=== PATIENT | female | born 1935 | race Caucasian/White ===

== ENCOUNTER 2017-05-17 12:37 | Emergency (ER) | payer MEDICARE, SELFPAY ==
[2017-05-17 12:38] VITALS: BP 149/86; PULSE 99; RESP 16; TEMP 36.7; O2SAT 97; BMI 22.8
[2017-05-17 13:16] VITALS: BP 141/92; PULSE 84; RESP 20; O2SAT 94
--- NOTE | 2017-05-17 13:32 | EKG12_ITS ---
Test Reason : GEN ILLNESS Blood Pressure : / mmHG Vent. Rate : 079 BPM Atrial Rate : 079 BPM P-R Int : 198 ms QRS Dur : 144 ms QT Int : 454 ms P-R-T Axes : 051 -21 096 degrees QTc Int : 520 ms Sinus rhythm with sinus arrhythmia with occasional Premature ventricular complexes Left bundle branch block Abnormal ECG Confirmed by CARINA TILLMAN, ISAIAH ([id number]), editor in chief newspaper OMI ROACH ([id number]) on 05/20/2017 3:55:22 PM Referred By: MELVA Confirmed By:ISAIAH LIM MD
--- NOTE | 2017-05-17 13:32 | RAD_ITS ---
STUDY: X-RAY CHEST REASON FOR EXAM: Female, 81 years old. Chest pain and cold for one month. TECHNIQUE: PA and lateral views of the chest. COMPARISON: November 22, 2016. FINDINGS: Cardiac monitoring leads are present. The lungs are expanded. There is mild interstitial thickening present in both lungs. There is mild groundglass attenuation at the right lung base near the right cardiophrenic angle. This could represent early airspace disease. There is no demonstrated pleural abnormality. There is mild cardiac enlargement. Normal mediastinum and staci. There is prominence of the pulmonary hilar arteries without peripheral pulmonary vascular congestion. There is atherosclerotic calcification of the aortic arch with tortuosity. There is demineralization of the osseous structures. There is increased thoracic kyphosis with mild multilevel thoracic spondylosis. There are degenerative changes of both shoulders. There is no demonstrated abnormality of the visualized soft tissue structures of the upper abdomen. RAD/Chest PA and Lateral IMPRESSION: Questionable early right basilar airspace disease possibly representing pneumonia. Electronically Signed: Kim Schrader MD at 14:56 EST , Service support ,
--- NOTE | 2017-05-17 13:32 | CT_ITS ---
STUDY: CT BRAIN WITHOUT CONTRAST REASON FOR EXAM: Female, 81 years old. Dizziness. RADIATION DOSAGE (If Supplied By Facility): CTDIvol = ( 44.99 ) mGy, DLP = ( 762.36 ) mGycm TECHNIQUE: Transaxial CT imaging of the brain was performed without administration of intravenous contrast material. Multiplanar reformations are submitted for interpretation. Individualized dose optimization techniques were used for this CT. COMPARISON: CT of the head dated November 22, 2016. FINDINGS: Normal soft tissue structures. 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 There is mild cerebral atrophy with widening of the extra-axial spaces and ventricular dilatation. There are areas of decreased attenuation within the white matter tracts of the supratentorial brain, consistent with microvascular disease changes. There are small punctate calcifications of the basal ganglia which are seen in the aging brain as a normal variant. Normal brainstem. Normal cerebellum. There is no intracranial hemorrhage. There is moderate atherosclerotic calcification of intracranial arteries. There appears to be sequela of bilateral mastoidectomies. There is mild mucoperiosteal thickening within the anterior ethmoid sinuses. There is a small mucous retention cyst in left maxillary sinus. CT/Brain/Head without Contrast IMPRESSION: 1. Chronic involutional changes of the brain. 2. No CT evidence of acute intracranial hemorrhage. Electronically Signed: Kim Schrader MD at 14:35 EST , Service support ,
--- NOTE | 2017-05-17 13:36 | ED.DCSUM_ITS ---
- ER Visit Summary Date of Service: 05/17/17 Chief Complaint: Dizziness History of Present Illness: The patient is a 81 F who presents with complaint of dizziness this morning. Patient states that she was getting dressed because she thought she might need to come to the emergency department when she had an episode of dizziness. She currently feels better. She called her neighbor who took her blood pressure and noted it was elevated. Patient states she has had cold symptoms for 1 month with hoarseness for 2 weeks. She is now complaining of a painful neck lump in the left side. She denies any visual changes. No chest pain or shortness of breath. Patient does have a history of subdural hematoma due to fall. Patient has multiple complaints at this time, and is also noting that she drank NyQuil 1 week ago for her cold symptoms and hallucinated. At that time she had not taken her blood pressure medications in case of an interaction, but she since is taking them again. She has not used NyQuil since the first dose because of the side effects. Patient denies any alcohol use. Physical Examination: Vital signs: afebrile, hemodynamically stable, no hypoxia on room air General: well nourished, well developed, in no distress Skin: warm, dry, no rash, no pallor HEENT: normocephalic and atraumatic; PERRL, EOMI, moist mucous membranes oropharynx is clear, no lesions, no posterior exudate or swelling. No sublingual edema. Neck is supple with no meningismus, with no overt lymphadenopathy but mild tenderness in the region of the left anterior inferior cervical chain Cardiovascular: regular rate and rhythm without murmurs, no peripheral edema, 2 + pulses all distal extremities Respiratory: No increased work of breathing, lungs are clear to auscultation bilaterally, no rales, rhonchi or wheezing Abdominal: Abdomen is soft, nontender with normoactive bowel sounds, no guarding or rebound, no masses MSK: Moves all extremities, no deformities, normal strength Neuro: Awake and alert, oriented ?4. No facial droop, sensation and motor function intact and symmetric Test Results: Abnormal Lab Results 05/17/17 05/17/17 05/17/17 13:45 13:45 13:45 WBC 7.8 RBC 4.40 Hgb 11.7 L Hct 38.3 MCV 87.0 MCH 26.6 L MCHC 30.5 L RDW 12.8 RDW Differential 41.5 Plt Count 243 MPV 9.3 Immature Gran % (Auto) 0.100 Neut % (Auto) 75.6 H Lymph % (Auto) 12.9 L [place] % (Auto) 7.6 Eos % (Auto) 3.5 Baso % (Auto) 0.3 Absolute Neuts (auto) 5.9 Absolute Lymphs (auto) 1.01 Total Counted Not Reportable PT 12.7 INR 1.0 APTT 31.5 Sodium 139 Potassium 4.1 Chloride 105 Carbon Dioxide 27.0 Anion Gap 7 BUN 13 Creatinine 0.75 Estim Creat Clear Calc 44.36 Est GFR (MDRD) Af Amer 95 Est GFR (MDRD) Non-Af 79 BUN/Creatinine Ratio 17.3 Glucose 106 Calcium 8.5 Troponin I < 0.02 Emergency Department Course and Treatment: Patient presents with multiple complaints and it is difficult to elucidate the complaint that she actually brought her to the emergency department. She does state she came in because of dizziness this morning, but she states the dizziness occurred while she was getting dressed to come to the emergency department. Her most concerning complaint seems to be her month of cold symptoms. Because of her multiple complaints and the history of subdural hematoma, a CT of the head was performed to rule out a return intracranial hemorrhage. Also because of the dizziness, a chest pain workup was performed to look for any possible atypical ACS. Patient' s left neck pain seems most consistent with tender lymphadenopathy likely related to her respiratory symptoms, and no abnormal findings were noted that would require imaging of the neck. EKG showed no ischemic changes. Troponin negative. CT of the head showed no intracranial hemorrhage or other acute process. Patient had no leukocytosis. No electrolyte derangements. Chest x-ray showed a questionable developing infiltrate in the right lower lobe. Patient did have a moist cough noted throughout her visit. She had no hypoxia or tachycardia during her workup. Because of patient's prolonged respiratory symptoms and now the questionable finding on chest x-ray, she was started on antibiotics for community-acquired pneumonia. She stated she felt much better and was ready to go home. Her CURB- 65 score is 1 for age, making her low risk for 30 day mortality, thus patient will be managed outpatient. She is to return if any worsening of her symptoms or any new concerning symptoms. He can agreed with this plan. She was discharged home. Treatment Plan: [] Disposition: [] Impression: Community-acquired pneumonia, right lower lobe This note was generated with [employer] dictation software. It may contain incorrect words, spelling, and punctuation that were not noted in review of the chart prior to signing ED Disposition - Plan for ED Patient: Disposition: Home or Assisted Living Chief Complaint: General Illness Instructions: ED Pneumonia Adult Prescriptions: Azithromycin [Zithromax Z-Zia] 250 mg PO UD #1 box Referrals: Natalee Spaulding MD [Primary Care Provider] - 2 Days Additional Instructions: Please follow up with your doctor on Friday for another evaluation of your cough and concern for pneumonia. Take the antibiotic azithromycin daily as prescribed. If you have any worsening of your condition, such as shortness of breath, worsening cough, fever, or any other concerns, please return to the emergency department immediately for another evaluation. You may use Tylenol as needed for headache, fever, aches and pains, including the tender lymph node on the left neck. Please return to the emergency department immediately if you have any worsening of your condition or any new, concerning symptoms.
[2017-05-17 14:02] LABS: Absolute Lymphocyte Count 1.01 X10^3/ul (0.83-4.51); Absolute Neutrophil Count 5.9 X10^3/uL (2.0-7.7); Basophil# 0.02 X10^3/uL; Basophil% 0.3 % (0-1); Eosinophil# 0.27 X10^3/uL; Eosinophils% 3.5 % (0-5); Hematocrit 38.3 % (37-47); Hemoglobin 11.7 g/dl (12.0-15.0); Lymphocyte # 1.01 X10^3/ul (4.0); Lymphocyte % 12.9 % (19-41); Mean Corp Hgb Conc 30.5 g/gl (32-36); Mean Corpuscular Hgb 26.6 pg (27.0-32.0); Mean Platelet Vol. 9.3 fl (6.2-12.0); Monocyte# 0.59 X10^3/uL; Monocyte% 7.6 % (0-10); Neutrophil % 75.6 % (47-70); POSITIVE COUNT NO; POSITIVE DIFFERENTIAL NO; POSITIVE MORPHOLOGY NO; Platelet Count 243 K/mm3 (150-450); RBC Distribution Width CV 12.8 % (11.6-14.6); RBC Distribution Width SD 41.5 fl (35.1-43.9); White Blood Count 7.8 K/mm3 (4.4-11.0)
[2017-05-17 14:08] LABS: Prothrombin Time (Protime)PT. 12.7 SECONDS (11.7-14.9)
[2017-05-17 14:09] LABS: Partial Thromboplast Time 31.5 Seconds (24.1-36.2)
[2017-05-17 14:18] LABS: Anion Gap 7 (5-15); BUN 13 mg/dL (7-18); BUN/Creat Ratio 17.3 RATIO (10-20); Calcium,Total 8.5 mg/dL (8.5-10.1); Chloride 105 mmol/L (98-107); Creatinine, Serum 0.75 mg/dL (0.55-1.02); EST Glomerular Filtration Rate 79 mL/min (>60); Est Glom Filt Rate - Afr Amer 95 mL/min (>60); Estimated Creatinine Clearance 44.36 ml/min; Glucose 106 mg/dL (74-106); Potassium 4.1 mmol/L (3.5-5.1); Sodium Level 139 mmol/L (136-145)
[2017-05-17 15:03] VITALS: BP 164/98; PULSE 76; RESP 20; O2SAT 97
--- NOTE | 2017-05-17 16:22 | ED.DEP ---
ED Disposition - Plan for ED Patient: Disposition: Home or Assisted Living Chief Complaint: General Illness Instructions: ED Pneumonia Adult Prescriptions: Azithromycin [Zithromax Z-Zia] 250 mg PO UD #1 box Referrals: Natalee Spaulding MD [Primary Care Provider] - 2 Days Additional Instructions: Please follow up with your doctor on Friday for another evaluation of your cough and concern for pneumonia. Take the antibiotic azithromycin daily as prescribed. If you have any worsening of your condition, such as shortness of breath, worsening cough, fever, or any other concerns, please return to the emergency department immediately for another evaluation. You may use Tylenol as needed for headache, fever, aches and pains, including the tender lymph node on the left neck. Please return to the emergency department immediately if you have any worsening of your condition or any new, concerning symptoms.
[2017-05-17 16:46] VITALS: BP 160/91; PULSE 85; RESP 16
== END 2017-05-17 16:47 | disposition home or self-care (01) ==
PROVIDERS: Emergency Provider Emergency Medicine; Family Provider Internal Medicine; PCP Internal Medicine
DX: J18.1 Lobar pneumonia, unspecified organism (principal); R42 Dizziness and giddiness; M54.2 Cervicalgia; H92.09 Otalgia, unspecified ear; I49.3 Ventricular premature depolarization; I44.7 Left bundle-branch block, unspecified; I10 Essential (primary) hypertension; Z86.73 Personal history of transient ischemic attack (TIA), and cerebral infarction without residual deficits; Z79.899 Other long term (current) drug therapy
CPT/HCPCS: 70450; 71046; 80048; 84484; 85025; 85610; 85730; 93005; 99284; A4216

== ENCOUNTER 2017-05-21 10:55 | Emergency (ER) | payer MEDICARE, SELFPAY ==
[2017-05-21 10:56] VITALS: BP 123/58; PULSE 83; RESP 16; TEMP 36.3; O2SAT 98; BMI 21.9
--- NOTE | 2017-05-21 10:58 | ED.RN ---
PT BROUGHT IN BY BROTHER, ANDI KRUGER, PHONE NUMBER IS [phone]
--- NOTE | 2017-05-21 11:20 | RAD_ITS ---
STUDY: X-RAY CHEST REASON FOR EXAM: Female, 81 years old. Hypotension. TECHNIQUE: PA and lateral views of the chest. COMPARISON: Comparison is made with prior study dated May 17, 2017. FINDINGS: Hyperinflation. Stable mild increased linear markings at the lung bases slightly worse on the right side suggestive of scarring. There is no demonstrated pleural abnormality. Normal size heart. Normal mediastinum and staci. Normal visualized pulmonary arteries. There is atherosclerotic calcification of the aortic arch with tortuosity. There are diffuse degenerative changes of the visualized thoracic spine. Levoscoliosis of the thoracic spine and dextroscoliosis of the lumbar spine. There is degenerative osteoarthritis of the bilateral shoulders. There is no demonstrated abnormality of the visualized soft tissue structures of the upper abdomen. RAD/Chest PA and Lateral IMPRESSION: Hyperinflation. Increased markings at the lung bases suggestive of scarring. Electronically Signed: Francisco Hairston MD at 12:19 EST Tel [phone], Service support ,
--- NOTE | 2017-05-21 11:20 | EKG12_ITS ---
Test Reason : REPEAT Blood Pressure : / mmHG Vent. Rate : 068 BPM Atrial Rate : 068 BPM P-R Int : 168 ms QRS Dur : 136 ms QT Int : 474 ms P-R-T Axes : 054 008 100 degrees QTc Int : 504 ms Normal sinus rhythm Non-specific intra-ventricular conduction block Nonspecific T wave abnormality Abnormal ECG Confirmed by CARINA TILLMAN, ISAIAH ([id number]), visual effects editor OMI ROACH ([id number]) on 05/26/2017 2:01:11 PM Referred By: MADISYN Confirmed By:ISAIAH LIM MD
[2017-05-21 11:50] LABS: Absolute Neutrophil Count 4.1 X10^3/uL (2.0-7.7); Basophil# 0.02 X10^3/uL; Basophil% 0.3 % (0-1); Eosinophil# 0.32 X10^3/uL; Eosinophils% 5.2 % (0-5); Hematocrit 38.1 % (37-47); Hemoglobin 11.7 g/dl (12.0-15.0); Lymphocyte % 16.3 % (19-41); Mean Corp Hgb Conc 30.7 g/gl (32-36); Mean Corpuscular Hgb 27.2 pg (27.0-32.0); Mean Corpuscular Volume 88.6 fL (81-99); Mean Platelet Vol. 9.1 fl (6.2-12.0); Monocyte# 0.67 X10^3/uL; Monocyte% 10.9 % (0-10); Neutrophil # 4.11 X10^3/uL (2.7-7.7); Neutrophil % 67.1 % (47-70); POSITIVE COUNT NO; POSITIVE DIFFERENTIAL NO; POSITIVE MORPHOLOGY NO; Platelet Count 260 K/mm3 (150-450); RBC Distribution Width CV 12.7 % (11.6-14.6); RBC Distribution Width SD 40.7 fl (35.1-43.9); White Blood Count 6.1 K/mm3 (4.4-11.0)
[2017-05-21] MEDS: 0.9% Normal Saline 1,000 ML 1000 ML IV (11:52)
[2017-05-21 12:01] LABS: Anion Gap 5 (5-15); BUN 24 mg/dL (7-18); BUN/Creat Ratio 19.2 RATIO (10-20); Calcium,Total 8.3 mg/dL (8.5-10.1); Chloride 106 mmol/L (98-107); Creatinine, Serum 1.25 mg/dL (0.55-1.02); EST Glomerular Filtration Rate 44 mL/min (>60); Est Glom Filt Rate - Afr Amer 53 mL/min (>60); Estimated Creatinine Clearance 35.49 ml/min; Glucose 95 mg/dL (74-106); Potassium 4.1 mmol/L (3.5-5.1); Sodium Level 141 mmol/L (136-145)
[2017-05-21 13:17] VITALS: BP 129/69; BP 135/75; BP 139/77; PULSE 65; PULSE 70; PULSE 74; RESP 21; O2SAT 94
--- NOTE | 2017-05-21 13:22 | EKG12_ITS ---
Test Reason : DIZZY Blood Pressure : / mmHG Vent. Rate : 060 BPM Atrial Rate : 060 BPM P-R Int : 204 ms QRS Dur : 112 ms QT Int : 492 ms P-R-T Axes : 061 -03 071 degrees QTc Int : 492 ms Normal sinus rhythm Incomplete left bundle branch block Nonspecific T wave abnormality Prolonged QT Abnormal ECG Confirmed by CARINA TILLMAN, ISAIAH ([id number]), assistant film editor OMI ROACH ([id number]) on 05/26/2017 2:01:32 PM Referred By: MADISYN Confirmed By:ISAIAH LIM MD
--- NOTE | 2017-05-21 15:38 | ED.VISSUMM ---
- ER Visit Summary Date of Service: 05/21/17 Chief Complaint: Dizzy, low blood pressure History of Present Illness: The patient is a 81 F is a very poor historian. Patient was seen here in the ER on May 17 for dizziness and cough. She was started on a Z-Zia when x-ray showed possible lower lobe infiltrate. At her follow-up appointment today she reported that she still felt dizzy whenever she stands up. Her systolic blood pressure was noted to be in the 70s and 80s in the office and she was sent to the ER. Patient reports still coughing but states the mucus in her chest is loosening up. She denies chest pain. Past history significant for CVA, coronary disease, COPD, high cholesterol, cardiomyopathy, subdural hemorrhage, chronic right arm pain. Physical Examination: Vital signs are unremarkable. Blood pressure here is 123/58. Head and neck examination is unremarkable. Heart is regular rate and rhythm. Lung sounds are clear with good air movement. Abdomen is soft nontender. Neuro exam reveals no focal deficits. Patient does have a flat affect. Test Results: Two-view chest x-ray shows hyperinflation with scarring noted at the lung bases. CBC and chemistry studies are significant for BUN of 24 and a creatinine 1.25. Is compared to a creatinine of 0.75 on the third. EKG is sinus at 60. She has anterior T inversions that appear new when compared to the recent study. Due to this troponin is also checked but returns negative at less than 0.02. Emergency Department Course and Treatment: Patient was given IV fluids in the emergency room. Orthostatic vital signs are unremarkable. Patient was discussed with hospitalist for admission in light of the EKG changes. Dr. Mast reviewed the EKGs with Dr. Junior, who noted the T-wave inversions appear to be dependent on a partial left bundle branch block that she goes in and out of. With the patient not having cardiac symptoms he does not feel the patient needs to be admitted. He did request the patient have an event monitor. Dr. Mast arranged for this to be done tomorrow as an outpatient. Treatment Plan: [] Disposition: Discharge Impression: Dizziness This note was generated with [employer] software. It may contain incorrect words, spelling, and punctuation that were not noted in review of the chart prior to signing ED Disposition - Plan for ED Patient: Disposition: Home or Assisted Living Chief Complaint: Hypotension Instructions: ED Dizziness [facility] Referrals: Natalee Spaulding MD [Primary Care Provider] - 5-7 Days Additional Instructions: The hospital will call you tomorrow to come in for an event monitor.
== END 2017-05-21 15:58 | disposition home or self-care (01) ==
PROVIDERS: Emergency Provider Emergency Medicine; Family Provider Internal Medicine; PCP Internal Medicine
DX: R42 Dizziness and giddiness (principal); R03.1 Nonspecific low blood-pressure reading; R05 Cough; J98.4 Other disorders of lung; I44.7 Left bundle-branch block, unspecified; Z86.73 Personal history of transient ischemic attack (TIA), and cerebral infarction without residual deficits; I25.10 Atherosclerotic heart disease of native coronary artery without angina pectoris; J44.9 Chronic obstructive pulmonary disease, unspecified; E78.00 Pure hypercholesterolemia, unspecified; I42.9 Cardiomyopathy, unspecified; M79.601 Pain in right arm; G89.29 Other chronic pain; Z86.79 Personal history of other diseases of the circulatory system; Z79.899 Other long term (current) drug therapy
CPT/HCPCS: 71046; 80048; 84484; 85025; 93005; 99284; J7030; A4216

== ENCOUNTER 2017-11-24 14:32 | Observation (INO) | payer MEDICARE, SELFPAY ==
[2017-11-24] VITALS (7 sets, daily range): BP systolic 134–170; BP diastolic 78–95; PULSE 76–98; RESP 16–18; TEMP 36.7–36.8; O2SAT 93–98; BMI 22.1; BMI 21.4; BMI 21.5
--- NOTE | 2017-11-24 14:46 | CT_ITS ---
STUDY: CT BRAIN WITHOUT CONTRAST REASON FOR EXAM: Female, 82 years old. Laceration to the left side of the scalp following a fall. The patient is on Plavix. RADIATION DOSAGE (If Supplied By Facility): CTDIvol = ( 44.99 ) mGy, DLP = ( 779.24 ) mGycm TECHNIQUE: Transaxial CT imaging of the brain was performed without administration of intravenous contrast material. Individualized dose optimization techniques were used for this CT. COMPARISON: Comparison is made with prior examination dated May 17, 2017. FINDINGS: There is evidence of a scalp hematoma overlying the left frontal bone. 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 There is mild cerebral atrophy with widening of the extra-axial spaces and ventricular dilatation. There are areas of decreased attenuation within the white matter tracts of the supratentorial brain, consistent with microvascular disease changes. Normal basal ganglia and thalami. Normal brainstem. Normal cerebellum. There is no intracranial hemorrhage. There are no findings of an acute ischemic infarction. Atherosclerotic calcification of the cavernous portions of the internal carotid arteries bilaterally. Normal visualized paranasal sinuses. CT/Brain/Head without Contrast IMPRESSION: Chronic involutional changes of the brain. Scalp hematoma overlying the left frontal bone. Electronically Signed: Francisco Hairston MD at 15:49 EDT Tel [phone], Service support ,
--- NOTE | 2017-11-24 14:47 | RAD_ITS ---
STUDY: X-RAY - PELVIS AND LEFT HIP REASON FOR EXAM: Female, 82 years old. Left hip pain following a fall. TECHNIQUE: Radiological exam, hip, unilateral, with pelvis when performed; 2 or 3 views. COMPARISON: None. FINDINGS: There is a non-specific bowel gas pattern. Normal visualized soft tissue structures. Normal bilateral iliac wings, sacroiliac joints and visualized sacrum. Normal bilateral superior and inferior pubic rami. Normal pubic symphysis. Normal bilateral ischial tuberosities. Normal visualized femoral head. Normal acetabulum. There is mild articular joint space narrowing of the hip. RAD/HIP, UNI W/ Pelvis 2-3 Views IMPRESSION: Mild degree of degenerative changes of the left hip. No fracture or dislocation is seen. Status post laminectomy and fusion at the L4-L5 level. Electronically Signed: Francisco Hairston MD at 16:04 EDT Tel [phone], Service support ,
--- NOTE | 2017-11-24 14:50 | CT_ITS ---
STUDY: CT CERVICAL SPINE WITHOUT CONTRAST REASON FOR EXAM: Female, 82 years old. Laceration to the forehead following a fall. RADIATION DOSAGE (If Supplied By Facility): CTDIvol = ( 18.13 ) mGy, DLP = ( 336.22 ) mGycm TECHNIQUE: High resolution transaxial imaging was performed without contrast material. Sagittal and coronal images were reconstructed. Individualized dose optimization techniques were used for this CT. COMPARISON: Comparison is made with a prior examination dated November 22, 2016. FINDINGS: Normal craniovertebral junction. There are degenerative changes of the anterior atlantoaxial articulation. Normal odontoid process. There is straightening of the normal cervical lordosis. Normal vertebral bodies and posterior osseous elements. C2-3: Normal endplates. Normal disc height and morphology. Normal central canal and intervertebral neuroforamina. C3-4: Moderate degree of disc space narrowing. Spondylosis. Uncovertebral arthrosis with the right neural foraminal stenosis. C4-5: Moderate degree of disc space narrowing with spondylosis. Uncovertebral arthrosis. A mild degree of bilateral neural foraminal stenosis. C5-6: Moderate degree of disc space narrowing with spondylosis. This is worse on the right side. Bilateral neural foraminal stenosis worse on the right side. C6-7: Moderate degree of disc space narrowing. Spondylosis. Uncovertebral arthrosis. Mild degree of bilateral neural foraminal stenosis. Calcification of the carotid bifurcations bilaterally. CT/Spine Cervical without Contras IMPRESSION: Multilevel degenerative changes, as described above. No acute abnormality is seen. Electronically Signed: Francisco Hairston MD at 15:52 EDT Tel [phone], Service support ,
--- NOTE | 2017-11-24 14:51 | RAD_ITS ---
STUDY: X-RAY - LUMBAR SPINE REASON FOR EXAM: Female, 82 years old. Left hip pain following a fall. TECHNIQUE: 5 view(s) of the lumbar spine were obtained. COMPARISON: None FINDINGS: Normal lumbar lordosis. There is a dextroscoliosis of the lumbar spine. Grade 2 anterior listhesis of L4 on L5. The patient is status post laminectomy at the L4-L5 level with interpedicular screw fixation. Normal vertebral bodies and endplates. Moderate degree of disc space narrowing at the L4-L5 and L5-S1 levels. There is atherosclerotic calcification of the abdominal aorta without a demonstrated aneurysm. RAD/Lumbar Spine 2 or 3 Views IMPRESSION: Degenerative changes of the spine, as detailed above. Prior laminectomy at the L4-L5 level with interpedicular screw fixation. Grade 2 anterior listhesis of L4 on L5. Electronically Signed: Francisco Hairston MD at 16:04 EDT Tel [phone], Service support ,
--- NOTE | 2017-11-24 14:52 | ED.VISSUMM ---
- ER Visit Summary Date of Service: 11/24/17 Chief Complaint: Tripped and fell History of Present Illness: The patient is a 82 F poorly on Plavix. Was leaving her dentist office when she missed a step fell over the curb and struck her forehead. Patient brought in by squad backboard and c-collar. She is also complaining of the skin to her left elbow, low back pain and left hip discomfort. She denies any LOC. States she felt fine prior to the fall. Physical Examination: Elderly female backboard and c-collar. Vital signs are stable and afebrile. H EENT exam pupils are round reactive to light about 2 mm bilaterally. She has contusion/hematoma and abrasions to her forehead. She is in a c-collar. Her C-spine is nontender but she will remain in the c-collar. Trachea midline. Lungs clear to auscultation. Heart regular rhythm rate about 90 no murmur. Chest wall nontender. Abdomen soft nontender. Pelvic girdle is intact. She does not have any obvious shortening or external rotation of her left hip. She is able to flex and extend at the left hip. Right lower extremity is unremarkable. Left knee, ankle and foot are nontender neurovascularly intact. She is a skin tear in her left elbow but is able to flex and extend the left elbow. The hands have normal reservations sales supervisor strength. The wrists are nontender. Shoulders are not tender. Neurologically she is awake and alert. She is very hard of hearing. She is able to give a history and does follow commands. GCS is 15. Test Results: Left elbow x-ray shows no acute fracture. Soft tissue laceration. Left hip and pelvis x-ray shows no acute abdomen body. Arthritic changes. LS spine x-ray shows an old compression fracture but no acute abnormality. There is prior laminectomy and orthopedic hardware. CT of the brain shows no intracranial bleed or fracture. There is a soft tissue hematoma in the forehead. CT C-spine shows chronic changes but no acute process. Emergency Department Course and Treatment: Elderly female tripped and fell with a head injury on Plavix. She will need CAT scan imaging and plain films. Repeat exam at 1650 p.m. no change. Patient's left elbow skin be cleaned and dressed. Treatment Plan: Obvious concussion. I set her up to standard walker she became so dizzy she almost threw up. Given her age and being on a blood thinner I do not feel comfortable with her being discharged home. I will speak to the hospitalist about admission and he may even have to have drug abuse social worker involved for placement depending on how she is doing tomorrow. Disposition: Admission Impression: Acute fall after tripping Closed head injury with contusions and abrasions to the forehead. Acute concussion Unable to ambulate due to recent head injury. Anticoagulated on Plavix Left elbow skin tear Left hip contusion This note was generated with [employer] dictation software. It may contain incorrect words, spelling, and punctuation that were not noted in review of the chart prior to signing ED Disposition - Plan for ED Patient: Disposition: Home or Assisted Living Chief Complaint: Fall Instructions: ED Mechanical Fall, ED Head Injury Closed Referrals: Natalee Spaulding MD [Primary Care Provider] - 3-5 Days if not improving Additional Instructions: Ice all sore areas. Keep the skin tear in your left elbow clean and apply antibiotic ointment daily. Tylenol for pain. Return if severe headache, intractable vomiting or not acting right. Hold your Plavix dose today. And may restart tomorrow.
--- NOTE | 2017-11-24 15:20 | RAD_ITS ---
STUDY: X-RAY - LEFT ELBOW REASON FOR EXAM: Female, 82 years old. Soft tissue injury following a fall. TECHNIQUE: 3 view(s) of the elbow. COMPARISON: None. FINDINGS: Normal visualized humerus, radius and ulna. Normal radiocapitellar and ulnotrochlear articulations. There is evidence of a soft tissue laceration posteriorly. No fracture or dislocation. RAD/Elbow min 3 Views IMPRESSION: Posterior soft tissue laceration. Electronically Signed: Francisco Hairston MD at 15:57 EDT Tel [phone], Service support ,
--- NOTE | 2017-11-24 16:58 | ED.DEP ---
ED Disposition - Plan for ED Patient: Disposition: Home or Assisted Living Chief Complaint: Fall Instructions: ED Mechanical Fall, ED Head Injury Closed Referrals: Natalee Spaulding MD [Primary Care Provider] - 3-5 Days if not improving Additional Instructions: Ice all sore areas. Keep the skin tear in your left elbow clean and apply antibiotic ointment daily. Tylenol for pain. Return if severe headache, intractable vomiting or not acting right. Hold your Plavix dose today. And may restart tomorrow.
--- NOTE | 2017-11-24 17:13 | NURSING ---
DR RAO FOR DR LACKEY
--- NOTE | 2017-11-24 17:33 | PCM.HP.STD ---
Problem List (1) Concussion Status: Acute Qualifiers: Encounter type: initial encounter Loss of consciousness presence/duration: without LOC Qualified Code(s): S06.0X0A - Concussion without loss of consciousness, initial encounter (2) Fall Status: Acute Qualifiers: Encounter type: initial encounter Qualified Code(s): W19.XXXA - Unspecified fall, initial encounter (3) HTN (hypertension) Status: Chronic Qualifiers: Hypertension type: essential hypertension Qualified Code(s): I10 - Essential (primary) hypertension (4) Stroke Status: Chronic Qualifiers: CVA mechanism: unspecified Qualified Code(s): I63.9 - Cerebral infarction, unspecified (5) CHF (congestive heart failure) Status: Chronic Qualifiers: Heart failure type: systolic Heart failure chronicity: chronic Qualified Code(s): I50.22 - Chronic systolic (congestive) heart failure (6) COPD (chronic obstructive pulmonary disease) Status: Chronic Qualifiers: Emphysema type: unspecified (7) CAD (coronary artery disease) Status: Chronic Qualifiers: Coronary Disease-Associated Artery/Lesion type: unspecified vessel or lesion type [place] vs. transplanted heart: unspecified whether [place] or transplanted heart Associated angina: angina presence unspecified Qualified Code(s): I25.10 - Atherosclerotic heart disease of [place] coronary artery without angina pectoris (8) HLD (hyperlipidemia) Status: Chronic Qualifiers: (9) Cardiomyopathy Status: Chronic Qualifiers: Cardiomyopathy type: unspecified Qualified Code(s): I42.9 - Cardiomyopathy, unspecified History of Present Illness Date of Admission: 11/24/17 Chief Complaint: Mechanical fall, hit head without LOC. The patient is a 82 y/o F w/ PMHx: HTN, HLD, History of TIA/CVA, Systolic CHF/Cardiomyopathy unclear type, Chronic COPD, Continued Tobacco use, CAD without PCI, Anxiety and Depression who presents to the [facility] ED on 11/24/17 following mechanical fall while stepping off the curb landing face forward with no loss of consciousness but significant discomfort to the forehead, noted bleeding from her mouth secondary to laceration on the right internal cheek following evaluation by her dentist. In the emergency room workup included T 98.2, heart rate 94, BP 163/94, respiratory rate 18, 96% on room air, no labs were obtained upon ED presentation, left frontal bone scalp hematoma, plain film pelvis and hip with mild degree of degenerative changes of the left hip with no fracture or dislocation seen, evident status post laminectomy and fusion at the level of L4-L5, CT cervical spine with multilevel degenerative changes, plain film lumbar spine with the degenerative changes of the spine, prior laminectomy at L4-L5 with interpedicular screw fixation, grade 2 anterolisthesis of L4 on L5, left elbow plain film with posterior soft tissue laceration. Upon ED presentation patient left frontal scalp laceration as well as left elbow laceration cleaned and dressed with no suturing or stapling required. Upon attempts for patient to discharge to home with standing she was severely lightheaded and dizzy with significant concern for fall risk. Patient denied taking her Plavix therapy on day of ED presentation. Past Medical History Past Medical History (Chronic Problems): Chronic Problems HTN (hypertension) (Chronic) Stroke (Chronic) CHF (congestive heart failure) (Chronic) COPD (chronic obstructive pulmonary disease) (Chronic) CAD (coronary artery disease) (Chronic) HLD (hyperlipidemia) (Chronic) Cardiomyopathy (Chronic) Allergies Sulfa (Sulfonamide Antibiotics) Allergy (Severe, Verified 11/24/17 14:36) Hives gabapentin Adverse Reaction (Verified 11/24/17 14:36) Other zolpidem [From Ambien] Adverse Reaction (Verified 11/24/17 14:36) Unknown Home Medications: Ambulatory Orders Medication Instructions Recorded Albuterol Aerosols [Ventolin 2.5 mg INHALATION Q4HWA.RT 04/17/16 Aerosols] Carvedilol [Coreg (Beta Enriqueta)] 3.125 mg PO BID 04/17/16 Glucosam/Hernan-Msm1/C/Francisco/Bosw 1 tab PO DAILY 11/07/16 [Osteo Bi-Flex Caplet] Albuterol Sulfate [Ventolin Hfa] 2 puff INHALATION Q6H PRN PRN 11/24/17 Amitriptyline HCl [Elavil] 100 mg PO QHS 11/24/17 Atorvastatin Calcium [Lipitor] 10 mg PO QHS 11/24/17 Citalopram [Celexa] 20 mg PO DAILY 11/24/17 Clopidogrel Bisulfate [Plavix] 75 mg PO DAILY 11/24/17 Surgical History: - - Patient with lumbar and thoracic spinal interventions. Patient denies any PCI history. 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 Tobacco Use: Cigarettes Alcohol: Occasional Drugs: None - *Family History Maternal History Items: High Cholesterol, Heart Disease, Hypertension Paternal History Items: Heart Disease, Stroke Review of Systems Constitutional: Reports: Malaise, Weakness, Fatigue. Denies: Chills, Fever, Weight Change HEENT: Reports: Head Aches. Denies: Sinus Congestion, Sinus Drainage Cardiovascular: Denies: Chest Pain, Palpitations Respiratory: Denies: Cough, Shortness of breath at rest, Sputum production Gastrointestinal: Denies: Abdominal Pain, Nausea, Vomiting Genitourinary: Denies: Dysuria Musculoskeletal: Reports: Back Pain. Denies: Joint Pain, Joint Tenderness Skin: Reports: Skin Changes, Wounds. Denies: Rash Neurological: Reports: Confusion. Denies: Focal weakness, Numbness, Tingling Psychiatric: Reports: Anxiety, Depression. Denies: Homicidal Ideations, Suicidal Ideations Hematologic/ Lymphatic: Reports: Easy Bruising, Easy Bleeding VTE Information - Inpt Only VTE Present on Admission: No VTE Mechan Device Prophylaxis: SCD's VTE Pharm Prophylaxis ordered?: No Reason prophylaxis not ordered:: Medical Contraindication Patient Problems: Active and Suspected Problems Fall (Acute) Concussion (Acute) Subjective: Patient seated upright in the ED bed, notes ongoing discomfort to the head primarily in the frontal region where she had laceration. Objective: Physical Examination: General: awake, alert, oriented to self, place, year, but confused about some recent events including on day of ED presentation, cooperative, seated upright in the ED bed in no apparent distress. Skin: normal color, turgor, no icterus, cyanosis except notable dressed laceration to the left frontal forehead as well as left elbow laceration dressed in addition to a contusion on the left hip and abrasions to the hands as well as laceration on the inside of the right cheek and occasional ecchymoses, very staged to the extremities. HEENT: Patient status post mechanical fall with laceration to the right frontal forehead region with dressing in place/NC, EOMI, PERRLA, mildly dry MM, no carotid bruits or JVD noted, laceration to the inside of the right cheek with no current bleeding. Lungs: Diminished breath sounds throughout, greater bilateral bases, no rales, ronchi or wheezing. Heart: Regular rate and rhythm; no gallop, rub audible. Abdomen: soft, NTTP, ND, normal BS, no HSM. Extremities: no cyanosis, clubbing, mild BL LE edema. Neurological: patient awake, alert, oriented as noted; cognitive function not baseline intact; pupils equally reactive to light and accomodation; cranial nerves II-XII grossly normal, moving all 4 extremities, no focal deficits, strength moderately to severely globally decreased secondary to acute presentation. Psychiatric: affect appears normal, no acute evidence of depressive or anxiety feelings. - Physical Exam Vital Signs Temp Pulse Resp BP Pulse Ox 98.2 F 94 18 160/94 H 96 11/24/17 14:37 11/24/17 17:25 11/24/17 17:25 11/24/17 17:25 11/24/17 17:25 Oxygen Delivery Method Room Air Weight: 150 lb Body Mass Index (BMI) 22.1 Finger Stick Blood Glucose 92 Assessment/Plan All Active Problems Fall (Acute) Concussion (Acute) SDH (subdural hematoma) (Acute) Debility (Acute) Right arm pain (Acute) Abnormal ECG (Acute) The patient is a 82 y/o F w/ PMHx: HTN, HLD, History of TIA/CVA, Systolic CHF/Cardiomyopathy unclear type, Chronic COPD, Continued Tobacco use, CAD without PCI, Anxiety and Depression who presents to the [facility] ED on 11/24/17 following mechanical fall while stepping off the curb landing face forward with no loss of consciousness but significant discomfort to the forehead, noted bleeding from her mouth secondary to laceration on the right internal cheek following evaluation by her dentist. (1) Mechanical Fall w/ Head Laceration, L Elbow Laceration and L Hip Contusion w/ Suspected Concussion, On Plavix: In the emergency room workup included T 98.2, heart rate 94, BP 163/94, respiratory rate 18, 96% on room air, no labs were obtained upon ED presentation, left frontal bone scalp hematoma, plain film pelvis and hip with mild degree of degenerative changes of the left hip with no fracture or dislocation seen, evident status post laminectomy and fusion at the level of L4-L5, CT cervical spine with multilevel degenerative changes, plain film lumbar spine with the degenerative changes of the spine, prior laminectomy at L4-L5 with interpedicular screw fixation, grade 2 anterolisthesis of L4 on L5, left elbow plain film with posterior soft tissue laceration. Will admit to medical surgical floor, maintain on fall precautions, obtain routine labs upon admission, continue routine neurological assessments given suspected concussion, hold Plavix today and restart tomorrow if appropriate, dressing changes, wound RN consultation, PT, OT assessment as well as case management for discharge planning. (2) Hypertension: Continue home regimen including Coreg with hold parameters, PRN hydralazine. (3) Hyperlipidemia: Continue home statin regimen. (4) Chronic COPD: ATC duonebs, PRN albuterol, HOB, IS parameters. (5) Tobacco Abuse: Encouraged cessation, inpatient consultation per RT, NR deferred given low amount <7 mg patch equivalent. (6) History TIA: Holding plavix as noted temporarily, continue BP regimen with hold parameters, continue home statin therapy. (7) Anxiety and depression: Maintain on home Celexa regimen. (8) Systolic CHF/Cardiomyopathy Unclear Type: Chronic, compensated, continue home BB, statin therapy. Not on ACEI/ARB. Holding plavix as noted temporarily. (9) DVT prophylaxis: SCD, defer chemoprophylaxis given recent fall with head laceration, oral and elbow lacerations. (10) CODE status: Does not have living will or HCPOA. Encouraged these to be completed outpatient. Discussed CODE status at length including difference between FULL code, DNR-CCA and DNR-CC status. Following discussions about the differences in these status, confirmed FULL Code status. Advanced Care Planning Face to Face Time: 16 minutes. Code Visit OBSV E&M: 18855 Initial observation care L3 Procedures: 50758 Advncd Care Plan 30 Min
--- NOTE | 2017-11-24 17:38 | NURSING ---
MED SURG FALL, CONCUSSION, UNABLE TO WALK, HIP CONTUSION OBS WHITE
--- NOTE | 2017-11-24 19:10 | NURSING ---
PT PLACED IN GOWN, PLACED ON TELE MONITOR, VITALS OBTAINED-REPORT GIVEN TO ONCOMING SHIFT
[2017-11-24] MEDS: Ipratropium/Albuterol Sulfate 3 ML AMPUL.NEB INHALATION (20:06)
[2017-11-24 20:07] LABS: Absolute Lymphocyte Count 1.72 X10^3/ul (0.83-4.51); Absolute Neutrophil Count 5.9 X10^3/uL (2.0-7.7); Basophil# 0.02 X10^3/uL; Basophil% 0.2 % (0-1); Eosinophil# 0.12 X10^3/uL; Eosinophils% 1.4 % (0-5); Hematocrit 37.9 % (37-47); Hemoglobin 11.4 g/dl (12.0-15.0); Lymphocyte # 1.72 X10^3/ul (4.0); Lymphocyte % 20.5 % (19-41); Mean Corp Hgb Conc 30.1 g/gl (32-36); Mean Corpuscular Hgb 26.8 pg (27.0-32.0); Mean Corpuscular Volume 89.2 fL (81-99); Mean Platelet Vol. 9.6 fl (6.2-12.0); Monocyte# 0.65 X10^3/uL; Monocyte% 7.8 % (0-10); Neutrophil # 5.86 X10^3/uL (2.7-7.7); POSITIVE COUNT NO; POSITIVE DIFFERENTIAL NO; POSITIVE MORPHOLOGY NO; Platelet Count 229 K/mm3 (150-450); RBC Distribution Width SD 45.5 fl (35.1-43.9); Red Blood Count 4.25 M/mm3 (4.2-5.4); White Blood Count 8.4 K/mm3 (4.4-11.0)
[2017-11-24 20:15] LABS: Magnesium 2.5 mg/dL (1.6-2.6)
[2017-11-24 20:17] LABS: Anion Gap 5 (5-15); BUN 12 mg/dL (7-18); BUN/Creat Ratio 13.5 RATIO (10-20); Chloride 107 mmol/L (98-107); Creatinine, Serum 0.89 mg/dL (0.55-1.02); EST Glomerular Filtration Rate 65 mL/min (>60); Est Glom Filt Rate - Afr Amer 79 mL/min (>60); Estimated Creatinine Clearance 52.45 ml/min; Glucose 113 mg/dL (74-106); Sodium Level 142 mmol/L (136-145)
--- NOTE | 2017-11-24 20:38 | NURSING ---
Patient reports she does not eat meat
[2017-11-24] MEDS: Amitriptyline 100 MG Tablet PO (20:47)
[2017-11-24] MEDS: 0.9% Normal Saline 1,000 ML 75 ML IV (20:47)
[2017-11-24] MEDS: Atorvastatin Calcium 10 MG Tablet PO (20:47)
[2017-11-24] MEDS: Famotidine 20 MG Tablet PO (20:47)
[2017-11-24] MEDS: Carvedilol 3.125 MG TABLET PO (20:47)
[2017-11-25] VITALS (13 sets, daily range): BP systolic 151–170; BP diastolic 80–105; PULSE 69–84; RESP 16–18; TEMP 36.4–36.6; O2SAT 96–100
[2017-11-25] MEDS: Acetaminophen 325 MG Tablet 650 MG PO (04:42)
[2017-11-25 05:55] LABS: Absolute Lymphocyte Count 1.45 X10^3/ul (0.83-4.51); Absolute Neutrophil Count 4.6 X10^3/uL (2.0-7.7); Basophil# 0.02 X10^3/uL; Basophil% 0.3 % (0-1); Eosinophil# 0.17 X10^3/uL; Eosinophils% 2.5 % (0-5); Hematocrit 35.9 % (37-47); Hemoglobin 11.1 g/dl (12.0-15.0); Lymphocyte # 1.45 X10^3/ul (4.0); Lymphocyte % 21.2 % (19-41); Mean Corp Hgb Conc 30.9 g/gl (32-36); Mean Corpuscular Hgb 27.5 pg (27.0-32.0); Mean Corpuscular Volume 89.1 fL (81-99); Mean Platelet Vol. 10.2 fl (6.2-12.0); Monocyte% 8.8 % (0-10); Neutrophil % 67.1 % (47-70); Platelet Count 228 K/mm3 (150-450); RBC Distribution Width CV 13.7 % (11.6-14.6); Red Blood Count 4.03 M/mm3 (4.2-5.4); White Blood Count 6.9 K/mm3 (4.4-11.0)
[2017-11-25 05:57] LABS: POSITIVE COUNT NO; POSITIVE DIFFERENTIAL NO; POSITIVE MORPHOLOGY NO
[2017-11-25 06:10] LABS: Anion Gap 9 (5-15); BUN 10 mg/dL (7-18); Calcium,Total 8.7 mg/dL (8.5-10.1); Chloride 108 mmol/L (98-107); Creatinine, Serum 0.77 mg/dL (0.55-1.02); EST Glomerular Filtration Rate 77 mL/min (>60); Est Glom Filt Rate - Afr Amer 93 mL/min (>60); Estimated Creatinine Clearance 46.68 ml/min; Glucose 86 mg/dL (74-106); Sodium Level 145 mmol/L (136-145)
[2017-11-25] MEDS: Ipratropium/Albuterol Sulfate 3 ML AMPUL.NEB INHALATION ×3 (07:14→19:20)
--- NOTE | 2017-11-25 08:29 | MRI_ITS ---
STUDY: MRI BRAIN WITHOUT CONTRAST REASON FOR EXAM: Female, 82 years old. vertigo, recent fall, concussion, laceration forehead TECHNIQUE: Standardized multiplanar fat and water weighted pulse sequences were obtained. COMPARISON: CT November 24, 2017, MRI March 26, 2016 FINDINGS: Normal size of the ventricles and extra-axial spaces for the patient's age. There are a limited number of small white matter hyperintensities, distributed throughout the deep white matter tracts of the cerebral hemispheres, consistent with mild chronic white matter ischemic changes. Normal bilateral basal ganglia. Normal thalami. There is no extra-axial fluid accumulation. Normal flow voids within the major intracranial circulation suggesting patency by spin echo criteria. Normal sella turcica, pituitary gland, infundibular stalk, optic chiasm and hypothalamus. Normal tectal plate and pineal gland. Normal midbrain, vinod and medulla. Normal cerebellum. Normal basal cisterns. Normal bilateral temporal bones. Normal bilateral internal auditory canals. No demonstrated orbital abnormality, within the constraints of a routine brain study. There is minimal mucosal thickening of the left maxillary sinus.. Normal calvarium and skull base. There is left frontal scalp hematoma. Normal visualized upper cervical spine. MRI/Brain without Contrast IMPRESSION: Involutional changes of the brain, as described above. There is mild small vessel ischemic white matter disease. There is left frontal scalp hematoma. Electronically Signed: Monica Bautista MD at 13:12 EDT , Service support ,
--- NOTE | 2017-11-25 08:33 | PN_ITS ---
Patient Problems: Active and Suspected Problems Fall (Acute) Concussion (Acute) Subjective: Patient is an 82-year-old lady with multiple comorbidities including COPD, previous CVA who presented following a fall. On further questioning patient admitted to losing her balance and falling into objects Objective: GENERAL: Frail looking HEENT: Scalp laceration under~ right frontal region of the head NECK; supple, normal thyroid, no distended JVD. CHEST: Diminished to auscultation bilaterally, HEART: Regular S1-S2 ABDOMEN: soft, non-tender, normoactive bowel sounds, RECTAL: deferred EXTREMITIES: No edema, no clubbing, no cyanosis. FACULTY NEUROPSYCHOLOGIST: Awake; no lateralizing signs. SKIN: As described above Vitals/I&O's: Vital Signs Temp Pulse Resp BP Pulse Ox 97.8 F 72 18 151/80 H 96 11/25/17 02:36 11/25/17 07:14 11/25/17 07:14 11/25/17 02:36 11/25/17 07:14 Oxygen Delivery Method Room Air Weight: 65.9 kg Body Mass Index (BMI) 21.4 Intake and Output for Last 24 Hours 11/23/17 11/24/17 11/25/17 23:59 23:59 23:59 Intake Total 696 / 696 Balance 696 / 696 Laboratory Results 11/24/17 19:30: Sodium 142, Potassium 4.0, Chloride 107, Carbon Dioxide 30.0, Anion Gap 5, BUN 12, Creatinine 0.89, Estim Creat Clear Calc 52.45, Est GFR ( MDRD) Af Amer 79, Est GFR (MDRD) Non-Af 65, BUN/Creatinine Ratio 13.5, Glucose 113 H, Calcium 9.0 11/24/17 19:30: Magnesium 2.5 11/24/17 19:30: WBC 8.4, RBC 4.25, Hgb 11.4 L, Hct 37.9, MCV 89.2, MCH 26.8 L, MCHC 30.1 L, RDW 14.0, RDW Differential 45.5 H, Plt Count 229, MPV 9.6, Immature Gran % (Auto) 0.100, Neut % (Auto) 70.0, Lymph % (Auto) 20.5, Braxton % ( Auto) 7.8, Eos % (Auto) 1.4, Baso % (Auto) 0.2, Absolute Neuts (auto) 5.9, Absolute Lymphs (auto) 1.72, Total Counted Not Reportable 11/25/17 05:24: WBC 6.9, RBC 4.03 L, Hgb 11.1 L, Hct 35.9 L, MCV 89.1, MCH 27.5 , MCHC 30.9 L, RDW 13.7, RDW Differential 44.0 H, Plt Count 228, MPV 10.2, Immature Gran % (Auto) 0.100, Neut % (Auto) 67.1, Lymph % (Auto) 21.2, Braxton % ( Auto) 8.8, Eos % (Auto) 2.5, Baso % (Auto) 0.3, Absolute Neuts (auto) 4.6, Absolute Lymphs (auto) 1.45, Total Counted Not Reportable 11/25/17 05:24: Sodium 145, Potassium 4.0, Chloride 108 H, Carbon Dioxide 28.0, Anion Gap 9, BUN 10, Creatinine 0.77, Estim Creat Clear Calc 46.68, Est GFR ( MDRD) Af Amer 93, Est GFR (MDRD) Non-Af 77, BUN/Creatinine Ratio 13.0, Glucose 86, Calcium 8.7 Current Medications Acetaminophen (Tylenol) 650 mg PO Q6H PRN PRN PRN Reason: Non-cardiac pain (mod-severe) Last Admin: 11/25/17 04:42 Dose: 650 mg Hydrocodone Bitart/Acetaminophen ([place] 5mg-325mg) 1 - 2 tablet PO Q6H PRN PRN PRN Reason: Moderate-severe pain Al Hydroxide/Mg Hydroxide (Mylanta Ii) 30 ml PO Q6H PRN PRN PRN Reason: Gastric burning Albuterol Sulfate (Ventolin Aerosols) 2.5 mg INHALATION Q2H PRN PRN PRN Reason: dyspnea, wheezing Albuterol/Ipratropium (Duoneb) 3 ml INHALATION Q6HWA.RT [facility] Last Admin: 11/25/17 07:14 Dose: 3 ml Amitriptyline HCl (Elavil) 100 mg PO QHS RHETT Last Admin: 11/24/17 20:47 Dose: 100 mg Atorvastatin Calcium (Lipitor) 10 mg PO QHS RHETT Last Admin: 09/10/18 20:47 Dose: 10 mg Carvedilol (Coreg) 3.125 mg PO BID [facility] Last Admin: 11/24/17 20:47 Dose: 3.125 mg Citalopram Hydrobromide (Celexa) 20 mg PO DAILY [facility] Clopidogrel Bisulfate (Plavix) 75 mg PO DAILY [facility] Famotidine (Pepcid) 20 mg PO BID [facility] Last Admin: 11/24/17 20:47 Dose: 20 mg Hydralazine HCl (Apresoline Iv) 10 mg IV Q4H PRN PRN PRN Reason: SBP > 160 Magnesium Hydroxide (Milk Of Magnesia) 30 ml PO DAILY PRN PRN PRN Reason: Constipation Morphine Sulfate () 1 - 2 mg IV Q4H PRN PRN PRN Reason: PAIN Ondansetron HCl (Zofran) 4 mg IV Q8H PRN PRN PRN Reason: NAUSEA Promethazine HCl (Phenergan) 12.5 mg IV Q6H PRN PRN PRN Reason: NAUSEA/VOMITING Sodium Chloride () 5 - 30 ml IV UD PRN PRN Reason: SALINE FLUSH Medical Necessity - Tobacco Use Smoking Status: Current some day smoker Tobacco Use: Cigarettes Assessment/Plan All Active Problems Fall (Acute) Concussion (Acute) SDH (subdural hematoma) (Acute) Debility (Acute) Right arm pain (Acute) Abnormal ECG (Acute) Patient is an 82-year-old lady with multiple comorbidities including COPD, previous CVA who presented following a fall. On further questioning patient admitted to losing her balance and falling into objects 1. Acute mechanical fall with head laceration: Patient admitted to a regular nursing floor requested for PT OT eval and social service worker to assist with discharge planning 2. Ataxia inpatient history of previous CVA MRI was ordered to rule out acute stroke 3. Chronic systolic heart failure with an ejection fraction of 35% 4. COPD currently not in exacerbation 5. Hypertension-blood pressure controlled, home medications continued with dose adjustment as needed 6. Dyslipidemia-patient is on statin therapy, continued at home dose 7. Degenerative joint disease 8. Depression with anxiety patient is on Celexa 9. Tobacco dependence counseled on cessation, offered nicotine patch for tobacco cravings 10. DVT prophylaxis SCDs for now Active Medications Acetaminophen (Tylenol) 650 mg PO Q6H PRN PRN PRN Reason: Non-cardiac pain (mod-severe) Last Admin: 11/25/17 04:42 Dose: 650 mg Hydrocodone Bitart/Acetaminophen ([place] 5mg-325mg) 1 - 2 tablet PO Q6H PRN PRN PRN Reason: Moderate-severe pain Al Hydroxide/Mg Hydroxide (Mylanta Ii) 30 ml PO Q6H PRN PRN PRN Reason: Gastric burning Albuterol Sulfate (Ventolin Aerosols) 2.5 mg INHALATION Q2H PRN PRN PRN Reason: dyspnea, wheezing Albuterol/Ipratropium (Duoneb) 3 ml INHALATION Q6HWA.RT [facility] Last Admin: 11/25/17 07:14 Dose: 3 ml Amitriptyline HCl (Elavil) 100 mg PO QHS [facility] Last Admin: 11/24/17 20:47 Dose: 100 mg Atorvastatin Calcium (Lipitor) 10 mg PO QHS [facility] Last Admin: 11/24/17 20:47 Dose: 10 mg Carvedilol (Coreg) 3.125 mg PO BID [facility] Last Admin: 11/24/17 20:47 Dose: 3.125 mg Citalopram Hydrobromide (Celexa) 20 mg PO DAILY [facility] Clopidogrel Bisulfate (Plavix) 75 mg PO DAILY [facility] Famotidine (Pepcid) 20 mg PO BID [facility] Last Admin: 11/24/17 20:47 Dose: 20 mg Hydralazine HCl (Apresoline Iv) 10 mg IV Q4H PRN PRN PRN Reason: SBP > 160 Magnesium Hydroxide (Milk Of Magnesia) 30 ml PO DAILY PRN PRN PRN Reason: Constipation Morphine Sulfate () 1 - 2 mg IV Q4H PRN PRN PRN Reason: PAIN Ondansetron HCl (Zofran) 4 mg IV Q8H PRN PRN PRN Reason: NAUSEA Promethazine HCl (Phenergan) 12.5 mg IV Q6H PRN PRN PRN Reason: NAUSEA/VOMITING Sodium Chloride () 5 - 30 ml IV UD PRN PRN Reason: SALINE FLUSH Clinical Impression(s) from Imaging Studies Brain CT 11/24/17 14:46 IMPRESSION: Chronic involutional changes of the brain. Scalp hematoma overlying the left frontal bone. Electronically Signed: Francisco Hairston MD at 15:49 EDT Tel [phone], Service support , Hip/Pelvis X-Ray 11/24/17 14:47 IMPRESSION: Mild degree of degenerative changes of the left hip. No fracture or dislocation is seen. Status post laminectomy and fusion at the L4-L5 level. Electronically Signed: Francisco Hairston MD at 16:04 EDT Tel [phone], Service support , Cervical Spine CT 11/24/17 14:50 IMPRESSION: Multilevel degenerative changes, as described above. No acute abnormality is seen. Electronically Signed: Francisco Hairston MD at 15:52 EDT Tel [phone], Service support , Lumbar Spine X-Ray 11/24/17 14:51 IMPRESSION: Degenerative changes of the spine, as detailed above. Prior laminectomy at the L4-L5 level with interpedicular screw fixation. Grade 2 anterior listhesis of L4 on L5. Electronically Signed: Francisco Hairston MD at 16:04 EDT Tel [phone], Service support , Elbow X-Ray 11/24/17 15:20 IMPRESSION: Posterior soft tissue laceration. Electronically Signed: Francisco Hairston MD at 15:57 EDT Tel [phone], Service support , Code Visit OBSV E&M: 60265 Observ/hosp same date L3
--- NOTE | 2017-11-25 09:35 | NURSING ---
wound photo: left lateral elbow
--- NOTE | 2017-11-25 09:35 | NURSING ---
wound photo: left lateral forehead
[2017-11-25] MEDS: Carvedilol 3.125 MG TABLET PO ×2 (09:57→21:29)
[2017-11-25] MEDS: Citalopram 20 MG Tablet PO (09:57)
[2017-11-25] MEDS: Famotidine 20 MG Tablet PO ×2 (09:57→21:29)
[2017-11-25] MEDS: hydrALAZINE 10 MG Tablet PO (09:57)
[2017-11-25] MEDS: Clopidogrel Bisulfate 75 MG Tablet PO (10:00)
--- NOTE | 2017-11-25 10:06 | CASEMGMT ---
Addendum entered by Cintia Phillips 11/25/17 12:15: CHERYLE spoke with Neeta with [facility] stating that if MRI shows Stroke and [employer] approves pt then pt could come to [facility]. Neeta states that she will await results from MRI. SW spoke with Jovita in TCU who states she won't have a bed till Friday if pt wants TCU. SW will continue to follow along to assist with discharge planning. Original Note: Social Work Assessment Referral Date: 11/25/2017 Date of Assessment: 11/25/2017 Reason for consult: Possible [facility] vs. SNF Informant: Personal Status SW met with pt to complete initial assessment. SW introduced self and role at [facility]. Pt is alert and orientated x3 but appears to have some confusion when talking to this worker. Pt states that she lives alone in a one story home with not that many steps. DME include nebulizer. Pt denied additional DME at home. Pt states that she was previously independent with ADLs. Pt states that she has three sons but only two of them live in [place]. Pt is unable to name additional family members. Per facesheet pt has a brother Connor listed as Next of Kin. CHERYLE educated pt on [facility]. SNF, Home with [facility], Home with Outpatient therapy. CHERYLE informed pt that once PT/OT evaluates pt then this worker will meet with pt again to determine discharge needs. Physician had mentioned to this worker that pt may be a good candidate for [facility]. SW made placed a call to referral line and spoke with Jovita and provided referral for [facility]. Substance Abuse Hx: Pt denied Mental Health Hx: Pt denied. Per H+P, pt has history of anxiety and depression. SW to continue to follow along to assist with discharge planning. Plan: TBD Cintia Phillips ART LIBRARIAN, STAMPING DIE [employer]KER BENCH
[2017-11-25] MEDS: Haloperidol Lactate 5 MG/ML Vial 2 MG IM (16:10)
--- NOTE | 2017-11-25 16:20 | CASEMGMT ---
Social Work Note Pt gave this worker permission to talk to her brother Connor and daughter Aleta. CHERYLE placed a call to Connor who is listed as contact for pt. Connor states that he feels like pt would benefit from short term rehab at SNF. Connor states that pt has been at [facility] in the past. Connor states that pt may have some baseline confusion but that her concussion may have increased her confusion. Connor states that he will have pt's daughter Aleta call this worker. CHERYLE received call from pt's daughter Aleta. Aleta agrees that pt may benefit from short term stay at SNF. CHERYLE explained that pt is doing well with PT (walking 150ft contact guard) and pt may get denied SNF placement but that this worker can try to get pt placed. Aleta states understanding. CHERYLE explained TCU and [facility]. Aleta agreeable to referrals being made to RU and TCU. CHERYLE placed a call to Jovita in TCU and left her a message to keep pt on list for TCU. Per previous notes, Neeta with [facility] is waiting for MRI results and pt is not approved for [facility] pt could go to TCU if approved by insurance. Aleta provided direct number [phone]. Plan: RU vs. TCU Cintia Phillips SHORT ORDER FRY COOK, BRIM STRETCHING MACHINE OPERATOR
[2017-11-25] MEDS: Atorvastatin Calcium 10 MG Tablet PO (21:29)
[2017-11-25] MEDS: Amitriptyline 100 MG Tablet PO (21:29)
[2017-11-26] VITALS (13 sets, daily range): BP systolic 113–173; BP diastolic 70–97; PULSE 67–97; RESP 16–18; TEMP 36.6–37.3; O2SAT 96–100
[2017-11-26] MEDS: hydrALAZINE 10 MG Tablet PO (05:21)
[2017-11-26 06:18] LABS: Hematocrit 35.3 % (37-47); Hemoglobin 11.1 g/dl (12.0-15.0); Mean Corp Hgb Conc 31.4 g/gl (32-36); Mean Corpuscular Hgb 27.7 pg (27.0-32.0); Mean Platelet Vol. 10.2 fl (6.2-12.0); Platelet Count 220 K/mm3 (150-450); RBC Distribution Width CV 13.6 % (11.6-14.6); RBC Distribution Width SD 43.3 fl (35.1-43.9); Red Blood Count 4.01 M/mm3 (4.2-5.4)
[2017-11-26 06:21] LABS: Scan Indicated on CBC? Y/N NO
[2017-11-26 06:23] LABS: Anion Gap 9 (5-15); BUN 10 mg/dL (7-18); BUN/Creat Ratio 12.2 RATIO (10-20); Calcium,Total 8.5 mg/dL (8.5-10.1); Chloride 110 mmol/L (98-107); Creatinine, Serum 0.82 mg/dL (0.55-1.02); EST Glomerular Filtration Rate 71 mL/min (>60); Est Glom Filt Rate - Afr Amer 86 mL/min (>60); Estimated Creatinine Clearance 56.93 ml/min; Glucose 86 mg/dL (74-106); Magnesium 2.3 mg/dL (1.6-2.6); Potassium 3.9 mmol/L (3.5-5.1); Sodium Level 144 mmol/L (136-145)
[2017-11-26] MEDS: Ipratropium/Albuterol Sulfate 3 ML AMPUL.NEB INHALATION ×2 (06:43→13:33)
--- NOTE | 2017-11-26 08:27 | PCM.PN.HOSP ---
Patient Problems: Active and Suspected Problems Fall (Acute) Concussion (Acute) Subjective: Did experience an episode of acute delirium during the evening of 11/25/2017 resulting in administration of 2 mg of IM Haldol patient had to have a sitter by his side throughout the whole evening. Seen this a.m. remains delirious talking about her mother visiting her Objective: GENERAL: Frail looking HEENT: Scalp laceration under~ right frontal region of the head as well as left periorbital edema NECK; supple, normal thyroid, no distended JVD. CHEST: Diminished to auscultation bilaterally, HEART: Regular S1-S2 ABDOMEN: soft, non-tender, normoactive bowel sounds, RECTAL: deferred EXTREMITIES: No edema, no clubbing, no cyanosis. MECHANIC DRIVER: Awake; no lateralizing signs. SKIN: As described above Vitals/I&O's: Vital Signs Temp Pulse Resp BP Pulse Ox 98.0 F 72 18 173/97 H 96 11/26/17 05:15 11/26/17 06:43 11/26/17 06:43 11/26/17 05:15 11/26/17 06:43 Oxygen Delivery Method Room Air Weight: 65.9 kg Body Mass Index (BMI) 21.4 Intake and Output for Last 24 Hours 11/24/17 11/25/17 11/26/17 23:59 23:59 23:59 Intake Total 696 / 696 100 / 100 Balance 696 / 696 100 / 100 Laboratory Results 11/26/17 05:46: WBC 6.0, RBC 4.01 L, Hgb 11.1 L, Hct 35.3 L, MCV 88.0, MCH 27.7, MCHC 31.4 L, RDW 13.6, RDW Differential 43.3, Plt Count 220, MPV 10.2 11/26/17 05:46: Sodium 144, Potassium 3.9, Chloride 110 H, Carbon Dioxide 25.0, Anion Gap 9, BUN 10, Creatinine 0.82, Estim Creat Clear Calc 56.93, Est GFR (MDRD) Af Amer 86, Est GFR (MDRD) Non-Af 71, BUN/Creatinine Ratio 12.2, Glucose 86, Calcium 8.5, Magnesium 2.3 Current Medications Acetaminophen (Tylenol) 650 mg PO Q6H PRN PRN PRN Reason: Non-cardiac pain (mod-severe) Last Admin: 11/25/17 04:42 Dose: 650 mg Hydrocodone Bitart/Acetaminophen (Gregory 5mg-325mg) 1 - 2 tablet PO Q6H PRN PRN PRN Reason: Moderate-severe pain Al Hydroxide/Mg Hydroxide (Mylanta Ii) 30 ml PO Q6H PRN PRN PRN Reason: Gastric burning Albuterol Sulfate (Ventolin Aerosols) 2.5 mg INHALATION Q2H PRN PRN PRN Reason: dyspnea, wheezing Albuterol/Ipratropium (Duoneb) 3 ml INHALATION Q6HWA.RT [facility] Last Admin: 11/26/17 06:43 Dose: 3 ml Amitriptyline HCl (Elavil) 100 mg PO QHS [facility] Last Admin: 11/25/17 21:29 Dose: 100 mg Atorvastatin Calcium (Lipitor) 10 mg PO QHS [facility] Last Admin: 11/25/17 21:29 Dose: 10 mg Carvedilol (Coreg) 3.125 mg PO BID [facility] Last Admin: 11/25/17 21:29 Dose: 3.125 mg Citalopram Hydrobromide (Celexa) 20 mg PO DAILY [facility] Last Admin: 11/25/17 09:57 Dose: 20 mg Clopidogrel Bisulfate (Plavix) 75 mg PO DAILY [facility] Last Admin: 11/25/17 10:00 Dose: 75 mg Famotidine (Pepcid) 20 mg PO BID [facility] Last Admin: 11/25/17 21:29 Dose: 20 mg Hydralazine HCl (Apresoline) 10 mg PO 4X/DAY PRN PRN Reason: SBP >160 Last Admin: 11/26/17 05:21 Dose: 10 mg Magnesium Hydroxide (Milk Of Magnesia) 30 ml PO DAILY PRN PRN PRN Reason: Constipation Morphine Sulfate () 1 - 2 mg IV Q4H PRN PRN PRN Reason: PAIN Ondansetron HCl (Zofran) 4 mg IV Q8H PRN PRN PRN Reason: NAUSEA Promethazine HCl (Phenergan) 12.5 mg IV Q6H PRN PRN PRN Reason: NAUSEA/VOMITING Sodium Chloride () 5 - 30 ml IV UD PRN PRN Reason: SALINE FLUSH Medical Necessity - Tobacco Use Smoking Status: Current some day smoker Tobacco Use: Cigarettes Assessment/Plan All Active Problems Fall (Acute) Concussion (Acute) SDH (subdural hematoma) (Acute) Debility (Acute) Right arm pain (Acute) Abnormal ECG (Acute) Patient is an 82-year-old lady with multiple comorbidities including COPD, previous CVA who presented following a fall. On further questioning patient admitted to losing her balance and falling into objects 1. Acute mechanical fall with head laceration: Patient admitted to a regular nursing floor requested for PT OT eval and social work coordinator to assist with discharge planning 2. Ataxia inpatient history of previous CVA MRI was ordered to rule out acute stroke 3. Chronic systolic heart failure with an ejection fraction of 35% 4. COPD currently not in exacerbation 5. Hypertension-blood pressure controlled, home medications continued with dose adjustment as needed 6. Dyslipidemia-patient is on statin therapy, continued at home dose 7. Degenerative joint disease 8. Depression with anxiety patient is on Celexa 9. Tobacco dependence counseled on cessation, offered nicotine patch for tobacco cravings 10. DVT prophylaxis SCDs for now 11. Acute delirium do suspect some underlying dementia with behavioral agitation patient did receive Haldol for agitation Active Medications Acetaminophen (Tylenol) 650 mg PO Q6H PRN PRN PRN Reason: Non-cardiac pain (mod-severe) Last Admin: 11/25/17 04:42 Dose: 650 mg Hydrocodone Bitart/Acetaminophen (Gregory 5mg-325mg) 1 - 2 tablet PO Q6H PRN PRN PRN Reason: Moderate-severe pain Al Hydroxide/Mg Hydroxide (Mylanta Ii) 30 ml PO Q6H PRN PRN PRN Reason: Gastric burning Albuterol Sulfate (Ventolin Aerosols) 2.5 mg INHALATION Q2H PRN PRN PRN Reason: dyspnea, wheezing Albuterol/Ipratropium (Duoneb) 3 ml INHALATION Q6HWA.RT [facility] Last Admin: 11/25/17 07:14 Dose: 3 ml Amitriptyline HCl (Elavil) 100 mg PO QHS [facility] Last Admin: 11/24/17 20:47 Dose: 100 mg Atorvastatin Calcium (Lipitor) 10 mg PO QHS [facility] Last Admin: 11/24/17 20:47 Dose: 10 mg Carvedilol (Coreg) 3.125 mg PO BID [facility] Last Admin: 11/24/17 20:47 Dose: 3.125 mg Citalopram Hydrobromide (Celexa) 20 mg PO DAILY [facility] Clopidogrel Bisulfate (Plavix) 75 mg PO DAILY [facility] Famotidine (Pepcid) 20 mg PO BID [facility] Last Admin: 11/24/17 20:47 Dose: 20 mg Hydralazine HCl (Apresoline Iv) 10 mg IV Q4H PRN PRN PRN Reason: SBP > 160 Magnesium Hydroxide (Milk Of Magnesia) 30 ml PO DAILY PRN PRN PRN Reason: Constipation Morphine Sulfate () 1 - 2 mg IV Q4H PRN PRN PRN Reason: PAIN Ondansetron HCl (Zofran) 4 mg IV Q8H PRN PRN PRN Reason: NAUSEA Promethazine HCl (Phenergan) 12.5 mg IV Q6H PRN PRN PRN Reason: NAUSEA/VOMITING Sodium Chloride () 5 - 30 ml IV UD PRN PRN Reason: SALINE FLUSH Clinical Impression(s) from Imaging Studies Brain CT 11/24/17 14:46 IMPRESSION: Chronic involutional changes of the brain. Scalp hematoma overlying the left frontal bone. Electronically Signed: Francisco Hairston MD at 15:49 EDT Tel [phone], Service support , Hip/Pelvis X-Ray 11/24/17 14:47 IMPRESSION: Mild degree of degenerative changes of the left hip. No fracture or dislocation is seen. Status post laminectomy and fusion at the L4-L5 level. Electronically Signed: Francisco Hairston MD at 16:04 EDT Tel [phone], Service support , Cervical Spine CT 11/24/17 14:50 IMPRESSION: Multilevel degenerative changes, as described above. No acute abnormality is seen. Electronically Signed: Francisco Hairston MD at 15:52 EDT Tel [phone], Service support , Lumbar Spine X-Ray 11/24/17 14:51 IMPRESSION: Degenerative changes of the spine, as detailed above. Prior laminectomy at the L4-L5 level with interpedicular screw fixation. Grade 2 anterior listhesis of L4 on L5. Electronically Signed: Francisco Hairston MD at 16:04 EDT Tel [phone], Service support , Elbow X-Ray 11/24/17 15:20 IMPRESSION: Posterior soft tissue laceration. Electronically Signed: Francisco Hairston MD at 15:57 EDT Tel [phone], Service support , Code Visit OBSV E&M: 83616 Observ/hosp same date L3
--- NOTE | 2017-11-26 09:01 | CASEMGMT ---
Social Work Note SW spoke with Julianne Modi, director social welfare who talked with Jovita in TCU and Neeta with [facility] who feel it would be better to try to get pt to TCU vs [facility]. TCU to submit for pre-cert. Plan: TCU pending pre-cert Cintia Phillips COMMERCIAL PROJECT MANAGER, MULLING MACHINE OPERATOR
--- NOTE | 2017-11-26 09:35 | CASEMGMT ---
RN CM attempted to complete KULKARNI at this time. Patient is only oriented to self and unable to complete. RN CM will attempt at a later time when family available.
[2017-11-26] MEDS: Citalopram 20 MG Tablet PO (09:47)
[2017-11-26] MEDS: Carvedilol 3.125 MG TABLET PO ×2 (09:47→20:15)
[2017-11-26] MEDS: Famotidine 20 MG Tablet PO ×2 (09:47→20:17)
[2017-11-26] MEDS: Clopidogrel Bisulfate 75 MG Tablet PO (09:47)
--- NOTE | 2017-11-26 15:12 | CASEMGMT ---
Social Work Note SW spoke with Jovita in TCU and informed her that pt had a sitter last night but the last time pt had a sitter was at midnight and that the staff is trying to not give pt Haldol as TCU can't take pt with Haldol. CHERYLE informed Jovita to continue to wait for pre-cert from [facility] to see if they will approve pt to go to TCU. If pt's insurance deny placement then alternative options will be looked at for pt. Plan: TCU pending pre-cert Cintia Phillips BUILDING PERFORMANCE SPECIALIST, UMBRELLA FINISHER
[2017-11-26] MEDS: Magnesium Hydroxide 30 ML UDC PO (15:33)
[2017-11-26] MEDS: Haloperidol Lactate 5 MG/ML Vial 2 MG IM ×2 (16:00→18:27)
[2017-11-26] MEDS: Atorvastatin Calcium 10 MG Tablet PO (20:16)
[2017-11-26] MEDS: Amitriptyline 100 MG Tablet PO (20:16)
--- NOTE | 2017-11-27 00:13 | NURSING ---
Pt. continuing to attempt to get out of bed, restless. This nurse helped patient to Lanette chair and brought out to sit at nurses station with staff. Aggitated and keeps trying to take tray table off Lanette Chair. This nurse talked to hospitalist and received order for 2mg Haldol x1.
[2017-11-27] MEDS: Haloperidol Lactate 5 MG/ML Vial 2 MG IM (00:39)
[2017-11-27 01:11] VITALS: PULSE 93; RESP 20
[2017-11-27] MEDS: Albuterol 2.5 MG/3 ML VIAL.NEB. INHALATION (01:12)
--- NOTE | 2017-11-27 01:32 | NURSING ---
this nurse gave pt. SHANIKA Shah for aggitation and assisted back to bed. Patient continues to try to get out of bed. This nurse and CHAIRMAN AND CEO assisted patient to bathroom then back to Lanette chair. Patient is currently resting comfortably in Lanette chair at nurses station.
[2017-11-27 02:00] VITALS: BP 138/90; PULSE 93; PULSE 94; RESP 16; TEMP 36.6; O2SAT 95
[2017-11-27 06:26] LABS: Anion Gap 9 (5-15); BUN 13 mg/dL (7-18); BUN/Creat Ratio 13.3 RATIO (10-20); Calcium,Total 8.6 mg/dL (8.5-10.1); Chloride 108 mmol/L (98-107); Creatinine, Serum 0.98 mg/dL (0.55-1.02); EST Glomerular Filtration Rate 58 mL/min (>60); Est Glom Filt Rate - Afr Amer 71 mL/min (>60); Estimated Creatinine Clearance 47.63 ml/min; Glucose 103 mg/dL (74-106); Hematocrit 36.8 % (37-47); Hemoglobin 11.6 g/dl (12.0-15.0); Mean Corp Hgb Conc 31.5 g/gl (32-36); Mean Corpuscular Hgb 27.5 pg (27.0-32.0); Mean Corpuscular Volume 87.2 fL (81-99); Mean Platelet Vol. 10.3 fl (6.2-12.0); Platelet Count 250 K/mm3 (150-450); Potassium 3.9 mmol/L (3.5-5.1); RBC Distribution Width CV 13.7 % (11.6-14.6); RBC Distribution Width SD 42.8 fl (35.1-43.9); Red Blood Count 4.22 M/mm3 (4.2-5.4); Sodium Level 142 mmol/L (136-145); White Blood Count 7.1 K/mm3 (4.4-11.0)
[2017-11-27 06:29] LABS: Scan Indicated on CBC? Y/N NO
[2017-11-27 07:01] VITALS: PULSE 94
--- NOTE | 2017-11-27 07:47 | NURSING ---
pt resting comfortably in bed, eyes closed, respirations even and unlabored. Pt did not sleep last night so will let pt rest and will do vital signs after she awakens.
[2017-11-27 08:51] VITALS: BP 127/75; PULSE 98; RESP 18; TEMP 37.1; O2SAT 93
[2017-11-27] MEDS: Citalopram 20 MG Tablet PO (09:06)
[2017-11-27] MEDS: Clopidogrel Bisulfate 75 MG Tablet PO (09:06)
[2017-11-27] MEDS: Famotidine 20 MG Tablet PO ×2 (09:06→23:18)
[2017-11-27] MEDS: Carvedilol 3.125 MG TABLET PO ×2 (09:06→23:17)
--- NOTE | 2017-11-27 09:25 | PCM.PN.HOSP ---
Patient Problems: Active and Suspected Problems Fall (Acute) Concussion (Acute) Subjective: Patient seen continues to remain delirious did receive 3 doses of Haldol over the past 12 hours. As part of evaluation for her acute delirium ordered urinalysis. Patient currently seen in the Lanette chair in the hallway Objective: GENERAL: Frail looking HEENT: Scalp laceration under~ right frontal region of the head as well as left periorbital edema NECK; supple, normal thyroid, no distended JVD. CHEST: Diminished to auscultation bilaterally, HEART: Regular S1-S2 ABDOMEN: soft, non-tender, normoactive bowel sounds, RECTAL: deferred EXTREMITIES: No edema, no clubbing, no cyanosis. DUST HANDLER: Awake; no lateralizing signs. SKIN: As described above Vitals/I&O's: Vital Signs Temp Pulse Resp BP Pulse Ox 98.7 F 98 18 127/75 H 93 11/27/17 08:51 11/27/17 08:51 11/27/17 08:51 11/27/17 08:51 11/27/17 08:51 Oxygen Delivery Method Room Air Weight: 65.9 kg Body Mass Index (BMI) 21.4 Intake and Output for Last 24 Hours 11/25/17 11/26/17 11/27/17 23:59 23:59 23:59 Intake Total 696 / 696 100 / 100 100 / 100 Balance 696 / 696 100 / 100 100 / 100 Laboratory Results 11/27/17 05:40: WBC 7.1, RBC 4.22, Hgb 11.6 L, Hct 36.8 L, MCV 87.2, MCH 27.5, MCHC 31.5 L, RDW 13.7, RDW Differential 42.8, Plt Count 250, MPV 10.3 11/27/17 05:40: Sodium 142, Potassium 3.9, Chloride 108 H, Carbon Dioxide 25.0, Anion Gap 9, BUN 13, Creatinine 0.98, Estim Creat Clear Calc 47.63, Est GFR (MDRD) Af Amer 71, Est GFR (MDRD) Non-Af 58 L, BUN/Creatinine Ratio 13.3, Glucose 103, Calcium 8.6 Current Medications Acetaminophen (Tylenol) 650 mg PO Q6H PRN PRN PRN Reason: Non-cardiac pain (mod-severe) Last Admin: 11/25/17 04:42 Dose: 650 mg Hydrocodone Bitart/Acetaminophen ([place] 5mg-325mg) 1 - 2 tablet PO Q6H PRN PRN PRN Reason: Moderate-severe pain Al Hydroxide/Mg Hydroxide (Mylanta Ii) 30 ml PO Q6H PRN PRN PRN Reason: Gastric burning Albuterol Sulfate (Ventolin Aerosols) 2.5 mg INHALATION Q2H PRN PRN PRN Reason: dyspnea, wheezing Last Admin: 11/27/17 01:12 Dose: 2.5 mg Albuterol/Ipratropium (Duoneb) 3 ml INHALATION Q6HWA.RT [facility] Last Admin: 11/27/17 06:40 Dose: Not Given Amitriptyline HCl (Elavil) 100 mg PO QHS [facility] Last Admin: 11/26/17 20:16 Dose: 100 mg Atorvastatin Calcium (Lipitor) 10 mg PO QHS [facility] Last Admin: 11/26/17 20:16 Dose: 10 mg Carvedilol (Coreg) 3.125 mg PO BID [facility] Last Admin: 11/27/17 09:06 Dose: 3.125 mg Citalopram Hydrobromide (Celexa) 20 mg PO DAILY [facility] Last Admin: 11/27/17 09:06 Dose: 20 mg Clopidogrel Bisulfate (Plavix) 75 mg PO DAILY [facility] Last Admin: 11/27/17 09:06 Dose: 75 mg Famotidine (Pepcid) 20 mg PO BID [facility] Last Admin: 11/27/17 09:06 Dose: 20 mg Hydralazine HCl (Apresoline) 10 mg PO 4X/DAY PRN PRN Reason: SBP >160 Last Admin: 11/26/17 05:21 Dose: 10 mg Magnesium Hydroxide (Milk Of Magnesia) 30 ml PO DAILY PRN PRN PRN Reason: Constipation Last Admin: 11/26/17 15:33 Dose: 30 ml Morphine Sulfate () 1 - 2 mg IV Q4H PRN PRN PRN Reason: PAIN Ondansetron HCl (Zofran) 4 mg IV Q8H PRN PRN PRN Reason: NAUSEA Promethazine HCl (Phenergan) 12.5 mg IV Q6H PRN PRN PRN Reason: NAUSEA/VOMITING Sodium Chloride () 5 - 30 ml IV UD PRN PRN Reason: SALINE FLUSH Medical Necessity - Tobacco Use Smoking Status: Current some day smoker Tobacco Use: Cigarettes Assessment/Plan All Active Problems Fall (Acute) Concussion (Acute) SDH (subdural hematoma) (Acute) Debility (Acute) Right arm pain (Acute) Abnormal ECG (Acute) Patient is an 82-year-old lady with multiple comorbidities including COPD, previous CVA who presented following a fall. On further questioning patient admitted to losing her balance and falling into objects 1. Acute mechanical fall with head laceration: Patient admitted to a regular nursing floor requested for PT OT eval and high school social studies teacher to assist with discharge planning 2. Ataxia inpatient history of previous CVA MRI was ordered to rule out acute stroke 3. Chronic systolic heart failure with an ejection fraction of 35% 4. COPD currently not in exacerbation 5. Hypertension-blood pressure controlled, home medications continued with dose adjustment as needed 6. Dyslipidemia-patient is on statin therapy, continued at home dose 7. Degenerative joint disease 8. Depression with anxiety patient is on Celexa 9. Tobacco dependence counseled on cessation, offered nicotine patch for tobacco cravings 10. DVT prophylaxis SCDs for now 11. Acute delirium do suspect some underlying dementia with behavioral agitation patient did receive Haldol for agitation. Patient delirium remains and subsequently ordered urinalysis to rule out an infectious etiology Active Medications Acetaminophen (Tylenol) 650 mg PO Q6H PRN PRN PRN Reason: Non-cardiac pain (mod-severe) Last Admin: 11/25/17 04:42 Dose: 650 mg Hydrocodone Bitart/Acetaminophen ([place] 5mg-325mg) 1 - 2 tablet PO Q6H PRN PRN PRN Reason: Moderate-severe pain Al Hydroxide/Mg Hydroxide (Mylanta Ii) 30 ml PO Q6H PRN PRN PRN Reason: Gastric burning Albuterol Sulfate (Ventolin Aerosols) 2.5 mg INHALATION Q2H PRN PRN PRN Reason: dyspnea, wheezing Albuterol/Ipratropium (Duoneb) 3 ml INHALATION Q6HWA.RT [facility] Last Admin: 11/25/17 07:14 Dose: 3 ml Amitriptyline HCl (Elavil) 100 mg PO QHS [facility] Last Admin: 11/24/17 20:47 Dose: 100 mg Atorvastatin Calcium (Lipitor) 10 mg PO QHS [facility] Last Admin: 11/24/17 20:47 Dose: 10 mg Carvedilol (Coreg) 3.125 mg PO BID [facility] Last Admin: 11/24/17 20:47 Dose: 3.125 mg Citalopram Hydrobromide (Celexa) 20 mg PO DAILY [facility] Clopidogrel Bisulfate (Plavix) 75 mg PO DAILY [facility] Famotidine (Pepcid) 20 mg PO BID [facility] Last Admin: 11/24/17 20:47 Dose: 20 mg Hydralazine HCl (Apresoline Iv) 10 mg IV Q4H PRN PRN PRN Reason: SBP > 160 Magnesium Hydroxide (Milk Of Magnesia) 30 ml PO DAILY PRN PRN PRN Reason: Constipation Morphine Sulfate () 1 - 2 mg IV Q4H PRN PRN PRN Reason: PAIN Ondansetron HCl (Zofran) 4 mg IV Q8H PRN PRN PRN Reason: NAUSEA Promethazine HCl (Phenergan) 12.5 mg IV Q6H PRN PRN PRN Reason: NAUSEA/VOMITING Sodium Chloride () 5 - 30 ml IV UD PRN PRN Reason: SALINE FLUSH Clinical Impression(s) from Imaging Studies Brain CT 11/24/17 14:46 IMPRESSION: Chronic involutional changes of the brain. Scalp hematoma overlying the left frontal bone. Electronically Signed: Francisco Hairston MD at 15:49 EDT Tel [phone], Service support , Hip/Pelvis X-Ray 11/24/17 14:47 IMPRESSION: Mild degree of degenerative changes of the left hip. No fracture or dislocation is seen. Status post laminectomy and fusion at the L4-L5 level. Electronically Signed: Francisco Hairston MD at 16:04 EDT Tel [phone], Service support , Cervical Spine CT 11/24/17 14:50 IMPRESSION: Multilevel degenerative changes, as described above. No acute abnormality is seen. Electronically Signed: Francisco Hairston MD at 15:52 EDT Tel [phone], Service support , Lumbar Spine X-Ray 11/24/17 14:51 IMPRESSION: Degenerative changes of the spine, as detailed above. Prior laminectomy at the L4-L5 level with interpedicular screw fixation. Grade 2 anterior listhesis of L4 on L5. Electronically Signed: Francisco Hairston MD at 16:04 EDT Tel [phone], Service support , Elbow X-Ray 11/24/17 15:20 IMPRESSION: Posterior soft tissue laceration. Electronically Signed: Francisco Hairston MD at 15:57 EDT Tel [phone], Service support , Code Visit Inpatient E&M: 71759 Subs Hosp L3
--- NOTE | 2017-11-27 09:29 | PN_ITS ---
Patient Problems: Active and Suspected Problems Fall (Acute) Concussion (Acute) Subjective: Patient seen continues to remain delirious did receive 3 doses of Haldol over the past 12 hours. As part of evaluation for her acute delirium ordered urinalysis. Patient currently seen in the Lanette chair in the hallway Objective: GENERAL: Frail looking HEENT: Scalp laceration under~ right frontal region of the head as well as left periorbital edema NECK; supple, normal thyroid, no distended JVD. CHEST: Diminished to auscultation bilaterally, HEART: Regular S1-S2 ABDOMEN: soft, non-tender, normoactive bowel sounds, RECTAL: deferred EXTREMITIES: No edema, no clubbing, no cyanosis. 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 SKIN: As described above Vitals/I&O's: Vital Signs Temp Pulse Resp BP Pulse Ox 98.7 F 98 18 127/75 H 93 11/27/17 08:51 11/27/17 08:51 11/27/17 08:51 11/27/17 08:51 11/27/17 08:51 Oxygen Delivery Method Room Air Weight: 65.9 kg Body Mass Index (BMI) 21.4 Intake and Output for Last 24 Hours 11/25/17 11/26/17 11/27/17 23:59 23:59 23:59 Intake Total 696 / 696 100 / 100 100 / 100 Balance 696 / 696 100 / 100 100 / 100 Laboratory Results 11/27/17 05:40: WBC 7.1, RBC 4.22, Hgb 11.6 L, Hct 36.8 L, MCV 87.2, MCH 27.5, MCHC 31.5 L, RDW 13.7, RDW Differential 42.8, Plt Count 250, MPV 10.3 11/27/17 05:40: Sodium 142, Potassium 3.9, Chloride 108 H, Carbon Dioxide 25.0, Anion Gap 9, BUN 13, Creatinine 0.98, Estim Creat Clear Calc 47.63, Est GFR ( MDRD) Af Amer 71, Est GFR (MDRD) Non-Af 58 L, BUN/Creatinine Ratio 13.3, Glucose 103, Calcium 8.6 Current Medications Acetaminophen (Tylenol) 650 mg PO Q6H PRN PRN PRN Reason: Non-cardiac pain (mod-severe) Last Admin: 11/25/17 04:42 Dose: 650 mg Hydrocodone Bitart/Acetaminophen ([place] 5mg-325mg) 1 - 2 tablet PO Q6H PRN PRN PRN Reason: Moderate-severe pain Al Hydroxide/Mg Hydroxide (Mylanta Ii) 30 ml PO Q6H PRN PRN PRN Reason: Gastric burning Albuterol Sulfate (Ventolin Aerosols) 2.5 mg INHALATION Q2H PRN PRN PRN Reason: dyspnea, wheezing Last Admin: 11/27/17 01:12 Dose: 2.5 mg Albuterol/Ipratropium (Duoneb) 3 ml INHALATION Q6HWA.RT [facility] Last Admin: 11/27/17 06:40 Dose: Not Given Amitriptyline HCl (Elavil) 100 mg PO QHS [facility] Last Admin: 11/26/17 20:16 Dose: 100 mg Atorvastatin Calcium (Lipitor) 10 mg PO QHS [facility] Last Admin: 11/26/17 20:16 Dose: 10 mg Carvedilol (Coreg) 3.125 mg PO BID [facility] Last Admin: 11/27/17 09:06 Dose: 3.125 mg Citalopram Hydrobromide (Celexa) 20 mg PO DAILY [facility] Last Admin: 11/27/17 09:06 Dose: 20 mg Clopidogrel Bisulfate (Plavix) 75 mg PO DAILY [facility] Last Admin: 11/27/17 09:06 Dose: 75 mg Famotidine (Pepcid) 20 mg PO BID [facility] Last Admin: 11/27/17 09:06 Dose: 20 mg Hydralazine HCl (Apresoline) 10 mg PO 4X/DAY PRN PRN Reason: SBP >160 Last Admin: 11/26/17 05:21 Dose: 10 mg Magnesium Hydroxide (Milk Of Magnesia) 30 ml PO DAILY PRN PRN PRN Reason: Constipation Last Admin: 11/26/17 15:33 Dose: 30 ml Morphine Sulfate () 1 - 2 mg IV Q4H PRN PRN PRN Reason: PAIN Ondansetron HCl (Zofran) 4 mg IV Q8H PRN PRN PRN Reason: NAUSEA Promethazine HCl (Phenergan) 12.5 mg IV Q6H PRN PRN PRN Reason: NAUSEA/VOMITING Sodium Chloride () 5 - 30 ml IV UD PRN PRN Reason: SALINE FLUSH Medical Necessity - Tobacco Use Smoking Status: Current some day smoker Tobacco Use: Cigarettes Assessment/Plan All Active Problems Fall (Acute) Concussion (Acute) SDH (subdural hematoma) (Acute) Debility (Acute) Right arm pain (Acute) Abnormal ECG (Acute) Patient is an 82-year-old lady with multiple comorbidities including COPD, previous CVA who presented following a fall. On further questioning patient admitted to losing her balance and falling into objects 1. Acute mechanical fall with head laceration: Patient admitted to a regular nursing floor requested for PT OT eval and social worker psychiatric to assist with discharge planning 2. Ataxia inpatient history of previous CVA MRI was ordered to rule out acute stroke 3. Chronic systolic heart failure with an ejection fraction of 35% 4. COPD currently not in exacerbation 5. Hypertension-blood pressure controlled, home medications continued with dose adjustment as needed 6. Dyslipidemia-patient is on statin therapy, continued at home dose 7. Degenerative joint disease 8. Depression with anxiety patient is on Celexa 9. Tobacco dependence counseled on cessation, offered nicotine patch for tobacco cravings 10. DVT prophylaxis SCDs for now 11. Acute delirium do suspect some underlying dementia with behavioral agitation patient did receive Haldol for agitation. Patient delirium remains and subsequently ordered urinalysis to rule out an infectious etiology Active Medications Acetaminophen (Tylenol) 650 mg PO Q6H PRN PRN PRN Reason: Non-cardiac pain (mod-severe) Last Admin: 11/25/17 04:42 Dose: 650 mg Hydrocodone Bitart/Acetaminophen ([place] 5mg-325mg) 1 - 2 tablet PO Q6H PRN PRN PRN Reason: Moderate-severe pain Al Hydroxide/Mg Hydroxide (Mylanta Ii) 30 ml PO Q6H PRN PRN PRN Reason: Gastric burning Albuterol Sulfate (Ventolin Aerosols) 2.5 mg INHALATION Q2H PRN PRN PRN Reason: dyspnea, wheezing Albuterol/Ipratropium (Duoneb) 3 ml INHALATION Q6HWA.RT [facility] Last Admin: 11/25/17 07:14 Dose: 3 ml Amitriptyline HCl (Elavil) 100 mg PO QHS [facility] Last Admin: 11/24/17 20:47 Dose: 100 mg Atorvastatin Calcium (Lipitor) 10 mg PO QHS [facility] Last Admin: 11/24/17 20:47 Dose: 10 mg Carvedilol (Coreg) 3.125 mg PO BID [facility] Last Admin: 11/24/17 20:47 Dose: 3.125 mg Citalopram Hydrobromide (Celexa) 20 mg PO DAILY [facility] Clopidogrel Bisulfate (Plavix) 75 mg PO DAILY [facility] Famotidine (Pepcid) 20 mg PO BID [facility] Last Admin: 11/24/17 20:47 Dose: 20 mg Hydralazine HCl (Apresoline Iv) 10 mg IV Q4H PRN PRN PRN Reason: SBP > 160 Magnesium Hydroxide (Milk Of Magnesia) 30 ml PO DAILY PRN PRN PRN Reason: Constipation Morphine Sulfate () 1 - 2 mg IV Q4H PRN PRN PRN Reason: PAIN Ondansetron HCl (Zofran) 4 mg IV Q8H PRN PRN PRN Reason: NAUSEA Promethazine HCl (Phenergan) 12.5 mg IV Q6H PRN PRN PRN Reason: NAUSEA/VOMITING Sodium Chloride () 5 - 30 ml IV UD PRN PRN Reason: SALINE FLUSH Clinical Impression(s) from Imaging Studies Brain CT 11/24/17 14:46 IMPRESSION: Chronic involutional changes of the brain. Scalp hematoma overlying the left frontal bone. Electronically Signed: Francisco Hairston MD at 15:49 EDT Tel [phone], Service support , Hip/Pelvis X-Ray 11/24/17 14:47 IMPRESSION: Mild degree of degenerative changes of the left hip. No fracture or dislocation is seen. Status post laminectomy and fusion at the L4-L5 level. Electronically Signed: Francisco Hairston MD at 16:04 EDT Tel [phone], Service support , Cervical Spine CT 11/24/17 14:50 IMPRESSION: Multilevel degenerative changes, as described above. No acute abnormality is seen. Electronically Signed: Francisco Hairston MD at 15:52 EDT Tel [phone], Service support , Lumbar Spine X-Ray 11/24/17 14:51 IMPRESSION: Degenerative changes of the spine, as detailed above. Prior laminectomy at the L4-L5 level with interpedicular screw fixation. Grade 2 anterior listhesis of L4 on L5. Electronically Signed: Francisco Hairston MD at 16:04 EDT Tel [phone], Service support , Elbow X-Ray 11/24/17 15:20 IMPRESSION: Posterior soft tissue laceration. Electronically Signed: Francisco Hairston MD at 15:57 EDT Tel [phone], Service support , Code Visit Inpatient E&M: 87685 Subs Hosp L3
--- NOTE | 2017-11-27 14:21 | CASEMGMT ---
Addendum entered by Destiny Gusman 11/27/17 16:39: Return call from pt dgt Aleta. She states she called pt bank and cannot obtain information as she has no legal rights. Bank stating only course of action is for pt to call bank and request account balance information. At this time Aleta states there is nothing else she can do to resolve this issue. CHERYLE will continue to follow. KIARRA Bhandari Original Note: Social Work Phone call from Jovita in TCU and Pt insurance has denied preauth for SNF placement. Phone call placed to pt dgt Aleta Ochoa and informed of this. Pt dgt lives in [place] and a second dgt lives out of state as well. Pt has a brother Connor who lives locally but dgt reports pt and Connor are not close. Prior to fall and hospitalization pt lived at home independently. CHERYLE explained that pt is not safe to return home alone at this time due to cognitive impairment. CHERYLE inquired with Aleta if pt is able to private pay at a nursing facility. Aleta states pt does not have resources for a nursing facility. CHERYLE inquired if pt has a financial POA or health care POA and Aleta states pt does not have either. CHERYLE presented option of applying for Medicaid for possible placement in a memory unit. Aleta is agreeable and CHERYLE attempted to complete application over the phone. Aleta is able to provide pt income but does not know bank account information or the bank that pt uses as it was recently changed. Application cannot be finished without this information. CHERYLE met with pt. Pt is awake and alert. Can give name of daughters and states she has sons as well. Not able to answer any other questions appropriately and asks random questions throughout the conversation. Phone call to Aleta and CHERYLE explained that pt is unable to answer questions and inquired about other children. Radha lives near [place], Patrice lives locally but Aleta has no contact with him and no contact information. Casey lives locally but Aleta states pt is a drug user and currently in a hospital. CHERYLE asked Aleta to speak to pt and she was agreeable. Phone given to pt. CHERYLE spoke with Aleta after Aleta's conversation with pt. Aleta confirms that pt is unable to provide needed financial information and is now understanding that pt cannot call the bank for information. CHERYLE inquired about pt brother Connor and the amount of help he has provided to pt and if he would be able to assist. Aleta will call pt brother Connor to check on level of involvement and notify SW. SW to followup for safe d/c plan. Plan: KIARRA Almaguer
[2017-11-27 14:50] VITALS: BP 148/82; PULSE 88; RESP 18; TEMP 37.1; O2SAT 97
[2017-11-27 20:40] VITALS: BP 146/78; PULSE 88; RESP 18; TEMP 36.4; O2SAT 100
[2017-11-27 20:40] LABS: Bacteria 0 SEEN /hpf (None Seen); Mucous, Urine 0 SEEN /hpf (<or=2+); Red Blood Cells-Urine 0 SEEN /hpf (0-5); White Blood Cells 0 SEEN /hpf (0-5)
[2017-11-27 20:42] LABS: Color, Urine Yellow (Yellow); Glucose, Dipstick Normal (Normal); Ketone-Dipstick 5 mg/dl (Negative); Leukocyte Esterase-Dipstick Negative /ul (Negative); Nitrite-Dipstick Negative (Negative); Occult Blood-Urine Negative /ul (Negative); Protein-Dipstick Negative (Negative); Specific Gravity, Urine 1.015 (1.002-1.030); Urine Bilirubin Dipstick Negative (Negative); Urine Clarity Clear (Clear); Urine Urobilinogen Normal (Normal)
[2017-11-27 20:48] LABS: Squamous Epithelial Cells - UA 0-5 SEEN /hpf (5-10)
[2017-11-27] MEDS: Amitriptyline 100 MG Tablet PO (23:17)
[2017-11-27] MEDS: Atorvastatin Calcium 10 MG Tablet PO (23:17)
[2017-11-28 04:34] VITALS: BP 142/94; PULSE 90; RESP 18; TEMP 36.6; O2SAT 96
[2017-11-28 06:47] LABS: Anion Gap 8 (5-15); BUN 17 mg/dL (7-18); BUN/Creat Ratio 21.6 RATIO (10-20); Calcium,Total 8.5 mg/dL (8.5-10.1); Chloride 110 mmol/L (98-107); Creatinine, Serum 0.79 mg/dL (0.55-1.02); EST Glomerular Filtration Rate 75 mL/min (>60); Est Glom Filt Rate - Afr Amer 90 mL/min (>60); Estimated Creatinine Clearance 46.68 ml/min; Glucose 83 mg/dL (74-106); Potassium 3.9 mmol/L (3.5-5.1); Sodium Level 143 mmol/L (136-145)
[2017-11-28 08:59] VITALS: BP 127/78; PULSE 85; RESP 18; TEMP 36.9; O2SAT 98
--- NOTE | 2017-11-28 09:04 | NURSING ---
per pt request, brother, sarai hathaway called, he did not answer, left message that she is here @ [facility] and would like to speak to him
--- NOTE | 2017-11-28 10:07 | CT_ITS ---
STUDY: CT BRAIN WITHOUT CONTRAST REASON FOR EXAM: Female, 82 years old. Status post fall RADIATION DOSAGE (If Supplied By Facility): CTDIvol = ( 60.81 ) mGy, DLP = ( 1044.28 ) mGycm TECHNIQUE: Transaxial CT imaging of the brain was performed without administration of intravenous contrast material. Individualized dose optimization techniques were used for this CT. COMPARISON: May 17, 2017, November 24, 2017 CT scan head FINDINGS: There is a focus of left frontal soft tissue swelling which has reduced in size since the prior study. Normal calvarium. There is mild cerebral atrophy with widening of the extra-axial spaces and ventricular dilatation. There are areas of decreased attenuation within the white matter tracts of the supratentorial brain, consistent with microvascular disease changes. There are small punctate calcifications of the basal ganglia which are seen in the aging brain as a normal variant. Normal brainstem. There is mild cerebellar atrophy. There is no intracranial hemorrhage. There are no findings of an acute ischemic infarction. Normal visualized paranasal sinuses. CT/Brain/Head without Contrast IMPRESSION: Atrophy. No visualized evidence of an acute hemorrhage. Reduction in the left frontal superficial soft tissue swelling when compared to prior study. Electronically Signed: Eli Powell MD at 14:56 EDT Tel , Service support ,
[2017-11-28] MEDS: Citalopram 20 MG Tablet PO (11:03)
[2017-11-28] MEDS: Carvedilol 3.125 MG TABLET PO ×2 (11:03→22:08)
[2017-11-28] MEDS: Clopidogrel Bisulfate 75 MG Tablet PO (11:03)
[2017-11-28] MEDS: Famotidine 20 MG Tablet PO ×2 (11:03→22:09)
--- NOTE | 2017-11-28 12:32 | PCM.PN.HOSP ---
Patient Problems: Active and Suspected Problems Fall (Acute) Concussion (Acute) Subjective: As per the nursing staff, patient was agitated, disoriented, confused last night. The ER nurse that she was in her normal mental status which was alert and oriented in ER. CT head was ordered. As per previous note, patient also received 3 doses of Haldol during hospital stay. UA is negative. Patient had fall prior to admission and had scalp laceration in the right frontal region and left periorbital edema and bruise. Vitals/I&O's: Vital Signs Temp Pulse Resp BP Pulse Ox 98.4 F 85 18 127/78 H 98 11/28/17 08:59 11/28/17 08:59 11/28/17 08:59 11/28/17 08:59 11/28/17 08:59 Oxygen Delivery Method Room Air Weight: 145 lb 4.554 oz Body Mass Index (BMI) 21.4 Intake and Output for Last 24 Hours 11/26/17 11/27/17 11/28/17 23:59 23:59 23:59 Intake Total 100 / 100 540 / 540 700 / 700 Output Total 800 / 800 Balance 100 / 100 540 / 540 -100 / -100 General: Confused, Disoriented, - - Talking incomprehensible speech. Incoherent speech HEENT: Atraumatic, PERRLA, EOMI, Normocephalic Oral: - Neck: Supple, No JVD, Negative Carotid Bruits Lungs: Diminished, Rhonchi, - - Has chronic cough. History of COPD Cardiovascular: Regular rate, No murmurs Abdomen: Bowel Sounds Present, Soft, Non Tender, Non-Distended Extremities: Edema Skin: No rashes, No breakdown, Ulcer/ Wound, - - Soft tissue hematoma right frontal region. bruise present over left periorbital region. Laboratory Results 11/27/17 20:33: Urine Color Yellow, Urine Clarity Clear, Urine pH 8.0, Ur Specific [place] 1.015, Urine Protein Negative, Urine Glucose (UA) Normal, Urine Ketones 5 H, Urine Occult Blood Negative, Urine Nitrite Negative, Urine Bilirubin Negative, Urine Urobilinogen Normal, Ur Leukocyte Esterase Negative, Urine RBC 0 SEEN, Urine WBC 0 SEEN, Ur Squamous Epith Cells 0-5 SEEN, Urine Bacteria 0 SEEN, Urine Mucus 0 SEEN 11/28/17 06:06: Sodium 143, Potassium 3.9, Chloride 110 H, Carbon Dioxide 25.0, Anion Gap 8, BUN 17, Creatinine 0.79, Estim Creat Clear Calc 46.68, Est GFR (MDRD) Af Amer 90, Est GFR (MDRD) Non-Af 75, BUN/Creatinine Ratio 21.6 H, Glucose 83, Calcium 8.5 Current Medications Acetaminophen (Tylenol) 650 mg PO Q6H PRN PRN PRN Reason: Non-cardiac pain (mod-severe) Last Admin: 11/25/17 04:42 Dose: 650 mg Hydrocodone Bitart/Acetaminophen ([place] 5mg-325mg) 1 - 2 tablet PO Q6H PRN PRN PRN Reason: Moderate-severe pain Al Hydroxide/Mg Hydroxide (Mylanta Ii) 30 ml PO Q6H PRN PRN PRN Reason: Gastric burning Albuterol Sulfate (Ventolin Aerosols) 2.5 mg INHALATION Q2H PRN PRN PRN Reason: dyspnea, wheezing Last Admin: 11/27/17 01:12 Dose: 2.5 mg Albuterol/Ipratropium (Duoneb) 3 ml INHALATION Q6HWA.RT [facility] Last Admin: 11/28/17 07:01 Dose: Not Given Amitriptyline HCl (Elavil) 100 mg PO QHS [facility] Last Admin: 11/27/17 23:17 Dose: 100 mg Atorvastatin Calcium (Lipitor) 10 mg PO QHS [facility] Last Admin: 11/27/17 23:17 Dose: 10 mg Carvedilol (Coreg) 3.125 mg PO BID [facility] Last Admin: 11/28/17 11:03 Dose: 3.125 mg Citalopram Hydrobromide (Celexa) 20 mg PO DAILY [facility] Last Admin: 11/28/17 11:03 Dose: 20 mg Clopidogrel Bisulfate (Plavix) 75 mg PO DAILY [facility] Last Admin: 11/28/17 11:03 Dose: 75 mg Famotidine (Pepcid) 20 mg PO BID [facility] Last Admin: 11/28/17 11:03 Dose: 20 mg Hydralazine HCl (Apresoline) 10 mg PO 4X/DAY PRN PRN Reason: SBP >160 Last Admin: 11/26/17 05:21 Dose: 10 mg Magnesium Hydroxide (Milk Of Magnesia) 30 ml PO DAILY PRN PRN PRN Reason: Constipation Last Admin: 11/26/17 15:33 Dose: 30 ml Morphine Sulfate () 1 - 2 mg IV Q4H PRN PRN PRN Reason: PAIN Ondansetron HCl (Zofran) 4 mg IV Q8H PRN PRN PRN Reason: NAUSEA Promethazine HCl (Phenergan) 12.5 mg IV Q6H PRN PRN PRN Reason: NAUSEA/VOMITING Sodium Chloride () 5 - 30 ml IV UD PRN PRN Reason: SALINE FLUSH Medical Necessity - Tobacco Use Smoking Status: Current some day smoker Tobacco Use: Cigarettes Assessment/Plan All Active Problems Fall (Acute) Concussion (Acute) SDH (subdural hematoma) (Acute) Debility (Acute) Right arm pain (Acute) Abnormal ECG (Acute) Patient is an 82-year-old lady with multiple comorbidities including COPD, previous CVA who presented following a fall. On further questioning patient admitted to losing her balance and falling into objects 1. Acute mechanical fall with scalp contusion and hematoma: Patient admitted to a regular nursing floor requested for PT OT eval and clinical social work aide to assist with discharge planning. Repeat CT had ordered as nursing staff states she has noticed mental status changes last night. Avoid benzodiazepines. Patient had CT head and MRI showed left frontal scalp hematoma. 2. Ataxia inpatient history of previous CVA: MRI did not show acute stroke/CVA 3. Chronic systolic heart failure with an ejection fraction of 35% 4. COPD currently not in exacerbation 5. Hypertension-blood pressure controlled, home medications continued with dose adjustment as needed 6. Dyslipidemia-patient is on statin therapy, continued at home dose 7. Degenerative joint disease 8. Depression with anxiety patient is on Celexa 9. Tobacco dependence counseled on cessation, offered nicotine patch for tobacco cravings 10. DVT prophylaxis SCDs for now 11. Acute delirium do suspect some underlying dementia with behavioral agitation patient did receive Haldol for agitation. Patient delirium remains and subsequently ordered urinalysis to rule out an infectious etiology. Patient needs redirection and orientation. UA is negative. Urine culture pending. Laboratory Results 11/27/17 20:33: Urine Color Yellow, Urine Clarity Clear, Urine pH 8.0, Ur Specific [place] 1.015, Urine Protein Negative, Urine Glucose (UA) Normal, Urine Ketones 5 H, Urine Occult Blood Negative, Urine Nitrite Negative, Urine Bilirubin Negative, Urine Urobilinogen Normal, Ur Leukocyte Esterase Negative, Urine RBC 0 SEEN, Urine WBC 0 SEEN, Ur Squamous Epith Cells 0-5 SEEN, Urine Bacteria 0 SEEN, Urine Mucus 0 SEEN 11/28/17 06:06: Sodium 143, Potassium 3.9, Chloride 110 H, Carbon Dioxide 25.0, Anion Gap 8, BUN 17, Creatinine 0.79, Estim Creat Clear Calc 46.68, Est GFR (MDRD) Af Amer 90, Est GFR (MDRD) Non-Af 75, BUN/Creatinine Ratio 21.6 H, Glucose 83, Calcium 8.5 Clinical Impression(s) from Imaging Studies Brain CT 11/24/17 14:46 IMPRESSION: Chronic involutional changes of the brain. Scalp hematoma overlying the left frontal bone. Hip/Pelvis X-Ray 11/24/17 14:47 IMPRESSION: Mild degree of degenerative changes of the left hip. No fracture or dislocation is seen. Status post laminectomy and fusion at the L4-L5 level. Cervical Spine CT 11/24/17 14:50 IMPRESSION: Multilevel degenerative changes, as described above. No acute abnormality is seen. Lumbar Spine X-Ray 11/24/17 14:51 IMPRESSION: Degenerative changes of the spine, as detailed above. Prior laminectomy at the L4-L5 level with interpedicular screw fixation. Grade 2 anterior listhesis of L4 on L5. Elbow X-Ray 11/24/17 15:20 IMPRESSION: Posterior soft tissue laceration. Brain MRI 11/25/17 08:29 IMPRESSION: Involutional changes of the brain, as described above. There is mild small vessel ischemic white matter disease. There is left frontal scalp hematoma. Code Visit Inpatient E&M: 23420 Subs Hosp L2
--- NOTE | 2017-11-28 12:38 | PN_ITS ---
Patient Problems: Active and Suspected Problems Fall (Acute) Concussion (Acute) Subjective: As per the nursing staff, patient was agitated, disoriented, confused last night. The ER nurse that she was in her normal mental status which was alert and oriented in ER. CT head was ordered. As per previous note, patient also received 3 doses of Haldol during hospital stay. UA is negative. Patient had fall prior to admission and had scalp laceration in the right frontal region and left periorbital edema and bruise. Vitals/I&O's: Vital Signs Temp Pulse Resp BP Pulse Ox 98.4 F 85 18 127/78 H 98 11/28/17 08:59 11/28/17 08:59 11/28/17 08:59 11/28/17 08:59 11/28/17 08:59 Oxygen Delivery Method Room Air Weight: 145 lb 4.554 oz Body Mass Index (BMI) 21.4 Intake and Output for Last 24 Hours 11/26/17 11/27/17 11/28/17 23:59 23:59 23:59 Intake Total 100 / 100 540 / 540 700 / 700 Output Total 800 / 800 Balance 100 / 100 540 / 540 -100 / -100 General: Confused, Disoriented, - - Talking incomprehensible speech. Incoherent speech HEENT: Atraumatic, PERRLA, EOMI, Normocephalic Oral: - Neck: Supple, No JVD, Negative Carotid Bruits Lungs: Diminished, Rhonchi, - - Has chronic cough. History of COPD Cardiovascular: Regular rate, No murmurs Abdomen: Bowel Sounds Present, Soft, Non Tender, Non-Distended Extremities: Edema Skin: No rashes, No breakdown, Ulcer/ Wound, - - Soft tissue hematoma right frontal region. bruise present over left periorbital region. Laboratory Results 11/27/17 20:33: Urine Color Yellow, Urine Clarity Clear, Urine pH 8.0, Ur Specific Fisher 1.015, Urine Protein Negative, Urine Glucose (UA) Normal, Urine Ketones 5 H, Urine Occult Blood Negative, Urine Nitrite Negative, Urine Bilirubin Negative, Urine Urobilinogen Normal, Ur Leukocyte Esterase Negative, Urine RBC 0 SEEN, Urine WBC 0 SEEN, Ur Squamous Epith Cells 0-5 SEEN, Urine Bacteria 0 SEEN, Urine Mucus 0 SEEN 11/28/17 06:06: Sodium 143, Potassium 3.9, Chloride 110 H, Carbon Dioxide 25.0, Anion Gap 8, BUN 17, Creatinine 0.79, Estim Creat Clear Calc 46.68, Est GFR ( MDRD) Af Amer 90, Est GFR (MDRD) Non-Af 75, BUN/Creatinine Ratio 21.6 H, Glucose 83, Calcium 8.5 Current Medications Acetaminophen (Tylenol) 650 mg PO Q6H PRN PRN PRN Reason: Non-cardiac pain (mod-severe) Last Admin: 11/25/17 04:42 Dose: 650 mg Hydrocodone Bitart/Acetaminophen ([place] 5mg-325mg) 1 - 2 tablet PO Q6H PRN PRN PRN Reason: Moderate-severe pain Al Hydroxide/Mg Hydroxide (Mylanta Ii) 30 ml PO Q6H PRN PRN PRN Reason: Gastric burning Albuterol Sulfate (Ventolin Aerosols) 2.5 mg INHALATION Q2H PRN PRN PRN Reason: dyspnea, wheezing Last Admin: 11/27/17 01:12 Dose: 2.5 mg Albuterol/Ipratropium (Duoneb) 3 ml INHALATION Q6HWA.RT [facility] Last Admin: 11/28/17 07:01 Dose: Not Given Amitriptyline HCl (Elavil) 100 mg PO QHS [facility] Last Admin: 11/27/17 23:17 Dose: 100 mg Atorvastatin Calcium (Lipitor) 10 mg PO QHS [facility] Last Admin: 11/27/17 23:17 Dose: 10 mg Carvedilol (Coreg) 3.125 mg PO BID [facility] Last Admin: 11/28/17 11:03 Dose: 3.125 mg Citalopram Hydrobromide (Celexa) 20 mg PO DAILY [facility] Last Admin: 11/28/17 11:03 Dose: 20 mg Clopidogrel Bisulfate (Plavix) 75 mg PO DAILY [facility] Last Admin: 11/28/17 11:03 Dose: 75 mg Famotidine (Pepcid) 20 mg PO BID [facility] Last Admin: 11/28/17 11:03 Dose: 20 mg Hydralazine HCl (Apresoline) 10 mg PO 4X/DAY PRN PRN Reason: SBP >160 Last Admin: 11/26/17 05:21 Dose: 10 mg Magnesium Hydroxide (Milk Of Magnesia) 30 ml PO DAILY PRN PRN PRN Reason: Constipation Last Admin: 11/26/17 15:33 Dose: 30 ml Morphine Sulfate () 1 - 2 mg IV Q4H PRN PRN PRN Reason: PAIN Ondansetron HCl (Zofran) 4 mg IV Q8H PRN PRN PRN Reason: NAUSEA Promethazine HCl (Phenergan) 12.5 mg IV Q6H PRN PRN PRN Reason: NAUSEA/VOMITING Sodium Chloride () 5 - 30 ml IV UD PRN PRN Reason: SALINE FLUSH Medical Necessity - Tobacco Use Smoking Status: Current some day smoker Tobacco Use: Cigarettes Assessment/Plan All Active Problems Fall (Acute) Concussion (Acute) SDH (subdural hematoma) (Acute) Debility (Acute) Right arm pain (Acute) Abnormal ECG (Acute) Patient is an 82-year-old lady with multiple comorbidities including COPD, previous CVA who presented following a fall. On further questioning patient admitted to losing her balance and falling into objects 1. Acute mechanical fall with scalp contusion and hematoma: Patient admitted to a regular nursing floor requested for PT OT eval and psychiatric social worker supervisor to assist with discharge planning. Repeat CT had ordered as nursing staff states she has noticed mental status changes last night. Avoid benzodiazepines. Patient had CT head and MRI showed left frontal scalp hematoma. 2. Ataxia inpatient history of previous CVA: MRI did not show acute stroke/CVA 3. Chronic systolic heart failure with an ejection fraction of 35% 4. COPD currently not in exacerbation 5. Hypertension-blood pressure controlled, home medications continued with dose adjustment as needed 6. Dyslipidemia-patient is on statin therapy, continued at home dose 7. Degenerative joint disease 8. Depression with anxiety patient is on Celexa 9. Tobacco dependence counseled on cessation, offered nicotine patch for tobacco cravings 10. DVT prophylaxis SCDs for now 11. Acute delirium do suspect some underlying dementia with behavioral agitation patient did receive Haldol for agitation. Patient delirium remains and subsequently ordered urinalysis to rule out an infectious etiology. Patient needs redirection and orientation. UA is negative. Urine culture pending. Laboratory Results 11/27/17 20:33: Urine Color Yellow, Urine Clarity Clear, Urine pH 8.0, Ur Specific [place] 1.015, Urine Protein Negative, Urine Glucose (UA) Normal, Urine Ketones 5 H, Urine Occult Blood Negative, Urine Nitrite Negative, Urine Bilirubin Negative, Urine Urobilinogen Normal, Ur Leukocyte Esterase Negative, Urine RBC 0 SEEN, Urine WBC 0 SEEN, Ur Squamous Epith Cells 0-5 SEEN, Urine Bacteria 0 SEEN, Urine Mucus 0 SEEN 11/28/17 06:06: Sodium 143, Potassium 3.9, Chloride 110 H, Carbon Dioxide 25.0, Anion Gap 8, BUN 17, Creatinine 0.79, Estim Creat Clear Calc 46.68, Est GFR ( MDRD) Af Amer 90, Est GFR (MDRD) Non-Af 75, BUN/Creatinine Ratio 21.6 H, Glucose 83, Calcium 8.5 Clinical Impression(s) from Imaging Studies Brain CT 11/24/17 14:46 IMPRESSION: Chronic involutional changes of the brain. Scalp hematoma overlying the left frontal bone. Hip/Pelvis X-Ray 11/24/17 14:47 IMPRESSION: Mild degree of degenerative changes of the left hip. No fracture or dislocation is seen. Status post laminectomy and fusion at the L4-L5 level. Cervical Spine CT 11/24/17 14:50 IMPRESSION: Multilevel degenerative changes, as described above. No acute abnormality is seen. Lumbar Spine X-Ray 11/24/17 14:51 IMPRESSION: Degenerative changes of the spine, as detailed above. Prior laminectomy at the L4-L5 level with interpedicular screw fixation. Grade 2 anterior listhesis of L4 on L5. Elbow X-Ray 11/24/17 15:20 IMPRESSION: Posterior soft tissue laceration. Brain MRI 11/25/17 08:29 IMPRESSION: Involutional changes of the brain, as described above. There is mild small vessel ischemic white matter disease. There is left frontal scalp hematoma. Code Visit Inpatient E&M: 35358 Subs Hosp L2
[2017-11-28 13:46] VITALS: BP 131/71; PULSE 86; RESP 18; TEMP 36.7; O2SAT 94
--- NOTE | 2017-11-28 16:16 | CASEMGMT ---
Social Work Note SW spent much time with pt speaking with pt about finances for Medicaid application. Pt is still very much confused. CHERYLE placed a call to pt's daughter Aleta and Aleta informed this worker that someone will need to dial the number for [employer] and have the pt ask for account balance to get finances. CHERYLE explained that pt is still very confused and this worker is unsure if bank will provide information to pt due to her confusion. Aleta states understanding and informed this worker that she had called pt's brother Connor to see if he is able to get into pt's house to get bank account statement. CHERYLE placed a call pt's brother Connor who states that pt has nurse at [facility] and pt's checkbook should be in purse with account statement. CHERYLE went into pt's room with Button Broacher Leatha SALAS and asked pt to get checkbook so this worker can get account balance for Medicaid application. Pt did worse with PT/OT today. This SW discussed case with Social Service Manger Leatha Modi who states that pre-cert could possibly be submitted again as pt has functionally declined. SW sent referral to [facility] as pt has been there in the past. CHERYLE placed a call to Kendra at [facility] and updated her on pt's case. Kendra states that she will look over referral and give this worker a call back. This SW is leaving for the day and will follow up with Kendra at [facility] on Friday. Plan: SNF pending acceptance and pre-cert Cintia Phillips BUILDING CERTIFIER, HOTEL OPERATIONS MANAGER
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
[2017-11-28 19:55] VITALS: PULSE 67; RESP 24
[2017-11-28] MEDS: Ipratropium/Albuterol Sulfate 3 ML AMPUL.NEB INHALATION (19:55)
[2017-11-28 20:25] VITALS: BP 109/69; PULSE 93; RESP 18; TEMP 36.9; O2SAT 95
[2017-11-28] MEDS: Amitriptyline 100 MG Tablet PO (22:08)
[2017-11-28] MEDS: Atorvastatin Calcium 10 MG Tablet PO (22:09)
[2017-11-28 22:11] VITALS: BP 116/70; PULSE 83
[2017-11-29 02:30] VITALS: BP 128/77; PULSE 78; RESP 18; TEMP 36.7; O2SAT 96
[2017-11-29 08:22] VITALS: BP 99/67; PULSE 89; RESP 18; TEMP 37.2; O2SAT 96
[2017-11-29] MEDS: Famotidine 20 MG Tablet PO ×2 (09:11→20:14)
[2017-11-29] MEDS: Carvedilol 3.125 MG TABLET PO ×2 (09:11→20:14)
[2017-11-29] MEDS: Citalopram 20 MG Tablet PO (09:11)
[2017-11-29] MEDS: Clopidogrel Bisulfate 75 MG Tablet PO (09:12)
[2017-11-29 09:35] VITALS: O2SAT 95
[2017-11-29 11:15] VITALS: PULSE 73; RESP 18
[2017-11-29] MEDS: Ipratropium/Albuterol Sulfate 3 ML AMPUL.NEB INHALATION (11:22)
--- NOTE | 2017-11-29 13:24 | PN_ITS ---
Patient Problems: Active and Suspected Problems Fall (Acute) Concussion (Acute) Subjective: Patient is confused, disoriented and talking incoherent; incomprehensible. Vitals/I&O's: Vital Signs Temp Pulse Resp BP Pulse Ox 99.0 F 73 18 99/67 95 11/29/17 08:22 11/29/17 11:15 11/29/17 11:15 11/29/17 08:22 11/29/17 09:35 Oxygen Delivery Method Room Air Weight: 145 lb 4.554 oz Body Mass Index (BMI) 21.4 Intake and Output for Last 24 Hours 11/27/17 11/28/17 11/29/17 23:59 23:59 23:59 Intake Total 540 / 540 700 / 700 Output Total 800 / 800 Balance 540 / 540 -100 / -100 General: Alert, Oriented x3, Cooperative HEENT: Atraumatic, PERRLA, EOMI, Normocephalic Neck: Supple, No JVD, Negative Carotid Bruits Lungs: Clear to auscultation, Diminished Cardiovascular: Regular rate, Regular Rhythm, Normal S1, Normal S2, No murmurs Abdomen: Bowel Sounds Present, Soft, Non Tender Extremities: Capillary Refill Less than 3 Seconds, Edema Skin: No rashes, No breakdown, - - Bruise present over left periorbital region and frontal scalp Musculoskeletal: No Tenderness to Palpation of Joints or Extremities, Arthritic Changes, Muscle Wasting Neurological: Cranial nerves II-XII grossly intact Psych/Mental Status: Normal Affect, Appropriate Microbiology Past 72 Hours 11/27/17 20:33 Urine Catheter - Catheter Urine Culture - Preliminary Culture exhibits no growth. Current Medications Acetaminophen (Tylenol) 650 mg PO Q6H PRN PRN PRN Reason: Non-cardiac pain (mod-severe) Last Admin: 11/25/17 04:42 Dose: 650 mg Hydrocodone Bitart/Acetaminophen ([place] 5mg-325mg) 1 - 2 tablet PO Q6H PRN PRN PRN Reason: Moderate-severe pain Al Hydroxide/Mg Hydroxide (Mylanta Ii) 30 ml PO Q6H PRN PRN PRN Reason: Gastric burning Albuterol Sulfate (Ventolin Aerosols) 2.5 mg INHALATION Q2H PRN PRN PRN Reason: dyspnea, wheezing Last Admin: 11/27/17 01:12 Dose: 2.5 mg Albuterol/Ipratropium (Duoneb) 3 ml INHALATION Q6HWA.RT [facility] Last Admin: 11/29/17 11:22 Dose: 3 ml Amitriptyline HCl (Elavil) 100 mg PO QHS [facility] Last Admin: 11/28/17 22:08 Dose: 100 mg Atorvastatin Calcium (Lipitor) 10 mg PO QHS [facility] Last Admin: 11/28/17 22:09 Dose: 10 mg Carvedilol (Coreg) 3.125 mg PO BID [facility] Last Admin: 11/29/17 09:11 Dose: 3.125 mg Citalopram Hydrobromide (Celexa) 20 mg PO DAILY [facility] Last Admin: 11/29/17 09:11 Dose: 20 mg Clopidogrel Bisulfate (Plavix) 75 mg PO DAILY [facility] Last Admin: 11/29/17 09:12 Dose: 75 mg Famotidine (Pepcid) 20 mg PO BID [facility] Last Admin: 11/29/17 09:11 Dose: 20 mg Hydralazine HCl (Apresoline) 10 mg PO 4X/DAY PRN PRN Reason: SBP >160 Last Admin: 11/26/17 05:21 Dose: 10 mg Magnesium Hydroxide (Milk Of Magnesia) 30 ml PO DAILY PRN PRN PRN Reason: Constipation Last Admin: 11/26/17 15:33 Dose: 30 ml Morphine Sulfate () 1 - 2 mg IV Q4H PRN PRN PRN Reason: PAIN Ondansetron HCl (Zofran) 4 mg IV Q8H PRN PRN PRN Reason: NAUSEA Promethazine HCl (Phenergan) 12.5 mg IV Q6H PRN PRN PRN Reason: NAUSEA/VOMITING Sodium Chloride () 5 - 30 ml IV UD PRN PRN Reason: SALINE FLUSH Medical Necessity - Tobacco Use Smoking Status: Current some day smoker Tobacco Use: Cigarettes Assessment/Plan All Active Problems Fall (Acute) Concussion (Acute) SDH (subdural hematoma) (Acute) Debility (Acute) Right arm pain (Acute) Abnormal ECG (Acute) Patient is an 82-year-old lady with multiple comorbidities including COPD, previous CVA who presented following a fall. On further questioning patient admitted to losing her balance and falling into objects 1. Acute mechanical fall with scalp contusion and hematoma: Patient admitted to a regular nursing floor requested for PT OT eval and social welfare research worker to assist with discharge planning. Repeat CT head does not show evidence of an acute hemorrhage but reduction in left frontal superior soft tissue swelling. Avoid benzodiazepines. Patient had CT head and MRI showed left frontal scalp hematoma. 2. Ataxia inpatient history of previous CVA: MRI did not show acute stroke/CVA 3. Chronic systolic heart failure with an ejection fraction of 35% 4. COPD currently not in exacerbation 5. Hypertension-blood pressure controlled, home medications continued with dose adjustment as needed 6. Dyslipidemia-patient is on statin therapy, continued at home dose 7. Degenerative joint disease 8. Depression with anxiety patient is on Celexa 9. Tobacco dependence counseled on cessation, offered nicotine patch for tobacco cravings 10. DVT prophylaxis SCDs for now 11. Acute delirium do suspect some underlying dementia with behavioral agitation patient did receive Haldol for agitation. Patient delirium remains and subsequently ordered urinalysis to rule out an infectious etiology. Patient needs redirection and orientation. UA is negative. Urine culture does not show organism. UTI ruled out Laboratory Results 11/27/17 20:33: Urine Color Yellow, Urine Clarity Clear, Urine pH 8.0, Ur Specific [place] 1.015, Urine Protein Negative, Urine Glucose (UA) Normal, Urine Ketones 5 H, Urine Occult Blood Negative, Urine Nitrite Negative, Urine Bilirubin Negative, Urine Urobilinogen Normal, Ur Leukocyte Esterase Negative, Urine RBC 0 SEEN, Urine WBC 0 SEEN, Ur Squamous Epith Cells 0-5 SEEN, Urine Bacteria 0 SEEN, Urine Mucus 0 SEEN 11/28/17 06:06: Sodium 143, Potassium 3.9, Chloride 110 H, Carbon Dioxide 25.0, Anion Gap 8, BUN 17, Creatinine 0.79, Estim Creat Clear Calc 46.68, Est GFR ( MDRD) Af Amer 90, Est GFR (MDRD) Non-Af 75, BUN/Creatinine Ratio 21.6 H, Glucose 83, Calcium 8.5 Microbiology Past 72 Hours 11/27/17 20:33 Urine Catheter - Catheter Urine Culture - Preliminary Culture exhibits no growth. Clinical Impression(s) from Imaging Studies Brain CT 11/24/17 14:46 IMPRESSION: Chronic involutional changes of the brain. Scalp hematoma overlying the left frontal bone. Hip/Pelvis X-Ray 11/24/17 14:47 IMPRESSION: Mild degree of degenerative changes of the left hip. No fracture or dislocation is seen. Status post laminectomy and fusion at the L4-L5 level. Cervical Spine CT 11/24/17 14:50 IMPRESSION: Multilevel degenerative changes, as described above. No acute abnormality is seen. Lumbar Spine X-Ray 11/24/17 14:51 IMPRESSION: Degenerative changes of the spine, as detailed above. Prior laminectomy at the L4-L5 level with interpedicular screw fixation. Grade 2 anterior listhesis of L4 on L5. Elbow X-Ray 11/24/17 15:20 IMPRESSION: Posterior soft tissue laceration. Brain MRI 11/25/17 08:29 IMPRESSION: Involutional changes of the brain, as described above. There is mild small vessel ischemic white matter disease. There is left frontal scalp hematoma. Code Visit Inpatient E&M: 36800 Subs Hosp L2
--- NOTE | 2017-11-29 13:36 | PCA ---
Pt currently in alvarado chair next to this litigation secretary's desk. Primary RN aware.
--- NOTE | 2017-11-29 15:16 | NURSING ---
PT HAS BEEN UP SELF TRANSFERRING FROM BED AND CHAIR. SHE IS UP IN G CHAIR WITH STAFF SUPERVISION.SHE IS FUSSING WITH HER PURSE AND ATTEMPTING TO REMOVE HER TABLE TRAY.
[2017-11-29] MEDS: Haloperidol Lactate 5 MG/ML Vial 2 MG IV ×2 (15:34→20:10)
[2017-11-29] MEDS: 0.9% NaCl Peripheral Flush Adult/Peds IV ×3 (15:34→22:57)
[2017-11-29 16:19] VITALS: BP 122/77; PULSE 93; RESP 18; TEMP 37.2; O2SAT 98
[2017-11-29 20:00] VITALS: BP 119/80; PULSE 82; RESP 16; TEMP 36.9; O2SAT 97
[2017-11-29] MEDS: Atorvastatin Calcium 10 MG Tablet PO (20:14)
[2017-11-29] MEDS: Donepezil HCl 5 MG Tablet PO (20:14)
[2017-11-29] MEDS: Amitriptyline 100 MG Tablet PO (20:14)
[2017-11-29] MEDS: Morphine 2 MG/ML Syringe IV (22:56)
[2017-11-30 01:50] VITALS: BP 106/68; PULSE 80; RESP 16; TEMP 37.1; O2SAT 96
[2017-11-30 08:44] VITALS: BP 126/97; PULSE 91; RESP 16; TEMP 37; O2SAT 96
[2017-11-30 08:46] VITALS: RESP 18
[2017-11-30] MEDS: Famotidine 20 MG Tablet PO ×2 (09:40→22:33)
[2017-11-30] MEDS: Carvedilol 3.125 MG TABLET PO ×2 (09:40→22:33)
[2017-11-30] MEDS: Clopidogrel Bisulfate 75 MG Tablet PO (09:41)
[2017-11-30] MEDS: Citalopram 20 MG Tablet PO (09:41)
[2017-11-30] MEDS: 0.9% NaCl Peripheral Flush Adult/Peds IV ×2 (13:07→22:34)
[2017-11-30] MEDS: Morphine 2 MG/ML Syringe IV ×2 (13:07→22:34)
[2017-11-30 13:20] VITALS: O2SAT 94
--- NOTE | 2017-11-30 15:24 | PCM.PN.HOSP ---
Patient Problems: Active and Suspected Problems Fall (Acute) Concussion (Acute) Subjective: Patient gets intermittent agitation and requires Haldol. Patient still unsteady on feet and requires one-to-one watch. She tries to get out of bed and walk. Vitals/I&O's: Vital Signs Temp Pulse Resp BP Pulse Ox 98.6 F 91 18 126/97 H 94 11/30/17 08:44 11/30/17 08:44 11/30/17 08:46 11/30/17 08:44 11/30/17 13:20 Oxygen Delivery Method Room Air Weight: 145 lb 4.554 oz Body Mass Index (BMI) 21.4 Intake and Output for Last 24 Hours 11/28/17 11/29/17 11/30/17 23:59 23:59 23:59 Intake Total 700 / 700 1250 / 1250 620 / 620 Output Total 800 / 800 Balance -100 / -100 1250 / 1250 620 / 620 General: Alert, Oriented x3, Cooperative HEENT: Atraumatic, PERRLA, EOMI, Normocephalic, - - Left periorbital bruise and left frontal hematoma, getting better Neck: Supple, No JVD, Negative Carotid Bruits Lungs: Clear to auscultation, Normal air movement Cardiovascular: Regular rate, Normal S1, Normal S2, No murmurs Abdomen: Bowel Sounds Present, Soft, Non Tender Extremities: Capillary Refill Less than 3 Seconds, Edema Skin: No rashes, No breakdown Musculoskeletal: No Tenderness to Palpation of Joints or Extremities, Arthritic Changes, Muscle Wasting Neurological: Cranial nerves II-XII grossly intact Psych/Mental Status: Normal Affect, Appropriate Microbiology Past 72 Hours 11/27/17 20:33 Urine Catheter - Catheter Urine Culture - Final Culture exhibits no growth. Current Medications Acetaminophen (Tylenol) 650 mg PO Q6H PRN PRN PRN Reason: Non-cardiac pain (mod-severe) Last Admin: 11/25/17 04:42 Dose: 650 mg Hydrocodone Bitart/Acetaminophen ([place] 5mg-325mg) 1 - 2 tablet PO Q6H PRN PRN PRN Reason: Moderate-severe pain Al Hydroxide/Mg Hydroxide (Mylanta Ii) 30 ml PO Q6H PRN PRN PRN Reason: Gastric burning Albuterol Sulfate (Ventolin Aerosols) 2.5 mg INHALATION Q2H PRN PRN PRN Reason: dyspnea, wheezing Last Admin: 11/27/17 01:12 Dose: 2.5 mg Albuterol/Ipratropium (Duoneb) 3 ml INHALATION Q6HWA.RT [facility] Last Admin: 11/30/17 13:20 Dose: Not Given Amitriptyline HCl (Elavil) 100 mg PO QHS [facility] Last Admin: 11/29/17 20:14 Dose: 100 mg Atorvastatin Calcium (Lipitor) 10 mg PO QHS [facility] Last Admin: 11/29/17 20:14 Dose: 10 mg Carvedilol (Coreg) 3.125 mg PO BID [facility] Last Admin: 11/30/17 09:40 Dose: 3.125 mg Citalopram Hydrobromide (Celexa) 20 mg PO DAILY [facility] Last Admin: 11/30/17 09:41 Dose: 20 mg Clopidogrel Bisulfate (Plavix) 75 mg PO DAILY [facility] Last Admin: 11/30/17 09:41 Dose: 75 mg Donepezil HCl (Aricept) 5 mg PO QHS [facility] Last Admin: 11/29/17 20:14 Dose: 5 mg Famotidine (Pepcid) 20 mg PO BID [facility] Last Admin: 11/30/17 09:40 Dose: 20 mg Haloperidol Lactate (Haldol) 2 mg IV Q4H PRN PRN PRN Reason: AGITATION Last Admin: 11/29/17 20:10 Dose: 2 mg Hydralazine HCl (Apresoline) 10 mg PO 4X/DAY PRN PRN Reason: SBP >160 Last Admin: 11/26/17 05:21 Dose: 10 mg Magnesium Hydroxide (Milk Of Magnesia) 30 ml PO DAILY PRN PRN PRN Reason: Constipation Last Admin: 11/26/17 15:33 Dose: 30 ml Morphine Sulfate () 1 - 2 mg IV Q4H PRN PRN PRN Reason: PAIN Last Admin: 11/30/17 13:07 Dose: 1 mg Ondansetron HCl (Zofran) 4 mg IV Q8H PRN PRN PRN Reason: NAUSEA Promethazine HCl (Phenergan) 12.5 mg IV Q6H PRN PRN PRN Reason: NAUSEA/VOMITING Sodium Chloride () 5 - 30 ml IV UD PRN PRN Reason: SALINE FLUSH Last Admin: 11/30/17 13:07 Dose: 10 ml Medical Necessity - Tobacco Use Smoking Status: Current some day smoker Tobacco Use: Cigarettes Assessment/Plan All Active Problems Fall (Acute) Concussion (Acute) SDH (subdural hematoma) (Acute) Debility (Acute) Right arm pain (Acute) Abnormal ECG (Acute) Patient is an 82-year-old lady with multiple comorbidities including COPD, previous CVA who presented following a fall. On further questioning patient admitted to losing her balance and falling into objects 1. Acute mechanical fall with scalp contusion and hematoma: Patient admitted to a regular nursing floor requested for PT OT eval and social studies department chair to assist with discharge planning. Repeat CT head does not show evidence of an acute hemorrhage but reduction in left frontal superior soft tissue swelling. Avoid benzodiazepines. Patient had CT head and MRI showed left frontal scalp hematoma. 2. Altered mental status probably acute encephalopathy secondary to metabolic encephalopathy/polypharmacy on baseline advanced dementia: Avoid benzodiazepine. Patient on one-to-one watch. Started on Aricept. Patient needs redirection and orientation. UA is negative. Urine culture does not show organism. UTI ruled out Ataxia inpatient history of previous CVA: MRI did not show acute stroke/CVA 3. Chronic systolic heart failure with an ejection fraction of 35% 4. COPD currently not in exacerbation 5. Hypertension-blood pressure controlled, home medications continued with dose adjustment as needed 6. Dyslipidemia-patient is on statin therapy, continued at home dose 7. Degenerative joint disease 8. Depression with anxiety patient is on Celexa 9. Tobacco dependence counseled on cessation, offered nicotine patch for tobacco cravings 10. DVT prophylaxis SCDs for now Microbiology Past 72 Hours 11/27/17 20:33 Urine Catheter - Catheter Urine Culture - Final Culture exhibits no growth. Clinical Impression(s) from Imaging Studies Brain CT 11/24/17 14:46 IMPRESSION: Chronic involutional changes of the brain. Scalp hematoma overlying the left frontal bone. Hip/Pelvis X-Ray 11/24/17 14:47 IMPRESSION: Mild degree of degenerative changes of the left hip. No fracture or dislocation is seen. Status post laminectomy and fusion at the L4-L5 level. Cervical Spine CT 11/24/17 14:50 IMPRESSION: Multilevel degenerative changes, as described above. No acute abnormality is seen. Lumbar Spine X-Ray 11/24/17 14:51 IMPRESSION: Degenerative changes of the spine, as detailed above. Prior laminectomy at the L4-L5 level with interpedicular screw fixation. Grade 2 anterior listhesis of L4 on L5. Elbow X-Ray 11/24/17 15:20 IMPRESSION: Posterior soft tissue laceration. Brain MRI 11/25/17 08:29 IMPRESSION: Involutional changes of the brain, as described above. There is mild small vessel ischemic white matter disease. There is left frontal scalp hematoma. Active Medications Acetaminophen (Tylenol) 650 mg PO Q6H PRN PRN PRN Reason: Non-cardiac pain (mod-severe) Last Admin: 11/25/17 04:42 Dose: 650 mg Hydrocodone Bitart/Acetaminophen ([place] 5mg-325mg) 1 - 2 tablet PO Q6H PRN PRN PRN Reason: Moderate-severe pain Al Hydroxide/Mg Hydroxide (Mylanta Ii) 30 ml PO Q6H PRN PRN PRN Reason: Gastric burning Albuterol Sulfate (Ventolin Aerosols) 2.5 mg INHALATION Q2H PRN PRN PRN Reason: dyspnea, wheezing Last Admin: 11/27/17 01:12 Dose: 2.5 mg Albuterol/Ipratropium (Duoneb) 3 ml INHALATION Q6HWA.RT [facility] Last Admin: 11/30/17 13:20 Dose: Not Given Amitriptyline HCl (Elavil) 100 mg PO QHS [facility] Last Admin: 11/29/17 20:14 Dose: 100 mg Atorvastatin Calcium (Lipitor) 10 mg PO QHS [facility] Last Admin: 11/29/17 20:14 Dose: 10 mg Carvedilol (Coreg) 3.125 mg PO BID [facility] Last Admin: 11/30/17 09:40 Dose: 3.125 mg Citalopram Hydrobromide (Celexa) 20 mg PO DAILY [facility] Last Admin: 11/30/17 09:41 Dose: 20 mg Clopidogrel Bisulfate (Plavix) 75 mg PO DAILY [facility] Last Admin: 11/30/17 09:41 Dose: 75 mg Donepezil HCl (Aricept) 5 mg PO QHS [facility] Last Admin: 11/29/17 20:14 Dose: 5 mg Famotidine (Pepcid) 20 mg PO BID [facility] Last Admin: 11/30/17 09:40 Dose: 20 mg Haloperidol Lactate (Haldol) 2 mg IV Q4H PRN PRN PRN Reason: AGITATION Last Admin: 11/29/17 20:10 Dose: 2 mg Hydralazine HCl (Apresoline) 10 mg PO 4X/DAY PRN PRN Reason: SBP >160 Last Admin: 11/26/17 05:21 Dose: 10 mg Magnesium Hydroxide (Milk Of Magnesia) 30 ml PO DAILY PRN PRN PRN Reason: Constipation Last Admin: 11/26/17 15:33 Dose: 30 ml Morphine Sulfate () 1 - 2 mg IV Q4H PRN PRN PRN Reason: PAIN Last Admin: 11/30/17 13:07 Dose: 1 mg Ondansetron HCl (Zofran) 4 mg IV Q8H PRN PRN PRN Reason: NAUSEA Promethazine HCl (Phenergan) 12.5 mg IV Q6H PRN PRN PRN Reason: NAUSEA/VOMITING Sodium Chloride () 5 - 30 ml IV UD PRN PRN Reason: SALINE FLUSH Last Admin: 11/30/17 13:07 Dose: 10 ml Code Visit Inpatient E&M: 38008 Subs Hosp L3
--- NOTE | 2017-11-30 15:28 | PN_ITS ---
Patient Problems: Active and Suspected Problems Fall (Acute) Concussion (Acute) Subjective: Patient gets intermittent agitation and requires Haldol. Patient still unsteady on feet and requires one-to-one watch. She tries to get out of bed and walk. Vitals/I&O's: Vital Signs Temp Pulse Resp BP Pulse Ox 98.6 F 91 18 126/97 H 94 11/30/17 08:44 11/30/17 08:44 11/30/17 08:46 11/30/17 08:44 11/30/17 13:20 Oxygen Delivery Method Room Air Weight: 145 lb 4.554 oz Body Mass Index (BMI) 21.4 Intake and Output for Last 24 Hours 11/28/17 11/29/17 11/30/17 23:59 23:59 23:59 Intake Total 700 / 700 1250 / 1250 620 / 620 Output Total 800 / 800 Balance -100 / -100 1250 / 1250 620 / 620 General: Alert, Oriented x3, Cooperative HEENT: Atraumatic, PERRLA, EOMI, Normocephalic, - - Left periorbital bruise and left frontal hematoma, getting better Neck: Supple, No JVD, Negative Carotid Bruits Lungs: Clear to auscultation, Normal air movement Cardiovascular: Regular rate, Normal S1, Normal S2, No murmurs Abdomen: Bowel Sounds Present, Soft, Non Tender Extremities: Capillary Refill Less than 3 Seconds, Edema Skin: No rashes, No breakdown Musculoskeletal: No Tenderness to Palpation of Joints or Extremities, Arthritic Changes, Muscle Wasting Neurological: Cranial nerves II-XII grossly intact Psych/Mental Status: Normal Affect, Appropriate Microbiology Past 72 Hours 11/27/17 20:33 Urine Catheter - Catheter Urine Culture - Final Culture exhibits no growth. Current Medications Acetaminophen (Tylenol) 650 mg PO Q6H PRN PRN PRN Reason: Non-cardiac pain (mod-severe) Last Admin: 11/25/17 04:42 Dose: 650 mg Hydrocodone Bitart/Acetaminophen ([place] 5mg-325mg) 1 - 2 tablet PO Q6H PRN PRN PRN Reason: Moderate-severe pain Al Hydroxide/Mg Hydroxide (Mylanta Ii) 30 ml PO Q6H PRN PRN PRN Reason: Gastric burning Albuterol Sulfate (Ventolin Aerosols) 2.5 mg INHALATION Q2H PRN PRN PRN Reason: dyspnea, wheezing Last Admin: 11/27/17 01:12 Dose: 2.5 mg Albuterol/Ipratropium (Duoneb) 3 ml INHALATION Q6HWA.RT [facility] Last Admin: 11/30/17 13:20 Dose: Not Given Amitriptyline HCl (Elavil) 100 mg PO QHS [facility] Last Admin: 11/29/17 20:14 Dose: 100 mg Atorvastatin Calcium (Lipitor) 10 mg PO QHS [facility] Last Admin: 11/29/17 20:14 Dose: 10 mg Carvedilol (Coreg) 3.125 mg PO BID [facility] Last Admin: 11/30/17 09:40 Dose: 3.125 mg Citalopram Hydrobromide (Celexa) 20 mg PO DAILY [facility] Last Admin: 11/30/17 09:41 Dose: 20 mg Clopidogrel Bisulfate (Plavix) 75 mg PO DAILY [facility] Last Admin: 11/30/17 09:41 Dose: 75 mg Donepezil HCl (Aricept) 5 mg PO QHS [facility] Last Admin: 11/29/17 20:14 Dose: 5 mg Famotidine (Pepcid) 20 mg PO BID [facility] Last Admin: 11/30/17 09:40 Dose: 20 mg Haloperidol Lactate (Haldol) 2 mg IV Q4H PRN PRN PRN Reason: AGITATION Last Admin: 11/29/17 20:10 Dose: 2 mg Hydralazine HCl (Apresoline) 10 mg PO 4X/DAY PRN PRN Reason: SBP >160 Last Admin: 11/26/17 05:21 Dose: 10 mg Magnesium Hydroxide (Milk Of Magnesia) 30 ml PO DAILY PRN PRN PRN Reason: Constipation Last Admin: 11/26/17 15:33 Dose: 30 ml Morphine Sulfate () 1 - 2 mg IV Q4H PRN PRN PRN Reason: PAIN Last Admin: 11/30/17 13:07 Dose: 1 mg Ondansetron HCl (Zofran) 4 mg IV Q8H PRN PRN PRN Reason: NAUSEA Promethazine HCl (Phenergan) 12.5 mg IV Q6H PRN PRN PRN Reason: NAUSEA/VOMITING Sodium Chloride () 5 - 30 ml IV UD PRN PRN Reason: SALINE FLUSH Last Admin: 11/30/17 13:07 Dose: 10 ml Medical Necessity - Tobacco Use Smoking Status: Current some day smoker Tobacco Use: Cigarettes Assessment/Plan All Active Problems Fall (Acute) Concussion (Acute) SDH (subdural hematoma) (Acute) Debility (Acute) Right arm pain (Acute) Abnormal ECG (Acute) Patient is an 82-year-old lady with multiple comorbidities including COPD, previous CVA who presented following a fall. On further questioning patient admitted to losing her balance and falling into objects 1. Acute mechanical fall with scalp contusion and hematoma: Patient admitted to a regular nursing floor requested for PT OT eval and executive secretary social welfare to assist with discharge planning. Repeat CT head does not show evidence of an acute hemorrhage but reduction in left frontal superior soft tissue swelling. Avoid benzodiazepines. Patient had CT head and MRI showed left frontal scalp hematoma. 2. Altered mental status probably acute encephalopathy secondary to metabolic encephalopathy/polypharmacy on baseline advanced dementia: Avoid benzodiazepine. Patient on one-to-one watch. Started on Aricept. Patient needs redirection and orientation. UA is negative. Urine culture does not show organism. UTI ruled out Ataxia inpatient history of previous CVA: MRI did not show acute stroke/CVA 3. Chronic systolic heart failure with an ejection fraction of 35% 4. COPD currently not in exacerbation 5. Hypertension-blood pressure controlled, home medications continued with dose adjustment as needed 6. Dyslipidemia-patient is on statin therapy, continued at home dose 7. Degenerative joint disease 8. Depression with anxiety patient is on Celexa 9. Tobacco dependence counseled on cessation, offered nicotine patch for tobacco cravings 10. DVT prophylaxis SCDs for now Microbiology Past 72 Hours 11/27/17 20:33 Urine Catheter - Catheter Urine Culture - Final Culture exhibits no growth. Clinical Impression(s) from Imaging Studies Brain CT 11/24/17 14:46 IMPRESSION: Chronic involutional changes of the brain. Scalp hematoma overlying the left frontal bone. Hip/Pelvis X-Ray 11/24/17 14:47 IMPRESSION: Mild degree of degenerative changes of the left hip. No fracture or dislocation is seen. Status post laminectomy and fusion at the L4-L5 level. Cervical Spine CT 11/24/17 14:50 IMPRESSION: Multilevel degenerative changes, as described above. No acute abnormality is seen. Lumbar Spine X-Ray 11/24/17 14:51 IMPRESSION: Degenerative changes of the spine, as detailed above. Prior laminectomy at the L4-L5 level with interpedicular screw fixation. Grade 2 anterior listhesis of L4 on L5. Elbow X-Ray 11/24/17 15:20 IMPRESSION: Posterior soft tissue laceration. Brain MRI 11/25/17 08:29 IMPRESSION: Involutional changes of the brain, as described above. There is mild small vessel ischemic white matter disease. There is left frontal scalp hematoma. Active Medications Acetaminophen (Tylenol) 650 mg PO Q6H PRN PRN PRN Reason: Non-cardiac pain (mod-severe) Last Admin: 11/25/17 04:42 Dose: 650 mg Hydrocodone Bitart/Acetaminophen ([place] 5mg-325mg) 1 - 2 tablet PO Q6H PRN PRN PRN Reason: Moderate-severe pain Al Hydroxide/Mg Hydroxide (Mylanta Ii) 30 ml PO Q6H PRN PRN PRN Reason: Gastric burning Albuterol Sulfate (Ventolin Aerosols) 2.5 mg INHALATION Q2H PRN PRN PRN Reason: dyspnea, wheezing Last Admin: 11/27/17 01:12 Dose: 2.5 mg Albuterol/Ipratropium (Duoneb) 3 ml INHALATION Q6HWA.RT [facility] Last Admin: 11/30/17 13:20 Dose: Not Given Amitriptyline HCl (Elavil) 100 mg PO QHS [facility] Last Admin: 11/29/17 20:14 Dose: 100 mg Atorvastatin Calcium (Lipitor) 10 mg PO QHS [facility] Last Admin: 11/29/17 20:14 Dose: 10 mg Carvedilol (Coreg) 3.125 mg PO BID [facility] Last Admin: 11/30/17 09:40 Dose: 3.125 mg Citalopram Hydrobromide (Celexa) 20 mg PO DAILY [facility] Last Admin: 11/30/17 09:41 Dose: 20 mg Clopidogrel Bisulfate (Plavix) 75 mg PO DAILY [facility] Last Admin: 11/30/17 09:41 Dose: 75 mg Donepezil HCl (Aricept) 5 mg PO QHS [facility] Last Admin: 11/29/17 20:14 Dose: 5 mg Famotidine (Pepcid) 20 mg PO BID [facility] Last Admin: 11/30/17 09:40 Dose: 20 mg Haloperidol Lactate (Haldol) 2 mg IV Q4H PRN PRN PRN Reason: AGITATION Last Admin: 11/29/17 20:10 Dose: 2 mg Hydralazine HCl (Apresoline) 10 mg PO 4X/DAY PRN PRN Reason: SBP >160 Last Admin: 11/26/17 05:21 Dose: 10 mg Magnesium Hydroxide (Milk Of Magnesia) 30 ml PO DAILY PRN PRN PRN Reason: Constipation Last Admin: 11/26/17 15:33 Dose: 30 ml Morphine Sulfate () 1 - 2 mg IV Q4H PRN PRN PRN Reason: PAIN Last Admin: 11/30/17 13:07 Dose: 1 mg Ondansetron HCl (Zofran) 4 mg IV Q8H PRN PRN PRN Reason: NAUSEA Promethazine HCl (Phenergan) 12.5 mg IV Q6H PRN PRN PRN Reason: NAUSEA/VOMITING Sodium Chloride () 5 - 30 ml IV UD PRN PRN Reason: SALINE FLUSH Last Admin: 11/30/17 13:07 Dose: 10 ml Code Visit Inpatient E&M: 30640 Subs Hosp L3
[2017-11-30 16:17] VITALS: BP 116/72; PULSE 89; RESP 18; TEMP 37.2; O2SAT 96
[2017-11-30 21:25] VITALS: BP 114/56; PULSE 79; RESP 18; TEMP 37.1; O2SAT 96
[2017-11-30] MEDS: Atorvastatin Calcium 10 MG Tablet PO (22:33)
[2017-11-30] MEDS: Donepezil HCl 5 MG Tablet PO (22:33)
[2017-11-30] MEDS: Amitriptyline 100 MG Tablet PO (22:33)
[2017-12-01] MEDS: Haloperidol Lactate 5 MG/ML Vial 2 MG IV (00:04)
[2017-12-01] MEDS: 0.9% NaCl Peripheral Flush Adult/Peds IV (00:05)
[2017-12-01 03:19] VITALS: BP 118/70; PULSE 88; RESP 18; TEMP 36.6; O2SAT 95
[2017-12-01 07:58] VITALS: PULSE 85; RESP 16; O2SAT 96
[2017-12-01] MEDS: Ipratropium/Albuterol Sulfate 3 ML AMPUL.NEB INHALATION ×2 (07:58→21:12)
[2017-12-01 09:22] VITALS: BP 96/57; PULSE 87; RESP 22; TEMP 36.9; O2SAT 94
[2017-12-01] MEDS: Citalopram 20 MG Tablet PO (09:59)
[2017-12-01] MEDS: Clopidogrel Bisulfate 75 MG Tablet PO (10:00)
[2017-12-01] MEDS: Famotidine 20 MG Tablet PO ×2 (10:00→22:29)
--- NOTE | 2017-12-01 10:22 | NURSING ---
called Dr. Gan office at pt's request as she's concerned she has an appointment today for her hearing. Confirmed with Dr. Austin's office she has no upcoming appointment.
--- NOTE | 2017-12-01 10:24 | PCM.PN.HOSP ---
Patient Problems: Active and Suspected Problems Fall (Acute) Concussion (Acute) Subjective: Patient was seen and examined. Remains confused. Waiting for insurance precertification for discharge. Objective: Physical exam: General: Alert, Oriented x3, Cooperative HEENT: Atraumatic, PERRLA, EOMI, Normocephalic, - - Left periorbital bruise and left frontal hematoma, improving Neck: Supple, No JVD, Negative Carotid Bruits Lungs: Clear to auscultation, Normal air movement Cardiovascular: Regular rate, Normal S1, Normal S2, No murmurs Abdomen: Bowel Sounds Present, Soft, Non Tender Extremities: Capillary Refill Less than 3 Seconds, Edema Skin: No rashes, No breakdown Musculoskeletal: No Tenderness to Palpation of Joints or Extremities, Arthritic Changes, Muscle Wasting Neurological: Cranial nerves II-XII grossly intact Psych/Mental Status: Normal Affect, Appropriate Vitals/I&O's: Vital Signs Temp Pulse Resp BP Pulse Ox 98.4 F 87 22 H 96/57 L 94 12/01/17 09:22 12/01/17 09:22 12/01/17 09:22 12/01/17 09:22 12/01/17 09:22 Oxygen Delivery Method Room Air Weight: 65.9 kg Body Mass Index (BMI) 21.4 Intake and Output for Last 24 Hours 11/29/17 11/30/17 12/01/17 23:59 23:59 23:59 Intake Total 1250 / 1250 970 / 970 120 / 120 Balance 1250 / 1250 970 / 970 120 / 120 Microbiology Past 72 Hours 11/27/17 20:33 Urine Catheter - Catheter Urine Culture - Final Culture exhibits no growth. Current Medications Acetaminophen (Tylenol) 650 mg PO Q6H PRN PRN PRN Reason: Non-cardiac pain (mod-severe) Last Admin: 11/25/17 04:42 Dose: 650 mg Hydrocodone Bitart/Acetaminophen ([place] 5mg-325mg) 1 - 2 tablet PO Q6H PRN PRN PRN Reason: Moderate-severe pain Al Hydroxide/Mg Hydroxide (Mylanta Ii) 30 ml PO Q6H PRN PRN PRN Reason: Gastric burning Albuterol Sulfate (Ventolin Aerosols) 2.5 mg INHALATION Q2H PRN PRN PRN Reason: dyspnea, wheezing Last Admin: 11/27/17 01:12 Dose: 2.5 mg Albuterol/Ipratropium (Duoneb) 3 ml INHALATION Q6HWA.RT [facility] Last Admin: 12/01/17 07:58 Dose: 3 ml Amitriptyline HCl (Elavil) 100 mg PO QHS [facility] Last Admin: 11/30/17 22:33 Dose: 100 mg Atorvastatin Calcium (Lipitor) 10 mg PO QHS [facility] Last Admin: 11/30/17 22:33 Dose: 10 mg Carvedilol (Coreg) 3.125 mg PO BID [facility] Last Admin: 11/30/17 22:33 Dose: 3.125 mg Citalopram Hydrobromide (Celexa) 20 mg PO DAILY [facility] Last Admin: 12/01/17 09:59 Dose: 20 mg Clopidogrel Bisulfate (Plavix) 75 mg PO DAILY [facility] Last Admin: 12/01/17 10:00 Dose: 75 mg Donepezil HCl (Aricept) 5 mg PO QHS [facility] Last Admin: 11/30/17 22:33 Dose: 5 mg Famotidine (Pepcid) 20 mg PO BID [facility] Last Admin: 12/01/17 10:00 Dose: 20 mg Haloperidol Lactate (Haldol) 2 mg IV Q4H PRN PRN PRN Reason: AGITATION Last Admin: 12/01/17 00:04 Dose: 2 mg Hydralazine HCl (Apresoline) 10 mg PO 4X/DAY PRN PRN Reason: SBP >160 Last Admin: 11/26/17 05:21 Dose: 10 mg Magnesium Hydroxide (Milk Of Magnesia) 30 ml PO DAILY PRN PRN PRN Reason: Constipation Last Admin: 11/26/17 15:33 Dose: 30 ml Morphine Sulfate () 1 - 2 mg IV Q4H PRN PRN PRN Reason: PAIN Last Admin: 11/30/17 22:34 Dose: 1 mg Ondansetron HCl (Zofran) 4 mg IV Q8H PRN PRN PRN Reason: NAUSEA Promethazine HCl (Phenergan) 12.5 mg IV Q6H PRN PRN PRN Reason: NAUSEA/VOMITING Sodium Chloride () 5 - 30 ml IV UD PRN PRN Reason: SALINE FLUSH Last Admin: 12/01/17 00:05 Dose: 10 ml Medical Necessity - Tobacco Use Smoking Status: Current some day smoker Tobacco Use: Cigarettes Assessment/Plan All Active Problems Fall (Acute) Concussion (Acute) SDH (subdural hematoma) (Acute) Debility (Acute) Right arm pain (Acute) Abnormal ECG (Acute) 82-year-old female with multiple comorbidities who was admitted after a fall without loss of consciousness. 1. Acute mechanical fall with scalp contusion and hematoma, CT head and MRI of the head showed left frontal scalp hematoma, no intracranial hemorrhage, be managed conservatively 2. Acute metabolic encephalopathy/polypharmacy on baseline advanced dementia, and on Aricept, meds reviewed, will start tapering off amitriptyline 3. Recent Ataxia, h/o CVA, MRI of the brain did not show acute stroke, PT and OT evaluating and treating patient. 4. Chronic systolic heart failure with an ejection fraction of 35%, in acute exacerbation 5. COPD currently not in exacerbation 6. Hypertension-blood pressure controlled, home medications continued with dose adjustment as needed 7. Dyslipidemia-patient is on statin therapy, continued at home dose 8. Anxiety/depression, on Celexa 9. DVT ppx- SCDs Code Visit Inpatient E&M: 90319 Subs Hosp L2
[2017-12-01 12:16] VITALS: BP 115/73; PULSE 86; RESP 20; TEMP 36.3; O2SAT 97
[2017-12-01] MEDS: Carvedilol 3.125 MG TABLET PO ×2 (12:38→22:29)
--- NOTE | 2017-12-01 17:03 | CASEMGMT ---
Social Work Note SW received call from Kendra at [facility] stating that she is able to accept pt and will submit for pre-cert. Plan: [facility] pending pre-cert Cintia Phillips LITHOGRAPHIC ARTIST, MAINFRAME SYSTEMS PROGRAMMER
[2017-12-01 21:12] VITALS: PULSE 84; RESP 16
[2017-12-01 22:11] VITALS: BP 133/78; PULSE 78; RESP 18; TEMP 36.7; O2SAT 99
[2017-12-01] MEDS: Atorvastatin Calcium 10 MG Tablet PO (22:29)
[2017-12-01] MEDS: Amitriptyline 25 MG Tablet 50 MG PO (22:29)
[2017-12-01] MEDS: Donepezil HCl 5 MG Tablet PO (22:29)
[2017-12-01] MEDS: HYDROcodone Bitartrate/Apap 5/325 Tablet PO (22:30)
[2017-12-02] VITALS (7 sets, daily range): BP systolic 89–126; BP diastolic 59–80; PULSE 65–90; RESP 16–18; TEMP 36.4–37; O2SAT 93–98
[2017-12-02] MEDS: Ipratropium/Albuterol Sulfate 3 ML AMPUL.NEB INHALATION ×2 (07:17→12:54)
[2017-12-02] MEDS: Famotidine 20 MG Tablet PO (09:13)
[2017-12-02] MEDS: Citalopram 20 MG Tablet PO (09:13)
[2017-12-02] MEDS: Clopidogrel Bisulfate 75 MG Tablet PO (09:13)
--- NOTE | 2017-12-02 10:56 | CASEMGMT ---
Social Work Note SW received message from Kendra at [facility] informing this worker that pt's insurance is wanting PT/OT notes from yesterday. CHERYLE faxed updated clinicals to Kendra at [facility]. Plan: [facility] pending pre-cert Cintia Phillips MH TEACHER, TAX CREDIT LEASING CONSULTANT
[2017-12-02] MEDS: Carvedilol 3.125 MG TABLET PO (10:57)
--- NOTE | 2017-12-02 13:17 | CASEMGMT ---
Rec'd VM from Radha at [facility]. Patient's request to go to SNF was sent to medical diagnostic radiographer for review. , ext [phone]. CHERYLE Chamberlain updated of same. Yumiko Lovett LPN Clinical Support
--- NOTE | 2017-12-02 15:15 | CASEMGMT ---
Social Work Note CHERYLE received call from Kendra at [facility] stating that pre-cert has been obtained and pt is able to discharge today. CHERYLE updated physician of this. CHERYLE faxed completed discharge paperwork to [facility] including transfer to extended care facility, signed medication list and any scripts. Originals in SNF folder and copy on pt's chart. CHERYLE completed PAS/RR in HENS. Originals in SNF folder and copy on pt's chart. CHERYLE set up transportation through [facility] via cot for 6:00pm. Transportation form on SNF folder and copy on pt's chart. CHERYLE placed a call to pt's daughter Aleta and updated her on discharge and pre-cert. CHERYLE explained to Aleta that pre-cert was submitted again on Friday and at that time [facility] didn't have beds available and that per pt's brother Connor pt had been at [facility] before. CHERYLE explained that Medicaid application will be sent to SNF with pt and if pt requires parts counterman care then staff at [facility] can assist pt with completing application. CHERYLE placed Medicaid Application in SNF folder. CHERYLE explained to Aleta that if she is thinking pt may need parts counterman care then [facility] wouldn't be a good option for pt as [facility] is short term rehabilitation. Aleta states understanding. CHERYLE updated Charge Nurse Corrina and RN Ventura of transportation time. Plan: Pt to discharge to [facility] today for rehabilitation via cot with [facility] transporting. Cintia Phillips SENIOR LOSS CONTROL SPECIALIST, [employer]
--- NOTE | 2017-12-02 15:54 | PCM.TXEXTCAR ---
- Diet 11/24/17 17:55 Diet: Cardiac/Low Cholesterol Food consistency:: Regular Liquid Consistency:: Regular/Thin - Routine Orders/Code Status Routine Lab Work: CBC - in 3 days, BMP - in 3 days Code Status: Full Code - Wound(s) Left Forehead Wound Type: Skin Tear Dressing Change: Adaptic with dry dressing Left Elbow Wound Type: Skin Tear Dressing Change: Mepilex flex Left Heel Wound Type: scabs Right index finger Wound Type: Skin Tear B/L toes Wound Type: scabs - Therapies Weight Bearing: Weight bearing as tolerated Physical Therapy: Eval and Treat Occupational Therapy: Eval and Treat - Allergies/Procedures Done in Hospital Allergies/Adverse Reactions: Allergies Sulfa (Sulfonamide Antibiotics) Allergy (Severe, Verified 11/24/17 14:36) Hives gabapentin Adverse Reaction (Verified 11/24/17 14:36) Other zolpidem [From Ambien] Adverse Reaction (Verified 11/24/17 14:36) Unknown - Type of Care/Length of Stay Estimated LOS: Convalescent Care Less Than 30 days Type of Care Needed: Skilled Rehab Potential: Fair Prognosis: Fair - Additional Orders/Day of Discharge Day of Discharge: 12/02/17 - Dietary and Speech Recommendations Dietitian Recommendations/Changes: Rec cardiac/low sodium; vegetarian per pt preference. - Follow Up Care Primary Care Physician: Natalee Spaulding MD [Primary Care Provider] - 3-5 Days if not improving Please follow up with your Primary Care Physician in: with 2 weeks
--- NOTE | 2017-12-02 16:04 | DS.PCM_ITS ---
Discharge Date and Diagnosis Date of Admission: 11/24/17 Date of Discharge: 12/02/17 - Primary Discharge Diagnosis Active and Suspected Problems Fall (Acute) Concussion (Acute) Acute metabolic encephalopathy PolyPharmacy - Secondary Discharge Diagnosis Chronic Problems HTN (hypertension) (Chronic) Stroke (Chronic) CHF (congestive heart failure) (Chronic) COPD (chronic obstructive pulmonary disease) (Chronic) CAD (coronary artery disease) (Chronic) HLD (hyperlipidemia) (Chronic) Cardiomyopathy (Chronic) Hospital Course and Treatment Imaging Results: Clinical Impression(s) from Imaging Studies Brain CT 11/24/17 14:46 IMPRESSION: Chronic involutional changes of the brain. Scalp hematoma overlying the left frontal bone. Electronically Signed: Francisco Hairston MD at 15:49 EDT Tel [phone], Service support , Hip/Pelvis X-Ray 11/24/17 14:47 IMPRESSION: Mild degree of degenerative changes of the left hip. No fracture or dislocation is seen. Status post laminectomy and fusion at the L4-L5 level. Electronically Signed: Francisco Hairston MD at 16:04 EDT Tel [phone], Service support , Cervical Spine CT 11/24/17 14:50 IMPRESSION: Multilevel degenerative changes, as described above. No acute abnormality is seen. Electronically Signed: Francisco Hairston MD at 15:52 EDT Tel [phone], Service support , Lumbar Spine X-Ray 11/24/17 14:51 IMPRESSION: Degenerative changes of the spine, as detailed above. Prior laminectomy at the L4-L5 level with interpedicular screw fixation. Grade 2 anterior listhesis of L4 on L5. Electronically Signed: Francisco Hairston MD at 16:04 EDT Tel [phone], Service support , Elbow X-Ray 11/24/17 15:20 IMPRESSION: Posterior soft tissue laceration. Electronically Signed: Francisco Hairston MD at 15:57 EDT Tel [phone], Service support , Brain MRI 11/25/17 08:29 IMPRESSION: Involutional changes of the brain, as described above. There is mild small vessel ischemic white matter disease. There is left frontal scalp hematoma. Electronically Signed: Monica Bautista MD at 13:12 EDT cf, Service support , Brain CT 11/28/17 10:07 IMPRESSION: Atrophy. No visualized evidence of an acute hemorrhage. Reduction in the left frontal superficial soft tissue swelling when compared to prior study. Electronically Signed: Eli Powell MD at 14:56 EDT Tel , Service support , Consultations 11/24/17 18:49 Consult: Onc/Wound/clinical informatics spec Routine Comment: Operations: None Procedures: None Summary of Care Provided: 82-year-old female with multiple comorbidities who was admitted after a fall without loss of consciousness. 1. Acute mechanical fall with scalp contusion and hematoma, CT head and MRI of the head showed left frontal scalp hematoma, no intracranial hemorrhage, managed conservatively. 2. Acute metabolic encephalopathy/polypharmacy on baseline advanced dementia, started on Aricept, meds reviewed, start tapering off amitriptyline 3. Recent Ataxia, h/o CVA, MRI of the brain did not show acute stroke, seen by PT and OT 4. Chronic systolic heart failure with an ejection fraction of 35%, stable, was not in acute exacerbation 5. COPD, stable 6. Hypertension, controlled 7. Dyslipidemia, on statin. 8. Anxiety/depression, on Celexa Discharge Diet: Low fat/ Low Cholesterol, 2000 mg Sodium Diet Discharge Activity: Return to Normal Activity Home Medications: Medications to take at Discharge Albuterol Aerosols [Ventolin Aerosols] 2.5 mg INHALATION Q4HWA.RT 04/17/16 Carvedilol [Coreg (Beta Enriqueta)] 3.125 mg PO BID 04/17/16 Glucosam/Hernan-Msm1/C/Francisco/Bosw [Osteo Bi-Flex Caplet] 1 tab PO DAILY 11/07/16 Atorvastatin Calcium [Lipitor] 10 mg PO QHS 11/24/17 Citalopram [Celexa] 20 mg PO DAILY 11/24/17 Clopidogrel Bisulfate [Plavix] 75 mg PO DAILY 11/24/17 Acetaminophen [Tylenol Tablet] 650 mg PO Q6H PRN PRN tablet 12/02/17 Albuterol Aerosols [Ventolin Aerosols] 2.5 mg INHALATION Q2H PRN PRN vial.neb. 12/02/17 Amitriptyline HCl [Elavil] 50 mg PO QHS tablet 12/02/17 Donepezil HCl [Aricept] 5 mg PO QHS tablet 12/02/17 Hydrocodone Bitart/Apap 5-325 [[place] 5/325] 1 tab PO Q6H PRN PRN 5 Days #20 tab 12/02/17 Ipratropium/Albuterol Sulfate [Duoneb] 3 ml INHALATION Q6HWA.RT PRN ampul.neb 12/02/17 hydrALAZINE [Apresoline] 10 mg PO 4X/DAY PRN tablet 12/02/17 Following Prescrptions Were Given to Patient: Hydrocodone Bitart/Apap 5-325 [[place] 5/325] 1 tab PO Q6H PRN PRN 5 Days #20 tab PRN Reason: Moderate-severe pain Primary Care Physician: Natalee Spaulding MD [Primary Care Provider] - 3-5 Days if not improving Please follow up with your Primary Care Physician in: with 2 weeks Patient Instructions: ED Mechanical Fall, ED Head Injury Closed Disposition: Residential facility Minutes spent on discharge:: 40 Patient Condition:: Stable Medical Necessity - Tobacco Use Smoking Status: Current some day smoker Tobacco Use: Cigarettes Meaningful Use Info Meaningful Use Diagnoses (Choose all that apply): None applicable Code Visit Inpatient E&M: 19960 Disch Hosp
--- NOTE | 2017-12-02 16:24 | NURSING ---
Report called to Shagufta ZIEGLER
== END 2017-12-02 18:00 | disposition skilled nursing facility (03) ==
LOC: ED 17:34 → MS3 17:52
PROVIDERS: Internal Medicine; Admitting Provider Family Medicine; Emergency Provider Emergency Medicine; Family Provider Internal Medicine; PCP Internal Medicine; Visit Provider Internal Medicine
DX: S06.0X9A Concussion with loss of consciousness of unspecified duration, initial encounter (principal); W10.1XXA Fall (on)(from) sidewalk curb, initial encounter; Y93.9 Activity, unspecified; Y92.531 Health care provider office as the place of occurrence of the external cause; S00.81XA Abrasion of other part of head, initial encounter; R40.2410 Glasgow coma scale score 13-15, unspecified time; S51.012A Laceration without foreign body of left elbow, initial encounter; S70.02XA Contusion of left hip, initial encounter; Z79.02 Long term (current) use of antithrombotics/antiplatelets; Z79.899 Other long term (current) drug therapy; I11.0 Hypertensive heart disease with heart failure; I50.22 Chronic systolic (congestive) heart failure; J44.9 Chronic obstructive pulmonary disease, unspecified; I25.10 Atherosclerotic heart disease of native coronary artery without angina pectoris; E78.5 Hyperlipidemia, unspecified; F41.9 Anxiety disorder, unspecified; F32.9 Major depressive disorder, single episode, unspecified; F17.210 Nicotine dependence, cigarettes, uncomplicated; R94.31 Abnormal electrocardiogram [ECG] [EKG]; G93.41 Metabolic encephalopathy; I69.393 Ataxia following cerebral infarction
CPT/HCPCS: 36415; 70450; 70551; 72100; 72125; 73080; 73502; 80048; 81001; 83735; 85025; 85027; 87086; 94640; 96361; 96372; 96374; 96375; 96376; 97116; 97162; 97166; 97530; 97535; 97802; 99218; 99284; J7030; Q9967; A4216; G0378

== ENCOUNTER → 2018-06-03 13:34 | Outpatient (CLI) | payer MEDICARE, SELFPAY ==
[2018-06-11 04:07] LABS: Alternaria tenuis <0.10 kU/L (Class 0); Ash, White <0.10 kU/L (Class 0); Aspergillus fumigatus <0.10 kU/L (Class 0); Bermuda Grass <0.10 kU/L (Class 0); Birch <0.10 kU/L (Class 0); Black Walnut <0.10 kU/L (Class 0); Cat Hair / Dander,Stand 1.13 kU/L (Class II); Cedar, Mountain <0.10 kU/L (Class 0); Cladosporium herbarum <0.10 kU/L (Class 0); Cockroach, American <0.10 kU/L (Class 0); Cottonwood <0.10 kU/L (Class 0); D farinae Mite <0.10 kU/L (Class 0); D pteronyssinus <0.10 kU/L (Class 0); Dog Epithelia 0.14 kU/L (Class 0/I); Elm, American White <0.10 kU/L (Class 0); Maple/Box Elder <0.10 kU/L (Class 0); Mulberry, White <0.10 kU/L (Class 0); Oak, White <0.10 kU/L (Class 0); Pecan <0.10 kU/L (Class 0); Penicillium Notatum <0.10 kU/L (Class 0); Pigweed, Rough <0.10 kU/L (Class 0); Ragweed, Short/Common <0.10 kU/L (Class 0); Russian Thistle <0.10 kU/L (Class 0); Sheep Sorrel <0.10 kU/L (Class 0); Sycamore, American <0.10 kU/L (Class 0); Timothy Grass <0.10 kU/L (Class 0)
[2018-06-12 17:00] LABS: Immunoglobulin E 11 IU/mL (6-495); Mouse Urine <0.10 kU/L (Class 0)
== END ==
PROVIDERS: Family Provider Internal Medicine; PCP Internal Medicine; Referring Provider Otolaryngology; Visit Provider Otolaryngology
DX: T78.40XA Allergy, unspecified, initial encounter (principal)
CPT/HCPCS: 36415; 82785; 86003

== ENCOUNTER → 2018-07-14 | Outpatient (CLI) | payer MEDICARE, SELFPAY ==
[2018-06-26 15:34] VITALS: BMI 22.9
--- NOTE | 2018-07-14 13:03 | ECHOD_ITS ---
Reason For Study: TIA/CVA Procedure This was a 2D Doppler, Color Flow transthoracic echocardiogram. The exam was of adequate technical quality. Exam performed in department. Left Ventricle Normal LV size. Sigmoid septum. Left ventricular systolic function is normal. The estimated ejection fraction is 55 %. The global longitudinal strain = -20 % (normal). Diastolic function is indeterminate. No regional wall motion abnormalities noted. Right Ventricle Normal RV size. Normal systolic function. Atria The left atrium is mildly enlarged. Normal right atrium. No doppler evidence for ASD. Mitral Valve There is mild mitral annular calcification. Extension of the mitral annular calcification onto the posterior mitral valve leaflet. Mild diffuse mitral valve thickening. Mild (1+) mitral valve insufficiency. Tricuspid Valve Normal tricuspid valve. Trivial tricuspid valve insufficiency. Right ventricular systolic pressure estimated to be 25 mmHg. Aortic Valve Trisinus/trileaflet aortic valve. Mild focal aortic valve calcification. Pulmonic Valve The pulmonic valve is not well visualized. Mild (1+) pulmonic valve insufficiency. Great Vessels Normal sized aortic root. Pericardium/Pleural No pericardial effusion. MMode/2D Measurements & Calculations LVIDd: 3.0 cm IVSd: 1.1 cm Ao root diam: 3.8 cm LVIDs: 2.0 cm LVPWd: 0.98 cm RVDd: 3.2 cm FS: 34.3 % LAV(MOD-bp): 51.1 ml EDV(MOD-sp4): 63.2 ml EDV(MOD-sp2): 58.3 ml LAV(MOD-bp) Indexed: 28.2 ml/m2 ESV(MOD-sp4): 39.0 ml EF(MOD-sp2): 49.4 % LAV(MOD-sp2): 46.3 ml EF(MOD-sp4): 38.3 % LAV(MOD-sp4): 50.4 ml SV(MOD-sp4): 24.2 ml SV(MOD-sp2): 28.8 ml LA A4 area: 17.4 cm2 LA dimension(2D): 3.5 cm RA A4 area: 11.9 cm2 Doppler Measurements & Calculations MV E max waldo: 76.4 cm/sec Lat Peak E' Waldo: 7.1 cm/sec Med Peak E' Waldo: 3.6 cm/sec MV A max waldo: 98.4 cm/sec E/E' lat: 10.7 E/E' med: 21.5 MV E/A: 0.78 Ao V2 max: 159.9 cm/sec LV V1 max: 101.3 cm/sec PA V2 max: 96.1 cm/sec Ao max P.2 mmHg LV V1 max P.1 mmHg TR max waldo: 236.2 cm/sec TR max P.3 mmHg Interpretation Summary Left ventricular systolic function is normal. The estimated ejection fraction is 55 %. The global longitudinal strain = -20 % (normal). Sigmoid septum. The left atrium is mildly enlarged. There is mild mitral annular calcification. Extension of the mitral annular calcification onto the posterior mitral valve leaflet. Mild diffuse mitral valve thickening. Mild (1+) mitral valve insufficiency. Trivial tricuspid valve insufficiency. Mild focal aortic valve calcification. Mild (1+) pulmonic valve insufficiency. Right ventricular systolic pressure estimated to be 25 mmHg. Diastolic function is indeterminate. Ordering Physician: Asad Rogers Referring Physician: Natalee Spaulding M.D. Performed By: Ilsa Bermudez RDCS
== END | disposition home or self-care (01) ==
LOC: CVS 13:02
PROVIDERS: Family Provider Internal Medicine; PCP Internal Medicine; Referring Provider Internal Medicine Cardiovascular Disease; Visit Provider Internal Medicine Cardiovascular Disease
DX: I25.10 Atherosclerotic heart disease of native coronary artery without angina pectoris (principal)
CPT/HCPCS: 93306

== ENCOUNTER → 2019-08-10 09:39 | Outpatient (CLI) | payer MEDICARE, SELFPAY ==
[2019-08-04 09:07] VITALS: BMI 21.4
[2019-08-10 11:01] LABS: AST(SGOT) 18 U/L (15-37); Alanine Aminotransfer ALT/SGPT 16 U/L (13-56); Albumin, Serum 3.4 g/dL (3.2-5.0); Alkaline Phosphatase 84 U/L (45-117); Cholesterol 185 mg/dL (200); High Density Lipoprotein 72 mg/dL; Protein, Total 6.4 g/dL (6.4-8.2); Triglycerides 151 mg/dL; Very Low Density Lipoprotein 30 mg/dL (5-40)
--- OUTSIDE RECORDS SUMMARY | 2019-12-28 17:01 | XMS RPT_ITS | CCD ---
:1935 External Reference #:[id number] Author Organization [facility] Care Team Providers Name Role Phone Alayna ZIEGLER, Zhang Unavailable Unavailable JOSE FRANCISCO, (FEED RESEARCH AIDE) Unavailable Unavailable JOSE FRANCISCO, (FEED RESEARCH AIDE) Unavailable Unavailable NO REFERRING DR Unavailable Unavailable PAPOURAS Unavailable Unavailable PAPOURAS Unavailable Unavailable NILDA Unavailable Unavailable PAPOURAS Unavailable Unavailable SUZANNE, Z Unavailable Unavailable PAPOURAS Unavailable Unavailable NO REFERRING DR Unavailable Unavailable JOSE FRANCISCO M Unavailable Unavailable Mehreen FELTON Unavailable Unavailable Noy Valdez Primary Care Provider Allergies Reported Allergen Reaction(s) Severity Date of Onset Location gabapentin Other: See Comments 07-18-2014 - [facility] Translations: [ Other [place] GABAPENTIN, Repository GABAPENTIN] Sulfonamides hives Severe, Severe 12-27-2015 - [facility] (Antibiotic) Group ([id number]) Sulfonamides Hives 08-07-2006 - [facility] (Antibiotic) Other [place] Translations: [ Repository SULFA (SULFONAMIDE ANTIBIOTICS)] Sulfonamides [facility] (Antibiotic) [facility] Translations: [ Repository SULFA (SULFONAMIDES)] zolpidem Other: See Comments 12-28-2012 - [facility] Translations: [ Other [place] ZOLPIDEM] Repository Medications Medication Name Sig Date Prescriber Location acetaminophen ACETAMINOPHEN 325 MG 04-17-2016 [facility] TABS As needed Group ([id number]) ACETAMINOPHEN [id number] Bernadette Marin RN acetaminophen / oxyCODONE-acetaminoph 10-29-2019 - [facility] oxyCODONE en (PERCOCET) 12-28-2019 Group ( 17614) mg tablet Indications: Leg pain, right , Pain in the muscles , Spinal stenosis of lumbar region, unspecified whether neurogenic claudication present Take 1 tablet by mouth twice daily as needed for up to 30 days. as needed Do not start before November 28, 2019. 60 tablet 0 11/28/2019 12/28/2019 Active OXYCODONE-ACETAMINOPHEN 5-325 MG TABS One 12-27-2015 [facility] (16133) tablet by mouth every 6 hours as needed OXYCODONE-ACETAMINOPHEN [id number] Radha Figueroa RN Comment: Take 1 tablet by mouth twice daily as needed for up to 30 days. as needed Do not start before November 152019. Take 1 tablet by mouth twice daily as needed for up to 30 days. as needed Do not start before October 29, 2019. albuterol albuterol (PROVENTIL) 2.5 01-27-2018 [facility]am D [facility] mg /3 mL (0.083 %) (74284) nebulizer solution Indications: Pulmonary emphysema, unspecified emphysema type (HCC) , COPD, frequent exacerbations (HCC) Use 3 mL via nebulizer three times daily as needed. OVER 5-15 MINUTES. FOR WHEEZING AND SHORTNESS OF BREATH. 25 Vial 11 01/27/2018 Active albuterol HFA (PROVENTIL HFA, 01-27-2018 Sriram D [facility] VENTOLIN HFA) 90 mcg/actuation ( 39182) inhaler Indications: Pulmonary emphysema, unspecified emphysema type (HCC) , COPD, frequent exacerbations (HCC) Inhale 2 Puffs as instructed every 6 hours as needed. 1 Inhaler 1 01/27/2018 Active VENTOLIN HFA 108 (90 Base) 12-27-2015 [facility] MCG/ACT AERS 2 puff inhalation ( 54193) every 4 hrs as needed ALBUTEROL SULFATE [id number] Radha Figueroa RN Comment: Inhale 2 Puffs as instructed every 6 hours as needed. Use 3 mL via nebulizer three times daily as needed. OVER 5-15 MINUTES. FOR WHEEZING AND SHORTNESS OF BR EATH. albuterol HFA albuterol HFA 11-26-2019 Irvin ([employer]illet Assembler) [facility] (PROVENTIL HFA, (PROVENTIL HFA, [place] ([id number]) VENTOLIN HFA) 90 VENTOLIN HFA) 90 mcg/actuation inhaler mcg/actuation inhaler Indications: Pulmonary emphysema, unspecified emphysema type (HCC) , COPD, frequent exacerbations (HCC) Inhale 2 Puffs as instructed every 6 hours as needed. 3 g 3 11/26/2019 Active albuterol HFA (PROVENTIL 11-18-2019 - Irvin (Billet Assembler) [facility] HFA, VENTOLIN HFA) 90 11-26-2019 (13352) mcg/actuation inhaler Indications: Pulmonary emphysema, unspecified emphysema type (HCC) , COPD, frequent exacerbations (HCC) Inhale 2 Puffs as instructed every 6 hours as needed. 3 g 3 11/18/2019 11/26/2019 Discontinued Comment: Inhale 2 Puffs as instructed every 6 hours as needed. amitriptyline amitriptyline (ELAVIL) 50 mg 07-22-2019 Irvin ([employer]illet Assembler) [facility] tablet Indications: [facility] (4 4691) Radiculopathy with lower extremity symptoms , Spinal stenosis, unspecified spinal region , Psychophysiological insomnia , Polypharmacy Take 1 tablet by mouth daily at bedtime. May take extra half pill nightly as needed for sleep 120 tablet 3 07/22/2019 Active AMITRIPTYLINE HCL 100 MG TABS One tablet by 12-27-2015 [facility] (64919) mouth at bedtime AMITRIPTYLINE HCL [id number] Radha Figueroa RN Comment: Take 1 tablet by mouth daily at bedtime. May take extra half pill nightly as needed for sleep aspirin ASPIRIN EC 81 MG TBEC 12-27-2015 - [facility] One tablet by mouth 04-17-2016 Group (4 [id number]) daily ASPIRIN [id number] Bernadette Marin RN atorvastatin atorvastatin 02-02-2019 [facility] (LIPITOR) 10 mg Group (95859 ) tablet Take 1 tablet by mouth once daily. 90 tablet 3 02/02/2019 Active ATORVASTATIN CALCIUM 80 MG TABS One tablet 12-27-2015 [facility] (21954) by mouth daily ATORVASTATIN CALCIUM [id number] Bernadette Marin RN Comment: Take 1 tablet by mouth once daily. Bisacodyl bisacodyl EC (DULCOLAX, 10-13-2018 [facility] BISACODYL,) 5 mg EC tablet ( 30075) Indications: Altered bowel habits Take two (2) tablets, at the designated times, as explained on the instruction sheet provided. 4 tablet 0 10/13/2018 Active Comment: Take two (2) tablets, at the designated times, as explained on the instruction sheet provided. Blood Pressure Blood Pressure Cuff - 06-02-2017 [facility] D [facility] Cuff - Home Use Home Use Indications: (44 195) Labile blood pressure BLOOD PRESSURE CUFF FOR HOME USE. DX: LABILE BLOOD PRESSURE R09.89 1 Device 0 06/02/2017 Active Blood Pressure Cuff - Home Use 06-02-2017 [facility] (18547) Indications: Labile blood pressure BLOOD PRESSURE CUFF FOR HOME USE. DX: LABILE BLOOD PRESSURE R09.89 1 Device 0 06/02/2017 Active Blood Pressure Cuff - Home Use 06-02-2017 [facility] D [facility] (30345) Indications: Labile blood pressure BLOOD PRESSURE CUFF FOR HOME USE. DX: LABILE BLOOD PRESSURE R09.89 1 Device 0 06/02/2017 Active Comment: BLOOD PRESSURE CUFF FOR HOME USE. DX: LABILE BLOOD PRESSURE R09.89 carvedilol carvedilol (COREG) 3.125 mg 10-20-2019 [facility] tablet Indications: (91229) Atherosclerosis of coronary artery [place] heart without angina pectoris, unspecified vessel or lesion type , Decreased left ventricular function Take 1 tablet by mouth twice daily. 180 tablet 3 10/20/2019 Active CARVEDILOL 3.125 MG TABS One tablet by mouth 12-27-2015 [facility] (17895) twice daily CARVEDILOL [id number] Radha Figueroa RN Comment: Take 1 tablet by mouth twice daily. celecoxib celecoxib (CELEBREX) 200 11-28-2019 [facility] mg capsule Indications: (441 95) Chronic right shoulder pain , Arthritis of shoulder Take 1 capsule by mouth twice daily. take with food 180 capsule 0 11/28/2019 Active celecoxib (CELEBREX) 200 mg 11-28-2019 [facility] (87159) capsule Indications: Chronic right shoulder pain , Arthritis of shoulder Take 1 capsule by mouth twice daily. take with food 180 capsule 0 11/28/2019 Active celecoxib (CELEBREX) 200 mg 11-28-2019 Sriram Valdez [facility] (67338) capsule Indications: Chronic right shoulder pain , Arthritis of shoulder Take 1 capsule by mouth twice daily. take with food 180 capsule 0 11/28/2019 Active Comment: Take 1 capsule by mouth twic e daily. take with food Cetirizine cetirizine (ZYRTEC) 10 07-19-2019 [facility] ([facility]) [facility] mg tablet Take 1 tablet (441 95) by mouth once daily. 30 tablet 5 07/19/2019 Active Comment: Take 1 tablet by mouth once daily. citalopram CELEXA 20 MG TABS One 01-02-2016 - [facility] tablet by mouth daily 04-19-2016 Group ([id number]) CITALOPRAM HYDROBROMIDE [id number] Bernadette Restrepo PA-C clopidogrel clopidogrel (PLAVIX) 75 04-08-2019 [facility]am [facility] mg tablet Indications: Group (70316) Atherosclerosis of coronary artery [place] heart without angina pectoris, unspecified vessel or lesion type Take 1 tablet by mouth once daily. 90 tablet 3 04/08/2019 Active CLOPIDOGREL BISULFATE 75 MG TABS One tablet 04-17-2016 [facility] (80448) by mouth daily On Hold CLOPIDOGREL BISULFATE [id number] Asad Rogers MD Comment: Take 1 tablet by mouth once daily. COMPOUNDED COMPOUNDED 09-01-2017 [facility] ([facility] PRESCRIPTION PRESCRIPTION [place] ([id number]) Indications: COPD, frequent exacerbations (HCC) Nebulizer for home use. Diagnosis: Emphysema, COPD exacerbation. Lifetime use. 1 Each 0 09/01/2017 Active COMPOUNDED PRESCRIPTION 09-01-2017 [facility] ([facility]) [facility] (86610) Indications: COPD, frequent exacerbations (HCC) Nebulizer for home use. Diagnosis: Emphysema, COPD exacerbation. Lifetime use. 1 Each 0 09/01/2017 Active COMPOUNDED PRESCRIPTION 09-01-2017 [facility] ([facility]) [facility] (86943) Indications: COPD, frequent exacerbations (HCC) Nebulizer for home use. Diagnosis: Emphysema, COPD exacerbation. Lifetime use. 1 Each 0 09/01/2017 Active Comment: Nebulizer for home use. Diag nosis: Emphysema, COPD exacerbation. Lifetime use. Diclofenac diclofenac sodium 08-30-2019 Sriram [facility]afuer[facility] (VOLTAREN) 1 % topical (4419 5) gel Indications: Arthritis of shoulder , Pain in both wrists Apply 2 g to affected area four times daily as needed. 100 g 0 08/30/2019 Active Comment: Apply 2 g to affected area f our times daily as needed. donepezil donepezil (ARICEPT) 5 mg 04-23-2019 Sriram Villafuerte [facility] tablet Indications: (15758) Advanced dementia (HCC) Take 1 tablet by mouth daily at bedtime. 90 tablet 3 04/23/2019 Active Comment: Take 1 tablet by mouth daily at bedtime. fluticasone / ADVAIR DISKUS 100-50 04-17-2016 [facility] salmeterol MCG/DOSE AEPB Take as Group ([id number]) Directed FLUTICASONE-SALMETEROL [id number] Bernadette Marin RN Glucosamine-Chond Nmtygqrykkx-Mwympwwta-Que 04-15-2017 Sriram [facility] roit-Vit C-Mn C-Mn (GLUCOSAMINE [facility] (4 0028) (GLUCOSAMINE CHONDROITIN MAXSTR) 500-400 CHONDROITIN mg cap Take 1 capsule by MAXSTR) 500-400 mouth once daily. 90 capsule mg cap 3 04/15/2017 Active Vbvgbxwrylc-Uunjlydsa-Ngy C-Mn 04-15-2017 Sriram Villafuerte [facility] (GLUCOSAMINE CHONDROITIN MAXSTR) (64162) 500-400 mg cap Take 1 capsule by mouth once daily. 90 capsule 3 04/15/2017 Active Higsyxhajlc-Pkbojwpfm-Hlc C-Mn 04-15-2017 Sriram Villafuerte [facility] (GLUCOSAMINE CHONDROITIN MAXSTR) (20054) 500-400 mg cap Take 1 capsule by mouth once daily. 90 capsule 3 04/15/2017 Active Comment: Take 1 capsule by mouth once daily. guaiFENesin GUAIFENESIN ORAL Take by mouth. 0 [facility] v[facility] (06260) Active GUAIFENESIN ORAL Take by mouth. 0 Active [facility] vider [facility] (10342) GUAIFENESIN ORAL Take by mouth. 0 Active [facility] (69594) Comment: Take by mouth. hydrALAZINE hydrALAZINE (APRESOLINE) 03-08-2019 Sriram Villafuerte [facility] 10 mg tablet Take 1 (47867) tablet by mouth four times daily as needed. For systolic blood pressure over 159 120 tablet 0 03/08/2019 Active Comment: Take 1 tablet by mouth four times daily as needed. For systolic blood pressure over 159 Hydrocortisone hydrocortisone 07-17-2018 [facility] (ANUSOL-HC) 2.5 % rectal (44 195) cream 1 application by RECTAL route twice daily as needed. 1 Tube 3 07/17/2018 Active Comment: 1 application by RECTAL rout e twice daily as needed. Ipratropium ipratropium bromide 07-19-2019 Irvin (Billet Assembler) [facility] (ATROVENT) 42 mcg (0.06 (441 95) %) nasal spray Use 2 Sprays in the nose four times daily as needed. 3 Bottle 3 07/19/2019 Active Comment: Use 2 Sprays in the nose fou r times daily as needed. lactulose LACTULOSE 10 GM/15ML SOLN 12-27-2015 - 04-19-2016 [facility] 10 Gm daily (4469 1) LACTULOSE [id number] Asad Rogers MD lisinopril LISINOPRIL 5 MG TABS One 12-27-2015 - 03-13-2016 [facility] tablet by mouth daily (33271 ) LISINOPRIL [id number] Bernadette Restrepo PA-C LISINOPRIL 5 MG TABS One tablet by mouth 12-27-2015 [facility] (63502) twice daily LISINOPRIL [id number] Radha Figueroa RN LORazepam LORAZEPAM 0.5 MG 12-27-2015 - [facility] TABS One tablet by 04-19-2016 Group (44 691) mouth twice daily LORAZEPAM [id number] Asad Rogers MD MULTIPLE CENTRUM SILVER TABS 12-27-2015 [facility] VITAMINS-MINERALS One tablet by mouth Jaya up (47091) daily MULTIPLE VITAMINS-MINERALS [id number] Radha Figueroa RN naproxen NAPROXEN 250 MG TABS 04-17-2016 - [facility] as needed 04-19-2016 Group ( 91046) NAPROXEN [id number] Asad Rogers MD omeprazole OMEPRAZOLE 20 MG 12-27-2015 [facility] CPDR One tablet by Group (44 691) mouth daily as needed OMEPRAZOLE [id number] Radha Figueroa RN osteo bi-flex OSTEO BI-FLEX 12-27-2015 [facility] REGULAR STRENGTH Group (4469 1) TABS One tablet by mouth daily GLUCOSAMINE-CHONDROI TIN TABS [id number] Radha Figueroa RN polyethylene glycols MIRALAX PACK Take as 12-27-2015 [facility] directed daily Group (17696) POLYETHYLENE GLYCOL 3350 [id number] Radha Figueroa RN simvastatin SIMVASTATIN 40 MG 12-27-2015 [facility] TABS One tablet by Group (44 691) mouth at bedtime. SIMVASTATIN [id number] Radha Figueroa RN Triamcinolone triamcinolone 04-20-2018 [facility]am [facility] acetonide (KENALOG) [facility] ( 73389) 0.1 % cream Indications: Eczema, unspecified type Apply 1 application to affected area twice daily as needed. For eczematous rash on extremities and torso 80 g 0 04/20/2018 Active TRIAMCINOLONE ACETONIDE TOPICAL Apply to f [facility] (68713) affected area. 0 Active TRIAMCINOLONE ACETONIDE TOPICAL Apply to f [facility] (80838) affected area. 0 Active TRIAMCINOLONE ACETONIDE TOPICAL Apply to [facility] (36932) affected area. 0 Active Comment: Apply 1 application to affec pedro area twice daily as needed. For eczematous rash on extremities and tors o Apply to affected area. Problems Active Problems Category Problem Name Status Date Location Acute cerebrovascular Cerebrovascular accident Active 016 - [facility] (93398) Chronic obstructive Chronic obstructive Active 11-22-2016 - [facility] pulmonary disease and pulmonary disease, Health System bronchiectasis unspecified (94062) Coma, stupor, brain Coma scale, best motor Active 11-22-2016 - [facility] damage response, obeys Health Syste m commands, at arrival to (000 00) emergency department Coronary atherosclerosis Atherosclerotic heart Active 016 - [facility] and other heart disease disease [place] Group (37963) coronary artery without angina pectoris Delirium dementia and Multi-infarct dementia, 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 amnestic and other uncomplicated (74855) cognitive disorders Disorders of lipid Hyperlipidemia Active 04-09-2007 - [facility] metabolism [facility] (98577) Essential hypertension Hypertensive disorder Active - [facility] (18780) External Injury - Fall Other fall on same Active 11-22-2016 - [facility] level, initial encounter [facility] System (62171) External Injury - Activity, walking an Active 11-22-2016 - [facility] Unspecified animal Health System (08496) Mood disorders Depressive disorder Active 05-01-2017 - [facility] (24031) Osteoarthritis Osteoarthritis of joint Active 01-01-2018 - [facility] of right shoulder region (44 195) Other connective tissue Muscle pain Active [facility] Clinic disease (93984) Other connective tissue Pain in right lower limb Active [facility] disease (32457) Other ear and sense Does use hearing aid Active 10-31-2017 - [facility] organ disorders (25287) Other ear and sense Hearing loss Active 09-07-2014 - [facility] organ disorders (38741) Other injuries and Falling injury Active 01-01-2018 - [facility] Clinic conditions due to (19971) external causes Mariella-; endo-; and Cardiomyopathy Active 12-27-2015 - [facility] myocarditis; Group (14520) cardiomyopathy Unclassified Chronic pain of right Active 07-20-2019 - [facility] upper limb (32820) Unclassified Unknown / UNK(Unknown) Active 12-11-2016 - [facility] (40901) Unclassified APPOINTMENT CANCELLED Active [facility] (48118) Past or Other Problems Category Problem Name Status Date Location Fracture of upper limb Displaced fracture of Completed 7 - [facility] metacarpal bone, left (17680 ) hand, initial encounter for closed fracture Intracranial injury Traumatic subdural Completed 11-22-2016 - [facility] hemorrhage without loss Heal System of consciousness, (73917) initial encounter Open wounds of head; Laceration without Completed 11-22-2016 - [facility] neck; and trunk foreign body of left Heal th System eyelid and periocular (06646 ) area, initial encounter Other aftercare Other terminal operations supervisor Completed 12-27-2015 - [facility] eart (current) drug therapy Group (66514) Other circulatory History of subdural Completed 12-16-2016 - [facility] disease hematoma (41676) Other circulatory Personal history of Completed 11-22-2016 - [facility] on General disease transient ischemic Health Sy stem attack (TIA), and (61134) cerebral infarction without residual deficits Other circulatory History of Completed 12-12-2015 - [facility] disease cerebrovascular (73283) accident Other gastrointestinal Constipation Completed 01-13-2007 - [facility] disorders (35757) Other nervous system Chronic pain syndrome Completed 01-01-2018 - [facility] disorders (20907) Residual codes; Insomnia Completed 11-11-2011 - [facility] in unclassified (24908) Screening or history of Tobacco dependence Completed 11-16-2009 - [facility] mental health and syndrome Group (446 91) substance abuse Spondylosis; Spinal stenosis Completed 11-16-2009 - [facility] intervertebral disc (68445) disorders; other back problems Unclassified S06.5XOA 12-11-2016 - [facility] (49049) Results Result Name Value Range Unit Interpretation Flag Date Location obsolete on 2019-11 OBSOLETE Refill (INTMWS) Normal 11-26-2019 [facility] ANEL Mcelroy ([id number]) 1935 [place] Date Time Provider Department (93193) 11/26/19 SRIRAM VALDEZ During your visit today, we recorded the following informati on about you: Katelyn Bernal LPN 11/26/2019 12:00 PM Signed Patients inhaler was sent to her mail away pharmacy asking if it can be sent to her local pharmacy. Order pended. Please advise. Allergies As of Date: 11/26/2019 Noted Allergy Reaction AMBIEN (ZOLPIDEM) 12/28/2012 14 - Other: See Comments Comments: Hangover effect/body aches GABAPENTIN 07/18/2014 14 - Other: See Comments Comments: states that made me crazy; tremor and made her f orgetful SULFA (SULFONAMIDE ANTIBIOTICS) 08/07/2006 4 - Hives Date Reviewed: 08/30/2019 Reviewed by: Suzette Lopez LPN - Fully Assessed Reason for Visit: Refill Request [94] Visit Diagnoses:Pulmonary emphysema, unspecified emphysema type (HCC) [J43.9] COPD, frequent exacerbations (HCC) [J44.1] Order(s):albuterol HFA (PROVENTIL HFA, VENTOLIN HFA) 90 mcg/ actuation inhalerInhale 2 Puffs as instructed every 6 hours as needed. Disp: 3 gRfl: 3 Prescriptions as of 11/26/2019 Sig: ALBUTEROL SULFATE HFA 90 MCG/* Inhale 2 Puffs as instructed * OXYCODONE-ACETAMINOPHEN 10 MG* Take 1 tablet by mouth twice * OXYCODONE-ACETAMINOPHEN 10 MG* Take 1 tablet by mouth twice * CELECOXIB 200 MG CAPSULE Take 1 capsule by mouth twice* CARVEDILOL 3.125 MG TABLET Take 1 tablet by mouth twice * DICLOFENAC 1 % TOPICAL GEL Apply 2 g to affected area fo* AMITRIPTYLINE 50 MG TABLET Take 1 tablet by mouth daily * IPRATROPIUM BROMIDE 42 MCG (0* Use 2 Sprays in the nose four * CETIRIZINE 10 MG TABLET Take 1 tablet by mouth once d* DONEPEZIL 5 MG TABLET Take 1 tablet by mouth daily * CLOPIDOGREL 75 MG TABLET Take 1 tablet by mouth once d* HYDRALAZINE 10 MG TABLET Take 1 tablet by mouth four t* ATORVASTATIN 10 MG TABLET Take 1 tablet by mouth once d* BISACODYL 5 MG TABLET,DELAYED* Take two (2) tablets, at the * HYDROCORTISONE 2.5 % TOPICAL * 1 application by RECTAL route * TRIAMCINOLONE ACETONIDE 0.1 %* Apply 1 application to affect * ALBUTEROL SULFATE 2.5 MG/3 ML* Use 3 mL via nebulizer three * TRIAMCINOLONE ACETONIDE TOPIC* Apply to affected area. COMPOUNDED PRESCRIPTION Nebulizer for home use. Diagn* COMPOUNDED PRESCRIPTION BLOOD PRESSURE CUFF FOR HOME * MVUVFLRQLWM-QCDSOAKLU-IZW C-M* Take 1 capsule by mouth once * GUAIFENESIN ORAL Take by mouth. Problem List As Of Date 11/26/2019 Noted Resolved Coronary atherosclerosis [I25.10] More... Chronic obstructive asthma, unspecified [J44.9] 08/13/2019 Unspecified asthma, with status asthmaticus [J4* 08/13/2019 Pulmonary emphysema (HCC) [J43.9] More... Unspecified asthma(493.90) [J45.909] 08/13/2019 More... Nonspecific abnormal results of liver function *01/13/2007 0 11/11/2011 CONSTIPATION NOS [K59.00] 01/13/2007 Anemia, unspecified [D64.9] 01/14/2007 08/13/2019 Mixed hyperlipidemia [E78.2] 04/09/2007 More... History of squamous cell carcinoma of skin [Z85*11/16/2009 0 08/13/2019 More... Former smoker [Z87.891] 11/16/2009 Spinal stenosis [M48.00] 11/16/2009 More... REDDING (hard of hearing) [H91.90] 11/16/2009 08/13/2019 Incontinence of feces [787.6] 12/13/2009 08/13/2019 Benign neoplasm of colon [D12.6] 12/13/2009 08/13/2019 Basal cell carcinoma [C44.91] 09/25/2011 08/13/2019 More... Compound nevus of thigh [D22.70] 09/25/2011 08/13/2019 More... Insomnia [G47.00] 11/11/2011 More... Chronic serous otitis media [H65.20] 09/07/2014 08/13/2019 Hearing loss [H91.90] 09/07/2014 Hoarseness [R49.0] 09/07/2014 08/13/2019 History of CVA (cerebrovascular accident) [Z86.*12/12/2015 History of subdural hematoma [Z86.79] 12/16/2016 Depression [F32.9] 05/01/2017 Uses hearing aid [Z97.4] 10/31/2017 More... Vascular dementia, uncomplicated [F01.50] 12/05/2017 More... Fall with injury [W19.XXXA] 01/01/2018 More... External otitis of right ear [H60.91] 01/01/2018 08/13/2019 More... HTN (hypertension) [I10] 01/01/2018 More... DJD (degenerative joint disease) [M19.90] 01/01/2018 More... Chronic pain syndrome [G89.4] 01/01/2018 More... Chronic right shoulder pain [M25.511, G89.29] 07/20/2019 Primary osteoarthritis of right shoulder [M19.0*07/20/2019 Prescriptions ordered this encounter Disp Refills Start End ALBUTEROL SULFATE HFA 90 MCG/ACTUATI* 3 g 3 11/26/2019 Cmt: Generic or brand: dispense inhaler preferre d by patient/insurance unless JOS flag is selected. Route: INHALATION Sig: Inhale 2 Puffs as instructed every 6 hours as needed. Medications Discontinued During This Encounter Prescriptions - albuterol HFA (PROVENTIL HFA, VENTOLIN HFA) 90 mcg/actuati on inhaler (Discontinued) Inhale 2 Puffs as instructed every 6 hours as needed. Encounter Status:Closed by IRVIN BAL on 11/26/19 obsolete on 2019-11 OBSOLETE Refill (FAMPWS) Normal 11-18-2019 Jacob james ANEL Mcelroy ([id number]) 1935 [facility] Date Time Provider Department ([id number]) 11/18/19 SRIRAM VALDEZ During your visit today, we recorded the following informati on about you: Brooke Escobedo ANASTACIO 11/18/2019 2:40 PM Signed Last Appt: 10/26/19 Patient has been identified by name and date of : Yes Pending Prescriptions Disp Refills ALBUTEROL SULFATE HFA 90 MCG/ACTUATION AEROSOL INHALER 3 g 3 Sig: Inhale 2 Puffs as instructed every 6 hours as needed. JOS: No RX INSTRUCTIONS: Patient aware RX escripted to mail away pharmacy. No n eed to notify patient. Brooke Blankenshipmarvin CHAVES Allergies As of Date: 11/18/2019 Noted Allergy Reaction AMBIEN (ZOLPIDEM) 12/28/2012 14 - Other: See Comments Comments: Hangover effect/body aches GABAPENTIN 07/18/2014 14 - Other: See Comments Comments: states that made me crazy; tremor and made her f orgetful SULFA (SULFONAMIDE ANTIBIOTICS) 08/07/2006 4 - Hives Date Reviewed: 08/30/2019 Reviewed by: Suzette Lopez LPN - Fully Assessed Reason for Visit: Refill Request [94] Visit Diagnoses:Pulmonary emphysema, unspecified emphysema type (HCC) [J43.9] COPD, frequent exacerbations (HCC) [J44.1] Order(s):albuterol HFA (PROVENTIL HFA, VENTOLIN HFA) 90 mcg/ actuation inhalerInhale 2 Puffs as instructed every 6 hours as needed. Disp: 3 gRfl: 3 Prescriptions as of 11/18/2019 Sig: ALBUTEROL SULFATE HFA 90 MCG/* Inhale 2 Puffs as instructed * OXYCODONE-ACETAMINOPHEN 10 MG* Take 1 tablet by mouth twice * OXYCODONE-ACETAMINOPHEN 10 MG* Take 1 tablet by mouth twice * CELECOXIB 200 MG CAPSULE Take 1 capsule by mouth twice* CARVEDILOL 3.125 MG TABLET Take 1 tablet by mouth twice * DICLOFENAC 1 % TOPICAL GEL Apply 2 g to affected area fo* AMITRIPTYLINE 50 MG TABLET Take 1 tablet by mouth daily * IPRATROPIUM BROMIDE 42 MCG (0* Use 2 Sprays in the nose four * CETIRIZINE 10 MG TABLET Take 1 tablet by mouth once d* DONEPEZIL 5 MG TABLET Take 1 tablet by mouth daily * CLOPIDOGREL 75 MG TABLET Take 1 tablet by mouth once d* HYDRALAZINE 10 MG TABLET Take 1 tablet by mouth four t* ATORVASTATIN 10 MG TABLET Take 1 tablet by mouth once d* BISACODYL 5 MG TABLET,DELAYED* Take two (2) tablets, at the * HYDROCORTISONE 2.5 % TOPICAL * 1 application by RECTAL route * TRIAMCINOLONE ACETONIDE 0.1 %* Apply 1 application to affect * ALBUTEROL SULFATE 2.5 MG/3 ML* Use 3 mL via nebulizer three * TRIAMCINOLONE ACETONIDE TOPIC* Apply to affected area. COMPOUNDED PRESCRIPTION Nebulizer for home use. Diagn* COMPOUNDED PRESCRIPTION BLOOD PRESSURE CUFF FOR HOME * ZWHTXIAIRKY-QUIRPIXMN-MTZ C-M* Take 1 capsule by mouth once * GUAIFENESIN ORAL Take by mouth. Problem List As Of Date 11/18/2019 Noted Resolved Coronary atherosclerosis [I25.10] More... Chronic obstructive asthma, unspecified [J44.9] 08/13/2019 Unspecified asthma, with status asthmaticus [J4* 08/13/2019 Pulmonary emphysema (HCC) [J43.9] More... Unspecified asthma(493.90) [J45.909] 08/13/2019 More... Nonspecific abnormal results of liver function *01/13/2007 0 11/11/2011 CONSTIPATION NOS [K59.00] 01/13/2007 Anemia, unspecified [D64.9] 01/14/2007 08/13/2019 Mixed hyperlipidemia [E78.2] 04/09/2007 More... History of squamous cell carcinoma of skin [Z85*11/16/2009 0 08/13/2019 More... Former smoker [Z87.891] 11/16/2009 Spinal stenosis [M48.00] 11/16/2009 More... REDDING (hard of hearing) [H91.90] 11/16/2009 08/13/2019 Incontinence of feces [787.6] 12/13/2009 08/13/2019 Benign neoplasm of colon [D12.6] 12/13/2009 08/13/2019 Basal cell carcinoma [C44.91] 09/25/2011 08/13/2019 More... Compound nevus of thigh [D22.70] 09/25/2011 08/13/2019 More... Insomnia [G47.00] 11/11/2011 More... Chronic serous otitis media [H65.20] 09/07/2014 08/13/2019 Hearing loss [H91.90] 09/07/2014 Hoarseness [R49.0] 09/07/2014 08/13/2019 History of CVA (cerebrovascular accident) [Z86.*12/12/2015 History of subdural hematoma [Z86.79] 12/16/2016 Depression [F32.9] 05/01/2017 Uses hearing aid [Z97.4] 10/31/2017 More... Vascular dementia, uncomplicated [F01.50] 12/05/2017 More... Fall with injury [W19.XXXA] 01/01/2018 More... External otitis of right ear [H60.91] 01/01/2018 08/13/2019 More... HTN (hypertension) [I10] 01/01/2018 More... DJD (degenerative joint disease) [M19.90] 01/01/2018 More... Chronic pain syndrome [G89.4] 01/01/2018 More... Chronic right shoulder pain [M25.511, G89.29] 07/20/2019 Primary osteoarthritis of right shoulder [M19.0*07/20/2019 Prescriptions ordered this encounter Disp Refills Start End ALBUTEROL SULFATE HFA 90 MCG/ACTUATI* 3 g 3 11/18/2019 Cmt: Generic or brand: dispense inhaler preferre d by patient/insurance unless JOS flag is selected. Route: INHALATION Sig: Inhale 2 Puffs as instructed every 6 hours as needed. Medications Discontinued During This Encounter Prescriptions - albuterol HFA (PROVENTIL HFA, VENTOLIN HFA) 90 mcg/actuati on inhaler (Discontinued) Inhale 2 Puffs as instructed every 6 hours as needed. Encounter Status:Closed by IRVIN BLA on 11/18/19 progress on 2019-10 PROGRESS HNO ID: [id number] Normal 11-05-[address] [facility] Author: Delaney Onofre) Kirit Clifford ([id number]) Service: ? Author Type: Nurse Practitioner Type: Progress Notes Filed: 11/05/2019 1:07 PM Note Text: Patient complaining of stroke like symptoms for the past wee k. Right arm and leg numbness. Referred to ER for further evaluation. DEO Fischer on 2019-11-05 CNOV Office Visit (UCWSTR) Normal 11-05-19 Clifford ANEL Mcelroy ([id number]) 1935 [facility] Time Provider Department ([id number]) 11/05/19 1:00 PM DELANEY BETH (DAKOTA) WSTR During your visit today, we recorded the following informati on about you: Delaney Beth APRN.CNP 11/05/2019 1:07 PM Signed Patient complaining of stroke like symptoms for the . Right arm and leg numbness. Referred to ER for further evaluation. Delaney Harrison APRN.CNP Referring Provider: SELF [[id number]] Allergies As of Date: 11/05/2019 Noted Allergy Reaction AMBIEN (ZOLPIDEM) 12/28/2012 14 - Other: See Comments Comments: Hangover effect/body aches GABAPENTIN 07/18/2014 14 - Other: See Comments Comments: states that made me crazy; tremor and made her f orgetful SULFA (SULFONAMIDE ANTIBIOTICS) 08/07/2006 4 - Hives Date Reviewed: 08/30/2019 Reviewed by: Suzette Lopez LPN - Fully Assessed Primary Visit Diagnosis:APPOINTMENT CANCELLED Prescriptions as of 11/05/2019 Sig: OXYCODONE-ACETAMINOPHEN 10 MG* Take 1 tablet by mouth twice * OXYCODONE-ACETAMINOPHEN 10 MG* Take 1 tablet by mouth twice * CELECOXIB 200 MG CAPSULE Take 1 capsule by mouth twice* CARVEDILOL 3.125 MG TABLET Take 1 tablet by mouth twice * DICLOFENAC 1 % TOPICAL GEL Apply 2 g to affected area fo* AMITRIPTYLINE 50 MG TABLET Take 1 tablet by mouth daily * IPRATROPIUM BROMIDE 42 MCG (0* Use 2 Sprays in the nose four * CETIRIZINE 10 MG TABLET Take 1 tablet by mouth once d* DONEPEZIL 5 MG TABLET Take 1 tablet by mouth daily * CLOPIDOGREL 75 MG TABLET Take 1 tablet by mouth once d* HYDRALAZINE 10 MG TABLET Take 1 tablet by mouth four t* ATORVASTATIN 10 MG TABLET Take 1 tablet by mouth once d* BISACODYL 5 MG TABLET,DELAYED* Take two (2) tablets, at the * HYDROCORTISONE 2.5 % TOPICAL * 1 application by RECTAL route * TRIAMCINOLONE ACETONIDE 0.1 %* Apply 1 application to affect * ALBUTEROL SULFATE HFA 90 MCG/* Inhale 2 Puffs as instructed * ALBUTEROL SULFATE 2.5 MG/3 ML* Use 3 mL via nebulizer three * TRIAMCINOLONE ACETONIDE TOPIC* Apply to affected area. COMPOUNDED PRESCRIPTION Nebulizer for home use. Diagn* COMPOUNDED PRESCRIPTION BLOOD PRESSURE CUFF FOR HOME * SEMKXZASQSY-URGFOKESY-RXL C-M* Take 1 capsule by mouth once * GUAIFENESIN ORAL Take by mouth. Problem List As Of Date 11/05/2019 Noted Resolved Coronary atherosclerosis [I25.10] More... Chronic obstructive asthma, unspecified [J44.9] 08/13/2019 Unspecified asthma, with status asthmaticus [J4* 08/13/2019 Pulmonary emphysema (HCC) [J43.9] More... Unspecified asthma(493.90) [J45.909] 08/13/2019 More... Nonspecific abnormal results of liver function *01/13/2007 0 11/11/2011 CONSTIPATION NOS [K59.00] 01/13/2007 Anemia, unspecified [D64.9] 01/14/2007 08/13/2019 Mixed hyperlipidemia [E78.2] 04/09/2007 More... History of squamous cell carcinoma of skin [Z85*11/16/2009 0 08/13/2019 More... Former smoker [Z87.891] 11/16/2009 Spinal stenosis [M48.00] 11/16/2009 More... REDDING (hard of hearing) [H91.90] 11/16/2009 08/13/2019 Incontinence of feces [787.6] 12/13/2009 08/13/2019 Benign neoplasm of colon [D12.6] 12/13/2009 08/13/2019 Basal cell carcinoma [C44.91] 09/25/2011 08/13/2019 More... Compound nevus of thigh [D22.70] 09/25/2011 08/13/2019 More... Insomnia [G47.00] 11/11/2011 More... Chronic serous otitis media [H65.20] 09/07/2014 08/13/2019 Hearing loss [H91.90] 09/07/2014 Hoarseness [R49.0] 09/07/2014 08/13/2019 History of CVA (cerebrovascular accident) [Z86.*12/12/2015 History of subdural hematoma [Z86.79] 12/16/2016 Depression [F32.9] 05/01/2017 Uses hearing aid [Z97.4] 10/31/2017 More... Vascular dementia, uncomplicated [F01.50] 12/05/2017 More... Fall with injury [W19.XXXA] 01/01/2018 More... External otitis of right ear [H60.91] 01/01/2018 08/13/2019 More... HTN (hypertension) [I10] 01/01/2018 More... DJD (degenerative joint disease) [M19.90] 01/01/2018 More... Chronic pain syndrome [G89.4] 01/01/2018 More... Chronic right shoulder pain [M25.511, G89.29] 07/20/2019 Primary osteoarthritis of right shoulder [M19.0*07/20/2019 Encounter Status:Closed by DELANEY BETH on 11/05/19 obsolete on 2019-10 OBSOLETE Refill (MIQ) Normal 10-27-2019 [place] and ANEL Mcelroy ([id number]) 1935 [place] Date Time Provider Department ([id number]) 10/27/19 SRIRAM VALDEZ During your visit today, we recorded the following informati on about you: Nieves Waresubha OLIVEIRA 10/27/2019 4:51 PM Signed Patient has been identified by name and date of : Yes Last office visit in this department: Visit date not found RX INSTRUCTIONS: Patient aware RX will be sent to pharmacy. No need to notify patient. Patient phones requesting refills as follows: Pending Prescriptions Disp Refills OXYCODONE-ACETAMINOPHEN 10 MG-325 MG TABLET 60 tablet 0 Sig: Take 1 tablet by mouth twice daily as needed for up to 30 days. as needed Do not start before November 28, 2019. DARELL Class: C-II JOS: No Please review and advise. Nieves Waret [facility] Luis Zamarripa Ma 10/28/2019 11:22 AM Signed Prescription was already sent can refill on 10/29/2019. Luis A Zamarripa Ma Allergies As of Date: 10/27/2019 Noted Allergy Reaction AMBIEN (ZOLPIDEM) 12/28/2012 14 - Other: See Comments Comments: Hangover effect/body aches GABAPENTIN 07/18/2014 14 - Other: See Comments Comments: states that made me crazy; tremor and made her f orgetful SULFA (SULFONAMIDE ANTIBIOTICS) 08/07/2006 4 - Hives Date Reviewed: 08/30/2019 Reviewed by: Suzette Lopez LPN - Fully Assessed Reason for Visit: Refill Request [94] Visit Diagnoses:Leg pain, right [M79.604] Comment:Chronic pain Pain in the muscles, right leg [M79.10] Spinal stenosis of lumbar region, unspecified whether neurogenic claudication present [M48.061] Comment:Percocet more effective than Hydrocodone. Will resume at BID. Prescriptions as of 10/27/2019 Sig: OXYCODONE-ACETAMINOPHEN 10 MG* Take 1 tablet by mouth twice * OXYCODONE-ACETAMINOPHEN 10 MG* Take 1 tablet by mouth twice * CELECOXIB 200 MG CAPSULE Take 1 capsule by mouth twice* CARVEDILOL 3.125 MG TABLET Take 1 tablet by mouth twice * DICLOFENAC 1 % TOPICAL GEL Apply 2 g to affected area fo* AMITRIPTYLINE 50 MG TABLET Take 1 tablet by mouth daily * IPRATROPIUM BROMIDE 42 MCG (0* Use 2 Sprays in the nose four * CETIRIZINE 10 MG TABLET Take 1 tablet by mouth once d* DONEPEZIL 5 MG TABLET Take 1 tablet by mouth daily * CLOPIDOGREL 75 MG TABLET Take 1 tablet by mouth once d* HYDRALAZINE 10 MG TABLET Take 1 tablet by mouth four t* ATORVASTATIN 10 MG TABLET Take 1 tablet by mouth once d* BISACODYL 5 MG TABLET,DELAYED* Take two (2) tablets, at the * HYDROCORTISONE 2.5 % TOPICAL * 1 application by RECTAL route * TRIAMCINOLONE ACETONIDE 0.1 %* Apply 1 application to affect * ALBUTEROL SULFATE HFA 90 MCG/* Inhale 2 Puffs as instructed * ALBUTEROL SULFATE 2.5 MG/3 ML* Use 3 mL via nebulizer three * TRIAMCINOLONE ACETONIDE TOPIC* Apply to affected area. COMPOUNDED PRESCRIPTION Nebulizer for home use. Diagn* COMPOUNDED PRESCRIPTION BLOOD PRESSURE CUFF FOR HOME * RAXHLQZYNAL-ZUWBGRMLF-KXY C-M* Take 1 capsule by mouth once * GUAIFENESIN ORAL Take by mouth. Problem List As Of Date 10/27/2019 Noted Resolved Coronary atherosclerosis [I25.10] More... Chronic obstructive asthma, unspecified [J44.9] 08/13/2019 Unspecified asthma, with status asthmaticus [J4* 08/13/2019 Pulmonary emphysema (HCC) [J43.9] More... Unspecified asthma(493.90) [J45.909] 08/13/2019 More... Nonspecific abnormal results of liver function *01/13/2007 0 11/11/2011 CONSTIPATION NOS [K59.00] 01/13/2007 Anemia, unspecified [D64.9] 01/14/2007 08/13/2019 Mixed hyperlipidemia [E78.2] 04/09/2007 More... History of squamous cell carcinoma of skin [Z85*11/16/2009 0 08/13/2019 More... Former smoker [Z87.891] 11/16/2009 Spinal stenosis [M48.00] 11/16/2009 More... REDDING (hard of hearing) [H91.90] 11/16/2009 08/13/2019 Incontinence of feces [787.6] 12/13/2009 08/13/2019 Benign neoplasm of colon [D12.6] 12/13/2009 08/13/2019 Basal cell carcinoma [C44.91] 09/25/2011 08/13/2019 More... Compound nevus of thigh [D22.70] 09/25/2011 08/13/2019 More... Insomnia [G47.00] 11/11/2011 More... Chronic serous otitis media [H65.20] 09/07/2014 08/13/2019 Hearing loss [H91.90] 09/07/2014 Hoarseness [R49.0] 09/07/2014 08/13/2019 History of CVA (cerebrovascular accident) [Z86.*12/12/2015 History of subdural hematoma [Z86.79] 12/16/2016 Depression [F32.9] 05/01/2017 Uses hearing aid [Z97.4] 10/31/2017 More... Vascular dementia, uncomplicated [F01.50] 12/05/2017 More... Fall with injury [W19.XXXA] 01/01/2018 More... External otitis of right ear [H60.91] 01/01/2018 08/13/2019 More... HTN (hypertension) [I10] 01/01/2018 More... DJD (degenerative joint disease) [M19.90] 01/01/2018 More... Chronic pain syndrome [G89.4] 01/01/2018 More... Chronic right shoulder pain [M25.511, G89.29] 07/20/2019 Primary osteoarthritis of right shoulder [M19.0*07/20/2019 Encounter Status:Closed by LUIS ZAMARRIPA MA on 10/28/19 progress on 2019-10 PROGRESS HNO ID: [id number] Normal 10-26-[address] [facility] Author: Sriram Valdez Clifford ([id number]) Service: ? Author Type: Physician Type: Progress Notes Filed: 10/26/2019 4:10 PM Note Text: This note was created using NoteWriter. Subjective Anel Espino is a 83 year old female. Patient presents with: Follow Up: 2 months SUBJECTIVE: Anel Espino is a 83 year old year old lady here today fo r 2 month follow up appointment for review of medical conditions. Flu shot--asked about when available. Wants pneumonia vaccin e too. Arm bruises easily. Right shoulder, arm and behind breast (feels like has been b ruised despite no injury). Notices tenderness when applies topical rub. Sta rted turmeric topical rub on breast. Needed parking placard letter. Has difficulty walking second cruz to pain. Celebrex helps some. Shoulder pain not severe enough would want to pursue any hi nt injections or surgery even if were a candidate. PAST MEDICAL HISTORY Diagnosis Date - ABNORMAL LIVER FUNCTION STUDY 01/13/2007 - Anemia, unspecified 01/14/2007 - Basal cell carcinoma 09/25/2011 Superior umbilicus and left posterior calf, Sailaja Kan.Will follow annually every year, Due September 2012. 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 Dr. Jimenez. Had s een Dr. Huff - Unspecified asthma(493.90) - Unspecified constipation - Uses hearing aid 10/31/2017 forgot to wear today Current Outpatient Medications Medication Sig - carvedilol (COREG) 3.125 mg tablet Take 1 tablet by mouth twice daily. - celecoxib (CELEBREX) 200 mg capsule Take 1 capsule by mout h twice daily. take with food - diclofenac sodium (VOLTAREN) 1 % topical gel Apply 2 g to affected area four times daily as needed. - oxyCODONE-acetaminophen (PERCOCET) 10-325 mg tablet Take 1 tablet by mouth twice daily as needed for up to 30 days. as needed - oxyCODONE-acetaminophen (PERCOCET) 10-325 mg tablet Take 1 tablet by mouth twice daily as needed for up to 30 days. as needed Do not start before September 29, 2019. - amitriptyline (ELAVIL) 50 mg tablet Take 1 tablet by mouth daily at bedtime. May take extra half pill nightly as needed for slee p - ipratropium bromide (ATROVENT) 42 mcg (0.06 %) nasal spray Use 2 Sprays in the nose four times daily as needed. - fluticasone (FLONASE) 50 mcg/actuation nasal spray Use 1-2 Sprays in each nostril once daily. Rinse mouth after use. For nasal dr rj - cetirizine (ZYRTEC) 10 mg tablet Take 1 tablet by mouth on ce daily. - donepezil (ARICEPT) 5 mg tablet Take 1 tablet by mouth cliff ly at bedtime. - oxyCODONE-acetaminophen (PERCOCET) 10-325 mg tablet Take 1 tablet by mouth twice daily as needed for up to 30 days. as needed - clopidogrel (PLAVIX) 75 mg tablet Take 1 tablet by mouth o nce daily. - hydrALAZINE (APRESOLINE) 10 mg tablet Take 1 tablet by duncan th four times daily as needed. For systolic blood pressure over 159 - atorvastatin (LIPITOR) 10 mg tablet Take 1 tablet by mouth once daily. - polyethylene glycol 3350 (MIRALAX, GLYCOLAX) 17 gram/dose powder Take one (1) bottle, as instructed for colonoscopy prep. (Patient not taking: Reported on 08/13/2019 ) - bisacodyl EC (DULCOLAX, BISACODYL,) 5 mg EC tablet Take tw o (2) tablets, at the designated times, as explained on the instruction she et provided. - PHENYLephrine 0.25 % suppository 1 Suppository by RECTAL r oute twice daily. (Patient not taking: Reported on 08/13/2019 ) - hydrocortisone (ANUSOL-HC) 2.5 % rectal cream 1 applicatio n by RECTAL route twice daily as needed. - triamcinolone acetonide (KENALOG) 0.1 % cream Apply 1 appl ication to affected area twice daily as needed. For eczematous rash on extremities and torso - albuterol HFA (PROVENTIL HFA, VENTOLIN HFA) 90 mcg/actuati on inhaler Inhale 2 Puffs as instructed every 6 hours as needed. - albuterol (PROVENTIL) 2.5 mg /3 mL (0.083 %) nebulizer abigail ution Use 3 mL via nebulizer three times daily as needed. OVER 5-15 MINUTES . FOR WHEEZING AND SHORTNESS OF BREATH. - TRIAMCINOLONE ACETONIDE TOPICAL Apply to affected area. - COMPOUNDED PRESCRIPTION Nebulizer for home use. Diagnosis: Emphysema, COPD exacerbation. Lifetime use. - Blood Pressure Cuff - Home Use BLOOD PRESSURE CUFF FOR FARHAN E USE. DX: LABILE BLOOD PRESSURE R09.89 - Zhwttsooyey-Nktekgeys-Qzx C-Mn (GLUCOSAMINE CHONDROITIN MA XSTR) 500-400 mg cap Take 1 capsule by mouth once daily. - GUAIFENESIN ORAL Take by mouth. No current facility-administered medications for this visit. Review of Systems Objective There were no vitals taken for this visit. Physical Exam Neurological: Mental Status: She is oriented to person, place, and time. Psychiatric: Attention and Perception: Attention and perception normal. Mood and Affect: Mood is depressed. Speech: Speech normal. Behavior: Behavior normal. Thought Content: Thought content normal. Cognition and Memory: Cognition normal. Judgment: Judgment normal. Assessment and Plan Encounter Diagnosis ICD-10-CM 1. Leg pain, right M79.604 oxyCODONE-acetaminophen (PERCOCET ) 10-325 mg tablet oxyCODONE-acetaminophen (PERCOCET) 10-325 mg tablet Chronic pain 2. Pain in the muscles, right leg M79.10 oxyCODONE-acetamino phen (PERCOCET) 10-325 mg tablet oxyCODONE-acetaminophen (PERCOCET) 10-325 mg tablet 3. Spinal stenosis of lumbar region, unspecified whether yoselin rogenic claudication present M48.061 oxyCODONE-acetaminophen (PERCOC ET) 10-325 mg tablet oxyCODONE-acetaminophen (PERCOCET) 10-325 mg tablet Percocet more effective than Hydrocodone. Will resume at BID . 4. Chronic right shoulder pain M25.511 celecoxib (CELEBREX) 200 mg capsule G89.29 with associated pain behind right breast 5. Arthritis of shoulder M19.019 celecoxib (CELEBREX) 200 mg capsule 6. Pain of right upper extremity M79.601 7. Other depression F32.89 exacerbated by chronic pain. Emotional support given. Contin ues presenet management. Above issues addressed with patient. Patient involved in shared decision making for management of medical issues. History and medications reviewed. Epic updated as needed Refills and/or prescriptions taken care of and meds adjusted as indicated after reviewed history, exam and labs. Health Maintenance reviewed. Updated record and/or ordered t ests as recorded. Encouraged on efforts at healthy diet and regular exercise a nd adequate sleep. Stable with control of pain though pain still can get severe --meds help take the edge off, so prefers to continue on same rather vivian n see ortho or PT or pain management. Breast pain seems to be located behin d the breast and worse with palpation when applying topical rub. No signs of diversion or abuse of medication(s); no adverse effects. Continue pres ent management. Further evaluation and treatment as indicated. Plan to schedule with nurse (Kierra) for flu and pneumovax in November. Patient would like booster for pneumovax since been over 5 y ears plus has COPD. The majority of the visit was spent counseling and/or coordi nating care for the patient. Telephone visit time was at least 21 minute valentin Valdez MD 4:02 obsolete on 2019-10 OBSOLETE Refill (INTMWS) Normal 10-20-2019 [facility] ANEL Mcelroy ([id number]) 1935 [facility] Date Time Provider Department ([id number]) 10/20/19 SRIRAM VALDEZ INTMWS During your visit today, we recorded the following informati on about you: Vero Mckeonrai Pss 10/20/2019 11:55 AM Signed Patient has been identified by name and date of : Yes Last office visit in this department: 08/30/2019 RX INSTRUCTIONS: Patient aware RX escripted to mail away pharmacy. No n eed to notify patient. Patient phones requesting refills as follows: Pending Prescriptions Disp Refills CARVEDILOL 3.125 MG TABLET 180 tablet 3 Sig: Take 1 tablet by mouth twice daily. JOS: No Please review and advise. Vero Gunn LPN 10/20/2019 12:50 PM Signed Patient has been identified by name and date of : Yes Patient phones for refill(s): Pending Prescriptions Disp Refills CARVEDILOL 3.125 MG TABLET 180 tablet 3 Sig: Take 1 tablet by mouth twice daily. JOS: No Date of last office visit in primary care: 09/20/2019 2 month follow-up: 10/26/2019 Last 2 Encounter Wt Readings: Date: Wt: 08/30/2019 64.4 kg (142 lb) 05/21/2019 63 kg (139 lb) Previous labs/tests for medication: Blood Pressure: BUN (mg/dL) Date Value 04/23/2019 26 Sodium (mmol/L) Date Value 04/23/2019 142 Last 1 Encounter BP Readings: Date: BP: 08/30/2019 130/64 Please advise. Thank you. Eileen Gunn LPN Allergies As of Date: 10/20/2019 Noted Allergy Reaction AMBIEN (ZOLPIDEM) 12/28/2012 14 - Other: See Comments Comments: Hangover effect/body aches GABAPENTIN 07/18/2014 14 - Other: See Comments Comments: states that made me crazy; tremor and made her f orgetful SULFA (SULFONAMIDE ANTIBIOTICS) 08/07/2006 4 - Hives Date Reviewed: 08/30/2019 Reviewed by: Suzette Lopez LPN - Fully Assessed Reason for Visit: Refill Request [94] Visit Diagnoses:Atherosclerosis of coronary artery of [place] heart without angina pectoris, unspecified vessel or lesion type [I25.10] Decreased left ventricular function [I51.9] Order(s):carvedilol (COREG) 3.125 mg tabletTake 1 tablet by mouth twice daily.Disp: 180 tabletRfl: 3 Prescriptions as of 10/20/2019 Sig: CARVEDILOL 3.125 MG TABLET Take 1 tablet by mouth twice * CELECOXIB 200 MG CAPSULE Take 1 capsule by mouth twice* DICLOFENAC 1 % TOPICAL GEL Apply 2 g to affected area fo* OXYCODONE-ACETAMINOPHEN 10 MG* Take 1 tablet by mouth twice * OXYCODONE-ACETAMINOPHEN 10 MG* Take 1 tablet by mouth twice * AMITRIPTYLINE 50 MG TABLET Take 1 tablet by mouth daily * IPRATROPIUM BROMIDE 42 MCG (0* Use 2 Sprays in the nose four * FLUTICASONE PROPIONATE 50 MCG* Use 1-2 Sprays in each nostri * CETIRIZINE 10 MG TABLET Take 1 tablet by mouth once d* DONEPEZIL 5 MG TABLET Take 1 tablet by mouth daily * OXYCODONE-ACETAMINOPHEN 10 MG* Take 1 tablet by mouth twice * CLOPIDOGREL 75 MG TABLET Take 1 tablet by mouth once d* HYDRALAZINE 10 MG TABLET Take 1 tablet by mouth four t* ATORVASTATIN 10 MG TABLET Take 1 tablet by mouth once d* POLYETHYLENE GLYCOL 3350 17 G* Take one (1) bottle, as instr * Patient not taking: Reported on 08/13/2019 BISACODYL 5 MG TABLET,DELAYED* Take two (2) tablets, at the * PHENYLEPHRINE 0.25 % RECTAL S* 1 Suppository by RECTAL route * Patient not taking: Reported on 08/13/2019 HYDROCORTISONE 2.5 % TOPICAL * 1 application by RECTAL route * TRIAMCINOLONE ACETONIDE 0.1 %* Apply 1 application to affect * ALBUTEROL SULFATE HFA 90 MCG/* Inhale 2 Puffs as instructed * ALBUTEROL SULFATE 2.5 MG/3 ML* Use 3 mL via nebulizer three * TRIAMCINOLONE ACETONIDE TOPIC* Apply to affected area. COMPOUNDED PRESCRIPTION Nebulizer for home use. Diagn* COMPOUNDED PRESCRIPTION BLOOD PRESSURE CUFF FOR HOME * [id number]-WMG C-M* Take 1 capsule by mouth once * GUAIFENESIN ORAL Take by mouth. Problem List As Of Date 10/20/2019 Noted Resolved Coronary atherosclerosis [I25.10] More... Chronic obstructive asthma, unspecified [J44.9] 08/13/2019 Unspecified asthma, with status asthmaticus [J4* 08/13/2019 Pulmonary emphysema (HCC) [J43.9] More... Unspecified asthma(493.90) [J45.909] 08/13/2019 More... Nonspecific abnormal results of liver function *01/13/2007 0 11/11/2011 CONSTIPATION NOS [K59.00] 01/13/2007 Anemia, unspecified [D64.9] 01/14/2007 08/13/2019 Mixed hyperlipidemia [E78.2] 04/09/2007 More... History of squamous cell carcinoma of skin [Z85*11/16/2009 0 08/13/2019 More... Former smoker [Z87.891] 11/16/2009 Spinal stenosis [M48.00] 11/16/2009 More... REDDING (hard of hearing) [H91.90] 11/16/2009 08/13/2019 Incontinence of feces [787.6] 12/13/2009 08/13/2019 Benign neoplasm of colon [D12.6] 12/13/2009 08/13/2019 Basal cell carcinoma [C44.91] 09/25/2011 08/13/2019 More... Compound nevus of thigh [D22.70] 09/25/2011 08/13/2019 More... Insomnia [G47.00] 11/11/2011 More... Chronic serous otitis media [H65.20] 09/07/2014 08/13/2019 Hearing loss [H91.90] 09/07/2014 Hoarseness [R49.0] 09/07/2014 08/13/2019 History of CVA (cerebrovascular accident) [Z86.*12/12/2015 History of subdural hematoma [Z86.79] 12/16/2016 Depression [F32.9] 05/01/2017 Uses hearing aid [Z97.4] 10/31/2017 More... Vascular dementia, uncomplicated [F01.50] 12/05/2017 More... Fall with injury [W19.XXXA] 01/01/2018 More... External otitis of right ear [H60.91] 01/01/2018 08/13/2019 More... HTN (hypertension) [I10] 01/01/2018 More... DJD (degenerative joint disease) [M19.90] 01/01/2018 More... Chronic pain syndrome [G89.4] 01/01/2018 More... Chronic right shoulder pain [M25.511, G89.29] 07/20/2019 Primary osteoarthritis of right shoulder [M19.0*07/20/2019 Prescriptions ordered this encounter Disp Refills Start End CARVEDILOL 3.125 MG TABLET 180 * 3 10/20/2019 Route: ORAL Sig: Take 1 tablet by mouth twice daily. Medications Discontinued During This Encounter Prescriptions - carvedilol (COREG) 3.125 mg tablet (Discontinued) Take 1 tablet by mouth twice daily. Encounter Status:Closed by JENNY HYATT CNP on 10/20/19 obsolete on 2019-09 OBSOLETE Refill (INTMWS) Normal 10-04-2019 Jacob james ANEL Mcelroy ([id number]) 1935 [facility] Time Provider Department ([id number]) 10/04/19 SRIRAM VALDEZ INTMWS During your visit today, we recorded the following informati on about you: Aarti Tim 10/04/2019 10:38 AM Signed Patient has been identified by name and date of : Yes Pending Prescriptions Disp Refills OXYCODONE-ACETAMINOPHEN 10 MG-325 MG TABLET 60 tablet 0 Sig: Take 1 tablet by mouth twice daily as needed for up to 30 days. as needed DARELL Class: C-II JOS: No RX INSTRUCTIONS: Patient is requesting script is sent to [facility] today Patient aware RX will be sent to pharmacy. No need to notify patient. 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 Allergies As of Date: 10/04/2019 Noted Allergy Reaction AMBIEN (ZOLPIDEM) 12/28/2012 14 - Other: See Comments Comments: Hangover effect/body aches GABAPENTIN 07/18/2014 14 - Other: See Comments Comments: states that made me crazy; tremor and made her f orgetful SULFA (SULFONAMIDE ANTIBIOTICS) 08/07/2006 4 - Hives Date Reviewed: 08/30/2019 Reviewed by: Suzette Lopez LPN - Fully Assessed Reason for Visit: Refill Request [94] Visit Diagnoses:Leg pain, right [M79.604] Comment:Chronic pain; site of large hematome on right morelos from fall has healed almost completely. Swelling down. Pain in the muscles, right leg [M79.10] Spinal stenosis of lumbar region, unspecified whether neurogenic claudication present [M48.061] Comment:Percocet more effective than Hydrocodone. Will resume at [facility]. Prescriptions as of 10/04/2019 Sig: CELECOXIB 200 MG CAPSULE Take 1 capsule by mouth twice* DICLOFENAC 1 % TOPICAL GEL Apply 2 g to affected area fo* OXYCODONE-ACETAMINOPHEN 10 MG* Take 1 tablet by mouth twice * OXYCODONE-ACETAMINOPHEN 10 MG* Take 1 tablet by mouth twice * AMITRIPTYLINE 50 MG TABLET Take 1 tablet by mouth daily * IPRATROPIUM BROMIDE 42 MCG (0* Use 2 Sprays in the nose four * FLUTICASONE PROPIONATE 50 MCG* Use 1-2 Sprays in each nostri * CETIRIZINE 10 MG TABLET Take 1 tablet by mouth once d* DONEPEZIL 5 MG TABLET Take 1 tablet by mouth daily * OXYCODONE-ACETAMINOPHEN 10 MG* Take 1 tablet by mouth twice * CLOPIDOGREL 75 MG TABLET Take 1 tablet by mouth once d* HYDRALAZINE 10 MG TABLET Take 1 tablet by mouth four t* ATORVASTATIN 10 MG TABLET Take 1 tablet by mouth once d* CARVEDILOL 3.125 MG TABLET Take 1 tablet by mouth twice * POLYETHYLENE GLYCOL 3350 17 G* Take one (1) bottle, as instr * Patient not taking: Reported on 08/13/2019 BISACODYL 5 MG TABLET,DELAYED* Take two (2) tablets, at the * PHENYLEPHRINE 0.25 % RECTAL S* 1 Suppository by RECTAL route * Patient not taking: Reported on 08/13/2019 HYDROCORTISONE 2.5 % TOPICAL * 1 application by RECTAL route * TRIAMCINOLONE ACETONIDE 0.1 %* Apply 1 application to affect * ALBUTEROL SULFATE HFA 90 MCG/* Inhale 2 Puffs as instructed * ALBUTEROL SULFATE 2.5 MG/3 ML* Use 3 mL via nebulizer three * TRIAMCINOLONE ACETONIDE TOPIC* Apply to affected area. COMPOUNDED PRESCRIPTION Nebulizer for home use. Diagn* COMPOUNDED PRESCRIPTION BLOOD PRESSURE CUFF FOR HOME * [id number]-VWT C-M* Take 1 capsule by mouth once * GUAIFENESIN ORAL Take by mouth. Problem List As Of Date 10/04/2019 Noted Resolved Coronary atherosclerosis [I25.10] More... Chronic obstructive asthma, unspecified [J44.9] 08/13/2019 Unspecified asthma, with status asthmaticus [J4* 08/13/2019 Pulmonary emphysema (HCC) [J43.9] More... Unspecified asthma(493.90) [J45.909] 08/13/2019 More... Nonspecific abnormal results of liver function *01/13/2007 0 11/11/2011 CONSTIPATION NOS [K59.00] 01/13/2007 Anemia, unspecified [D64.9] 01/14/2007 08/13/2019 Mixed hyperlipidemia [E78.2] 04/09/2007 More... History of squamous cell carcinoma of skin [Z85*11/16/2009 0 08/13/2019 More... Former smoker [Z87.891] 11/16/2009 Spinal stenosis [M48.00] 11/16/2009 More... REDDING (hard of hearing) [H91.90] 11/16/2009 08/13/2019 Incontinence of feces [787.6] 12/13/2009 08/13/2019 Benign neoplasm of colon [D12.6] 12/13/2009 08/13/2019 Basal cell carcinoma [C44.91] 09/25/2011 08/13/2019 More... Compound nevus of thigh [D22.70] 09/25/2011 08/13/2019 More... Insomnia [G47.00] 11/11/2011 More... Chronic serous otitis media [H65.20] 09/07/2014 08/13/2019 Hearing loss [H91.90] 09/07/2014 Hoarseness [R49.0] 09/07/2014 08/13/2019 History of CVA (cerebrovascular accident) [Z86.*12/12/2015 History of subdural hematoma [Z86.79] 12/16/2016 Depression [F32.9] 05/01/2017 Uses hearing aid [Z97.4] 10/31/2017 More... Vascular dementia, uncomplicated [F01.50] 12/05/2017 More... Fall with injury [W19.XXXA] 01/01/2018 More... External otitis of right ear [H60.91] 01/01/2018 08/13/2019 More... HTN (hypertension) [I10] 01/01/2018 More... DJD (degenerative joint disease) [M19.90] 01/01/2018 More... Chronic pain syndrome [G89.4] 01/01/2018 More... Chronic right shoulder pain [M25.511, G89.29] 07/20/2019 Primary osteoarthritis of right shoulder [M19.0*07/20/2019 Encounter Status:Closed by LEIDA AHMADI CMA on 10/04/19 progress on 2019-09 PROGRESS HNO ID: [id number] Normal 09-20-[address] [facility] Author: Sriram Valdez Clifford ([id number]) Service: ? Author Type: Physician Type: Progress Notes Filed: 10/09/2019 2:46 PM Note Text: This Team Access Model visit is a phone encounter. It requir ed patient-provider interaction for the medical decision making as documented below. This note was created using eYeka. Subjective Anel Espino is a 83 year old female. Patient presents with: Pain: Chronic pain SUBJECTIVE: Anel Espino is a 83 year old year old lady here today fo r follow up appointment for review of medical conditions--chronic pain a nd need to discuss pain management options. Shoulder injection did not help in July (saw ). Pain every day and severe. Nothing so far has helped. Wondered what other options for meds were (see telephone enc ounters) Having to get up at night to pee since drinking more water p er instructions for renal protection from the Celebrex. Pain not waking her up at this time. PAST MEDICAL HISTORY Diagnosis Date - ABNORMAL LIVER FUNCTION STUDY 01/13/2007 - Anemia, unspecified 01/14/2007 - Basal cell carcinoma 09/25/2011 Superior umbilicus and left posterior calf, Sailaja Kan.Will follow annually every year, Due September 2012. 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 Dr. Jimenez. Had s een Dr. Huff - Unspecified asthma(493.90) - Unspecified constipation - Uses hearing aid 10/31/2017 forgot to wear today Current Outpatient Medications Medication Sig - celecoxib (CELEBREX) 200 mg capsule Take 1 capsule by mout h twice daily. take with food - diclofenac sodium (VOLTAREN) 1 % topical gel Apply 2 g to affected area four times daily as needed. - oxyCODONE-acetaminophen (PERCOCET) 10-325 mg tablet Take 1 tablet by mouth twice daily as needed for up to 30 days. as needed - [START ON 09/29/2019] oxyCODONE-acetaminophen (PERCOCET) 10 -325 mg tablet Take 1 tablet by mouth twice daily as needed for up to 30 da ys. as needed Do not start before September 29, 2019. - amitriptyline (ELAVIL) 50 mg tablet Take 1 tablet by mouth daily at bedtime. May take extra half pill nightly as needed for slee p - ipratropium bromide (ATROVENT) 42 mcg (0.06 %) nasal spray Use 2 Sprays in the nose four times daily as needed. - fluticasone (FLONASE) 50 mcg/actuation nasal spray Use 1-2 Sprays in each nostril once daily. Rinse mouth after use. For nasal dr rj - cetirizine (ZYRTEC) 10 mg tablet Take 1 tablet by mouth on ce daily. - donepezil (ARICEPT) 5 mg tablet Take 1 tablet by mouth cliff ly at bedtime. - oxyCODONE-acetaminophen (PERCOCET) 10-325 mg tablet Take 1 tablet by mouth twice daily as needed for up to 30 days. as needed - clopidogrel (PLAVIX) 75 mg tablet Take 1 tablet by mouth o nce daily. - hydrALAZINE (APRESOLINE) 10 mg tablet Take 1 tablet by duncan th four times daily as needed. For systolic blood pressure over 159 - atorvastatin (LIPITOR) 10 mg tablet Take 1 tablet by mouth once daily. - carvedilol (COREG) 3.125 mg tablet Take 1 tablet by mouth twice daily. - polyethylene glycol 3350 (MIRALAX, GLYCOLAX) 17 gram/dose powder Take one (1) bottle, as instructed for colonoscopy prep. (Patient not taking: Reported on 08/13/2019 ) - bisacodyl EC (DULCOLAX, BISACODYL,) 5 mg EC tablet Take tw o (2) tablets, at the designated times, as explained on the instruction she et provided. - PHENYLephrine 0.25 % suppository 1 Suppository by RECTAL r oute twice daily. (Patient not taking: Reported on 08/13/2019 ) - hydrocortisone (ANUSOL-HC) 2.5 % rectal cream 1 applicatio n by RECTAL route twice daily as needed. - triamcinolone acetonide (KENALOG) 0.1 % cream Apply 1 appl ication to affected area twice daily as needed. For eczematous rash on extremities and torso - albuterol HFA (PROVENTIL HFA, VENTOLIN HFA) 90 mcg/actuati on inhaler Inhale 2 Puffs as instructed every 6 hours as needed. - albuterol (PROVENTIL) 2.5 mg /3 mL (0.083 %) nebulizer abigail ution Use 3 mL via nebulizer three times daily as needed. OVER 5-15 MINUTES . FOR WHEEZING AND SHORTNESS OF BREATH. - TRIAMCINOLONE ACETONIDE TOPICAL Apply to affected area. - COMPOUNDED PRESCRIPTION Nebulizer for home use. Diagnosis: Emphysema, COPD exacerbation. Lifetime use. - Blood Pressure Cuff - Home Use BLOOD PRESSURE CUFF FOR FARHAN E USE. DX: LABILE BLOOD PRESSURE R09.89 - Yutscepzwyz-Brcecprhy-Txt C-Mn (GLUCOSAMINE CHONDROITIN MA XSTR) 500-400 mg cap Take 1 capsule by mouth once daily. - GUAIFENESIN ORAL Take by mouth. No current facility-administered medications for this visit. Review of Systems Objective There were no vitals taken for this visit. No Video--just phone call. Physical Exam Psychiatric: Attention and Perception: Attention normal. Mood and Affect: Mood is depressed. Speech: Speech normal. Behavior: Behavior is cooperative. Thought Content: Thought content normal. Assessment and Plan Encounter Diagnosis ICD-10-CM 1. Chronic right shoulder pain M25.511 CONSULT TO PALLIATIVE CARE G89.29 2. Primary osteoarthritis of right shoulder M19.011 CONSULT TO PALLIATIVE CARE Discuss chronic severe pain related to arthritis in her shou lder. She is not a surgical candidate given her multiple medical problems . Did not want to pursue formal pain management. Discussed the option of palliative care and was agreeable to this option. Has difficulty gettin g around. Reassured her this is not the same as hospice. Also discusse d with her limitations with primary care managing opiates at higher MME D--since her current Percocet prescription is oriented to 30 mm ED, using a stronger opiate crease in the frequency of the Percocet would get her up to the level where pain management referral is commended/required. She expressed understanding. Further evaluation and treatment as indicated. She will let me know if I need to help with anything else. Note that she does have a p rescription for her Percocet to be filled on or after September 28. Above issues addressed with patient. Patient involved in shared decision making for management of medical issues. History and medications reviewed. Epic updated as needed The majority of the visit was spent counseling and/or coordi nating care for the patient. Vjqa-uc-kynb time was at least 20 minutes. MD abe Cano on 2019-09-16 CNPN Telephone (INTMWS) Normal 09-16-2019 Clifford ANEL Mcelroy ([id number]) 1935 [facility] Date Time Provider Department ([id number]) 09/16/19 SRIRAM VALDEZ INTMWS During your visit today, we recorded the following informati on about you: Suzette Lopez LPN 09/16/2019 11:22 AM Signed Progress Notes Sriram Valdez (Physician) - - Internal Medicine 1) There is no rating for how strong one NSAID (nonsteroidal anti-inflammatory drug) as compared to another. She's been on Celebrex and nap roxen and meloxicam (on her med list here at the clinic). She wa nts to try a different NSAID, I can send another prescription. 2) The point of a phone or virtual visit would be to t alk to her directly to discuss options and see what she would prefer to do. 3) We have just started using palliative medicine more for help with chronic pain management. In the past, consults with them more for is sues such as congestive heart failure or severe COPD to help with other symptoms such as shortness of breath??in other words, patient's who may progr ess to needing hospice. Suzette Lopez LPN 09/16/2019 11:22 AM Signed Patient notified of provider response as noted i n patient outreach encounter. I scheduled a phone visit with PCP for t his Friday to discuss options. Patient reports that the arm pain is severe at times and may have to go to the ER before time of appointment. Sriram Valdez MD 09/16/2019 6:34 PM Signed Below noted. If pain is severe enough to need ER evaluation ,then she douglas uld seek care there. We do not have any meds at the clinic to give for sev ere pain. Will discuss with her options for managing pain next as noted below. Allergies As of Date: 09/16/2019 Noted Allergy Reaction AMBIEN (ZOLPIDEM) 12/28/2012 14 - Other: See Comments Comments: Hangover effect/body aches GABAPENTIN 07/18/2014 14 - Other: See Comments Comments: states that made me crazy; tremor and made her f orgetful SULFA (SULFONAMIDE ANTIBIOTICS) 08/07/2006 4 - Hives Date Reviewed: 08/30/2019 Reviewed by: Suzette Lopez LPN - Fully Assessed Reason for Visit: Clinical Update [1735] Prescriptions as of 09/16/2019 Sig: CELECOXIB 200 MG CAPSULE Take 1 capsule by mouth twice* DICLOFENAC 1 % TOPICAL GEL Apply 2 g to affected area fo* OXYCODONE-ACETAMINOPHEN 10 MG* Take 1 tablet by mouth twice * OXYCODONE-ACETAMINOPHEN 10 MG* Take 1 tablet by mouth twice * AMITRIPTYLINE 50 MG TABLET Take 1 tablet by mouth daily * IPRATROPIUM BROMIDE 42 MCG (0* Use 2 Sprays in the nose four * FLUTICASONE PROPIONATE 50 MCG* Use 1-2 Sprays in each nostri * CETIRIZINE 10 MG TABLET Take 1 tablet by mouth once d* DONEPEZIL 5 MG TABLET Take 1 tablet by mouth daily * OXYCODONE-ACETAMINOPHEN 10 MG* Take 1 tablet by mouth twice * CLOPIDOGREL 75 MG TABLET Take 1 tablet by mouth once d* HYDRALAZINE 10 MG TABLET Take 1 tablet by mouth four t* ATORVASTATIN 10 MG TABLET Take 1 tablet by mouth once d* CARVEDILOL 3.125 MG TABLET Take 1 tablet by mouth twice * POLYETHYLENE GLYCOL 3350 17 G* Take one (1) bottle, as instr * Patient not taking: Reported on 08/13/2019 BISACODYL 5 MG TABLET,DELAYED* Take two (2) tablets, at the * PHENYLEPHRINE 0.25 % RECTAL S* 1 Suppository by RECTAL route * Patient not taking: Reported on 08/13/2019 HYDROCORTISONE 2.5 % TOPICAL * 1 application by RECTAL route * TRIAMCINOLONE ACETONIDE 0.1 %* Apply 1 application to affect * ALBUTEROL SULFATE HFA 90 MCG/* Inhale 2 Puffs as instructed * ALBUTEROL SULFATE 2.5 MG/3 ML* Use 3 mL via nebulizer three * TRIAMCINOLONE ACETONIDE TOPIC* Apply to affected area. COMPOUNDED PRESCRIPTION Nebulizer for home use. Diagn* COMPOUNDED PRESCRIPTION BLOOD PRESSURE CUFF FOR HOME * YHRBYLEEXUU-IELDVFVYZ-ODP C-M* Take 1 capsule by mouth once * GUAIFENESIN ORAL Take by mouth. Problem List As Of Date 09/16/2019 Noted Resolved Coronary atherosclerosis [I25.10] More... Chronic obstructive asthma, unspecified [J44.9] 08/13/2019 Unspecified asthma, with status asthmaticus [J4* 08/13/2019 Pulmonary emphysema (HCC) [J43.9] More... Unspecified asthma(493.90) [J45.909] 08/13/2019 More... Nonspecific abnormal results of liver function *01/13/2007 0 11/11/2011 CONSTIPATION NOS [K59.00] 01/13/2007 Anemia, unspecified [D64.9] 01/14/2007 08/13/2019 Mixed hyperlipidemia [E78.2] 04/09/2007 More... History of squamous cell carcinoma of skin [Z85*11/16/2009 0 08/13/2019 More... Former smoker [Z87.891] 11/16/2009 Spinal stenosis [M48.00] 11/16/2009 More... REDDING (hard of hearing) [H91.90] 11/16/2009 08/13/2019 Incontinence of feces [787.6] 12/13/2009 08/13/2019 Benign neoplasm of colon [D12.6] 12/13/2009 08/13/2019 Basal cell carcinoma [C44.91] 09/25/2011 08/13/2019 More... Compound nevus of thigh [D22.70] 09/25/2011 08/13/2019 More... Insomnia [G47.00] 11/11/2011 More... Chronic serous otitis media [H65.20] 09/07/2014 08/13/2019 Hearing loss [H91.90] 09/07/2014 Hoarseness [R49.0] 09/07/2014 08/13/2019 History of CVA (cerebrovascular accident) [Z86.*12/12/2015 History of subdural hematoma [Z86.79] 12/16/2016 Depression [F32.9] 05/01/2017 Uses hearing aid [Z97.4] 10/31/2017 More... Vascular dementia, uncomplicated [F01.50] 12/05/2017 More... Fall with injury [W19.XXXA] 01/01/2018 More... External otitis of right ear [H60.91] 01/01/2018 08/13/2019 More... HTN (hypertension) [I10] 01/01/2018 More... DJD (degenerative joint disease) [M19.90] 01/01/2018 More... Chronic pain syndrome [G89.4] 01/01/2018 More... Chronic right shoulder pain [M25.511, G89.29] 07/20/2019 Primary osteoarthritis of right shoulder [M19.0*07/20/2019 Encounter Status:Closed by SRIRAM VALDEZ MD on 09/16/19 progress on 2019-08 PROGRESS HNO ID: [id number] Normal 09-10-[address] [facility] Author: Sriram Valdez Clifford ([id number]) Service: ? Author Type: Physician Type: Progress Notes Filed: 09/10/2019 5:58 PM Note Text: 1) There is no rating for how strong one NSAID (nonsteroidal anti-inflammatory drug) as compared to another. She's been o n Celebrex and naproxen and meloxicam (on her med list here at the [facility]). She wants to try a different NSAID, I can send another prescript ion. 2) The point of a phone or virtual visit would be to talk to her directly to discuss options and see what she would prefer to do. 3) We have just started using palliative medicine more for h elp with chronic pain management. In the past, consults with them mor e for issues such as congestive heart failure or severe COPD to help with other symptoms such as shortness of breath??in other words, patioscar t's who may progress to needing hospice. PROGRESS HNO ID: [id number] Normal 09-10-[address] [facility] Author: Leida Ahmadi [facility] ([id number]) Service: ? Author Type: ? Type: Progress Notes Filed: 09/10/2019 9:45 AM Note Text: Needs something stronger then celebrex it is not helping her pain making it worse. Arm jerks. Declined phone and virtual visit states the only thing I ca n tell her is what I told you. She asked why they haven't tried to order palliative medicin e before? progress on 2019-08 PROGRESS HNO ID: [id number] Normal 09-09-[address] [facility] Author: Sriram Valdez Clifford ([id number]) Service: ? Author Type: Physician Type: Progress Notes Filed: 09/09/2019 9:59 AM Note Text: Check with patient if has specific request for pain medicati on adjustments. Offer telephone or virtual visit. Consider palliative medicine consult to help with managing h er pain?they could go to her home as if she qualifies for their services, they could help with adjusting pain meds as needed. Reassure her this i s not the same as being on Hospice progress on 2019-08 PROGRESS HNO ID: [id number] Normal 09-07-2019 [facility] Author: Mateo (Rn) KARLIE Vance ([id number]) Service: ? Author Type: Registered Nurse Type: Progress Notes Filed: 09/07/2019 4:41 PM Note Text: HIGH RISK CHRONIC DISEASE MONITORING Provider Action/FYI: Contact made with patient: Yes Patient identified by name and . Discussed care with patient Hi my name is Mateo Vance RN and I am calling from the [facility]. Today you spoke with [employer] today and shared that you have h ad difficulty reaching your PCP.l SYMPTOMS: I'd like to ask some question about how you are managing you r health. Would that be OK? Yes Do you have any new or worsening symptoms that you'd like to discuss with a provider? Patient stated yes ? Member is having increased right arm pa in. She informed she has tried to call Dr. Eric?s office three t imes yesterday and was put on hold for over 10 minutes. Member tried to polo l the office again today and she was put on hold again. Member is trying to reach Dr. Eric to see if she can isael nge get her medication prescribed for her right arm pain. She takes Percocet and celecoxib 200mg and the celecoxib is not working. Member had Laser surgery on her left eye and and she is havi ng trouble putting her eye drops in d/t the pain in her right arm. Because you've indicated you have symptoms, I'd like to get some basic information I can share with a provider so they can assist y ou. ? What is the main symptom you have noticed? ? continued arm pain ? Would you consider your symptoms severe enough to require immediate care? ? No ? Is it a new symptom? ? No ? Is it getting better, worse or staying the same? ? Staying the same ACTION TAKEN: No Symptoms - Continue phone call - related to chronic disea se worsening Outreach Ended Mateo Vance RN cnptoutreach on CNPTOUTREACH Patient Outreach (NETNAV) Normal 0 09-07-2019 [facility] ANEL ESPINO ([id number]) 1935 F [place] Date Time Provider Department ([id number]) 09/07/19 SRIRAM VALDEZ During your visit today, we recorded the following informati on about you: Mateo Vance RN, RN 09/07/2019 4:41 PM Signed HIGH RISK CHRONIC DISEASE MONITORING Provider Action/FYI: Contact made with patient: Yes Patient identified by name and . Discussed care with patient Hi my name is Mateo Vance RN and I am ca rafaing from the [facility]. Today you spoke with Adolfoa today and shared that you have h ad difficulty reaching your PCP.l SYMPTOMS: I'd like to ask some question about how you are managing y our health. Would that be OK? Yes Do you have any new or worsening symptoms that you'd like to discuss with a provider? Patient stated yes ? Member is having increased right arm pain. She informed she has tried to call Dr. Eric?s office thre e times yesterday and was put on hold for over 10 minutes. Member tried to call the office again today and she was put on hold again. Member is trying to reach Dr. Eric to see if she can isael nge get her medication prescribed for her right arm pain. She takes Percocet and celecoxib 200mg and the celecoxib is not working. Member had Laser surgery on her left eye and and she is having trouble putting her eye drops in d/t the pain in her right arm. Because you've indicated you have symptoms, I'd like to get some basic information I can share with a provider so they can assist y ou. ? What is the main symptom you have noticed? ? continued arm pain ? Would you consider your symptoms severe enough to requir e immediate care? ? No ? Is it a new symptom? ? No ? Is it getting better, worse or staying the same? ? Staying the same ACTION TAKEN: No Symptoms - Continue phone call - related to chronic disea se worsening Outreach Ended KARLIE Lunsford MD 09/09/2019 9:59 AM Signed Check with patient if has specific request for pain medica tion adjustments. Offer telephone or virtual visit. Consider palliative medicine consult to help with managing her pain?they could go to her home as if she qualifies for their services, the y could help with adjusting pain meds as needed. Reassure her this is no t the same as being on [facility] Le[facility] [employer] 09/10/2019 9:45 AM Addendum Needs something stronger then celebrex it is not helping h er pain making it worse. Arm jerks. Declined phone and virtual visit states the only thing I can tell her is what I told you. She asked why they haven't tried to order palliative medicin e before? Sriram Valdez MD 09/10/2019 5:58 PM Signed 1) There is no rating for how strong one NSAID (nonsteroidal anti-inflammatory drug) as compared to another. She's been on Celebrex and nap roxen and meloxicam (on her med list here at the clinic). She wa nts to try a different NSAID, I can send another prescription. 2) The point of a phone or virtual visit would be to t alk to her directly to discuss options and see what she would prefer to do. 3) We have just started using palliative medicine more for help with chronic pain management. In the past, consults with them more for is sues such as congestive heart failure or severe COPD to help with other symptoms such as shortness of breath??in other words, patient's who may progr ess to needing hospice. Allergies As of Date: 09/07/2019 Noted Allergy Reaction AMBIEN (ZOLPIDEM) 12/28/2012 14 - Other: See Comments Comments: Hangover effect/body aches GABAPENTIN 07/18/2014 14 - Other: See Comments Comments: states that made me crazy; tremor and made her f orgetful SULFA (SULFONAMIDE ANTIBIOTICS) 08/07/2006 4 - Hives Date Reviewed: 08/30/2019 Reviewed by: Suzette Lopez LPN - Fully Assessed Reason for Visit: Care Coordination [[id number]] Prescriptions as of 09/07/2019 Sig: CELECOXIB 200 MG CAPSULE Take 1 capsule by mouth twice* DICLOFENAC 1 % TOPICAL GEL Apply 2 g to affected area fo* OXYCODONE-ACETAMINOPHEN 10 MG* Take 1 tablet by mouth twice * OXYCODONE-ACETAMINOPHEN 10 MG* Take 1 tablet by mouth twice * AMITRIPTYLINE 50 MG TABLET Take 1 tablet by mouth daily * IPRATROPIUM BROMIDE 42 MCG (0* Use 2 Sprays in the nose four * FLUTICASONE PROPIONATE 50 MCG* Use 1-2 Sprays in each nostri * CETIRIZINE 10 MG TABLET Take 1 tablet by mouth once d* DONEPEZIL 5 MG TABLET Take 1 tablet by mouth daily * OXYCODONE-ACETAMINOPHEN 10 MG* Take 1 tablet by mouth twice * CLOPIDOGREL 75 MG TABLET Take 1 tablet by mouth once d* HYDRALAZINE 10 MG TABLET Take 1 tablet by mouth four t* ATORVASTATIN 10 MG TABLET Take 1 tablet by mouth once d* CARVEDILOL 3.125 MG TABLET Take 1 tablet by mouth twice * POLYETHYLENE GLYCOL 3350 17 G* Take one (1) bottle, as instr * Patient not taking: Reported on 08/13/2019 BISACODYL 5 MG TABLET,DELAYED* Take two (2) tablets, at the * PHENYLEPHRINE 0.25 % RECTAL S* 1 Suppository by RECTAL route * Patient not taking: Reported on 08/13/2019 HYDROCORTISONE 2.5 % TOPICAL * 1 application by RECTAL route * TRIAMCINOLONE ACETONIDE 0.1 %* Apply 1 application to affect * ALBUTEROL SULFATE HFA 90 MCG/* Inhale 2 Puffs as instructed * ALBUTEROL SULFATE 2.5 MG/3 ML* Use 3 mL via nebulizer three * TRIAMCINOLONE ACETONIDE TOPIC* Apply to affected area. COMPOUNDED PRESCRIPTION Nebulizer for home use. Diagn* COMPOUNDED PRESCRIPTION BLOOD PRESSURE CUFF FOR HOME * [id number]-[id number] C-M* Take 1 capsule by mouth once * GUAIFENESIN ORAL Take by mouth. Problem List As Of Date 09/07/2019 Noted Resolved Coronary atherosclerosis [I25.10] More... Chronic obstructive asthma, unspecified [J44.9] 08/13/2019 Unspecified asthma, with status asthmaticus [J4* 08/13/2019 Pulmonary emphysema (HCC) [J43.9] More... Unspecified asthma(493.90) [J45.909] 08/13/2019 More... Nonspecific abnormal results of liver function *01/13/2007 0 11/11/2011 CONSTIPATION NOS [K59.00] 01/13/2007 Anemia, unspecified [D64.9] 01/14/2007 08/13/2019 Mixed hyperlipidemia [E78.2] 04/09/2007 More... History of squamous cell carcinoma of skin [Z85*11/16/2009 0 08/13/2019 More... Former smoker [Z87.891] 11/16/2009 Spinal stenosis [M48.00] 11/16/2009 More... REDDING (hard of hearing) [H91.90] 11/16/2009 08/13/2019 Incontinence of feces [787.6] 12/13/2009 08/13/2019 Benign neoplasm of colon [D12.6] 12/13/2009 08/13/2019 Basal cell carcinoma [C44.91] 09/25/2011 08/13/2019 More... Compound nevus of thigh [D22.70] 09/25/2011 08/13/2019 More... Insomnia [G47.00] 11/11/2011 More... Chronic serous otitis media [H65.20] 09/07/2014 08/13/2019 Hearing loss [H91.90] 09/07/2014 Hoarseness [R49.0] 09/07/2014 08/13/2019 History of CVA (cerebrovascular accident) [Z86.*12/12/2015 History of subdural hematoma [Z86.79] 12/16/2016 Depression [F32.9] 05/01/2017 Uses hearing aid [Z97.4] 10/31/2017 More... Vascular dementia, uncomplicated [F01.50] 12/05/2017 More... Fall with injury [W19.XXXA] 01/01/2018 More... External otitis of right ear [H60.91] 01/01/2018 08/13/2019 More... HTN (hypertension) [I10] 01/01/2018 More... DJD (degenerative joint disease) [M19.90] 01/01/2018 More... Chronic pain syndrome [G89.4] 01/01/2018 More... Chronic right shoulder pain [M25.511, G89.29] 07/20/2019 Primary osteoarthritis of right shoulder [M19.0*07/20/2019 Encounter Status:Closed by VANCE, MATEO on 09/07/19 progress on 2019-08 PROGRESS HNO ID: [id number] Normal 08-30-[address] [facility] Author: Sriram Valdez [place] ([id number]) Service: ? Author Type: Physician Type: Progress Notes Filed: 09/12/2019 5:10 PM Note Text: This note was created using FOCUS Trainrriter. Subjective Anel Espino is a 83 year old female. Patient presents with: Follow Up SUBJECTIVE: Anel Espino is a 83 year old year old lady here today fo r follow up appointment for review of medical conditions. CKD 3 discussed and NSAIDs--taking Celebrex 1 to per day. Has tried Biofreeze--helps some Aspercream--kearney her. Diclofenac for bruising and redness given by friend Noted bruising easily--Plavix discussed. Trying Neuriva brain performance.$40. Has Phosphatidylserine and Coffee fruit extract plus B6, folate, B12 Tried Prevagen--did not help much. Neuriva seems to be helpi ng with more alertness and able to get up easier in the AM Did not get August 17 RX for percocet that was sent in. Was not told that was sent. PAST MEDICAL HISTORY Diagnosis Date - ABNORMAL LIVER FUNCTION STUDY 01/13/2007 - Anemia, unspecified 01/14/2007 - Basal cell carcinoma 09/25/2011 Superior umbilicus and left posterior calf, Sailaja Kan.Will follow annually every year, Due September 2012. 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 Dr. Jimenez. Had s een Dr. Huff - Unspecified asthma(493.90) - Unspecified constipation - Uses hearing aid 10/31/2017 forgot to wear today Current Outpatient Medications Medication Sig - oxyCODONE-acetaminophen (PERCOCET) 10-325 mg tablet Take 1 tablet by mouth twice daily as needed for up to 30 days. as needed Do not start before August 18, 2019. - amitriptyline (ELAVIL) 50 mg tablet Take 1 tablet by mouth daily at bedtime. May take extra half pill nightly as needed for slee p - ipratropium bromide (ATROVENT) 42 mcg (0.06 %) nasal spray Use 2 Sprays in the nose four times daily as needed. - fluticasone (FLONASE) 50 mcg/actuation nasal spray Use 1-2 Sprays in each nostril once daily. Rinse mouth after use. For nasal dr rj - celecoxib (CELEBREX) 200 mg capsule Take 1 capsule by mout h once daily. take with food - cetirizine (ZYRTEC) 10 mg tablet Take 1 tablet by mouth on ce daily. - donepezil (ARICEPT) 5 mg tablet Take 1 tablet by mouth cliff ly at bedtime. - clopidogrel (PLAVIX) 75 mg tablet Take 1 tablet by mouth o nce daily. - hydrALAZINE (APRESOLINE) 10 mg tablet Take 1 tablet by duncan th four times daily as needed. For systolic blood pressure over 159 - atorvastatin (LIPITOR) 10 mg tablet Take 1 tablet by mouth once daily. - carvedilol (COREG) 3.125 mg tablet Take 1 tablet by mouth twice daily. - bisacodyl EC (DULCOLAX, BISACODYL,) 5 mg EC tablet Take tw o (2) tablets, at the designated times, as explained on the instruction she et provided. - hydrocortisone (ANUSOL-HC) 2.5 % rectal cream 1 applicatio n by RECTAL route twice daily as needed. - triamcinolone acetonide (KENALOG) 0.1 % cream Apply 1 appl ication to affected area twice daily as needed. For eczematous rash on extremities and torso - albuterol HFA (PROVENTIL HFA, VENTOLIN HFA) 90 mcg/actuati on inhaler Inhale 2 Puffs as instructed every 6 hours as needed. - albuterol (PROVENTIL) 2.5 mg /3 mL (0.083 %) nebulizer abigail ution Use 3 mL via nebulizer three times daily as needed. OVER 5-15 MINUTES . FOR WHEEZING AND SHORTNESS OF BREATH. - TRIAMCINOLONE ACETONIDE TOPICAL Apply to affected area. - COMPOUNDED PRESCRIPTION Nebulizer for home use. Diagnosis: Emphysema, COPD exacerbation. Lifetime use. - Blood Pressure Cuff - Home Use BLOOD PRESSURE CUFF FOR FARHAN E USE. DX: LABILE BLOOD PRESSURE R09.89 - Ftatdldbirj-Kjgbhmmrq-Rcm C-Mn (GLUCOSAMINE CHONDROITIN MA XSTR) 500-400 mg cap Take 1 capsule by mouth once daily. - oxyCODONE-acetaminophen (PERCOCET) 10-325 mg tablet Take 1 tablet by mouth twice daily as needed for up to 30 days. as needed - polyethylene glycol 3350 (MIRALAX, GLYCOLAX) 17 gram/dose powder Take one (1) bottle, as instructed for colonoscopy prep. (Patient not taking: Reported on 08/13/2019 ) - PHENYLephrine 0.25 % suppository 1 Suppository by RECTAL r oute twice daily. (Patient not taking: Reported on 08/13/2019 ) - GUAIFENESIN ORAL Take by mouth. No current facility-administered medications for this visit. Review of Systems Objective BP 130/64 Pulse 68 Resp 20 Wt 64.4 kg (142 lb) BMI 2 1.59 kg/m? Physical Exam Constitutional: General: She is not in acute distress. Appearance: She is not toxic-appearing or diaphoretic. Comments: Chronically ill appearance. HENT: Head: Normocephalic. Eyes: Conjunctiva/sclera: Conjunctivae normal. Cardiovascular: Rate and Rhythm: Normal rate and regular rhythm. Heart sounds: Normal heart sounds. Pulmonary: Effort: Pulmonary effort is normal. Breath sounds: Normal breath sounds. Musculoskeletal: Comments: Bilateral ankle edema Skin: General: Skin is warm and dry. Findings: Bruising (Scattered on arms and legs) present. Neurological: General: No focal deficit present. Mental Status: She is alert and oriented to person, place, a nd time. Psychiatric: Attention and Perception: Attention normal. Mood and Affect: Mood is depressed. Speech: Speech normal. Behavior: Behavior normal. Thought Content: Thought content normal. Judgment: Judgment normal. From [facility] labs done for Dr. Rogers. Result Name Value Range Unit Interpretation Flag Date Locati on liver profile on 2019-08-10 Albumin [Mass/Vol] 3.4 3.2-5.0 g/dL Normal 08-10-2019 [facility] ([id number]) Comment: Performed By: #### L500.3400, L500.4100 #### [facility] [address] [place], [address] ALK P 84 45-117 U/L Normal 08-10-2019 [facility] ([id number]) Comment: Performed By: #### L500.3400, L500.4100 #### [facility] [address] [place], [address] ALT [Catalytic activity/Vol] 16 13-56 U/L Normal 08-10-2019 [facility] ([id number]) Comment: Performed By: #### L500.3400, L500.4100 #### [facility] [address] [place], [address] AST [Catalytic activity/Vol] 18 15-37 U/L Normal 08-10-2019 [facility] ([id number]) Comment: Performed By: #### L500.3400, L500.4100 #### [facility] [address] [place], [address] Bilirubin [Mass/Vol] 0.30 0.20-1.00 mg/dL Normal 08-10-2019 [facility] ([id number]) Comment: Result Comment: For patients on eltrombopag therapy , use of Dimension [place] TBIL is not recommended. ? Performed By: #### L500.3400, L500.4100 #### [facility] [address] [place], [address] Bilirubin.direct [Mass/Vol] 0.10 0.00-0.30 mg/dL Normal 07-16 [facility] ([id number]) Comment: Performed By: #### L500.3400, L500.4100 #### [facility] [address] [place], [address] Globulin (S) [Mass/Vol] 3.0 2.2-4.2 g/dL Normal 08-10-2019 [facility] ([id number]) Comment: Performed By: #### L500.3400, L500.4100 #### [facility] [address] [place], [address] T PROT 6.4 6.4-8.2 g/dL Normal 08-10-2019 [facility] ([id number]) Comment: Performed By: #### L500.3400, L500.4100 #### [facility] [address] [place], [address] lipid profile on 2019-08-10 Cholesterol [Mass/Vol] 185 200 mg/dL Normal 08-10-2019 [facility] ([id number]) Comment: Result Comment: <200 mg/dL Desirable 200-240 mg/dL Borderline >240 mg/dL High Risk ? Performed By: #### L500.3400, L500.4100 #### [facility] [address] [place], [address] Cholesterol in HDL [Mass/Vol] 72 ? mg/dL Normal 08-10-2019 [facility] ([id number]) Comment: Result Comment: The drugs N-Acetylcysteine and [place] mizole may falsely depress this assay. Reference Range HDL <40 mg/dL Low HDL Cholesterol HDL >or= 60 mg/dL High HDL Cholesterol ? Performed By: #### L500.3400, L500.4100 #### [facility] [address] [place], [address] Cholesterol in LDL [Mass/Vol] 83 0-130 mg/dL Normal 08-10-19 [facility] ([id number]) Comment: Performed By: #### L500.3400, L500.4100 #### [facility] [address] [place], [address] Cholesterol in VLDL [Mass/Vol] 30 5-40 mg/dL Normal 08-10-19 [facility] ([id number]) Comment: Performed By: #### L500.3400, L500.4100 #### [facility] [address] [place], [address] Triglyceride [Mass/Vol] 151 ? mg/dL Normal 08-10-2019 [facility] ([id number]) Comment: Result Comment: The drugs N-Acetylcysteine and [place] mizole may falsely depress this assay. Serum Triglycerides Reference Interval Normal <150 mg/dL Borderline high 150 - 199 mg/dL High 200 - 499 mg/dL Very High > or = 500 mg/dL ? Performed By: #### L500.3400, L500.4100 #### [facility] [address] [place], [address] Assessment and Plan Encounter Diagnosis ICD-10-CM 1. Chronic right shoulder pain M25.511 celecoxib (CELEBREX) 200 mg capsule G89.29 2. Pain in both wrists M25.531 diclofenac sodium (VOLTAREN) 1 % topical gel M25.532 3. Essential hypertension I10 BASIC METABOLIC PNL CBC 4. Mixed hyperlipidemia E78.2 5. Leg pain, right M79.604 oxyCODONE-acetaminophen (PERCOCET ) 10-325 mg tablet oxyCODONE-acetaminophen (PERCOCET) 10-325 mg tablet Chronic pain; site of large hematome on right morelos from fall has healed almost completely. Swelling down. 6. Pain in the muscles, right leg M79.10 oxyCODONE-acetamino phen (PERCOCET) 10-325 mg tablet oxyCODONE-acetaminophen (PERCOCET) 10-325 mg tablet 7. Arthritis of shoulder M19.019 celecoxib (CELEBREX) 200 mg capsule diclofenac sodium (VOLTAREN) 1 % topical gel 8. Spinal stenosis of lumbar region, unspecified whether yoselin rogenic claudication present M48.061 oxyCODONE-acetaminophen (PERCOC ET) 10-325 mg tablet oxyCODONE-acetaminophen (PERCOCET) 10-325 mg tablet Percocet more effective than Hydrocodone. Will resume at BID . 9. Encounter for long-term current use of medication Z79.899 BASIC METABOLIC PNL CBC 10. CKD (chronic kidney disease) stage 3, GFR 30-59 ml/min ( [facility]) N18.3 Importance of hydration with taking Celebrex discussed. See Patient Instructions. 11. Anticoagulant long-term use Z79.01 Associated easy bruising discussed. Hydration and skin emoll ients discussd. Above issues addressed with patient. Patient involved in shared decision making for management of medical issues. History and medications reviewed. Epic updated as needed Refills and/or prescriptions taken care of and meds adjusted as indicated after reviewed history, exam and labs. Health Maintenance reviewed. Updated record and/or ordered t ests as recorded. Encouraged on efforts at healthy diet and regular exercise a nd adequate sleep. Stable with pain control though still has severe pain that w ishes were better. Meds at least take the edge off--worse without the p ain med. No signs of diversion or abuse of medication(s); no adverse eff ects. Continue present management. Hard for her to get to appointments. Zachery mejia make referrals as indicated for subspecialists. At this time bene fits outweigh risks. Continue to monitor for adverse effects and indicatio ns for decreasing dose or tapering off. Benefit of taking Celebrex outweighs risks of renal issues a t this time. Adequate hydration needed as discused. Further evaluation an d treatment as indicated. The majority of the visit was spent counseling and/or coordi nating care for the patient. Hxcv-vu-fhev time was at least 40 minutes. MD karen Canoov on 2019-08-30 CNOV Office Visit (INTMWS) Normal 08-30-19 20 Clifford ANEL Mcelroy ([id number]) 1935 F [place] Date Time Provider Department ([id number]) 08/30/19 4:40 PM SRIRAM VALDEZ INTMWS During your visit today, we recorded the following informati on about you: Pulse Respiration Blood pressure Weight 68/minute 20/minute 130/64 64.4 kg Sriram Valdez MD 09/12/2019 5:10 PM Signed This note was created using FOCUS Trainrriter. Subjective Anel Espino is a 83 year old female. Patient presents with: Follow Up SUBJECTIVE: Anel Espino is a 83 year old year old lady here today fo r follow up appointment for review of medical conditions. CKD 3 discussed and NSAIDs--taking Celebrex 1 to per day. Has tried Biofreeze--helps some Aspercream--kearney her. Diclofenac for bruising and redness given by friend Noted bruising easily--Plavix discussed. Trying Neuriva brain performance.$40. Has Phosph atidylserine and Coffee fruit extract plus B6, folate, B12 Tried Prevagen--did not help much. Neuriva seems to be helpi ng with more alertness and able to get up easier in the AM Did not get August 17 RX for percocet that was sent in. Was not told that was sent. PAST MEDICAL HISTORY Diagnosis Date - ABNORMAL LIVER FUNCTION STUDY 01/13/2007 - Anemia, unspecified 01/14/2007 - Basal cell carcinoma 09/25/2011 Superior umbilicus and left posterior calf, Sailaja Suárez.Will follow annually every year, Due September 2012. 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 Dr. Jimenez. Had s een Dr. Huff - Unspecified asthma(493.90) - Unspecified constipation - Uses hearing aid 10/31/2017 forgot to wear today Current Outpatient Medications Medication Sig - oxyCODONE-acetaminophen (PERCOCET) 10-325 mg tablet Take 1 tablet by mouth twice daily as needed for up to 30 days. as needed Do not start before August 18, 2019. - amitriptyline (ELAVIL) 50 mg tablet Ta ke 1 tablet by mouth daily at bedtime. May take extra half pill nightly as needed for sleep - ipratropium bromide (ATROVENT) 42 mcg (0.06 %) nasal spray Use 2 Sprays in the nose four times daily as needed. - fluticasone (FLONASE) 50 mcg/actuation nasal spray Use 1 -2 Sprays in each nostril once daily. Rinse mouth after use. For nasal drainag e - celecoxib (CELEBREX) 200 mg capsule Ta ke 1 capsule by mouth once daily. take with food - cetirizine (ZYRTEC) 10 mg tablet Take 1 tablet by mouth on ce daily. - donepezil (ARICEPT) 5 mg tablet Take 1 tablet by mouth cliff ly at bedtime. - clopidogrel (PLAVIX) 75 mg tablet Take 1 tablet by mouth o nce daily. - hydrALAZINE (APRESOLINE) 1 0 mg tablet Take 1 tablet by mouth four times daily as needed. For systolic blood pressure over 159 - atorvastatin (LIPITOR) 10 mg tablet Take 1 tablet by mouth once daily. - carvedilol (COREG) 3.125 mg tablet Take 1 tablet by mouth twice daily. - bisacodyl EC (DULCOLAX, BISACODYL,) 5 mg EC ta blet Take two (2) tablets, at the designated times, as explained on the instruction sheet provided. - hydrocortisone (ANUSOL-HC) 2.5 % rectal cream 1 application by RECTAL route twice daily as needed. - triamcinolone acetonide (K ENALOG) 0.1 % cream Apply 1 application to affected area twice daily as needed. For eczematous rash on extremiti es and torso - albuterol HFA (PROVENTIL H FA, VENTOLIN HFA) 90 mcg/actuation inhaler Inhale 2 Puffs as instructed every 6 hours as needed. - albuterol (PROVENTIL) 2.5 mg /3 mL (0. 083 %) nebulizer solution Use 3 mL via nebulizer three times daily as needed. OVER 5-15 MINUTES. FO R WHEEZING AND SHORTNESS OF BREATH. - TRIAMCINOLONE ACETONIDE TOPICAL Apply to affected area. - COMPOUNDED PRESCRIPTION Nebulizer for home use. Diag nosis: Emphysema, COPD exacerbation. Lifetime use. - Blood Pressure Cuff - Home Use BLOOD PRESSURE CUFF FOR HOME USE. DX: LABILE BLOOD PRESSURE R09.89 - Xbkaquwoumu-Wkrmxbkgb-Hik C-Mn (GLUCOSAMINE CHONDROI TIN MAXSTR) 500-400 mg cap Take 1 capsule by mouth once daily. - oxyCODONE-acetaminophen (PERCOCET) 10-325 mg tablet Take 1 tablet by mouth twice daily as needed for up to 30 days. as needed - polyethylene glycol 3350 ( MIRALAX, GLYCOLAX) 17 gram/dose powder Take one (1) bottle, as instructed for colonoscopy prep. (Patient n ot taking: Reported on 08/13/2019 ) - PHENYLephrine 0.25 % suppository 1 Suppository by RECTAL route twice daily. (Patient not taking: Reported on 08/13/2019 ) - GUAIFENESIN ORAL Take by mouth. No current facility-administered medications for this visit. Review of Systems Objective BP 130/64 Pulse 68 Resp 20 Wt 64.4 kg (142 lb) BMI 2 1.59 kg/m? Physical Exam Constitutional: General: She is not in acute distress. Appearance: She is not toxic-appearing or diaphoretic. Comments: Chronically ill appearance. HENT: Head: Normocephalic. Eyes: Conjunctiva/sclera: Conjunctivae normal. Cardiovascular: Rate and Rhythm: Normal rate and regular rhythm. Heart sounds: Normal heart sounds. Pulmonary: Effort: Pulmonary effort is normal. Breath sounds: Normal breath sounds. Musculoskeletal: Comments: Bilateral ankle edema Skin: General: Skin is warm and dry. Findings: Bruising (Scattered on arms and legs) present. Neurological: General: No focal deficit present. Mental Status: She is alert and oriented to person, place, a nd time. Psychiatric: Attention and Perception: Attention normal. Mood and Affect: Mood is depressed. Speech: Speech normal. Behavior: Behavior normal. Thought Content: Thought content normal. Judgment: Judgment normal. From [facility] labs done for Dr. Rogers. Result Name Value Range Unit Interpretation Flag Date Locati on liver profile on 2019-08-10 Albumin [Mass/Vol] 3.4 3.2-5.0 g/dL Normal 08-10-2019 [facility] ([id number]) Comment: Performed By: #### L500.3400, L500.4100 #### [facility] [address] [place], [address] ALK P 84 45-117 U/L Normal 08-10-2019 [facility] ([id number]) Comment: Performed By: #### L500.3400, L500.4100 #### [facility] [address] [place], [address] ALT [Catalytic activity/Vol] 16 13-56 U/L Normal 08-10-2019 [facility] ([id number]) Comment: Performed By: #### L500.3400, L500.4100 #### [facility] [address] [place], [address] AST [Catalytic activity/Vol] 18 15-37 U/L Normal 08-10-2019 [facility] ([id number]) Comment: Performed By: #### L500.3400, L500.4100 #### [facility] [address] [place], [address] Bilirubin [Mass/Vol] 0.30 0.20-1.00 mg/dL Normal 08-10-2019 [facility] ([id number]) Comment: Result Comment: For patients on eltrombopag therapy , use of Dimension [place] TBIL is not recommended. ? Performed By: #### L500.3400, L500.4100 #### [facility] [address] [place], [address] Bilirubin.direct [Mass/Vol] 0.10 0.00-0.30 mg/dL Normal 07-16 [facility] ([id number]) Comment: Performed By: #### L500.3400, L500.4100 #### [facility] [address] [place], [address] Globulin (S) [Mass/Vol] 3.0 2.2-4.2 g/dL Normal 2019 [facility] ([id number]) Comment: Performed By: #### L500.3400, L500.4100 #### [facility] [address] [place], [address] T PROT 6.4 6.4-8.2 g/dL Normal 08-10-[address] [facility] ([id number]) Comment: Performed By: #### L500.3400, L500.4100 #### [facility] [address] [place], [address] lipid profile on 2019-08-10 Cholesterol [Mass/Vol] 185 200 mg/dL Normal 08-10-2019 [facility] ([id number]) Comment: Result Comment: <200 mg/dL Desirable 200-240 mg/dL Borderline >240 mg/dL High Risk ? Performed By: #### L500.3400, L500.4100 #### [facility] [address] [place], [address] Cholesterol in HDL [Mass/Vol] 72 ? mg/dL Normal 2019 [facility] ([id number]) Comment: Result Comment: The drugs N-Jose tylcysteine and Metamizole may falsely depress this assay. Reference Range HDL <40 mg/dL Low HDL Cholesterol HDL >or= 60 mg/dL High HDL Cholesterol ? Performed By: #### L500.3400, L500.4100 #### [facility] [address] [place], [address] Cholesterol in LDL [Mass/Vol] 83 0-130 mg/dL Normal 08-10-19 [facility] ([id number]) Comment: Performed By: #### L500.3400, L500.4100 #### [facility] [address] [place], [address] Cholesterol in VLDL [Mass/Vol] 30 5-40 mg/dL Normal 08-10-19 [facility] ([id number]) Comment: Performed By: #### L500.3400, L500.4100 #### [facility] [address] [place], [address] Triglyceride [Mass/Vol] 151 ? mg/dL Normal 08-10-2019 [facility] ([id number]) Comment: Result Comment: The drugs N-Jose tylcysteine and Metamizole may falsely depress this assay. Serum Triglycerides Reference Interval Normal <150 mg/dL Borderline high 150 - 199 mg/dL High 200 - 499 mg/dL Very High > or = 500 mg/dL ? Performed By: #### L500.3400, L500.4100 #### [facility] [address] [place], [address] Assessment and Plan Encounter Diagnosis ICD-10-CM 1. Chronic right shoulder pain M25.511 celecoxib (CELEBREX) 200 mg capsule G89.29 2. Pain in both wrists M25.531 diclofenac sodium (VOLTAREN ) 1 % topical gel M25.532 3. Essential hypertension I10 BASIC METABOLIC PNL CBC 4. Mixed hyperlipidemia E78.2 5. Leg pain, right M79.604 oxyCODONE-jose taminophen (PERCOCET) 10-325 mg tablet oxyCODONE-acetaminophen (PERCOCET) 10-325 mg tablet Chronic pain; site of large hematome on right morelos from fall has healed almost completely. Swelling down. 6. Pain in the muscles, right leg M79.10 oxyCODONE-acetami nophen (PERCOCET) 10-325 mg tablet oxyCODONE-acetaminophen (PERCOCET) 10-325 mg tablet 7. Arthritis of shoulder M19.019 celecoxib (CELEBREX) 200 mg capsule diclofenac sodium (VOLTAREN) 1 % topical gel 8. Spinal stenosis of lumbar region, unspecified whether yoselin rogenic claudication present M48.061 oxyCODONE-acetaminophen (PERCOC ET) 10-325 mg tablet oxyCODONE-acetaminophen (PERCOCET) 10-325 mg tablet Percocet more effective than Hydrocodone. Will resume at BID . 9. Encounter for long-term current use of medication Z 79.899 BASIC METABOLIC PNL CBC 10. CKD (chronic kidney disease) stage 3, GFR 30-59 ml/min ( [facility]) N18.3 Importance of hydration with taking Celebrex discussed. See Patient Instructions. 11. Anticoagulant long-term use Z79.01 Associated easy bruising discussed. Hydration and skin emo llients discussd. Above issues addressed with patient. Patient involved in shared decision making for managem ent of medical issues. History and medications reviewed. Epic updated as needed Refills and/or prescriptions taken care of and meds adjusted as indicated after reviewed history, exam and labs. Health Maintenance reviewed. Updated record and/ or ordered tests as recorded. Encouraged on efforts at healthy diet an d regular exercise and adequate sleep. Stable with pain control though still ascencio s severe pain that wishes were better. Meds at least take the edge off--worse without the pain med. No signs of diversion or abuse of medication(s); no adverse effects. John duarte present management. Hard for her to get to appointments. Will make r eferrals as indicated for subspecialists . At this time benefits outweigh risks. Continue to monitor for adverse effects and indications for decreasing dose or tapering off. Benefit of taking Celebrex outweighs risks of renal issues a t this time. Adequate hydration needed as discused. Further evaluation an d treatment as indicated. The majority of the visit wa s spent counseling and/or coordinating care for the patient. Yslb-rd-ouph time was at least 40 minutes. MD Sriram Cano MD 08/30/2019 6:00 PM Addendum Make sure to stay hydrated to protect kidneys, especially wh en taking the Celebrex. Labs in the next couple week s to make sure kidney function and blood counts are okay. Referring Provider: SELF [200] Allergies As of Date: 08/30/2019 Noted Allergy Reaction AMBIEN (ZOLPIDEM) 12/28/2012 14 - Other: See Comments Comments: Hangover effect/body aches GABAPENTIN 07/18/2014 14 - Other: See Comments Comments: states that made me crazy; tremor and made her f orgetful SULFA (SULFONAMIDE ANTIBIOTICS) 08/07/2006 4 - Hives Date Reviewed: 08/30/2019 Reviewed by: Suzette Lopez LPN - Fully Assessed Reason for Visit: Follow Up [171] Primary Visit Diagnosis:Chronic right shoulder pain [M25.511 , G89.29] Other Visit Diagnoses:Pain in both wrists [M25.531, M25.532] Essential hypertension [I10] Mixed hyperlipidemia [E78.2] Leg pain, right [M79.604] Comment:Chronic pain; site of large hematome on right morelos from fall has healed almost completely. Swelling down. Pain in the muscles, right leg [M79.10] Arthritis of shoulder [M19.019] Spinal stenosis of lumbar region, unspecified whether neurogenic claudication present [M48.061] Comment:Percocet more effective than Hydrocodone. Will resume at BID. Encounter for long-term current use of medication [Z79.899] CKD (chronic kidney disease) stage 3, GFR 30-59 ml/min (HCC) [N18.3] Comment:Importance of hydration with taking Celebrex discussed. See Patient Instructions. Anticoagulant long-term use [Z79.01] Comment:Associated easy bruising discussed. Hydration and skin emollients discussd. Order(s):LIPID PANEL (OUTSIDE) [8927004] Order #: [id number] celecoxib (CELEBREX) 200 mg capsuleTake 1 capsule by mouth t wice daily. take with foodDisp: 180 capsuleRfl: 0 diclofenac sodium (VOLTAREN) 1 % topical gelApply 2 g to aff ected area four times daily as needed.Disp: 100 gRfl: 0 BASIC METABOLIC PNL [SQBMP] Order #: [id number] FUTURE CBC [SQCBC] Order #: [id number] FUTURE oxyCODONE-acetaminophen (PERCOCET) 10-325 mg tabletTake 1 ta blet by mouth twice daily as needed for up to 30 days. as neededDisp : 60 tabletRfl: 0 [START ON 09/29/2019] oxyCODONE-acetaminophen (PERCOCET) 10-3 25 mg tabletTake 1 tablet by mouth twice daily as needed for up to 30 days. as needed Do not start before September 29, 2019.Disp: 60 tabletR fl: 0 Prescriptions as of 08/30/2019 Sig: CELECOXIB 200 MG CAPSULE Take 1 capsule by mouth twice* OXYCODONE-ACETAMINOPHEN 10 MG* Take 1 tablet by mouth twice * OXYCODONE-ACETAMINOPHEN 10 MG* Take 1 tablet by mouth twice * AMITRIPTYLINE 50 MG TABLET Take 1 tablet by mouth daily * IPRATROPIUM BROMIDE 42 MCG (0* Use 2 Sprays in the nose four * FLUTICASONE PROPIONATE 50 MCG* Use 1-2 Sprays in each nostri * CETIRIZINE 10 MG TABLET Take 1 tablet by mouth once d* DONEPEZIL 5 MG TABLET Take 1 tablet by mouth daily * CLOPIDOGREL 75 MG TABLET Take 1 tablet by mouth once d* HYDRALAZINE 10 MG TABLET Take 1 tablet by mouth four t* ATORVASTATIN 10 MG TABLET Take 1 tablet by mouth once d* CARVEDILOL 3.125 MG TABLET Take 1 tablet by mouth twice * BISACODYL 5 MG TABLET,DELAYED* Take two (2) tablets, at the * HYDROCORTISONE 2.5 % TOPICAL * 1 application by RECTAL route * TRIAMCINOLONE ACETONIDE 0.1 %* Apply 1 application to affect * ALBUTEROL SULFATE HFA 90 MCG/* Inhale 2 Puffs as instructed * ALBUTEROL SULFATE 2.5 MG/3 ML* Use 3 mL via nebulizer three * TRIAMCINOLONE ACETONIDE TOPIC* Apply to affected area. COMPOUNDED PRESCRIPTION Nebulizer for home use. Diagn* COMPOUNDED PRESCRIPTION BLOOD PRESSURE CUFF FOR HOME * CEUSWAWVJID-RYUBODGOG-TBX C-M* Take 1 capsule by mouth once * DICLOFENAC 1 % TOPICAL GEL Apply 2 g to affected area fo* OXYCODONE-ACETAMINOPHEN 10 MG* Take 1 tablet by mouth twice * POLYETHYLENE GLYCOL 3350 17 G* Take one (1) bottle, as instr * Patient not taking: Reported on 08/13/2019 PHENYLEPHRINE 0.25 % RECTAL S* 1 Suppository by RECTAL route * Patient not taking: Reported on 08/13/2019 GUAIFENESIN ORAL Take by mouth. Problem List As Of Date 08/30/2019 Noted Resolved Coronary atherosclerosis [I25.10] More... Chronic obstructive asthma, unspecified [J44.9] 08/13/2019 Unspecified asthma, with status asthmaticus [J4* 08/13/2019 Pulmonary emphysema (HCC) [J43.9] More... Unspecified asthma(493.90) [J45.909] 08/13/2019 More... Nonspecific abnormal results of liver function *01/13/2007 0 11/11/2011 CONSTIPATION NOS [K59.00] 01/13/2007 Anemia, unspecified [D64.9] 01/14/2007 08/13/2019 Mixed hyperlipidemia [E78.2] 04/09/2007 More... History of squamous cell carcinoma of skin [Z85*11/16/2009 0 08/13/2019 More... Former smoker [Z87.891] 11/16/2009 Spinal stenosis [M48.00] 11/16/2009 More... REDDING (hard of hearing) [H91.90] 11/16/2009 08/13/2019 Incontinence of feces [787.6] 12/13/2009 08/13/2019 Benign neoplasm of colon [D12.6] 12/13/2009 08/13/2019 Basal cell carcinoma [C44.91] 09/25/2011 08/13/2019 More... Compound nevus of thigh [D22.70] 09/25/2011 08/13/2019 More... Insomnia [G47.00] 11/11/2011 More... Chronic serous otitis media [H65.20] 09/07/2014 08/13/2019 Hearing loss [H91.90] 09/07/2014 Hoarseness [R49.0] 09/07/2014 08/13/2019 History of CVA (cerebrovascular accident) [Z86.*12/12/2015 History of subdural hematoma [Z86.79] 12/16/2016 Depression [F32.9] 05/01/2017 Uses hearing aid [Z97.4] 10/31/2017 More... Vascular dementia, uncomplicated [F01.50] 12/05/2017 More... Fall with injury [W19.XXXA] 01/01/2018 More... External otitis of right ear [H60.91] 01/01/2018 08/13/2019 More... HTN (hypertension) [I10] 01/01/2018 More... DJD (degenerative joint disease) [M19.90] 01/01/2018 More... Chronic pain syndrome [G89.4] 01/01/2018 More... Chronic right shoulder pain [M25.511, G89.29] 07/20/2019 Primary osteoarthritis of right shoulder [M19.0*07/20/2019 Other instructions from your clinician: Make sure to stay hydrated to protect kidneys, especially wh en taking the Celebrex. Labs in the next couple weeks to make sure kidney function a nd blood counts are okay. Prescriptions ordered this encounter Disp Refills Start End CELECOXIB 200 MG CAPSULE 180 * 0 08/30/2019 Class: [employer] Route: ORAL Sig: Take 1 capsule by mouth twice daily. take with food DICLOFENAC 1 % TOPICAL GEL 100 g 0 08/30/2019 Route: TOPICAL Sig: Apply 2 g to affected area four times daily as needed. OXYCODONE-ACETAMINOPHEN 10 MG-325 MG* 60 t* 0 08/30/2019 Cmt: Patient did not know was sent August 11 for refilling on o r after and did not get RX so sending this now Route: ORAL Sig: Take 1 tablet by mouth twice daily as needed for up to 30 days. as needed OXYCODONE-ACETAMINOPHEN 10 MG-325 MG* 60 t* 0 09/29/2019 Cmt: Patient did not know was sent August 11 for refilling on o r after and did not get RX so sending this now Route: ORAL Sig: Take 1 tablet by mouth twice daily as needed for up to 30 days. as needed Do not start before September 29, 2019. Medications Discontinued During This Encounter celecoxib (CELEBREX) 200 mg capsule 30 c* 2 07/19/2019 08/30/19 Cmt: Hold on file until needed Route: ORAL Sig: Take 1 capsule by mouth once daily. take with food Disc: Reason for discontinue is not on file. oxyCODONE-acetaminophen (PERCOCET) 1* 60 t* 0 08/18/20192019 Route: ORAL Sig: Take 1 tablet by mouth twice daily as needed for up to 30 days. as needed Do not start before August 18, 2019. Disc: Reason for discontinue is not on file. Encounter Status:Closed by SRIRAM VALDEZ MD on 09/12/19 cnpn on 2019-08-25 CNPN Telephone ([facility]) Normal 08-25-2019 [facility] ANEL ESPINO ([id number]) 1935 [address] [facility] Time Provider Department ([id number]) 08/25/19 KENNY DAVIS During your visit today, we recorded the following informati on about you: Marsha Castro Ma 08/25/2019 8:56 AM Signed Patient needs appointment with Pain Management (Dr. Lin villafuerte) in [place] for right shoulder. Please sign consult. Referral placed for ins urance. Kenny Davis DO 08/25/2019 2:55 PM Signed consult order signed Marsha Castro Ma 08/25/2019 3:33 PM Signed Please assist patient with scheduling appointment. Thank you . Marsha Castro Ma 09/02/2019 2:37 PM Signed I don't see that this patient has been scheduled. Plea se assist patient with appointment in [place] with Dr. Ruiz. Thank you. HELADIO Roman 09/03/2019 8:26 AM Signed [place] patient, please call to get scheduled with Dr. Stephanie bermudez. HELADIO Roman September 03, 2019 8:26 AM Kenyatta Silva MA 09/03/2019 4:50 PM Signed Called patient and she does not wish to schedule Kenyatta Silva MA September 03, 2019 4:50 PM Frances Farfan 10/06/2019 11:24 AM Signed Kenyatta Can you reach out to this pa tient again to see if she would like to schedule? I know she wished not to back in August but it would be good to follow up with her. Frances Silva MA 10/06/2019 12:40 PM Signed Called patient and she still does not want to see Pain Manag lorena Silva MA October 06, 2019 12:40 PM Allergies As of Date: 08/25/2019 Noted Allergy Reaction AMBIEN (ZOLPIDEM) 12/28/2012 14 - Other: See Comments Comments: Hangover effect/body aches GABAPENTIN 07/18/2014 14 - Other: See Comments Comments: states that made me crazy; tremor and made her f orgetful SULFA (SULFONAMIDE ANTIBIOTICS) 08/07/2006 4 - Hives Date Reviewed: 08/13/2019 Reviewed by: Marsha Castro Ma - Fully Assessed Reason for Visit: Referral to pain management [Other] Primary Visit Diagnosis:Arthritis of shoulder [M19.019] Order(s):CONSULT TO PAIN MGT [117142] Order #: [id number] : 1 FUTURE Prescriptions as of 08/25/2019 Sig: X OXYCODONE-ACETAMINOPHEN 10 MG* Take 1 tablet by mouth twic e * AMITRIPTYLINE 50 MG TABLET Take 1 tablet by mouth daily * IPRATROPIUM BROMIDE 42 MCG (0* Use 2 Sprays in the nose four * FLUTICASONE PROPIONATE 50 MCG* Use 1-2 Sprays in each nostri * CETIRIZINE 10 MG TABLET Take 1 tablet by mouth once d* X CELECOXIB 200 MG CAPSULE Take 1 capsule by mouth once * DONEPEZIL 5 MG TABLET Take 1 tablet by mouth daily * OXYCODONE-ACETAMINOPHEN 10 MG* Take 1 tablet by mouth twice * CLOPIDOGREL 75 MG TABLET Take 1 tablet by mouth once d* HYDRALAZINE 10 MG TABLET Take 1 tablet by mouth four t* ATORVASTATIN 10 MG TABLET Take 1 tablet by mouth once d* CARVEDILOL 3.125 MG TABLET Take 1 tablet by mouth twice * POLYETHYLENE GLYCOL 3350 17 G* Take one (1) bottle, as instr * Patient not taking: Reported on 08/13/2019 BISACODYL 5 MG TABLET,DELAYED* Take two (2) tablets, at the * PHENYLEPHRINE 0.25 % RECTAL S* 1 Suppository by RECTAL route * Patient not taking: Reported on 08/13/2019 HYDROCORTISONE 2.5 % TOPICAL * 1 application by RECTAL route * TRIAMCINOLONE ACETONIDE 0.1 %* Apply 1 application to affect * ALBUTEROL SULFATE HFA 90 MCG/* Inhale 2 Puffs as instructed * ALBUTEROL SULFATE 2.5 MG/3 ML* Use 3 mL via nebulizer three * TRIAMCINOLONE ACETONIDE TOPIC* Apply to affected area. COMPOUNDED PRESCRIPTION Nebulizer for home use. Diagn* COMPOUNDED PRESCRIPTION BLOOD PRESSURE CUFF FOR HOME * YXDEOJGLVQU-IZKYQNFKH-DJL C-M* Take 1 capsule by mouth once * GUAIFENESIN ORAL Take by mouth. Problem List As Of Date 08/25/2019 Noted Resolved Coronary atherosclerosis [I25.10] More... Chronic obstructive asthma, unspecified [J44.9] 08/13/2019 Unspecified asthma, with status asthmaticus [J4* 08/13/2019 Pulmonary emphysema (HCC) [J43.9] More... Unspecified asthma(493.90) [J45.909] 08/13/2019 More... Nonspecific abnormal results of liver function *01/13/2007 0 11/11/2011 CONSTIPATION NOS [K59.00] 01/13/2007 Anemia, unspecified [D64.9] 01/14/2007 08/13/2019 Mixed hyperlipidemia [E78.2] 04/09/2007 More... History of squamous cell carcinoma of skin [Z85*11/16/2009 0 08/13/2019 More... Former smoker [Z87.891] 11/16/2009 Spinal stenosis [M48.00] 11/16/2009 More... REDDING (hard of hearing) [H91.90] 11/16/2009 08/13/2019 Incontinence of feces [787.6] 12/13/2009 08/13/2019 Benign neoplasm of colon [D12.6] 12/13/2009 08/13/2019 Basal cell carcinoma [C44.91] 09/25/2011 08/13/2019 More... Compound nevus of thigh [D22.70] 09/25/2011 08/13/2019 More... Insomnia [G47.00] 11/11/2011 More... Chronic serous otitis media [H65.20] 09/07/2014 08/13/2019 Hearing loss [H91.90] 09/07/2014 Hoarseness [R49.0] 09/07/2014 08/13/2019 History of CVA (cerebrovascular accident) [Z86.*12/12/2015 History of subdural hematoma [Z86.79] 12/16/2016 Depression [F32.9] 05/01/2017 Uses hearing aid [Z97.4] 10/31/2017 More... Vascular dementia, uncomplicated [F01.50] 12/05/2017 More... Fall with injury [W19.XXXA] 01/01/2018 More... External otitis of right ear [H60.91] 01/01/2018 08/13/2019 More... HTN (hypertension) [I10] 01/01/2018 More... DJD (degenerative joint disease) [M19.90] 01/01/2018 More... Chronic pain syndrome [G89.4] 01/01/2018 More... Chronic right shoulder pain [M25.511, G89.29] 07/20/2019 Primary osteoarthritis of right shoulder [M19.0*07/20/2019 Encounter Status:Closed by KENNY DAVIS DO, V on 08/25/19 xr shldr >/=3v ap/cecy ap/othr rt on 2019-08-13 XR SHLDR >/=3V * * *Final Report* * * Normal 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 Right shoulder pain, unspecified ch ronicity . TECHNIQUE: XR SHLDR >/=3V AP/CECY AP/OTHR RT Laterality: RIGHT Number of different views (projections): 3 COMPARISON: 08/21/2018 RESULT: Advanced glenohumeral degenerative arthritis with osteophyte formation and complete joint space loss with subchondral cyst formatio n and glenoid bony remodeling appears slightly worse. The subacromial spac e is borderline narrowed and the possibility of rotator cuff tear is not excluded. Slight irregularity at the tip of the coracoid pro cess could be sequelae of prior nondisplaced fracture. - IMPRESSION: Advanced glenohumeral degenerative arthritis. Office Rental Clerk: DIANA Transcribe Date/Time: Aug 13 2019 2:41P Dictated by : SOMMER AYERS MD This examination was interpreted and the report reviewed and electronically signed by: SOMMER AYERS MD on Aug 13 2019 2:43PM EST [id number] progress on 2019-07 PROGRESS HNO ID: [id number] Normal 08-13-[address] [facility] Author: Brenda Hurd ([id number]) Service: ? Author Type: Physician Type: Progress Notes Filed: 08/13/2019 2:15 PM Note Text: Anel Espino presents for follow up of pain and jackelin nful movement in the right shoulder. She has advanced glenohumeral joint a rthritis, with progressive symptoms, loss of ROM and worsening pain. PAST MEDICAL HISTORY Diagnosis Date - ABNORMAL LIVER FUNCTION STUDY 01/13/2007 - Anemia, unspecified 01/14/2007 - Basal cell carcinoma 09/25/2011 Superior umbilicus and left posterior calf, Sailaja Kan.Will follow annually every year, Due September 2012. 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 Dr. Jimenez. Had s een Dr. Huff - Unspecified asthma(493.90) - Unspecified constipation - Uses hearing aid 10/31/2017 forgot to wear today PAST SURGICAL HISTORY Procedure Laterality Date - COLONOSCOP W/ OR W/O BRSH SPEC 10/23/2018 Colonoscopy - COLONOSCOPY W/BX 12/13/09 - EGD W/O OR W/BRUSH/WASH 10/23/2018 EGD - INCISION EARDRUM,ASPIR,GEN ANESTH Myringotomy/tubes - MASTOIDECTOMY Left age 11 - PAST SURGICAL HISTORY OF cholestetoma bilat. ears x 6 - PAST SURGICAL HISTORY OF breast, milk glands removed - PAST SURGICAL HISTORY OF gallbladder - PAST SURGICAL HISTORY OF 06/2008 Lumbar Laminectomy - [facility] - PAST SURGICAL HISTORY OF squamous cell removal - right thigh Menard - REMOVAL OF OVARY(S) 09/2008 Oophorectomy - [facility] - RIGHT HEART CATHETERIZATION 2005,2006 Cardiac cath, R heart - TOTAL ABDOM HYSTERECTOMY Hysterectomy, [facility] Current Outpatient Medications on File Prior to Visit Medication Sig - [START ON 08/18/2019] oxyCODONE-acetaminophen (PERCOCET) 10- 325 mg tablet Take 1 tablet by mouth twice daily as needed for up to 30 da ys. as needed Do not start before August 18, 2019. - amitriptyline (ELAVIL) 50 mg tablet Take 1 tablet by mouth daily at bedtime. May take extra half pill nightly as needed for slee p - ipratropium bromide (ATROVENT) 42 mcg (0.06 %) nasal spray Use 2 Sprays in the nose four times daily as needed. - fluticasone (FLONASE) 50 mcg/actuation nasal spray Use 1-2 Sprays in each nostril once daily. Rinse mouth after use. For nasal dr rj - celecoxib (CELEBREX) 200 mg capsule Take 1 capsule by mout h once daily. take with food - cetirizine (ZYRTEC) 10 mg tablet Take 1 tablet by mouth on ce daily. - donepezil (ARICEPT) 5 mg tablet Take 1 tablet by mouth cliff ly at bedtime. - clopidogrel (PLAVIX) 75 mg tablet Take 1 tablet by mouth o nce daily. - hydrALAZINE (APRESOLINE) 10 mg tablet Take 1 tablet by duncan th four times daily as needed. For systolic blood pressure over 159 - atorvastatin (LIPITOR) 10 mg tablet Take 1 tablet by mouth once daily. - carvedilol (COREG) 3.125 mg tablet Take 1 tablet by mouth twice daily. - triamcinolone acetonide (KENALOG) 0.1 % cream Apply 1 appl ication to affected area twice daily as needed. For eczematous rash on extremities and torso - TRIAMCINOLONE ACETONIDE TOPICAL Apply to affected area. - Wamygjzsxzj-Fgbgytndz-Bcf C-Mn (GLUCOSAMINE CHONDROITIN MA XSTR) 500-400 mg cap Take 1 capsule by mouth once daily. - oxyCODONE-acetaminophen (PERCOCET) 10-325 mg tablet Take 1 tablet by mouth twice daily as needed for up to 30 days. as needed - polyethylene glycol 3350 (MIRALAX, GLYCOLAX) 17 gram/dose powder Take one (1) bottle, as instructed for colonoscopy prep. (Patient not taking: Reported on 08/13/2019 ) - bisacodyl EC (DULCOLAX, BISACODYL,) 5 mg EC tablet Take tw o (2) tablets, at the designated times, as explained on the instruction she et provided. - PHENYLephrine 0.25 % suppository 1 Suppository by RECTAL r oute twice daily. (Patient not taking: Reported on 08/13/2019 ) - hydrocortisone (ANUSOL-HC) 2.5 % rectal cream 1 applicatio n by RECTAL route twice daily as needed. - albuterol HFA (PROVENTIL HFA, VENTOLIN HFA) 90 mcg/actuati on inhaler Inhale 2 Puffs as instructed every 6 hours as needed. - albuterol (PROVENTIL) 2.5 mg /3 mL (0.083 %) nebulizer abigail ution Use 3 mL via nebulizer three times daily as needed. OVER 5-15 MINUTES . FOR WHEEZING AND SHORTNESS OF BREATH. - COMPOUNDED PRESCRIPTION Nebulizer for home use. Diagnosis: Emphysema, COPD exacerbation. Lifetime use. - Blood Pressure Cuff - Home Use BLOOD PRESSURE CUFF FOR FARHAN E USE. DX: LABILE BLOOD PRESSURE R09.89 - GUAIFENESIN ORAL Take by mouth. No current facility-administered medications on file prior t o visit. Physical Exam Findings: General exam: Normal, Extremeties right shoulder limited motion in all planes with crepitus. x-ray shows progression of OA right glenohumeral joint Assessment: glenohumeral arthritis right shoulder Plan: Discussed that last injection was 4 months ago, provided mil d symptomatic relief. Patient declines referral for surgical consultation, as she states that she does not want to go through a large surgery. She is interested in evaluation by pain management, and a referral has been made. The risk, benefits and alternatives of injection and no inje ction therapy were discussed. Personnel were discussed and the patient con sented for an injection. The patient has been identified by name and date. The injection site was identified, marked and prepped with a alc ohol swab. Time out completed. The right glenohumeral joint was injecte d with a 25 gauge needle with 1cc Celestone (6 mg), 4cc sensorcaine 0.5 %, 4cc xylocaine plain 1%. The injection site was then dressed with a bandaid. The patient tolerated the injection well. The patient was in structed to call the office if any adverse local effects occurred or any if any questions or concerns arise. Kenny Davis DO PROGRESS HNO ID: [id number] Normal 08-13-[address] [facility] Author: Marsha Castro [facility] ([id number]) Service: ? Author Type: ? Type: Progress Notes Filed: 08/13/2019 2:15 PM Note Text: AMB ROOMING INTAKE FLOWSHEET DATA Risk Screening Do you have concerns about personal safety or safety in the home?: No Pain Pain Level: 10 Pain Location: Arm-Right Description: Aching, Sharp, Shooting, Sore Duration Amount of Time: (ongoing) Frequency: Continuous Intervention: Other: See comment(none) Patient here today 18 weeks post visit right shoulder pain. States she now is having pain in the axilla as well. She gets shooting pain down the arm and it is difficult for her to sleep. She reports the ri ght arm feels weak like it did after her stroke. [facility]. R ight hand dominant. PROGRESS HNO ID: [id number] Normal 08-13-[address] [facility] Author: Thania Franks (Rt) [place] ([id number]) Service: ? Author Type: Patient Service Technician Pst Type: Progress Notes Filed: 08/13/2019 1:46 PM Note Text: Radiology Service Progress Note PATIENT NAME: Anel Espino DATE OF SERVICE: August 13, 2019 TIME: 1:30 PM PATIENT IDENTITY VERIFICATION COMPLETED USING TWO (2) IDENTI FIERS: Name and Date of confirmed by patient verbally. FALL SCREENING: Has the patient had 2 falls in the last year or 1 fall with injury or currently using an Ambulatory Assistive Devic e (Walker, Cane, Wheelchair, Crutches, etc.)? Yes, Patient High Risk fo r Falls What interventions were put in place to prevent falls during this visit? Instructed Patient to Call for Help if Needed, Offered Berto tance with Transfers/Clothing, Instructed Patient to Remain Seated (Not on Exam Table) Until Exam and Increased Observations by Caregivers PATIENT GENDER DATA: Female. status: : No status: NO. PATIENT RELEVANT IMPLANT DATA REVIEWED: Not Applicable RADIOLOGY DEPARTMENT: General X-ray: Exam(s) Completed: Uppe r Extremity X-Ray(s): Shoulder, AP / TRUE AP / AXILLARY right : PERIPHERAL IV DATA: Not applicable SIGNED BY: RT Golden August 13, 2019 1:30 PM cnov on 2019-08-13 CNOV Office Visit (FRFHWS) Normal 08-13-19 20 [place] ANEL Mcelroy ([id number]) 1935 [facility] Date Time Provider Department ([id number]) 08/13/19 1:40 PM [facility] During your visit today, we recorded the following informati on about you: Marsha Catsro Ma 08/13/2019 2:15 PM Signed AMB ROOMING INTAKE FLOWSHEET DATA Risk Screening Do you have concerns about personal safety or safety in the home?: No Pain Pain Level: 10 Pain Location: Arm-Right Description: Aching, Sharp, Shooting, Sore Duration Amount of Time: (ongoing) Frequency: Continuous Intervention: Other: See comment(none) Patient here today 18 weeks post visit right douglas ulder pain. States she now is having pain in the axilla as well. She gets shoo ting pain down the arm and it is difficult for her to sleep. She reports the right arm f eels weak like it did after her stroke. New x-ray today at [facility] Right hand dom inant. Kenny Davis DO 08/13/2019 2:15 PM Signed Anel Espino presents for follow up of pain a nd painful movement in the right shoulder. She has advanced glenohumeral joint arth ritis, with progressive symptoms, loss of ROM and worsening pain. PAST MEDICAL HISTORY Diagnosis Date - ABNORMAL LIVER FUNCTION STUDY 01/13/2007 - Anemia, unspecified 01/14/2007 - Basal cell carcinoma 09/25/2011 Superior umbilicus and left posterior calf, Sailaja Suárez.Will follow annually every year, Due September 2012. 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 Dr. Jimenez. Had s een Dr. Huff - Unspecified asthma(493.90) - Unspecified constipation - Uses hearing aid 10/31/2017 forgot to wear today PAST SURGICAL HISTORY Procedure Laterality Date - COLONOSCOP W/ OR W/O BRSH SPEC 10/23/2018 Colonoscopy - COLONOSCOPY W/BX 12/13/09 - EGD W/O OR W/BRUSH/WASH 10/23/2018 EGD - INCISION EARDRUM,ASPIR,GEN ANESTH Myringotomy/tubes - MASTOIDECTOMY Left age 11 - PAST SURGICAL HISTORY OF cholestetoma bilat. ears x 6 - PAST SURGICAL HISTORY OF breast, milk glands removed - PAST SURGICAL HISTORY OF gallbladder - PAST SURGICAL HISTORY OF 06/2008 Lumbar Laminectomy - [facility] - PAST SURGICAL HISTORY OF squamous cell removal - right thigh Menard - REMOVAL OF OVARY(S) 09/2008 Oophorectomy - [facility] - RIGHT HEART CATHETERIZATION 2005,2006 Cardiac cath, R heart - TOTAL ABDOM HYSTERECTOMY Hysterectomy, [facility] Current Outpatient Medications on File Prior to Visit Medication Sig - [START ON 08/18/2019] oxyCODONE-acetamin ophen (PERCOCET) 10-325 mg tablet Take 1 tablet by mouth twice daily as needed for up to 30 days. as needed Do not start before August 18, 2019. - amitriptyline (ELAVIL) 50 mg tablet Ta ke 1 tablet by mouth daily at bedtime. May take extra half pill nightly as needed for sleep - ipratropium bromide (ATROVENT) 42 mcg (0.06 %) nasal spray Use 2 Sprays in the nose four times daily as needed. - fluticasone (FLONASE) 50 mcg/actuation nasal spray Use 1 -2 Sprays in each nostril once daily. Rinse mouth after use. For nasal drainag e - celecoxib (CELEBREX) 200 mg capsule Ta ke 1 capsule by mouth once daily. take with food - cetirizine (ZYRTEC) 10 mg tablet Take 1 tablet by mouth on ce daily. - donepezil (ARICEPT) 5 mg tablet Take 1 tablet by mouth cliff ly at bedtime. - clopidogrel (PLAVIX) 75 mg tablet Take 1 tablet by mouth o nce daily. - hydrALAZINE (APRESOLINE) 1 0 mg tablet Take 1 tablet by mouth four times daily as needed. For systolic blood pressure over 159 - atorvastatin (LIPITOR) 10 mg tablet Take 1 tablet by mouth once daily. - carvedilol (COREG) 3.125 mg tablet Take 1 tablet by mouth twice daily. - triamcinolone acetonide (K ENALOG) 0.1 % cream Apply 1 application to affected area twice daily as needed. For eczematous rash on extremiti es and torso - TRIAMCINOLONE ACETONIDE TOPICAL Apply to affected area. - Nnksoyqaekn-Grbjdbxbq-Olg C-Mn (GLUCOSAMINE CHONDROI TIN MAXSTR) 500-400 mg cap Take 1 capsule by mouth once daily. - oxyCODONE-acetaminophen (PERCOCET) 10-325 mg tablet Take 1 tablet by mouth twice daily as needed for up to 30 days. as needed - polyethylene glycol 3350 ( MIRALAX, GLYCOLAX) 17 gram/dose powder Take one (1) bottle, as instructed for colonoscopy prep. (Patient n ot taking: Reported on 08/13/2019 ) - bisacodyl EC (DULCOLAX, BISACODYL,) 5 mg EC ta blet Take two (2) tablets, at the designated times, as explained on the instruction sheet provided. - PHENYLephrine 0.25 % suppository 1 Suppository by RECTAL route twice daily. (Patient not taking: Reported on 08/13/2019 ) - hydrocortisone (ANUSOL-HC) 2.5 % rectal cream 1 application by RECTAL route twice daily as needed. - albuterol HFA (PROVENTIL H FA, VENTOLIN HFA) 90 mcg/actuation inhaler Inhale 2 Puffs as instructed every 6 hours as needed. - albuterol (PROVENTIL) 2.5 mg /3 mL (0. 083 %) nebulizer solution Use 3 mL via nebulizer three times daily as needed. OVER 5-15 MINUTES. FO R WHEEZING AND SHORTNESS OF BREATH. - COMPOUNDED PRESCRIPTION Nebulizer for home use. Diag nosis: Emphysema, COPD exacerbation. Lifetime use. - Blood Pressure Cuff - Home Use BLOOD PRESSURE CUFF FOR HOME USE. DX: LABILE BLOOD PRESSURE R09.89 - GUAIFENESIN ORAL Take by mouth. No current facility-administered medications on file prior t o visit. Physical Exam Findings: General exam: Normal, Extremeties right shoulder limited motion in all planes with crepitus. x-ray shows progression of OA right glenohumeral joint Assessment: glenohumeral arthritis right shoulder Plan: Discussed that last injection was 4 months ago, provided mil d symptomatic relief. Patient declines referral for surgical consultation, as she states that she does not want to go through a large surgery. She is interested in evaluation by pain management, and a referral has been made. The risk, benefits and alternatives of i njection and no injection therapy were discussed. Personnel were di scussed and the patient consented for an injection. The patient has been identified by name and jean-pierre hdate. The injection site was identified, marked and prepped with a alcohol swab. Time o ut completed. The right glenohumeral joint was injected with a 25 gauge needle with 1cc Celestone (6 mg), 4cc sensorcaine 0.5 %, 4cc xylocaine chuck in 1%. The injection site was then dressed with a bandaid. The patient tolerated the injec tion well. The patient was instructed to ca ll the office if any adverse local effects occurred or any if any questions or concerns arise. Kenny Davis DO Referring Provider: KENNY DAVIS V [[id number]] Allergies As of Date: 08/13/2019 Noted Allergy Reaction AMBIEN (ZOLPIDEM) 12/28/2012 14 - Other: See Comments Comments: Hangover effect/body aches GABAPENTIN 07/18/2014 14 - Other: See Comments Comments: states that made me crazy; tremor and made her f orgetful SULFA (SULFONAMIDE ANTIBIOTICS) 08/07/2006 4 - Hives Date Reviewed: 08/13/2019 Reviewed by: Marsha Castro Ma - Fully Assessed Reason for Visit: Established Patient [175] Cmt: 18 week post visit right shou lder pain Primary Visit Diagnosis:Arthritis of shoulder [M19.019] Order(s):[] betamethasone acetate-betamethasone sodium phosphate 6 mg injection (CELESTONE)Disp: Rfl: Prescriptions as of 08/13/2019 Sig: OXYCODONE-ACETAMINOPHEN 10 MG* Take 1 tablet by mouth twice * AMITRIPTYLINE 50 MG TABLET Take 1 tablet by mouth daily * IPRATROPIUM BROMIDE 42 MCG (0* Use 2 Sprays in the nose four * FLUTICASONE PROPIONATE 50 MCG* Use 1-2 Sprays in each nostri * CELECOXIB 200 MG CAPSULE Take 1 capsule by mouth once * CETIRIZINE 10 MG TABLET Take 1 tablet by mouth once d* DONEPEZIL 5 MG TABLET Take 1 tablet by mouth daily * CLOPIDOGREL 75 MG TABLET Take 1 tablet by mouth once d* HYDRALAZINE 10 MG TABLET Take 1 tablet by mouth four t* ATORVASTATIN 10 MG TABLET Take 1 tablet by mouth once d* CARVEDILOL 3.125 MG TABLET Take 1 tablet by mouth twice * TRIAMCINOLONE ACETONIDE 0.1 %* Apply 1 application to affect * TRIAMCINOLONE ACETONIDE TOPIC* Apply to affected area. KYOYMJEDCCM-HTCJEGMJU-TCN C-M* Take 1 capsule by mouth once * OXYCODONE-ACETAMINOPHEN 10 MG* Take 1 tablet by mouth twice * POLYETHYLENE GLYCOL 3350 17 G* Take one (1) bottle, as instr * Patient not taking: Reported on 08/13/2019 BISACODYL 5 MG TABLET,DELAYED* Take two (2) tablets, at the * PHENYLEPHRINE 0.25 % RECTAL S* 1 Suppository by RECTAL route * Patient not taking: Reported on 08/13/2019 HYDROCORTISONE 2.5 % TOPICAL * 1 application by RECTAL route * ALBUTEROL SULFATE HFA 90 MCG/* Inhale 2 Puffs as instructed * ALBUTEROL SULFATE 2.5 MG/3 ML* Use 3 mL via nebulizer three * COMPOUNDED PRESCRIPTION Nebulizer for home use. Diagn* COMPOUNDED PRESCRIPTION BLOOD PRESSURE CUFF FOR HOME * GUAIFENESIN ORAL Take by mouth. Problem List As Of Date 08/13/2019 Noted Resolved Coronary atherosclerosis [I25.10] More... Chronic obstructive asthma, unspecified [J44.9] 08/13/2019 Unspecified asthma, with status asthmaticus [J4* 08/13/2019 Pulmonary emphysema (HCC) [J43.9] More... Unspecified asthma(493.90) [J45.909] 08/13/2019 More... Nonspecific abnormal results of liver function *01/13/2007 0 11/11/2011 CONSTIPATION NOS [K59.00] 01/13/2007 Anemia, unspecified [D64.9] 01/14/2007 08/13/2019 Mixed hyperlipidemia [E78.2] 04/09/2007 More... History of squamous cell carcinoma of skin [Z85*11/16/2009 0 08/13/2019 More... Former smoker [Z87.891] 11/16/2009 Spinal stenosis [M48.00] 11/16/2009 More... REDDING (hard of hearing) [H91.90] 11/16/2009 08/13/2019 Incontinence of feces [787.6] 12/13/2009 08/13/2019 Benign neoplasm of colon [D12.6] 12/13/2009 08/13/2019 Basal cell carcinoma [C44.91] 09/25/2011 08/13/2019 More... Compound nevus of thigh [D22.70] 09/25/2011 08/13/2019 More... Insomnia [G47.00] 11/11/2011 More... Chronic serous otitis media [H65.20] 09/07/2014 08/13/2019 Hearing loss [H91.90] 09/07/2014 Hoarseness [R49.0] 09/07/2014 08/13/2019 History of CVA (cerebrovascular accident) [Z86.*12/12/2015 History of subdural hematoma [Z86.79] 12/16/2016 Depression [F32.9] 05/01/2017 Uses hearing aid [Z97.4] 10/31/2017 More... Vascular dementia, uncomplicated [F01.50] 12/05/2017 More... Fall with injury [W19.XXXA] 01/01/2018 More... External otitis of right ear [H60.91] 01/01/2018 08/13/2019 More... HTN (hypertension) [I10] 01/01/2018 More... DJD (degenerative joint disease) [M19.90] 01/01/2018 More... Chronic pain syndrome [G89.4] 01/01/2018 More... Chronic right shoulder pain [M25.511, G89.29] 07/20/2019 Primary osteoarthritis of right shoulder [M19.0*07/20/2019 Prescriptions ordered this encounter Disp Refills Start End BETAMETHASONE ACETATE AND SODIUM SUZIE* 08/13/2019 08/13/2019 Route: OTHER Encounter Status:Closed by KENNY DAVIS DO, V [facility] CNPN Telephone (ORTHWS) Normal 08-10-2019 [place] ANEL Mcelroy ([id number]) 1935 [place] Date Time Provider Department ([id number]) 08/10/19 KENNY DAVIS V ORTHWS During your visit today, we recorded the following informati on about you: Nyla Al RN 08/10/2019 1:54 PM Addendum Pt. called and states she ascencio s severe pain in right shoulder which radiates down her arm with some numbness of hand, which is int ermittent. She was seen by PT for one session which made it so much w orse that she refuses to go back. Her last xray was 6-7-19. She has had injections in the past a nd requests appt. with , who she has seen in the past. appt. schedu led for 08-13-2019 and pt. instructed to come in early for xray as it has been almost a year. She already takes daily Celebrex and Percocet for spinal stenosi s. Allergies As of Date: 08/10/2019 Noted Allergy Reaction AMBIEN (ZOLPIDEM) 12/28/2012 14 - Other: See Comments Comments: Hangover effect/body aches GABAPENTIN 07/18/2014 14 - Other: See Comments Comments: states that made me crazy; tremor and made her f orgetful SULFA (SULFONAMIDE ANTIBIOTICS) 08/07/2006 4 - Hives Date Reviewed: 07/19/2019 Reviewed by: Irvin (Billet Assembler) Winston - Fully Assessed Reason for Visit: right shoulder and arm pain [Other] Primary Visit Diagnosis:Right shoulder pain, uns pecified chronicity [M25.511] Order(s):XR SHOULDER GENERAL 3V OR MORE AP/TRUE AP/OTHER RT [[id number]] Order #: [id number] FUTURE Prescriptions as of 08/10/2019 Sig: AMITRIPTYLINE 50 MG TABLET Take 1 tablet by mouth daily * IPRATROPIUM BROMIDE 42 MCG (0* Use 2 Sprays in the nose four * FLUTICASONE PROPIONATE 50 MCG* Use 1-2 Sprays in each nostri * CELECOXIB 200 MG CAPSULE Take 1 capsule by mouth once * OXYCODONE-ACETAMINOPHEN 10 MG* Take 1 tablet by mouth twice * CETIRIZINE 10 MG TABLET Take 1 tablet by mouth once d* DONEPEZIL 5 MG TABLET Take 1 tablet by mouth daily * OXYCODONE-ACETAMINOPHEN 10 MG* Take 1 tablet by mouth twice * CLOPIDOGREL 75 MG TABLET Take 1 tablet by mouth once d* HYDRALAZINE 10 MG TABLET Take 1 tablet by mouth four t* ATORVASTATIN 10 MG TABLET Take 1 tablet by mouth once d* CARVEDILOL 3.125 MG TABLET Take 1 tablet by mouth twice * POLYETHYLENE GLYCOL 3350 17 G* Take one (1) bottle, as instr * BISACODYL 5 MG TABLET,DELAYED* Take two (2) tablets, at the * PHENYLEPHRINE 0.25 % RECTAL S* 1 Suppository by RECTAL route * HYDROCORTISONE 2.5 % TOPICAL * 1 application by RECTAL route * TRIAMCINOLONE ACETONIDE 0.1 %* Apply 1 application to affect * ALBUTEROL SULFATE HFA 90 MCG/* Inhale 2 Puffs as instructed * ALBUTEROL SULFATE 2.5 MG/3 ML* Use 3 mL via nebulizer three * TRIAMCINOLONE ACETONIDE TOPIC* Apply to affected area. COMPOUNDED PRESCRIPTION Nebulizer for home use. Diagn* COMPOUNDED PRESCRIPTION BLOOD PRESSURE CUFF FOR HOME * BVAUOZSYVEN-IWBTBHJSJ-DCO C-M* Take 1 capsule by mouth once * GUAIFENESIN ORAL Take by mouth. Problem List As Of Date 08/10/2019 Noted Resolved Coronary atherosclerosis [I25.10] More... COPD (chronic obstructive pulmonary disease) (H* More... Unspecified Asthma [J45.909] More... Nonspecific abnormal results of liver function *01/13/2007 0 11/11/2011 CONSTIPATION NOS [K59.00] 01/13/2007 Mixed hyperlipidemia [E78.2] 04/09/2007 More... More... Former smoker [Z87.891] 11/16/2009 Spinal stenosis [M48.00] 11/16/2009 More... More... More... Insomnia [G47.00] 11/11/2011 More... Hearing loss [H91.90] 09/07/2014 Cerebrovascular accident (CVA) (HCC) [I63.9] 12/12/2015 Subdural hematoma (HCC) [S06.5X9A] 12/16/2016 Depression [F32.9] 05/01/2017 Uses hearing aid [Z97.4] 10/31/2017 More... Vascular dementia, uncomplicated [F01.50] 12/05/2017 More... Fall with injury [W19.XXXA] 01/01/2018 More... External otitis of right ear [H60.91] 01/01/2018 More... HTN (hypertension) [I10] 01/01/2018 More... DJD (degenerative joint disease) [M19.90] 01/01/2018 More... Chronic pain syndrome [G89.4] 01/01/2018 More... Chronic right shoulder pain [M25.511, G89.29] 07/20/2019 Primary osteoarthritis of right shoulder [M19.0*07/20/2019 Encounter Status:Closed by NYLA AL RN on 07/16 09/03 progress on 2019-07 PROGRESS HNO ID: [id number] Normal 07-30-[address] [facility] Author: Mateo Glaser) KARLIE Vance [place] ([id number]) Service: ? Author Type: Registered Nurse Type: Progress Notes Filed: 07/30/2019 4:21 PM Note Text: Pt contacted by [facility] as part of our chronic disease high r isk monitoring collaboration. Patient reported yes to symptoms stating: Patient stated yes ? Mbr informed she had a fall in March and she has right arm pain. She saw Dr. Valdez last week and she has s joyce started Physical Therapy. PT showed her how to do exercises at home but after starting the exercises the pain in her right arm has gotten increasingly worse and the pain is unrelieved by Tylenol. please advise. Mateo Vance RN cnptoutreach on CNPTOUTREACH Patient Outreach (NETNAV) Normal 0 07-30-2019 [facility] ANEL ESPINO ([id number]) 1935 F [place] Date Time Provider Department ([id number]) 07/30/19 SRIRAM VALDEZ NETNAV During your visit today, we recorded the following informati on about you: Mateo Vance RN, RN 07/30/2019 4:21 PM Signed Pt contacted by [employer] as part of our chronic disease high r isk monitoring collaboration. Patient reported yes to symptoms stating: Patient stated yes ? Mbr informed she had a fall in March and she has right arm pain. She saw Dr. Valdez last week and she has since started Physical Therapy. PT showed her how to do exercises at home but after starting the exercises the pain in her right arm has gotten increasingly worse and the pain is unrelieved by Tylenol. please advise. Mateo Vance RN Allergies As of Date: 07/30/2019 Noted Allergy Reaction AMBIEN (ZOLPIDEM) 12/28/2012 14 - Other: See Comments Comments: Hangover effect/body aches GABAPENTIN 07/18/2014 14 - Other: See Comments Comments: states that made me crazy; tremor and made her f orgetful SULFA (SULFONAMIDE ANTIBIOTICS) 08/07/2006 4 - Hives Date Reviewed: 07/19/2019 Reviewed by: Irvin (Billet Assembler) [place] - Fully Assessed Reason for Visit: Care Coordination [3491] Cmt: chronic disease monitoring pro grm Prescriptions as of 07/30/2019 Sig: AMITRIPTYLINE 50 MG TABLET Take 1 tablet by mouth daily * IPRATROPIUM BROMIDE 42 MCG (0* Use 2 Sprays in the nose four * FLUTICASONE PROPIONATE 50 MCG* Use 1-2 Sprays in each nostri * CELECOXIB 200 MG CAPSULE Take 1 capsule by mouth once * OXYCODONE-ACETAMINOPHEN 10 MG* Take 1 tablet by mouth twice * CETIRIZINE 10 MG TABLET Take 1 tablet by mouth once d* DONEPEZIL 5 MG TABLET Take 1 tablet by mouth daily * OXYCODONE-ACETAMINOPHEN 10 MG* Take 1 tablet by mouth twice * CLOPIDOGREL 75 MG TABLET Take 1 tablet by mouth once d* HYDRALAZINE 10 MG TABLET Take 1 tablet by mouth four t* ATORVASTATIN 10 MG TABLET Take 1 tablet by mouth once d* CARVEDILOL 3.125 MG TABLET Take 1 tablet by mouth twice * POLYETHYLENE GLYCOL 3350 17 G* Take one (1) bottle, as instr * BISACODYL 5 MG TABLET,DELAYED* Take two (2) tablets, at the * PHENYLEPHRINE 0.25 % RECTAL S* 1 Suppository by RECTAL route * HYDROCORTISONE 2.5 % TOPICAL * 1 application by RECTAL route * TRIAMCINOLONE ACETONIDE 0.1 %* Apply 1 application to affect * ALBUTEROL SULFATE HFA 90 MCG/* Inhale 2 Puffs as instructed * ALBUTEROL SULFATE 2.5 MG/3 ML* Use 3 mL via nebulizer three * TRIAMCINOLONE ACETONIDE TOPIC* Apply to affected area. COMPOUNDED PRESCRIPTION Nebulizer for home use. Diagn* COMPOUNDED PRESCRIPTION BLOOD PRESSURE CUFF FOR HOME * [id number] C-M* Take 1 capsule by mouth once * GUAIFENESIN ORAL Take by mouth. Problem List As Of Date 07/30/2019 Noted Resolved Coronary atherosclerosis [I25.10] More... COPD (chronic obstructive pulmonary disease) (H* More... Unspecified Asthma [J45.909] More... Nonspecific abnormal results of liver function *01/13/2007 0 11/11/2011 CONSTIPATION NOS [K59.00] 01/13/2007 Mixed hyperlipidemia [E78.2] 04/09/2007 More... More... Former smoker [Z87.891] 11/16/2009 Spinal stenosis [M48.00] 11/16/2009 More... More... More... Insomnia [G47.00] 11/11/2011 More... Hearing loss [H91.90] 09/07/2014 Cerebrovascular accident (CVA) (HCC) [I63.9] 12/12/2015 Subdural hematoma (HCC) [S06.5X9A] 12/16/2016 Depression [F32.9] 05/01/2017 Uses hearing aid [Z97.4] 10/31/2017 More... Vascular dementia, uncomplicated [F01.50] 12/05/2017 More... Fall with injury [W19.XXXA] 01/01/2018 More... External otitis of right ear [H60.91] 01/01/2018 More... HTN (hypertension) [I10] 01/01/2018 More... DJD (degenerative joint disease) [M19.90] 01/01/2018 More... Chronic pain syndrome [G89.4] 01/01/2018 More... Chronic right shoulder pain [M25.511, G89.29] 07/20/2019 Primary osteoarthritis of right shoulder [M19.0*07/20/2019 Encounter Status:Closed by MATEO VANCE on 07/30/19 progress on 2019-07 PROGRESS HNO ID: [id number] Normal 07-20-2019 Frank Author: Shawn (Agus) [facility] Service: ? Zac Author Type: Physical Therapist ([id number]) Type: Progress Notes Filed: 07/20/2019 10:10 PM Note Text: Episode Visit Count: 1 Therapist That Will Oversee The Plan Of Care: hSawn Moore PT Start of Care Date: 07/20/19 Onset Date: 01/19/19 Plan of Care Certification Date: 07/20/19 Patient Identified by Name and Date of : Yes REHABILITATION AND SPORTS THERAPY PHYSICAL THERAPY EVALUATION PLAN OF CARE: Assessment: Anel Espino presents with the chief complain t of intermittent R shoulder and upper arm pain. She presents wit h impairments of pain, ROM limits, functional weakness and resulting funct ional limitations. She may benefit from skilled therapy services t o improve pain, ROM, strength, posture and overall function of R UE. Prognosis: Good Good due to: current objective clinical presentation;Prognos is may be limited Prognosis may be limited by: chronic nature of impairments;l imited support system;limited tolerance to activity Goals for Episode of Care: created on 07/20/19 through 08/30 [place] in home exercise program. Patient will decrease pain rating by 2 points to meet minima l clinical important difference for numeric pain rating scale. Patient will increase active ROM of R shoulder to WFL and sy mmetrical to allow pt to improved performance of ADLs. Patient will increase strength of R shoulder to WFL to allow for return to prior functional status and perform ADLs. Perform dressing, grooming, reaching and bed mobility withou t pain. Improve postural awareness. Planned Interventions, Frequency, and Duration: Current Freq uency: 1x every other week Duration: 6 weeks Total Number of Visits Planned: 3 Planned Treatment Interventions: Therapeutic exercise;Manual therapy;Therapeutic activities;Self-longterm management;Mod alities;Body Mechanics Training;Patient/Family/Caregiver EducationUltraso und PLAN FOR NEXT VISIT: Review, correct and progress HEP to maxine erance with emphasis on pain-free active therex for ROM, strength and fu nction. Modalites prn. Pt reports that her copay is a limiting facto r for attendance but that she is unable to do virtual visits and h er hearing difficulties will limit her ability to participate in teleph one follow ups. Patient demonstrates good understanding of plan of care and treatment. The above goals and plan of care were discussed and agreed u miladis by patient/family. SUBJECTIVE: Anel Espino is a 83 year old female seen tod ay for constant aching pain in R shoulder and upper arm that can be come sharp at times without explanation. She reports having several cortis one injections in R shoulder that provided temporary relief for several weeks but no intermediate benefit. She is right hand dominant. She re ports that her symptoms were aggravated in March when she fell and ascencio d to crawl to get up. She reports that the sharp pains can occur at rest i n seated. Patient Goals: decrease pain in R UE Functional Limitations: grooming;dressing;reaching behind ba ck;reaching overhead(bed mobility) Prior Level of Function: Independent with restrictions Independent with the following restrictions: chronic shoulde r pain that worsened Relevant History Medical Conditions: Asthma;Other Lung Problems Surgical Conditions: (Low back surgery 1990) Right or Left Handed: Right Employment: Retired Home Environment Patient Lives With: Self/Alone Intake Information: Prescription present Previous Treatment: Injections?;Pain meds? Pain: Pain Pain Level: 0(0/10 at rest currently, 9/10 at worst) Pain Location: Shoulder - Right;Upper Arm - Right Description: Aching;Sharp Frequency: Intermittent;Continuous Post Treatment Pain Post Treatment Pain Level: No Change Post Treatment Pain Location: Shoulder - Right;Upper Arm - R ight Post Treatment Pain Description: (same) PROMIS Scales T-scores: mean of general population = 50. 5 points is clini kizzy meaningfully difference Percentiles provide an indication of how the patient's score ranks in relation to the general population. Higher percentile corina gs indicate better function/quality of life. 50th percentile is the aver age of the general population and indicates half of respondents had a w orse score. T-scores: mean of general population = 50. 5 points is clini kizzy meaningfully difference Percentiles provide an indication of how the patient's score ranks in relation to the general population. Higher percentile corina gs indicate better function/quality of life. 50th percentile is the aver age of the general population and indicates half of respondents had a w orse score. OBJECTIVE MEASURES WITH LEVEL OF FUNCTION: Posture / Alignment Posture: Forward head;Rounded shoulders Shoulder Observations R Shoulder Palpation Tenderness: (sub AC region) UE AROM R UE AROM: seated L UE AROM: seated R Shoulder Extension: 40 Degrees R Shoulder Flex: 68 Degrees R Shoulder ABduction: 60 Degrees(increased pain with lowerin g) R Shoulder Internal Rotation (Functional): 32cm less than L reaching behind back R Shoulder External Rotation (Functional): 9cm less than L r eaching behind head L Shoulder Extension: 51 Degrees L Shoulder Flex: 128 Degrees L Shoulder ABduction: 141 Degrees UE and Cervical Strength R UE Strength: MMT deferred secondary to pain with simple AR OM. Pt's R shoulder function will improve once R UE strength increases Special Tests - Shoulder Shoulder Special Tests: Empty Can;Bethanie-Lanre Empty Can: Right Positive(pain but not distinct weakness) Bethanie-Lanre: Right Positive Education: Education Learning Preferences: Demonstration;Explanation;Performance; Printed Materials Barriers: Hearing Deficit Learning/educational needs: Plan of Care;Home exercise program;Posture;Body Mechanics Education Provided: Yes, see treatment interventions for edu cation provided Education Provided To: Patient Education Mode/Type: Demonstration;Explanation/Discussion;Literature/Printed Materials;Performance Response to Education/Teach Back: States/Identifies;Return Demonstration;Requires Review/Additional Education TREATMENT: Evaluation Therapeutic Exercise: 1: Pt was educated extensively on anatomy of symptomatic are a, likely source of symptoms, rationale for recommended treatment plan . Pt was educated on the difference between bony or joint tissue orig in and soft tissue origin. She was repeatedly instructed to stop any exe rcise that causes increased pain and to call between visits with any qu estions or concerns. 2: *seated wand AAROM for R shoulder flexion 2x10 3: *seated wand AAROM for R shoulder abduction 2x10 Skilled Intervention: Patient was educated in proper exercis e technique and purpose for exercises. Reviewed and educated patient on additions/changes for home exercise program as above (*) Skilled judgment was provided in selection of appropriate in terventions. Provided written instruction for home exercise program to fa cilitate proper performance and compliance. Correct performance of therapeutic exercises was facilitated with verbal, visual and tactile cuing. Patient education as noted. Billing: [facility]: Evaluation - Moderate Complexity ([id number]) Therapeutic Exercise ([id number]): 1:1 time: 15 minutes (1 unit: 8-22 mins) Total time / Length of visit: 45 minutes Shawn Moore PT obsolete on 2019-07 OBSOLETE Refill (INTMWS) Normal 07-20-2019 Jacob james ANEL Mcelroy ([id number]) 1935 F [place] Date Time Provider Department ([id number]) 07/20/19 SRIRAM VALDEZ INTMELINDA During your visit today, we recorded the following informati on about you: Connor Yen Pss 07/20/2019 4:54 PM Signed Patient called in asking for amitriptyli ne refilled yet I do not see it in her current medications. amitriptyline (ELAVIL) 75 mg tablet (Discontinued) 30 tablet 5 03/05/2019 03/05/2019 Sig: Take 1 tablet by mouth daily at bed time. May take extra half pill nightly as needed for sleep Sent to pharmacy as: amitriptyline (ELAVIL) 75 mg tablet That is the last one I saw for her. Please review then send to her mail order pharmacy please. Thank you, Connor Yen Pss Nina Bhanuoscar TREE SURGEON 07/21/2019 2:03 PM Signed Please review last refill per dispense meds was Mar 2019 Irvin Montero APRN.AUTOMOTIVE SERVICE DIRECTOR 07/22/2019 7:20 AM Signed Rx sent Allergies As of Date: 07/20/2019 Noted Allergy Reaction AMBIEN (ZOLPIDEM) 12/28/2012 14 - Other: See Comments Comments: Hangover effect/body aches GABAPENTIN 07/18/2014 14 - Other: See Comments Comments: states that made me crazy; tremor and made her f orgetful SULFA (SULFONAMIDE ANTIBIOTICS) 08/07/2006 4 - Hives Date Reviewed: 07/19/2019 Reviewed by: Irvin (Billet Assembler) [place] - Fully Assessed Reason for Visit: Refill Request [94] Refill Request [94] Reason For Visit History Recorded Visit Diagnoses:Radiculopathy with lower extremity symptoms [M54.10] Spinal stenosis, unspecified spinal region [M48.00] Psychophysiological insomnia [F51.04] Polypharmacy [Z79.899] Order(s):amitriptyline (ELAVIL) 50 mg tabletTake 1 tablet by mouth daily at bedtime. May take extra half pill nightly as needed for slee pDisp: 120 tabletRfl: 3 Prescriptions as of 07/20/2019 Sig: AMITRIPTYLINE 50 MG TABLET Take 1 tablet by mouth daily * IPRATROPIUM BROMIDE 42 MCG (0* Use 2 Sprays in the nose four * FLUTICASONE PROPIONATE 50 MCG* Use 1-2 Sprays in each nostri * CELECOXIB 200 MG CAPSULE Take 1 capsule by mouth once * OXYCODONE-ACETAMINOPHEN 10 MG* Take 1 tablet by mouth twice * CETIRIZINE 10 MG TABLET Take 1 tablet by mouth once d* DONEPEZIL 5 MG TABLET Take 1 tablet by mouth daily * OXYCODONE-ACETAMINOPHEN 10 MG* Take 1 tablet by mouth twice * CLOPIDOGREL 75 MG TABLET Take 1 tablet by mouth once d* HYDRALAZINE 10 MG TABLET Take 1 tablet by mouth four t* ATORVASTATIN 10 MG TABLET Take 1 tablet by mouth once d* CARVEDILOL 3.125 MG TABLET Take 1 tablet by mouth twice * POLYETHYLENE GLYCOL 3350 17 G* Take one (1) bottle, as instr * BISACODYL 5 MG TABLET,DELAYED* Take two (2) tablets, at the * PHENYLEPHRINE 0.25 % RECTAL S* 1 Suppository by RECTAL route * HYDROCORTISONE 2.5 % TOPICAL * 1 application by RECTAL route * TRIAMCINOLONE ACETONIDE 0.1 %* Apply 1 application to affect * ALBUTEROL SULFATE HFA 90 MCG/* Inhale 2 Puffs as instructed * ALBUTEROL SULFATE 2.5 MG/3 ML* Use 3 mL via nebulizer three * TRIAMCINOLONE ACETONIDE TOPIC* Apply to affected area. COMPOUNDED PRESCRIPTION Nebulizer for home use. Diagn* COMPOUNDED PRESCRIPTION BLOOD PRESSURE CUFF FOR HOME * [id number] C-M* Take 1 capsule by mouth once * GUAIFENESIN ORAL Take by mouth. Problem List As Of Date 07/20/2019 Noted Resolved Coronary atherosclerosis [I25.10] More... COPD (chronic obstructive pulmonary disease) (H* More... Unspecified Asthma [J45.909] More... Nonspecific abnormal results of liver function *01/13/2007 0 11/11/2011 CONSTIPATION NOS [K59.00] 01/13/2007 Mixed hyperlipidemia [E78.2] 04/09/2007 More... More... Former smoker [Z87.891] 11/16/2009 Spinal stenosis [M48.00] 11/16/2009 More... More... More... Insomnia [G47.00] 11/11/2011 More... Hearing loss [H91.90] 09/07/2014 Cerebrovascular accident (CVA) (HCC) [I63.9] 12/12/2015 Subdural hematoma (HCC) [S06.5X9A] 12/16/2016 Depression [F32.9] 05/01/2017 Uses hearing aid [Z97.4] 10/31/2017 More... Vascular dementia, uncomplicated [F01.50] 12/05/2017 More... Fall with injury [W19.XXXA] 01/01/2018 More... External otitis of right ear [H60.91] 01/01/2018 More... HTN (hypertension) [I10] 01/01/2018 More... DJD (degenerative joint disease) [M19.90] 01/01/2018 More... Chronic pain syndrome [G89.4] 01/01/2018 More... Chronic right shoulder pain [M25.511, G89.29] 07/20/2019 Primary osteoarthritis of right shoulder [M19.0*07/20/2019 Prescriptions ordered this encounter Disp Refills Start End AMITRIPTYLINE 75 MG TABLET 30 t* 5 07/22/2019 07/22/2019 Route: ORAL Sig: Take 1 tablet by mouth daily at bedtime. May take extra half pill nightly as needed for sleep AMITRIPTYLINE 50 MG TABLET 120 * 3 07/22/2019 Route: ORAL Sig: Take 1 tablet by mouth daily at bedtime. May take extra half pill nightly as needed for sleep Medications Discontinued During This Encounter amitriptyline (ELAVIL) 75 mg tablet 30 t* 5 07/22/2019 0 Route: ORAL Sig: Take 1 tablet by mouth daily at bedtime. May take extra half pill nightly as needed for sleep Disc: Reason for discontinue is not on file. Encounter Status:Closed by IRVIN BAL on 07/22/19 cntherapy on 07-19 CNTHERAPY OT/PT/Speech Visit (PTWS) Normal [facility] ANEL ESPINO ([id number]) 1935 [facility] Date Time Provider Department [facility] 07/20/19 1:15 PM SHAWN MOORE (PT) PTWS ([id number]) Date Time Provider Department [place] 07/20/2019 1:15 PM [id number], BRENT (PT) PTWS [facility] Reason for Visit: PT Eval [747] Primary Visit Diagnosis:Chronic right shoulder pain [M25.511 , G89.29] Other Visit Diagnoses:Arthritis of shoulder [M19.019] Primary osteoarthritis of right shoulder [M19.011] Allergies As of Date: 07/20/2019 Noted Allergy Reaction AMBIEN (ZOLPIDEM) 12/28/2012 14 - Other: See Comments Comments: Hangover effect/body aches GABAPENTIN 07/18/2014 14 - Other: See Comments Comments: states that made me crazy; tremor and made her f orgetful SULFA (SULFONAMIDE ANTIBIOTICS) 08/07/2006 4 - Hives Date Reviewed: 07/19/2019 Reviewed by: Irvin (Billet Assembler) [place] - Fully Assessed Prescriptions as of 07/20/2019 Sig: IPRATROPIUM BROMIDE 42 MCG (0* Use 2 Sprays in the nose four * FLUTICASONE PROPIONATE 50 MCG* Use 1-2 Sprays in each nostri * CELECOXIB 200 MG CAPSULE Take 1 capsule by mouth once * OXYCODONE-ACETAMINOPHEN 10 MG* Take 1 tablet by mouth twice * CETIRIZINE 10 MG TABLET Take 1 tablet by mouth once d* DONEPEZIL 5 MG TABLET Take 1 tablet by mouth daily * OXYCODONE-ACETAMINOPHEN 10 MG* Take 1 tablet by mouth twice * CLOPIDOGREL 75 MG TABLET Take 1 tablet by mouth once d* HYDRALAZINE 10 MG TABLET Take 1 tablet by mouth four t* ATORVASTATIN 10 MG TABLET Take 1 tablet by mouth once d* CARVEDILOL 3.125 MG TABLET Take 1 tablet by mouth twice * POLYETHYLENE GLYCOL 3350 17 G* Take one (1) bottle, as instr * BISACODYL 5 MG TABLET,DELAYED* Take two (2) tablets, at the * PHENYLEPHRINE 0.25 % RECTAL S* 1 Suppository by RECTAL route * HYDROCORTISONE 2.5 % TOPICAL * 1 application by RECTAL route * TRIAMCINOLONE ACETONIDE 0.1 %* Apply 1 application to affect * ALBUTEROL SULFATE HFA 90 MCG/* Inhale 2 Puffs as instructed * ALBUTEROL SULFATE 2.5 MG/3 ML* Use 3 mL via nebulizer three * TRIAMCINOLONE ACETONIDE TOPIC* Apply to affected area. COMPOUNDED PRESCRIPTION Nebulizer for home use. Diagn* COMPOUNDED PRESCRIPTION BLOOD PRESSURE CUFF FOR HOME * [id number] C-M* Take 1 capsule by mouth once * GUAIFENESIN ORAL Take by mouth. Progress Notes: Shawn Moore PT 07/20/2019 10:10 PM Signed Episode Visit Count: 1 Therapist That Will Oversee The Plan Of Care: Shawn Moore PT Start of Care Date: 07/20/19 Onset Date: 01/19/19 Plan of Care Certification Date: 07/20/19 Patient Identified by Name and Date of : Yes REHABILITATION AND SPORTS THERAPY PHYSICAL THERAPY EVALUATION PLAN OF CARE: Assessment: Anel Espino presents with the chief complaint of intermittent R shoulder and upper arm pain. She presents with impairments of pain, ROM limits, functional weakness and resulting functi onal limitations. She may benefit from skilled therapy services to improve pain, ROM, strengt h, posture and overall function of R UE. Prognosis: Good Good due to: current objective clinical presenta tion;Prognosis may be limited Prognosis may be limited by: chronic nature of impairments;l imited support system;limited tolerance to activity Goals for Episode of Care: created on 07/20/19 through 08/30 [place] in home exercise program. Patient will decrease pain r ating by 2 points to meet minimal clinical important difference for numeric pain rating scale. Patient will increase active ROM of R sh oulder to WFL and symmetrical to allow pt to improved performance of ADLs. Patient will increase streng th of R shoulder to WFL to allow for return to prior functional status and perform ADLs. Perform dressing, grooming, reaching and bed mobility withou t pain. Improve postural awareness. Planned Interventions, Frequency, and Duration: Current Fr equency: 1x every other week Duration: 6 weeks Total Number of Visits Planned: 3 Planned Treatment Interventi ons: Therapeutic exercise;Manual therapy;Therapeutic activities;Self-longterm management;Modalities;Body Mechani cs Training;Patient/Family/Caregiver EducationUltrasound PLAN FOR NEXT VISIT: Review, correct and progress HEP to tolerance with emphasis on pain-free active therex for ROM, strength and funct ion. Modalites prn. Pt reports that her copay is a limiting factor for attendance b ut that she is unable to do virtual visits and her hearing difficulties will limit her ability to participate in telephone follow ups. Patient demonstrates good understanding of plan of care and treatment. The above goals and plan of care were discus sed and agreed upon by patient/family. SUBJECTIVE: Anel Espino is a 83 year old female seen t ramone for constant aching pain in R shoulder and upper arm that can become sharp at times without explanation. She reports hav ing several cortisone injections in R shoulder that provided temporary relief for several weeks but no skyler g term benefit. She is right hand dominant. She reports that her sympto ms were aggravated in March when she fell and had to crawl to get up . She reports that the sharp pains can occur at rest in seated. Patient Goals: decrease pain in R UE Functional Limitations: grooming;dressing;reaching behind ba ck;reaching overhead(bed mobility) Prior Level of Function: Independent with restrictions Independent with the followi ng restrictions: chronic shoulder pain that worsened Relevant History Medical Conditions: Asthma;Other Lung Problems Surgical Conditions: (Low back surgery 1990) Right or Left Handed: Right Employment: Retired Home Environment Patient Lives With: Self/Alone Intake Information: Prescription present Previous Treatment: Injections?;Pain meds? Pain: Pain Pain Level: 0(0/10 at rest currently, 9/10 at worst) Pain Location: Shoulder - Right;Upper Arm - Right Description: Aching;Sharp Frequency: Intermittent;Continuous Post Treatment Pain Post Treatment Pain Level: No Change Post Treatment Pain Location: Shoulder - Right;Upper Arm - R ight Post Treatment Pain Description: (same) PROMIS Scales T-scores: mean of general population = 50. 5 points is clini kizzy meaningfully difference Percentiles provide an indication of how the patient's score ranks in relation to the general population. Higher percentile rankings indica te better function/quality of life. 50th percentile is the average of the general population and indicates half of respondents had a worse sco re. T-scores: mean of general population = 50. 5 points is clini kizzy meaningfully difference Percentiles provide an indication of how the patient's score ranks in relation to the general population. Higher percentile rankings indica te better function/quality of life. 50th percentile is the average of the general population and indicates half of respondents had a worse sco re. OBJECTIVE MEASURES WITH LEVEL OF FUNCTION: Posture / Alignment Posture: Forward head;Rounded shoulders Shoulder Observations R Shoulder Palpation Tenderness: (sub AC region) UE AROM R UE AROM: seated L UE AROM: seated R Shoulder Extension: 40 Degrees R Shoulder Flex: 68 Degrees R Shoulder ABduction: 60 Degrees(increased pain with lowerin g) R Shoulder Internal Rotation (Functional): 32cm less than L reaching behind back R Shoulder External Rotation (Functional): 9cm less than L reaching behind head L Shoulder Extension: 51 Degrees L Shoulder Flex: 128 Degrees L Shoulder ABduction: 141 Degrees UE and Cervical Strength R UE Strength: MMT deferred secondary to pain with simple AROM. Pt's R shoulder function will improve once R UE strength increases Special Tests - Shoulder Shoulder Special Tests: Empty Can;Kovacs-Lanre Empty Can: Right Positive(pain but not distinct weakness) [place]acs-Lanre: Right Positive Education: Education Learning Preferences: Demonstration;Explanation; Performance;Printed Materials Barriers: Hearing Deficit Learning/educational needs: Plan of Care;Home exercise pro gram;Posture;Body Mechanics Education Provided: Yes, see treatment interventions for e ducation provided Education Provided To: Patient Education Mode/Type: Demonstration;Explanation/Discuss ion;Literature/Printed Materials;Performance Response to Education/Teach Back: States/Identifies;Return Demonstration;Requires Review/Additional Education TREATMENT: Evaluation Therapeutic Exercise: 1: Pt was educated extensive ly on anatomy of symptomatic area, likely source of symptoms, rationale for recommended treatment plan. Pt was e ducated on the difference between bony or joint tissue origin and soft tissue origin. She was repeatedly instructed to stop any exercise that causes increased pain and to call between visits with any questions or concerns. 2: *seated wand AAROM for R shoulder flexion 2x10 3: *seated wand AAROM for R shoulder abduction 2x10 Skilled Intervention: Patient was educated in proper exerc ise technique and purpose for exercises. Reviewed and educated patien t on additions/changes for home exercise program as above (*) Skilled judgment was provided in selection of appropriate in terventions. Provided written instruction for home exercise program to facilitate proper performance and compliance. Correct performance of thera peutic exercises was facilitated with verbal, visual and tactile cuing. Patient education as noted. Billing: [facility]: Evaluation - Moderate Complexity (51245) Therapeutic Exercise (74860): 1:1 time: 15 minutes (1 unit: 8-22 mins) Total time / Length of visit: 45 minutes Shawn Moore PT progress on 2019-07 PROGRESS HNO ID: [id number] Normal 07-19-[address] [facility] Author: Irvin Hartley) Winston Clifford ([id number]) Service: ? Author Type: Nurse Specialist Type: Progress Notes Filed: 07/19/2019 11:23 AM Note Text: This Team Access Model visit is a phone encounter. It requir ed patient-provider interaction for the medical decision making as documented below. DISTANCE HEALTH VISIT This Team Access Model visit is a phone encounter. It requir ed patient-provider interaction for the medical decision making as documented below. HPI from last visit excerpted: Anel Espino is a 83 year old female seen for right shoul ariel pain which is chronic. She notes pain is from anterior right shoulder d own to her wrist. She was seen by Dr. aDvis in March after sustaining a fall and having acute on chronic right shoulder pain. Has not recentl y gone to physical therapy. She notes that pain is currently increased with decreased range of motion and pain with movement such as ope beck a car door. No currently doing home exercises or stretches. She wo uld like to go to physical therapy. She reports she is taking Tylenol 1 or 2 per day, Avinza does help. She is taking Percocet once daily which al so helps. Without report of adverse effects of opioid. Today reports - Shoulder pain: Improved with Celebrex, would like refill. No AEs noted. Home exercises: Not currently doing Nasal drainage continues She reports only occasionally taking oral allergy medication ?cetirizine. States using ipratropium nasal spray consistently. Not currently using fluticasone nasal spray. HISTORY REVIEWED (electronic chart updated): - medical history - medications - allergies REVIEW OF SYSTEMS: GENERAL: feeling well without fatigue, no recent change in w eight MUSCULOSKELETAL: see HPI PHYSICAL EXAMINATION: Alert, answering questions appropriately. No cough shortness breath or wheezing noted with conversation. VIDEO EXAM: (if done, performed via video enabled technology ) see above ASSESSMENT: No diagnosis found. PLAN: 1. Chronic right shoulder pain - ICD9: 719.41, 338.29, ICD10 : M25.511, G89.29 (primary diagnosis) 2. Arthritis of shoulder - ICD9: 716.91, ICD10: M19.019 Does not appear to be doing home exercises currently She notes decreased pain with Celebrex, would like to contin ue for now Has PT appt tomorrow - CONSULT TO PHYSICAL THERAPY - CELECOXIB 200 MG CAPSULE Continue with current medications unchanged, Tylenol and whe n necessary Percocet. Continue with Celebrex for now, take with food. Sc hedule with physical therapy once stayed home restrictions are relieved 2. Nasal drainage - ICD9: 478.19, ICD10: J34.89 She is not consistently taking cetirizine or Flonase. Curren tly only using ipratropium. Occasionally adding NyQuil. Recommend addition of Flonase for period of time in addition to ipratropium nasal spray to see if this helps. If not add oral antihistamine such as cetirizine. She states pharmacist told her she should not need more than one medication for nasal drainage. If not improving with all of the above consider director of consumer marketing or ENT visit. There are no Patient Instructions on file for this visit. 20 min in visit Irvin Montero APRN.AUTOMOTIVE SERVICE DIRECTOR progress on 2019-06 PROGRESS HNO ID: [id number] Normal 07-06-[address] [facility] Author: Vero Rivera [facility] ([id number]) Service: ? Author Type: ? Type: Progress Notes Filed: 07/06/2019 1:12 PM Note Text: HIGH RISK CHRONIC DISEASE MONITORING Provider Action/FYI: Contact made with patient: Yes Patient identified by name and . Discussed care with patient Hi my name is Vero Oliveira and I am calling from the [facility] on behalf of your PCP, Sriram Valdez MD Because of the Covid-19 outbreak, I am calling to help make sure you are feeling wel l and that you have what you need to manage your well-being, since it is so important to stay home and take social distancing seriously to help prote ct your health at this time. If you have any health concerns, we will come up with a plan on how to proceed. SYMPTOMS: I'd like to ask some question about how you are managing you r health. Would that be OK? Yes Do you have any new or worsening symptoms that you'd like to discuss with your doctor? No ACTION TAKEN: No action required - No symptoms reported. MEDICATIONS: Do you have any questions about taking your medication or wh ich medications you should be on? No Do you need any medication refills at this time, including a ny of the medications you might take only when needed? No ACTION TAKEN: No action required SOCIAL: We would like to make sure you have what you need so that yo ur basics needs are met - including your personal safety, food, housin g and medications. Would you like to speak with a social work residential team leader to help give you support for any of these needs? No It can be normal to feel anxious or down during a time like this. Would you like to talk to a mental health professional about how y ou have been feeling? No ACTION TAKEN: No action taken Thank you for taking the time to talk with me today. We want to work with you to ensure that we are keeping your medical conditions we ll-controlled and to keep you healthy and out of the doctor's office or ho spital. Our team would like to stay connected with you to make sure you are feeling well. Our calls should take 10 minutes or less, and we'll pl an to call you weekly for the next few weeks to months while this outbreak continues to help make sure you stay well. Remember in the meantime, if y ou have concerns in between our calls, please call your PCP's office right away. Thank you. At present, these are our recommendations regarding the hector navirus (COVID-19) outbreak: ? Avoid public places as much as possible. ? Avoid close contact (within 6 feet) with others you don't live with, especially if they are sick. ? Stay home if you are sick. ? Wash your hands regularly for at least 20 seconds with soa p and water. ? Wear a cloth mask in public places to help reduce communit y spread. ? Do not go to your Doctor's office unless instructed to do so. For any non-emergency symptoms, call your Doctor's office to get ins tructions on how to manage (we might recommend a telephone or virtual vis it). For emergency symptoms, proceed to Emergency Department as usual but inform them of cough and fever symptoms MIRACLE if present (or call on the way if possible). Enter next patient outreach date for the following week on t he same day of the week as today in the Track Pt Outreach section. cnptoutreach on CNPTOUTREACH Patient Outreach (INTMWS) Normal 0 07-06-2019 [facility] ANEL ESPINO ([id number]) 1935 [facility] Date Time Provider Department ([id number]) 07/06/19 VERO RIVERA (TEE) INTMWS During your visit today, we recorded the following informati on about you: Vero Rivera [facility] 07/06/2019 1:12 PM Signed HIGH RISK CHRONIC DISEASE MONITORING Provider Action/FYI: Contact made with patient: Yes Patient identified by name and . Discussed care with patient Hi my name is Vero Oliveira and I am calling from the [facility] on behalf of your PCP, Sriram Valdez MD Because of the Covid-19 outbreak, I am calling to help make sure you are feelin g well and that you have what you need to manage your well-being, since it is so important to stay home and take social distancing seriously to help protect your healt h at this time. If you have any health concerns, we will come up with a plan on how to proceed. SYMPTOMS: I'd like to ask some question about how you are managing y our health. Would that be OK? Yes Do you have any new or worsening symptom s that you'd like to discuss with your doctor? No ACTION TAKEN: No action required - No symptoms reported. MEDICATIONS: Do you have any questions ab out taking your medication or which medications you should be on? No Do you need any medication refills at this time, including a ny of the medications you might take only when needed? No ACTION TAKEN: No action required SOCIAL: We would like to make sure y ou have what you need so that your basics needs are met - including your personal safety, fo od, housing and medications. Would you like to speak with a social work residential team leader to help give you support for any of these needs? No It can be normal to feel anxious or down during a time lik e this. Would you like to talk to a mental health professional abo ut how you have been feeling? No ACTION TAKEN: No action taken Thank you for taking the time to talk with me to day. We want to work with you to ensure that we are keeping your medical conditions well-controlled and to keep you healthy and out of the doctor's office or [facility] l. Our team would like to stay connected with you to make sure you are f eeling well. Our calls should take 10 minutes or less, and we'l l plan to call you weekly for the next few weeks to months while this outbreak continues to h elp make sure you stay well. Remember in the meantime, if you have concerns in betw een our calls, please call your PCP's office right away. Thank you. At present, these are our recommendation s regarding the coronavirus (COVID-19) outbreak: ? Avoid public places as much as possible. ? Avoid close contact (within 6 feet) with others you don't live with, especially if they are sick. ? Stay home if you are sick. ? Wash your hands regularly for at least 20 seconds with soa p and water. ? Wear a cloth mask in public places to help reduce communit y spread. ? Do not go to your Doctor's office unless instructed to do so. For any non-emergency symptoms, call your Doctor's office to get instructions on how to manage (we might recommend a telephone or virtual visit). Fo r emergency symptoms, proceed to Emergen cy Department as usual but inform them of cough and fever symptoms MIRACLE if present (or call on the way if possib le). Enter next patient outreach date for the following week on the same day of the week as today in the Track Pt Outreach section. Allergies As of Date: 07/06/2019 Noted Allergy Reaction AMBIEN (ZOLPIDEM) 12/28/2012 14 - Other: See Comments Comments: Hangover effect/body aches GABAPENTIN 07/18/2014 14 - Other: See Comments Comments: states that made me crazy; tremor and made her f orgetful SULFA (SULFONAMIDE ANTIBIOTICS) 08/07/2006 4 - Hives Date Reviewed: 05/21/2019 Reviewed by: Eli Hernández LPN - Fully Assessed Reason for Visit: community monitoring outreach [Other] Cmt: initial call Prescriptions as of 07/06/2019 Sig: CELECOXIB 200 MG CAPSULE Take 1 capsule by mouth once * OXYCODONE-ACETAMINOPHEN 10 MG* Take 1 tablet by mouth twice * FLUTICASONE PROPIONATE 50 MCG* Use 1-2 Sprays in each nostri * LEVOCETIRIZINE 5 MG TABLET Take 1 tablet by mouth once d* IPRATROPIUM BROMIDE 42 MCG (0* Use 2 Sprays in the nose four * DONEPEZIL 5 MG TABLET Take 1 tablet by mouth daily * OXYCODONE-ACETAMINOPHEN 10 MG* Take 1 tablet by mouth twice * CLOPIDOGREL 75 MG TABLET Take 1 tablet by mouth once d* HYDRALAZINE 10 MG TABLET Take 1 tablet by mouth four t* ATORVASTATIN 10 MG TABLET Take 1 tablet by mouth once d* CARVEDILOL 3.125 MG TABLET Take 1 tablet by mouth twice * POLYETHYLENE GLYCOL 3350 17 G* Take one (1) bottle, as instr * BISACODYL 5 MG TABLET,DELAYED* Take two (2) tablets, at the * PHENYLEPHRINE 0.25 % RECTAL S* 1 Suppository by RECTAL route * HYDROCORTISONE 2.5 % TOPICAL * 1 application by RECTAL route * TRIAMCINOLONE ACETONIDE 0.1 %* Apply 1 application to affect * ALBUTEROL SULFATE HFA 90 MCG/* Inhale 2 Puffs as instructed * ALBUTEROL SULFATE 2.5 MG/3 ML* Use 3 mL via nebulizer three * TRIAMCINOLONE ACETONIDE TOPIC* Apply to affected area. COMPOUNDED PRESCRIPTION Nebulizer for home use. Diagn* COMPOUNDED PRESCRIPTION BLOOD PRESSURE CUFF FOR HOME * RPBGEXWKPLE-EAPRZLKCX-LES C-M* Take 1 capsule by mouth once * GUAIFENESIN ORAL Take by mouth. Problem List As Of Date 07/06/2019 Noted Resolved Coronary atherosclerosis [I25.10] More... COPD (chronic obstructive pulmonary disease) (H* More... Unspecified Asthma [J45.909] More... Nonspecific abnormal results of liver function *01/13/2007 0 11/11/2011 CONSTIPATION NOS [K59.00] 01/13/2007 Mixed hyperlipidemia [E78.2] 04/09/2007 More... More... Former smoker [Z87.891] 11/16/2009 Spinal stenosis [M48.00] 11/16/2009 More... More... More... Insomnia [G47.00] 11/11/2011 More... Hearing loss [H91.90] 09/07/2014 Cerebrovascular accident (CVA) (HCC) [I63.9] 12/12/2015 Subdural hematoma (HCC) [S06.5X9A] 12/16/2016 Depression [F32.9] 05/01/2017 Uses hearing aid [Z97.4] 10/31/2017 More... Vascular dementia, uncomplicated [F01.50] 12/05/2017 More... Fall with injury [W19.XXXA] 01/01/2018 More... External otitis of right ear [H60.91] 01/01/2018 More... HTN (hypertension) [I10] 01/01/2018 More... DJD (degenerative joint disease) [M19.90] 01/01/2018 More... Chronic pain syndrome [G89.4] 01/01/2018 More... Encounter Status:Closed by [facility]ERO DAY [facility]06[facility] Tele[facility] (INTMWS) Normal 07-06-2019 [place] ANEL Mcelroy ([id number]) 1935 [place] Date Time Provider Department ([id number]) 07/06/19 SRIRAM VALDEZ INTMWS During your visit today, we recorded the following informati on about you: Vero Rivera [facility] 07/06/2019 1:14 PM Signed Patient states she still has runny nose as noted a few month s ago. States prescription did not work. She has also been trying B enadryl. Patient is requesting a call from [facility] for mary sanchez. Cj Neely APRN.DAKOTA 07/07/2019 2:11 PM Signed Can try Clemencia in place of Xyzal. Prescription sent to the pharmacy, also available OTC. Cj Neely APRN.DAKOTA The following approved medic ation requests have been transmitted electronically. Signed Prescriptions Disp Refills fexofenadine (CLEMENCIA ALLERGY) 60 mg tablet 30 tablet 2 Sig: Take 1 tablet by mouth once daily. Authorizing Provider: CJ NEELY (DAKOTA) DEO [facility] 07/07/2019 2:25 PM Signed Patient states she tried clemencia, claritin, and flonase with out benefit. Cj Neely APRN.CNP 07/07/2019 2:49 PM Signed Zyrtec would be the alternative. Cj Neely APRN.DAKOTA The following approved medic ation requests have been transmitted electronically. Signed Prescriptions Disp Refills cetirizine (ZYRTEC) 10 mg tablet 30 tablet 2 Sig: Take 1 tablet by mouth once daily. Authorizing Provider: CJ NEELY (DAKOTA) DEO [facility] 07/07/2019 2:53 PM Signed Left detailed message on secure [employer] with all informati on. Leida Ahmadi [facility] July 07, 2019 2:53 PM Miracle Atkinson, RN, RN 07/07/2019 3:03 PM Signed Pt calls stating she has already tried Zyrtec. States she will not picker operator. Allergies As of Date: 07/06/2019 Noted Allergy Reaction AMBIEN (ZOLPIDEM) 12/28/2012 14 - Other: See Comments Comments: Hangover effect/body aches GABAPENTIN 07/18/2014 14 - Other: See Comments Comments: states that made me crazy; tremor and made her f orgetful SULFA (SULFONAMIDE ANTIBIOTICS) 08/07/2006 4 - Hives Date Reviewed: 05/21/2019 Reviewed by: Eli Hernández TREE SURGEON - Fully Assessed Reason for Visit: Medication Follow-up [270] Order(s):cetirizine (ZYRTEC) 10 mg tabletTake [address] tablet [address] [facility] once daily.Disp: 30 tabletRfl: 2 Prescriptions as of 07/06/2019 Sig: CETIRIZINE 10 MG TABLET Take 1 tablet by mouth once d* CELECOXIB 200 MG CAPSULE Take 1 capsule by mouth once * OXYCODONE-ACETAMINOPHEN 10 MG* Take 1 tablet by mouth twice * FLUTICASONE PROPIONATE 50 MCG* Use 1-2 Sprays in each nostri * IPRATROPIUM BROMIDE 42 MCG (0* Use 2 Sprays in the nose four * DONEPEZIL 5 MG TABLET Take 1 tablet by mouth daily * CLOPIDOGREL 75 MG TABLET Take 1 tablet by mouth once d* HYDRALAZINE 10 MG TABLET Take 1 tablet by mouth four t* ATORVASTATIN 10 MG TABLET Take 1 tablet by mouth once d* CARVEDILOL 3.125 MG TABLET Take 1 tablet by mouth twice * POLYETHYLENE GLYCOL 3350 17 G* Take one (1) bottle, as instr * BISACODYL 5 MG TABLET,DELAYED* Take two (2) tablets, at the * PHENYLEPHRINE 0.25 % RECTAL S* 1 Suppository by RECTAL route * HYDROCORTISONE 2.5 % TOPICAL * 1 application by RECTAL route * TRIAMCINOLONE ACETONIDE 0.1 %* Apply 1 application to affect * ALBUTEROL SULFATE HFA 90 MCG/* Inhale 2 Puffs as instructed * ALBUTEROL SULFATE 2.5 MG/3 ML* Use 3 mL via nebulizer three * TRIAMCINOLONE ACETONIDE TOPIC* Apply to affected area. COMPOUNDED PRESCRIPTION Nebulizer for home use. Diagn* COMPOUNDED PRESCRIPTION BLOOD PRESSURE CUFF FOR HOME * [id number]-CPM C-M* Take 1 capsule by mouth once * GUAIFENESIN ORAL Take by mouth. Problem List As Of Date 07/06/2019 Noted Resolved Coronary atherosclerosis [I25.10] More... COPD (chronic obstructive pulmonary disease) (H* More... Unspecified Asthma [J45.909] More... Nonspecific abnormal results of liver function *01/13/2007 0 11/11/2011 CONSTIPATION NOS [K59.00] 01/13/2007 Mixed hyperlipidemia [E78.2] 04/09/2007 More... More... Former smoker [Z87.891] 11/16/2009 Spinal stenosis [M48.00] 11/16/2009 More... More... More... Insomnia [G47.00] 11/11/2011 More... Hearing loss [H91.90] 09/07/2014 Cerebrovascular accident (CVA) (HCC) [I63.9] 12/12/2015 Subdural hematoma (HCC) [S06.5X9A] 12/16/2016 Depression [F32.9] 05/01/2017 Uses hearing aid [Z97.4] 10/31/2017 More... Vascular dementia, uncomplicated [F01.50] 12/05/2017 More... Fall with injury [W19.XXXA] 01/01/2018 More... External otitis of right ear [H60.91] 01/01/2018 More... HTN (hypertension) [I10] 01/01/2018 More... DJD (degenerative joint disease) [M19.90] 01/01/2018 More... Chronic pain syndrome [G89.4] 01/01/2018 More... Prescriptions ordered this encounter Disp Refills Start End FEXOFENADINE 60 MG TABLET 30 t* 2 07/07/2019 07/07/2019 Route: ORAL Sig: Take 1 tablet by mouth once daily. Disc: Lack of Efficacy CETIRIZINE 10 MG TABLET 30 t* 2 07/07/2019 Route: ORAL Sig: Take 1 tablet by mouth once daily. Medications Discontinued During This Encounter Levocetirizine (XYZAL) 5 mg tablet 30 t* 5 05/21/2019 0 Route: ORAL Sig: Take 1 tablet by mouth once daily. for nasal drainage Disc: Lack of Efficacy fexofenadine (CLEMENCIA ALLERGY) 60 mg* 30 t* 2 07/07/201907/06 Route: ORAL Sig: Take 1 tablet by mouth once daily. Disc: Lack of Efficacy Encounter Status:Closed by LEIDA AHMADI CMA on 07/07/19 progress on 2019-06 PROGRESS HNO ID: [id number] Normal 06-21-[address] [facility] Author: Irvin (Billet Assembler) Winston Frank ([id number]) Service: ? Author Type: Nurse Specialist Type: Progress Notes Filed: 06/21/2019 10:30 AM Note Text: This Team Access Model visit is a phone encounter. It requir ed patient-provider interaction for the medical decision making as documented below. DISTANCE HEALTH VISIT This Team Access Model visit is a phone encounter. It requir ed patient-provider interaction for the medical decision making as documented below. Anel Espino is a 83 year old female seen for right shoul ariel pain which is chronic. She notes pain is from anterior right shoulder d own to her wrist. She was seen by in March after sustaining a fall and having acute on chronic right shoulder pain. Has not recentl y gone to physical therapy. She notes that pain is currently increased with decreased range of motion and pain with movement such as ope beck a car door. No currently doing home exercises or stretches. She wo uld like to go to physical therapy. She reports she is taking Tylenol 1 or 2 per day, Avinza does help. She is taking Percocet once daily which al so helps. Without report of adverse effects of opioid. HISTORY REVIEWED (electronic chart updated): - medical history - medications - allergies REVIEW OF SYSTEMS: GENERAL: feeling well without fatigue, no recent change in w eight MUSCULOSKELETAL: see HPI PHYSICAL EXAMINATION: Alert, answering questions appropriately. No cough shortness breath or wheezing noted with conversation. VIDEO EXAM: (if done, performed via video enabled technology ) see above ASSESSMENT: (M25.511, G89.29) Chronic right shoulder pain (primary encou nter diagnosis) (M19.019) Arthritis of shoulder PLAN: ASSESSMENT/PLAN: 1. Chronic right shoulder pain - ICD9: 719.41, 338.29, ICD10 : M25.511, G89.29 (primary diagnosis) - CONSULT TO PHYSICAL THERAPY - CELECOXIB 200 MG CAPSULE 2. Arthritis of shoulder - ICD9: 716.91, ICD10: M19.019 - CONSULT TO PHYSICAL THERAPY - CELECOXIB 200 MG CAPSULE Continue with current medications unchanged, Tylenol and whe n necessary Percocet. Addition of Celebrex for now, take with food. Sche dule with physical therapy once stayed home restrictions are relieved. Will mail home exercises to complete until able to come in for physica l therapy. Follow-up in one month to see how she is doing, sooner as ne eded Irvin Montero, SENIOR NATIONAL ACCOUNT MANAGER.AUTOMOTIVE SERVICE DIRECTOR There are no Patient Instructions on file for this visit. 20 min in visit Irvin Montero APRN.JADE cnpn on 2019-06-17 CNPN Telephone (FAMPWS) Normal 06-17-2019 [facility] ANEL ESPINO ([id number]) 1935 [place] Date Time Provider Department ([id number]) 06/17/19 SRIRAM VALDEZ During your visit today, we recorded the following informati on about you: Marsha Dowd Pss 06/17/2019 12:31 PM Signed She needs something stronger for the pain in the arm and douglas ulder. She was told surgery was not option and what she is using is n ot working. She cannot even roll over in bed. She has tried Biofreeze and Aspercrem e. Is there something stronger than the Percocet that she can take? Sriram Valdez MD 06/17/2019 8:30 PM Signed Will need to discuss with rissa pak since cannot prescribe a new narcotic without a face to face appointment or a Virtual Visit (or FaceTime /video chat) plus also need same type of appointment in order to c yonisjavier to prescribe what she is already on given COVID19 precautions and rules for cont rolled pain meds. Other issue is that narcotics might not control arthritis pain or whatever is causing her arm and shoulder pain. Noted that has appointment scheduled with Irvin schaefer up bu subha can offer a Virtual Visit with me Friday late AM. Clarify--did she recently see an orthopedist who told her that she is not a surgical candidate? Also, her pain seemed under fair control with Percocet in April--not perfect but was better than Vicodin.Follow up as necessary. Nina Court CHAVES 06/18/2019 11:33 AM Signed called pt and she does not have a I phone, no e mail, unable to do a face to face. Sriram Valdez MD 06/18/2019 2:46 PM Signed If she has a computer with a camera, she can get an email ad dress. Any family members that can help her do a Video Chat type ap pointment? If she does not have any respiratory sym ptoms and has not had any contact with anyone diagnosed with COVID19 or possibl e COVID19, we could bring her in for a face to face appointment. Otherwise, have to stay on same meds and try to treat with other meds that are not opiates. Allergies As of Date: 06/17/2019 Noted Allergy Reaction AMBIEN (ZOLPIDEM) 12/28/2012 14 - Other: See Comments Comments: Hangover effect/body aches GABAPENTIN 07/18/2014 14 - Other: See Comments Comments: states that made me crazy; tremor and made her f orgetful SULFA (SULFONAMIDE ANTIBIOTICS) 08/07/2006 4 - Hives Date Reviewed: 05/21/2019 Reviewed by: Eli Hernández LPN - Fully Assessed Reason for Visit: Question [1327] Reason For Visit History Recorded Visit Diagnoses:Leg pain, right [M79.604] Comment:Chronic pain plus now has large hematome on morelos from fall; gradually resolving Pain in the muscles, right leg [M79.10] Spinal stenosis of lumbar region, unspecified whether neurogenic claudication present [M48.061] Comment:Percocet more effective than Hydrocodone. Will resume at BID. Prescriptions as of 06/17/2019 Sig: OXYCODONE-ACETAMINOPHEN 10 MG* Take 1 tablet by mouth twice * FLUTICASONE PROPIONATE 50 MCG* Use 1-2 Sprays in each nostri * LEVOCETIRIZINE 5 MG TABLET Take 1 tablet by mouth once d* IPRATROPIUM BROMIDE 42 MCG (0* Use 2 Sprays in the nose four * DONEPEZIL 5 MG TABLET Take 1 tablet by mouth daily * OXYCODONE-ACETAMINOPHEN 10 MG* Take 1 tablet by mouth twice * CLOPIDOGREL 75 MG TABLET Take 1 tablet by mouth once d* HYDRALAZINE 10 MG TABLET Take 1 tablet by mouth four t* ATORVASTATIN 10 MG TABLET Take 1 tablet by mouth once d* CARVEDILOL 3.125 MG TABLET Take 1 tablet by mouth twice * POLYETHYLENE GLYCOL 3350 17 G* Take one (1) bottle, as instr * BISACODYL 5 MG TABLET,DELAYED* Take two (2) tablets, at the * PHENYLEPHRINE 0.25 % RECTAL S* 1 Suppository by RECTAL route * HYDROCORTISONE 2.5 % TOPICAL * 1 application by RECTAL route * TRIAMCINOLONE ACETONIDE 0.1 %* Apply 1 application to affect * ALBUTEROL SULFATE HFA 90 MCG/* Inhale 2 Puffs as instructed * ALBUTEROL SULFATE 2.5 MG/3 ML* Use 3 mL via nebulizer three * TRIAMCINOLONE ACETONIDE TOPIC* Apply to affected area. COMPOUNDED PRESCRIPTION Nebulizer for home use. Diagn* COMPOUNDED PRESCRIPTION BLOOD PRESSURE CUFF FOR HOME * [id number] C-M* Take 1 capsule by mouth once * GUAIFENESIN ORAL Take by mouth. Problem List As Of Date 06/17/2019 Noted Resolved Coronary atherosclerosis [I25.10] More... COPD (chronic obstructive pulmonary disease) (H* More... Unspecified Asthma [J45.909] More... Nonspecific abnormal results of liver function *01/13/2007 0 11/11/2011 CONSTIPATION NOS [K59.00] 01/13/2007 Mixed hyperlipidemia [E78.2] 04/09/2007 More... More... Former smoker [Z87.891] 11/16/2009 Spinal stenosis [M48.00] 11/16/2009 More... More... More... Insomnia [G47.00] 11/11/2011 More... Hearing loss [H91.90] 09/07/2014 Cerebrovascular accident (CVA) (HCC) [I63.9] 12/12/2015 Subdural hematoma (HCC) [S06.5X9A] 12/16/2016 Depression [F32.9] 05/01/2017 Uses hearing aid [Z97.4] 10/31/2017 More... Vascular dementia, uncomplicated [F01.50] 12/05/2017 More... Fall with injury [W19.XXXA] 01/01/2018 More... External otitis of right ear [H60.91] 01/01/2018 More... HTN (hypertension) [I10] 01/01/2018 More... DJD (degenerative joint disease) [M19.90] 01/01/2018 More... Chronic pain syndrome [G89.4] 01/01/2018 More... Encounter Status:Closed by IRVIN BAL on 06/21/19 dakotan on 2019-06-10 CNPN Telephone (FAMPWS) Normal 06-10-2019 [place] ANEL Mcelroy ([id number]) 1935 F [place] Date Time Provider Department ([id number]) 06/10/19 AJAY PRIETO (STACI) FAMPWS During your visit today, we recorded the following informati on about you: Ajay Pireto DNP.CNP, SENIOR NATIONAL ACCOUNT MANAGERLIBERTY 06/10/2019 10:21 AM Addendum Labs previously reviewed at prior appts. LFTs we re elevated at the time. Need to ensure that they have trended down. Please have patient repeat LFTs in 2 months when COVID 19 ascencio s decreased. ASSESSMENT/PLAN: 1. Elevated liver function tests - ICD9: 790.6, ICD10: R94.5 Repeat in 2 months. - HEPATIC FUNCTION PNL Ajay Prieto DNP.CNP [place] [id number] Component Latest Ref Rng AND Units 04/23/2019 Protein, Total 6.3 - 8.0 g/dL 6.8 Albumin 3.9 - 4.9 g/dL 4.5 Calcium 8.5 - 10.2 mg/dL 9.9 Bilirubin, Total 0.2 - 1.3 mg/dL 0.7 Alkaline Phosphatase 34 - 123 U/L 115 AST 13 - 35 U/L 234 (H) Glucose 74 - 99 mg/dL 109 (H) BUN 7 - 21 mg/dL 26 (H) Creatinine 0.58 - 0.96 mg/dL 1.07 (H) Sodium 136 - 144 mmol/L 142 Potassium 3.7 - 5.1 mmol/L 4.3 Chloride 97 - 105 mmol/L 104 CO2 22 - 30 mmol/L 25 Anion Gap 9 - 18 mmol/L 13 ALT 7 - 38 U/L 112 (H) eGFR- 60 eGFR-All Other Races . 49 WBC 3.70 - 11.00 k/uL 9.33 RBC 3.90 - 5.20 m/uL 4.85 Hemoglobin 11.5 - 15.5 g/dL 13.3 Hematocrit 36.0 - 46.0 % 44.0 MCV 80.0 - 100.0 fL 90.7 MCH 26.0 - 34.0 pG 27.4 MCHC 30.5 - 36.0 g/dL 30.2 (L) RDW-CV 11.5 - 15.0 % 13.7 Platelet Count 150 - 400 k/uL 286 MPV 9.0 - 12.7 fL 10.7 Absolute nRBC <0.01 k/uL <0.01 Nina Cortez LPN 06/10/2019 2:15 PM Signed Message left for pt to return call to a nurse. Nina Cortez LPN 06/14/2019 2:38 PM Signed Patient notified of results and provider's instructions. P atient verbalizes understanding. Nina Cortez LPN Allergies As of Date: 06/10/2019 Noted Allergy Reaction AMBIEN (ZOLPIDEM) 12/28/2012 14 - Other: See Comments Comments: Hangover effect/body aches GABAPENTIN 07/18/2014 14 - Other: See Comments Comments: states that made me crazy; tremor and made her f orgetful SULFA (SULFONAMIDE ANTIBIOTICS) 08/07/2006 4 - Hives Date Reviewed: 05/21/2019 Reviewed by: Eli Hernández LPN - Fully Assessed Reason for Visit: Results [95] Primary Visit Diagnosis:Elevated liver function tests [R94.5 ] Order(s):HEPATIC FUNCTION PNL [SQHFP] Order #: [id number] FU ROSIE Prescriptions as of 06/10/2019 Sig: OXYCODONE-ACETAMINOPHEN 10 MG* Take 1 tablet by mouth twice * FLUTICASONE PROPIONATE 50 MCG* Use 1-2 Sprays in each nostri * LEVOCETIRIZINE 5 MG TABLET Take 1 tablet by mouth once d* IPRATROPIUM BROMIDE 42 MCG (0* Use 2 Sprays in the nose four * DONEPEZIL 5 MG TABLET Take 1 tablet by mouth daily * CLOPIDOGREL 75 MG TABLET Take 1 tablet by mouth once d* HYDRALAZINE 10 MG TABLET Take 1 tablet by mouth four t* ATORVASTATIN 10 MG TABLET Take 1 tablet by mouth once d* CARVEDILOL 3.125 MG TABLET Take 1 tablet by mouth twice * POLYETHYLENE GLYCOL 3350 17 G* Take one (1) bottle, as instr * BISACODYL 5 MG TABLET,DELAYED* Take two (2) tablets, at the * PHENYLEPHRINE 0.25 % RECTAL S* 1 Suppository by RECTAL route * HYDROCORTISONE 2.5 % TOPICAL * 1 application by RECTAL route * TRIAMCINOLONE ACETONIDE 0.1 %* Apply 1 application to affect * ALBUTEROL SULFATE HFA 90 MCG/* Inhale 2 Puffs as instructed * ALBUTEROL SULFATE 2.5 MG/3 ML* Use 3 mL via nebulizer three * TRIAMCINOLONE ACETONIDE TOPIC* Apply to affected area. COMPOUNDED PRESCRIPTION Nebulizer for home use. Diagn* COMPOUNDED PRESCRIPTION BLOOD PRESSURE CUFF FOR HOME * [id number]-NCC C-M* Take 1 capsule by mouth once * GUAIFENESIN ORAL Take by mouth. Problem List As Of Date 06/10/2019 Noted Resolved Coronary atherosclerosis [I25.10] More... COPD (chronic obstructive pulmonary disease) (H* More... Unspecified Asthma [J45.909] More... Nonspecific abnormal results of liver function *01/13/2007 0 11/11/2011 CONSTIPATION NOS [K59.00] 01/13/2007 Mixed hyperlipidemia [E78.2] 04/09/2007 More... More... Former smoker [Z87.891] 11/16/2009 Spinal stenosis [M48.00] 11/16/2009 More... More... More... Insomnia [G47.00] 11/11/2011 More... Hearing loss [H91.90] 09/07/2014 Cerebrovascular accident (CVA) (HCC) [I63.9] 12/12/2015 Subdural hematoma (HCC) [S06.5X9A] 12/16/2016 Depression [F32.9] 05/01/2017 Uses hearing aid [Z97.4] 10/31/2017 More... Vascular dementia, uncomplicated [F01.50] 12/05/2017 More... Fall with injury [W19.XXXA] 01/01/2018 More... External otitis of right ear [H60.91] 01/01/2018 More... HTN (hypertension) [I10] 01/01/2018 More... DJD (degenerative joint disease) [M19.90] 01/01/2018 More... Chronic pain syndrome [G89.4] 01/01/2018 More... Encounter Status:Closed by NINA CORTEZ LPN on 06/14/19 obsolete on 2019-05 OBSOLETE Refill (INTMWS) Normal 06-08-2019 [facility] ANEL ESPINO ([id number]) 1935 [facility] Time Provider Department ([id number]) 06/08/19 SRIRAM VALDEZ INTMWS During your visit today, we recorded the following informati on about you: Marsha Oliveira 06/08/2019 12:20 PM Signed Patient has been identified by name and date of : Yes Last office visit in this department: 05/21/2019 RX INSTRUCTIONS: Patient aware RX will be sent to pharmacy. No need to notify patient. Patient phones requesting refills as follows: Pending Prescriptions Disp Refills OXYCODONE-ACETAMINOPHEN 10 MG-325 MG TABLET 60 tablet 0 Sig: Take 1 tablet by mouth twice daily as needed for up to 30 days. as needed DARELL Class: C-II JOS: No Please review and advise. Marsha Tucker LPN 06/08/2019 1:40 PM Signed Last office visit: 05/21/19 F/u scheduled: 06/21/19 Keli Mark 06/09/2019 12:37 PM Signed Patient called in and requested that she be notified when rx is approved. Thank you. Sriram Valdez MD 06/09/2019 1:20 PM Signed She should have had refills for Apr and May to last till her June appointment. RX should not be due to fill till 06/21 PDMP does not have any entries. Medication dispenseed Apr but not May per Medication Dispe nse History. Did she get May RX? Eileen Gunn LPN 06/09/2019 1:25 PM Signed Patient has been identified by name and date of : Yes Patient phones for refill(s): Pending Prescriptions Disp Refills OXYCODONE-ACETAMINOPHEN 10 MG-325 MG TABLET 60 tablet 0 Sig: Take 1 tablet by mouth twice daily as needed for up to 30 days. as needed Do not start before June 22, 2019. DARELL Class: C-II JOS: No Date of last office visit in primary care: 05/21/2019 2 month follow-up scheduled: 06/21/2019 Eileen Valdez MD 06/09/2019 3:08 PM Signed Was my note below addressed? Nina Court HCAVES 06/09/2019 3:18 PM Signed Called pt and she did not fill 05/23/19 rx. Pharmacy says it's past 14 days. New rx is needed. Sriram Valdez MD 06/09/2019 4:52 PM Signed Will just send this RX Will see how long it lasts then plan on making the following prescriptions for 30 day supplies and 1 refill Noted that she has the June appointment with Irvin Batista with me. She will need to do at Virtual or FaceTime appointment to be compliant with opiate prescribing policies during COVID19 preca utions--phone call visits not adequate. Okay if the June one cannot b e virtual/videa appointment yet but by August, if we are not able to get back to F2F appointments, wi ll need to be Virtual Visit or Facetime. The following approved medic ation requests have been transmitted electronically. Signed Prescriptions Disp Refills oxyCODONE-acetaminophen (PERCOCET) 10-325 mg tablet 60 table t 0 Sig: Take 1 tablet by mouth twice daily as needed for up to 30 days. as needed DARELL Class: C-II JOS: No Authorizing Provider: SRIRAM VALDEZ MD Janice Curren TREE SURGEON 06/09/2019 4:59 PM Signed Pt notified rx is at the pharmacy. Allergies As of Date: 06/08/2019 Noted Allergy Reaction AMBIEN (ZOLPIDEM) 12/28/2012 14 - Other: See Comments Comments: Hangover effect/body aches GABAPENTIN 07/18/2014 14 - Other: See Comments Comments: states that made me crazy; tremor and made her f orgetful SULFA (SULFONAMIDE ANTIBIOTICS) 08/07/2006 4 - Hives Date Reviewed: 05/21/2019 Reviewed by: Eli Hernández LPN - Fully Assessed Reason for Visit: Refill Request [94] Visit Diagnoses:Leg pain, right [M79.604] Comment:Chronic pain plus now has large hematome on morelos from fall; gradually resolving Pain in the muscles, right leg [M79.10] Spinal stenosis of lumbar region, unspecified whether neurogenic claudication present [M48.061] Comment:Percocet more effective than Hydrocodone. Will resume at BID. Order(s):oxyCODONE-acetaminophen (PERCOCET) 10-325 mg tabletTake 1 tablet by mouth twice daily as needed for up to 30 days. as neededDisp : 60 tabletRfl: 0 Prescriptions as of 06/08/2019 Sig: OXYCODONE-ACETAMINOPHEN 10 MG* Take 1 tablet by mouth twice * FLUTICASONE PROPIONATE 50 MCG* Use 1-2 Sprays in each nostri * LEVOCETIRIZINE 5 MG TABLET Take 1 tablet by mouth once d* IPRATROPIUM BROMIDE 42 MCG (0* Use 2 Sprays in the nose four * DONEPEZIL 5 MG TABLET Take 1 tablet by mouth daily * OXYCODONE-ACETAMINOPHEN 10 MG* Take 1 tablet by mouth twice * CLOPIDOGREL 75 MG TABLET Take 1 tablet by mouth once d* HYDRALAZINE 10 MG TABLET Take 1 tablet by mouth four t* ATORVASTATIN 10 MG TABLET Take 1 tablet by mouth once d* CARVEDILOL 3.125 MG TABLET Take 1 tablet by mouth twice * POLYETHYLENE GLYCOL 3350 17 G* Take one (1) bottle, as instr * BISACODYL 5 MG TABLET,DELAYED* Take two (2) tablets, at the * PHENYLEPHRINE 0.25 % RECTAL S* 1 Suppository by RECTAL route * HYDROCORTISONE 2.5 % TOPICAL * 1 application by RECTAL route * TRIAMCINOLONE ACETONIDE 0.1 %* Apply 1 application to affect * ALBUTEROL SULFATE HFA 90 MCG/* Inhale 2 Puffs as instructed * ALBUTEROL SULFATE 2.5 MG/3 ML* Use 3 mL via nebulizer three * TRIAMCINOLONE ACETONIDE TOPIC* Apply to affected area. COMPOUNDED PRESCRIPTION Nebulizer for home use. Diagn* COMPOUNDED PRESCRIPTION BLOOD PRESSURE CUFF FOR HOME * LCEBFKSMFOH-LUBTGKRSY-IEN C-M* Take 1 capsule by mouth once * GUAIFENESIN ORAL Take by mouth. Medication notes this encounter OXYCODONE-ACETAMINOPHEN 10 MG-325 MG TABLET >> Sriram Valdez MD 06/09/2019 4:41 PM Did not fill within 2 weeks from due date Problem List As Of Date 06/08/2019 Noted Resolved Coronary atherosclerosis [I25.10] More... COPD (chronic obstructive pulmonary disease) (H* More... Unspecified Asthma [J45.909] More... Nonspecific abnormal results of liver function *01/13/2007 0 11/11/2011 CONSTIPATION NOS [K59.00] 01/13/2007 Mixed hyperlipidemia [E78.2] 04/09/2007 More... More... Former smoker [Z87.891] 11/16/2009 Spinal stenosis [M48.00] 11/16/2009 More... More... More... Insomnia [G47.00] 11/11/2011 More... Hearing loss [H91.90] 09/07/2014 Cerebrovascular accident (CVA) (HCC) [I63.9] 12/12/2015 Subdural hematoma (HCC) [S06.5X9A] 12/16/2016 Depression [F32.9] 05/01/2017 Uses hearing aid [Z97.4] 10/31/2017 More... Vascular dementia, uncomplicated [F01.50] 12/05/2017 More... Fall with injury [W19.XXXA] 01/01/2018 More... External otitis of right ear [H60.91] 01/01/2018 More... HTN (hypertension) [I10] 01/01/2018 More... DJD (degenerative joint disease) [M19.90] 01/01/2018 More... Chronic pain syndrome [G89.4] 01/01/2018 More... Prescriptions ordered this encounter Disp Refills Start End OXYCODONE-ACETAMINOPHEN 10 MG-325 MG* 60 t* 0 06/09/2019 Route: ORAL Sig: Take 1 tablet by mouth twice daily as needed for up to 30 days. as needed Medications Discontinued During This Encounter oxyCODONE-acetaminophen (PERCOCET) 1* 60 t* 0 05/23/20192019 Route: ORAL Sig: Take 1 tablet by mouth twice daily as needed for up to 30 days. as needed Do not start before May 23, 2019. Disc: Reason for discontinue is not on file. Encounter Status:Closed by NINA CORTEZ LPN on 06/09/19 cnpn on 2019-06-07 CNPN Telephone (INTMWS) Normal 06-07-2019 Clifford ANEL Mcelroy ([id number]) 1935 F [place] Date Time Provider Department ([id number]) 06/07/19 IRVIN MONTERO (AUTOMOTIVE SERVICE DIRECTOR) INTMWS During your visit today, we recorded the following informati on about you: Eli Edgar CHAVES 06/07/2019 11:38 AM Signed When contacting patient nicole rding her appointment, she stated that she was seen by Irvin on 05/20 for nasal drainage and she continues to have that problem. Wanted to know if there was something else she could try. Pl ease advise. Irvin Montero APRN.AUTOMOTIVE SERVICE DIRECTOR 06/07/2019 3:06 PM Signed Can add fluticasone nasal spray 1 or 2 s prays daily in addition to her current medication (Atrovent and Xyzal) to see if this helps Leida Ahmadi [facility] 06/07/2019 3:53 PM Signed Left detailed message on secure [employer] with all informati on. Leida Ahmadi [facility] June 07, 2019 3:53 PM Allergies As of Date: 06/07/2019 Noted Allergy Reaction AMBIEN (ZOLPIDEM) 12/28/2012 14 - Other: See Comments Comments: Hangover effect/body aches GABAPENTIN 07/18/2014 14 - Other: See Comments Comments: states that made me crazy; tremor and made her f orgetful SULFA (SULFONAMIDE ANTIBIOTICS) 08/07/2006 4 - Hives Date Reviewed: 05/21/2019 Reviewed by: Eli Hernández LPN - Fully Assessed Reason for Visit: Follow Up [171] Order(s):fluticasone (FLONASE) 50 mcg/actuation nasal sprayUse 1-2 Sprays in each nostril once daily. Rinse mouth after use. For nasal drainageDisp: 1 BottleRfl: 3 Prescriptions as of 06/07/2019 Sig: FLUTICASONE PROPIONATE 50 MCG* Use 1-2 Sprays in each nostri * LEVOCETIRIZINE 5 MG TABLET Take 1 tablet by mouth once d* IPRATROPIUM BROMIDE 42 MCG (0* Use 2 Sprays in the nose four * DONEPEZIL 5 MG TABLET Take 1 tablet by mouth daily * OXYCODONE-ACETAMINOPHEN 10 MG* Take 1 tablet by mouth twice * OXYCODONE-ACETAMINOPHEN 10 MG* Take 1 tablet by mouth twice * CLOPIDOGREL 75 MG TABLET Take 1 tablet by mouth once d* HYDRALAZINE 10 MG TABLET Take 1 tablet by mouth four t* ATORVASTATIN 10 MG TABLET Take 1 tablet by mouth once d* CARVEDILOL 3.125 MG TABLET Take 1 tablet by mouth twice * POLYETHYLENE GLYCOL 3350 17 G* Take one (1) bottle, as instr * BISACODYL 5 MG TABLET,DELAYED* Take two (2) tablets, at the * PHENYLEPHRINE 0.25 % RECTAL S* 1 Suppository by RECTAL route * HYDROCORTISONE 2.5 % TOPICAL * 1 application by RECTAL route * TRIAMCINOLONE ACETONIDE 0.1 %* Apply 1 application to affect * ALBUTEROL SULFATE HFA 90 MCG/* Inhale 2 Puffs as instructed * ALBUTEROL SULFATE 2.5 MG/3 ML* Use 3 mL via nebulizer three * TRIAMCINOLONE ACETONIDE TOPIC* Apply to affected area. COMPOUNDED PRESCRIPTION Nebulizer for home use. Diagn* COMPOUNDED PRESCRIPTION BLOOD PRESSURE CUFF FOR HOME * BOLAXJHCSKB-FGXDLLRVM-VIR C-M* Take 1 capsule by mouth once * GUAIFENESIN ORAL Take by mouth. Problem List As Of Date 06/07/2019 Noted Resolved Coronary atherosclerosis [I25.10] More... COPD (chronic obstructive pulmonary disease) (H* More... Unspecified Asthma [J45.909] More... Nonspecific abnormal results of liver function *01/13/2007 0 11/11/2011 CONSTIPATION NOS [K59.00] 01/13/2007 Mixed hyperlipidemia [E78.2] 04/09/2007 More... More... Former smoker [Z87.891] 11/16/2009 Spinal stenosis [M48.00] 11/16/2009 More... More... More... Insomnia [G47.00] 11/11/2011 More... Hearing loss [H91.90] 09/07/2014 Cerebrovascular accident (CVA) (HCC) [I63.9] 12/12/2015 Subdural hematoma (HCC) [S06.5X9A] 12/16/2016 Depression [F32.9] 05/01/2017 Uses hearing aid [Z97.4] 10/31/2017 More... Vascular dementia, uncomplicated [F01.50] 12/05/2017 More... Fall with injury [W19.XXXA] 01/01/2018 More... External otitis of right ear [H60.91] 01/01/2018 More... HTN (hypertension) [I10] 01/01/2018 More... DJD (degenerative joint disease) [M19.90] 01/01/2018 More... Chronic pain syndrome [G89.4] 01/01/2018 More... Prescriptions ordered this encounter Disp Refills Start End FLUTICASONE PROPIONATE 50 MCG/ACTUAT* 1 Bernardo* 3 06/07/2019 Route: EACH NOSTRIL Sig: Use 1-2 Sprays in each nostril once daily. Rinse mouth after use. For nasal drainage Encounter Status:Closed by LEIDA AHMADI CMA on 06/07/19 progress on 2019-05 PROGRESS HNO ID: [id number] Normal 05-21-[address] [facility] Author: Irvin (Billet Assembler) [facility] ([id number]) Service: ? Author Type: Nurse Specialist Type: Progress Notes Filed: 05/21/2019 2:13 PM Note Text: SUBJECTIVE: Anel Espino is a 83 year old female. SPIROMETRY due on 11/24/1953 SHINGRIX VACCINE(2 of 3) due on 02/24/2012 INFLUENZA(1) due on 11/15/2018 HPI Presents today with report of runny nose and night sweating. Anel Espino is a 83 year old female who presents with co mplaint of nasal drainage, does not feel much improved with nasal spray . No report of ear pain, headache, sore throat or fever. Notes sweating at night, states not currently taking pain me dications. Notes 1 loose stool daily after eating morning meal, goes r ight through her. No abdominal pain, Notes a decreased appetite, no nause a or vomiting, no reported constipation, blood in stool black or tarry stool, notes occasional mucus, no recent antibiotics or hospitaliza tion is reported. Review of Systems Constitutional: Negative. HENT: Positive for rhinorrhea. Respiratory: Negative. Cardiovascular: Negative. Gastrointestinal: Positive for diarrhea (1 loose stool daily ). Objective BP 102/72 (BP Site: Left Arm, BP Position: Sitting, BP Cuff Size: Regular Adult) Pulse 72 Temp 36.8 ?C (98.2 ?F) Resp 16 Wt 63 kg (139 lb) BMI 21.13 kg/m? Physical Exam Constitutional: General: She is not in acute distress. Appearance: She is not ill-appearing or diaphoretic. HENT: Head: Normocephalic and atraumatic. Right Ear: Hearing normal. Left Ear: Hearing normal. Nose: Mucosal edema and rhinorrhea present. Right Sinus: No maxillary sinus tenderness or frontal sinus tenderness. Left Sinus: No maxillary sinus tenderness or frontal sinus t enderness. Mouth/Throat: Lips: [place]. Mouth: Mucous membranes are moist. Pharynx: Oropharynx is clear. Tonsils: No tonsillar exudate. Cardiovascular: Rate and Rhythm: Normal rate and regular rhythm. Pulmonary: Effort: Pulmonary effort is normal. Breath sounds: Normal breath sounds. Skin: General: Skin is warm and dry. Neurological: Mental Status: She is alert. Component Latest Ref Rng AND Units 02/01/2019 04/23/2019 Protein, Total 6.3 - 8.0 g/dL 6.1 (L) 6.8 Albumin 3.9 - 4.9 g/dL 4.1 4.5 Calcium 8.5 - 10.2 mg/dL 9.3 9.9 Bilirubin, Total 0.2 - 1.3 mg/dL 0.3 0.7 Alkaline Phosphatase 34 - 123 U/L 73 115 AST 13 - 35 U/L 23 234 (H) Glucose 74 - 99 mg/dL 96 109 (H) BUN 7 - 21 mg/dL 17 26 (H) Creatinine 0.58 - 0.96 mg/dL 0.94 1.07 (H) Sodium 136 - 144 mmol/L 141 142 Potassium 3.7 - 5.1 mmol/L 4.7 4.3 Chloride 97 - 105 mmol/L 102 104 CO2 22 - 30 mmol/L 30 25 Anion Gap 9 - 18 mmol/L 9 13 ALT 7 - 38 U/L 12 112 (H) eGFR- >60 60 eGFR-All Other Races . 57 49 WBC 3.70 - 11.00 k/uL 6.54 9.33 RBC 3.90 - 5.20 m/uL 4.55 4.85 Hemoglobin 11.5 - 15.5 g/dL 12.1 13.3 Hematocrit 36.0 - 46.0 % 41.2 44.0 MCV 80.0 - 100.0 fL 90.5 90.7 MCH 26.0 - 34.0 pG 26.6 27.4 MCHC 30.5 - 36.0 g/dL 29.4 (L) 30.2 (L) RDW-CV 11.5 - 15.0 % 13.5 13.7 Platelet Count 150 - 400 k/uL 302 286 MPV 9.0 - 12.7 fL 10.5 10.7 Absolute nRBC <0.01 k/uL <0.01 <0.01 Total Cholesterol, Nonfasting <200 mg/dL 207 (H) Triglycerides, Nonfasting <150 mg/dL 82 HDL Cholesterol, Nonfasting >39 mg/dL 80 LDL Cholesterol, Nonfasting <100 mg/dL 111 (H) Non HDL Cholesterol, Nonfasting <130 mg/dL 127 VLDL Cholesterol, Nonfasting <30 mg/dL 16 Total Chol/HDL Ratio, Nonfasting <5.10 mg/dL 2.59 LDL/HDL Ratio, Nonfasting <2.54 mg/dL 1.39 TSH 0.270 - 4.200 uU/mL 1.560 ALLERGIES Allergen Reactions - Ambien [Zolpidem] Other: See Comments Hangover effect/body aches - Gabapentin Other: See Comments states that made me crazy; tremor and made her forgetful - Sulfa (Sulfonamide * Hives ipratropium bromide (ATROVENT) 42 mcg (0.06 %) nasal spray, Use 2 Sprays in the nose four times daily as needed. donepezil (ARICEPT) 5 mg tablet, Take 1 tablet by mouth moon y at bedtime. oxyCODONE-acetaminophen (PERCOCET) 10-325 mg tablet, Take 1 tablet by mouth twice daily as needed for up to 30 days. as needed [START ON 05/23/2019] oxyCODONE-acetaminophen (PERCOCET) 10-32 5 mg tablet, Take 1 tablet by mouth twice daily as needed for up to 30 da ys. as needed Do not start before May 23, 2019. clopidogrel (PLAVIX) 75 mg tablet, Take 1 tablet by mouth on ce daily. hydrALAZINE (APRESOLINE) 10 mg tablet, Take 1 tablet by mout h four times daily as needed. For systolic blood pressure over 159 atorvastatin (LIPITOR) 10 mg tablet, Take 1 tablet by mouth once daily. carvedilol (COREG) 3.125 mg tablet, Take 1 tablet by mouth t wice daily. polyethylene glycol 3350 (MIRALAX, GLYCOLAX) 17 gram/dose po wder, Take one (1) bottle, as instructed for colonoscopy prep. bisacodyl EC (DULCOLAX, BISACODYL,) 5 mg EC tablet, Take two (2) tablets, at the designated times, as explained on the instruction she et provided. PHENYLephrine 0.25 % suppository, 1 Suppository by RECTAL ro ford twice daily. hydrocortisone (ANUSOL-HC) 2.5 % rectal cream, 1 application by RECTAL route twice daily as needed. triamcinolone acetonide (KENALOG) 0.1 % cream, Apply 1 appli cation to affected area twice daily as needed. For eczematous rash on extremities and torso albuterol HFA (PROVENTIL HFA, VENTOLIN HFA) 90 mcg/actuation inhaler, Inhale 2 Puffs as instructed every 6 hours as needed. albuterol (PROVENTIL) 2.5 mg /3 mL (0.083 %) nebulizer solut ion, Use 3 mL via nebulizer three times daily as needed. OVER 5-15 MINUTES . FOR WHEEZING AND SHORTNESS OF BREATH. TRIAMCINOLONE ACETONIDE TOPICAL, Apply to affected area. COMPOUNDED PRESCRIPTION, Nebulizer for home use. Diagnosis: Emphysema, COPD exacerbation. Lifetime use. Blood Pressure Cuff - Home Use, BLOOD PRESSURE CUFF FOR HOME USE. DX: LABILE BLOOD PRESSURE R09.89 Ozmategnett-Mfhkyfzub-Whj C-Mn (GLUCOSAMINE CHONDROITIN MAXS TR) 500-400 mg cap, Take 1 capsule by mouth once daily. GUAIFENESIN ORAL, Take by mouth. Levocetirizine (XYZAL) 5 mg tablet, Take 1 tablet by mouth o nce daily. for nasal drainage PAST MEDICAL HISTORY Diagnosis Date - ABNORMAL LIVER FUNCTION STUDY 01/13/2007 - Anemia, unspecified 01/14/2007 - Basal cell carcinoma 09/25/2011 Superior umbilicus and left posterior calf, Dr Sommer lomb[place].Will follow annually every year, Due September 2012. 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 Dr. Jimenez. Had s bijann Dr. Huff - Unspecified asthma(493.90) - Unspecified constipation - Uses hearing aid 10/31/2017 forgot to wear today Social History Tobacco Use - Smoking status: Former Smoker Packs/day: 1.00 Years: 25.00 Pack years: 25.00 Types: Cigarettes Start date: 12/04/2016 Last attempt to quit: 11/14/2017 Years since quittin.5 - Smokeless tobacco: Never Used - Tobacco comment: Down to half PPD; quit after became ill a nd fell Substance Use Topics - Alcohol use: Yes Alcohol/week: 17.5 standard drinks Types: 7 Glasses of Wine (5oz) per week - Drug use: No ASSESSMENT/PLAN: 1. Nasal drainage - ICD9: 478.19, ICD10: J00 (primary diagno sis) - Will add xyzal to nasal spray once daily to see if this he lps with nasal draiange 2. Loose stools - ICD9: 787.7, ICD10: R19.5 She reports present for 2 weeks, it's possible there is an e nteric pathogen. For now recommend mild diet, increase foods such as rice pot atoes and bread and peanut butter which can slow GI transit time - ENTERIC BACTERIAL PANEL BY PCR Irvin Montero APRN.CNS cnov on 2019-05-21 CNOV Office Visit (INTMWS) Normal 05-21-[address] [place] [address] [facility] ANEL ESPINO ([id number]) 1935 [facility] Time Provider Department ([id number]) 05/21/19 1:40 PM IRVIN MONTERO (AUTOMOTIVE SERVICE DIRECTOR) INTMWS During your visit today, we recorded the following informati on about you: Temperature Pulse Respiration Blood pressure 98.2 degrees 72/minute 16/minute 102/72 Weight 63 kg Irvin Montero APRN.CNS 05/21/2019 2:13 PM Signed SUBJECTIVE: Anel Espino is a 83 year old female. SPIROMETRY due on 11/24/1953 SHINGRIX VACCINE(2 of 3) due on 02/24/2012 INFLUENZA(1) due on 11/15/2018 HPI Presents today with report of runny nose and night sweating. Anel Espino is a 83 year old female who presents w ith complaint of nasal drainage, does not feel much improved wi th nasal spray. No report of ear pain, headache, sore throat or fever. Notes sweating at night, states not currently taking pain me dications. Notes 1 loose stool daily after eating morning m eal, goes right through her. No abdominal pain, Notes a decreased appetite, no nausea or vomiting, no reported constipation, blood in stool black or tarry s tool, notes occasional mucus, no recent antibiotics or hospitalization is reported. Review of Systems Constitutional: Negative. HENT: Positive for rhinorrhea. Respiratory: Negative. Cardiovascular: Negative. Gastrointestinal: Positive for diarrhea (1 loose stool daily ). Objective BP 102/72 (BP Site: Left Arm, BP Position: Sitting, BP Cuff Size: Regular Adult) Pulse 72 Temp 36.8 ?C (98.2 ?F) Resp 16 Wt 63 kg (139 lb) BMI 21.13 kg/m? Physical Exam Constitutional: General: She is not in acute distress. Appearance: She is not ill-appearing or diaphoretic. HENT: Head: Normocephalic and atraumatic. Right Ear: Hearing normal. Left Ear: Hearing normal. Nose: Mucosal edema and rhinorrhea present. Right Sinus: No maxillary sinus tenderness or frontal sinus tenderness. Left Sinus: No maxillary sinus tenderness or frontal sinus t enderness. Mouth/Throat: Lips: [place]. Mouth: Mucous membranes are moist. Pharynx: Oropharynx is clear. Tonsils: No tonsillar exudate. Cardiovascular: Rate and Rhythm: Normal rate and regular rhythm. Pulmonary: Effort: Pulmonary effort is normal. Breath sounds: Normal breath sounds. Skin: General: Skin is warm and dry. Neurological: Mental Status: She is alert. Component Latest Ref Rng AND Units 02/01/2019 04/23/2019 Protein, Total 6.3 - 8.0 g/dL 6.1 (L) 6.8 Albumin 3.9 - 4.9 g/dL 4.1 4.5 Calcium 8.5 - 10.2 mg/dL 9.3 9.9 Bilirubin, Total 0.2 - 1.3 mg/dL 0.3 0.7 Alkaline Phosphatase 34 - 123 U/L 73 115 AST 13 - 35 U/L 23 234 (H) Glucose 74 - 99 mg/dL 96 109 (H) BUN 7 - 21 mg/dL 17 26 (H) Creatinine 0.58 - 0.96 mg/dL 0.94 1.07 (H) Sodium 136 - 144 mmol/L 141 142 Potassium 3.7 - 5.1 mmol/L 4.7 4.3 Chloride 97 - 105 mmol/L 102 104 CO2 22 - 30 mmol/L 30 25 Anion Gap 9 - 18 mmol/L 9 13 ALT 7 - 38 U/L 12 112 (H) eGFR- >60 60 eGFR-All Other Races . 57 49 WBC 3.70 - 11.00 k/uL 6.54 9.33 RBC 3.90 - 5.20 m/uL 4.55 4.85 Hemoglobin 11.5 - 15.5 g/dL 12.1 13.3 Hematocrit 36.0 - 46.0 % 41.2 44.0 MCV 80.0 - 100.0 fL 90.5 90.7 MCH 26.0 - 34.0 pG 26.6 27.4 MCHC 30.5 - 36.0 g/dL 29.4 (L) 30.2 (L) RDW-CV 11.5 - 15.0 % 13.5 13.7 Platelet Count 150 - 400 k/uL 302 286 MPV 9.0 - 12.7 fL 10.5 10.7 Absolute nRBC <0.01 k/uL <0.01 <0.01 Total Cholesterol, Nonfasting <200 mg/dL 207 (H) Triglycerides, Nonfasting <150 mg/dL 82 HDL Cholesterol, Nonfasting >39 mg/dL 80 LDL Cholesterol, Nonfasting <100 mg/dL 111 (H) Non HDL Cholesterol, Nonfasting <130 mg/dL 127 VLDL Cholesterol, Nonfasting <30 mg/dL 16 Total Chol/HDL Ratio, Nonfasting <5.10 mg/dL 2.59 LDL/HDL Ratio, Nonfasting <2.54 mg/dL 1.39 TSH 0.270 - 4.200 uU/mL 1.560 ALLERGIES Allergen Reactions - Ambien [Zolpidem] Other: See Comments Hangover effect/body aches - Gabapentin Other: See Comments states that made me crazy; tremor and made her forgetful - Sulfa (Sulfonamide * Hives ipratropium bromide (ATROVEN T) 42 mcg (0.06 %) nasal spray, Use 2 Sprays in the nose four times daily as needed. donepezil (ARICEPT) 5 mg tablet, Take 1 tablet by mouth moon y at bedtime. oxyCODONE-acetaminophen (PERCOCET) 10-325 mg tablet, Take 1 tablet by mouth twice daily as needed for up to 30 days. as needed [START ON 05/23/2019] oxyCODON E-acetaminophen (PERCOCET) 10-325 mg tablet, Take 1 tablet by mouth twice daily as needed for up to 30 days. as needed Do not start before May 23, 2019. clopidogrel (PLAVIX) 75 mg tablet, Take 1 tablet by mouth on ce daily. hydrALAZINE (APRESOLINE) 10 mg tablet, T debi 1 tablet by mouth four times daily as needed. For systolic blood pressure over 159 atorvastatin (LIPITOR) 10 mg tablet, Take 1 tablet by mouth once daily. carvedilol (COREG) 3.125 mg tablet, Take 1 tablet by mouth t wice daily. polyethylene glycol 3350 (MIRALAX, GLYCO LAX) 17 gram/dose powder, Take one (1) bottle, as instructed for colonoscopy prep. bisacodyl EC (DULCOLAX, BISACODYL,) 5 mg EC tablet, Ta ke two (2) tablets, at the designated times, as explained on the instruction sheet provided. PHENYLephrine 0.25 % suppository, 1 Suppository by REC LUIS route twice daily. hydrocortisone (ANUSOL-HC) 2.5 % rectal cream, 1 appli cation by RECTAL route twice daily as needed. triamcinolone acetonide (KENALOG) 0.1 % cream, Apply 1 application to affected area twice daily as needed. For eczematous rash on extremiti es and torso albuterol HFA (PROVENTIL HFA, VENTOLIN H FA) 90 mcg/actuation inhaler, Inhale 2 Puffs as instructed every 6 hours as needed. albuterol (PROVENTIL) 2.5 mg /3 mL (0.083 %) neb ulizer solution, Use 3 mL via nebulizer three times daily as needed. OVER 5-15 MINUTES. FO R WHEEZING AND SHORTNESS OF BREATH. TRIAMCINOLONE ACETONIDE TOPICAL, Apply to affected area. COMPOUNDED PRESCRIPTION, Nebulizer for home use. Diagnosis : Emphysema, COPD exacerbation. Lifetime use. Blood Pressure Cuff - Home Use, BLOOD PRESSURE CUFF FO R HOME USE. DX: LABILE BLOOD PRESSURE R09.89 Mgbodpkocgh-Mhtahfizs-Xhg C- Mn (GLUCOSAMINE CHONDROITIN MAXSTR) 500-400 mg cap, Take 1 capsule by mouth once daily. GUAIFENESIN ORAL, Take by mouth. Levocetirizine (XYZAL) 5 mg tablet, Take 1 tablet by mouth o nce daily. for nasal drainage PAST MEDICAL HISTORY Diagnosis Date - ABNORMAL LIVER FUNCTION STUDY 01/13/2007 - Anemia, unspecified 01/14/2007 - Basal cell carcinoma 09/25/2011 Superior umbilicus and left posterior calf, Dr Sommer gregg [place].Will follow annually every year, Due September 2012. 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 Dr. Jimenez. Had s een Dr. Huff - Unspecified asthma(493.90) - Unspecified constipation - Uses hearing aid 10/31/2017 forgot to wear today Social History Tobacco Use - Smoking status: Former Smoker Packs/day: 1.00 Years: 25.00 Pack years: 25.00 Types: Cigarettes Start date: 12/04/2016 Last attempt to quit: 11/14/2017 Years since quittin.5 - Smokeless tobacco: Never Used - Tobacco comment: Down to half PPD; quit after became ill a nd fell Substance Use Topics - Alcohol use: Yes Alcohol/week: 17.5 standard drinks Types: 7 Glasses of Wine (5oz) per week - Drug use: No ASSESSMENT/PLAN: 1. Nasal drainage - ICD9: 478.19, ICD10: J00 (primary diagno sis) - Will add xyzal to nasal spray once daily to see if this he lps with nasal draiange 2. Loose stools - ICD9: 787.7, ICD10: R19.5 She reports present for 2 weeks, it's possible there i s an enteric pathogen. For now recommend mild diet, increase foods such as rice p otatoes and bread and peanut butter which can slow GI transit time - ENTERIC BACTERIAL PANEL BY PCR Irvin Montero APRN.AUTOMOTIVE SERVICE DIRECTOR Referring Provider: SELF [[id number]] Allergies As of Date: 05/21/2019 Noted Allergy Reaction AMBIEN (ZOLPIDEM) 12/28/2012 14 - Other: See Comments Comments: Hangover effect/body aches GABAPENTIN 07/18/2014 14 - Other: See Comments Comments: states that made me crazy; tremor and made her f orgetful SULFA (SULFONAMIDE ANTIBIOTICS) 08/07/2006 4 - Hives Date Reviewed: 05/21/2019 Reviewed by: Eli Hernández LPN - Fully Assessed Reason for Visit: Rhinitis [369] Perspiration [81] Primary Visit Diagnosis:Nasal drainage [J00] Other Visit Diagnosis:Loose stools [R19.5] Order(s):[facility]EL [facility] Order #: [id number] FUTURE Levocetirizine (XYZAL) 5 mg tabletTake 1 tablet by mouth onc e daily. for nasal drainageDisp: 30 tabletRfl: 5 Prescriptions as of 05/21/2019 Sig: IPRATROPIUM BROMIDE 42 MCG (0* Use 2 Sprays in the nose four * DONEPEZIL 5 MG TABLET Take 1 tablet by mouth daily * OXYCODONE-ACETAMINOPHEN 10 MG* Take 1 tablet by mouth twice * OXYCODONE-ACETAMINOPHEN 10 MG* Take 1 tablet by mouth twice * CLOPIDOGREL 75 MG TABLET Take 1 tablet by mouth once d* HYDRALAZINE 10 MG TABLET Take 1 tablet by mouth four t* ATORVASTATIN 10 MG TABLET Take 1 tablet by mouth once d* CARVEDILOL 3.125 MG TABLET Take 1 tablet by mouth twice * POLYETHYLENE GLYCOL 3350 17 G* Take one (1) bottle, as instr * BISACODYL 5 MG TABLET,DELAYED* Take two (2) tablets, at the * PHENYLEPHRINE 0.25 % RECTAL S* 1 Suppository by RECTAL route * HYDROCORTISONE 2.5 % TOPICAL * 1 application by RECTAL route * TRIAMCINOLONE ACETONIDE 0.1 %* Apply 1 application to affect * ALBUTEROL SULFATE HFA 90 MCG/* Inhale 2 Puffs as instructed * ALBUTEROL SULFATE 2.5 MG/3 ML* Use 3 mL via nebulizer three * TRIAMCINOLONE ACETONIDE TOPIC* Apply to affected area. COMPOUNDED PRESCRIPTION Nebulizer for home use. Diagn* COMPOUNDED PRESCRIPTION BLOOD PRESSURE CUFF FOR HOME * WSJOEQYKVVN-EEJGQNHOD-ALK C-M* Take 1 capsule by mouth once * GUAIFENESIN ORAL Take by mouth. LEVOCETIRIZINE 5 MG TABLET Take 1 tablet by mouth once d* Problem List As Of Date 05/21/2019 Noted Resolved Coronary atherosclerosis [I25.10] More... COPD (chronic obstructive pulmonary disease) (H* More... Unspecified Asthma [J45.909] More... Nonspecific abnormal results of liver function *01/13/2007 0 11/11/2011 CONSTIPATION NOS [K59.00] 01/13/2007 Mixed hyperlipidemia [E78.2] 04/09/2007 More... More... Former smoker [Z87.891] 11/16/2009 Spinal stenosis [M48.00] 11/16/2009 More... More... More... Insomnia [G47.00] 11/11/2011 More... Hearing loss [H91.90] 09/07/2014 Cerebrovascular accident (CVA) (HCC) [I63.9] 12/12/2015 Subdural hematoma (HCC) [S06.5X9A] 12/16/2016 Depression [F32.9] 05/01/2017 Uses hearing aid [Z97.4] 10/31/2017 More... Vascular dementia, uncomplicated [F01.50] 12/05/2017 More... Fall with injury [W19.XXXA] 01/01/2018 More... External otitis of right ear [H60.91] 01/01/2018 More... HTN (hypertension) [I10] 01/01/2018 More... DJD (degenerative joint disease) [M19.90] 01/01/2018 More... Chronic pain syndrome [G89.4] 01/01/2018 More... Prescriptions ordered this encounter Disp Refills Start End LORATADINE 10 MG TABLET 30 t* 11 05/21/2019 05/21/2019 Route: ORAL Sig: Take 1 tablet by mouth once daily. LEVOCETIRIZINE 5 MG TABLET 30 t* 5 05/21/2019 Route: ORAL Sig: Take 1 tablet by mouth once daily. for nasal drainage Medications Discontinued During This Encounter loratadine (CLARITIN) 10 mg tablet 30 t* 11 05/21/2019 0 Route: ORAL Sig: Take 1 tablet by mouth once daily. Disc: Reason for discontinue is not on file. Encounter Status:Closed by IRVIN BAL on 05/21/19 progress on 2019-04 PROGRESS HNO ID: [id number] Normal 04-23-[address] [facility] Author: Sriram Valdez Clifford ([id number]) Service: ? Author Type: Physician Type: Progress Notes Filed: 05/16/2019 8:19 PM Note Text: Patient presents with: Recheck: 3 month follow up SUBJECTIVE: Anel Espino is a 83 year old year old lady here today fo r 3 month follow up appointment for review of medical conditions. Ongoing allergy symptoms with runny nose. Drips all day Zyrtec, Benadryl no help. When sits down for a meal, starts running more. Noted stopped Lipitor since thought was for calcium--will re sume Jet-asleep tried Night sweats past 3 weeks. Bruising right morelos after fell--still red but healing. Swell ing coming down. Large hematoma noted. Chronic pain issues discussed. Had been taking the percocet for pain control but trial on Vicodin done--pain not adequately contr olled and interfered with activity and sleep plus had a fall and has h ad increased pain.. MMED for current RX 30. Tolerates well. No adverse ef fects. Controls pain adequate so able to do ADLs and some IADLs. PAST MEDICAL HISTORY Diagnosis Date - ABNORMAL LIVER FUNCTION STUDY 01/13/2007 - Anemia, unspecified 01/14/2007 - Basal cell carcinoma 09/25/2011 Superior umbilicus and left posterior calf, Sailaja [place].Will follow annually every year, Due September 2012. 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 Dr. Jimenez. Had s een Dr. Huff - Unspecified asthma(493.90) - Unspecified constipation - Uses hearing aid 10/31/2017 forgot to wear today Current Outpatient Medications Medication Sig - clopidogrel (PLAVIX) 75 mg tablet Take 1 tablet by mouth o nce daily. - clopidogrel (PLAVIX) 75 mg tablet Take 1 tablet by mouth o nce daily. - oxyCODONE-acetaminophen (PERCOCET) 10-325 mg tablet Take 1 tablet by mouth twice daily as needed for up to 30 days. as needed Do not start before March 18, 2019. - hydrALAZINE (APRESOLINE) 10 mg tablet Take 1 tablet by duncan th four times daily as needed. For systolic blood pressure over 159 - atorvastatin (LIPITOR) 10 mg tablet Take 1 tablet by mouth once daily. - donepezil (ARICEPT) 5 mg tablet Take 1 tablet by mouth cliff ly at bedtime. - carvedilol (COREG) 3.125 mg tablet Take 1 tablet by mouth twice daily. - polyethylene glycol 3350 (MIRALAX, GLYCOLAX) 17 gram/dose powder Take one (1) bottle, as instructed for colonoscopy prep. - bisacodyl EC (DULCOLAX, BISACODYL,) 5 mg EC tablet Take tw o (2) tablets, at the designated times, as explained on the instruction she et provided. - PHENYLephrine 0.25 % suppository 1 Suppository by RECTAL r oute twice daily. - hydrocortisone (ANUSOL-HC) 2.5 % rectal cream 1 applicatio n by RECTAL route twice daily as needed. - triamcinolone acetonide (KENALOG) 0.1 % cream Apply 1 appl ication to affected area twice daily as needed. For eczematous rash on extremities and torso - albuterol HFA (PROVENTIL HFA, VENTOLIN HFA) 90 mcg/actuati on inhaler Inhale 2 Puffs as instructed every 6 hours as needed. - albuterol (PROVENTIL) 2.5 mg /3 mL (0.083 %) nebulizer abigail ution Use 3 mL via nebulizer three times daily as needed. OVER 5-15 MINUTES . FOR WHEEZING AND SHORTNESS OF BREATH. - TRIAMCINOLONE ACETONIDE TOPICAL Apply to affected area. - COMPOUNDED PRESCRIPTION Nebulizer for home use. Diagnosis: Emphysema, COPD exacerbation. Lifetime use. - Blood Pressure Cuff - Home Use BLOOD PRESSURE CUFF FOR FARHAN E USE. DX: LABILE BLOOD PRESSURE R09.89 - Svipwrxldoh-Zpfrumkvi-Byq C-Mn (GLUCOSAMINE CHONDROITIN MA XSTR) 500-400 mg cap Take 1 capsule by mouth once daily. - GUAIFENESIN ORAL Take by mouth. No current facility-administered medications for this visit. OBJECTIVE: BP 122/76 (BP Site: Left Arm, BP Position: Sitting, BP Cuff Size: Regular Adult) Pulse 84 Resp 16 Wt 64 kg (141 lb) BMI 21.44 kg/m? Patient is alert, oriented times 3, no apparent distress, af fect is bright, reactive. Heart: Regular rate, rhythm, no murmurs, gallops, rubs. Lungs: Clear to auscultation, bilaterally, breathing non lab ored. Ext: No cyanosis, clubbing, or edema. Large hematoma on morelos from recent fall--skin is thick enough over the area that does not appea r to be at risk of breaking open easily. ASSESSMENT AND PLAN: Encounter Diagnosis ICD-10-CM 1. Hematoma of lower leg S80.10XA 2. Advanced dementia (HCC) F03.90 donepezil (ARICEPT) 5 mg t ablet 3. Leg pain, right M79.604 oxyCODONE-acetaminophen (PERCOCET ) 10-325 mg tablet oxyCODONE-acetaminophen (PERCOCET) 10-325 mg tablet Chronic pain plus now has large hematome on morelos from fall; gradually resolving 4. Pain in the muscles, right leg M79.10 oxyCODONE-acetamino phen (PERCOCET) 10-325 mg tablet oxyCODONE-acetaminophen (PERCOCET) 10-325 mg tablet 5. Spinal stenosis of lumbar region, unspecified whether yoselin rogenic claudication present M48.061 oxyCODONE-acetaminophen (PERCOC ET) 10-325 mg tablet oxyCODONE-acetaminophen (PERCOCET) 10-325 mg tablet Percocet more effective than Hydrocodone. Will resume at BID . Above issues addressed with patient. Patient involved in shared decision making for management of medical issues. Continues on Aricept. Comes to appointments without family members. Monitor for more need for support at home or need for admiss ion to [facility]. Further evaluation and treatment as indicated. History and medications reviewed. Epic updated as needed Refills and/or prescriptions taken care of and meds adjusted as indicated after reviewed history, exam and labs. Health Maintenance reviewed. Updated record and/or ordered t ests as recorded. Encouraged on efforts at healthy diet and regular exercise a nd adequate sleep. Resuming Percocet for control of her chronic pain issues plu s help with acute pain from recently fall. Discussed prevention of falls. Consider PT. Reviewed current [place] pain management protocol. Will follow as discussed. Referrals as needed for management of pain. Further evaluation and treatment as indicated. The majority of the visit was spent counseling and/or coordi nating care for the patient. Temo-zg-utyu time was at least 25 minutes. Sriram Valdez MD comp metabolic panel on 2019-04-23 Albumin [Mass/Vol] 4.5 3.9-4.9 g/dL Normal 04-23-2019 [facility] ([id number]) Comment: Performed By: #### CBC, CMP ####[facility] [id number] [place], [place] [phone] ALP [Catalytic activity/Vol] 115 34-123 U/L Normal 0 04-23-2019 [facility] ([id number]) Comment: Performed By: #### CBC, CMP ####[facility] [address] [place], [place] [phone] ALT [Catalytic activity/Vol] 112 7-38 U/L High 0 04-23-2019 [facility] ([id number]) Comment: Performed By: #### CBC, CMP ####[place] [id number] [place], [place] [id number] [phone] Anion gap [Moles/Vol] 13 9-18 mmol/L Normal 04-23-19 20 [facility] ([id number]) Comment: Performed By: #### CBC, CMP ####[place] [address] [place], [place] [phone] AST [Catalytic activity/Vol] 234 13-35 U/L High 0 04-23-2019 [facility] ([id number]) Comment: Performed By: #### CBC, CMP ####[place] [address] [place], [place] [phone] Bilirubin [Mass/Vol] 0.7 0.2-1.3 mg/dL Normal 0 [facility] ([id number]) Comment: Performed By: #### CBC, CMP ####[place] [address], [place] [phone] Calcium [Mass/Vol] 9.9 8.5-10.2 mg/dL Normal 04-23-2019 [facility] ([id number]) Comment: Performed By: #### CBC, CMP ####[place] [address], [place] [phone] Chloride [Moles/Vol] 104 97-105 mmol/L Normal 0 [facility] ([id number]) Comment: Performed By: #### CBC, CMP ####[place] [address] [place], [place] [phone] CO2 [Moles/Vol] 25 22-30 mmol/L Normal 04-23-2019 [facility] ([id number]) Comment: Performed By: #### CBC, CMP ####[place] [address] [place], [place] [phone] Creatinine [Mass/Vol] 1.07 0.58-0.96 mg/dL High 04-23-19 20 [facility] ([id number]) Comment: Performed By: #### CBC, CMP ####[facility] [place], [place] [phone] eGFR- Amer. 60 Normal 04-23-2019 [facility] ([id number]) Comment: Performed By: #### CBC, CMP ####[facility] [place], [place] [phone] GFR/1.73 sq M predicted among 49 . Normal 04-23-2019 [facility] non-blacks MDRD (S/P/Bld) [Vol (51297) rate/Area] Comment: Result Comment: eGFR (Estima pedro GFR) Units of measure: mL/min/1.73 meters squared eGFR is derived from the ree xpressed MDRD Study equation using the following parameters: serum creatinine, age, gender and race. The creatinine assay has been calibrated to be traceable to IDMS. An eGFR <60 mL/min/1.73m2 fo r >3 months is consistent with chronic kidney disease. Refer to KDOQI guidelines for clinical interpretation. In patients with unstable re nal function, e.g. those with acute kidney injury, the eGFR may not accurately reflect actual GFR. Performed By: #### CBC, CMP ####[facility] [place], [place] [phone] Glucose [Mass/Vol] 109 74-99 mg/dL High 04-23-2019 [facility] ([id number]) Comment: Result Comment: The [place] Diabetes Association (ADA) provides guidance for cutoff values for fasting glucose and random glucose. The ADA defines fasting as no caloric intake for at least 8 hours. Fas ting plasma glucose results between 100 to 125 mg/dL indicate increased risk for diabetes (prediabetes). Fasting plasma glucose resul ts greater than or equal to 126 mg/dL meet the criteria for diagnosis of diabetes. In the absence of unequivocal hyperglycemia, results should be confirmed by repeat testing. In a patient with classic s ymptoms of hyperglycemia or hyperglycemic crisis, random plasma glucose results greater than or equal to 200 mg/dL meet the criteria for diagnosis of diabetes. Reference: Standards of [facility] Care in Diabetes 2016, [place] Diabetes Association. Diabetes Care. 2016.39(Suppl 1). Performed By: #### CBC, CMP ####[facility], [place] [phone] Potassium [Moles/Vol] 4.3 3.7-5.1 mmol/L Normal 04-23-19 [facility] ([id number]) Comment: Performed By: #### CBC, CMP ####[address] [phone] Protein [Mass/Vol] 6.8 6.3-8.0 g/dL Normal 04-23-2019 [facility] (02450) Comment: Performed By: #### CBC, CMP ####[facility], [place] [phone]- [phone] Sodium [Moles/Vol] 142 136-144 mmol/L Normal 04-23-2019 [facility] (69791) Comment: Performed By: #### CBC, CMP ####[facility] [place] [address] [place], [place] [phone] Urea nitrogen [Mass/Vol] 26 7-21 mg/dL High 04-23 [facility] ([id number]) Comment: Performed By: #### CBC, CMP ####[address] [phone] cnov on 2019-04-23 CNOV Office Visit (INTMWS) Normal 04-23-19 [place] ANEL Mcelroy ([id number]) 1935 [facility] Date Time Provider Department ([id number]) 04/23/19 9:40 AM SRIRAM VALDEZ INTMWS During your visit today, we recorded the following informati on about you: Pulse Respiration Blood pressure Weight 84/minute 16/minute 122/76 64 kg Sriram Valdez MD 05/16/2019 8:19 PM Signed Patient presents with: Recheck: 3 month follow up SUBJECTIVE: Anel Espino is a 83 year old year old lady here today for 3 month follow up appointment for review of medical conditions. Ongoing allergy symptoms with runny nose. Drips all day Zyrtec, Benadryl no help. When sits down for a meal, starts running more. Noted stopped Lipitor since thought was for calcium--will re sume Jet-asleep tried Night sweats past 3 weeks. Bruising right morelos after fell--still red but healing. Swelling coming down. Large hematoma noted. Chronic pain issues discussed. Had been taking the per cocet for pain control but trial on Vicodin done--pain not adequately c ontrolled and interfered with activity and sleep plus had a fall and has had increased jackelin n.. MMED for current RX 30. Tolerates well. No adverse effects. Con trols pain adequate so able to do ADLs and some IADLs. PAST MEDICAL HISTORY Diagnosis Date - ABNORMAL LIVER FUNCTION STUDY 01/13/2007 - Anemia, unspecified 01/14/2007 - Basal cell carcinoma 09/25/2011 Superior umbilicus and left posterior calf, Sailaja Suárez.Will follow annually every year, Due September 2012. 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 Dr. Jimenez. Had s een Dr. Huff - Unspecified asthma(493.90) - Unspecified constipation - Uses hearing aid 10/31/2017 forgot to wear today Current Outpatient Medications Medication Sig - clopidogrel (PLAVIX) 75 mg tablet Take 1 tablet by mouth o nce daily. - clopidogrel (PLAVIX) 75 mg tablet Take 1 tablet by mouth o nce daily. - oxyCODONE-acetaminophen (PERCOCET) 10-325 mg tablet Take 1 tablet by mouth twice daily as needed for up to 30 days. as needed Do not start before March 18, 2019. - hydrALAZINE (APRESOLINE) 1 0 mg tablet Take 1 tablet by mouth four times daily as needed. For systolic blood pressure over 159 - atorvastatin (LIPITOR) 10 mg tablet Take 1 tablet by mouth once daily. - donepezil (ARICEPT) 5 mg tablet Take 1 tablet by mouth cliff ly at bedtime. - carvedilol (COREG) 3.125 mg tablet Take 1 tablet by mouth twice daily. - polyethylene glycol 3350 ( MIRALAX, GLYCOLAX) 17 gram/dose powder Take one (1) bottle, as instructed for colonoscopy prep. - bisacodyl EC (DULCOLAX, BISACODYL,) 5 mg EC ta blet Take two (2) tablets, at the designated times, as explained on the instruction sheet provided. - PHENYLephrine 0.25 % suppository 1 Suppository by RECTAL route twice daily. - hydrocortisone (ANUSOL-HC) 2.5 % rectal cream 1 application by RECTAL route twice daily as needed. - triamcinolone acetonide (K ENALOG) 0.1 % cream Apply 1 application to affected area twice daily as needed. For eczematous rash on extremiti es and torso - albuterol HFA (PROVENTIL H FA, VENTOLIN HFA) 90 mcg/actuation inhaler Inhale 2 Puffs as instructed every 6 hours as needed. - albuterol (PROVENTIL) 2.5 mg /3 mL (0. 083 %) nebulizer solution Use 3 mL via nebulizer three times daily as needed. OVER 5-15 MINUTES. FO R WHEEZING AND SHORTNESS OF BREATH. - TRIAMCINOLONE ACETONIDE TOPICAL Apply to affected area. - COMPOUNDED PRESCRIPTION Nebulizer for home use. Diag nosis: Emphysema, COPD exacerbation. Lifetime use. - Blood Pressure Cuff - Home Use BLOOD PRESSURE CUFF FOR HOME USE. DX: LABILE BLOOD PRESSURE R09.89 - Dzrgziedheo-Wigetxgvx-Syi C-Mn (GLUCOSAMINE CHONDROI TIN MAXSTR) 500-400 mg cap Take 1 capsule by mouth once daily. - GUAIFENESIN ORAL Take by mouth. No current facility-administered medications for this visit. OBJECTIVE: BP 122/76 (BP Site: Left Arm, BP Position: Sitting, BP Cuff Size: Regular Adult) Pulse 84 Resp 16 Wt 64 kg (141 lb) BMI 21.44 kg/m? Patient is alert, oriented times 3, no apparent distress, affect is bright, reactive. Heart: Regular rate, rhythm, no murmurs, gallops, rubs. Lungs: Clear to auscultation, bilaterally, breathing non lab ored. Ext: No cyanosis, clubbing, or edema. Large hematoma on morelos from recent fall--skin is thick enough over the area that does not appear to be at risk of breaking open easily. ASSESSMENT AND PLAN: Encounter Diagnosis ICD-10-CM 1. Hematoma of lower leg S80.10XA 2. Advanced dementia (HCC) F03.90 donepezil (ARICEPT) 5 mg t ablet 3. Leg pain, right M79.604 oxyCODONE-jose taminophen (PERCOCET) 10-325 mg tablet oxyCODONE-acetaminophen (PERCOCET) 10-325 mg tablet Chronic pain plus now has large hematome on morelos from fall; gradually resolving 4. Pain in the muscles, right leg M79.10 oxyCODONE-acetami nophen (PERCOCET) 10-325 mg tablet oxyCODONE-acetaminophen (PERCOCET) 10-325 mg tablet 5. Spinal stenosis of lumbar region, unspecified whether yoselin rogenic claudication present M48.061 oxyCODONE-acetaminophen (PERCOC ET) 10-325 mg tablet oxyCODONE-acetaminophen (PERCOCET) 10-325 mg tablet Percocet more effective than Hydrocodone. Will resume at BID . Above issues addressed with patient. Patient involved in shared decision making for managem ent of medical issues. Continues on Aricept. Comes to appointments without family members. Monitor for more need for support at home or need for admiss ion to [facility]. Further evaluation and treatment as indicated. History and medications reviewed. Epic updated as needed Refills and/or prescriptions taken care of and meds adjusted as indicated after reviewed history, exam and labs. Health Maintenance reviewed. Updated record and/ or ordered tests as recorded. Encouraged on efforts at healthy diet an d regular exercise and adequate sleep. Resuming Percocet for control of her chronic jackelin n issues plus help with acute pain from recently fall. Discussed prevention of falls. Consider PT. Reviewed current [place] pain management protocol. Will follow as discussed. Referrals as needed for management of pain. Further evaluation and treatment as indicated. The majority of the visit wa s spent counseling and/or coordinating care for the patient. Eoka-xk-dllc time was at least 25 minutes. MD Sriram Cano MD 04/23/2019 11:07 AM Addendum Jet Aslep active ingredient is diphenhydramine 50 mg which i s same active ingredient as Benadryl or Allergy medicine which is 25 mg on your bottle. Okay to use for sleep but make sure not causing too mu ch daytime drowsiness. Also this med can cause confusion or vision issues in some p atients. if Atrovent nasal spray helping but just not enough, may add allergy med, like Claritin or Clemencia or Benadryl. Okay to continue taking the hydralazine just as needed for high blood pressures over 150. BP today is excellent. Okay if BP staying under 150/90 most of the time. If stays o reta 150/90 and having to take the hydralazine often, we can adjust other BP meds. Consider physical therapy to help with balance. Let me know if need a formal consult order. Use your cane for balance. If you need a walker, let me know.--can send in prescr iption if covered with insurance and need. Referring Provider: SELF [[id number]] Allergies As of Date: 04/23/2019 Noted Allergy Reaction AMBIEN (ZOLPIDEM) 12/28/2012 14 - Other: See Comments Comments: Hangover effect/body aches GABAPENTIN 07/18/2014 14 - Other: See Comments Comments: states that made me crazy; tremor and made her f orgetful SULFA (SULFONAMIDE ANTIBIOTICS) 08/07/2006 4 - Hives Date Reviewed: 04/23/2019 Reviewed by: Katelyn Bernal LPN - Fully Assessed Reason for Visit: Recheck [92] Cmt: 3 month follow up Primary Visit Diagnosis:Hematoma of lower leg [S80.10XA] Other Visit Diagnoses:Advanced dementia (HCC) [F03.90] Leg pain, right [M79.604] Comment:Chronic pain plus now has large hematome on morelos from fall; gradually resolving Pain in the muscles, right leg [M79.10] Spinal stenosis of lumbar region, unspecified whether neurogenic claudication present [M48.061] Comment:Percocet more effective than Hydrocodone. Will resume at BID. Order(s):ipratropium bromide (ATROVENT) 42 mcg (0.06 %) nasa l sprayUse 2 Sprays in the nose four times daily as needed.Disp: 3 Bottle Rfl: 3 donepezil (ARICEPT) 5 mg tabletTake 1 tablet by mouth daily at bedtime.Disp: 90 tabletRfl: 3 oxyCODONE-acetaminophen (PERCOCET) 10-325 mg tabletTake 1 ta blet by mouth twice daily as needed for up to 30 days. as neededDisp : 60 tabletRfl: 0 [START ON 05/23/2019] oxyCODONE-acetaminophen (PERCOCET) 10-32 5 mg tabletTake 1 tablet by mouth twice daily as needed for up to 30 days. as needed Do not start before May 23, 2019.Disp: 60 tabletR fl: 0 Prescriptions as of 04/23/2019 Sig: DONEPEZIL 5 MG TABLET Take 1 tablet by mouth daily * OXYCODONE-ACETAMINOPHEN 10 MG* Take 1 tablet by mouth twice * OXYCODONE-ACETAMINOPHEN 10 MG* Take 1 tablet by mouth twice * CLOPIDOGREL 75 MG TABLET Take 1 tablet by mouth once d* HYDRALAZINE 10 MG TABLET Take 1 tablet by mouth four t* ATORVASTATIN 10 MG TABLET Take 1 tablet by mouth once d* CARVEDILOL 3.125 MG TABLET Take 1 tablet by mouth twice * POLYETHYLENE GLYCOL 3350 17 G* Take one (1) bottle, as instr * BISACODYL 5 MG TABLET,DELAYED* Take two (2) tablets, at the * PHENYLEPHRINE 0.25 % RECTAL S* 1 Suppository by RECTAL route * HYDROCORTISONE 2.5 % TOPICAL * 1 application by RECTAL route * TRIAMCINOLONE ACETONIDE 0.1 %* Apply 1 application to affect * ALBUTEROL SULFATE HFA 90 MCG/* Inhale 2 Puffs as instructed * ALBUTEROL SULFATE 2.5 MG/3 ML* Use 3 mL via nebulizer three * TRIAMCINOLONE ACETONIDE TOPIC* Apply to affected area. COMPOUNDED PRESCRIPTION Nebulizer for home use. Diagn* COMPOUNDED PRESCRIPTION BLOOD PRESSURE CUFF FOR HOME * YUEULBYZWNR-LTVOALLEY-CQD C-M* Take 1 capsule by mouth once * GUAIFENESIN ORAL Take by mouth. IPRATROPIUM BROMIDE 42 MCG (0* Use 2 Sprays in the nose four * Medication notes this encounter CLOPIDOGREL 75 MG TABLET >> Sriram Valdez MD 04/23/2019 10:53 AM Needs to go to [employer] Problem List As Of Date 04/23/2019 Noted Resolved Coronary atherosclerosis [I25.10] More... COPD (chronic obstructive pulmonary disease) (H* More... Unspecified Asthma [J45.909] More... Nonspecific abnormal results of liver function *01/13/2007 0 11/11/2011 CONSTIPATION NOS [K59.00] 01/13/2007 Mixed hyperlipidemia [E78.2] 04/09/2007 More... More... Former smoker [Z87.891] 11/16/2009 Spinal stenosis [M48.00] 11/16/2009 More... More... More... Insomnia [G47.00] 11/11/2011 More... Hearing loss [H91.90] 09/07/2014 Cerebrovascular accident (CVA) (HCC) [I63.9] 12/12/2015 Subdural hematoma (HCC) [S06.5X9A] 12/16/2016 Depression [F32.9] 05/01/2017 Uses hearing aid [Z97.4] 10/31/2017 More... Vascular dementia, uncomplicated [F01.50] 12/05/2017 More... Fall with injury [W19.XXXA] 01/01/2018 More... External otitis of right ear [H60.91] 01/01/2018 More... HTN (hypertension) [I10] 01/01/2018 More... DJD (degenerative joint disease) [M19.90] 01/01/2018 More... Chronic pain syndrome [G89.4] 01/01/2018 More... Other instructions from your clinician: Jet Aslep active ingredient is diphenhydramine 50 mg which i s same active ingredient as Benadryl or Allergy medicine which is 25 mg on your bottle. Okay to use for sleep but make sure not causing too much day time drowsiness. Also this med can cause confusion or vision issu es in some patients. if Atrovent nasal spray helping but just not enough, may add allergy med, like Claritin or Clemencia or Benadryl. Okay to continue taking the hydralazine just as needed for h igh blood pressures over 150. BP today is excellent. Okay if BP staying under 150/90 most of the time. If stays o reta 150/90 and having to take the hydralazine often, we can adjust othe r BP meds. Consider physical therapy to help with balance. Let me know if need a formal consult order. Use your cane for balance. If you need a walker, let me know.--can send in prescription if covered with insurance and need. Prescriptions ordered this encounter Disp Refills Start End IPRATROPIUM BROMIDE 42 MCG (0.06 %) * 3 Bernardo* 3 04/23/2019 Route: NASAL Sig: Use 2 Sprays in the nose four times daily as needed. DONEPEZIL 5 MG TABLET 90 t* 3 04/23/2019 Cmt: Patient states that has not been getting se nt as in the past auto refill Route: ORAL Sig: Take 1 tablet by mouth daily at bedtime. OXYCODONE-ACETAMINOPHEN 10 MG-325 MG* 60 t* 0 04/23/201910/2019 Route: ORAL Sig: Take 1 tablet by mouth twice daily as needed for up to 30 days. as needed OXYCODONE-ACETAMINOPHEN 10 MG-325 MG* 60 t* 0 05/23/201909/2019 Route: ORAL Sig: Take 1 tablet by mouth twice daily as needed for up to 30 days. as needed Do not start before May 23, 2019. Medications Discontinued During This Encounter clopidogrel (PLAVIX) 75 mg tablet 30 t* 0 04/08/2019 04/23/2019 Route: ORAL Sig: Take 1 tablet by mouth once daily. Disc: Reason for discontinue is not on file. clopidogrel (PLAVIX) 75 mg tablet 90 t* 3 04/02/2019 04/23/2019 Route: ORAL Sig: Take 1 tablet by mouth once daily. Disc: Reason for discontinue is not on file. donepezil (ARICEPT) 5 mg tablet 90 t* 3 10/16/2018 04/23/2019 Class: [employer] Route: ORAL Sig: Take 1 tablet by mouth daily at bedtime. Disc: Reason for discontinue is not on file. oxyCODONE-acetaminophen (PERCOCET) 1* 60 t* 0 03/18/2019 020 Class: Print RX Route: ORAL Sig: Take 1 tablet by mouth twice daily as needed for up to 30 days. as needed Do not start before March 18, 2019. Disc: Reason for discontinue is not on file. Letter Text Encounter Status:Closed by SRIRAM VALDEZ MD on 05/16/19 cbc on 2019-04-23 Absolute nRBC <0.01 <0.01 Normal 04-23-2019 [facility] ([id number]) Comment: Performed By: #### CBC, CMP ####[place] [phone] Erythrocyte distribution 13.7 11.5-15.0 % Normal 04-[address] [facility] width (RBC) [Ratio] [place] ([id number]) Comment: Performed By: #### CBC, CMP ####[address] [phone] Hematocrit (Bld) [Volume 44.0 36.0-46.0 % Normal 04-[address] [facility] fraction] [place] ([id number]) Comment: Performed By: #### CBC, CMP ####[address] [phone] Hemoglobin (Bld) 13.3 11.5-15.5 g/dL Normal 04-23-2019 [facility] [Mass/Vol] [place] ([id number]) Comment: Performed By: #### CBC, CMP ####[address] [phone] MCH (RBC) [Entitic mass] 27.4 26.0-34.0 pG Normal 04-23 [facility] ([id number]) Comment: Performed By: #### CBC, CMP ####[place] [address] [place], [place] [phone] MCHC (RBC) [Mass/Vol] 30.2 30.5-36.0 g/dL Low 04-23-19 20 [facility] ([id number]) Comment: Performed By: #### CBC, CMP ####[place] [address], [place] [phone] MCV (RBC) [Entitic vol] 90.7 80.0-100.0 fL Normal 04-23 [facility] ([id number]) Comment: Performed By: #### CBC, CMP ####[place] [address] [place], [place] [phone] Platelet mean volume 10.7 9.0-12.7 fL Normal [address] [facility] (d) [Entitic vol] [place] ([id number]) Comment: Performed By: #### CBC, CMP ####[place] [address] [place], [place] [phone] Platelets (Bld) [#/Vol] 286 150-400 k/uL Normal 2019 [facility] ([id number]) Comment: Performed By: #### CBC, CMP ####[place] [address], [place] [phone]- [phone] RBC (Bld) [#/Vol] 4.85 3.90-5.20 m/uL Normal 04-23-2019 [facility] (83094) Comment: Performed By: #### CBC, CMP ####[place] [address] [place], [place] [phone] WBC (Bld) [#/Vol] 9.33 3.70-11.00 k/uL Normal 04-23-2019 [facility] ([id number]) Comment: Performed By: #### CBC, CMP ####[place] [address] [place], [place] [phone] progress on 2019-03 PROGRESS HNO ID: [id number] Normal 04-09-[address] [facility] Author: Brenda Hurd ([id number]) Service: ? Author Type: Physician Type: Progress Notes Filed: 04/09/2019 1:43 PM Note Text: Anel Espino presents for follow up of pain and jackelin nful movement in the right shoulder. She has advanced glenohumeral joint a rthritis, fell on ice and snow a few weeks ago, had to army crawl up a hill to get to a place where she could stand up. She believes that crawl ing increased her shoulder pain. PAST MEDICAL HISTORY Diagnosis Date - ABNORMAL LIVER FUNCTION STUDY 01/13/2007 - Anemia, unspecified 01/14/2007 - Basal cell carcinoma 09/25/2011 Superior umbilicus and left posterior calf, Sailaja Kan.Will follow annually every year, Due September 2012. 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 Dr. Jimenez. Had s een Dr. Huff - Unspecified asthma(493.90) - Unspecified constipation - Uses hearing aid 10/31/2017 forgot to wear today PAST SURGICAL HISTORY Procedure Laterality Date - COLONOSCOP W/ OR W/O BRSH SPEC 10/23/2018 Colonoscopy - COLONOSCOPY W/BX 12/13/09 - EGD W/O OR W/BRUSH/WASH 10/23/2018 EGD - INCISION EARDRUM,ASPIR,GEN ANESTH Myringotomy/tubes - MASTOIDECTOMY Left age 11 - PAST SURGICAL HISTORY OF cholestetoma bilat. ears x 6 - PAST SURGICAL HISTORY OF breast, milk glands removed - PAST SURGICAL HISTORY OF gallbladder - PAST SURGICAL HISTORY OF 06/2008 Lumbar Laminectomy - [facility] - PAST SURGICAL HISTORY OF squamous cell removal - right thigh Menard - REMOVAL OF OVARY(S) 09/2008 Oophorectomy - [facility] - RIGHT HEART CATHETERIZATION 2005,2006 Cardiac cath, R heart - TOTAL ABDOM HYSTERECTOMY Hysterectomy, [facility] Current Outpatient Medications on File Prior to Visit Medication Sig - oxyCODONE-acetaminophen (PERCOCET) 10-325 mg tablet Take 1 tablet by mouth twice daily for 30 days. as needed - atorvastatin (LIPITOR) 10 mg tablet Take 1 tablet by mouth once daily. - [START ON 03/22/2019] oxyCODONE-acetaminophen (PERCOCET) 10- 325 mg tablet Take 1 tablet by mouth twice daily for 30 days. - [START ON 02/20/2019] oxyCODONE-acetaminophen (PERCOCET) 10 -325 mg tablet Take 1 tablet by mouth twice daily for 30 days. - omeprazole (PRILOSEC) 20 mg capsule Take 2 capsules by duncan th once daily. - donepezil (ARICEPT) 5 mg tablet Take 1 tablet by mouth cliff ly at bedtime. - clopidogrel (PLAVIX) 75 mg tablet Take 1 tablet by mouth o nce daily. - carvedilol (COREG) 3.125 mg tablet Take 1 tablet by mouth twice daily. - amitriptyline (ELAVIL) 50 mg tablet Take 1 tablet by mouth daily at bedtime. May take extra half pill nightly as needed for slee p - polyethylene glycol 3350 (MIRALAX, GLYCOLAX) 17 gram/dose powder Take one (1) bottle, as instructed for colonoscopy prep. - bisacodyl EC (DULCOLAX, BISACODYL,) 5 mg EC tablet Take tw o (2) tablets, at the designated times, as explained on the instruction she et provided. - PHENYLephrine 0.25 % suppository 1 Suppository by RECTAL r oute twice daily. - hydrocortisone (ANUSOL-HC) 2.5 % rectal cream 1 applicatio n by RECTAL route twice daily as needed. - triamcinolone acetonide (KENALOG) 0.1 % cream Apply 1 appl ication to affected area twice daily as needed. For eczematous rash on extremities and torso - hydrALAZINE (APRESOLINE) 10 mg tablet Take 1 tablet by duncan four times daily as needed. For systolic blood pressure over 160 - albuterol HFA (PROVENTIL HFA, VENTOLIN HFA) 90 mcg/actuati on inhaler Inhale 2 Puffs as instructed every 6 hours as needed. - albuterol (PROVENTIL) 2.5 mg /3 mL (0.083 %) nebulizer abigail ution Use 3 mL via nebulizer three times daily as needed. OVER 5-15 MINUTES . FOR WHEEZING AND SHORTNESS OF BREATH. - TRIAMCINOLONE ACETONIDE TOPICAL Apply to affected area. - COMPOUNDED PRESCRIPTION Nebulizer for home use. Diagnosis: Emphysema, COPD exacerbation. Lifetime use. - Blood Pressure Cuff - Home Use BLOOD PRESSURE CUFF FOR FARHAN E USE. DX: LABILE BLOOD PRESSURE R09.89 - Zmysrjqeqvk-Ujwdrxtlj-Kjg C-Mn (GLUCOSAMINE CHONDROITIN MA XSTR) 500-400 mg cap Take 1 capsule by mouth once daily. - GUAIFENESIN ORAL Take by mouth. - citalopram (CELEXA) 20 mg tablet Take 1 tablet by mouth on ce daily. (Patient not taking: Reported on 01/21/2019 ) No current facility-administered medications on file prior t o visit. Physical Exam Findings: General exam: Normal, Extremeties right shoulder limited motion in all planes with crepitus. x-ray shows advanced OA right glenohumeral joint Assessment: shoulder arthritis, acute exacerbation Plan: Discussed that last injection was 2 months ago, and under no rmal circumstances, I would rather wait 3-4 months between inject ions. But, given that exacerbation was due to her recent fall, it is re asonable to repeat the injection early to give pain relief. The risk, benefits and alternatives of injection and no inje ction therapy were discussed. Personnel were discussed and the patient con sented for an injection. The patient has been identified by name and date. The injection site was identified, marked and prepped with a alc ohol swab. Time out completed. The right glenohumeral joint was injecte d with a 25 gauge needle with 1cc Celestone (6 mg), 4cc sensorcaine 0.5 %, 4cc xylocaine plain 1%. The injection site was then dressed with a bandaid. The patient tolerated the injection well. The patient was in structed to call the office if any adverse local effects occurred or any if any questions or concerns arise. Kenny Davis DO PROGRESS HNO ID: [id number] Normal 04-09-[address] [facility] Author: Marsha Castro Ma Clifford ([id number]) Service: ? Author Type: ? Type: Progress Notes Filed: 04/09/2019 1:43 PM Note Text: AMB ROOMING INTAKE FLOWSHEET DATA Risk Screening Do you have concerns about personal safety or safety in the home?: No Pain Pain Level: 8 Pain Location: Shoulder-Right Description: Dull, Aching Duration Amount of Time: (ongoing) Frequency: Continuous Intervention: Other: See comment(Celestino hot) Patient here today for 8 week post visit arthritis right douglas ulder with injection given. Reports relief with the injection. cnov on 2019-04-09 CNOV Office Visit (FRFHWS) Normal 04-09-[address] [place] [address] ANEL Mcelroy ([id number]) 1935 [facility] Date Time Provider Department ([id number]) 04/09/19 11:30 AM KENNY DAVIS [facility] During your visit today, we recorded the following informati on about you: Marsha Castro Ma 04/09/2019 1:43 PM Signed AMB ROOMING INTAKE FLOWSHEET DATA Risk Screening Do you have concerns about personal safety or safety in the home?: No Pain Pain Level: 8 Pain Location: Shoulder-Right Description: Dull, Aching Duration Amount of Time: (ongoing) Frequency: Continuous Intervention: Other: See comment(Celestino douglass) Patient here today for 8 week post visit arthritis right douglas ulder with injection given. Reports relief with the injection. Kenny Davis DO 04/09/2019 1:43 PM Signed Anel Espino presents for follow up of pain a nd painful movement in the right shoulder. She has advanced gle nohumeral joint arthritis, fell on ice and snow a few weeks ago, had to army crawl up a hill to g et to a place where she could stand up. She believes that crawling incre ased her shoulder pain. PAST MEDICAL HISTORY Diagnosis Date - ABNORMAL LIVER FUNCTION STUDY 01/13/2007 - Anemia, unspecified 01/14/2007 - Basal cell carcinoma 09/25/2011 Superior umbilicus and left posterior calf, Dr Sommer gregg [place].Will follow annually every year, Due September 2012. 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 Dr. Jimenez. Had s een Dr. Huff - Unspecified asthma(493.90) - Unspecified constipation - Uses hearing aid 10/31/2017 forgot to wear today PAST SURGICAL HISTORY Procedure Laterality Date - COLONOSCOP W/ OR W/O BRSH SPEC 10/23/2018 Colonoscopy - COLONOSCOPY W/BX 12/13/09 - EGD W/O OR W/BRUSH/WASH 10/23/2018 EGD - INCISION EARDRUM,ASPIR,GEN ANESTH Myringotomy/tubes - MASTOIDECTOMY Left age 11 - PAST SURGICAL HISTORY OF cholestetoma bilat. ears x 6 - PAST SURGICAL HISTORY OF breast, milk glands removed - PAST SURGICAL HISTORY OF gallbladder - PAST SURGICAL HISTORY OF 06/2008 Lumbar Laminectomy - [facility] - PAST SURGICAL HISTORY OF squamous cell removal - right thigh [place] - REMOVAL OF OVARY(S) 09/2008 Oophorectomy - [facility] - RIGHT HEART CATHETERIZATION 2005,2006 Cardiac cath, R heart - TOTAL ABDOM HYSTERECTOMY Hysterectomy, [facility] Current Outpatient Medications on File Prior to Visit Medication Sig - oxyCODONE-acetaminophen (PERCOCET) 10-325 mg tablet Take 1 tablet by mouth twice daily for 30 days. as needed - atorvastatin (LIPITOR) 10 mg tablet Take 1 tablet by mouth once daily. - [START ON 03/22/2019] oxyCODONE-acetamin ophen (PERCOCET) 10-325 mg tablet Take 1 tablet by mouth twice daily for 30 days. - [START ON 02/20/2019] oxyCO DONE-acetaminophen (PERCOCET) 10-325 mg tablet Take 1 tablet by mouth twice daily for 30 days. - omeprazole (PRILOSEC) 20 mg capsule Take 2 capsules by duncan th once daily. - donepezil (ARICEPT) 5 mg tablet Take 1 tablet by mouth cliff ly at bedtime. - clopidogrel (PLAVIX) 75 mg tablet Take 1 tablet by mouth o nce daily. - carvedilol (COREG) 3.125 mg tablet Take 1 tablet by mouth twice daily. - amitriptyline (ELAVIL) 50 mg tablet Ta ke 1 tablet by mouth daily at bedtime. May take extra half pill nightly as needed for sleep - polyethylene glycol 3350 ( MIRALAX, GLYCOLAX) 17 gram/dose powder Take one (1) bottle, as instructed for colonoscopy prep. - bisacodyl EC (DULCOLAX, BISACODYL,) 5 mg EC ta blet Take two (2) tablets, at the designated times, as explained on the instruction sheet provided. - PHENYLephrine 0.25 % suppository 1 Suppository by RECTAL route twice daily. - hydrocortisone (ANUSOL-HC) 2.5 % rectal cream 1 application by RECTAL route twice daily as needed. - triamcinolone acetonide (K ENALOG) 0.1 % cream Apply 1 application to affected area twice daily as needed. For eczematous rash on extremiti es and torso - hydrALAZINE (APRESOLINE) 1 0 mg tablet Take 1 tablet by mouth four times daily as needed. For systolic blood pressure over 160 - albuterol HFA (PROVENTIL H FA, VENTOLIN HFA) 90 mcg/actuation inhaler Inhale 2 Puffs as instructed every 6 hours as needed. - albuterol (PROVENTIL) 2.5 mg /3 mL (0. 083 %) nebulizer solution Use 3 mL via nebulizer three times daily as needed. OVER 5-15 MINUTES. FO R WHEEZING AND SHORTNESS OF BREATH. - TRIAMCINOLONE ACETONIDE TOPICAL Apply to affected area. - COMPOUNDED PRESCRIPTION Nebulizer for home use. Diag nosis: Emphysema, COPD exacerbation. Lifetime use. - Blood Pressure Cuff - Home Use BLOOD PRESSURE CUFF FOR HOME USE. DX: LABILE BLOOD PRESSURE R09.89 - Uepzzixdmky-Mzoihmuhf-Wmd C-Mn (GLUCOSAMINE CHONDROI TIN MAXSTR) 500-400 mg cap Take 1 capsule by mouth once daily. - GUAIFENESIN ORAL Take by mouth. - citalopram (CELEXA) 20 mg tablet Take 1 tablet by mouth once daily. (Patient not taking: Reported on 01/21/2019 ) No current facility-administered medications on file prior t o visit. Physical Exam Findings: General exam: Normal, Extremeties right shoulder limited motion in all planes with crepitus. x-ray shows advanced OA right glenohumeral joint Assessment: shoulder arthritis, acute exacerbation Plan: Discussed that last injectio n was 2 months ago, and under normal circumstances, I would rather wait 3-4 months between injections. But, give n that exacerbation was due to her recent fall, it is reasonable to repeat the injection early to give pain relief. The risk, benefits and alternatives of i njection and no injection therapy were discussed. Personnel were di scussed and the patient consented for an injection. The patient has been identified by name and jean-pierre hdate. The injection site was identified, marked and prepped with a alcohol swab. Time o ut completed. The right glenohumeral joint was injected with a 25 gauge needle with 1cc Celestone (6 mg), 4cc sensorcaine 0.5 %, 4cc xylocaine chuck in 1%. The injection site was then dressed with a bandaid. The patient tolerated the injec tion well. The patient was instructed to ca ll the office if any adverse local effects occurred or any if any questions or concerns arise. Kenny Davis DO Referring Provider: SELF [[id number]] Allergies As of Date: 04/09/2019 Noted Allergy Reaction AMBIEN (ZOLPIDEM) 12/28/2012 14 - Other: See Comments Comments: Hangover effect/body aches GABAPENTIN 07/18/2014 14 - Other: See Comments Comments: states that made me crazy; tremor and made her f orgetful SULFA (SULFONAMIDE ANTIBIOTICS) 08/07/2006 4 - Hives Date Reviewed: 04/09/2019 Reviewed by: Marsha Castro Ma - Fully Assessed Reason for Visit: Established Patient [[id number]] Cmt: 8 week post visit arthritis r ight shoulder with injection given Primary Visit Diagnosis:Arthritis of shoulder [M19.019] Order(s):[] betamethasone acetate-betamethasone sodium phosphate 6 mg injection (CELESTONE)Disp: Rfl: Prescriptions as of 04/09/2019 Sig: CLOPIDOGREL 75 MG TABLET Take 1 tablet by mouth once d* OXYCODONE-ACETAMINOPHEN 10 MG* Take 1 tablet by mouth twice * HYDRALAZINE 10 MG TABLET Take 1 tablet by mouth four t* ATORVASTATIN 10 MG TABLET Take 1 tablet by mouth once d* DONEPEZIL 5 MG TABLET Take 1 tablet by mouth daily * CARVEDILOL 3.125 MG TABLET Take 1 tablet by mouth twice * POLYETHYLENE GLYCOL 3350 17 G* Take one (1) bottle, as instr * BISACODYL 5 MG TABLET,DELAYED* Take two (2) tablets, at the * TRIAMCINOLONE ACETONIDE 0.1 %* Apply 1 application to affect * ALBUTEROL SULFATE HFA 90 MCG/* Inhale 2 Puffs as instructed * COMPOUNDED PRESCRIPTION BLOOD PRESSURE CUFF FOR HOME * CLOPIDOGREL 75 MG TABLET Take 1 tablet by mouth once d* PHENYLEPHRINE 0.25 % RECTAL S* 1 Suppository by RECTAL route * HYDROCORTISONE 2.5 % TOPICAL * 1 application by RECTAL route * ALBUTEROL SULFATE 2.5 MG/3 ML* Use 3 mL via nebulizer three * TRIAMCINOLONE ACETONIDE TOPIC* Apply to affected area. COMPOUNDED PRESCRIPTION Nebulizer for home use. Diagn* QMAWDDOROJS-PYAUPATCH-RHI C-M* Take 1 capsule by mouth once * GUAIFENESIN ORAL Take by mouth. Problem List As Of Date 04/09/2019 Noted Resolved Coronary atherosclerosis [I25.10] More... COPD (chronic obstructive pulmonary disease) (H* More... Unspecified Asthma [J45.909] More... Nonspecific abnormal results of liver function *01/13/2007 0 11/11/2011 CONSTIPATION NOS [K59.00] 01/13/2007 Mixed hyperlipidemia [E78.2] 04/09/2007 More... More... Former smoker [Z87.891] 11/16/2009 Spinal stenosis [M48.00] 11/16/2009 More... More... More... Insomnia [G47.00] 11/11/2011 More... Hearing loss [H91.90] 09/07/2014 Cerebrovascular accident (CVA) (HCC) [I63.9] 12/12/2015 Subdural hematoma (HCC) [S06.5X9A] 12/16/2016 Depression [F32.9] 05/01/2017 Uses hearing aid [Z97.4] 10/31/2017 More... Vascular dementia, uncomplicated [F01.50] 12/05/2017 More... Fall with injury [W19.XXXA] 01/01/2018 More... External otitis of right ear [H60.91] 01/01/2018 More... HTN (hypertension) [I10] 01/01/2018 More... DJD (degenerative joint disease) [M19.90] 01/01/2018 More... Chronic pain syndrome [G89.4] 01/01/2018 More... Prescriptions ordered this encounter Disp Refills Start End BETAMETHASONE ACETATE AND SODIUM SUZIE* 04/09/2019 04/09/2019 Route: OTHER Encounter Status:Closed by KENNY DAVIS DO, V on 04/09/19 progress on 2019-03 PROGRESS HNO ID: [id number] Normal 03-27-[address] [facility] Author: Steven Oneal Frank ([id number]) Service: ? Author Type: Physician Type: Progress Notes Filed: 03/27/2019 2:20 PM Note Text: Patient presents with: Musculoskeletal Problem: x 6 days right foot and leg swellin g and pain after fall HPI: Right foot swelling: Duration: fell on some stones in her yard almost 2 weeks ago . Treated here 03/22 for blood blister with erythema on the right lower leg. She had increased foot swelling and numb toes today. Location: Right foot ankle to toes Character: Numbness, no pain Treatment: Has been applying compression over the wound Associated: Ecchymosis of foot, numbness, redness resolved, seeping black from blood blister, takes plavix Pertinent negatives: Denies fever, pain PAST MEDICAL HISTORY Diagnosis Date - ABNORMAL LIVER FUNCTION STUDY 01/13/2007 - Anemia, unspecified 01/14/2007 - Basal cell carcinoma 09/25/2011 Superior umbilicus and left posterior calf, Sailaja Kan.Will follow annually every year, Due September 2012. 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 Dr. Jimenez. Had s een Dr. Huff - Unspecified asthma(493.90) - Unspecified constipation - Uses hearing aid 10/31/2017 forgot to wear today MEDICATIONS: oxyCODONE-acetaminophen (PERCOCET) 10-325 mg tablet Take 1 t ablet by mouth twice daily as needed for up to 30 days. as needed Do not st art before March 18, 2019. hydrALAZINE (APRESOLINE) 10 mg tablet Take 1 tablet by mouth four times daily as needed. For systolic blood pressure over 159 atorvastatin (LIPITOR) 10 mg tablet Take 1 tablet by mouth o nce daily. donepezil (ARICEPT) 5 mg tablet Take 1 tablet by mouth daily at bedtime. clopidogrel (PLAVIX) 75 mg tablet Take 1 tablet by mouth onc e daily. carvedilol (COREG) 3.125 mg tablet Take 1 tablet by mouth tw ice daily. polyethylene glycol 3350 (MIRALAX, GLYCOLAX) 17 gram/dose po wder Take one (1) bottle, as instructed for colonoscopy prep. bisacodyl EC (DULCOLAX, BISACODYL,) 5 mg EC tablet Take two (2) tablets, at the designated times, as explained on the instruction she et provided. PHENYLephrine 0.25 % suppository 1 [address]ository [address] RECTAL rou te twice daily. hydrocortisone (ANUSOL-HC) 2.5 % rectal cream 1 application by RECTAL route twice daily as needed. triamcinolone acetonide (KENALOG) 0.1 % cream Apply 1 applic ation to affected area twice daily as needed. For eczematous rash on extremities and torso albuterol HFA (PROVENTIL HFA, VENTOLIN HFA) 90 mcg/actuation inhaler Inhale 2 Puffs as instructed every 6 hours as needed. albuterol (PROVENTIL) 2.5 mg /3 mL (0.083 %) nebulizer solut ion Use 3 mL via nebulizer three times daily as needed. OVER 5-15 MINUTES . FOR WHEEZING AND SHORTNESS OF BREATH. TRIAMCINOLONE ACETONIDE TOPICAL Apply to affected area. COMPOUNDED PRESCRIPTION Nebulizer for home use. Diagnosis: E mphysema, COPD exacerbation. Lifetime use. Blood Pressure Cuff - Home Use BLOOD PRESSURE CUFF FOR HOME USE. DX: LABILE BLOOD PRESSURE R09.89 Ptagovegwnq-Udnoinhfp-Knt C-Mn (GLUCOSAMINE CHONDROITIN MAXS TR) 500-400 mg cap Take 1 capsule by mouth once daily. GUAIFENESIN ORAL Take by mouth. cephALEXin (KEFLEX) 500 mg capsule Take 1 capsule by mouth t wice daily for 10 days. ALLERGIES: ALLERGIES Allergen Reactions - Ambien [Zolpidem] Other: See Comments Hangover effect/body aches - Gabapentin Other: See Comments states that made me crazy; tremor and made her forgetful - Sulfa (Sulfonamide * Hives VITALS: BP 118/68 Pulse 87 Temp 36.7 ?C (98 ?F) Resp 18 Wt 6 7.1 kg (148 lb) SpO2 96% BMI 22.50 kg/m? PHYSICAL EXAM: GEN: pleasant, no acute distress, alert HEART: regular rate, regular rhythm, no murmurs LUNGS: clear to auscultation, no wheezes or crackles, no inc reased WOB Right morelos: 7x4cm. Fluid filled raised area seeping dark blo od at edges. No surrounding erythema or induration. No calf tender ness, swelling, or cords. Foot: 2+ pitting edema of lateral ankle and foot. Toes are n ot swollen. Sensation is present but diminished. Capillary refi ll ~5 seconds in toes. Dorsalis pedis pulse is palpable. ASSESSMENT/PLAN: 1. Edema of right foot - ICD9: 782.3, ICD10: R60.0 (primary diagnosis) Suspect edema and numbness is related to over compression at the morelos last night. JOSE wrap applied to foot and ankle. Rest and elevation. Avoi d tight compression at the morelos. Follow up with evaluation for DVT if swelling worsens. 2. Blood blister - ICD9: 919.2, ICD10: T14.8XXA Dressed with non-adhesive bandage and self adhesive bandage elastic wrap. Steven Oneal MD cnov on 2019-03-27 CNOV Office Visit (UCWSTR) Normal 03-27-[address] [place] [address] ANEL Mcelroy ([id number]) 1935 [facility] Date Time Provider Department ([id number]) 03/27/19 1:15 PM STEVEN ONEAL [facility] During your visit today, we recorded the following informati on about you: Temperature Pulse Respiration Blood pressure 98 degrees 87/minute 18/minute 118/68 Weight 67.1 kg Steven Oneal MD 03/27/2019 2:20 PM Signed Patient presents with: Musculoskeletal Problem: x 6 days right foot and leg s welling and pain after fall HPI: Right foot swelling: Duration: fell on some stones in her yard almost 2 weeks ago . Treated here 03/22 for blood blister with erythema on the right lower leg. She had increased foot swelling and numb toes today. Location: Right foot ankle to toes Character: Numbness, no pain Treatment: Has been applying compression over the wound Associated: Ecchymosis of foot, numbness, redness resolved, seeping black from blood blister, takes plavix Pertinent negatives: Denies fever, pain PAST MEDICAL HISTORY Diagnosis Date - ABNORMAL LIVER FUNCTION STUDY 01/13/2007 - Anemia, unspecified 01/14/2007 - Basal cell carcinoma 09/25/2011 Superior umbilicus and left posterior calf, Sailaja Suárez.Will follow annually every year, Due September 2012. 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 Dr. Jimenez. Had s een Dr. Huff - Unspecified asthma(493.90) - Unspecified constipation - Uses hearing aid 10/31/2017 forgot to wear today MEDICATIONS: oxyCODONE-acetaminophen (PERCOCET) 10-325 mg tablet Take 1 t ablet by mouth twice daily as needed for up to 30 days. as needed Do not start before March 18, 2019. hydrALAZINE (APRESOLINE) 10 mg tablet Take 1 tab let by mouth four times daily as needed. For systolic blood pressure over 159 atorvastatin (LIPITOR) 10 mg tablet Take 1 tablet by mouth o nce daily. donepezil (ARICEPT) 5 mg tablet Take 1 tablet by mouth daily at bedtime. clopidogrel (PLAVIX) 75 mg tablet Take 1 tablet by mouth onc e daily. carvedilol (COREG) 3.125 mg tablet Take 1 tablet by mouth tw ice daily. polyethylene glycol 3350 (MIRALAX, GLYCOLAX) 17 gram/dose powder Take one (1) bottle, as instructed for colonoscopy prep. bisacodyl EC (DULCOLAX, BISA CODYL,) 5 mg EC tablet Take two (2) tablets, at the designated times, as explained on the instruction sheet prov ided. PHENYLephrine 0.25 % suppository 1 Suppository by RECTAL r oute twice daily. hydrocortisone (ANUSOL-HC) 2.5 % rectal cream 1 applicatio n by RECTAL route twice daily as needed. triamcinolone acetonide (KENALOG) 0.1 % cream Ap ply 1 application to affected area twice daily as needed. For eczematous rash on extremiti es and torso albuterol HFA (PROVENTIL HFA, VENTOLIN HFA) 90 m cg/actuation inhaler Inhale 2 Puffs as instructed every 6 hours as needed. albuterol (PROVENTIL) 2.5 mg /3 mL (0.083 %) nebulizer solution Use 3 mL via nebulizer three times daily as needed. OVER 5-15 MINUTES. FO R WHEEZING AND SHORTNESS OF BREATH. TRIAMCINOLONE ACETONIDE TOPICAL Apply to affected area. COMPOUNDED PRESCRIPTION Nebulizer for home use. Diagnosis: E mphysema, COPD exacerbation. Lifetime use. Blood Pressure Cuff - Home Use BLOOD PRESSURE CUFF FOR FARHAN E USE. DX: LABILE BLOOD PRESSURE R09.89 Vqsgdnkdojx-Xhyogclml-Dpn C-Mn (GLUCOSAM INE CHONDROITIN MAXSTR) 500-400 mg cap Take 1 capsule by mouth once daily. GUAIFENESIN ORAL Take by mouth. cephALEXin (KEFLEX) 500 mg capsule Take 1 capsul e by mouth twice daily for 10 days. ALLERGIES: ALLERGIES Allergen Reactions - Ambien [Zolpidem] Other: See Comments Hangover effect/body aches - Gabapentin Other: See Comments states that made me crazy; tremor and made her forgetful - Sulfa (Sulfonamide * Hives VITALS: BP 118/68 Pulse 87 Temp 36.7 ?C (98 ?F) Resp 18 Wt 67.1 kg (148 lb) SpO2 96% BMI 22.50 kg/m? PHYSICAL EXAM: GEN: pleasant, no acute distress, alert HEART: regular rate, regular rhythm, no murmurs LUNGS: clear to auscultation, no wheezes or crackles, no inc reased WOB Right morelos: 7x4cm. Fluid filled raised area seeping dark b lood at edges. No surrounding erythema or induration. No calf tenderness, sw elling, or cords. Foot: 2+ pitting edema of lateral ankle and foot. Toes are n ot swollen. Sensation is present but diminished. Capillary refill ~5 sec onds in toes. Dorsalis pedis pulse is palpable. ASSESSMENT/PLAN: 1. Edema of right foot - ICD9: 782.3, ICD10: R60.0 (primary diagnosis) Suspect edema and numbness is related to over compression at the morelos last night. JOSE wrap applied to foot and ankle. Rest and elevation. Avoi d tight compression at the morelos. Follow up with evaluation for DVT if swelling worsens. 2. Blood blister - ICD9: 919.2, ICD10: T14.8XXA Dressed with non-adhesive bandage and self adhesive bandage elastic wrap. Steven Oneal MD Referring Provider: SELF [[id number]] Allergies As of Date: 03/27/2019 Noted Allergy Reaction AMBIEN (ZOLPIDEM) 12/28/2012 14 - Other: See Comments Comments: Hangover effect/body aches GABAPENTIN 07/18/2014 14 - Other: See Comments Comments: states that made me crazy; tremor and made her f orgetful SULFA (SULFONAMIDE ANTIBIOTICS) 08/07/2006 4 - Hives Date Reviewed: 03/27/2019 Reviewed by: Holli Merrill LPN - Fully Assessed Reason for Visit: Musculoskeletal Problem [69] Cmt: x 6 days right foot and le g swelling and pain after fall Primary Visit Diagnosis:Edema of right foot [R60.0] Other Visit Diagnosis:Blood blister [T14.8XXA] Prescriptions as of 03/27/2019 Sig: OXYCODONE-ACETAMINOPHEN 10 MG* Take 1 tablet by mouth twice * HYDRALAZINE 10 MG TABLET Take 1 tablet by mouth four t* ATORVASTATIN 10 MG TABLET Take 1 tablet by mouth once d* DONEPEZIL 5 MG TABLET Take 1 tablet by mouth daily * CLOPIDOGREL 75 MG TABLET Take 1 tablet by mouth once d* CARVEDILOL 3.125 MG TABLET Take 1 tablet by mouth twice * POLYETHYLENE GLYCOL 3350 17 G* Take one (1) bottle, as instr * BISACODYL 5 MG TABLET,DELAYED* Take two (2) tablets, at the * PHENYLEPHRINE 0.25 % RECTAL S* 1 Suppository by RECTAL route * HYDROCORTISONE 2.5 % TOPICAL * 1 application by RECTAL route * TRIAMCINOLONE ACETONIDE 0.1 %* Apply 1 application to affect * ALBUTEROL SULFATE HFA 90 MCG/* Inhale 2 Puffs as instructed * ALBUTEROL SULFATE 2.5 MG/3 ML* Use 3 mL via nebulizer three * TRIAMCINOLONE ACETONIDE TOPIC* Apply to affected area. COMPOUNDED PRESCRIPTION Nebulizer for home use. Diagn* COMPOUNDED PRESCRIPTION BLOOD PRESSURE CUFF FOR HOME * RAYYVOPUXRF-QSIXAKQYK-ZFF C-M* Take 1 capsule by mouth once * GUAIFENESIN ORAL Take by mouth. CEPHALEXIN 500 MG CAPSULE Take 1 capsule by mouth twice* Problem List As Of Date 03/27/2019 Noted Resolved Coronary atherosclerosis [I25.10] More... COPD (chronic obstructive pulmonary disease) (H* More... Unspecified Asthma [J45.909] More... Nonspecific abnormal results of liver function *01/13/2007 0 11/11/2011 CONSTIPATION NOS [K59.00] 01/13/2007 Mixed hyperlipidemia [E78.2] 04/09/2007 More... More... Former smoker [Z87.891] 11/16/2009 Spinal stenosis [M48.00] 11/16/2009 More... More... More... Insomnia [G47.00] 11/11/2011 More... Hearing loss [H91.90] 09/07/2014 Cerebrovascular accident (CVA) (HCC) [I63.9] 12/12/2015 Subdural hematoma (HCC) [S06.5X9A] 12/16/2016 Depression [F32.9] 05/01/2017 Uses hearing aid [Z97.4] 10/31/2017 More... Vascular dementia, uncomplicated [F01.50] 12/05/2017 More... Fall with injury [W19.XXXA] 01/01/2018 More... External otitis of right ear [H60.91] 01/01/2018 More... HTN (hypertension) [I10] 01/01/2018 More... DJD (degenerative joint disease) [M19.90] 01/01/2018 More... Chronic pain syndrome [G89.4] 01/01/2018 More... Encounter Status:Closed by STEVEN ONEAL MD on 03/27/19 obsolete on 2019-03 OBSOLETE Refill (INTMWS) Normal 03-25-2019 Jacob james ANEL Mcelroy ([id number]) 1935 [facility] Date Time Provider Department ([id number]) 03/25/19 SRIRAM VALDEZ INTMWS During your visit today, we recorded the following informati on about you: Aarti Oliveira 03/25/2019 11:26 AM Signed Patient has been identified by name and date of : Yes Pending Prescriptions Disp Refills ATORVASTATIN 10 MG TABLET 90 tablet 3 Sig: Take 1 tablet by mouth once daily. JOS: No DONEPEZIL 5 MG TABLET 90 tablet 3 Sig: Take 1 tablet by mouth daily at bedtime. JOS: No CLOPIDOGREL 75 MG TABLET 90 tablet 3 Sig: Take 1 tablet by mouth once daily. JOS: No CARVEDILOL 3.125 MG TABLET 180 tablet 3 Sig: Take 1 tablet by mouth twice daily. JOS: No RX INSTRUCTIONS: Patient aware RX will be sent to pharmacy. No need to notify patient. Aarti Mishra RN 03/25/2019 2:47 PM Signed Patient still has multiple refills at [facility] pharmacy for all 4 medications requested. Patient or family member will need to call [facility] to get refills, does not need to order through doctor. Unable to reach patient by phone, no answer. Called to friend Pranay to have someone call our office to relay this information. Keli Mishra RN Allergies As of Date: 03/25/2019 Noted Allergy Reaction AMBIEN (ZOLPIDEM) 12/28/2012 14 - Other: See Comments Comments: Hangover effect/body aches GABAPENTIN 07/18/2014 14 - Other: See Comments Comments: states that made me crazy; tremor and made her f orgetful SULFA (SULFONAMIDE ANTIBIOTICS) 08/07/2006 4 - Hives Date Reviewed: 03/22/2019 Reviewed by: Delaney [facility] Hospital[facility]ry Beth - Fully Assessed Reason for Visit: Refill Request [94] Visit Diagnoses:Advanced dementia (HCC) [F03.90] Atherosclerosis of coronary artery of [place] heart without angina pectoris, unspecified vessel or lesion type [I25.10] Decreased left ventricular function [I51.9] Prescriptions as of 03/25/2019 Sig: CEPHALEXIN 500 MG CAPSULE Take 1 capsule by mouth twice* OXYCODONE-ACETAMINOPHEN 10 MG* Take 1 tablet by mouth twice * HYDRALAZINE 10 MG TABLET Take 1 tablet by mouth four t* ATORVASTATIN 10 MG TABLET Take 1 tablet by mouth once d* DONEPEZIL 5 MG TABLET Take 1 tablet by mouth daily * CLOPIDOGREL 75 MG TABLET Take 1 tablet by mouth once d* CARVEDILOL 3.125 MG TABLET Take 1 tablet by mouth twice * POLYETHYLENE GLYCOL 3350 17 G* Take one (1) bottle, as instr * BISACODYL 5 MG TABLET,DELAYED* Take two (2) tablets, at the * PHENYLEPHRINE 0.25 % RECTAL S* 1 Suppository by RECTAL route * HYDROCORTISONE 2.5 % TOPICAL * 1 application by RECTAL route * TRIAMCINOLONE ACETONIDE 0.1 %* Apply 1 application to affect * ALBUTEROL SULFATE HFA 90 MCG/* Inhale 2 Puffs as instructed * ALBUTEROL SULFATE 2.5 MG/3 ML* Use 3 mL via nebulizer three * TRIAMCINOLONE ACETONIDE TOPIC* Apply to affected area. COMPOUNDED PRESCRIPTION Nebulizer for home use. Diagn* COMPOUNDED PRESCRIPTION BLOOD PRESSURE CUFF FOR HOME * HNESCLUDTLP-XUMSTQVKY-FTH C-M* Take 1 capsule by mouth once * GUAIFENESIN ORAL Take by mouth. Problem List As Of Date 03/25/2019 Noted Resolved Coronary atherosclerosis [I25.10] More... COPD (chronic obstructive pulmonary disease) (H* More... Unspecified Asthma [J45.909] More... Nonspecific abnormal results of liver function *01/13/2007 0 11/11/2011 CONSTIPATION NOS [K59.00] 01/13/2007 Mixed hyperlipidemia [E78.2] 04/09/2007 More... More... Former smoker [Z87.891] 11/16/2009 Spinal stenosis [M48.00] 11/16/2009 More... More... More... Insomnia [G47.00] 11/11/2011 More... Hearing loss [H91.90] 09/07/2014 Cerebrovascular accident (CVA) (HCC) [I63.9] 12/12/2015 Subdural hematoma (HCC) [S06.5X9A] 12/16/2016 Depression [F32.9] 05/01/2017 Uses hearing aid [Z97.4] 10/31/2017 More... Vascular dementia, uncomplicated [F01.50] 12/05/2017 More... Fall with injury [W19.XXXA] 01/01/2018 More... External otitis of right ear [H60.91] 01/01/2018 More... HTN (hypertension) [I10] 01/01/2018 More... DJD (degenerative joint disease) [M19.90] 01/01/2018 More... Chronic pain syndrome [G89.4] 01/01/2018 More... Encounter Status:Closed by NINA CORTEZ LPN on 04/01/19 progress on 2019-03 PROGRESS HNO ID: [id number] Normal 03-22-[address] [facility] Author: Delaney ([employer]) [id number] Service: ? Author Type: Nurse Practitioner Type: Progress Notes Filed: 03/22/2019 2:59 PM Note Text: Subjective HPI Anel Espino is a 83 year old female who presents wit h a blood blister on her right lower leg for one week. She fell in her yard a week ago and hit her leg on some stones. She has had a large bloo d blister since. It is not painful. Review of Systems Constitutional: Negative. Negative for fever. Musculoskeletal: Positive for falls. Negative for joint pain . See HPI Skin: Negative for rash. See HPI BP 128/82 Pulse 76 Temp 36.7 ?C (98 ?F) (Tympanic) Res p 18 Wt 67.7 kg (149 lb 3.2 oz) BMI 22.69 kg/m? PAST MEDICAL HISTORY Diagnosis Date - ABNORMAL LIVER FUNCTION STUDY 01/13/2007 - Anemia, unspecified 01/14/2007 - Basal cell carcinoma 09/25/2011 Superior umbilicus and left posterior calf, Sailaja Kan.Will follow annually every year, Due September 2012. 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 Dr. Jimenez. Had s een Dr. Huff - Unspecified asthma(493.90) - Unspecified constipation - Uses hearing aid 10/31/2017 forgot to wear today PAST SURGICAL HISTORY Procedure Laterality Date - COLONOSCOP W/ OR W/O BRSH SPEC 10/23/2018 Colonoscopy - COLONOSCOPY W/BX 12/13/09 - EGD W/O OR W/BRUSH/WASH 10/23/2018 EGD - INCISION EARDRUM,ASPIR,GEN ANESTH Myringotomy/tubes - MASTOIDECTOMY Left age 11 - PAST SURGICAL HISTORY OF cholestetoma bilat. ears x 6 - PAST SURGICAL HISTORY OF breast, milk glands removed - PAST SURGICAL HISTORY OF gallbladder - PAST SURGICAL HISTORY OF 06/2008 Lumbar Laminectomy - [facility] - PAST SURGICAL HISTORY OF squamous cell removal - right thigh [place] - REMOVAL OF OVARY(S) 09/2008 Oophorectomy - [facility] - RIGHT HEART CATHETERIZATION 2005,2006 Cardiac cath, R heart - TOTAL ABDOM HYSTERECTOMY Hysterectomy, CHIRAG ALLERGIES Ambien [Zolpidem]; Gabapentin; Sulfa (Sulfonamide Antibiotics) MEDICATIONS oxyCODONE-acetaminophen (PERCOCET) 10-325 mg tablet Take 1 t ablet by mouth twice daily as needed for up to 30 days. as needed Do not st art before March 18, 2019. hydrALAZINE (APRESOLINE) 10 mg tablet Take 1 tablet by mouth four times daily as needed. For systolic blood pressure over 159 atorvastatin (LIPITOR) 10 mg tablet Take 1 tablet by mouth o nce daily. donepezil (ARICEPT) 5 mg tablet Take 1 tablet by mouth daily at bedtime. clopidogrel (PLAVIX) 75 mg tablet Take 1 tablet by mouth onc e daily. carvedilol (COREG) 3.125 mg tablet Take 1 tablet by mouth tw ice daily. polyethylene glycol 3350 (MIRALAX, GLYCOLAX) 17 gram/dose po wder Take one (1) bottle, as instructed for colonoscopy prep. bisacodyl EC (DULCOLAX, BISACODYL,) 5 mg EC tablet Take two (2) tablets, at the designated times, as explained on the instruction she et provided. PHENYLephrine 0.25 % suppository 1 Suppository by RECTAL rou te twice daily. hydrocortisone (ANUSOL-HC) 2.5 % rectal cream 1 application by RECTAL route twice daily as needed. triamcinolone acetonide (KENALOG) 0.1 % cream Apply 1 applic ation to affected area twice daily as needed. For eczematous rash on extremities and torso albuterol HFA (PROVENTIL HFA, VENTOLIN HFA) 90 mcg/actuation inhaler Inhale 2 Puffs as instructed every 6 hours as needed. albuterol (PROVENTIL) 2.5 mg /3 mL (0.083 %) nebulizer solut ion Use 3 mL via nebulizer three times daily as needed. OVER 5-15 MINUTES . FOR WHEEZING AND SHORTNESS OF BREATH. TRIAMCINOLONE ACETONIDE TOPICAL Apply to affected area. COMPOUNDED PRESCRIPTION Nebulizer for home use. Diagnosis: E mphysema, COPD exacerbation. Lifetime use. Blood Pressure Cuff - Home Use BLOOD PRESSURE CUFF FOR HOME USE. DX: LABILE BLOOD PRESSURE R09.89 Qrnobsuaxaz-Pvrrnanep-Xzk C-Mn (GLUCOSAMINE CHONDROITIN MAXS TR) 500-400 mg cap Take 1 capsule by mouth once daily. GUAIFENESIN ORAL Take by mouth. FAMILY HISTORY Problem Relation Age of Onset - Heart Father - other (ibs) Brother - Heart Paternal Grandmother - Heart Paternal Grandfather Social History Tobacco Use - Smoking status: Former Smoker Packs/day: 1.00 Years: 25.00 Pack years: 25.00 Types: Cigarettes Start date: 12/04/2016 Last attempt to quit: 11/14/2017 Years since quittin.3 - Smokeless tobacco: Never Used - Tobacco comment: Down to half PPD; quit after became ill a nd fell Substance Use Topics - Alcohol use: Yes Alcohol/week: 17.5 standard drinks Types: 7 Glasses of Wine (5oz) per week - Drug use: No Objective Physical Exam Constitutional: She is oriented to person, place, and time a nd well-developed, well-nourished, and in no distress. Musculoskeletal: Right lower leg: She exhibits tenderness. She exhibits no bernardo ny tenderness, no swelling, no deformity and no laceration. No edema. Legs: Neurological: She is alert and oriented to person, place, an d time. Gait normal. Skin: Skin is warm and dry. No rash noted. There is erythema . Nursing note and vitals reviewed. ASSESSMENT/PLAN: 1. Superficial skin infection - ICD9: 686.9, ICD10: L08.9 - Begin treatment with Cephalaxin (Keflex) - No lymphangetic streaking, this was defined for patient to watch for and to seek medical care immediately if appears - CEPHALEXIN 500 MG CAPSULE - nonstick pad applied and wrapped with JOSE wrap. Patient gi karime wound care instructions. Change nonstick pad and rewrap daily or if it becomes wet or dirty. 2. Blood blister - ICD9: 919.2, ICD10: T14.8XXA - nonstick pad applied and wrapped with JOSE wrap. Patient gi karime wound care instructions. Change nonstick pad and rewrap daily or if it becomes wet or dirty. - Follow-up with your PCP in 3-5 days if symptoms have not i mproved or sooner if symptoms worsen - Discussed red flags and need for immediate medical evaluat ion if any occur. - Discussed supportive care treatment with fluids, rest and analgesia. - Discussed expected course of illness Delaney eBth APRN.DAKOTA enciso on 2019-03-22 CNOV Office Visit ([facility]) Normal 03-22-19 20 [place] ANEL Mcelroy ([id number]) 1935 [place] Date Time Provider Department ([id number]) 03/22/19 2:30 PM DELANEY BETH (DAKOTA) [facility] During your visit today, we recorded the following informati on about you: Temperature Pulse Respiration Blood pressure 98 degrees 76/minute 18/minute 128/82 Weight 67.7 kg Delaney Beth APRN.CNP 03/22/2019 2:59 PM Signed Subjective HPI Anel Espino is a 83 year old female who presents with a blood blister on her right lower leg for one week. She fell in her y johann a week ago and hit her leg on some stones. She has had a large blood blister si nce. It is not painful. Review of Systems Constitutional: Negative. Negative for fever. Musculoskeletal: Positive for falls. Negative for joint pain . See HPI Skin: Negative for rash. See HPI BP 128/82 Pulse 76 Temp 36.7 ?C (98 ?F) (Tympanic) Res p 18 Wt 67.7 kg (149 lb 3.2 oz) BMI 22.69 kg/m? PAST MEDICAL HISTORY Diagnosis Date - ABNORMAL LIVER FUNCTION STUDY 01/13/2007 - Anemia, unspecified 01/14/2007 - Basal cell carcinoma 09/25/2011 Superior umbilicus and left posterior calf, Sailaja Suárez.Will follow annually every year, Due September 2012. 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 Dr. Jimenez. Had s yanira Huff - Unspecified asthma(493.90) - Unspecified constipation - Uses hearing aid 10/31/2017 forgot to wear today PAST SURGICAL HISTORY Procedure Laterality Date - COLONOSCOP W/ OR W/O BRSH SPEC 10/23/2018 Colonoscopy - COLONOSCOPY W/BX 12/13/09 - EGD W/O OR W/BRUSH/WASH 10/23/2018 EGD - INCISION EARDRUM,ASPIR,GEN ANESTH Myringotomy/tubes - MASTOIDECTOMY Left age 11 - PAST SURGICAL HISTORY OF cholestetoma bilat. ears x 6 - PAST SURGICAL HISTORY OF breast, milk glands removed - PAST SURGICAL HISTORY OF gallbladder - PAST SURGICAL HISTORY OF 06/2008 Lumbar Laminectomy - [facility] - PAST SURGICAL HISTORY OF squamous cell removal - right thigh [place] - REMOVAL OF OVARY(S) 09/2008 Oophorectomy - [facility] - RIGHT HEART CATHETERIZATION 2005,2006 Cardiac cath, R heart - TOTAL ABDOM HYSTERECTOMY Hysterectomy, CHIRAG ALLERGIES Ambien [Zolpidem]; Gabapentin; Sulfa (Sulfonamide Antibiotics) MEDICATIONS oxyCODONE-acetaminophen (PERCOCET) 10-325 mg tablet Take 1 t ablet by mouth twice daily as needed for up to 30 days. as needed Do not start before March 18, 2019. hydrALAZINE (APRESOLINE) 10 mg tablet Take 1 tab let by mouth four times daily as needed. For systolic blood pressure over 159 atorvastatin (LIPITOR) 10 mg tablet Take 1 tablet by mouth o nce daily. donepezil (ARICEPT) 5 mg tablet Take 1 tablet by mouth daily at bedtime. clopidogrel (PLAVIX) 75 mg tablet Take 1 tablet by mouth onc e daily. carvedilol (COREG) 3.125 mg tablet Take 1 tablet by mouth tw ice daily. polyethylene glycol 3350 (MIRALAX, GLYCOLAX) 17 gram/dose powder Take one (1) bottle, as instructed for colonoscopy prep. bisacodyl EC (DULCOLAX, BISA CODYL,) 5 mg EC tablet Take two (2) tablets, at the designated times, as explained on the instruction sheet prov ided. PHENYLephrine 0.25 % suppository 1 Suppository by RECTAL r oute twice daily. hydrocortisone (ANUSOL-HC) 2.5 % rectal cream 1 applicatio n by RECTAL route twice daily as needed. triamcinolone acetonide (KENALOG) 0.1 % cream Ap ply 1 application to affected area twice daily as needed. For eczematous rash on extremiti es and torso albuterol HFA (PROVENTIL HFA, VENTOLIN HFA) 90 m cg/actuation inhaler Inhale 2 Puffs as instructed every 6 hours as needed. albuterol (PROVENTIL) 2.5 mg /3 mL (0.083 %) nebulizer solution Use 3 mL via nebulizer three times daily as needed. OVER 5-15 MINUTES. FO R WHEEZING AND SHORTNESS OF BREATH. TRIAMCINOLONE ACETONIDE TOPICAL Apply to affected area. COMPOUNDED PRESCRIPTION Nebulizer for home use. Diagnosis: E mphysema, COPD exacerbation. Lifetime use. Blood Pressure Cuff - Home Use BLOOD PRESSURE CUFF FOR FARHAN E USE. DX: LABILE BLOOD PRESSURE R09.89 Xjybokngotu-Kkcautztg-Ftj C-Mn (GLUCOSAM INE CHONDROITIN MAXSTR) 500-400 mg cap Take 1 capsule by mouth once daily. GUAIFENESIN ORAL Take by mouth. FAMILY HISTORY Problem Relation Age of Onset - Heart Father - other (ibs) Brother - Heart Paternal Grandmother - Heart Paternal Grandfather Social History Tobacco Use - Smoking status: Former Smoker Packs/day: 1.00 Years: 25.00 Pack years: 25.00 Types: Cigarettes Start date: 12/04/2016 Last attempt to quit: 11/14/2017 Years since quittin.3 - Smokeless tobacco: Never Used - Tobacco comment: Down to half PPD; quit after became ill a nd fell Substance Use Topics - Alcohol use: Yes Alcohol/week: 17.5 standard drinks Types: 7 Glasses of Wine (5oz) per week - Drug use: No Objective Physical Exam Constitutional: She is oriented to perso n, place, and time and well-developed, well-nourished, and in no distress. Musculoskeletal: Right lower leg: She exhibits tenderness. She exhibits no bernardo ny tenderness, no swelling, no deformity and no laceration. No edema. Legs: Neurological: She is alert and oriented to person, place, an d time. Gait normal. Skin: Skin is warm and dry. No rash noted. There is erythema . Nursing note and vitals reviewed. ASSESSMENT/PLAN: 1. Superficial skin infection - ICD9: 686.9, ICD10: L08.9 - Begin treatment with Cephalaxin (Keflex) - No lymphangetic streaking, this was defined fo r patient to watch for and to seek medical care immediately if appears - CEPHALEXIN 500 MG CAPSULE - nonstick pad applied and wrapped with JOSE wrap. Patient gi karime wound care instructions. Change nonstick pad and rewrap daily or if it becomes wet or dirty. 2. Blood blister - ICD9: 919.2, ICD10: T14.8XXA - nonstick pad applied and wrapped with JOSE wrap. Patient gi karime wound care instructions. Change nonstick pad and rewrap daily or if it becomes wet or dirty. - Follow-up with your PCP in 3-5 days if symptom s have not improved or sooner if symptoms worsen - Discussed red flags and need for immediate med ical evaluation if any occur. - Discussed supportive care treatment with fluids, rest and analgesia. - Discussed expected course of illness DEO Mai APRN.CNP 03/22/2019 2:43 PM Addendum ASSESSMENT/PLAN: 1. Superficial skin infection - ICD9: 686.9, ICD10: L08.9 - Begin treatment with Cephalaxin (Keflex) - No lymphangetic streaking, this was defined fo r patient to watch for and to seek medical care immediately if appears - CEPHALEXIN 500 MG CAPSULE - nonstick pad applied and wrapped with JOSE wrap. Patient gi karime wound care instructions. Change nonstick pad and rewrap daily or if it becomes wet or dirty. - Follow-up with your PCP in 3-5 days if symptom s have not improved or sooner if symptoms worsen - Discussed red flags and need for immediate med ical evaluation if any occur. - Discussed supportive care treatment with fluids, rest and analgesia. - Discussed expected course of illness Delaney Beth APRN.CNP Referring Provider: SELF [[id number]] Allergies As of Date: 03/22/2019 Noted Allergy Reaction AMBIEN (ZOLPIDEM) 12/28/2012 14 - Other: See Comments Comments: Hangover effect/body aches GABAPENTIN 07/18/2014 14 - Other: See Comments Comments: states that made me crazy; tremor and made her f orgetful SULFA (SULFONAMIDE ANTIBIOTICS) 08/07/2006 4 - Hives Date Reviewed: 03/22/2019 Reviewed by: Delaney ([facility]) Kirit - Fully Assessed Reason for Visit: sore on right morelos [Other] Cmt: fell 1 week ago Primary Visit Diagnosis:Superficial skin infection [L08.9] Other Visit Diagnosis:Blood blister [T14.8XXA] Order(s):cephALEXin (KEFLEX) 500 mg caps uleTake 1 capsule by mouth twice daily for 10 days.Disp: 20 capsuleRfl: 0 Prescriptions as of 03/22/2019 Sig: OXYCODONE-ACETAMINOPHEN 10 MG* Take 1 tablet by mouth twice * HYDRALAZINE 10 MG TABLET Take 1 tablet by mouth four t* ATORVASTATIN 10 MG TABLET Take 1 tablet by mouth once d* DONEPEZIL 5 MG TABLET Take 1 tablet by mouth daily * CLOPIDOGREL 75 MG TABLET Take 1 tablet by mouth once d* CARVEDILOL 3.125 MG TABLET Take 1 tablet by mouth twice * POLYETHYLENE GLYCOL 3350 17 G* Take one (1) bottle, as instr * BISACODYL 5 MG TABLET,DELAYED* Take two (2) tablets, at the * PHENYLEPHRINE 0.25 % RECTAL S* 1 Suppository by RECTAL route * HYDROCORTISONE 2.5 % TOPICAL * 1 application by RECTAL route * TRIAMCINOLONE ACETONIDE 0.1 %* Apply 1 application to affect * ALBUTEROL SULFATE HFA 90 MCG/* Inhale 2 Puffs as instructed * ALBUTEROL SULFATE 2.5 MG/3 ML* Use 3 mL via nebulizer three * TRIAMCINOLONE ACETONIDE TOPIC* Apply to affected area. COMPOUNDED PRESCRIPTION Nebulizer for home use. Diagn* COMPOUNDED PRESCRIPTION BLOOD PRESSURE CUFF FOR HOME * YIFNBJGGAQV-DUEBBUGBK-RCE C-M* Take 1 capsule by mouth once * GUAIFENESIN ORAL Take by mouth. CEPHALEXIN 500 MG CAPSULE Take 1 capsule by mouth twice* Problem List As Of Date 03/22/2019 Noted Resolved Coronary atherosclerosis [I25.10] More... COPD (chronic obstructive pulmonary disease) (H* More... Unspecified Asthma [J45.909] More... Nonspecific abnormal results of liver function *01/13/2007 0 11/11/2011 CONSTIPATION NOS [K59.00] 01/13/2007 Mixed hyperlipidemia [E78.2] 04/09/2007 More... More... Former smoker [Z87.891] 11/16/2009 Spinal stenosis [M48.00] 11/16/2009 More... More... More... Insomnia [G47.00] 11/11/2011 More... Hearing loss [H91.90] 09/07/2014 Cerebrovascular accident (CVA) (HCC) [I63.9] 12/12/2015 Subdural hematoma (HCC) [S06.5X9A] 12/16/2016 Depression [F32.9] 05/01/2017 Uses hearing aid [Z97.4] 10/31/2017 More... Vascular dementia, uncomplicated [F01.50] 12/05/2017 More... Fall with injury [W19.XXXA] 01/01/2018 More... External otitis of right ear [H60.91] 01/01/2018 More... HTN (hypertension) [I10] 01/01/2018 More... DJD (degenerative joint disease) [M19.90] 01/01/2018 More... Chronic pain syndrome [G89.4] 01/01/2018 More... Other instructions from your clinician: ASSESSMENT/PLAN: 1. Superficial skin infection - ICD9: 686.9, ICD10: L08.9 - Begin treatment with Cephalaxin (Keflex) - No lymphangetic streaking, this was defined for patient to watch for and to seek medical care immediately if appears - CEPHALEXIN 500 MG CAPSULE - nonstick pad applied and wrapped with JOSE wrap. Patient gi karime wound care instructions. Change nonstick pad and rewrap daily or if it becomes wet or dirty. - Follow-up with your PCP in 3-5 days if symptoms have not i mproved or sooner if symptoms worsen - Discussed red flags and need for immediate medical evaluat ion if any occur. - Discussed supportive care treatment with fluids, rest and analgesia. - Discussed expected course of illness Delaney Beth APRN.FEED RESEARCH AIDE Prescriptions ordered this encounter Disp Refills Start End CEPHALEXIN 500 MG CAPSULE 20 c* 0 03/22/2019 04/01/2019 Route: ORAL Sig: Take 1 capsule by mouth twice daily for 10 days. Disposition: Return in about 1 week (around 03/29/2019) for w ound recheck. Follow-up and Disposition History Recorded Encounter Status:Closed by DELANEY BETH on 03/22/19 progress on 2019-02 PROGRESS HNO ID: [id number] Normal 03-08-[address] [facility] Author: Sriram Valdez [place] ([id number]) Service: ? Author Type: Physician Type: Progress Notes Filed: 04/05/2019 12:48 AM Note Text: No chief complaint on file. SUBJECTIVE: Anel Espino is a 83 year old year old lady here today fo r appointment for review of medical conditions--elevated BP. Reviewed that does only take 1 pain pill some days. 02/09 correct but then next RX for 02/20 and 03/22/19 not lissa d anymore. Tried to fill the 02/20 RX but had just filled at RX 02/09 an d so would be too early to fill this one and would not be able to fill aft er 03/06 (too late past 14 days). Large bruise on right morelos. [facility] and [facility] grass and slipp ed. Sthinking already--was double size on Friday. Down by yesterday. no bleeding. Large echymosis still about 2cm by about 6cm and raised. Medication issue with regards to refills and dates on RX. 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 Was not trying to get 02/20 R X filled early relative to date filled the January RX, but because of date on RX to try to avoid RX expiring but still did not work out. Hydralazine only taken if over 159. Is on carvedilol (she did not remember being on it but is on her med list on 3X5 card). Has validated cuff. no signs of GIB. No signs COPD exacerbation PAST MEDICAL HISTORY Diagnosis Date - ABNORMAL LIVER FUNCTION STUDY 01/13/2007 - Anemia, unspecified 01/14/2007 - Basal cell carcinoma 09/25/2011 Superior umbilicus and left posterior calf, Sialaja Kan.Will follow annually every year, Due September 2012. 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 Dr. Jimenez. Had s een Dr. Huff - Unspecified asthma(493.90) - Unspecified constipation - Uses hearing aid 10/31/2017 forgot to wear today Current Outpatient Medications Medication Sig - [START ON 03/18/2019] oxyCODONE-acetaminophen (PERCOCET) 10- 325 mg tablet Take 1 tablet by mouth twice daily as needed for up to 30 da ys. as needed Do not start before March 18, 2019. - atorvastatin (LIPITOR) 10 mg tablet Take 1 tablet by mouth once daily. - donepezil (ARICEPT) 5 mg tablet Take 1 tablet by mouth cliff ly at bedtime. - clopidogrel (PLAVIX) 75 mg tablet Take 1 tablet by mouth o nce daily. - carvedilol (COREG) 3.125 mg tablet Take 1 tablet by mouth twice daily. - bisacodyl EC (DULCOLAX, BISACODYL,) 5 mg EC tablet Take tw o (2) tablets, at the designated times, as explained on the instruction she et provided. - hydrocortisone (ANUSOL-HC) 2.5 % rectal cream 1 applicatio n by RECTAL route twice daily as needed. - triamcinolone acetonide (KENALOG) 0.1 % cream Apply 1 appl ication to affected area twice daily as needed. For eczematous rash on extremities and torso - albuterol HFA (PROVENTIL HFA, VENTOLIN HFA) 90 mcg/actuati on inhaler Inhale 2 Puffs as instructed every 6 hours as needed. - albuterol (PROVENTIL) 2.5 mg /3 mL (0.083 %) nebulizer abigail ution Use 3 mL via nebulizer three times daily as needed. OVER 5-15 MINUTES . FOR WHEEZING AND SHORTNESS OF BREATH. - TRIAMCINOLONE ACETONIDE TOPICAL Apply to affected area. - COMPOUNDED PRESCRIPTION Nebulizer for home use. Diagnosis: Emphysema, COPD exacerbation. Lifetime use. - Blood Pressure Cuff - Home Use BLOOD PRESSURE CUFF FOR FARHAN E USE. DX: LABILE BLOOD PRESSURE R09.89 - Mtitbrluevp-Elnhhwiet-Eim C-Mn (GLUCOSAMINE CHONDROITIN MA XSTR) 500-400 mg cap Take 1 capsule by mouth once daily. - GUAIFENESIN ORAL Take by mouth. - hydrALAZINE (APRESOLINE) 10 mg tablet Take 1 tablet by duncan th four times daily as needed. For systolic blood pressure over 159 - polyethylene glycol 3350 (MIRALAX, GLYCOLAX) 17 gram/dose powder Take one (1) bottle, as instructed for colonoscopy prep. - PHENYLephrine 0.25 % suppository 1 Suppository by RECTAL r oute twice daily. No current facility-administered medications for this visit. OBJECTIVE: BP 96/58 Pulse 76 Resp 20 Wt 65.3 kg (144 lb) BMI 21 .90 kg/m? Patient is alert, oriented times 3, no apparent distress, af fect is bright, reactive. Last 5 Encounter BP Readings: Date: BP: 03/08/2019 96/58 01/21/2019 126/84 10/16/2018 145/74 10/16/2018 110/62 10/13/2018 105/69 Last 5 Encounter Wt Readings: Date: Wt: 03/08/2019 65.3 kg (144 lb) 01/21/2019 66.2 kg (146 lb) 10/16/2018 68.5 kg (151 lb 0.2 oz) 10/16/2018 68 kg (150 lb) 10/13/2018 68.5 kg (151 lb) Heart: Regular rate, rhythm, no murmurs, gallops, rubs. Lungs: Clear to auscultation, bilaterally, breathing non lab ored. Ext: No cyanosis, clubbing, or edema. large hematoma right s hin (see HPI for dimensions)--still very tender. Gait antalgic, Component Latest Ref Rng AND Units 07/08/2018 09/10/2018201810/15/2018 10/23/2018 02/01/2019 Protein, Total 6.3 - 8.0 g/dL 6.2 (L) 6.1 (L) Albumin 3.9 - 4.9 g/dL 3.9 4.1 Calcium 8.5 - 10.2 mg/dL 9.4 9.3 Bilirubin, Total 0.2 - 1.3 mg/dL 0.3 0.3 Alkaline Phosphatase 34 - 123 U/L 119 73 AST 13 - 35 U/L 171 (H) 23 Glucose 74 - 99 mg/dL 90 96 BUN 7 - 21 mg/dL 14 17 Creatinine 0.58 - 0.96 mg/dL 1.02 (H) 0.94 Sodium 136 - 144 mmol/L 142 141 Potassium 3.7 - 5.1 mmol/L 4.6 4.7 Chloride 97 - 105 mmol/L 103 102 CO2 22 - 30 mmol/L 29 30 Anion Gap 9 - 18 mmol/L 10 9 ALT 7 - 38 U/L 120 (H) 12 eGFR- >60 >60 eGFR-All Other Races . 52 57 WBC 3.70 - 11.00 k/uL 4.75 6.43 6.54 RBC 3.90 - 5.20 m/uL 4.57 4.58 4.55 Hemoglobin 11.5 - 15.5 g/dL 12.4 12.4 12.1 Hematocrit 36.0 - 46.0 % 40.9 40.2 41.2 MCV 80.0 - 100.0 fL 89.5 87.8 90.5 MCH 26.0 - 34.0 pG 27.1 27.1 26.6 MCHC 30.5 - 36.0 g/dL 30.3 (L) 30.8 29.4 (L) RDW-CV 11.5 - 15.0 % 13.5 14.1 13.5 Platelet Count 150 - 400 k/uL 262 285 302 MPV 9.0 - 12.7 fL 10.2 10.1 10.5 Absolute nRBC <0.01 k/uL <0.01 0.01 (H) <0.01 Cholesterol, Total <200 mg/dL 184 Triglyceride <150 mg/dL 70 HDL Cholesterol >39 mg/dL 82 LDL Cholesterol <100 mg/dL 88 Non HDL Cholesterol <130 mg/dL 102 Fasting Time hrs 10 VLDL Cholesterol <30 mg/dL 14 TC:HDL Ratio <5.10 2.24 LDL:HDL Ratio <2.54 1.07 Total Cholesterol, Nonfasting <200 mg/dL 207 (H) Triglycerides, Nonfasting <150 mg/dL 82 HDL Cholesterol, Nonfasting >39 mg/dL 80 LDL Cholesterol, Nonfasting <100 mg/dL 111 (H) Non HDL Cholesterol, Nonfasting <130 mg/dL 127 VLDL Cholesterol, Nonfasting <30 mg/dL 16 Total Chol/HDL Ratio, Nonfasting <5.10 mg/dL 2.59 LDL/HDL Ratio, Nonfasting <2.54 mg/dL 1.39 Lactose, Fasting 74 - 99 mg/dL 81 Lactose, 30 min mg/dL 117 Lactose, 60 min mg/dL 78 Lactose, 90 min mg/dL 64 Lactose, 120 min mg/dL 76 Occult Blood, Stool Negative Positive (A) 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 . . . TSH 0.270 - 4.200 uU/mL 1.560 ASSESSMENT AND PLAN: Encounter Diagnosis ICD-10-CM 1. Encounter for long-term current use of medication Z79.899 TOX SCREEN ROUT UR PAIN PANEL, UR QUANT COMP METABOLIC PANEL CBC 2. Leg pain, right M79.604 oxyCODONE-acetaminophen (PERCOCET ) 10-325 mg tablet 3. Pain in the muscles, right leg M79.10 oxyCODONE-acetamino phen (PERCOCET) 10-325 mg tablet 4. Spinal stenosis of lumbar region, unspecified whether yoselin rogenic claudication present M48.061 oxyCODONE-acetaminophen (PERCOC ET) 10-325 mg tablet Percocet more effective than Hydrocodone. Will resume at BID . 5. Mixed hyperlipidemia E78.2 6. Essential hypertension I10 COMP METABOLIC PANEL CBC 7. COPD, frequent exacerbations (HCC) J44.1 Above issues addressed with patient. Patient involved in shared decision making for management of medical issues. History and medications reviewed. Epic updated as needed Refills and/or prescriptions taken care of and meds adjusted as indicated after reviewed history, exam and labs. Health Maintenance reviewed. Updated record and/or ordered t ests as recorded. Encouraged on efforts at healthy diet and regular exercise a nd adequate sleep. Stable with control of pain though still has pain. Meds help decrease pain so able to do some ADLs. No signs of diversion or abuse of m edication(s); no adverse effects. Continue present management. PDMP websit e checked and validated . All prescriptions have been APPROPRIATELY filled . No suspicious activity was identified. Though noted that PDMP n ot showing recent med refills.04/05/2019 by Sriram Valdez MD Will try to get med refill dates better lined up to when needs to fill RX, espec ially with new guidelines for prescribing pain meds ,etc. Discussed management of hematoma. Needs to avoid bumping it or scraping it to prevent a significant bleed since on Plavix. Further e valuation and treatment as indicated. Follow up as needed. The majority of the visit was spent counseling and/or coordi nating care for the patient. Hvyi-xj-ynso time was at least 30 minutes. Sriram Valdez MD cnov on 2019-03-08 CNOV Office Visit (INTMWS) Normal 03-08-20 19 [facility] ANEL ESPINO ([id number]) 1935 [place] Date Time Provider Department ([id number]) 03/08/19 11:00 AM SRIRAM VALDEZ INTMWS During your visit today, we recorded the following informati on about you: Pulse Respiration Blood pressure Weight 76/minute 20/minute 96/58 65.3 kg Sriram Valdez MD 04/05/2019 12:48 AM Signed No chief complaint on file. SUBJECTIVE: Anel Espino is a 83 year old year old lady h ere today for appointment for review of medical conditions--elevated BP. Reviewed that does only take 1 pain pill some days. 02/09 correct but then next RX for 02/20 and 03/22/19 not lissa d anymore. Tried to fill the 02/20 RX but had just filled at RX 02/09 and so would be too early to fill this one and would not be able to fill a fter 03/06 (too late past 14 days). Large bruise on right morelos. Was taking trash out to dumpster and was icy grass and slipp ed. Sthinking already--was double size on Friday. Down by yesterday. n o bleeding. Large echymosis still about 2cm by about 6cm and raised. Medication issue with regards to refills and dates on RX. Si nce was not needing to take pain med daily for a while, dates of p ick up and when needed filled got thrown with given issue with expiration date of controlled meds like narcotics. Was not trying to get 02/20 RX filled early rela tive to date filled the January RX, but because of date on R X to try to avoid RX expiring but still did not work out. Hydralazine only taken if over 159. Is on carvedilol (she did not remember being on it but is on her med list on 3X5 card). Has validated cuff. no signs of GIB. No signs COPD exacerbation PAST MEDICAL HISTORY Diagnosis Date - ABNORMAL LIVER FUNCTION STUDY 01/13/2007 - Anemia, unspecified 01/14/2007 - Basal cell carcinoma 09/25/2011 Superior umbilicus and left posterior calf, Dr Sommer gregg [place].Will follow annually every year, Due September 2012. 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 Dr. Jimenez. Had s een Dr. Huff - Unspecified asthma(493.90) - Unspecified constipation - Uses hearing aid 10/31/2017 forgot to wear today Current Outpatient Medications Medication Sig - [START ON 03/18/2019] oxyCODONE-acetamin ophen (PERCOCET) 10-325 mg tablet Take 1 tablet by mouth twice daily as needed for up to 30 days. as needed Do not start before March 18, 2019. - atorvastatin (LIPITOR) 10 mg tablet Take 1 tablet by mouth once daily. - donepezil (ARICEPT) 5 mg tablet Take 1 tablet by mouth cliff ly at bedtime. - clopidogrel (PLAVIX) 75 mg tablet Take 1 tablet by mouth o nce daily. - carvedilol (COREG) 3.125 mg tablet Take 1 tablet by mouth twice daily. - bisacodyl EC (DULCOLAX, BISACODYL,) 5 mg EC ta blet Take two (2) tablets, at the designated times, as explained on the instruction sheet provided. - hydrocortisone (ANUSOL-HC) 2.5 % rectal cream 1 application by RECTAL route twice daily as needed. - triamcinolone acetonide (K ENALOG) 0.1 % cream Apply 1 application to affected area twice daily as needed. For eczematous rash on extremiti es and torso - albuterol HFA (PROVENTIL H FA, VENTOLIN HFA) 90 mcg/actuation inhaler Inhale 2 Puffs as instructed every 6 hours as needed. - albuterol (PROVENTIL) 2.5 mg /3 mL (0. 083 %) nebulizer solution Use 3 mL via nebulizer three times daily as needed. OVER 5-15 MINUTES. FO R WHEEZING AND SHORTNESS OF BREATH. - TRIAMCINOLONE ACETONIDE TOPICAL Apply to affected area. - COMPOUNDED PRESCRIPTION Nebulizer for home use. Diag nosis: Emphysema, COPD exacerbation. Lifetime use. - Blood Pressure Cuff - Home Use BLOOD PRESSURE CUFF FOR HOME USE. DX: LABILE BLOOD PRESSURE R09.89 - Gamrmvufhjw-Lzlxtdrph-Bly C-Mn (GLUCOSAMINE CHONDROI TIN MAXSTR) 500-400 mg cap Take 1 capsule by mouth once daily. - GUAIFENESIN ORAL Take by mouth. - hydrALAZINE (APRESOLINE) 1 0 mg tablet Take 1 tablet by mouth four times daily as needed. For systolic blood pressure over 159 - polyethylene glycol 3350 ( MIRALAX, GLYCOLAX) 17 gram/dose powder Take one (1) bottle, as instructed for colonoscopy prep. - PHENYLephrine 0.25 % suppository 1 Suppository by RECTAL route twice daily. No current facility-administered medications for this visit. OBJECTIVE: BP 96/58 Pulse 76 Resp 20 Wt 65.3 kg (144 lb) BMI 21 .90 kg/m? Patient is alert, oriented times 3, no apparent distress, affect is bright, reactive. Last 5 Encounter BP Readings: Date: BP: 03/08/2019 96/58 01/21/2019 126/84 10/16/2018 145/74 10/16/2018 110/62 10/13/2018 105/69 Last 5 Encounter Wt Readings: Date: Wt: 03/08/2019 65.3 kg (144 lb) 01/21/2019 66.2 kg (146 lb) 10/16/2018 68.5 kg (151 lb 0.2 oz) 10/16/2018 68 kg (150 lb) 10/13/2018 68.5 kg (151 lb) Heart: Regular rate, rhythm, no murmurs, gallops, rubs. Lungs: Clear to auscultation, bilaterally, breathing non lab ored. Ext: No cyanosis, clubbing, or edema. large hematoma r ight morelos (see HPI for dimensions)--still very tender. Gait antalgic, Component Latest Ref Rng AND Units 07/08/2018 09/10/2018201810/15/2018 10/23/2018 02/01/2019 Protein, Total 6.3 - 8.0 g/dL 6.2 (L) 6.1 (L) Albumin 3.9 - 4.9 g/dL 3.9 4.1 Calcium 8.5 - 10.2 mg/dL 9.4 9.3 Bilirubin, Total 0.2 - 1.3 mg/dL 0.3 0.3 Alkaline Phosphatase 34 - 123 U/L 119 73 AST 13 - 35 U/L 171 (H) 23 Glucose 74 - 99 mg/dL 90 96 BUN 7 - 21 mg/dL 14 17 Creatinine 0.58 - 0.96 mg/dL 1.02 (H) 0.94 Sodium 136 - 144 mmol/L 142 141 Potassium 3.7 - 5.1 mmol/L 4.6 4.7 Chloride 97 - 105 mmol/L 103 102 CO2 22 - 30 mmol/L 29 30 Anion Gap 9 - 18 mmol/L 10 9 ALT 7 - 38 U/L 120 (H) 12 eGFR- >60 >60 eGFR-All Other Races . 52 57 WBC 3.70 - 11.00 k/uL 4.75 6.43 6.54 RBC 3.90 - 5.20 m/uL 4.57 4.58 4.55 Hemoglobin 11.5 - 15.5 g/dL 12.4 12.4 12.1 Hematocrit 36.0 - 46.0 % 40.9 40.2 41.2 MCV 80.0 - 100.0 fL 89.5 87.8 90.5 MCH 26.0 - 34.0 pG 27.1 27.1 26.6 MCHC 30.5 - 36.0 g/dL 30.3 (L) 30.8 29.4 (L) RDW-CV 11.5 - 15.0 % 13.5 14.1 13.5 Platelet Count 150 - 400 k/uL 262 285 302 MPV 9.0 - 12.7 fL 10.2 10.1 10.5 Absolute nRBC <0.01 k/uL <0.01 0.01 (H) <0.01 Cholesterol, Total <200 mg/dL 184 Triglyceride <150 mg/dL 70 HDL Cholesterol >39 mg/dL 82 LDL Cholesterol <100 mg/dL 88 Non HDL Cholesterol <130 mg/dL 102 Fasting Time hrs 10 VLDL Cholesterol <30 mg/dL 14 TC:HDL Ratio <5.10 2.24 LDL:HDL Ratio <2.54 1.07 Total Cholesterol, Nonfasting <200 mg/dL 207 (H) Triglycerides, Nonfasting <150 mg/dL 82 HDL Cholesterol, Nonfasting >39 mg/dL 80 LDL Cholesterol, Nonfasting <100 mg/dL 111 (H) Non HDL Cholesterol, Nonfasting <130 mg/dL 127 VLDL Cholesterol, Nonfasting <30 mg/dL 16 Total Chol/HDL Ratio, Nonfasting <5.10 mg/dL 2.59 LDL/HDL Ratio, Nonfasting <2.54 mg/dL 1.39 Lactose, Fasting 74 - 99 mg/dL 81 Lactose, 30 min mg/dL 117 Lactose, 60 min mg/dL 78 Lactose, 90 min mg/dL 64 Lactose, 120 min mg/dL 76 Occult Blood, Stool Negative Positive (A) 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 . . . TSH 0.270 - 4.200 uU/mL 1.560 ASSESSMENT AND PLAN: Encounter Diagnosis ICD-10-CM 1. Encounter for long-term c urrent use of medication Z79.899 TOX SCREEN ROUT UR PAIN PANEL, UR QUANT COMP METABOLIC PANEL CBC 2. Leg pain, right M79.604 oxyCODONE-jose taminophen (PERCOCET) 10-325 mg tablet 3. Pain in the muscles, right leg M79.10 oxyCODONE-acetami nophen (PERCOCET) 10-325 mg tablet 4. Spinal stenosis of lumbar region, unspecified whether yoselin rogenic claudication present M48.061 oxyCODONE-acetaminophen (PERCOC ET) 10-325 mg tablet Percocet more effective than Hydrocodone. Will resume at BID . 5. Mixed hyperlipidemia E78.2 6. Essential hypertension I10 COMP METABOLIC PANEL CBC 7. COPD, frequent exacerbations (HCC) J44.1 Above issues addressed with patient. Patient involved in shared decision making for managem ent of medical issues. History and medications reviewed. Epic updated as needed Refills and/or prescriptions taken care of and meds adjusted as indicated after reviewed history, exam and labs. Health Maintenance reviewed. Updated record and/ or ordered tests as recorded. Encouraged on efforts at healthy diet an d regular exercise and adequate sleep. Stable with control of pain though still has jackelin n. Meds help decrease pain so able to do some ADLs. No signs of diversion or abuse of medi cation(s); no adverse effects. Continue present management. PDMP website c hecked and validated . All prescriptions have been APPROPRIATELY fill ed. No suspicious activity was identified. Though noted that PDMP not showing recent med refills.04/05/2019 by Sriram Valdez MD Will try to get med refill dates better lined up to when needs to fill RX, especially w ith new guidelines for prescribing pain meds ,etc. Discussed management of hematoma. Needs to avoid bumping it or scraping it to prevent a significant bleed since on Plavix. Fur ther evaluation and treatment as indicated. Follow up as needed. The majority of the visit wa s spent counseling and/or coordinating care for the patient. Svpl-gl-ikyg time was at least 30 minutes. Sriram Valdez MD Referring Provider: SELF [[id number]] Allergies As of Date: 03/08/2019 Noted Allergy Reaction AMBIEN (ZOLPIDEM) 12/28/2012 14 - Other: See Comments Comments: Hangover effect/body aches GABAPENTIN 07/18/2014 14 - Other: See Comments Comments: states that made me crazy; tremor and made her f orgetful SULFA (SULFONAMIDE ANTIBIOTICS) 08/07/2006 4 - Hives Date Reviewed: 03/08/2019 Reviewed by: Suzette Lopez LPN - Fully Assessed Primary Visit Diagnosis:Leg pain, right [M79.604] Comment:Chronic pain plus now has large hematome on morelos from fall; gradually resolving Other Visit Diagnoses:Spinal stenosis of lumbar region, un specified whether neurogenic claudication present [M48.061] Comment:Percocet more effective than Hydrocodone. Will resume at BID. Hematoma of right lower extremity, sequela [S80.11XS] Pain in the muscles, right leg [M79.10] Mixed hyperlipidemia [E78.2] Essential hypertension [I10] COPD, frequent exacerbations (HCC) [J44.1] Encounter for long-term current use of medication [Z79.899] Order(s):TOX SCREEN ROUT UR [SQUTOX2] Order #: [id number] PAIN PANEL, UR QUANT [SQUQNTPP] Order #: [id number] oxyCODONE-acetaminophen (PERCOCET) 10-325 mg tabletTake 1 ta blet by mouth twice daily as needed for up to 30 days. as needed Do not start before March 18, 2019.Disp: 60 tabletRfl: 0 hydrALAZINE (APRESOLINE) 10 mg tabletTake 1 tablet by mouth four times daily as needed. For systolic blood pressure over 159D isp: 120 tabletRfl: 0 COMP METABOLIC PANEL [SQCMP] Order #: [id number] FUTURE CBC [SQCBC] Order #: [id number] FUTURE Prescriptions as of 03/08/2019 Sig: OXYCODONE-ACETAMINOPHEN 10 MG* Take 1 tablet by mouth twice * ATORVASTATIN 10 MG TABLET Take 1 tablet by mouth once d* DONEPEZIL 5 MG TABLET Take 1 tablet by mouth daily * CARVEDILOL 3.125 MG TABLET Take 1 tablet by mouth twice * X CLOPIDOGREL 75 MG TABLET Take 1 tablet by mouth once d* BISACODYL 5 MG TABLET,DELAYED* Take two (2) tablets, at the * HYDROCORTISONE 2.5 % TOPICAL * 1 application by RECTAL route * TRIAMCINOLONE ACETONIDE 0.1 %* Apply 1 application to affect * ALBUTEROL SULFATE HFA 90 MCG/* Inhale 2 Puffs as instructed * ALBUTEROL SULFATE 2.5 MG/3 ML* Use 3 mL via nebulizer three * TRIAMCINOLONE ACETONIDE TOPIC* Apply to affected area. COMPOUNDED PRESCRIPTION Nebulizer for home use. Diagn* COMPOUNDED PRESCRIPTION BLOOD PRESSURE CUFF FOR HOME * BWMGBHRASUN-LONVQWXZF-NIA C-M* Take 1 capsule by mouth once * GUAIFENESIN ORAL Take by mouth. HYDRALAZINE 10 MG TABLET Take 1 tablet by mouth four t* POLYETHYLENE GLYCOL 3350 17 G* Take one (1) bottle, as instr * PHENYLEPHRINE 0.25 % RECTAL S* 1 Suppository by RECTAL route * Medication notes this encounter AMITRIPTYLINE 75 MG TABLET >> Sriram Valdez MD 03/08/2019 12:15 PM not filled because of dates OXYCODONE-ACETAMINOPHEN 10 MG-325 MG TABLET >> Sriram Valdez MD 03/08/2019 12:15 PM not filled because of dates OXYCODONE-ACETAMINOPHEN 10 MG-325 MG TABLET >> Sriram Valdez MD 03/08/2019 12:15 PM not filled because of dates Problem List As Of Date 03/08/2019 Noted Resolved Coronary atherosclerosis [I25.10] More... COPD (chronic obstructive pulmonary disease) (H* More... Unspecified Asthma [J45.909] More... Nonspecific abnormal results of liver function *01/13/2007 0 11/11/2011 CONSTIPATION NOS [K59.00] 01/13/2007 Mixed hyperlipidemia [E78.2] 04/09/2007 More... More... Former smoker [Z87.891] 11/16/2009 Spinal stenosis [M48.00] 11/16/2009 More... More... More... Insomnia [G47.00] 11/11/2011 More... Hearing loss [H91.90] 09/07/2014 Cerebrovascular accident (CVA) (HCC) [I63.9] 12/12/2015 Subdural hematoma (HCC) [S06.5X9A] 12/16/2016 Depression [F32.9] 05/01/2017 Uses hearing aid [Z97.4] 10/31/2017 More... Vascular dementia, uncomplicated [F01.50] 12/05/2017 More... Fall with injury [W19.XXXA] 01/01/2018 More... External otitis of right ear [H60.91] 01/01/2018 More... HTN (hypertension) [I10] 01/01/2018 More... DJD (degenerative joint disease) [M19.90] 01/01/2018 More... Chronic pain syndrome [G89.4] 01/01/2018 More... Prescriptions ordered this encounter Disp Refills Start End OXYCODONE-ACETAMINOPHEN 10 MG-325 MG* 60 t* 0 03/18/201903/2019 Class: Print RX Route: ORAL Sig: Take 1 tablet by mouth twice daily as needed for up to 30 days. as needed Do not start before March 18, 2019. HYDRALAZINE 10 MG TABLET 120 * 0 03/08/2019 Class: Med Update Route: ORAL Sig: Take 1 tablet by mouth four times daily as needed. For systolic blood pressure over 159 Medications Discontinued During This Encounter amitriptyline (ELAVIL) 75 mg tablet 30 t* 5 03/05/201903/08 Cmt: fill this not previous script Route: ORAL Sig: Take 1 tablet by mouth daily at bedtime. Disc: Reason for discontinue is not on file. oxyCODONE-acetaminophen (PERCOCET) 1* 60 t* 0 03/22/201903/08 Class: Print RX Route: ORAL Sig: Take 1 tablet by mouth twice daily for 30 days. Disc: Reason for discontinue is not on file. oxyCODONE-acetaminophen (PERCOCET) 1* 60 t* 0 02/20/201902/15 Class: Print RX Route: ORAL Sig: Take 1 tablet by mouth twice daily for 30 days. Disc: Reason for discontinue is not on file. oxyCODONE-acetaminophen (PERCOCET) 1* 60 t* 0 02/08/2019 Class: Print RX Route: ORAL Sig: Take 1 tablet by mouth twice daily for 30 days. as need ed Disc: Reason for discontinue is not on file. omeprazole (PRILOSEC) 20 mg capsule 60 c* 0 12/16/20182018 Route: ORAL Sig: Take 2 capsules by mouth once daily. Patient not taking: Reported on 03/08/2019 Disc: Reason for discontinue is not on file. citalopram (CELEXA) 20 mg tablet 90 t* 3 10/16/2018 03/08/2019 Class: [employer] Route: ORAL Sig: Take 1 tablet by mouth once daily. Patient not taking: Reported on 01/21/2019 Disc: Reason for discontinue is not on file. hydrALAZINE (APRESOLINE) 10 mg tablet 120 * 0 01/27/2018 Route: ORAL Sig: Take 1 tablet by mouth four times daily as needed. For systolic blood pressure over 160 Patient not taking: Reported on 03/08/2019 Disc: Reason for discontinue is not on file. Follow-up and Disposition History Recorded Encounter Status:Closed by SRIRAM VALDEZ MD on 04/05/19 progress on 2019-02 PROGRESS HNO ID: [id number] Normal 03-05-[address] [facility] Author: Kimberly Shrestha Formerly [facility] ([id number]) Service: ? Author Type: Registered Nurse Type: Progress Notes Filed: 03/05/2019 7:02 PM Note Text: PRIMARY CARE COORDINATION DISCHARGE Patient has been identified by name and date of : Yes Patient discharged from Primary Care Coordination: YES Active Goals - Current status as of 03/05/2019 at 7:00 PM Most Recent - Address all appropriate HM and disease care gaps - Annual BMP - Blood Pressure < 130/80 126/84 (01/21/2019) - Confirm medication adherence of all prescribed medications and uses them correctly - Demonstrates proper inhaler technique - Improve Breathlessness Score - Tobacco cessation - Understands and follows DASH diet - Uses rescue inhaler at appropriate times - Weight mgmt/activity Goals met Decreased number of hospital admissions over a 6-12 month pe riod Appointment adherence (PCP and specialists) over 6-12 month period Patient demonstrates ability to set and achieve healthcare s elf-management goals Demonstrates engagement through active participation in self -care Goals met Patient knowledgeable and confident in contacting Health Car e Providers for questions or concerns: YES Reinforced with patient and/or caregiver that Primary Care C oordination may be reinitiated if a change in status warrants navigation readmission: YES Discussed with: Agree What was the Focus/Challenges addressed in Care Coordination ? Education on Chronic Disease Management Appropriate level of care options - Utilization Psychosocial needs Disposition: Follow up with PCP Care Team Tab - End: YES Kimberly Moreno RN Ambulatory Diploma Pharmacy Technician Internal Medicine [facility] cnptoutreach on 201 11-27-19 CNPTOUTREACH Patient Outreach (INTMWS) Normal 1 05-06-2018 Clifford ANEL Mcelroy ([id number]) 1935 F [place] Date Time Provider Department ([id number]) 03/05/19 KIMBERLY CAMARENA INTMWS During your visit today, we recorded the following informati on about you: Kimberly Shrestha RN 03/05/2019 7:02 PM Signed PRIMARY CARE COORDINATION DISCHARGE Patient has been identified by name and date of : Yes Patient discharged from Primary Care Coordination: YES Active Goals - Current status as of 03/05/2019 at 7:00 PM Most Recent - Address all appropriate HM and disease care gaps - Annual BMP - Blood Pressure < 130/80 126/84 (01/21/2019) - Confirm medication adherence of all prescribed medications and uses them correctly - Demonstrates proper inhaler technique - Improve Breathlessness Score - Tobacco cessation - Understands and follows DASH diet - Uses rescue inhaler at appropriate times - Weight mgmt/activity Goals met Decreased number of hospital admissions over a 6-12 month pe riod Appointment adherence (PCP and specialists) over 6-12 month period Patient demonstrates ability to set and achieve healthcare self-management goals Demonstrates engagement through active participation in self -care Goals met Patient knowledgeable and confident in contacting Health C are Providers for questions or concerns: YES Reinforced with patient and/or caregiver that Primary Care Coordination may be reinitiated if a change in status warrants navigation readmi ssion: YES Discussed with: Agree What was the Focus/Challenges addressed in Care Coordination ? Education on Chronic Disease Management Appropriate level of care options - Utilization Psychosocial needs Disposition: Follow up with PCP Care Team Tab - End: YES Kimberly Moreno RN Ambulatory Diploma Pharmacy Technician Internal Medicine [facility] Allergies As of Date: 03/05/2019 Noted Allergy Reaction JEFF (ZOLPIDEM) 12/28/2012 14 - Other: See Comments Comments: Hangover effect/body aches GABAPENTIN 07/18/2014 14 - Other: See Comments Comments: states that made me crazy; tremor and made her f orgetful SULFA (SULFONAMIDE ANTIBIOTICS) 08/07/2006 4 - Hives Date Reviewed: 02/12/2019 Reviewed by: Zakia Negron Ma - Fully Assessed Reason for Visit: PHMA/Care Gap Outreach [[id number]] Prescriptions as of 03/05/2019 Sig: AMITRIPTYLINE 75 MG TABLET Take 1 tablet by mouth daily * OXYCODONE-ACETAMINOPHEN 10 MG* Take 1 tablet by mouth twice * ATORVASTATIN 10 MG TABLET Take 1 tablet by mouth once d* OXYCODONE-ACETAMINOPHEN 10 MG* Take 1 tablet by mouth twice * OXYCODONE-ACETAMINOPHEN 10 MG* Take 1 tablet by mouth twice * OMEPRAZOLE 20 MG CAPSULE,MARY BETH* Take 2 capsules by mouth once * DONEPEZIL 5 MG TABLET Take 1 tablet by mouth daily * CLOPIDOGREL 75 MG TABLET Take 1 tablet by mouth once d* CITALOPRAM 20 MG TABLET Take 1 tablet by mouth once d* Patient not taking: Reported on 01/21/2019 CARVEDILOL 3.125 MG TABLET Take 1 tablet by mouth twice * POLYETHYLENE GLYCOL 3350 17 G* Take one (1) bottle, as instr * BISACODYL 5 MG TABLET,DELAYED* Take two (2) tablets, at the * PHENYLEPHRINE 0.25 % RECTAL S* 1 Suppository by RECTAL route * HYDROCORTISONE 2.5 % TOPICAL * 1 application by RECTAL route * TRIAMCINOLONE ACETONIDE 0.1 %* Apply 1 application to affect * HYDRALAZINE 10 MG TABLET Take 1 tablet by mouth four t* ALBUTEROL SULFATE HFA 90 MCG/* Inhale 2 Puffs as instructed * ALBUTEROL SULFATE 2.5 MG/3 ML* Use 3 mL via nebulizer three * TRIAMCINOLONE ACETONIDE TOPIC* Apply to affected area. COMPOUNDED PRESCRIPTION Nebulizer for home use. Diagn* COMPOUNDED PRESCRIPTION BLOOD PRESSURE CUFF FOR HOME * ADZFBQGJCWG-EKQFKARAE-HUB C-M* Take 1 capsule by mouth once * GUAIFENESIN ORAL Take by mouth. Problem List As Of Date 03/05/2019 Noted Resolved Coronary atherosclerosis [I25.10] More... COPD (chronic obstructive pulmonary disease) (H* More... Unspecified Asthma [J45.909] More... Nonspecific abnormal results of liver function *01/13/2007 0 11/11/2011 CONSTIPATION NOS [K59.00] 01/13/2007 Mixed hyperlipidemia [E78.2] 04/09/2007 More... More... Former smoker [Z87.891] 11/16/2009 Spinal stenosis [M48.00] 11/16/2009 More... More... More... Insomnia [G47.00] 11/11/2011 More... Hearing loss [H91.90] 09/07/2014 Cerebrovascular accident (CVA) (HCC) [I63.9] 12/12/2015 Subdural hematoma (HCC) [S06.5X9A] 12/16/2016 Depression [F32.9] 05/01/2017 Uses hearing aid [Z97.4] 10/31/2017 More... Vascular dementia, uncomplicated [F01.50] 12/05/2017 More... Fall with injury [W19.XXXA] 01/01/2018 More... External otitis of right ear [H60.91] 01/01/2018 More... HTN (hypertension) [I10] 01/01/2018 More... DJD (degenerative joint disease) [M19.90] 01/01/2018 More... Chronic pain syndrome [G89.4] 01/01/2018 More... Encounter Status:Closed by KIMBERLY MORENO on 03/05/19 progress on 2019-01 PROGRESS HNO ID: [id number] Normal 02-12-[address] [facility] Author: Brenda Hurd ([id number]) Service: ? Author Type: Physician Type: Progress Notes Filed: 02/12/2019 1:38 PM Note Text: Anel Espino presents with pain and painful movement in t he right shoulder. She has advanced glenohumeral joint arthritis, las t seen by me 6 months ago. PAST MEDICAL HISTORY Diagnosis Date - ABNORMAL LIVER FUNCTION STUDY 01/13/2007 - Anemia, unspecified 01/14/2007 - Basal cell carcinoma 09/25/2011 Superior umbilicus and left posterior calf, S[facility] Kan.Will follow annually every year, Due September 2012. 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 Dr. Jimenez. Had s een Dr. Huff - Unspecified asthma(493.90) - Unspecified constipation - Uses hearing aid 10/31/2017 forgot to wear today PAST SURGICAL HISTORY Procedure Laterality Date - COLONOSCOP W/ OR W/O BRSH SPEC 10/23/2018 Colonoscopy - COLONOSCOPY W/BX 12/13/09 - EGD W/O OR W/BRUSH/WASH 10/23/2018 EGD - INCISION EARDRUM,ASPIR,GEN ANESTH Myringotomy/tubes - MASTOIDECTOMY Left age 11 - PAST SURGICAL HISTORY OF cholestetoma bilat. ears x 6 - PAST SURGICAL HISTORY OF breast, milk glands removed - PAST SURGICAL HISTORY OF gallbladder - PAST SURGICAL HISTORY OF 06/2008 Lumbar Laminectomy - [facility] - PAST SURGICAL HISTORY OF squamous cell removal - right thigh [place] - REMOVAL OF OVARY(S) 09/2008 Oophorectomy - [facility] - RIGHT HEART CATHETERIZATION 2005,2006 Cardiac cath, R heart - TOTAL ABDOM HYSTERECTOMY Hysterectomy, [facility] Current Outpatient Medications on File Prior to Visit Medication Sig - oxyCODONE-acetaminophen (PERCOCET) 10-325 mg tablet Take 1 tablet by mouth twice daily for 30 days. as needed - atorvastatin (LIPITOR) 10 mg tablet Take 1 tablet by mouth once daily. - [START ON 03/22/2019] oxyCODONE-acetaminophen (PERCOCET) 10- 325 mg tablet Take 1 tablet by mouth twice daily for 30 days. - [START ON 02/20/2019] oxyCODONE-acetaminophen (PERCOCET) 10 -325 mg tablet Take 1 tablet by mouth twice daily for 30 days. - omeprazole (PRILOSEC) 20 mg capsule Take 2 capsules by duncan th once daily. - donepezil (ARICEPT) 5 mg tablet Take 1 tablet by mouth cliff ly at bedtime. - clopidogrel (PLAVIX) 75 mg tablet Take 1 tablet by mouth o nce daily. - carvedilol (COREG) 3.125 mg tablet Take 1 tablet by mouth twice daily. - amitriptyline (ELAVIL) 50 mg tablet Take 1 tablet by mouth daily at bedtime. May take extra half pill nightly as needed for slee p - polyethylene glycol 3350 (MIRALAX, GLYCOLAX) 17 gram/dose powder Take one (1) bottle, as instructed for colonoscopy prep. - bisacodyl EC (DULCOLAX, BISACODYL,) 5 mg EC tablet Take tw o (2) tablets, at the designated times, as explained on the instruction she et provided. - PHENYLephrine 0.25 % suppository 1 Suppository by RECTAL r oute twice daily. - hydrocortisone (ANUSOL-HC) 2.5 % rectal cream 1 applicatio n by RECTAL route twice daily as needed. - triamcinolone acetonide (KENALOG) 0.1 % cream Apply 1 appl ication to affected area twice daily as needed. For eczematous rash on extremities and torso - hydrALAZINE (APRESOLINE) 10 mg tablet Take 1 tablet by duncan th four times daily as needed. For systolic blood pressure over 160 - albuterol HFA (PROVENTIL HFA, VENTOLIN HFA) 90 mcg/actuati on inhaler Inhale 2 Puffs as instructed every 6 hours as needed. - albuterol (PROVENTIL) 2.5 mg /3 mL (0.083 %) nebulizer abigail ution Use 3 mL via nebulizer three times daily as needed. OVER 5-15 MINUTES . FOR WHEEZING AND SHORTNESS OF BREATH. - TRIAMCINOLONE ACETONIDE TOPICAL Apply to affected area. - COMPOUNDED PRESCRIPTION Nebulizer for home use. Diagnosis: Emphysema, COPD exacerbation. Lifetime use. - Blood Pressure Cuff - Home Use BLOOD PRESSURE CUFF FOR FARHAN E USE. DX: LABILE BLOOD PRESSURE R09.89 - Xdmikgtapex-Xxweknrcr-Xse C-Mn (GLUCOSAMINE CHONDROITIN MA XSTR) 500-400 mg cap Take 1 capsule by mouth once daily. - GUAIFENESIN ORAL Take by mouth. - citalopram (CELEXA) 20 mg tablet Take 1 tablet by mouth on ce daily. (Patient not taking: Reported on 01/21/2019 ) No current facility-administered medications on file prior t o visit. Physical Exam Findings: General exam: Normal, Extremeties right shoulder limited motion in all planes with crepitus. x-ray shows advanced OA right glenohumeral joint Assessment: shoulder arthritis Plan: The risk, benefits and alternatives of injection and no inje ction therapy were discussed. Personnel were discussed and the patient con sented for an injection. The patient has been identified by name and date. The injection site was identified, marked and prepped with a alc ohol swab. Time out completed. The right glenohumeral joint was injecte d with a 25 gauge needle with 1cc Celestone (6 mg), 4cc xylocaine plain 1%. The injection site was then dressed with a bandaid. The patient tolerated the injection well. The patient was instructed to call the offic e if any adverse local effects occurred or any if any questions or co ncerns arise. DO zaria Fraga on 2019-02-12 CNOV Office Visit (FRFHWS) Normal 02-13-20 Clifford ANEL Mcelroy ([id number]) 1935 [facility] Time Provider Department ([id number]) 02/12/19 1:20 PM KENNY DAVIS During your visit today, we recorded the following informati on about you: Kenny Davis, DO 02/12/2019 1:38 PM Signed Anel Espino presents with pain and p ainful movement in the right shoulder. She has advanced glenohumeral joint arthritis, last se en by me 6 months ago. PAST MEDICAL HISTORY Diagnosis Date - ABNORMAL LIVER FUNCTION STUDY 01/13/2007 - Anemia, unspecified 01/14/2007 - Basal cell carcinoma 09/25/2011 Superior umbilicus and left posterior calf, Dr Sommer gregg [place].Will follow annually every year, Due September 2012. 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 Dr. Jimenez. Had s een Dr. Huff - Unspecified asthma(493.90) - Unspecified constipation - Uses hearing aid 10/31/2017 forgot to wear today PAST SURGICAL HISTORY Procedure Laterality Date - COLONOSCOP W/ OR W/O BRSH SPEC 10/23/2018 Colonoscopy - COLONOSCOPY W/BX 12/13/09 - EGD W/O OR W/BRUSH/WASH 10/23/2018 EGD - INCISION EARDRUM,ASPIR,GEN ANESTH Myringotomy/tubes - MASTOIDECTOMY Left age 11 - PAST SURGICAL HISTORY OF cholestetoma bilat. ears x 6 - PAST SURGICAL HISTORY OF breast, milk glands removed - PAST SURGICAL HISTORY OF gallbladder - PAST SURGICAL HISTORY OF 06/2008 Lumbar Laminectomy - [facility] - PAST SURGICAL HISTORY OF squamous cell removal - right thigh [place] - REMOVAL OF OVARY(S) 09/2008 Oophorectomy - [facility] - RIGHT HEART CATHETERIZATION 2006,2007 Cardiac cath, R heart - TOTAL ABDOM HYSTERECTOMY Hysterectomy, [facility] Current Outpatient Medications on File Prior to Visit Medication Sig - oxyCODONE-acetaminophen (PERCOCET) 10-325 mg tablet Take 1 tablet by mouth twice daily for 30 days. as needed - atorvastatin (LIPITOR) 10 mg tablet Take 1 tablet by mouth once daily. - [START ON 03/22/2019] oxyCODONE-acetamin ophen (PERCOCET) 10-325 mg tablet Take 1 tablet by mouth twice daily for 30 days. - [START ON 02/20/2019] oxyCO DONE-acetaminophen (PERCOCET) 10-325 mg tablet Take 1 tablet by mouth twice daily for 30 days. - omeprazole (PRILOSEC) 20 mg capsule Take 2 capsules by duncan th once daily. - donepezil (ARICEPT) 5 mg tablet Take 1 tablet by mouth cliff ly at bedtime. - clopidogrel (PLAVIX) 75 mg tablet Take 1 tablet by mouth o nce daily. - carvedilol (COREG) 3.125 mg tablet Take 1 tablet by mouth twice daily. - amitriptyline (ELAVIL) 50 mg tablet Ta ke 1 tablet by mouth daily at bedtime. May take extra half pill nightly as needed for sleep - polyethylene glycol 3350 ( MIRALAX, GLYCOLAX) 17 gram/dose powder Take one (1) bottle, as instructed for colonoscopy prep. - bisacodyl EC (DULCOLAX, BISACODYL,) 5 mg EC ta blet Take two (2) tablets, at the designated times, as explained on the instruction sheet provided. - PHENYLephrine 0.25 % suppository 1 Suppository by RECTAL route twice daily. - hydrocortisone (ANUSOL-HC) 2.5 % rectal cream 1 application by RECTAL route twice daily as needed. - triamcinolone acetonide (K ENALOG) 0.1 % cream Apply 1 application to affected area twice daily as needed. For eczematous rash on extremiti es and torso - hydrALAZINE (APRESOLINE) 1 0 mg tablet Take 1 tablet by mouth four times daily as needed. For systolic blood pressure over 160 - albuterol HFA (PROVENTIL H FA, VENTOLIN HFA) 90 mcg/actuation inhaler Inhale 2 Puffs as instructed every 6 hours as needed. - albuterol (PROVENTIL) 2.5 mg /3 mL (0. 083 %) nebulizer solution Use 3 mL via nebulizer three times daily as needed. OVER 5-15 MINUTES. FO R WHEEZING AND SHORTNESS OF BREATH. - TRIAMCINOLONE ACETONIDE TOPICAL Apply to affected area. - COMPOUNDED PRESCRIPTION Nebulizer for home use. Diag nosis: Emphysema, COPD exacerbation. Lifetime use. - Blood Pressure Cuff - Home Use BLOOD PRESSURE CUFF FOR HOME USE. DX: LABILE BLOOD PRESSURE R09.89 - Idvqovasriv-Wjuhivasu-Lbo C-Mn (GLUCOSAMINE CHONDROI TIN MAXSTR) 500-400 mg cap Take 1 capsule by mouth once daily. - GUAIFENESIN ORAL Take by mouth. - citalopram (CELEXA) 20 mg tablet Take 1 tablet by mouth once daily. (Patient not taking: Reported on 01/21/2019 ) No current facility-administered medications on file prior t o visit. Physical Exam Findings: General exam: Normal, Extremeties right shoulder limited motion in all planes with crepitus. x-ray shows advanced OA right glenohumeral joint Assessment: shoulder arthritis Plan: The risk, benefits and alternatives of i njection and no injection therapy were discussed. Personnel were di scussed and the patient consented for an injection. The patient has been identified by name and jean-pierre hdate. The injection site was identified, marked and prepped with a alcohol swab. Time o ut completed. The right glenohumeral joint was injected with a 25 gauge needle with 1cc Celestone (6 mg), 4cc xylocaine plain 1%. The injection site was then dressed with a bandaid. The patient tolerated the injection wel l. The patient was instructed to call the office if any adverse local effects occurred or any if any questions or concerns arise. DO Kenny Fraga DO 02/12/2019 1:38 PM Signed Thank you for choosing the [facility] for your acute care needs. Express [facility] re treats minor infections, rashes and injuries. It is our mission for our patie nts to be healthy. A primary care relationship with the physician allows for continuity of care, counseling, a nd maintenance of preventive health care needs. Express [facility] does not replace the relationship or need for a primary care physician. For information about establishing with a primary care physician or booking an appointment, please call [phone] or speak with any Patient Service Ezekiel rodriguez. Hours: Friday through Friday 7:30 am to 7:00 pm. Friday and Friday: 8:00 am to 2:30 pm. Referring Provider: SELF [[id number]] Allergies As of Date: 02/12/2019 Noted Allergy Reaction JEFF (ZOLPIDEM) 12/28/2012 14 - Other: See Comments Comments: Hangover effect/body aches GABAPENTIN 07/18/2014 14 - Other: See Comments Comments: states that made me crazy; tremor and made her f orgetful SULFA (SULFONAMIDE ANTIBIOTICS) 08/07/2006 4 - Hives Date Reviewed: 02/12/2019 Reviewed by: Zakia Negron Ma - Fully Assessed Reason for Visit: Established Patient [175] Cmt: R shoulder injection Primary Visit Diagnosis:Arthritis of shoulder [M19.019] Order(s):[] betamethasone acetate-betamethasone sodium phosphate 6 mg injection (CELESTONE)Disp: Rfl: Prescriptions as of 02/12/2019 Sig: OXYCODONE-ACETAMINOPHEN 10 MG* Take 1 tablet by mouth twice * ATORVASTATIN 10 MG TABLET Take 1 tablet by mouth once d* OXYCODONE-ACETAMINOPHEN 10 MG* Take 1 tablet by mouth twice * OXYCODONE-ACETAMINOPHEN 10 MG* Take 1 tablet by mouth twice * OMEPRAZOLE 20 MG CAPSULE,MARY BETH* Take 2 capsules by mouth once * DONEPEZIL 5 MG TABLET Take 1 tablet by mouth daily * CLOPIDOGREL 75 MG TABLET Take 1 tablet by mouth once d* CARVEDILOL 3.125 MG TABLET Take 1 tablet by mouth twice * AMITRIPTYLINE 50 MG TABLET Take 1 tablet by mouth daily * POLYETHYLENE GLYCOL 3350 17 G* Take one (1) bottle, as instr * BISACODYL 5 MG TABLET,DELAYED* Take two (2) tablets, at the * PHENYLEPHRINE 0.25 % RECTAL S* 1 Suppository by RECTAL route * HYDROCORTISONE 2.5 % TOPICAL * 1 application by RECTAL route * TRIAMCINOLONE ACETONIDE 0.1 %* Apply 1 application to affect * HYDRALAZINE 10 MG TABLET Take 1 tablet by mouth four t* ALBUTEROL SULFATE HFA 90 MCG/* Inhale 2 Puffs as instructed * ALBUTEROL SULFATE 2.5 MG/3 ML* Use 3 mL via nebulizer three * TRIAMCINOLONE ACETONIDE TOPIC* Apply to affected area. COMPOUNDED PRESCRIPTION Nebulizer for home use. Diagn* COMPOUNDED PRESCRIPTION BLOOD PRESSURE CUFF FOR HOME * BHMZXTVLFZR-FHUAFCVTA-RHQ C-M* Take 1 capsule by mouth once * GUAIFENESIN ORAL Take by mouth. CITALOPRAM 20 MG TABLET Take 1 tablet by mouth once d* Patient not taking: Reported on 01/21/2019 Problem List As Of Date 02/12/2019 Noted Resolved Coronary atherosclerosis [I25.10] More... COPD (chronic obstructive pulmonary disease) (H* More... Unspecified Asthma [J45.909] More... Nonspecific abnormal results of liver function *01/13/2007 0 11/11/2011 CONSTIPATION NOS [K59.00] 01/13/2007 Mixed hyperlipidemia [E78.2] 04/09/2007 More... More... Former smoker [Z87.891] 11/16/2009 Spinal stenosis [M48.00] 11/16/2009 More... More... More... Insomnia [G47.00] 11/11/2011 More... Hearing loss [H91.90] 09/07/2014 Cerebrovascular accident (CVA) (HCC) [I63.9] 12/12/2015 Subdural hematoma (HCC) [S06.5X9A] 12/16/2016 Depression [F32.9] 05/01/2017 Uses hearing aid [Z97.4] 10/31/2017 More... Vascular dementia, uncomplicated [F01.50] 12/05/2017 More... Fall with injury [W19.XXXA] 01/01/2018 More... External otitis of right ear [H60.91] 01/01/2018 More... HTN (hypertension) [I10] 01/01/2018 More... DJD (degenerative joint disease) [M19.90] 01/01/2018 More... Chronic pain syndrome [G89.4] 01/01/2018 More... Other instructions from your clinician: Thank you for choosing the [facility] for your acute care needs. [facility] treats minor infections, rashes and injuries. It is our mission for our patients to be healthy. A primary care relationship with the physician allows for continuity of car e, counseling, and maintenance of preventive health care needs. [facility] does not replace the relationship or need for a primary care physician. For information about establishing with a primary care physi kermit or booking an appointment, please call [phone] or speak with any Patient Service Representvelia e. Hours: Friday through Friday 7:30 am to 7:00 pm. Friday and Friday: 8:00 am to 2:30 pm. Prescriptions ordered this encounter Disp Refills Start End BETAMETHASONE ACETATE AND SODIUM SUZIE* 02/12/2019 02/12/2019 Route: OTHER Encounter Status:Closed by KENNY DAVIS DO, V on 02/12/19 obsolete on 2019-01 OBSOLETE Refill (INTMWS) Normal 02-02-2019 Jacob james [facility] ANEL ESPINO ([id number]) 1935 [facility] Time Provider Department ([id number]) 02/02/19 SRIRAM VALDEZ INTMWS During your visit today, we recorded the following informati on about you: Miracel Cunningham LPN 02/02/2019 9:50 AM Signed Mail order pharmacy requesting refill Patient has been identified by name and date of : Yes Pharmacy phones for refill(s): Pending Prescriptions Disp Refills ATORVASTATIN 10 MG TABLET 90 tablet 3 Sig: Take 1 tablet by mouth once daily. JOS: No Date of last office visit in primary care: 01/21/2019 Last 2 Encounter Wt Readings: Date: Wt: 01/21/2019 66.2 kg (146 lb) 10/16/2018 68.5 kg (151 lb 0.2 oz) Previous labs/tests for medication: Cholesterol: HDL Cholesterol (mg/dL) Date Value 07/08/2018 82 HDL Cholesterol, Nonfasting (mg/dL) Date Value 02/01/2019 80 LDL Cholesterol (mg/dL) Date Value 07/08/2018 88 LDL Cholesterol, Nonfasting (mg/dL) Date Value 02/01/2019 111 ALT (U/L) Date Value 02/01/2019 12 Non HDL Cholesterol, Nonfasting (mg/dL) Date Value 02/01/2019 127 Please advise. Thank you. Miracle Cunningham LPN Allergies As of Date: 02/02/2019 Noted Allergy Reaction AMBIEN (ZOLPIDEM) 12/28/2012 14 - Other: See Comments Comments: Hangover effect/body aches GABAPENTIN 07/18/2014 14 - Other: See Comments Comments: states that made me crazy; tremor and made her f orgetful SULFA (SULFONAMIDE ANTIBIOTICS) 08/07/2006 4 - Hives Date Reviewed: 01/21/2019 Reviewed by: Eli Hernández LPN - Fully Assessed Reason for Visit: Refill Request [94] Order(s):atorvastatin (LIPITOR) 10 mg tabletTake 1 tablet by mouth once daily.Disp: 90 tabletRfl: 3 Prescriptions as of 02/02/2019 Sig: ATORVASTATIN 10 MG TABLET Take 1 tablet by mouth once d* OXYCODONE-ACETAMINOPHEN 10 MG* Take 1 tablet by mouth twice * OXYCODONE-ACETAMINOPHEN 10 MG* Take 1 tablet by mouth twice * OXYCODONE-ACETAMINOPHEN 10 MG* Take 1 tablet by mouth twice * OMEPRAZOLE 20 MG CAPSULE,MARY BETH* Take 2 capsules by mouth once * DONEPEZIL 5 MG TABLET Take 1 tablet by mouth daily * CLOPIDOGREL 75 MG TABLET Take 1 tablet by mouth once d* CITALOPRAM 20 MG TABLET Take 1 tablet by mouth once d* Patient not taking: Reported on 01/21/2019 CARVEDILOL 3.125 MG TABLET Take 1 tablet by mouth twice * AMITRIPTYLINE 50 MG TABLET Take 1 tablet by mouth daily * POLYETHYLENE GLYCOL 3350 17 G* Take one (1) bottle, as instr * BISACODYL 5 MG TABLET,DELAYED* Take two (2) tablets, at the * PHENYLEPHRINE 0.25 % RECTAL S* 1 Suppository by RECTAL route * HYDROCORTISONE 2.5 % TOPICAL * 1 application by RECTAL route * TRIAMCINOLONE ACETONIDE 0.1 %* Apply 1 application to affect * HYDRALAZINE 10 MG TABLET Take 1 tablet by mouth four t* ALBUTEROL SULFATE HFA 90 MCG/* Inhale 2 Puffs as instructed * ALBUTEROL SULFATE 2.5 MG/3 ML* Use 3 mL via nebulizer three * TRIAMCINOLONE ACETONIDE TOPIC* Apply to affected area. COMPOUNDED PRESCRIPTION Nebulizer for home use. Diagn* COMPOUNDED PRESCRIPTION BLOOD PRESSURE CUFF FOR HOME * [id number] C-M* Take 1 capsule by mouth once * GUAIFENESIN ORAL Take by mouth. Problem List As Of Date 02/02/2019 Noted Resolved Coronary atherosclerosis [I25.10] More... COPD (chronic obstructive pulmonary disease) (H* More... Unspecified Asthma [J45.909] More... Nonspecific abnormal results of liver function *01/13/2007 0 11/11/2011 CONSTIPATION NOS [K59.00] 01/13/2007 Mixed hyperlipidemia [E78.2] 04/09/2007 More... More... Former smoker [Z87.891] 11/16/2009 Spinal stenosis [M48.00] 11/16/2009 More... More... More... Insomnia [G47.00] 11/11/2011 More... Hearing loss [H91.90] 09/07/2014 Cerebrovascular accident (CVA) (HCC) [I63.9] 12/12/2015 Subdural hematoma (HCC) [S06.5X9A] 12/16/2016 Depression [F32.9] 05/01/2017 Uses hearing aid [Z97.4] 10/31/2017 More... Vascular dementia, uncomplicated [F01.50] 12/05/2017 More... Fall with injury [W19.XXXA] 01/01/2018 More... External otitis of right ear [H60.91] 01/01/2018 More... HTN (hypertension) [I10] 01/01/2018 More... DJD (degenerative joint disease) [M19.90] 01/01/2018 More... Chronic pain syndrome [G89.4] 01/01/2018 More... Prescriptions ordered this encounter Disp Refills Start End ATORVASTATIN 10 MG TABLET 90 t* 3 02/02/2019 Route: ORAL Sig: Take 1 tablet by mouth once daily. Medications Discontinued During This Encounter atorvastatin (LIPITOR) 10 mg tablet 90 t* 3 10/16/2018 019 Class: [employer] Route: ORAL Sig: Take 1 tablet by mouth once daily. Disc: Reason for discontinue is not on file. Encounter Status:Closed by EDMAR, JENNY FEED RESEARCH AIDE on 02/02/19 tsh on 2019-02-01 TSH Qn 1.560 0.270-4.200 uU/mL Normal 02-01-2019 [facility] ([id number]) Comment: Performed By: #### LIPNF, CB C, CMP, TSH ####[facility] [address] [place], [place] [phone] lipid panel, nonfast on 2019-02-01 Cholesterol [Mass/Vol] 207 <200 mg/dL High 019 [facility] ([id number]) Comment: Result Comment: <200 mg/dL, Desirable 200-239 mg/dL, Borderline hi gh >239 mg/dL, High Performed By: #### LIPNF, CB C, CMP, TSH ####[facility] [place], [place] [phone] Cholesterol in 1.39 <2.54 mg/dL Normal 02-01-2019 [facility] LDL/Cholesterol in HDL [Mass Clifford (00714) ratio] Comment: Result Comment: Reference: 1. National Cholesterol Educ ation Program ATP III Guideline At-A-Glance Quick Desk Reference: National Heart, Lung, and Blood [place]. National Institutes of Health. 2001: NIH Publication No. 01-3305. 2. An International Atherosc lerosis Society position paper: global recommendations for the management of dyslipidemia: executive summary, Atherosclerosis. 2014: 232(2):410-413. Performed By: #### LIPNF, CB C, CMP, TSH ####[facility] [address] [place], [place] [phone] Cholesterol.total/Cholesterol in 2.59 <5.10 mg/dL Normal 02-01-2019 Clifford HDL [Mass ratio] [facility] (47659) Comment: Performed By: #### LIPNF, CB C, CMP, TSH ####[facility] [address] [place], [place] [phone] HDL Cholesterol, NF 80 >39 mg/dL Normal 02-01-2019 [facility] (98861) Comment: Result Comment: 40-59 mg/dL, Acceptable >59 mg/dL, High: Negative ri sk factor for coronary heart disease <40 mg/dL, Low: Positive ris k factor for coronary heart disease Performed By: #### LIPNF, CB C, CMP, TSH ####[facility] [place] [phone] LDL Cholesterol, NF 111 <100 mg/dL High 02-01-2019 [facility] (59923) Comment: Result Comment: <100 mg/dL, Optimal 100-129 mg/dL, Near optimal/ above optimal 130-159 mg/dL, Borderline hi gh 160-189 mg/dL, High >189 mg/dL, Very high Secondary prevention optimal LDL Cholesterol levels are recommended to be < 70 mg/dL Performed By: #### LIPNF, CB C, CMP, TSH ####[place] [address] [place] [phone] Non HDL Chol, NF 127 <130 mg/dL Normal 02-01-2019 [facility] (78730) Comment: Result Comment: <130 mg/dL, Optimal 130-159 mg/dL, Near optimal/ above optimal 160-189 mg/dL, Borderline hi gh 190-219 mg/dL, High >219 mg/dL, Very high Secondary prevention optimal non HDL Cholesterol levels are recommended to be < 100 mg/dL Performed By: #### LIPNF, CB C, CMP, TSH ####[facility] [place] [phone] Triglycerides, NF 82 <150 mg/dL Normal 02-01-2019 [facility] (01005) Comment: Result Comment: <150 mg/dL, Normal 150-199 mg/dL, Borderline hi gh 200-499 mg/dL, High >499 mg/dL, Very high Performed By: #### LIPNF, CB C, CMP, TSH ####[facility] [place] [phone] VLDL Cholesterol, NF 16 <30 mg/dL Normal 9 [facility] (35191) Comment: Performed By: #### LIPNF, CB C, CMP, TSH ####[facility] [place], [place] [phone] comp metabolic panel on 2019-02-01 Albumin [Mass/Vol] 4.1 3.9-4.9 g/dL Normal 02-01-2019 [facility] (76145) Comment: Performed By: #### LIPNF, CB C, CMP, TSH ####[facility] [address] [place], [place] [phone] ALP [Catalytic activity/Vol] 73 34-123 U/L Normal 1 04-03-2018 [facility] (22017) Comment: Performed By: #### LIPNF, CB C, CMP, TSH ####[facility] [place] [phone] ALT [Catalytic activity/Vol] 12 7-38 U/L Normal 1 04-03-2018 [facility] (94980) Comment: Performed By: #### LIPNF, CB C, CMP, TSH ####[facility] [address] [place], [place] [phone] Anion gap [Moles/Vol] 9 9-18 mmol/L Normal 02-02-20 19 [facility] (37091) Comment: Performed By: #### LIPNF, CB C, CMP, TSH ####[facility] [address] [place] [phone] AST [Catalytic activity/Vol] 23 13-35 U/L Normal 1 04-03-2018 [facility] (58667) Comment: Performed By: #### LIPNF, CB C, CMP, TSH ####[facility] [address] [place], [place] [phone] Bilirubin [Mass/Vol] 0.3 0.2-1.3 mg/dL Normal 9 [facility] (45484) Comment: Performed By: #### LIPNF, CB C, CMP, TSH ####[facility] [address] [place], [place] [phone] Calcium [Mass/Vol] 9.3 8.5-10.2 mg/dL Normal 02-01-2019 [facility] (94119) Comment: Performed By: #### LIPNF, CB C, CMP, TSH ####[facility] [address] [place] [phone] Chloride [Moles/Vol] 102 97-105 mmol/L Normal 9 [facility] (09768) Comment: Performed By: #### LIPNF, CB C, CMP, TSH ####[facility] [address] [place], [place] [phone] CO2 [Moles/Vol] 30 22-30 mmol/L Normal 02-01-2019 [facility] (30867) Comment: Performed By: #### LIPNF, CB C, CMP, TSH ####[facility] [address] [place], [place] [phone] Creatinine [Mass/Vol] 0.94 0.58-0.96 mg/dL Normal 02-02-20 19 [facility] (19837) Comment: Performed By: #### LIPNF, CB C, CMP, TSH ####[facility] [place], [place] [phone] eGFR- Amer. >60 Normal 02-01-2019 [facility] (34765) Comment: Performed By: #### LIPNF, CB C, CMP, TSH ####[facility] [place], [place] [phone] GFR/1.73 sq M predicted among 57 . Normal 02-01-2019 [facility] non-blacks MDRD (S/P/Bld) [Vol (77616) rate/Area] Comment: Result Comment: eGFR (Estima pedro GFR) Units of measure: mL/min/1.73 meters squared eGFR is derived from the ree xpressed MDRD Study equation using the following parameters: serum creatinine, age, gender and race. The creatinine assay has been calibrated to be traceable to IDMS. An eGFR <60 mL/min/1.73m2 fo r >3 months is consistent with chronic kidney disease. Refer to KDOQI guidelines for clinical interpretation. In patients with unstable re nal function, e.g. those with acute kidney injury, the eGFR may not accurately reflect actual GFR. Performed By: #### NITA PIRES, CMP, TSH ####[facility] [address] [place], [place] [phone] Glucose [Mass/Vol] 96 74-99 mg/dL Normal 02-01-2019 [facility] (05011) Comment: Result Comment: The [place] Diabetes Association (ADA) provides guidance for cutoff values for fasting glucose and random glucose. The ADA defines fasting as no caloric intake for at least 8 hours. Fas ting plasma glucose results between 100 to 125 mg/dL indicate increased risk for diabetes (prediabetes). Fasting plasma glucose resul ts greater than or equal to 126 mg/dL meet the criteria for diagnosis of diabetes. In the absence of unequivocal hyperglycemia, results should be confirmed by repeat testing. In a patient with classic s ymptoms of hyperglycemia or hyperglycemic crisis, random plasma glucose results greater than or equal to 200 mg/dL meet the criteria for diagnosis of diabetes. Reference: Standards of [facility] Care in Diabetes 2016, [place] Diabetes Association. Diabetes Care. 2016.39(Suppl 1). Performed By: #### NITA PIRES, CMP, TSH ####[facility] [address] [place], [place] [phone] Potassium [Moles/Vol] 4.7 3.7-5.1 mmol/L Normal 02-02-20 [facility] (23797) Comment: Performed By: #### NITA PIRES, CMP, TSH ####[facility] [address] [place], [place] [phone] Protein [Mass/Vol] 6.1 6.3-8.0 g/dL Low 02-01-2019 [facility] (75806) Comment: Performed By: #### LIPNF, CB C, CMP, TSH ####[facility] [place] [phone] Sodium [Moles/Vol] 141 136-144 mmol/L Normal 02-01-2019 [facility] (49051) Comment: Performed By: #### LIPNF, CB C, CMP, TSH ####[facility] [place] [phone] Urea nitrogen [Mass/Vol] 17 7-21 mg/dL Normal 02-01 [facility] (38899) Comment: Performed By: #### LIPNF, CB C, CMP, TSH ####[facility] [place] [phone] cbc on 2019-02-01 Absolute nRBC <0.01 <0.01 Normal 02-01-2019 [facility] (27714) Comment: Performed By: #### LIPNF, CB C, CMP, TSH ####[facility] [place] [phone] Erythrocyte distribution 13.5 11.5-15.0 % Normal 02-[address] [facility] width (RBC) [Ratio] Clifford (32155) Comment: Performed By: #### LIPNF, CB C, CMP, TSH ####[facility] [place] [phone] Hematocrit (Bld) [Volume 41.2 36.0-46.0 % Normal 02-[address] [facility] fraction] Clifford (95727) Comment: Performed By: #### LIPNF, CB C, CMP, TSH ####[facility] [address] [place], [place] [phone] Hemoglobin (Bld) 12.1 11.5-15.5 g/dL Normal 02-01-2019 [facility] [Mass/Vol] Clifford (98827) Comment: Performed By: #### LIPNF, CB C, CMP, TSH ####[facility] [address] [place], [place] [phone] MCH (RBC) [Entitic mass] 26.6 26.0-34.0 pG Normal 02-01 [facility] (03872) Comment: Performed By: #### LIPNF, CB C, CMP, TSH ####[facility] [place], [place] [phone] MCHC (RBC) [Mass/Vol] 29.4 30.5-36.0 g/dL Low 02-02-20 19 [facility] (79562) Comment: Performed By: #### LIPNF, CB C, CMP, TSH ####[place] [id number] [place], [place] [phone] MCV (RBC) [Entitic vol] 90.5 80.0-100.0 fL Normal 02-01 [facility] (41755) Comment: Performed By: #### LIPNF, CB C, CMP, TSH ####[facility] [place], [place] [phone] Platelet mean volume 10.5 9.0-12.7 fL Normal [address] [facility] (Bld) [Entitic vol] Clifford (58843) Comment: Performed By: #### LIPNF, CB C, CMP, TSH ####[facility] [place], [place] [phone] Platelets (Bld) [#/Vol] 302 150-400 k/uL Normal 2018 [facility] (04192) Comment: Performed By: #### LIPNF, CB C, CMP, TSH ####[facility] [place], [place] [phone] RBC (Bld) [#/Vol] 4.55 3.90-5.20 m/uL Normal 02-01-2019 [facility] (54537) Comment: Performed By: #### LIPNF, CB C, CMP, TSH ####[facility] [address] [place], [place] [phone] WBC (Bld) [#/Vol] 6.54 3.70-11.00 k/uL Normal 02-01-2019 [facility] (95753) Comment: Performed By: #### LIPNF, CB C, CMP, TSH ####[facility] [address] [place], [place] [phone] progress on 2019-01 PROGRESS HNO ID: [id number] Normal 01-21-[address] [facility] Author: Irvin (Billet Assembler) Montero Clifford ([id number]) Service: ? Author Type: Nurse Specialist Type: Progress Notes Filed: 01/21/2019 3:21 PM Note Text: OUTPATIENT VISIT DATE January 21, 2019 OUTPATIENT VISIT TYPE ESTABLISHED PRIMARY CARE PHYSICIAN: Sriram Valdez MD CHIEF COMPLAINT: Patient presents with: F/U 3 Month History of Present Illness: Anel Espino is a 83 year old female who was has been see n in the past for ACTIVE PROBLEM LIST Coronary Atherosclerosis Copd (Chronic Obstructive Pulmonary Disease) (Hcc) Unspecified Asthma(493.90) Unspecified Constipation Mixed Hyperlipidemia Former Smoker Spinal Stenosis Insomnia Hearing Loss Cerebrovascular Accident (Cva) (Hcc) Subdural Hematoma (Hcc) Depression Uses Hearing Aid Vascular Dementia, Uncomplicated (Hcc) Fall With Injury External Otitis of Right Ear Htn (Hypertension) Djd (Degenerative Joint Disease) Chronic Pain Syndrome Notes that she lives alone in apartment, able to complete da [employer] activities. Notes no need for assistance at this time. COPD. Currently controlled, has nebulizer and inhaler at [facility]. Ms. Espino has complaint of depression, controlled on curre nt medication, no voiced SI, HI, need to change medication. Follows with Dr. Rogers for cardiology, recently seen. HTN: Without report of headache, chest pain, palpitations, d yspnea, peripheral edema, orthopnea, fatigue and PND. Last 14 BP Last 14 Encounter BP Readings: Date: BP: 01/21/2019 126/84 10/16/2018 145/74 10/16/2018 110/62 10/13/2018 105/69 09/09/2018 136/68 08/25/2018 126/82 07/17/2018 116/72 04/20/2018 110/66 03/04/2018 128/82 01/16/2018 128/78 10/13/2017 94/58 09/25/2017 108/70 09/14/2017 134/78 08/15/2017 136/82 Hyperlipidemia. Her most recent lipid panels are: Cholesterol, Total (mg/dL) Date Value 07/08/2018 184 04/04/2017 190 HDL Cholesterol (mg/dL) Date Value 07/08/2018 82 04/04/2017 81 LDL Cholesterol (mg/dL) Date Value 07/08/2018 88 04/04/2017 90 Triglyceride (mg/dL) Date Value 07/08/2018 70 04/04/2017 97 She has chronic low back and leg pain, helped with current m edications. No sedation or OIC noted. PDMP website checked and validated. All prescriptions have b een APPROPRIATELY filled. No suspicious activity was identified. 01/21/2019 by Irvin Montero APRN.AUTOMOTIVE SERVICE DIRECTOR PAST MEDICAL HISTORY Diagnosis Date - ABNORMAL LIVER FUNCTION STUDY 01/13/2007 - Anemia, unspecified 01/14/2007 - Basal cell carcinoma 09/25/2011 Superior umbilicus and left posterior calf, [place] Kan.Will follow annually every year, Due September 2012. 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 Dr. Jimenez. Had s een Dr. Huff - Unspecified asthma(493.90) - Unspecified constipation - Uses hearing aid 10/31/2017 forgot to wear today PAST SURGICAL HISTORY Procedure Laterality Date - COLONOSCOP W/ OR W/O BRSH SPEC 10/23/2018 Colonoscopy - COLONOSCOPY W/BX 12/13/09 - EGD W/O OR W/BRUSH/WASH 10/23/2018 EGD - INCISION EARDRUM,ASPIR,GEN ANESTH Myringotomy/tubes - MASTOIDECTOMY Left age 11 - PAST SURGICAL HISTORY OF cholestetoma bilat. ears x 6 - PAST SURGICAL HISTORY OF breast, milk glands removed - PAST SURGICAL HISTORY OF gallbladder - PAST SURGICAL HISTORY OF 06/2008 Lumbar Laminectomy - [facility] - PAST SURGICAL HISTORY OF squamous cell removal - right thigh Menard - REMOVAL OF OVARY(S) 09/2008 Oophorectomy - [facility] - RIGHT HEART CATHETERIZATION 2005,2006 Cardiac cath, R heart - TOTAL ABDOM HYSTERECTOMY Hysterectomy, [facility] FAMILY HISTORY Problem Relation Age of Onset - Heart Father - other (ibs) Brother - Heart Paternal Grandmother - Heart Paternal Grandfather Social History Tobacco Use - Smoking status: Former Smoker Packs/day: 1.00 Years: 25.00 Pack years: 25.00 Types: Cigarettes Start date: 12/04/2016 Last attempt to quit: 11/14/2017 Years since quittin.1 - Smokeless tobacco: Never Used - Tobacco comment: Down to half PPD; quit after became ill a nd fell Substance Use Topics - Alcohol use: Yes Alcohol/week: 17.5 standard drinks Types: 7 Glasses of Wine (5oz) per week - Drug use: No ALLERGIES: ALLERGIES Allergen Reactions - Ambien [Zolpidem] Other: See Comments Hangover effect/body aches - Gabapentin Other: See Comments states that made me crazy; tremor and made her forgetful - Sulfa (Sulfonamide * Hives MEDICATIONS omeprazole (PRILOSEC) 20 mg capsule Take 2 capsules by mouth once daily. donepezil (ARICEPT) 5 mg tablet Take 1 tablet by mouth daily at bedtime. clopidogrel (PLAVIX) 75 mg tablet Take 1 tablet by mouth onc e daily. carvedilol (COREG) 3.125 mg tablet Take 1 tablet by mouth tw ice daily. atorvastatin (LIPITOR) 10 mg tablet Take 1 tablet by mouth o nce daily. amitriptyline (ELAVIL) 50 mg tablet Take 1 tablet by mouth d aily at bedtime. May take extra half pill nightly as needed for slee p polyethylene glycol 3350 (MIRALAX, GLYCOLAX) 17 gram/dose po wder Take one (1) bottle, as instructed for colonoscopy prep. bisacodyl EC (DULCOLAX, BISACODYL,) 5 mg EC tablet Take two (2) tablets, at the designated times, as explained on the instruction she et provided. PHENYLephrine 0.25 % suppository 1 Suppository by RECTAL rou te twice daily. hydrocortisone (ANUSOL-HC) 2.5 % rectal cream 1 application by RECTAL route twice daily as needed. triamcinolone acetonide (KENALOG) 0.1 % cream Apply 1 applic ation to affected area twice daily as needed. For eczematous rash on extremities and torso hydrALAZINE (APRESOLINE) 10 mg tablet Take 1 tablet by mouth four times daily as needed. For systolic blood pressure over 160 albuterol HFA (PROVENTIL HFA, VENTOLIN HFA) 90 mcg/actuation inhaler Inhale 2 Puffs as instructed every 6 hours as needed. albuterol (PROVENTIL) 2.5 mg /3 mL (0.083 %) nebulizer solut ion Use 3 mL via nebulizer three times daily as needed. OVER 5-15 MINUTES . FOR WHEEZING AND SHORTNESS OF BREATH. TRIAMCINOLONE ACETONIDE TOPICAL Apply to affected area. COMPOUNDED PRESCRIPTION Nebulizer for home use. Diagnosis: E mphysema, COPD exacerbation. Lifetime use. Blood Pressure Cuff - Home Use BLOOD PRESSURE CUFF FOR HOME USE. DX: LABILE BLOOD PRESSURE R09.89 Jlmrnfhmltj-Dxzcynnbg-Xjj C-Mn (GLUCOSAMINE CHONDROITIN MAXS TR) 500-400 mg cap Take 1 capsule by mouth once daily. citalopram (CELEXA) 20 mg tablet Take 1 tablet by mouth once daily. GUAIFENESIN ORAL Take by mouth. REVIEW OF SYSTEMS: GENERAL: Negative for: Weight loss or gain, Fever or Chills, Weakness and Sleep difficulties. Physical Examination: BP 126/84 (BP Site: Left Arm, BP Position: Sitting, BP Cuff Size: Regular Adult) Pulse 76 Resp 16 Wt 66.2 kg (146 lb) BMI 22.2 0 kg/m? General appearance: Well appearing, alert, in no acute distr ess, well-hydrated, well nourished. Skin: Skin color, texture, turgor normal, no suspicious rash es or lesions Neck: Supple, no adenopathy; thyroid symmetric, normal size, no bruits Lungs: Lungs clear to auscultation. No wheezing, rhonchi, ra les Heart: RRR without murmur, gallop, or rubs. Abdomen: Abdomen soft, non-tender. Bowel sounds normal. No m asses, organomegaly Extremities: No d edema, skin discoloration, clubbing or cya nosis. Good capillary refill. Peripheral pulses: Normal Neuro: Gait normal. . Sensation grossly intact. Reviewed chart, outside records, tests PDMP website checked and validated. All prescriptions have b een APPROPRIATELY filled. No suspicious activity was identified. 01/16/2018 by Irvin Montero APRN.AUTOMOTIVE SERVICE DIRECTOR I per sonally interviewed, confirmed and edited the above information if obtained by others. TESTING: Component Latest Ref Rng AND Units 04/04/2017 10/08/2017201809/10/2018 09/28/2018 10/15/2018 10/23/2018 Protein, Total 6.3 - 8.0 g/dL 6.2 (L) 6.2 (L) Albumin 3.9 - 4.9 g/dL 4.0 3.9 Calcium 8.5 - 10.2 mg/dL 9.1 9.4 Bilirubin, Total 0.2 - 1.3 mg/dL 0.3 0.3 Alkaline Phosphatase 34 - 123 U/L 97 119 AST 13 - 35 U/L 34 171 (H) Glucose 74 - 99 mg/dL 85 90 BUN 7 - 21 mg/dL 14 14 Creatinine 0.58 - 0.96 mg/dL 0.87 1.02 (H) Sodium 136 - 144 mmol/L 141 142 Potassium 3.7 - 5.1 mmol/L 4.7 4.6 Chloride 97 - 105 mmol/L 102 103 CO2 22 - 30 mmol/L 28 29 Anion Gap 9 - 18 mmol/L 11 10 ALT 7 - 38 U/L 37 120 (H) eGFR- >60 >60 eGFR-All Other Races . >60 52 WBC 3.70 - 11.00 k/uL 5.65 4.75 6.43 RBC 3.90 - 5.20 m/uL 4.32 4.57 4.58 Hemoglobin 11.5 - 15.5 g/dL 11.7 12.4 12.4 Hematocrit 36.0 - 46.0 % 39.3 40.9 40.2 MCV 80.0 - 100.0 fL 91.0 89.5 87.8 MCH 26.0 - 34.0 pG 27.1 27.1 27.1 MCHC 30.5 - 36.0 g/dL 29.8 (L) 30.3 (L) 30.8 RDW-CV 11.5 - 15.0 % 13.6 13.5 14.1 Platelet Count 150 - 400 k/uL 277 262 285 MPV 9.0 - 12.7 fL 10.4 10.2 10.1 Absolute nRBC <0.01 k/uL <0.01 <0.01 0.01 (H) Cholesterol, Total <200 mg/dL 190 184 Triglyceride <150 mg/dL 97 70 HDL Cholesterol >39 mg/dL 81 82 LDL Cholesterol <100 mg/dL 90 88 Non HDL Cholesterol <130 mg/dL 109 102 Fasting Time hrs 12 10 VLDL Cholesterol <30 mg/dL 19 14 TC:HDL Ratio <5.10 2.35 2.24 LDL:HDL Ratio <2.54 1.11 1.07 Lactose, Fasting 74 - 99 mg/dL 81 Lactose, 30 min mg/dL 117 Lactose, 60 min mg/dL 78 Lactose, 90 min mg/dL 64 Lactose, 120 min mg/dL 76 TSH 0.400 - 5.500 uU/mL 2.230 Occult Blood, Stool Negative Positive (A) 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 . . . Ejection Fraction: No results found IMPRESSION: Ms. Espino is a 83 year old woman presents for hospital dis charge follow up visit. After my examination and review of data, I make the followin g recommendations. PLAN AND RECOMMENDATIONS: 1. Atherosclerosis of coronary artery of [place] heart withou t angina pectoris, unspecified vessel or lesion type - ICD9: 414.01, ICD10: I25.10 (primary diagnosis) Following with cardiology, no current symptoms - TSH BLD - CBC - COMP METABOLIC PANEL 2. Pulmonary emphysema, unspecified emphysema type (HCC) - I CD9: 492.8, ICD10: J43.9 Currently controlled, has an inhaler or nebulizer at home cu rrently not smoking. Continue current treatments. Continue to monitor - TSH BLD - CBC - COMP METABOLIC PANEL 3. Mixed hyperlipidemia - ICD9: 272.2, ICD10: E78.2 No adverse effects of medication noted, continue with curren t treatment unchanged for now, continue to monitor - TSH BLD - LIPID PANEL, NONFASTING 4. Spinal stenosis, unspecified spinal region - ICD9: 724.00 , ICD10: M48.00 No adverse effects of medication noted, continue with curren t treatment unchanged for now, continue to monitor 5. Other depression - ICD9: 311, ICD10: F32.89 Continue with current treatment unchanged for now, continue to monitor - TSH BLD - CBC - COMP METABOLIC PANEL 6. Leg pain, right - ICD9: 729.5, ICD10: M79.604 7. Pain in the muscles, right leg - ICD9: 729.1, ICD10: M79. 10 8. Spinal stenosis of lumbar region, unspecified whether yoselin rogenic claudication present - ICD9: 724.02, ICD10: M48.061 9. Chronic pain syndrome - ICD9: 338.4, ICD10: G89.4 10. Radiculopathy with lower extremity symptoms - ICD9: 724. 4, ICD10: M54.10 - OXYCODONE-ACETAMINOPHEN 10 MG-325 MG TABLET - OXYCODONE-ACETAMINOPHEN 10 MG-325 MG TABLET - OXYCODONE-ACETAMINOPHEN 10 MG-325 MG TABLET Refer to pain management +/-physical therapy if she so aleisha es, defers for now. Continue with current pain treatment unchanged for now, cont inue to monitor. No reported adverse effects currently. follow up Q3 months check labs this visit or next, orders placed. Advised to go to ER if develops chest pain, shortness of juana ath, or severe worsening of symptoms. Discussed risks, benefits, alternatives, and potential side effects of medications. Ms. Espino expressed understanding and agreed with the plan . Irvin Montero APRN.JADE enciso on 2019-01-21 CNOV Office Visit (INTMWS) Normal 01-22-20 [facility] ANEL ESPINO ([id number]) 1935 [address] [facility] Date Time Provider Department ([id number]) 01/21/19 2:20 PM IRVIN MONTERO (JADE) INTMWS During your visit today, we recorded the following informati on about you: Pulse Respiration Blood pressure Weight 76/minute 16/minute 126/84 66.2 kg Irvin Montero APRN.CNS 01/21/2019 3:21 PM Signed OUTPATIENT VISIT DATE January 21, 2019 OUTPATIENT VISIT TYPE ESTABLISHED PRIMARY CARE PHYSICIAN: Sriram Valdez MD CHIEF COMPLAINT: Patient presents with: F/U 3 Month History of Present Illness: Anel Espino is a 83 year old female who was has been seen in the past for ACTIVE PROBLEM LIST Coronary Atherosclerosis Copd (Chronic Obstructive Pulmonary Disease) (Hcc) Unspecified Asthma(493.90) Unspecified Constipation Mixed Hyperlipidemia Former Smoker Spinal Stenosis Insomnia Hearing Loss Cerebrovascular Accident (Cva) (Hcc) Subdural Hematoma (Hcc) Depression Uses Hearing Aid Vascular Dementia, Uncomplicated (Hcc) Fall With Injury External Otitis of Right Ear Htn (Hypertension) Djd (Degenerative Joint Disease) Chronic Pain Syndrome Notes that she lives alone in apartment, able to complete daily activities. Notes no need for assistance at this time. COPD. Currently controlled, has nebulizer and inhaler at [facility]. Ms. Espino has complaint of depression, control led on current medication, no voiced SI, HI, need to change medication. Follows with Dr. Rogers for cardiology, recently seen. HTN: Without report of headache, chest p ain, palpitations, dyspnea, peripheral edema, orthopnea, fatigue and PND. Last 14 BP Last 14 Encounter BP Readings: Date: BP: 01/21/2019 126/84 10/16/2018 145/74 10/16/2018 110/62 10/13/2018 105/69 09/09/2018 136/68 08/25/2018 126/82 07/17/2018 116/72 04/20/2018 110/66 03/04/2018 128/82 01/16/2018 128/78 10/13/2017 94/58 09/25/2017 108/70 09/14/2017 134/78 08/15/2017 136/82 Hyperlipidemia. Her most recent lipid panels are: Cholesterol, Total (mg/dL) Date Value 07/08/2018 184 04/04/2017 190 HDL Cholesterol (mg/dL) Date Value 07/08/2018 82 04/04/2017 81 LDL Cholesterol (mg/dL) Date Value 07/08/2018 88 04/04/2017 90 Triglyceride (mg/dL) Date Value 07/08/2018 70 04/04/2017 97 She has chronic low back and leg pain, helped with current m edications. No sedation or OIC noted. PDMP website checked and validated. All prescrip tions have been APPROPRIATELY filled. No suspicious activity was identified. 01/21/2019 by Irvin Montero APRN.AUTOMOTIVE SERVICE DIRECTOR PAST MEDICAL HISTORY Diagnosis Date - ABNORMAL LIVER FUNCTION STUDY 01/13/2007 - Anemia, unspecified 01/14/2007 - Basal cell carcinoma 09/25/2011 Superior umbilicus and left posterior calf, Sailaja Suárez.Will follow annually every year, Due September 2012. 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 Dr. Jimenez. Had s een Dr. Huff - Unspecified asthma(493.90) - Unspecified constipation - Uses hearing aid 10/31/2017 forgot to wear today PAST SURGICAL HISTORY Procedure Laterality Date - COLONOSCOP W/ OR W/O BRSH SPEC 10/23/2018 Colonoscopy - COLONOSCOPY W/BX 12/13/09 - EGD W/O OR W/BRUSH/WASH 10/23/2018 EGD - INCISION EARDRUM,ASPIR,GEN ANESTH Myringotomy/tubes - MASTOIDECTOMY Left age 11 - PAST SURGICAL HISTORY OF cholestetoma bilat. ears x 6 - PAST SURGICAL HISTORY OF breast, milk glands removed - PAST SURGICAL HISTORY OF gallbladder - PAST SURGICAL HISTORY OF 06/2008 Lumbar Laminectomy - [facility] - PAST SURGICAL HISTORY OF squamous cell removal - right thigh [place] - REMOVAL OF OVARY(S) 09/2008 Oophorectomy - [facility] - RIGHT HEART CATHETERIZATION 2005,2006 Cardiac cath, R heart - TOTAL ABDOM HYSTERECTOMY Hysterectomy, [facility] H[facility] Problem Relation Age of Onset - Heart Father - other (ibs) Brother - Heart Paternal Grandmother - Heart Paternal Grandfather Social History Tobacco Use - Smoking status: Former Smoker Packs/day: 1.00 Years: 25.00 Pack years: 25.00 Types: Cigarettes Start date: 12/04/2016 Last attempt to quit: 11/14/2017 Years since quittin.1 - Smokeless tobacco: Never Used - Tobacco comment: Down to half PPD; quit after became ill a nd fell Substance Use Topics - Alcohol use: Yes Alcohol/week: 17.5 standard drinks Types: 7 Glasses of Wine (5oz) per week - Drug use: No ALLERGIES: ALLERGIES Allergen Reactions - Ambien [Zolpidem] Other: See Comments Hangover effect/body aches - Gabapentin Other: See Comments states that made me crazy; tremor and made her forgetful - Sulfa (Sulfonamide * Hives MEDICATIONS omeprazole (PRILOSEC) 20 mg capsule Take 2 capsules by mouth once daily. donepezil (ARICEPT) 5 mg tablet Take 1 tablet by mouth daily at bedtime. clopidogrel (PLAVIX) 75 mg tablet Take 1 tablet by mouth onc e daily. carvedilol (COREG) 3.125 mg tablet Take 1 tablet by mouth tw ice daily. atorvastatin (LIPITOR) 10 mg tablet Take 1 tablet by mouth o nce daily. amitriptyline (ELAVIL) 50 mg tablet Take 1 tablet by m outh daily at bedtime. May take extra half pill nightly as needed for sleep polyethylene glycol 3350 (MIRALAX, GLYCOLAX) 17 gram/dose powder Take one (1) bottle, as instructed for colonoscopy prep. bisacodyl EC (DULCOLAX, BISA CODYL,) 5 mg EC tablet Take two (2) tablets, at the designated times, as explained on the instruction sheet prov ided. PHENYLephrine 0.25 % suppository 1 Suppository by RECTAL r oute twice daily. hydrocortisone (ANUSOL-HC) 2.5 % rectal cream 1 applicatio n by RECTAL route twice daily as needed. triamcinolone acetonide (KENALOG) 0.1 % cream Ap ply 1 application to affected area twice daily as needed. For eczematous rash on extremiti es and torso hydrALAZINE (APRESOLINE) 10 mg tablet Take 1 tab let by mouth four times daily as needed. For systolic blood pressure over 160 albuterol HFA (PROVENTIL HFA, VENTOLIN HFA) 90 m cg/actuation inhaler Inhale 2 Puffs as instructed every 6 hours as needed. albuterol (PROVENTIL) 2.5 mg /3 mL (0.083 %) nebulizer solution Use 3 mL via nebulizer three times daily as needed. OVER 5-15 MINUTES. FO R WHEEZING AND SHORTNESS OF BREATH. TRIAMCINOLONE ACETONIDE TOPICAL Apply to affected area. COMPOUNDED PRESCRIPTION Nebulizer for home use. Diagnosis: E mphysema, COPD exacerbation. Lifetime use. Blood Pressure Cuff - Home Use BLOOD PRESSURE CUFF FOR FARHAN E USE. DX: LABILE BLOOD PRESSURE R09.89 Kptnxpqlvnr-Nbwivbblz-Rwr C-Mn (GLUCOSAM INE CHONDROITIN MAXSTR) 500-400 mg cap Take 1 capsule by mouth once daily. citalopram (CELEXA) 20 mg tablet Take 1 tablet by mouth once daily. GUAIFENESIN ORAL Take by mouth. REVIEW OF SYSTEMS: GENERAL: Negative for: Weigh t loss or gain, Fever or Chills, Weakness and Sleep difficulties. Physical Examination: BP 126/84 (BP Site: Left Arm, BP Position: Sitting, BP Cuff Size: Regular Adult) Pulse 76 Resp 16 Wt 66.2 kg (146 lb) BMI 22.2 0 kg/m? General appearance: Well claudine earing, alert, in no acute distress, well-hydrated, well nourished. Skin: Skin color, texture, turgor normal, no suspicious rash es or lesions Neck: Supple, no adenopathy; thyroid symmetric, normal size, no bruits Lungs: Lungs clear to auscultation. No wheezing, rhonchi, ra les Heart: RRR without murmur, gallop, or rubs. Abdomen: Abdomen soft, non-t joanie. Bowel sounds normal. No masses, organomegaly Extremities: No d edema, skin discoloration, clubbing or cya nosis. Good capillary refill. Peripheral pulses: Normal Neuro: Gait normal. . Sensation grossly intact. Reviewed chart, outside records, tests PDMP website checked and validated. All prescrip tions have been APPROPRIATELY filled. No suspicious activity was identified. 01/16/2018 by Irvin Montero APRN.AUTOMOTIVE SERVICE DIRECTOR I personally interviewed, confirmed and edited the above inf ormation if obtained by others. TESTING: Component Latest Ref Rng AND Units 04/04/2017 10/08/2017201809/10/2018 09/28/2018 10/15/2018 10/23/2018 Protein, Total 6.3 - 8.0 g/dL 6.2 (L) 6.2 (L) Albumin 3.9 - 4.9 g/dL 4.0 3.9 Calcium 8.5 - 10.2 mg/dL 9.1 9.4 Bilirubin, Total 0.2 - 1.3 mg/dL 0.3 0.3 Alkaline Phosphatase 34 - 123 U/L 97 119 AST 13 - 35 U/L 34 171 (H) Glucose 74 - 99 mg/dL 85 90 BUN 7 - 21 mg/dL 14 14 Creatinine 0.58 - 0.96 mg/dL 0.87 1.02 (H) Sodium 136 - 144 mmol/L 141 142 Potassium 3.7 - 5.1 mmol/L 4.7 4.6 Chloride 97 - 105 mmol/L 102 103 CO2 22 - 30 mmol/L 28 29 Anion Gap 9 - 18 mmol/L 11 10 ALT 7 - 38 U/L 37 120 (H) eGFR- >60 >60 eGFR-All Other Races . >60 52 WBC 3.70 - 11.00 k/uL 5.65 4.75 6.43 RBC 3.90 - 5.20 m/uL 4.32 4.57 4.58 Hemoglobin 11.5 - 15.5 g/dL 11.7 12.4 12.4 Hematocrit 36.0 - 46.0 % 39.3 40.9 40.2 MCV 80.0 - 100.0 fL 91.0 89.5 87.8 MCH 26.0 - 34.0 pG 27.1 27.1 27.1 MCHC 30.5 - 36.0 g/dL 29.8 (L) 30.3 (L) 30.8 RDW-CV 11.5 - 15.0 % 13.6 13.5 14.1 Platelet Count 150 - 400 k/uL 277 262 285 MPV 9.0 - 12.7 fL 10.4 10.2 10.1 Absolute nRBC <0.01 k/uL <0.01 <0.01 0.01 (H) Cholesterol, Total <200 mg/dL 190 184 Triglyceride <150 mg/dL 97 70 HDL Cholesterol >39 mg/dL 81 82 LDL Cholesterol <100 mg/dL 90 88 Non HDL Cholesterol <130 mg/dL 109 102 Fasting Time hrs 12 10 VLDL Cholesterol <30 mg/dL 19 14 TC:HDL Ratio <5.10 2.35 2.24 LDL:HDL Ratio <2.54 1.11 1.07 Lactose, Fasting 74 - 99 mg/dL 81 Lactose, 30 min mg/dL 117 Lactose, 60 min mg/dL 78 Lactose, 90 min mg/dL 64 Lactose, 120 min mg/dL 76 TSH 0.400 - 5.500 uU/mL 2.230 Occult Blood, Stool Negative Positive (A) 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 . . . Ejection Fraction: No results found IMPRESSION: Ms. Espino is a 83 year old woman presents for [facility] [address] [facility] discharge follow up visit. After my examination and review of data, I make the following recommendations. PLAN AND RECOMMENDATIONS: 1. Atherosclerosis of coronary artery of [place] heart without angina pectoris, unspecified vessel or lesion type - ICD9: 414.01, ICD10: I25 .10 (primary diagnosis) Following with cardiology, no current symptoms - TSH BLD - CBC - COMP METABOLIC PANEL 2. Pulmonary emphysema, unspecified emph ysema type (HCC) - ICD9: 492.8, ICD10: J43.9 Currently controlled, has an inhaler or nebulizer at home cu rrently not smoking. Continue current treatments. Continue to monitor - TSH BLD - CBC - COMP METABOLIC PANEL 3. Mixed hyperlipidemia - ICD9: 272.2, ICD10: E78.2 No adverse effects of medication noted, continue with curren t treatment unchanged for now, continue to monitor - TSH BLD - LIPID PANEL, NONFASTING 4. Spinal stenosis, unspecified spinal region - ICD9: 724. 00, ICD10: M48.00 No adverse effects of medication noted, continue with curren t treatment unchanged for now, continue to monitor 5. Other depression - ICD9: 311, ICD10: F32.89 Continue with current treatment unchanged for now, continue to monitor - TSH BLD - CBC - COMP METABOLIC PANEL 6. Leg pain, right - ICD9: 729.5, ICD10: M79.604 7. Pain in the muscles, right leg - ICD9: 729.1, ICD10: M79. 10 8. Spinal stenosis of lumbar region, unspecified whether yoselin rogenic claudication present - ICD9: 724.02, ICD10: M48.061 9. Chronic pain syndrome - ICD9: 338.4, ICD10: G89.4 10. Radiculopathy with lower extremity symptoms - ICD9 : 724.4, ICD10: M54.10 - OXYCODONE-ACETAMINOPHEN 10 MG-325 MG TABLET - OXYCODONE-ACETAMINOPHEN 10 MG-325 MG TABLET - OXYCODONE-ACETAMINOPHEN 10 MG-325 MG TABLET Refer to pain management +/- physical therapy if she so desires, defers for now. Continue with current pain treatment unchanged for now , continue to monitor. No reported adverse effects currently. follow up Q3 months check labs this visit or next, orders placed. Advised to go to ER if develops chest pain, shortness of juana ath, or severe worsening of symptoms. Discussed risks, benefits, alternatives, and potential side effects of medications. Ms. Espino expressed understanding and agreed with the plan . Irvin Montero APRN.AUTOMOTIVE SERVICE DIRECTOR Referring Provider: SELF [[id number]] Allergies As of Date: 01/21/2019 Noted Allergy Reaction AMBIEN (ZOLPIDEM) 12/28/2012 14 - Other: See Comments Comments: Hangover effect/body aches GABAPENTIN 07/18/2014 14 - Other: See Comments Comments: states that made me crazy; tremor and made her f orgetful SULFA (SULFONAMIDE ANTIBIOTICS) 08/07/2006 4 - Hives Date Reviewed: 01/21/2019 Reviewed by: Eli Hernández LPN - Fully Assessed Reason for Visit: F/U 3 Month [443] Primary Visit Diagnosis:Atherosclerosis of coronary artery o f [place] heart without angina pectoris, unspecified vessel or lesion type [I25.10] Other Visit Diagnoses:Pulmonary emphysema, unspecified emp hysema type (HCC) [J43.9] Mixed hyperlipidemia [E78.2] Spinal stenosis, unspecified spinal region [M48.00] Other depression [F32.89] Leg pain, right [M79.604] Pain in the muscles, right leg [M79.10] Spinal stenosis of lumbar region, unspecified whether neurogenic claudication present [M48.061] Comment:Percocet more effective than Hydrocodone. Will resume at [facility]. Chronic pain syndrome [G89.4] Radiculopathy with lower extremity symptoms [M54.10] Order(s):TSH BLD [SQTSH] Order #: [id number] FUTURE LIPID PANEL, NONFASTING [SQLIPNF] Order #: [id number] FUTURE CBC [SQCBC] Order #: [id number] FUTURE COMP METABOLIC PANEL [SQCMP] Order #: [id number] FUTURE [START ON 03/22/2019] oxyCODONE-acetaminophen (PERCOCET) 10-32 5 mg tabletTake 1 tablet by mouth twice daily for 30 days.Disp: 6 0 tabletRfl: 0 [START ON 02/20/2019] oxyCODONE-acetaminophen (PERCOCET) 10-3 25 mg tabletTake 1 tablet by mouth twice daily for 30 days.Disp: 6 0 tabletRfl: 0 oxyCODONE-acetaminophen (PERCOCET) 10-325 mg tabletTake 1 ta blet by mouth twice daily for 30 days.Disp: 60 tabletRfl: 0 Prescriptions as of 01/21/2019 Sig: OMEPRAZOLE 20 MG CAPSULE,MARY BETH* Take 2 capsules by mouth once * DONEPEZIL 5 MG TABLET Take 1 tablet by mouth daily * CLOPIDOGREL 75 MG TABLET Take 1 tablet by mouth once d* CARVEDILOL 3.125 MG TABLET Take 1 tablet by mouth twice * ATORVASTATIN 10 MG TABLET Take 1 tablet by mouth once d* AMITRIPTYLINE 50 MG TABLET Take 1 tablet by mouth daily * POLYETHYLENE GLYCOL 3350 17 G* Take one (1) bottle, as instr * BISACODYL 5 MG TABLET,DELAYED* Take two (2) tablets, at the * PHENYLEPHRINE 0.25 % RECTAL S* 1 Suppository by RECTAL route * HYDROCORTISONE 2.5 % TOPICAL * 1 application by RECTAL route * TRIAMCINOLONE ACETONIDE 0.1 %* Apply 1 application to affect * HYDRALAZINE 10 MG TABLET Take 1 tablet by mouth four t* ALBUTEROL SULFATE HFA 90 MCG/* Inhale 2 Puffs as instructed * ALBUTEROL SULFATE 2.5 MG/3 ML* Use 3 mL via nebulizer three * TRIAMCINOLONE ACETONIDE TOPIC* Apply to affected area. COMPOUNDED PRESCRIPTION Nebulizer for home use. Diagn* COMPOUNDED PRESCRIPTION BLOOD PRESSURE CUFF FOR HOME * [id number]-[id number]-JCY C-M* Take 1 capsule by mouth once * OXYCODONE-ACETAMINOPHEN 10 MG* Take 1 tablet by mouth twice * OXYCODONE-ACETAMINOPHEN 10 MG* Take 1 tablet by mouth twice * OXYCODONE-ACETAMINOPHEN 10 MG* Take 1 tablet by mouth twice * CITALOPRAM 20 MG TABLET Take 1 tablet by mouth once d* Patient not taking: Reported on 01/21/2019 GUAIFENESIN ORAL Take by mouth. Problem List As Of Date 01/21/2019 Noted Resolved Coronary atherosclerosis [I25.10] More... COPD (chronic obstructive pulmonary disease) (H* More... Unspecified Asthma [J45.909] More... Nonspecific abnormal results of liver function *INVALID FOR* 11/11/2011 CONSTIPATION NOS [K59.00] INVALID FOR* Mixed hyperlipidemia [E78.2] INVALID FOR* More... More... Former smoker [Z87.891] INVALID FOR* Spinal stenosis [M48.00] INVALID FOR* More... More... More... Insomnia [G47.00] INVALID FOR* More... Hearing loss [H91.90] INVALID FOR* Cerebrovascular accident (CVA) (HCC) [I63.9] INVALID FOR* Subdural hematoma (HCC) [S06.5X9A] INVALID FOR* Depression [F32.9] INVALID FOR* Uses hearing aid [Z97.4] INVALID FOR* More... Vascular dementia, uncomplicated [F01.50] INVALID FOR* More... Fall with injury [W19.XXXA] INVALID FOR* More... External otitis of right ear [H60.91] INVALID FOR* More... HTN (hypertension) [I10] INVALID FOR* More... DJD (degenerative joint disease) [M19.90] INVALID FOR* More... Chronic pain syndrome [G89.4] INVALID FOR* More... Prescriptions ordered this encounter Disp Refills Start End OXYCODONE-ACETAMINOPHEN 10 MG-325 MG* 60 t* 0 03/22/201907/2019 Class: Print RX Route: ORAL Sig: Take 1 tablet by mouth twice daily for 30 days. OXYCODONE-ACETAMINOPHEN 10 MG-325 MG* 60 t* 0 02/20/201908/2019 Class: Print RX Route: ORAL Sig: Take 1 tablet by mouth twice daily for 30 days. OXYCODONE-ACETAMINOPHEN 10 MG-325 MG* 60 t* 0 01/21/201909/2018 Class: Print RX Route: ORAL Sig: Take 1 tablet by mouth twice daily for 30 days. Medications Discontinued During This Encounter oxyCODONE-acetaminophen (PERCOCET) 1* 60 t* 0 10/16/20182018 Class: Print RX Route: ORAL Sig: Take 1 tablet by mouth twice daily for 30 days. Disc: Reason for discontinue is not on file. oxyCODONE-acetaminophen (PERCOCET) 1* 60 t* 0 11/15/20182018 Class: Print RX Route: ORAL Sig: Take 1 tablet by mouth twice daily for 30 days. Disc: Reason for discontinue is not on file. oxyCODONE-acetaminophen (PERCOCET) 1* 60 t* 0 12/15/201801/21 Class: Print RX Route: ORAL Sig: Take 1 tablet by mouth twice daily for 30 days. Disc: Reason for discontinue is not on file. Encounter Status:Closed by IRVIN BAL on 01/21/19 ct head w/o contrast on 2016-12-11 CT HEAD W/O CONTRAST Performed at [facility] 12-11-2016 [facility] APPROVED BY: Freddy, ([id number]) Lon Barraza MD EXAMINATION: CT BRAIN WITHOUT CONTRAST CLINICAL HISTORY: Subdural hemorrhage. S06.5X0A. TECHNIQUE: Routine CT scan of the brain without contrast. Serial axial unenhanced images were obtained from the vertex to the foramen magnum.M: [id number] CT Dose-Length Product (DLP): 794.52 mGy*cmCT Dose Reduction Employed: No dose reduction techniques were required. COMPARISON: CT head 11/24/2016. RESULT: Post-operative change: Prior bilateral mastoidectomy. Acute change: No evidence of an acute infarct or other acute parenchymal process. Hemorrhage: Resolution of previously noted left-sided subdural hemorrhage. Mass effect / Mass lesion: Pleural calcification along the left sphenoid greater wing is unchanged. There is no evidence of an intracranial mass or extraaxial fluid collection. No significant mass effect. Chronic change: None apparent. Ventricles: The ventricles are within normal limits of size and configuration for age. Paranasal sinuses and skull base: The visualized paranasal sinuses are clear. The skull base and imaged soft tissues are unremarkable. IMPRESSION: Interval resolution of small left subdural hematoma. phosphorus blood on 2016-11-25 Phosphate 3.7 2.5-4.9 mg/dL Normal 11-25-2016 [facility] (48437) Comment: Performed By: #### P8 ####[address] [address] mdrd gfr on 2016-11 eGFR (non-black) >60 >60mL/min/1.73m2 mL/min/{1.73_m2} Normal 11-25-2016 [facility] (15569) Comment: Result Comment: If the patie nt is , multiply the result by 1.210. Performed By: #### P8 ####[address] [address] magnesium blood on 2016-11-25 Magnesium 2.4 1.6-2.6 mg/dL Normal 11-25-2016 [facility] (15085) Comment: Performed By: #### P8 ####[address] [address] hemogram/diff on 01-12-10 Basophils Auto #/vol 0.03 0.01-0.08 thou/cmm Normal 7 [facility] ([facility] (00 000) Comment: Performed By: #### P8 ####[address] [address] Basophils/100 WBC Auto (Bld) 0.4 % Normal 0 11-25-2016 [facility] (46014) Comment: Performed By: #### P8 ####[address], [place] [address] Eosinophils 0.40 0.00-0.31 thou/cmm High 11-25-2016 [facility] (43155) Comment: Performed By: #### P8 ####[facility] [place], [place] [address] Eosinophils/100 leukocytes 4.8 % Normal [facility] (72662) Comment: Performed By: #### P8 ####[address] [address] Erythrocyte distribution 14.0 11.7-14.4 % Normal 11-25 [facility] width Auto Ratio (RBC) System (85779) Comment: Performed By: #### P8 ####[address] [address] Erythrocytes (RBC) 4.56 3.93-5.22 mil/cmm Normal 11-25-2016 [facility] (00 000) Comment: Performed By: #### P8 ####[address] [address] Hematocrit (HCT) 39.8 34.1-44.9 % Normal 11-25-2016 [facility] (20278) Comment: Performed By: #### P8 ####[address] [address] Hemoglobin mass conc 12.4 11.2-15.7 g/dL Normal 7 [facility] (d) [facility] (00 000) Comment: Performed By: #### P8 ####[address] [address] Immature Grans 0.40 % Normal 11-25-2016 [facility] (22680) Comment: Performed By: #### P8 ####[address] [address] Immature Grans # 0.03 0.00-0.05 thou/cmm Normal 11-25-2016 [facility] (00 000) Comment: Performed By: #### P8 ####[address] [address] Lymphocytes 1.81 1.18-3.74 thou/cmm Normal 11-25-2016 [facility] (71907) Comment: Performed By: #### P8 ####[facility] [place], [place] [address] Lymphocytes/100 leukocytes 21.7 % Normal [facility] (50800) Comment: Performed By: #### P8 ####[facility] [place], [place] [address] MCH 27.2 25.6-32.2 pg Normal 11-25-2016 [facility] (07178) Comment: Performed By: #### P8 ####[address] [address] MCHC mass conc (RBC) 31.2 31.6-34.8 % Low 7 [facility] (19529) Comment: Performed By: #### P8 ####[address] [address] MCV 87.3 79.4-94.8 fl Normal 11-25-2016 [facility] (87099) Comment: Performed By: #### P8 ####[address] [address] Monocytes 0.57 0.27-0.70 thou/cmm Normal 11-25-2016 [facility] (03512) Comment: Performed By: #### P8 ####[address] [address] Monocytes/100 leukocytes 6.8 % Normal 11-25 [facility] (51025) Comment: Performed By: #### P8 ####[address] [address] Platelet mean volume (PMV) 10.1 9.4-12.3 fl Normal [facility] (00 000) Comment: Performed By: #### P8 ####[address] [address] Platelets 261 182-369 thou/cmm Normal 11-25-2016 [facility] (00932) Comment: Performed By: #### P8 ####[facility] [place], [place] [address] RDW SD 45.2 36.4-46.3 fl Normal 11-25-2016 [facility] (18904) Comment: Performed By: #### P8 ####[facility] [place], [place] [address] Seg Neutrophil 65.9 % Normal 11-25-2016 [facility] (89249) Comment: Performed By: #### P8 ####[facility] [place], [place] [address] Seg. Neut.# 5.50 1.56-6.13 thou/cmm Normal 11-25-2016 [facility] (11673) Comment: Performed By: #### P8 ####[address] [address] WBC (Leukocytes) 8.35 3.98-10.04 thou/cmm Normal 11-25-2016 [facility] (00 000) Comment: Performed By: #### P8 ####[address] [address] basic panel on 2016 Creatinine 0.85 0.51-0.95 mg/dL Normal 11-25-2016 [facility] (47532) Comment: Performed By: #### P8 ####[address] [address] Anion gap 11 8-16 mmol/L Normal 11-25-2016 [facility] (51863) Comment: Performed By: #### P8 ####[address] [address] CO2 27 21-32 mEq/L Normal 11-25-2016 [facility] (98882) Comment: Performed By: #### P8 ####[place] [address] Glucose mass conc 85 70-99 mg/dL Normal 11-25-2016 [facility] (51116) Comment: Performed By: #### P8 ####[address] [place] [address], [place] [address] Urea nitrogen 12 7-18 mg/dL Normal 11-25-2016 [facility] (80266) Comment: Performed By: #### P8 ####[address] [address] Calcium 9.0 8.5-10.1 mg/dL Normal 11-25-2016 [facility] (59323) Comment: Performed By: #### P8 ####[address] [address] Chloride 106 98-107 mEq/L Normal 11-25-2016 [facility] (59247) Comment: Performed By: #### P8 ####[address] [address] Potassium molar conc 4.0 3.5-5.1 mEq/L Normal 7 [facility] (73571) Comment: Performed By: #### P8 ####[address] [address] Sodium 140 136-145 mEq/L Normal 11-25-2016 [facility] (52623) Comment: Performed By: #### P8 ####[address] [address] phosphorus blood on 2016-11-24 Phosphate 4.1 2.5-4.9 mg/dL Normal 11-24-2016 [facility] (90969) Comment: Performed By: #### P8 ####[address] [address] mdrd gfr on 2016-11 eGFR (non-black) >60 >60mL/min/1.73m2 mL/min/{1.73_m2} Normal 11-24-2016 [facility] (08864) Comment: Result Comment: If the patie nt is , multiply the result by 1.210. Performed By: #### P8 ####[address] [address] magnesium blood on 2016-11-24 Magnesium 2.2 1.6-2.6 mg/dL Normal 11-24-2016 [facility] (80591) Comment: Performed By: #### P8 ####[facility] [place], [place] [address] ionized calcium on 2016-11-24 Ionized Ca,PH7.4 4.32 4.36-4.73 mg/dL Low 11-24-2016 [facility] (40910) Comment: Performed By: #### PT ####[address] [address] Ionized Calcium 4.47 4.43-4.93 mg/dL Normal 11-24-2016 [facility] (19369) Comment: Performed By: #### PT ####[address] [address] pH of blood 7.333 7.320-7.420 [pH] Normal 11-24-2016 [facility] (05142) Comment: Performed By: #### PT ####[address] [address] hemogram/diff on 01-12-09 Basophils Auto #/vol 0.03 0.01-0.08 thou/cmm Normal 7 [facility] (00 000) Comment: Performed By: #### PT ####[address] [address] Basophils/100 WBC Auto (d) 0.5 % Normal 0 11-24-2016 [facility] (09816) Comment: Performed By: #### PT ####[address] [address] Eosinophils 0.34 0.00-0.31 thou/cmm High 11-24-2016 [facility] (26943) Comment: Performed By: #### PT ####[address] [address] Eosinophils/100 leukocytes 5.1 % Normal [facility] (57430) Comment: Performed By: #### PT ####[address] [address] Erythrocyte distribution 14.0 11.7-14.4 % Normal 11-24 [facility] Auto Ratio (RBC) System (90559) Comment: Performed By: #### PT ####[facility] [place], [place] [address] Erythrocytes (RBC) 3.75 3.93-5.22 mil/cmm Low 11-24-2016 [facility] (62863) Comment: Performed By: #### PT ####[place] [address] Hematocrit (HCT) 33.0 34.1-44.9 % Low 11-24-2016 [facility] (35372) Comment: Performed By: #### PT ####[place] [address] Hemoglobin mass conc (Bld) 10.1 11.2-15.7 g/dL Low [facility] (00 000) Comment: Performed By: #### PT ####[address] [address] Immature Grans 0.30 % Normal 11-24-2016 [facility] (99081) Comment: Performed By: #### PT ####[place] [address] Immature Grans # 0.02 0.00-0.05 thou/cmm Normal 11-24-2016 [facility] (00 000) Comment: Performed By: #### PT ####[place] [address] Lymphocytes 1.51 1.18-3.74 thou/cmm Normal 11-24-2016 [facility] (54692) Comment: Performed By: #### PT ####[address] [address] Lymphocytes/100 leukocytes 22.8 % Normal [facility] (26950) Comment: Performed By: #### PT ####[place] [address] MCH 26.9 25.6-32.2 pg Normal 11-24-2016 [facility] (61830) Comment: Performed By: #### PT ####[facility] [place], [place] [address] MCHC mass conc (RBC) 30.6 31.6-34.8 % Low 7 [facility] (43816) Comment: Performed By: #### PT ####[facility] [place], [place] [address] MCV 88.0 79.4-94.8 fl Normal 11-24-2016 [facility] (10002) Comment: Performed By: #### PT ####[address] [address] Monocytes 0.48 0.27-0.70 thou/cmm Normal 11-24-2016 [facility] (32737) Comment: Performed By: #### PT ####[address] [address] Monocytes/100 leukocytes 7.2 % Normal 11-24 [facility] (08349) Comment: Performed By: #### PT ####[address] [address] Platelet mean volume (PMV) 10.2 9.4-12.3 fl Normal [facility] (00 000) Comment: Performed By: #### PT ####[address] [address] Platelets 239 182-369 thou/cmm Normal 11-24-2016 [facility] (20981) Comment: Performed By: #### PT ####[facility] [place], [place] [address] RDW SD 45.4 36.4-46.3 fl Normal 11-24-2016 [facility] (73654) Comment: Performed By: #### PT ####[facility] [place], [place] [address] Seg Neutrophil 64.1 % Normal 11-24-2016 [facility] (25166) Comment: Performed By: #### PT ####[address] [place] [address] Seg. Neut.# 4.25 1.56-6.13 thou/cmm Normal 11-24-2016 [facility] (15710) Comment: Performed By: #### PT ####[facility] [place], [place] [address] WBC (Leukocytes) 6.63 3.98-10.04 thou/cmm Normal 11-24-2016 [facility] (00 000) Comment: Performed By: #### PT ####[address] [address] [address] head w/o contrast on 2016-11-24 CT HEAD W/O CONTRAST Performed at [facility] 11-24-2016 [facility] APPROVED BY: Mona, ([id number]) Mickey Castro MD BRAIN CT WITHOUT CONTRAST ENHANCEMENT Serial transverse images of the brain were obtained without contrast material. The study was performed beyond 24 hours of arrival to evaluate intracranial hemorrhage. CT Dose-Length Product (DLP): 828 mGy*cmCT Dose Reduction Employed: 5 Serial images redemonstrate the presence of an acute left cerebral convexity subdural hematoma estimated to measure approximately 5-10 mm in maximal thickness. The current study demonstrates minimal extension along the left tentorium as well. Mass effect remains limited to partial effacement of sulci, the left sylvian fissure, as well as of the left lateral ventricle. Again, there is only minimal left to right midline shift. The overall size of the ventricular system is within normal limits. IMPRESSION: Acute left-sided supratentorial subdural hematoma as described above with only mild associated mass effect. Except for minimal extension along the left tentorium, the hematoma is not significantly changed when compared with the previous study from 11/23/16. basic panel on 2016 Creatinine 0.83 0.51-0.95 mg/dL Normal 11-24-2016 [facility] (42898) Comment: Performed By: #### PT ####[address] [address] Anion gap 10 8-16 mmol/L Normal 11-24-2016 [facility] (43393) Comment: Performed By: #### PT ####[facility] [place], [place] [address] Calcium 8.0 8.5-10.1 mg/dL Low 11-24-2016 [facility] (87662) Comment: Performed By: #### PT ####[facility] [place], [place] [address] CO2 28 21-32 mEq/L Normal 11-24-2016 [facility] (47113) Comment: Performed By: #### PT ####[facility] [place], [place] [address] Glucose mass conc 84 70-99 mg/dL Normal 11-24-2016 [facility] (85372) Comment: Performed By: #### PT ####[address] [address] Urea nitrogen 15 7-18 mg/dL Normal 11-24-2016 [facility] (49907) Comment: Performed By: #### PT ####[address] [address] Chloride 107 98-107 mEq/L Normal 11-24-2016 [facility] (37842) Comment: Performed By: #### PT ####[address] [address] Potassium molar conc 4.5 3.5-5.1 mEq/L Normal 7 [facility] (95141) Comment: Performed By: #### PT ####[address] [address] Sodium 140 136-145 mEq/L Normal 11-24-2016 [facility] (10242) Comment: Performed By: #### PT ####[address] [address] urine hcg, qual. on 2016 HCG.beta subunit Negative Negative Normal 2016 [facility] ( test) Ql (U) System (83309) Comment: Performed By: #### PT ####[address] [address] Specific [place], Ur 1.014 1.005-1.030 Normal 017 [facility] (00 000) Comment: Performed By: #### PT ####[facility] [place], [place] [address] urinalysis routine on 2016 Ep Cells Urine 0.3 0.0-5.0 /hpf Normal 2016 [facility] (04654) Comment: Performed By: #### PT ####[facility] [place], [place] [address] Hyaline Cast 0.3 0.0-1.0 /lpf Normal 2016 [facility] (86036) Comment: Performed By: #### PT ####[address] [address] Urine, bacteria in sediment NONE None Normal [facility] (22625) Comment: Performed By: #### PT ####[address] [address] Urine, erythrocytes in 4.1 0.0-5.0 /hpf Normal 017 [facility] sediment by area Sys tem (52678) Comment: Performed By: #### PT ####[address] [address] Urine, leukocytes in 1.0 0.0-5.0 /hpf Normal 7 [facility] sedmiment System (00 000) Comment: Performed By: #### PT ####[address] [address] Bilirubin Urine NEGATIVE Negative Normal 2016 [facility] (52186) Comment: Performed By: #### PT ####[address] [address] Hemoglobin,Urine NEGATIVE Negative Normal 2016 [facility] (71875) Comment: Performed By: #### PT ####[address] [address] Ketone Urine NEGATIVE Negative Normal 2016 [facility] (69200) Comment: Performed By: #### PT ####[address] [place] [address], [place] [address] Nitrites Urine NEGATIVE Negative Normal 2016 [facility] (09109) Comment: Performed By: #### PT ####[facility] [place], [place] [address] Protein Urine NEGATIVE Negative Normal 2016 [facility] (58968) Comment: Performed By: #### PT ####[facility] [place], [place] [address] Specific [place], Ur 1.014 1.005-1.030 Normal 017 [facility] (00 000) Comment: Performed By: #### PT ####[address] [address] Urine, appearance CLEAR Normal 2016 [facility] (12733) Comment: Performed By: #### PT ####[address] [address] Urine, color YELLOW Normal 2016 [facility] (02735) Comment: Performed By: #### PT ####[address] [address] Urine, glucose presence NEGATIVE Negative Normal 2016 [facility] (00 000) Comment: Performed By: #### PT ####[address] [address] Urine, pH 7.5 5.0-8.0 [pH] Normal 2016 [facility] (39678) Comment: Performed By: #### PT ####[address] [address] Urobilinogen,Ur 0.2 0.0-1.0 EU/dL Normal 2016 [facility] (39222) Comment: Performed By: #### PT ####[address] [address] WBC (Leukocytes) TRACE Negative Abnormal 2016 [facility] (02107) Comment: Performed By: #### PT ####[address] [address] ur/serum drug screen on 2016 Urine Amphetamine Non-detected Non-Detected Normal 2016 [facility] (00 000) Comment: Performed By: #### DRUG3 ### #[facility] [place], [place] [address] Urine Barbiturates Non-detected Non-Detected Normal 11-23 [facility] (00 000) Comment: Performed By: #### DRUG3 ### [address] [address] Urine Benzodiazepine Non-detected Non-Detected Normal [facility] tem (28063) Comment: Performed By: #### DRUG3 ### [address] [address] Urine Cocaine Metab Non-detected Non-Detected Normal [facility] tem (98967) Comment: Performed By: #### DRUG3 ### [address] [address] Urine Opiate see below Non-Detected Normal 2016 [facility] (23747) Comment: Result Comment: Detected (un confirmed) Performed By: #### DRUG3 ### [address] [address] Urine PCP Non-detected Non-Detected Normal 2016 [facility] (16085) Comment: Performed By: #### DRUG3 ### [address] [address] Urine THC Non-detected Non-Detected Normal 2016 [facility] (98423) Comment: Result Comment: Urine Drug C utoff LevelsUrine Amphetamine 500 ng/mLUrine Barbituate 200 ng/mLUrine Be nzodiazepines 200 ng/mLUrine Cocaine 150 ng/mLUrine Phencyclidine (PC P) 25 ng/mLUrine Opiates 300 ng/mLUrine THC 50 ng/mLThe results of these an alytes are unconfirmed and reportedqualitatively as detected or non-detected relative to the cutoff value.Detected results indicate the sample is likel y to contain the analyte.Non-detected results indicate that either the thierry ple does notcontain the analyte or it is present in concentrations belowthe c utoff level. This drug screen should be used for medical diagnosticpurposes o nly. Performed By: #### DRUG3 ### #[place] [address] Acetaminophen mass conc 6.0 10.0-30.0 mg/L Low 2016 [facility] (11035) Comment: Performed By: #### DRUG3 ### #[place] [address] Serum Alcohol < 3 Normal 2016 [facility] (70458) Comment: Performed By: #### DRUG3 ### #[place] [address] Serum Salicylate < 1.7 2.8-20.0 Low 2016 [facility] (80812) Comment: Performed By: #### DRUG3 ### #[place] [address] type and screen on 2016 ABO group O Normal 2016 [facility] (57904) Comment: Performed By: #### T&S ####A [place] [address] Antibody Screen NEGATIVE Normal 2016 [facility] (76973) Comment: Performed By: #### T&S ####[place] [address] Comment See Below Normal 2016 [facility] (02529) Comment: Result Comment: Screen &/or Xmatch expires in 3 days at 12 midnight. Redrawpatient at that time. Performed By: #### T&S ####[place] [address] RH Type Positive Normal 2016 [facility] (97508) Comment: Performed By: #### T&S ####A [place] [address] protime on INR Coag RelTime (PPP) 0.97 {INR} Normal 017 [facility] (03793) Comment: Result Comment: Standard The rapy 2.0-3.0High Dose 2.5-3.5 Performed By: #### PT ####[facility] [place], [place] [address] Prothrombin time (PT) Coag 10.5 9.3-11.9 sec Normal [facility] time (PPP) System (0 0000) Comment: Performed By: #### PT ####[facility] [place], [place] [address] phosphorus blood on 2016 Phosphate 3.4 2.5-4.9 mg/dL Normal 2016 [facility] (63718) Comment: Performed By: #### PT ####[address] [address] pheresed plts unit 1 on 2016 Pheresed Plts unit 1 Done Normal 7 [facility] (42947) Comment: Performed By: #### PPHR #### [address] [address] mrsa screen on 2016 MRSA Screen Test performed at [facility] Normal 2016 [facility] No MRSA detected. Sy stem (27456) Comment: Performed By: #### P8 ####[address] [address] mdrd gfr on 2016-11 eGFR (non-black) >60 >60mL/min/1.73m2 mL/min/{1.73_m2} Normal 2016 [facility] (66421) Comment: Result Comment: If the patie nt is , multiply the result by 1.210. Performed By: #### PT ####[address] [address] eGFR (non-black) >60 >60mL/min/1.73m2 mL/min/{1.73_m2} Normal 2016 [facility] (85452) Comment: Result Comment: If the patie nt is , multiply the result by 1.210. Performed By: #### GFR ####A [address] [address] magnesium blood on 2016 Magnesium 2.2 1.6-2.6 mg/dL Normal 2016 [facility] (63066) Comment: Performed By: #### PT ####[address] [address] ionized calcium on 2016 Ionized Ca,PH7.4 4.23 4.36-4.73 mg/dL Low 2016 [facility] (04557) Comment: Performed By: #### IONCA ### [address] [address] Ionized Calcium 4.37 4.43-4.93 mg/dL Low 2016 [facility] (03483) Comment: Performed By: #### IONCA ### [address] [address] pH of blood 7.337 7.320-7.420 [pH] Normal 2016 [facility] (49862) Comment: Performed By: #### IONCA ### [address] [address] hemogram/diff on 01-12-08 Basophils Auto #/vol 0.04 0.01-0.08 thou/cmm Normal 7 [facility] (00 000) Comment: Performed By: #### CBCD1 ### [address] [address] Basophils/100 WBC Auto (d) 0.5 % Normal 0 2016 [facility] (81770) Comment: Performed By: #### CBCD1 ### [address] [address] Eosinophils 0.46 0.00-0.31 thou/cmm High 2016 [facility] (14254) Comment: Performed By: #### CBCD1 ### #[facility] [place] [address] Eosinophils/100 leukocytes 5.2 % Normal [facility] (73999) Comment: Performed By: #### CBCD1 ### #[facility] [place] [address] Erythrocyte distribution 13.8 11.7-14.4 % Normal 11-23 [facility] Auto Ratio (RBC) System (91552) Comment: Performed By: #### CBCD1 ### #[place] [address] Erythrocytes (RBC) 4.06 3.93-5.22 mil/cmm Normal 2016 [facility] (00 000) Comment: Performed By: #### CBCD1 ### #[place] [address] Hematocrit (HCT) 35.3 34.1-44.9 % Normal 2016 [facility] (40590) Comment: Performed By: #### CBCD1 ### #[place] [address] Hemoglobin mass conc (Bld) 10.9 11.2-15.7 g/dL Low [facility] (00 000) Comment: Performed By: #### CBCD1 ### #[place] [address] Immature Grans 0.20 % Normal 2016 [facility] (17067) Comment: Performed By: #### CBCD1 ### #[place] [address] Immature Grans # 0.02 0.00-0.05 thou/cmm Normal 2016 [facility] (00 000) Comment: Performed By: #### CBCD1 ### #[place] [address] Lymphocytes 2.19 1.18-3.74 thou/cmm Normal 2016 [facility] (15887) Comment: Performed By: #### CBCD1 ### #[place] [address] Lymphocytes/100 leukocytes 24.8 % Normal [facility] (52170) Comment: Performed By: #### CBCD1 ### [address] [address] MCH 26.8 25.6-32.2 pg Normal 2016 [facility] (72804) Comment: Performed By: #### CBCD1 ### [address] [address] MCHC mass conc (RBC) 30.9 31.6-34.8 % Low 7 [facility] (11474) Comment: Performed By: #### CBCD1 ### [address] [address] MCV 86.9 79.4-94.8 fl Normal 2016 [facility] (44481) Comment: Performed By: #### CBCD1 ### [address] [address] Monocytes 0.59 0.27-0.70 thou/cmm Normal 2016 [facility] (27154) Comment: Performed By: #### CBCD1 ### [address] [address] Monocytes/100 leukocytes 6.7 % Normal 11-23 [facility] (48571) Comment: Performed By: #### CBCD1 ### [address] [address] Platelet mean volume (PMV) 10.2 9.4-12.3 fl Normal [facility] (00 000) Comment: Performed By: #### CBCD1 ### [address] [address] Platelets 265 182-369 thou/cmm Normal 2016 [facility] (50458) Comment: Performed By: #### CBCD1 ### [address] [address] RDW SD 44.0 36.4-46.3 fl Normal 2016 [facility] (75343) Comment: Performed By: #### CBCD1 ### [address] [address] Seg Neutrophil 62.6 % Normal 2016 [facility] (58809) Comment: Performed By: #### CBCD1 ### [address] [address] Seg. Neut.# 5.53 1.56-6.13 thou/cmm Normal 2016 [facility] ([id number]) Comment: Performed By: #### CBCD1 ### [address] [address] WBC (Leukocytes) 8.84 3.98-10.04 thou/cmm Normal 2016 [facility] (00 000) Comment: Performed By: #### CBCD1 ### [address] [address] Basophils Auto #/vol 0.04 0.01-0.08 thou/cmm Normal 7 [facility] (d[facility] (00 000) Comment: Performed By: #### CBCD1 ### [address] [address] Basophils/100 WBC Auto (Bld) 0.5 % Normal 0 2016 [facility] (10625) Comment: Performed By: #### CBCD1 ### [address] [address] Eosinophils 0.47 0.00-0.31 thou/cmm High 2016 [facility] (78810) Comment: Performed By: #### CBCD1 ### [address] [address] Eosinophils/100 leukocytes 5.7 % Normal [facility] (97899) Comment: Performed By: #### CBCD1 ### [address] [address] Erythrocyte distribution 13.8 11.7-14.4 % Normal 11-23 [facility] width Auto Ratio (RBC) System (15774) Comment: Performed By: #### CBCD1 ### #[facility] [place], [place] [address] Erythrocytes (RBC) 4.33 3.93-5.22 mil/cmm Normal 2016 [facility] (00 000) Comment: Performed By: #### CBCD1 ### [address] [address] Hematocrit (HCT) 37.5 34.1-44.9 % Normal 2016 [facility] (29452) Comment: Performed By: #### CBCD1 ### [address] [address] Hemoglobin mass conc 11.9 11.2-15.7 g/dL Normal 7 [facility] (00 000) Comment: Performed By: #### CBCD1 ### [address] [address] Immature Grans 0.20 % Normal 2016 [facility] (41150) Comment: Performed By: #### CBCD1 ### [address] [address] Immature Grans # 0.02 0.00-0.05 thou/cmm Normal 2016 [facility] (00 000) Comment: Performed By: #### CBCD1 ### [address] [address] Lymphocytes 2.14 1.18-3.74 thou/cmm Normal 2016 [facility] (65720) Comment: Performed By: #### CBCD1 ### [address] [address] Lymphocytes/100 leukocytes 25.8 % Normal [facility] (57298) Comment: Performed By: #### CBCD1 ### [address] [address] MCH 27.5 25.6-32.2 pg Normal 2016 [facility] (23024) Comment: Performed By: #### CBCD1 ### [address] [address] MCHC mass conc (RBC) 31.7 31.6-34.8 % Normal 7 [facility] (20114) Comment: Performed By: #### CBCD1 ### [address] [address] MCV 86.6 79.4-94.8 fl Normal 2016 [facility] (42775) Comment: Performed By: #### CBCD1 ### [address] [address] Monocytes 0.58 0.27-0.70 thou/cmm Normal 2016 [facility] (08817) Comment: Performed By: #### CBCD1 ### [address] [address] Monocytes/100 leukocytes 7.0 % Normal 11-23 [facility] (39119) Comment: Performed By: #### CBCD1 ### [address] [address] Platelet mean volume (PMV) 9.9 9.4-12.3 fl Normal [facility] (00 000) Comment: Performed By: #### CBCD1 ### [address] [address] Platelets 251 182-369 thou/cmm Normal 2016 [facility] (04378) Comment: Performed By: #### CBCD1 ### [address] [address] RDW SD 43.6 36.4-46.3 fl Normal 2016 [facility] (37665) Comment: Performed By: #### CBCD1 ### [address] [address] Seg Neutrophil 60.8 % Normal 2016 [facility] (95495) Comment: Performed By: #### CBCD1 ### #[facility] [place], [place] [address] Seg. Neut.# 5.05 1.56-6.13 thou/cmm Normal 2016 [facility] (58321) Comment: Performed By: #### CBCD1 ### #[facility] [place], [place] [address] WBC (Leukocytes) 8.31 3.98-10.04 thou/cmm Normal 2016 [facility] (00 000) Comment: Performed By: #### CBCD1 ### #[facility] [place], [place] [address] ct head w/o contrast on 2016 CT HEAD W/O CONTRAST Performed at [facility] 2016 [facility] APPROVED BY: Mona ([id number]) Mickey Castro MD BRAIN CT WITHOUT CONTRAST ENHANCEMENT Serial transverse images of the brain were obtained without contrast material. The study was technically limited due to artifact arising from patient motion and was performed within 24 hours of arrival to evaluate altered mental status. CT Dose-Length Product (DLP): 932 mGy*cmCT Dose Reduction Employed: 5 Serial images demonstrate the presence of an acute subdural hematoma overlying the left cerebral convexity estimated to measure approximately 5-10 mm in maximal thickness. Mass effect is manifested by partial effacement of sulci, the left sylvian fissure, as well as of the left lateral ventricle. Shift of midline structures from the left to the right is limited to several millimeters. The overall size of the ventricular system is within normal limits and there is no definite evidence of acute infarction or mass lesion. Postoperative changes are identified following bilateral mastoidectomies. IMPRESSION: Acute left cerebral convexity subdural hematoma as described above with only mild associated midline shift. basic panel on 2016 Creatinine 0.63 0.51-0.95 mg/dL Normal 2016 [facility] (38791) Comment: Performed By: #### PT ####[address] [address] Anion gap 9 8-16 mmol/L Normal 2016 [facility] (89714) Comment: Performed By: #### PT ####[facility] [place], [place] [address] CO2 28 21-32 mEq/L Normal 2016 [facility] (27617) Comment: Performed By: #### PT ####[facility] [place], [place] [address] Glucose mass conc 87 70-99 mg/dL Normal [facility] ([address]677[facility] Comment: Performed By: #### PT ####[facility] [place], [place] [address] Urea nitrogen 12 7-18 mg/dL Normal 2016 [facility] (65083) Comment: Performed By: #### PT ####[address] [address] Calcium 8.4 8.5-10.1 mg/dL Low 2016 [facility] (59130) Comment: Performed By: #### PT ####[address] [address] Chloride 107 98-107 mEq/L Normal 2016 [facility] (71355) Comment: Performed By: #### PT ####[address] [address] Potassium molar conc 4.3 3.5-5.1 mEq/L Normal 7 [facility] (60746) Comment: Performed By: #### PT ####[address] [address] Sodium 140 136-145 mEq/L Normal 2016 [facility] (15262) Comment: Performed By: #### PT ####[address] [address] Creatinine 0.76 0.51-0.95 mg/dL Normal 2016 [facility] (83968) Comment: Performed By: #### P8 ####[address] [address] Glucose mass conc 100 70-99 mg/dL High 2016 [facility] (08868) Comment: Performed By: #### P8 ####[address] [address] Urea nitrogen 14 7-18 mg/dL Normal 2016 [facility] (22403) Comment: Performed By: #### P8 ####[address] [address] Anion gap 8 8-16 mmol/L Normal 2016 [facility] (05473) Comment: Performed By: #### P8 ####[address] [address] Calcium 8.6 8.5-10.1 mg/dL Normal 2016 [facility] (39858) Comment: Performed By: #### P8 ####[place] [address] CO2 30 21-32 mEq/L Normal 2016 [facility] (08687) Comment: Performed By: #### P8 ####[place] [address] Chloride 105 98-107 mEq/L Normal 2016 [facility] (09649) Comment: Performed By: #### P8 ####[place] [address] Potassium molar conc 4.1 3.5-5.1 mEq/L Normal 7 [facility] (82518) Comment: Performed By: #### P8 ####[place] [address] Sodium 139 136-145 mEq/L Normal 2016 [facility] (01673) Comment: Performed By: #### P8 ####[place] [id number] amylase blood on 01-12-08 Amylase 31 25-115 U/L Normal 2016 [facility] (04547) Comment: Performed By: #### MARSHA ####[place] [address] clinical lists update: preload on 2016-10-14 Left ventricular 65 % Invalid Interpretation 10-14-2016 - [facility] Ejection fraction Code 10-14-2016 Wilver uribe (72082) office visit on 09-15-02 Documentation of Done Invalid Interpretation 04-19-2016 - [facility] current medications Code 04-19-2016 Group ([id number]) (procedure) clinical lists update: preload on 2016-03-26 Cholesterol 172 mg/dL Invalid Interpretation 03-26 - [facility] Code 03-26-2016 Group ([id number]) HDL Cholesterol 73 mg/dL Invalid Interpretation 0 03-26-2016 - [facility] Code 03-26-2016 Group ([id number]) LDL Cholesterol 73 mg/dL Invalid Interpretation 0 03-26-2016 - [facility] Code 03-26-2016 Group ([id number]) Triglyceride 129 mg/dL Invalid Interpretation 03-17 - [facility] Code 03-26-2016 Group (44 [id number]) office visit: mmm o n 2016-01-02 Tobacco use Former smoker Invalid 01-02-2016 - [facility] Interpretation Code 01-02-2016 Group ([id number]) clinical lists update: preload on 2015-12-09 very low density 20 mg/dL Invalid Interpretation 12-09-2015 - [facility] lipoproteins Code 12-09-2015 Group ([id number]) clinical lists update: preload on 2015-12-08 Hematocrit (HCT) 40.5 % Invalid 12-08-2015 - [facility] Interpretation Code 12-08-2015 Group ([id number]) Hemoglobin (HGB) 12.7 g/dL Invalid 12-08-2015 - [facility] Interpretation Code 12-08-2015 Group ([id number]) Platelets 259 10*3/mm3 Invalid 12-08-2015 - [facility] Interpretation Code 12-08-2015 Group ([id number]) WBC (Leukocytes) 6.4 10*9/L Invalid 12-08-2015 - [facility] Interpretation Code 12-08-2015 Group ([id number]) Vital Signs Vital Sign Description Value / Unit Date Location The following section is limited to 5 en tries per type and includes entries from the following time range: 20160419 - 3. BMI (Body Mass Index) 21.44 kg/m2 04-19-2016 - 04-19-2016 [facility] ([id number]) BP Diastolic 68 mm[Hg] 04-19-2016 - 04-19-2016 [facility] ([id number]) BP Systolic 98 mm[Hg] 04-19-2016 - 04-19-2016 [facility] ([id number]) BSA (Body Surface Area) 1.76 m2 04-19-2016 - 04-19-2016 [facility] ([id number]) Height 172.72 cm 01-02-2016 - 01-02-2016 [facility] ([id number]) Pulse (Heart Rate) 80 /min 04-19-2016 - 04-19-2016 [facility] ([id number]) Respiratory Rate 16 /min 04-19-2016 - 04-19-2016 [facility] ([id number]) Weight 63.96 kg 04-19-2016 - 04-19-2016 [facility] ([id number]) Encounters Date Type Reason Provider Location 12-11-2016 - [facility] 12-12-2016 [facility] JOSE FRANCISCO NO ([id number]) REFERRING DR KRISTYN FELTON 2016 Ambulatory [facility] (01053) 2016 - Evaluation and Traumatic subdural NO REFERRING DR Christopher [place]:CELSA 11-25-2016 management of hemorrhage without TRAUMA-ANTON [facility] inpatient [facility] consciousness, TRAUMA-ANTON [facility] JONO PALACIOS TRAUMA-ANTON [facility] 11-05-2019 - Patient encounter APPOINTMENT Delaney Onofre) [facility] 11-05-2019 procedure CANCELLED [facility] Comment: APPOINTMENT CANCELLED (Prima ry Dx) 11-26-2019 - Refill Pulmonary emphysema Sriram Villafuerte [place] [facility] 11-26-2019 [facility] Comment: Refill Request 10-27-2019 - 10-27-2019 Refill Pain in right lower Sriram Noy [facility] [place] [facility] Comment: Refill Request Procedures Procedure Name Date Provider Location BROWN NONAUTO PLATELETS 2016 PROVIDER UNKNOWN [facility] ([id number]) Follow Up Appt 6 months 04-19-2016 - [facility] 04-19-2016 ([id number]) MMM 04-19-2016 - [facility] 04-19-2016 ([id number]) Follow Up Appt 3 months 01-02-2016 - Bernadette Restrepo, [facility] 01-02-2016 PA-C ([id number]) PFM 01-02-2016 - Bernadette Restrepo [facility] 01-02-2016 PA-C ([id number]) Plan of Treatment Plan Description Date Location DTAP,TDAP,TD (3 - Td) DTAP,TDAP,TD (3 - Td) 04-17-2026 - [facility] 04-17-2026 ([id number]) DIABETES SCREEN DIABETES SCREEN 04-23-2022 - [facility] 04-23-2022 ([id number]) LDL CHOLESTEROL LDL CHOLESTEROL 08-09-2020 - [facility] 08-09-2020 ([id number]) INFLUENZA (#1) INFLUENZA (#1) 2019 - [facility] 11-16-2019 ([id number]) Appointment Appointment 10-16-2016 - [facility] 10-16-2016 (46076) Follow Up Appt 6 months Follow Up Appt 6 months 04-19-2016 - [facility] 04-19-2016 ([id number]) MMM MMM 04-19-2016 - [facility] 04-19-2016 ([id number]) Follow Up Appt 3 months Follow Up Appt 3 months 01-02-2016 - [facility] 01-02-2016 ([id number]) PFM PFM 01-02-2016 - [facility] 01-02-2016 ([id number]) SHINGRIX VACCINE (2 of SHINGRIX VACCINE (2 of 02-24-2012 - [facility] 3) 3) 02-24-2012 ([id number]) ADVANCE DIRECTIVE ADVANCE DIRECTIVE 2002 - [facility] inic DISCUSSION DISCUSSION 2002 ([id number]) SPIROMETRY SPIROMETRY 11-24-1955 - [facility] 11-24-1953 ([id number]) no information [facility] ([id number]) Immunizations Vaccine Notes Status Date Location Influenza Vaccine, influenza virus (completed) 12-17-2012 - [facility] Split-Non Spec vaccine, unspecified 12-17-2012 (4419 5) formulation Influenza Vaccine, influenza virus (completed) 01-01-2012 - [facility] Split-Non Spec vaccine, unspecified 01-01-2012 (4419 5) formulation Influenza Vaccine, influenza virus (completed) 01-06-2007 - [facility] Split-Non Spec vaccine, unspecified 01-06-2007 (4419 5) formulation Influenza Seasonal influenza, high dose (completed) 03-04-2018 - [facility] - High Dose - Age seasonal, 03-04-2018 ([id number]) 65+ preservative-free Influenza Seasonal influenza, high dose (completed) 01-20-2017 - [facility] - High Dose - Age seasonal, 01-20-2017 ([id number]) 65+ preservative-free Influenza Seasonal influenza, high dose (completed) 01-08-2016 - [facility] - High Dose - Age seasonal, 01-08-2016 ([id number]) 65+ preservative-free Influenza Seasonal influenza, high dose (completed) 02-10-2015 - [facility] - High Dose - Age seasonal, 02-10-2015 (57215) 65+ preservative-free Influenza Seasonal influenza, high dose (completed) 12-15-2012 - [facility] - High Dose - Age seasonal, 12-15-2012 ([id number]) 65+ preservative-free Influenza Seasonal influenza, seasonal, (completed) 12-28-2013 - [facility] Inj Age 3+ injectable 12-28-2013 ([id number]) Pneumococcal-13 Vac pneumococcal conjugate (completed) 08-04-2015 - [facility] Conjugate vaccine, 13 valent 08-04-2015 ([id number]) [facility]neumovax pneum[facility] ([facility]) [facility] 12-30-2011 (441 95) 23 valent Pneumovax pneumococcal (completed) [facility]-17-2004 [facility], 03-17-2004 (441 95) 23 valent Tetanus Diphtheria tetanus and diphtheria (completed) 04-17-2016 - [facility] Booster (Age >7) toxoids, adsorbed, 04-17-2016 (4419 5) Pres Free preservative free, for adult use (5 Lf of tetanus toxoid and 2 Lf of diphtheria toxoid) Tdap (Age 7+) tetanus toxoid, reduced (completed) 11-11-2011 - [facility] diphtheria toxoid, and 11-11-2011 (4419 5) acellular pertussis vaccine, adsorbed Zostavax zoster vaccine, live (completed) 12-30-2011 - [facility] 12-30-2011 ([id number]) Payers Payer Name Policy Number Location ANTHEM BLUE CROSS/PPO [id number] [facility] ([id number]) [employer] GOLD /MEDICARE [id number] [facility] ([id number]) [employer] MEDICARE [id number] ANEL ESPINO The following information is from the original human readable contentNo Payer Records FoundNo Payer Records FoundNo Payer Records Found Social History Type Social History Date Location Description Tobacco smoking status Former smoker 08-13-2019 - [facility] NHIS 08-13-2019 ([id number]) History of tobacco use Current smoker 12-04-2016 - [facility] 11-14-2017 (76858) History of tobacco use Cigarette Smoker 12-04-2016 - [facility] 11-14-2017 (29002) Cigarettes smoked 08-13-2019 - [facility] current (pack per day) 08-13-2019 (89068) - Reported Tobacco use and Never used 08-13-2019 [facility] exposure 08-13-2019 (91227) Alcohol intake Current drinker of 08-13-2019 [facility] satya alcohol (finding) 08-13-2019 (46307) Tobacco Comment Down to half PPD; quit 07-17-2018 - [facility] after became ill and 07-17-2018 (01273) fell Sex Assigned At Not on file [facility] (56155) Exposure to SARS-CoV-2 Not sure 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 Last Assessment & Plan: Superior umbilicus and left posterior calf, Sailaja Allen positive biopsies from September; had excisions completed through [facility]. Will follow annually every year, Due September 2012. 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 08/13/2019 Overview: With severe atypia, excised by Sailaja Montes De [place]ca Incontinence of feces 12/13/2009 08/13/2019 Benign neoplasm of colon 12/13/2009 08/13/2019 History of squamous cell carcinoma of skin 11/16/2009 08/13/2019 Overview: [facility] (hard of hearing) 11/16/2009 08/13/2019 Anemia, unspecified 01/14/2007 08/13/2019 Nonspecific abnormal results of liver function study 007 11/11/2011 Chronic obstructive asthma, unspecified 08/13/2019 Unspecified asthma, with status asthmaticus 08/13/2019 Unspecified asthma(493.90) 08/13/2019 Overview: Using albuterol only at present, daily u se Problem Noted Date Resolved Date External otitis of right ear 01/01/2018 08/13/2019 Overview: Per [facility] charges for 12/18/17 Chronic serous otitis media 09/07/2014 08/13/2019 Hoarseness 09/07/2014 08/13/2019 Basal cell carcinoma 09/25/2011 08/13/2019 Overview: Superior umbilicus and left posterior calf, Sailaja Allen.Will follow annually every year, Due September 2012. Last Assessment & Plan: Superior umbilicus and left posterior calf, Sailaja Allen positive biopsies from September; had excisions completed through [facility]. Will follow annually every year, Due September 2012. 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 08/13/2019 Overview: With severe atypia, excised by Sailaja Montes De [place]ca Incontinence of feces 12/13/2009 08/13/2019 Benign neoplasm of colon 12/13/2009 08/13/2019 History of squamous cell carcinoma of skin 11/16/2009 08/13/2019 Overview: [facility] (hard of hearing) 11/16/2009 08/13/2019 Anemia, unspecified 01/14/2007 08/13/2019 Nonspecific abnormal results of liver function study 007 11/11/2011 Chronic obstructive asthma, unspecified 08/13/2019 Unspecified asthma, with status asthmaticus 08/13/2019 Unspecified asthma(493.90) 08/13/2019 Overview: Using albuterol only at present, daily u se Problem Noted Date Resolved Date External otitis of right ear 01/01/2018 08/13/2019 Overview: Per [facility] charges for 12/18/17 Chronic serous otitis media 09/07/2014 08/13/2019 Hoarseness 09/07/2014 08/13/2019 Basal cell carcinoma 09/25/2011 08/13/2019 Overview: Superior umbilicus and left posterior calf, Sailaja Allen.Will follow annually every year, Due September 2012. Last Assessment & Plan: Superior umbilicus and left posterior calf, Sailaja Allen positive biopsies from September; had excisions completed through [facility]. Will follow annually every year, Due September 2012. 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 08/13/2019 Overview: With severe atypia, excised by Sailaja Montes De [place]ca Incontinence of feces 12/13/2009 08/13/2019 Benign neoplasm of colon 12/13/2009 08/13/2019 History of squamous cell carcinoma of skin 11/16/2009 08/13/2019 Overview: [facility] (hard of hearing) 11/16/2009 08/13/2019 Anemia, unspecified 01/14/2007 08/13/2019 Nonspecific abnormal results of liver function study 007 11/11/2011 Chronic obstructive asthma, unspecified 08/13/2019 Unspecified asthma, with status asthmaticus 08/13/2019 Unspecified asthma(493.90) 08/13/2019 Overview: Using albuterol only at present, daily u se Assessments Diagnosis Leg pain, right Pain in limb Pain in the muscles, right leg Mylagia and myositis, unspecified Spinal stenosis of lumbar region, unspec ified whether neurogenic claudication present Diagnosis APPOINTMENT CANCELLED - Primary Diagnosis Pulmonary emphysema, unspecified emphyse ma type (HCC) COPD, frequent exacerbations (HCC) Chronic airway obstruction, not elsewher e classified History of Present Illness Delaney Beth ([place]) - 11/05/2019 1:06 PM EDTPatient complaining of stroke like symptoms for the past week. Right arm and leg numbness. Referred to ER for further evaluation. Delaney Beth APRN.FEED RESEARCH AIDE documented in this encounter Additional Source Comments FOR RECORDS PERTAINING TO PATIENTS WHO ARE OR HAVE BEEN ENROLLED IN A CHEMICAL DEPENDENCY/SUBSTANCE ABUSE PROGRAM, SOME INFORMATION MAY BE OMITTED. This clinical summary was aggregated from multiple sources. Caution should be exercised in using it in the provision of clinical care. This summary normalizes information from multiple sources, and as a consequence, information in this document may materially changethe coding, format and clinical context of patient data. In addition, data may be omittedin some cases. CLINICAL DECISIONS SHOULD BE BASED ON THE PRIMARY CLINICAL RECORDS. [facility] provides no warranty or guarantee of the accuracy or completeness of information in this document. UNRECOGNIZED CONTENT PROVIDED BELOW FOR UNRECOGNIZED SECTION INFORMATION SOURCE DATE CREATED AUTHOR AUTHOR'S ORGANIZATIO N 09/10/2017 [facility] DATE CREATED AUTHOR AUTHOR'S ORGANIZATIO N 09/10/2017 [facility] DATE CREATED AUTHOR AUTHOR'S ORGANIZATIO N 12/28/2019 [facility] UNRECOGNIZED CONTENT PROVIDED BELOW FOR UNRECOGNIZED SECTION Source Comments In the event this information is protected by the Federal Confidentiality of Alcohol and Drug Abuse Patient Records regulations: The Federal rules restrict any use of the information to criminally investigate or prosecute any alcohol or drug abuse patient.[facility] the event this information is protected by the Federal Confidentiality of Alcohol and Drug Abuse Patient Records regulations: The Federal rules restrict any use of the information to criminally investigate or prosecute any alcohol or drug abuse patient.[facility] the event this information is protected by the Federal Confidentiality of Alcohol and Drug Abuse Patient Records regulations: The Federal rules restrict any use of the information to criminally investigate or prosecute any alcohol or drug abuse patient.[facility] UNRECOGNIZED CONTENT PROVIDED BELOW FOR UNRECOGNIZED SECTION Reason for Visit Reason Onset Date Comments Refill Request 10/27/2019 Reason Onset Date Comments Refill Request 11/26/2019 UNRECOGNIZED CONTENT PROVIDED BELOW FOR UNRECOGNIZED SECTION Miscellaneous Notes Telephone Encounter - Luis Zamarripa Ma - 10/28/2019 11:20 AM EDTPrescription was already sent can refill on 10/29/2019. Luis Zamarripa Ma elephone Encounter - Nieves Pérez - 10/27/2019 4:50 PM EDT Patient has been identified by name and date of : Yes Last office visit in this department: Visit date not found RX INSTRUCTIONS: Patient aware RX will be sent to pharmacy. No need to notify patient. Patient phones requesting refills as follows: Pending Prescriptions Disp Refills OXYCODONE-ACETAMINOPHEN 10 MG-325 MG TABLET 60 tablet 0 Sig: Take 1 tablet by mouth twice daily as needed for up to 30 days. as needed Do not start before November 28, 2019. DARELL Class: C-II JOS: No Please review and advise. Nieves Guevara PSS documented in this encounterTelephone Encounter - Katelyn Bernal LPN - 11/26/2019 11:58 AM EDTPatients inhaler was sent to her mail away pharmacy asking if it can be sent to her local pharmacy. Order pended. Please advise. documented in this encounter
== END ==
PROVIDERS: PCP Internal Medicine; Referring Provider Internal Medicine Cardiovascular Disease; Visit Provider Internal Medicine Cardiovascular Disease
DX: E78.00 Pure hypercholesterolemia, unspecified (principal)
CPT/HCPCS: 36415; 80061; 80076

== ENCOUNTER 2019-11-05 12:53 | Emergency (ER) | payer MEDICARE, SELFPAY ==
[2019-08-04 09:07] VITALS: BMI 21.4
[2019-11-05 12:53] VITALS: BP 151/86; PULSE 81; RESP 16; TEMP 36.3; O2SAT 97; BMI 20.8
--- NOTE | 2019-11-05 13:16 | ED.VIS.GEN ---
History of Present Illness <Ajay Burgess - Last Filed: 11/05/19 14:51> Informant: Patient Onset: Month(s) - 6 months Context: Gradual Onset Timing: Continuous Quality: Sharp pain Location: Right shoulder Current Severity: Severe Maximum Severity: Severe Worsened by: Movement Relieved by: Nothing Associated Symptoms: Denies Narrative: 83-year-old female history of chronic pain, CVA, CAD, cardiomyopathy presents to the emergency department with right shoulder pain. Patient has chronic right shoulder pain she gets frequent injections in her shoulder by her doctor and is on Percocet for this. She ran out of her Percocet early because she has been taking it too frequently. Denies any trauma or injury pain is consistent with her chronic pain. Denies any weakness or paresthesias. Denies chest pain or shortness of breath. She is not lightheaded or dizzy. No difficulties with speech or ambulation. No visual changes. Prior similar symptoms: Yes Recent Illness/Hospitalization: No <Urban Orozco - Last Filed: 11/05/19 16:09> Chief Complaint: Other, Pain/Inj Past Medical History - Family History Maternal Family History: Family History (Last Reviewed 08/04/19 @ 09:15 by Bernadette Marin) Father Myocardial infarction, Onset Age: 75 Paternal Family History: Family History (Last Reviewed 08/04/19 @ 09:15 by Bernadette Marin) Father Myocardial infarction, Onset Age: 75 <Ajay Burgess - Last Filed: 11/05/19 14:51> Prior records reviewed: Yes Past Medical History: - - CVA cardiomyopathy coronary artery disease hypertension hyperlipidemia Surgical History: - - Patient with lumbar and thoracic spinal interventions. Patient denies any PCI history. Smoking Status: Former smoker Drugs: None - Family History Maternal Family History: Family History (Last Reviewed 08/04/19 @ 09:15 by Bernadette Marin) Father Myocardial infarction, Onset Age: 75 Family History: Reports: High Cholesterol, Heart Disease, Hypertension Paternal Family History: Family History (Last Reviewed 08/04/19 @ 09:15 by Bernadette Marin) Father Myocardial infarction, Onset Age: 75 Family History: Reports: Heart Disease, Stroke <Urban Orozco - Last Filed: 11/05/19 16:09> - Allergies and Home Meds Allergies/Adverse Reactions: Allergies Sulfa (Sulfonamide Antibiotics) Allergy (Severe, Verified 11/05/19 12:55) Hives gabapentin Adverse Reaction (Verified 11/05/19 12:55) Other zolpidem [From Ambien] Adverse Reaction (Verified 11/05/19 12:55) Unknown Primary Care Physician: Natalee Spaulding MD [Primary Care Provider] - Review of Systems All systems negative except as indicated General: Denies: Chills, Fever, Sweats Eyes: Denies: Visual changes - bilaterally, Diplopia ENT: Denies: Rhinorrhea, Sore throat Cardiovascular: Denies: Chest pain, Palpitations Respiratory: Denies: Dyspnea, Cough, Dyspnea on exertion Gastrointestinal: Denies: Abdominal pain, Nausea, Vomiting, Diarrhea, Melena, Hematochezia Genitourinary: Denies: Dysuria, Hematuria, Frequency Musculoskeletal: Reports: Swelling, Extremity Pain. Denies: Myalgias, Arthralgias, Neck pain, Back pain Skin: Denies: Rash, Wounds Neurological: Denies: Headache, Weakness, Parasthesia, Numbness <Urban Orozco - Last Filed: 11/05/19 16:09> Physical Exam Vital Signs/Narrative: Vital Signs Temp Pulse Resp BP Pulse Ox 11/05/19 12:53 97.4 F L 81 16 151/86 H 97 <Ajay Burgess - Last Filed: 11/05/19 14:51> Vital Signs/Narrative: Vital Signs Temp Pulse Resp BP Pulse Ox 11/05/19 12:53 97.4 F L 81 16 151/86 H 97 Inital Vital Signs reviewed: Yes General: Well nourished, Well developed, No Acute Distress Head: Normocephalic, Atraumatic Eyes: Perrl, EOMI ENT: Moist mucous membranes, No rhinorrhea Neck: Supple, Nontender Cardiovascular: Regular rate, Regular rhythm, No murmurs Respiratory: No distress, CTA bilaterally, Chest nontender Abdomen: Soft, Nontender, Nondistended, Normal bowel sounds Back: Nontender, Normal Inspection Extremities: No edema, - - Normal inspection of right shoulder, and entire right upper extremity. Patient has normal range of motion actively but it is painful for her specifically with abduction. She has no bony tenderness of her clavicle scapula arm elbow forearm wrist or hand. She has normal range of motion actively of her right elbow and wrist. Radial pulse normal. Extruding Department Supervisor strength equal bilaterally. 5 out of 5 strength testing right upper extremity. Skin: Normal color, No rash Neurological: Alert, Oriented x3, Cranial nerves II-XII grossly intact, Normal Strength, Normal Sensation, Normal Gait. Negative for: Confused, Disoriented, Parasthesia, Left side facial droop, Right side facial droop Psychological: Normal affect, Normal Mood <Urban Orozco - Last Filed: 11/05/19 16:09> Diagnostic/Tx/Re-eval - Medical Decision Making Patient presents with pain in the right shoulder. This is an ongoing chronic issue for her. She was told she needs to have shoulder replacement surgery but she does not wish to have this. She is been prescribed Percocet through Dr. Spaulding she states for several years. She states she has been taking more than she should and has run out. Later we find out that she filled a new prescription and picked it up yesterday but when came to emergency today hoping that she could get something different. She also notes pain from the knee down which she describes as numbness but when I asked her she states that it is more painful when she walks. She has a normal neurologic exam. Limited range of motion of the right shoulder. I spoke with her primary care physician notes that she has a history of spinal stenosis. She is going to schedule appointment to meet with the patient talk about palliative care/pain management options. I performed a history and physical examination of the patient and discussed management plan with the physician legal support assistant. I reviewed the physician legal support assistant's note and agree with the documented findings and plan of care. Ajay Burgess DO, MS <Ajay Burgess - Last Filed: 11/05/19 14:51> ED Disposition <Ajay Burgess - Last Filed: 11/05/19 14:51> <Urban Orozco - Last Filed: 11/05/19 16:09> - Plan for ED Patient: Disposition: Home or Assisted Living Diagnosis: Right arm pain Instructions: ED Chronic Pain Referrals: Natalee Spaulding MD [Primary Care Provider] -
--- NOTE | 2019-11-05 13:43 | RAD_ITS ---
STUDY: X-RAY - RIGHT KNEE REASON FOR EXAM: Female, 83 years old. RT KNEE GAVE OUT, WEAKNESS TECHNIQUE: 4 view(s) of the knee. COMPARISON: None. FINDINGS: Normal visualized distal femur. Normal visualized proximal tibia and fibula. Normal proximal tibiofibular articulation. There is severe degenerative arthrosis of the medial femorotibial compartment with severe joint space narrowing. There is mild degenerative arthrosis of the lateral femorotibial compartment. There is mild degenerative arthrosis of the patellofemoral articulation. There is a moderate volume joint effusion. The soft tissue structures are unremarkable. RAD/Knee 4 or More Views IMPRESSION: Degenerative arthrosis. Electronically Signed: Vicente Vásquez, at 14:10 EDT Tel , Service support ,
[2019-11-05 14:52] VITALS: BP 118/84; RESP 18
== END 2019-11-05 14:57 | disposition home or self-care (01) ==
PROVIDERS: Emergency Provider Physician Assistant Medical; PCP Internal Medicine
DX: M25.561 Pain in right knee (principal); M79.601 Pain in right arm; G89.29 Other chronic pain; I10 Essential (primary) hypertension; E78.5 Hyperlipidemia, unspecified; I42.9 Cardiomyopathy, unspecified; I25.10 Atherosclerotic heart disease of native coronary artery without angina pectoris; M48.00 Spinal stenosis, site unspecified; Z86.73 Personal history of transient ischemic attack (TIA), and cerebral infarction without residual deficits; Z79.02 Long term (current) use of antithrombotics/antiplatelets; Z79.899 Other long term (current) drug therapy; Z87.891 Personal history of nicotine dependence
CPT/HCPCS: 73564; 99282

== ENCOUNTER 2020-04-14 15:48 | Outpatient (RCR) | payer MEDICARE, SELFPAY | END 2020-04-14 23:59 | LOC: IMMUN 15:48 | PROVIDERS: PCP Internal Medicine; Visit Provider Family Medicine | DX: Z23 Encounter for immunization (principal) | CPT/HCPCS: 0011A; 0012A; 91301 ==

== ENCOUNTER 2021-08-17 14:35 | Emergency (ER) | payer MEDICARE, SELFPAY ==
[2021-08-17 14:37] VITALS: BP 118/102; PULSE 98; RESP 28; TEMP 36.8; O2SAT 96; BMI 19.8
[2021-08-17 14:40] VITALS: BP 118/102; PULSE 97; RESP 33; TEMP 37.1; O2SAT 95
--- NOTE | 2021-08-17 14:53 | RAD_ITS ---
STUDY: X-RAY CHEST REASON FOR EXAM: Female, 85 years old. DYSPNEA TECHNIQUE: Single AP portable view of the chest. COMPARISON: 05/21/2017 FINDINGS: Power inspiration with some bibasilar atelectasis. There is no demonstrated pleural abnormality. There is moderate cardiac enlargement. Normal mediastinum and staci. Normal visualized pulmonary arteries. There is atherosclerotic tortuosity of the aortic arch and descending thoracic aorta. There is a levoscoliosis of the thoracic spine. Normal visualized ribs, clavicles, and shoulders. There is no demonstrated abnormality of the visualized soft tissue structures of the upper abdomen. RAD/Chest 1 View (Portable) IMPRESSION: Poor inspiration with bibasilar atelectasis. Electronically Signed: Phil Acevedo MD at 16:25 EDT ,
--- NOTE | 2021-08-17 14:54 | EKG12_ITS ---
Test Reason : SOB Blood Pressure : / mmHG Vent. Rate : 097 BPM Atrial Rate : 097 BPM P-R Int : 184 ms QRS Dur : 136 ms QT Int : 392 ms P-R-T Axes : 081 -02 094 degrees QTc Int : 497 ms Normal sinus rhythm Left bundle branch block Abnormal ECG Confirmed by CARINA TILLMAN, ISAIAH ([id number]), clinical editor JOB GAVIRIA ([id number]) on 08/20/2021 1:01:35 PM Referred By: SHAHRAM Confirmed By:ISAIAH LIM MD
--- NOTE | 2021-08-17 14:55 | CT_ITS ---
STUDY: CT BRAIN WITHOUT CONTRAST REASON FOR EXAM: Female, 85 years old. CONFUSION Individualized dose optimization techniques were used for this CT. TECHNIQUE: Transaxial CT imaging of the brain was performed without administration of intravenous contrast material. COMPARISON: 11/24/2017 FINDINGS: There are calcifications noted in the distal vertebral arteries. There are calcifications noted in the cavernous carotid arteries. This is consistent for atherosclerotic disease. Normal calvarium. Normal soft tissues. There is mild cerebral atrophy with widening of the extra-axial spaces and ventricular dilatation. There are areas of decreased attenuation within the white matter tracts of the supratentorial brain, consistent with microvascular disease changes. Normal basal ganglia and thalami. Normal brainstem. There is mild cerebellar atrophy. There is no intracranial hemorrhage. There are no findings of an acute ischemic infarction. Mastoidectomy changes. ASPECTS Score for Acute Strokes: 12/24 CT/Brain/Head without Contrast IMPRESSION: There are no acute findings. Chronic involutional changes of the brain. Electronically Signed: Chuck Goodson MD at 16:46 EDT ,
[2021-08-17] MEDS: Ipratropium/Albuterol Sulfate 3 ML AMPUL.NEB INHALATION (15:15)
[2021-08-17 15:16] VITALS: PULSE 105; RESP 23
[2021-08-17 15:23] LABS: Absolute Lymphocyte Count 1.12 X10^3/uL (0.83-4.51); Absolute Neutrophil Count 10.1 X10^3/uL (2.0-7.7); Basophil# 0.01 X10^3/uL; Basophil% 0.1 % (0-1); Eosinophil# 0.14 X10^3/uL; Eosinophils% 1.2 % (0-5); Hematocrit 43.3 % (37-47); Hemoglobin 13.2 g/dL (12.0-15.0); Lymphocyte # 1.12 X10^3/ul (0.83-4.51); Lymphocyte % 9.2 % (19-41); Mean Corp Hgb Conc 30.5 g/dL (32-36); Mean Corpuscular Hgb 26.8 pg (27.0-32.0); Mean Platelet Vol. 10.1 fl (6.2-12.0); Monocyte# 0.71 X10^3/uL; Monocyte% 5.8 % (0-10); NRBC Flagged by Analyzer 0 % (0-5); Neutrophil # 10.13 X10^3/uL (2.7-7.7); Neutrophil % 83.2 % (47-70); Platelet Count 274 K/mm3 (150-450); RBC Distribution Width CV 13.7 % (11.6-14.6); RBC Distribution Width SD 44.7 fl (35.1-43.9); Red Blood Count 4.92 M/mm3 (4.2-5.4); White Blood Count 12.2 K/mm3 (4.4-11.0)
[2021-08-17 15:31] LABS: AST(SGOT) 15 U/L (15-37); Alanine Aminotransfer ALT/SGPT 16 U/L (13-56); Albumin, Serum 3.8 g/dL (3.2-5.0); Alkaline Phosphatase 86 U/L (45-117); Anion Gap 4 (5-15); BUN 17 mg/dL (7-18); BUN/Creat Ratio 19.2 RATIO (10-20); Calcium,Total 9.2 mg/dL (8.5-10.1); Chloride 106 mmol/L (98-107); Creatinine, Serum 0.89 mg/dL (0.55-1.02); EST Glomerular Filtration Rate 65 mL/min (>60); Est Glom Filt Rate - Afr Amer 78 mL/min (>60); Estimated Creatinine Clearance 45.97 ml/min; Globulin 3.7 g/dL (2.2-4.2); Glucose 113 mg/dL (74-106); Potassium 4.6 mmol/L (3.5-5.1); Protein, Total 7.5 g/dL (6.4-8.2); Sodium Level 139 mmol/L (136-145); Troponin-I HS 6 pg/mL (3.0-54.0)
--- NOTE | 2021-08-17 15:40 | EDS_ITS ---
HPI History of Present Illness Chief Complaint: Shortness of Breath Narrative Narrative: 85-year-old female presenting with complaint of feeling cold. She states he is also little short of breath and she has a history of asthma. She presented to her primary care physician today for medication refill of her oxycodone which she takes normally and she was sent to the emergency room out of concern that she seemed a little bit confused. Apparently she had picked up her Percocet 10 325 mg on the and the bottle was missing. She had reported to her primary care physician that her son tried to buy the pain medicines from her and she refused and called the police. The police did come to the house and interviewed the son and he denied this. She states she wanted some pain medication this is why she came to the primary care physician's office. Here she is alert and awake. She does not appear to be any distress although she slightly tachypneic. She states she feels cold but she is not shaking. No fevers reported. No cough. Patient reports that her last use of Percocet was yesterday and now she is out. [facility] Medical History Abnormal ECG Atherosclerotic heart disease of [place] coronary artery without angina pectoris CAD (coronary artery disease) Cardiomyopathy Cardiomyopathy in disease classified elsewhere Chronic systolic (congestive) heart failure Concussion COPD (chronic obstructive pulmonary disease) CVA (cerebral vascular accident) Debility Essential hypertension Fall HLD (hyperlipidemia) HTN (hypertension) Right arm pain SDH (subdural hematoma) Seizure Stroke Home Medications clopidogrel 75 mg PO DAILY 11/24/17 [History Last Taken 11/24/17] donepezil 5 mg PO QHS tab 12/02/17 [Rx Last Taken Unknown] hydralazine 10 mg tablet 10 mg PO 4X/DAY PRN tab 06/26/18 [History Last Taken Unknown] amitriptyline 100 mg tablet 50 mg PO DAILY tab 12/28/18 [History Last Taken Unknown] carvedilol 3.125 mg tablet 3.125 mg PO BID 12/28/18 [History Last Taken Unknown] albuterol sulfate 2.5 mg INHALATION Q6H PRN PRN 08/17/21 [History Last Taken Unknown] atorvastatin 10 mg PO DAILY 08/17/21 [History Last Taken Unknown] bisacodyl 10 mg PO QHS 08/17/21 [History Last Taken Unknown] diclofenac sodium [Voltaren Arthritis Pain] 1 ea TOPICAL 4X/DAY 08/17/21 [History Last Taken Unknown] diphenhydramine HCl [Diphen-Allergy] 25 mg PO BID 08/17/21 [History Last Taken Unknown] [id number] glycn-C [Cosamin DS] 1 cap PO DAILY 08/17/21 [History Last Taken Unknown] hydrocortisone [Anusol-HC] 1 ea [place] BID PRN PRN 08/17/21 [History Last Taken Unknown] oxycodone-acetaminophen 1 tab PO BID 08/17/21 [History Last Taken Unknown] oxycodone-acetaminophen 1 tab PO PRN PRN 08/17/21 [History Last Taken Unknown] Allergy/AdvReac Type Severity Reaction Status Date / Time Sulfa (Sulfonamide Allergy Severe Hives Verified 08/17/21 14:42 Antibiotics) gabapentin AdvReac Other Verified 08/17/21 14:42 zolpidem [From Ambien] AdvReac Unknown Verified 08/17/21 14:42 Family History Father Myocardial infarction, Onset Age: 75 Surgical History History of left heart catheterization (LHC) (~05/23/06) History of spinal fusion Social History Smoking Status: Former smoker alcohol intake: current details: occasional ROS ROS ED Constitutional Constitutional ED: Reports chills; Denies fever(s) or sweats Eyes Eyes: Denies blurry vision or diplopia ENT ENT ED: Denies rhinorrhea or sore throat Cardiovascular Cardiovascular: Denies chest pain or palpitations Respiratory/Chest Respiratory/Chest: Reports dyspnea; Denies cough Gastrointestinal Gastrointestinal: Denies abdominal pain, nausea or vomiting Genitourinary Genitourinary ED: Denies dysuria or hematuria Musculoskeletal Musculoskeletal: Denies arthralgias or myalgias Integumentary Denies rash Neurologic Neurologic: Denies headache(s) or weakness Psychiatric Psychiatric: Denies anxiety or depression EXAM Physical Exam Const Vital Signs: 08/17/21 14:37 08/17/21 14:40 08/17/21 15:16 Temperature 98.2 F 98.7 F Temperature Source Oral Oral Pulse Rate 98 97 105 H Respiratory Rate 28 H 33 H 23 H Respiratory Pattern Tachypnea Blood Pressure 118/102 H 118/102 H Blood Pressure Mean 107 107 Pulse Ox 96 95 Oxygen Delivery Method Room Air Room Air Positive well nourished General Appearance ED: NAD; Negative for pallor HEENT Reports moist mucous membranes Negative for trauma Eyes PERRL and EOMs intact bilaterally General Eye ED: Negative for pale conjunctiva or scleral icterus Resp normal respiratory effort and clear to auscultation bilaterally Cardio regular rate and regular rhythm Extremity normal to inspection General Extremety ED: Negative for edema or tenderness General Extremity: Negative for edema Neuro oriented x3, CN's II-XII intact bilaterally and no sensory deficits noted Sensorium / Orientation: alert Motor Exam: strength 5/5 throughout Psych mental status grossly normal Skin no rashes or lesions noted General Skin Exam: Negative for jaundice or pallor MDM MDM MDM Narrative Medical decision making narrative: Patient presenting with symptoms of shortness of breath. She states she feels like he is wheezing although on exam she does not have any wheezing. She slightly tachypneic. She complains of chills but no fever. COVID testing is negative. CBC shows a slight leukocytosis at 12.2. Hemoglobin hematocrit are stable. Renal function and electrolytes are normal. BNP is slightly elevated at 132. Chest x-ray on my interpretation does not appear to show any acute abnormalities. EKG on my interpretation shows a left bundle branch block. I have a call out for Dr. Spaulding for follow-up and to discuss the fact that the patient supposed to have Percocet 12/17/2024 and has a negative [facility] report. Chest x-ray is pending read by radiology. This will be followed up by incoming ED physician. Urinalysis is also pending. Impression: 1. Dyspnea 2. Chills 3. Leukocytosis Lab Data Attestation: I reviewed the patient's lab results. Labs: Laboratory Results - last 24 hr 08/17/21 08/17/21 08/17/21 15:00 15:00 15:00 WBC 12.2 H RBC 4.92 Hgb 13.2 Hct 43.3 MCV 88.0 MCH 26.8 L MCHC 30.5 L RDW Std Deviation 44.7 H RDW Coeff of Karine 13.7 Plt Count 274 MPV 10.1 Immature Gran % (Auto) 0.500 Neut % (Auto) 83.2 H Lymph % (Auto) 9.2 L Imperial % (Auto) 5.8 Eos % (Auto) 1.2 Baso % (Auto) 0.1 Absolute Neuts (auto) 10.1 H Absolute Lymphs (auto) 1.12 Nucleated RBC % 0 Sodium 139 Potassium 4.6 Chloride 106 Carbon Dioxide 29.0 Anion Gap 4 L BUN 17 Creatinine 0.89 Estim Creat Clear Calc 45.97 Est GFR (MDRD) Af Amer 78 Est GFR (MDRD) Non-Af 65 BUN/Creatinine Ratio 19.2 Glucose 113 H Calcium 9.2 Total Bilirubin 0.40 AST 15 ALT 16 Alkaline Phosphatase 86 Troponin I High Sens 6 B-Natriuretic Peptide 132.0 H Total Protein 7.5 Albumin 3.8 Globulin 3.7 Albumin/Globulin Ratio 1.0 Ur Drug Screen Comment 08/17/21 16:05 WBC RBC Hgb Hct MCV MCH MCHC RDW Std Deviation RDW Coeff of Karine Plt Count MPV Immature Gran % (Auto) Neut % (Auto) Lymph % (Auto) Imperial % (Auto) Eos % (Auto) Baso % (Auto) Absolute Neuts (auto) Absolute Lymphs (auto) Nucleated RBC % Sodium Potassium Chloride Carbon Dioxide Anion Gap BUN Creatinine Estim Creat Clear Calc Est GFR (MDRD) Af Amer Est GFR (MDRD) Non-Af BUN/Creatinine Ratio Glucose Calcium Total Bilirubin AST ALT Alkaline Phosphatase Troponin I High Sens B-Natriuretic Peptide Total Protein Albumin Globulin Albumin/Globulin Ratio Ur Drug Screen Comment Discharge Plan Triage Chief Complaint: Shortness of Breath ED Provider: Jose De Dios Dx/Rx/DC Orders Prescriptions: No Action hydralazine 10 mg tablet 10 mg PO 4X/DAY PRN (Reason: SBP >160) RF: 0 amitriptyline 100 mg tablet 50 mg PO DAILY RF: 0 carvedilol 3.125 mg tablet 3.125 mg PO BID RF: 0 clopidogrel 75 MG tablet 75 mg PO DAILY RF: 0 donepezil 5 MG tablet 5 mg PO QHS RF: 0 atorvastatin 10 mg Tablet 10 mg PO DAILY RF: 0 oxycodone-acetaminophen 10-325 mg Tablet 1 tab PO BID RF: 0 oxycodone-acetaminophen 10-325 mg Tablet 1 tab PO PRN PRN (Reason: Pain) RF: 0 diphenhydramine HCl [Diphen-Allergy] 25 mg Capsule 25 mg PO BID RF: 0 bisacodyl 5 mg Tablet 10 mg PO QHS RF: 0 Cosamin DS 500-400 mg Capsule 1 cap PO DAILY RF: 0 diclofenac sodium [Voltaren Arthritis Pain] 1 % Gel 1 ea TOPICAL 4X/DAY RF: 0 Anusol-HC 2.5 % Cream With Applicator 1 ea [place] BID PRN PRN (Reason: Pain) RF: 0 albuterol sulfate 2.5 MG/3 ML solution for nebulization 2.5 mg INHALATION Q6H PRN PRN (Reason: dyspnea, wheezing) RF: 0 Primary Care Provider: Natalee Spaulding
[2021-08-17 16:18] LABS: Bacteria 0 SEEN /hpf (None Seen); Mucous, Urine 0 SEEN /hpf (<or=2+); White Blood Cells 0 SEEN /hpf (0-5)
[2021-08-17 16:29] LABS: Color, Urine Yellow (Yellow); Glucose, Dipstick Normal (Normal); Ketone-Dipstick 15 mg/dl (Negative); Leukocyte Esterase-Dipstick Negative /ul (Negative); Nitrite-Dipstick Negative (Negative); Occult Blood-Urine 25 /ul (Negative); Protein-Dipstick Negative (Negative); Urine Bilirubin Dipstick Negative (Negative); Urine Clarity Clear (Clear); Urine Urobilinogen 1 mg/dl (Normal)
[2021-08-17 16:35] LABS: Red Blood Cells-Urine 0-5 SEEN /hpf (0-5); Squamous Epithelial Cells - UA 0-5 SEEN /hpf (5-10)
[2021-08-17 16:42] LABS: Amphetamine Urine VISTA NEGATIVE (<1000 ng/mL); Barbiturate Urine VISTA NEGATIVE (< 200 ng/mL); Benzodiazepine Urine VISTA NEGATIVE (< 200 ng/mL); Cocaine Urine VISTA NEGATIVE (< 300 ng/mL); Ecstacy Urine VISTA NEGATIVE (< 500 ng/mL); Methadone Urine VISTA NEGATIVE (< 300 ng/mL); PCP Urine VISTA NEGATIVE (< 25 ng/mL); THC Urine VISTA NEGATIVE (< 50 ng/mL); Vista UDS pH Range 6
--- NOTE | 2021-08-17 17:49 | ED.RN ---
Patients friend Prnaay is coming to pick patient up.
--- NOTE | 2021-08-17 17:51 | ED.RN ---
Patients daughter Radha called this RN back. She lives in [place]. Daughter notified Jaylan will be picking her up
== END 2021-08-17 18:42 | disposition home or self-care (01) ==
PROVIDERS: Emergency Provider Student in an Organized Health Care Education/Training Program; PCP Internal Medicine; Visit Provider Student in an Organized Health Care Education/Training Program
DX: R06.00 Dyspnea, unspecified (principal); J44.9 Chronic obstructive pulmonary disease, unspecified; I50.22 Chronic systolic (congestive) heart failure; I11.0 Hypertensive heart disease with heart failure; I43 Cardiomyopathy in diseases classified elsewhere; G40.909 Epilepsy, unspecified, not intractable, without status epilepticus; R68.83 Chills (without fever); D72.829 Elevated white blood cell count, unspecified; I25.10 Atherosclerotic heart disease of native coronary artery without angina pectoris; Z86.73 Personal history of transient ischemic attack (TIA), and cerebral infarction without residual deficits; E78.5 Hyperlipidemia, unspecified; Z79.899 Other long term (current) drug therapy; Z87.891 Personal history of nicotine dependence; I44.7 Left bundle-branch block, unspecified
CPT/HCPCS: 70450; 71045; 80053; 80307; 81001; 83880; 84484; 85025; 87428; 93005; 94640; 99285; P9612; A4216

== ENCOUNTER 2021-12-05 09:00 | Outpatient (RCR) | payer MEDICARE, SELFPAY ==
[2021-11-28 09:17] VITALS: BP 135/85; PULSE 84; RESP 18; TEMP 36.4; BMI 18.9
--- NOTE | 2021-11-28 12:22 | PCM.WC.HP ---
History of Present Illness Date of Service: 11/28/21 Chief Complaint: Right lower leg avulsion laceration from Linen door. History of Wound: 86-year-old white female approximately 1 month ago caught the linen door on her leg and developed a partial avulsion laceration was seen by her family doctor has had 2 rounds of antibiotics and is currently using saline and dressing some days leaving it open to air. FOR[facility]LY [facility], LATER [facility] Medical History Abnormal ECG Atherosclerotic heart disease of [place] coronary artery without angina pectoris CAD (coronary artery disease) Cardiomyopathy Cardiomyopathy in disease classified elsewhere Chronic systolic (congestive) heart failure Concussion COPD (chronic obstructive pulmonary disease) CVA (cerebral vascular accident) Debility Essential hypertension Fall HLD (hyperlipidemia) HTN (hypertension) Right arm pain SDH (subdural hematoma) Seizure Stroke Home Medications clopidogrel 75 mg tablet 75 mg PO DAILY CLOTS 11/24/17 [History Last Taken 11/24/17] donepezil 5 mg tablet 5 mg PO QHS 12/02/17 [Rx Last Taken Unknown] hydralazine 10 mg tablet 10 mg PO 4X/DAY PRN SBP >160 06/26/18 [History Last Taken Unknown] amitriptyline 100 mg tablet 50 mg PO DAILY 12/28/18 [History Last Taken Unknown] carvedilol 3.125 mg tablet 3.125 mg PO BID 12/28/18 [History Last Taken Unknown] atorvastatin 10 mg tablet 10 mg PO DAILY 08/17/21 [History Last Taken Unknown] bisacodyl 5 mg tablet 10 mg PO QHS 08/17/21 [History Last Taken Unknown] diclofenac sodium 1 % topical gel (Voltaren Arthritis Pain) 1 ea topical 4X/DAY 08/17/21 [History Last Taken Unknown] bjcfjtcc-[id number]-fk glycn-C 500 mg-400 mg capsule 1 cap PO DAILY 08/17/21 [History Last Taken Unknown] hydrocortisone 2.5 % rectal cream with applicator 1 ea [place] BID PRN PRN Pain 08/17/21 [History Last Taken Unknown] clopidogrel 75 mg tablet (Plavix) 75 mg PO DAILY 11/28/21 [History Last Taken Unknown] Allergy/AdvReac Type Severity Reaction Status Date / Time Sulfa (Sulfonamide Allergy Severe Hives Verified 11/28/21 09:36 Antibiotics) gabapentin AdvReac Other Verified 11/28/21 09:36 zolpidem [From Ambien] AdvReac Unknown Verified 11/28/21 09:36 Family History Father Myocardial infarction, Onset Age: 75 Surgical History History of left heart catheterization (LHC) (~05/23/06) History of spinal fusion Social History Smoking Status: Former smoker alcohol intake: current details: occasional ROS Constitutional Constitutional: Reports systems reviewed and no addt'l complaints, except as documented Cardiovascular Cardiovascular: Reports systems reviewed and no addt'l complaints, except as documented Respiratory/Chest Respiratory/Chest: Reports systems reviewed and no addt'l complaints, except as documented Gastrointestinal Gastrointestinal: Reports systems reviewed and no addt'l complaints, except as documented Genitourinary Genitourinary: Reports systems reviewed and no addt'l complaints, except as documented Integumentary Integumentary: Reports systems reviewed and no addt'l complaints, except as documented and wounds Neurologic Neurologic: Reports systems reviewed and no addt'l complaints, except as documented Psychiatric Psychiatric: Reports systems reviewed and no addt'l complaints, except as documented Endocrine Endocrinology: Reports systems reviewed and no addt'l complaints, except as documented Hematologic/Lymphatic Hematologic/Lymphatic: Reports systems reviewed and no addt'l complaints, except as documented Allergic/Immunologic Allergic/Immunologic: Reports systems reviewed and no addt'l complaints, except as documented Vital Signs Vital Signs Vital Signs: 11/28/21 09:17 Temperature 97.5 F L Temperature Source Temporal Pulse Rate 84 Respiratory Rate 18 Blood Pressure 135/85 H Blood Pressure Mean 101 Blood Pressure Source Monitor Weight Weight: 128 lb 3.067 oz Body Mass Index (BMI) 18.9 Physical Exam Const oriented x3 General Appearance: cooperative Exam Limitations: no limitations HEENT normocephalic Head and Scalp: normal to inspection Eyes PERRL Neck full ROM Resp normal respiratory effort Effort and Inspection: able to speak in complete sentences Auscultation: clear to auscultation bilaterally Cardio regular rate and regular rhythm Palpation: normal PMI Rate: regular rate Rhythm: regular rhythm GI Palpation: soft and no hepatosplenomegaly external exam normal Extremity normal to inspection Skin no rashes or lesions noted Skin Narrative: Open wound right lower leg appears to be an avulsion laceration. Bleeding under control already has new cells growing in base some erythema around the edge of wound and edema of the right lower leg noticeable. Neuro oriented x3 Psych Appearance: grossly normal Speech: normal speech Thought Content: normal thought content Judgement: judgement good Debridement Note Debridement Note Wound debrided: Right lower leg traumatic wound Laterality: Right Type of Debridement: Excisional debridement Anesthesia Used: 5% Lidocaine Gel Depth: Down to and including healthy tissue and in the subcutaneous layer Percentage of wound debrided: 100 Instrument Used: 7mm curette Tissue Removed: Fibrin and devitalized tissue Severity: Fat Layer Exposed Amount of bleeding with debridement: Mild Bleeding Controlled with: Compression and gauze Patient tolerated procedure: Patient tolerated procedure well Post-Debridement Measurements and Additional Note: Post-Debridement Measurements/Treatment - Nurse 1 - General Ulcer Assessment Start: 11/28/21 09:03 Freq: Status: Active Protocol: TAMMIE Activity Type Activity Date Activity User E-sign Co-sign Detail Recorded Client Recorded Date Recorded By Document 11/28/21 09:17 DL [id number] 11/28/21 09:33 DL 11/28/21 09:17 - Today's Visit Information Type of service Initial Visit Arrival Mode Ambulatory Transfer Assistance None Patient Identification Verified (Name & Yes ) Patient Requires Transmission-Based No Precautions Safety Precautions Fall Prevention Height and Weight Height 5 ft 9 in Weight 128 lb 3.067 oz Weight in Pounds 128.2 lbs Body Mass Index (BMI) 18.9 BMI Classification Normal BSA - [place] 1.71 Vital Signs Temperature (97.8 F-99.1 F) 97.5 F L Temperature Source Temporal Pulse Rate (60-100) 84 Pulse Location Monitor Respiratory Rate (12-18) 18 Respiratory rate source Observation Blood Pressure (90/60-120/80) 135/85 H Blood Pressure Mean (mm Hg) 101 Source Monitor Pain Scale: 0-10 Numeric Is Patient Pain Free? Yes Lower Extremity Assessment/ Foot Assessment/ Toe Nail Assessment Left -Posterior Tibial Palpable No -Posterior Tibial Doppler Monophasic -Dorsalis Pedis Palpable No -Dorsalis Pedis Doppler Monophasic -Extremity Color Hemosiderin -Hair Growth on Legs No -Hair Growth on Toes No -Temperature of Extremity Cold -Capillary Refill Greater than 3 Seconds -Dependent Rubor No -Blanched when Elevated No -Lipodermatosclerosis No -Other Deformity No -Prior Foot Ulcer No -Charcot Joint No -Prior Amputation No -Thick No -Discolored Yes -Deformed No -Improper Length & Hygeine No Right -Posterior Tibial Palpable No -Posterior Tibial Doppler Monophasic -Dorsalis Pedis Palpable No -Dorsalis Pedis Doppler Monophasic -Extremity Color Hemosiderin -Hair Growth on Legs No -Hair Growth on Toes No -Temperature of Extremity Cold -Capillary Refill Greater than 3 Seconds -Dependent Rubor No -Blanched when Elevated No -Lipodermatosclerosis No -Other Deformity No -Prior Foot Ulcer No -Charcot Joint No -Prior Amputation No -Thick Yes -Discolored No -Deformed No -Improper Length & Hygeine Yes Neuropathy Assessment Feet - Top Side and Bottom <Entered> (a) Communication Assessment Preferred language Khmer Able to Read Yes Able to Write Yes Right Hearing Abillity Hard of Hearing ,Use of Hearing Aid Left Hearing Abillity Hard of Hearing ,Use of Hearing Aid Visual Assistive Devices Glasses Teaching Assessment Preferences Verbal,Written, Demonstration Readiness To Learn Fair Willingness to Engage in Self Management Med Activies Readiness to Engage in Self Management Med Activities Anxiety Level Calm Cooperation Cooperative Perception Coherent Interest in Health Problem Asks Questions Education Importance Acknowledges Need Does Patient Smoke tobacco or other No substances Smoking Status Former smoker Is Patient Diabetic No Functional Assessment Recent Decline in Ability to Perform Denies Any Declines Assistive Device With Patient N/A Culture/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 to contact place of mandaeism No Teaching: Wound Center Dressing Your Wound -Person Taught Patient Diagnostic Tests Ordered -Person Taught Patient *Welcome to the Wound Center -Person Taught Patient (a) 1 - + WC - Nurse 1 - General Ulcer Measurement Start: 11/28/21 09:03 Freq: Status: Active Protocol: Activity Type Activity Date Activity User E-sign Co-sign Detail Recorded Client Recorded Date Recorded By Document 11/28/21 09:17 DL [id number] 11/28/21 09:33 DL 11/28/21 09:17 Wound Center Nurse 1 31 R Med LE -Current Size (cm) - Length 4.6 -Current Size (cm) - Width 2.9 -Current Size (cm) - Depth 0.1 -Total Square Cm 13.34 -Photo Taken Yes -Exudate Amt Large -Exudate Type Serosanguineous -Wound Margin Distinct, Outline Attached -Granulation Amt Large (67-100%) -Granulation Quality Red -Necrosis Amt Small (1-33%) -Necrotic Tissue Type Adherent Slough -Structure Exposed N/A -Texture (Mariella-wound Skin Appearance) Scarring -Moisture (Mariella-wound Skin Appearance) No Abnormality -Color (Mariella-wound Skin Appearance) Hemosiderin Staining -Temperature (Mariella-wound Skin No Abnormality Appearance) (Pt Warm) -Tenderness on Palpation (Mariella-wound No Skin Appearance) -Ulcer Cleansing Soap and Water -Foul Odor after Cleansing No -Anesthetic Used 5% Lidocaine Gel Right Calf (cm) 28.5 Right Ankle (cm) 20.5 Left Calf (cm) 31 Left Ankle (cm) 20.6 WC - Nurse 2 - General Ulcer CM Notes Start: 11/28/21 09:03 Freq: Status: Active Protocol: Activity Type Activity Date Activity User E-sign Co-sign Detail Recorded Client Recorded Date Recorded By Document 11/28/21 10:04 MW [id number] 11/28/21 10:07 MW 11/28/21 10:04 Wound Center Nurse 2 31 R Med LE -Time 10:05 -Correct Patient Yes -Correct Side, Site, Position Yes -Correct Procedure Yes -Procedure Performed Yes -Type of Procedure Debridement -Clinical Debridement Subcutaneous -Tissue Removed Subcutaneous -Post Debridement (cm) - Length 4.5 -Post Debridement (cm) - Width 3.0 -Post Debridement (cm) - Depth 0.1 -Total Square (Post) (cm) 13.50 -Area of Debridement (cm) - Length 4.5 -Area of Debridement (cm) - Width 3.0 -Total Square (Area) (cm) 13.50 -Tunneling No -Undermining/Tunneling No -Circular Undermining No -Wound/Ulcer Outcome Not Healed -Ulcer Cleansing Rinsed/ Irrigated with Saline -Foul Odor after Cleansing No -Bioengineered Tissue No -Bleeding Controlled with Pressure -Treatment Response Procedure Tolerated Well -Offloading No -Debridement - Subq, 1st 20sq cm Yes Pain Scale: 0-10 Numeric Is Patient Pain Free? Yes - Nurse 3 - General Ulcer D/C NN Start: 11/28/21 09:03 Freq: Status: Active Protocol: Activity Type Activity Date Activity User E-sign Co-sign Detail Recorded Client Recorded Date Recorded By Document 11/28/21 10:24 DL [id number] 11/28/21 10:28 DL 11/28/21 10:24 Wound Care Nurse 3 31 R Med LE -Ulcer Cleansing Rinsed/ Irrigated with Saline -Foul Odor after Cleansing No -Primary Dressing Applied Aquacel Extra, NonAdherent Contact Layer -Primary Dressing Covered/Secured with Dry Gauze & Roll Gauze, Secured with Tape -Aquacel Extra 1 Right -Tubular Bandage Double Layer -Size of Tubigrip Used Size E -Size E ($) 2 Treatment Response Procedure Tolerated Well Pain Scale: 0-10 Numeric Is Patient Pain Free? Yes - Visit Discharge Discharge Condition Stable Ambulatory Status Ambulatory Transportation Private Auto Assessment/Plan Assessment/Plan (1) Essential hypertension: CODE(S): I10 - Essential (primary) hypertension (2) Nonhealing nonsurgical wound: CODE(S): T14.8XXA - Other injury of unspecified body region, initial encounter PLAN: Wash right lower leg with antibacterial soap pat dry apply Aquacel extra and Adaptic to wound base moistened cover with gauze and Amairani and a double layer Tubigrip to the right leg We will call with cultures results Follow-up in 1 week
[2021-12-05 09:07] VITALS: TEMP 35.7; BMI 18.9
--- NOTE | 2021-12-05 10:33 | PN.PCM_ITS ---
History of Present Illness Date of Service: 12/05/21 Chief Complaint: Right lower leg avulsion laceration from Linen door. History of Wound: 86-year-old white female approximately 1 month ago caught the linen door on her leg and developed a partial avulsion laceration was seen by her family doctor has had 2 rounds of antibiotics and is currently using saline and dressing some days leaving it open to air. Progress of Wound: The wound is measuring smaller and doing very well islands of new cells growth and indentation into the open wound is apparent. No sign of infection. We are going to switch her over to Xeroform and Aquacel over top. Subjective Subjective Patient is very pleased with outcomes Objective Data Objective Data No sign of infection measuring smaller doing very well Vital Signs: Vital Signs Temp Pulse Resp BP 96.2 F L 84 18 135/85 H 12/05/21 09:07 11/28/21 09:17 11/28/21 09:17 11/28/21 09:17 Weight: 128 lb 3.067 oz Body Mass Index (BMI) 18.9 Lab / Micro Data Attestation: I reviewed the patient's lab results. Lab results narrative: Cultures were positive and patient was started on doxycycline Micro: Microbiology 11/28/21 10:00 Wound Abcess - Other Gram Stain - Final 11/28/21 10:00 Wound Abcess - Other Wound Culture - Final Staphylococcus epidermidis 11/28/21 10:00 Wound Abcess - Other Anaerobic Culture - Final No anaerobic bacteria isolated. Physical Exam Const oriented x3 General Appearance: cooperative Exam Limitations: no limitations HEENT normocephalic Head and Scalp: normal to inspection Eyes PERRL Neck full ROM Resp normal respiratory effort Effort and Inspection: able to speak in complete sentences Auscultation: clear to auscultation bilaterally Cardio regular rate and regular rhythm Palpation: normal PMI Rate: regular rate Rhythm: regular rhythm GI Palpation: soft and no hepatosplenomegaly external exam normal Extremity normal to inspection Skin no rashes or lesions noted Skin Narrative: Open wound right lower leg appears to be an avulsion laceration. Bleeding under control already has new cells growing in base some erythema around the edge of wound and edema of the right lower leg noticeable. Neuro oriented x3 Psych Appearance: grossly normal Speech: normal speech Thought Content: normal thought content Judgement: judgement good Debridement Note Debridement Note Wound debrided: Right medial lower leg trauma Laterality: Right Type of Debridement: Excisional debridement Anesthesia Used: 5% Lidocaine Gel Depth: in the subcutaneous layer Percentage of wound debrided: 100 Instrument Used: 7mm curette Tissue Removed: Fibrin and some devitalized tissue Severity: Limited To Skin Breakdown Amount of bleeding with debridement: Mild Bleeding Controlled with: Compression and gauze Patient tolerated procedure: Patient tolerated procedure well Post-Debridement Measurements and Additional Note: Post-Debridement Measurements/Treatment WC - Nurse 1 - General Ulcer Assessment Start: 11/28/21 09:03 Freq: Status: Active Protocol: TAMMIE Activity Type Activity Date Activity User E-sign Co-sign Detail Recorded Client Recorded Date Recorded By Document 11/28/21 09:17 DL [id number] 11/28/21 09:33 DL Document 12/05/21 09:07 AK [id number] 12/05/21 09:15 AK 11/28/21 12/05/21 09:17 09:07 - Today's Visit Information Type of service Initial Visit Follow-up Visit (Physician/BUSINESS BANKING REPRESENTATIVE ) Arrival Mode Ambulatory Ambulatory Transfer Assistance None Patient Identification Verified (Name & Yes Yes ) Patient Requires Transmission-Based No No Precautions Safety Precautions Fall Prevention Height and Weight Height 5 ft 9 in Weight 128 lb 3.067 oz Weight in Pounds 128.2 lbs Body Mass Index (BMI) 18.9 18.9 BMI Classification Normal Normal BSA - [place] 1.71 Vital Signs Temperature (97.8 F-99.1 F) 97.5 F L 96.2 F L Temperature Source Temporal Temporal Pulse Rate (60-100) 84 Pulse Location Monitor Respiratory Rate (12-18) 18 Respiratory rate source Observation Blood Pressure (90/60-120/80) 135/85 H Blood Pressure Mean (mm Hg) 101 Source Monitor History Since Last Visit- (Skip if this is Patient's initial visit) Have you changed medications since your No last visit? Any new allergies or adverse reactions No Had a fall/change in ADL's that may No increase risk of falls Signs or symptoms of abuse and/or No neglect since last visit Have you been in the hospital since your No last visit? Has dressing in place as prescribed Yes Has compression in place as prescribed N/A Has offloadiing in place as prescribed N/A Experienced any changes in pain level or No management Left Footwear Regular Shoe Right Footwear Regular Shoe Pain Scale: 0-10 Numeric Is Patient Pain Free? Yes Yes Lower Extremity Assessment/ Foot Assessment/ Toe Nail Assessment Left -Posterior Tibial Palpable No -Posterior Tibial Doppler Monophasic -Dorsalis Pedis Palpable No -Dorsalis Pedis Doppler Monophasic -Extremity Color Hemosiderin -Hair Growth on Legs No -Hair Growth on Toes No -Temperature of Extremity Cold -Capillary Refill Greater than 3 Seconds -Dependent Rubor No -Blanched when Elevated No -Lipodermatosclerosis No -Other Deformity No -Prior Foot Ulcer No -Charcot Joint No -Prior Amputation No -Thick No -Discolored Yes -Deformed No -Improper Length & Hygeine No Right -Posterior Tibial Palpable No -Posterior Tibial Doppler Monophasic -Dorsalis Pedis Palpable No -Dorsalis Pedis Doppler Monophasic -Extremity Color Hemosiderin -Hair Growth on Legs No -Hair Growth on Toes No -Temperature of Extremity Cold -Capillary Refill Greater than 3 Seconds -Dependent Rubor No -Blanched when Elevated No -Lipodermatosclerosis No -Other Deformity No -Prior Foot Ulcer No -Charcot Joint No -Prior Amputation No -Thick Yes -Discolored No -Deformed No -Improper Length & Hygeine Yes Neuropathy Assessment Feet - Top Side and Bottom <Entered> (a) Communication Assessment Preferred language Guatemalan Able to Read Yes Able to Write Yes Right Hearing Abillity Hard of Hearing ,Use of Hearing Aid Left Hearing Abillity Hard of Hearing ,Use of Hearing Aid Visual Assistive Devices Glasses Teaching Assessment Preferences Verbal,Written, Demonstration Readiness To Learn Fair Willingness to Engage in Self Management Med Activies Readiness to Engage in Self Management Med Activities Anxiety Level Calm Cooperation Cooperative Perception Coherent Interest in Health Problem Asks Questions Education Importance Acknowledges Need Does Patient Smoke tobacco or other No substances Smoking Status Former smoker Is Patient Diabetic No Functional Assessment Recent Decline in Ability to Perform Denies Any Declines Assistive Device With Patient N/A Culture/Oriental Orthodox/Load Planner Cultural/Oriental Orthodox Needs that may affect No Treatment Plan Would you allow our hospital barrel inspector to No meet you for the purpose of spiritual/ emotional support? Load Planner to contact place of christian No Teaching: Wound Center Dressing Your Wound -Person Taught Patient Diagnostic Tests Ordered -Person Taught Patient *Welcome to the Wound Center -Person Taught Patient (a) 1 - + WC - Nurse 1 - General Ulcer Measurement Start: 11/28/21 09:03 Freq: Status: Active Protocol: Activity Type Activity Date Activity User E-sign Co-sign Detail Recorded Client Recorded Date Recorded By Document 11/28/21 09:17 DL [id number] 11/28/21 09:33 DL Document 12/05/21 09:07 AK [id number] 12/05/21 09:15 AK 11/28/21 12/05/21 09:17 09:07 Wound Center Nurse 1 31 R Med LE -Combined with other wound No -Current Size (cm) - Length 4.6 4.5 -Current Size (cm) - Width 2.9 2.4 -Current Size (cm) - Depth 0.1 0.1 -Total Square Cm 13.34 10.80 -Date of Last Picture (Recall this 12/05/21 field) -Photo Taken Yes Yes -Epithelialization Large 67-100% -Tunneling No -Undermining/Tunneling No -Circular Undermining No -Change in Wound Grade/Stage No -Exudate Amt Large Large -Exudate Type Serosanguineous Serosanguineous -Wound Margin Distinct, Distinct, Outline Outline Attached Attached -Granulation Amt Large (67-100%) Large (67-100%) -Granulation Quality Red Red -Slough/Fibrin No -Necrosis Amt Small (1-33%) None Present (0 %) -Necrotic Tissue Type Adherent Slough -Structure Exposed N/A N/A -Texture (Mariella-wound Skin Appearance) Scarring No Abnormality, Assessed -Moisture (Mariella-wound Skin Appearance) No Abnormality No Abnormality, Assessed -Color (Mariella-wound Skin Appearance) Hemosiderin No Abnormality, Staining Assessed -Temperature (Mariella-wound Skin No Abnormality No Abnormality Appearance) (Pt Warm) (Pt Warm) -Tenderness on Palpation (Mariella-wound No No Skin Appearance) -Ulcer Cleansing Soap and Water Rinsed/ Irrigated with Saline -Foul Odor after Cleansing No No -Anesthetic Used 5% Lidocaine 5% Lidocaine Gel Gel Lower Limb Edema Present No Right Calf (cm) 28.5 29 Right Ankle (cm) 20.5 21.2 Left Calf (cm) 31 Left Ankle (cm) 20.6 WC - Nurse 2 - General Ulcer CM Notes Start: 11/28/21 09:03 Freq: Status: Active Protocol: Activity Type Activity Date Activity User E-sign Co-sign Detail Recorded Client Recorded Date Recorded By Document 11/28/21 10:04 MW [id number] 11/28/21 10:07 MW Document 12/05/21 09:23 MW Desktop 12/05/21 09:25 MW 11/28/21 12/05/21 10:04 09:23 Wound Center Nurse 2 31 R Med LE -Time 10:05 09:24 -Correct Patient Yes Yes -Correct Side, Site, Position Yes Yes -Correct Procedure Yes Yes -Procedure Performed Yes Yes -Type of Procedure Debridement Debridement -Clinical Debridement Subcutaneous Subcutaneous -Tissue Removed Subcutaneous Subcutaneous -Post Debridement (cm) - Length 4.5 4.2 -Post Debridement (cm) - Width 3.0 2.0 -Post Debridement (cm) - Depth 0.1 0.1 -Total Square (Post) (cm) 13.50 8.40 -Area of Debridement (cm) - Length 4.5 4.2 -Area of Debridement (cm) - Width 3.0 2.0 -Total Square (Area) (cm) 13.50 8.40 -Tunneling No No -Undermining/Tunneling No No -Circular Undermining No No -Wound/Ulcer Outcome Not Healed Not Healed -Ulcer Cleansing Rinsed/ Rinsed/ Irrigated with Irrigated with Saline Saline -Foul Odor after Cleansing No No -Bioengineered Tissue No No -Bleeding Controlled with Pressure Pressure -Treatment Response Procedure Procedure Tolerated Well Tolerated Well -Offloading No No -Debridement - Subq, 1st 20sq cm Yes Yes Pain Scale: 0-10 Numeric Is Patient Pain Free? Yes Yes WC - Nurse 3 - General Ulcer D/C NN Start: 11/28/21 09:03 Freq: Status: Active Protocol: Activity Type Activity Date Activity User E-sign Co-sign Detail Recorded Client Recorded Date Recorded By Document 11/28/21 10:24 DL [id number] 11/28/21 10:28 DL Document 12/05/21 09:32 MW Desktop 12/05/21 09:33 MW 11/28/21 12/05/21 10:24 09:32 Wound Care Nurse 3 31 R Med LE -Ulcer Cleansing Rinsed/ Rinsed/ Irrigated with Irrigated with Saline Saline -Foul Odor after Cleansing No No -Primary Dressing Applied Aquacel Extra, NonAdherent Contact Layer -Other Dressing xeroform, aquacel extra -Primary Dressing Covered/Secured with Dry Gauze & Dry Gauze & Roll Gauze, Roll Gauze, Secured with Secured with Tape Tape -Aquacel Extra 1 Right -Lotion applied to leg before No compression wrap -Tubular Bandage Double Layer Single Layer -Size of Tubigrip Used Size E Size D -Size D ($) 2 -Size E ($) 2 Treatment Response Procedure Procedure Tolerated Well Tolerated Well Pain Scale: 0-10 Numeric Is Patient Pain Free? Yes Yes Teaching: Wound Center Compression Wraps & Stockings -Person Taught Patient -Teaching Method Discussion -Response to teaching Verbalize understanding Dressing Your Wound -Person Taught Patient -Teaching Method Discussion -Response to teaching Verbalize understanding WC - Visit Discharge Discharge Condition Stable Stable Ambulatory Status Ambulatory Ambulatory Transportation Private Auto Private Auto Accompanied by self Medication Reconcilliation completed & No provided to patient/care provider Clinical Summary of Care Provided Yes Notes: Dressing applied per Krys Martinez RNsupervisor histology/Plan Assessment/Plan (1) Essential hypertension: CODE(S): I10 - Essential (primary) hypertension (2) Nonhealing nonsurgical wound: CODE(S): T14.8XXA - Other injury of unspecified body region, initial encounter PLAN: Wash right lower leg with antibacterial soap pat dry apply Xeroform then Aquacel extra to wound base moistened cover with gauze and Amairani and a double layer Tubigrip to the right leg Continue doxycycline 100 mg twice daily Follow-up in 1 week
== END 2021-12-14 23:59 | disposition home or self-care (01) ==
LOC: WC 09:00
PROVIDERS: PCP Nurse Practitioner; Visit Provider Nurse Practitioner
DX: S81.811D Laceration without foreign body, right lower leg, subsequent encounter (principal); J44.9 Chronic obstructive pulmonary disease, unspecified; I11.0 Hypertensive heart disease with heart failure; I50.22 Chronic systolic (congestive) heart failure; I42.9 Cardiomyopathy, unspecified; W22.09XD Striking against other stationary object, subsequent encounter; I25.10 Atherosclerotic heart disease of native coronary artery without angina pectoris; E78.5 Hyperlipidemia, unspecified; Z79.02 Long term (current) use of antithrombotics/antiplatelets; Z79.899 Other long term (current) drug therapy; Z87.891 Personal history of nicotine dependence; Z86.73 Personal history of transient ischemic attack (TIA), and cerebral infarction without residual deficits
CPT/HCPCS: 11042; 87070; 87075; 87186; 87205; 99203; G0463

== ENCOUNTER → 2021-12-10 | Outpatient (CLI) | payer MEDICARE, SELFPAY ==
[2021-12-10 12:59] LABS: AST(SGOT) 13 U/L (15-37); Alanine Aminotransfer ALT/SGPT 15 U/L (13-56); Albumin, Serum 3.4 g/dL (3.2-5.0); Alkaline Phosphatase 83 U/L (45-117); Bilirubin, Direct 0.12 mg/dL (0.00-0.30); Cholesterol 155 mg/dL (200); Globulin 2.8 g/dL (2.2-4.2); High Density Lipoprotein 75 mg/dL; Protein, Total 6.2 g/dL (6.4-8.2); Triglycerides 104 mg/dL; Very Low Density Lipoprotein 21 mg/dL (5-40)
== END | disposition home or self-care (01) ==
LOC: LAB 12:04
PROVIDERS: PCP Nurse Practitioner; Visit Provider Internal Medicine Cardiovascular Disease
DX: E78.00 Pure hypercholesterolemia, unspecified (principal)
CPT/HCPCS: 36415; 80061; 80076

== ENCOUNTER 2022-01-09 09:45 | Outpatient (RCR) | payer MEDICARE, SELFPAY ==
[2021-12-15 01:44] VITALS: BP 135/85; PULSE 84; RESP 18; TEMP 35.7; BMI 18.9
[2021-12-19 09:24] VITALS: BP 140/69; PULSE 103; TEMP 36.2; BMI 18.9
[2021-12-19 09:28] VITALS: BP 111/68; PULSE 73; TEMP 36.1; BMI 18.9
--- NOTE | 2021-12-19 12:49 | PN.PCM_ITS ---
History of Present Illness Date of Service: 12/19/21 Chief Complaint: Right lower leg avulsion laceration from Linen door. History of Wound: 86-year-old white female approximately 1 month ago caught the linen door on her leg and developed a partial avulsion laceration was seen by her family doctor has had 2 rounds of antibiotics and is currently using saline and dressing some days leaving it open to air. Progress of Wound: Right medial ankle improving smaller was using Xeroform we will finish her off with Promogran for healing. Subjective Subjective Patient is pleased with outcomes Objective Data Objective Data No sign of infection does measure smaller doing well no sign of infection Vital Signs: Vital Signs Temp Pulse Resp BP 96.9 F L 73 18 111/68 12/19/21 09:28 12/19/21 09:28 12/15/21 01:44 12/19/21 09:28 Weight: 128 lb 3.067 oz Body Mass Index (BMI) 18.9 Lab / Micro Data Attestation: I reviewed the patient's lab results. Physical Exam Const oriented x3 General Appearance: cooperative Exam Limitations: no limitations HEENT normocephalic Head and Scalp: normal to inspection Eyes PERRL Neck full ROM Resp normal respiratory effort Effort and Inspection: able to speak in complete sentences Auscultation: clear to auscultation bilaterally Cardio regular rate and regular rhythm Palpation: normal PMI Rate: regular rate Rhythm: regular rhythm GI Palpation: soft and no hepatosplenomegaly external exam normal Extremity normal to inspection Skin no rashes or lesions noted Skin Narrative: Open wound right lower leg appears to be an avulsion laceration. Bleeding under control already has new cells growing in base some erythema around the edge of wound and edema of the right lower leg noticeable. Neuro oriented x3 Psych Appearance: grossly normal Speech: normal speech Thought Content: normal thought content Judgement: judgement good Debridement Note Debridement Note Wound debrided: Right medial ankle traumatic wound Laterality: Right Type of Debridement: Excisional debridement Anesthesia Used: 5% Lidocaine Gel Depth: Down to and including healthy tissue Percentage of wound debrided: 100 Instrument Used: 7mm curette Tissue Removed: Fibrin Severity: Limited To Skin Breakdown Amount of bleeding with debridement: Mild Bleeding Controlled with: Compression and gauze Patient tolerated procedure: Patient tolerated procedure well Post-Debridement Measurements and Additional Note: Post-Debridement Measurements/Treatment WC - Nurse 1 - General Ulcer Assessment Start: 12/19/21 09:24 Freq: Status: Active Protocol: ILIANA.ALIRIO Activity Type Activity Date Activity User E-sign Co-sign Detail Recorded Client Recorded Date Recorded By Document 12/19/21 09:24 AK [id number] 12/19/21 09:27 AK Document 12/19/21 09:28 AK [id number] 12/19/21 09:30 AK 12/19/21 12/19/21 09:24 09:28 - Today's Visit Information Type of service Follow-up Visit Follow-up Visit (Physician/AUTOMATIC DOOR MECHANIC (Physician/AUTOMATIC DOOR MECHANIC ) ) Arrival Mode Ambulatory Ambulatory Patient Identification Verified (Name & Yes Yes ) Patient Requires Transmission-Based No No Precautions Safety Precautions NA NA Height and Weight Body Mass Index (BMI) 18.9 18.9 BMI Classification Normal Normal Vital Signs Temperature (97.8 F-99.1 F) 97.2 F L 96.9 F L Temperature Source Temporal Temporal Pulse Rate (60-100) 103 H 73 Pulse Location Monitor Monitor Blood Pressure (90/60-120/80) 140/69 H 111/68 Blood Pressure Mean (mm Hg) 92 82 Source Monitor Monitor Comment charted a few min ago on wrong pt. This is correct informaton History Since Last Visit- (Skip if this is Patient's initial visit) Have you changed medications since your No No last visit? Any new allergies or adverse reactions No No Had a fall/change in ADL's that may No No increase risk of falls Signs or symptoms of abuse and/or No No neglect since last visit Have you been in the hospital since your No No last visit? Has dressing in place as prescribed No No Has compression in place as prescribed N/A No Has offloadiing in place as prescribed N/A No Experienced any changes in pain level or No No management Left Footwear Regular Shoe Regular Shoe Right Footwear Regular Shoe Regular Shoe Pain Scale: 0-10 Numeric Is Patient Pain Free? Yes Yes - Nurse 1 - General Ulcer Measurement Start: 12/19/21 09:24 Freq: Status: Active Protocol: Activity Type Activity Date Activity User E-sign Co-sign Detail Recorded Client Recorded Date Recorded By Document 12/19/21 09:24 AK [id number] 12/19/21 09:27 AK Document 12/19/21 09:28 AK [id number] 12/19/21 09:30 AK 12/19/21 12/19/21 09:24 09:28 Wound Center Nurse 1 31 R Med LE -Combined with other wound No No -Current Size (cm) - Length 1 3 -Current Size (cm) - Width 0.5 1.6 -Current Size (cm) - Depth 0.1 0.1 -Total Square Cm 0.5 4.8 -Photo Taken No No -Tunneling No No -Undermining/Tunneling No No -Circular Undermining No No -Change in Wound Grade/Stage No No -Exudate Amt Medium Medium -Exudate Type Serosanguineous Serosanguineous -Wound Margin Distinct, Distinct, Outline Outline Attached Attached -Granulation Amt None Present (0 Medium (34-66%) %) -Granulation Quality Margaret -Slough/Fibrin Yes Yes -Necrosis Amt Medium (34-66%) Medium (34-66%) -Necrotic Tissue Type Adherent Slough Adherent Slough -Structure Exposed N/A N/A -Texture (Mariella-wound Skin Appearance) No Abnormality, No Abnormality, Assessed Assessed -Moisture (Mariella-wound Skin Appearance) No Abnormality, No Abnormality, Assessed Assessed -Color (Mariella-wound Skin Appearance) No Abnormality, No Abnormality, Assessed Assessed -Temperature (Mariella-wound Skin No Abnormality No Abnormality Appearance) (Pt Warm) (Pt Warm) -Tenderness on Palpation (Mariella-wound No No Skin Appearance) -Ulcer Cleansing Rinsed/ Rinsed/ Irrigated with Irrigated with Saline Saline -Foul Odor after Cleansing No No -Anesthetic Used 5% Lidocaine 5% Lidocaine Gel Gel -Wound Comment(s) gauze only. Will need to reinforce teaching Right Calf (cm) 42 29 Right Ankle (cm) 24 21 Left Calf (cm) 41 Left Ankle (cm) 23 WC - Nurse 2 - General Ulcer CM Notes Start: 12/19/21 09:24 Freq: Status: Active Protocol: Activity Type Activity Date Activity User E-sign Co-sign Detail Recorded Client Recorded Date Recorded By Document 12/19/21 09:37 MW [id number] 12/19/21 09:39 MW 12/19/21 09:37 Wound Center Nurse 2 31 R Med LE -Time 09:37 -Correct Patient Yes -Correct Side, Site, Position Yes -Correct Procedure Yes -Procedure Performed Yes -Type of Procedure Debridement -Clinical Debridement Subcutaneous -Tissue Removed Subcutaneous -Post Debridement (cm) - Length 2.5 -Post Debridement (cm) - Width 1.2 -Post Debridement (cm) - Depth 0.1 -Total Square (Post) (cm) 3.00 -Area of Debridement (cm) - Length 2.5 -Area of Debridement (cm) - Width 1.2 -Total Square (Area) (cm) 3.00 -Tunneling No -Undermining/Tunneling No -Circular Undermining No -Wound/Ulcer Outcome Not Healed -Ulcer Cleansing Rinsed/ Irrigated with Saline -Foul Odor after Cleansing No -Bioengineered Tissue No -Bleeding Controlled with Pressure -Treatment Response Procedure Tolerated Well -Offloading No -Debridement - Subq, 1st 20sq cm Yes Pain Scale: 0-10 Numeric Is Patient Pain Free? Yes - Nurse 3 - General Ulcer D/C NN Start: 12/19/21 09:24 Freq: Status: Active Protocol: Activity Type Activity Date Activity User E-sign Co-sign Detail Recorded Client Recorded Date Recorded By Document 12/19/21 12:12 [email or web address] [id number] 12/19/21 12:15 [email or web address] 12/19/21 12:12 Wound Care Nurse 3 31 R Med LE -Ulcer Cleansing Rinsed/ Irrigated with Saline -Foul Odor after Cleansing No -Negative Pressure Wound Therapy N/A -Primary Dressing Applied Aquacel Extra -Other Dressing xeroform -Primary Dressing Covered/Secured with Dry Gauze & Roll Gauze, Secured with Tape -Aquacel Extra 1 Pain Scale: 0-10 Numeric Is Patient Pain Free? Yes WC - Visit Discharge Discharge Condition Stable Transportation Private Auto Medication Reconcilliation completed & Yes provided to patient/care provider Clinical Summary of Care Provided Yes Assessment/Plan Assessment/Plan (1) Essential hypertension: CODE(S): I10 - Essential (primary) hypertension (2) Nonhealing nonsurgical wound: CODE(S): T14.8XXA - Other injury of unspecified body region, initial encounter PLAN: Wash right lower leg with antibacterial soap pat dry apply Promogran to wound base moistened cover with Adaptic then gauze and Amairani and a double layer Tubigrip to the right leg Follow-up in 1 week
--- NOTE | 2021-12-26 11:07 | PN.PCM_ITS ---
History of Present Illness Date of Service: 12/26/21 Chief Complaint: Right lower leg avulsion laceration from Linen door. History of Wound: 86-year-old white female approximately 1 month ago caught the linen door on her leg and developed a partial avulsion laceration was seen by her family doctor has had 2 rounds of antibiotics and is currently using saline and dressing some days leaving it open to air. Progress of Wound: Right medial ankle improving smaller was using Xeroform we will finish her off with Promogran and Adaptic for healing. Leg is improving and is smaller about half the size as it was last week we will continue with the same treatment Subjective Subjective Patient is happy that it is improving we will see her in 2 weeks Objective Data Objective Data No sign of infection healing well continue Promogran Vital Signs: Vital Signs Temp Pulse Resp BP 96.9 F L 73 18 111/68 12/19/21 09:28 12/19/21 09:28 12/15/21 01:44 12/19/21 09:28 Weight: 128 lb 3.067 oz Body Mass Index (BMI) 18.9 Debridement Note Debridement Note Wound debrided: Right medial morelos Laterality: Right Type of Debridement: Excisional debridement Anesthesia Used: 5% Lidocaine Gel Depth: in the subcutaneous layer Percentage of wound debrided: 100 Instrument Used: 7mm curette Tissue Removed: Devitalized tissue and fibrin Severity: Fat Layer Exposed Amount of bleeding with debridement: Mild Bleeding Controlled with: Compression and gauze Patient tolerated procedure: Patient tolerated procedure well Post-Debridement Measurements and Additional Note: Post-Debridement Measurements/Treatment - Nurse 1 - General Ulcer Assessment Start: 12/19/21 09:24 Freq: Status: Active Protocol: TAMMIE Activity Type Activity Date Activity User E-sign Co-sign Detail Recorded Client Recorded Date Recorded By Document 12/19/21 09:24 AK [id number] 12/19/21 09:27 AK Document 12/19/21 09:28 AK [id number] 12/19/21 09:30 AK 12/19/21 12/19/21 09:24 09:28 - Today's Visit Information Type of service Follow-up Visit Follow-up Visit (Physician/CUT OUT OPERATOR (Physician/CUT OUT OPERATOR ) ) Arrival Mode Ambulatory Ambulatory Patient Identification Verified (Name & Yes Yes ) Patient Requires Transmission-Based No No Precautions Safety Precautions NA NA Height and Weight Body Mass Index (BMI) 18.9 18.9 BMI Classification Normal Normal Vital Signs Temperature (97.8 F-99.1 F) 97.2 F L 96.9 F L Temperature Source Temporal Temporal Pulse Rate (60-100) 103 H 73 Pulse Location Monitor Monitor Blood Pressure (90/60-120/80) 140/69 H 111/68 Blood Pressure Mean (mm Hg) 92 82 Source Monitor Monitor Comment charted a few min ago on wrong pt. This is correct informaton History Since Last Visit- (Skip if this is Patient's initial visit) Have you changed medications since your No No last visit? Any new allergies or adverse reactions No No Had a fall/change in ADL's that may No No increase risk of falls Signs or symptoms of abuse and/or No No neglect since last visit Have you been in the hospital since your No No last visit? Has dressing in place as prescribed No No Has compression in place as prescribed N/A No Has offloadiing in place as prescribed N/A No Experienced any changes in pain level or No No management Left Footwear Regular Shoe Regular Shoe Right Footwear Regular Shoe Regular Shoe Pain Scale: 0-10 Numeric Is Patient Pain Free? Yes Yes WC - Nurse 1 - General Ulcer Measurement Start: 12/19/21 09:24 Freq: Status: Active Protocol: Activity Type Activity Date Activity User E-sign Co-sign Detail Recorded Client Recorded Date Recorded By Document 12/19/21 09:24 AK [id number] 12/19/21 09:27 AK Document 12/19/21 09:28 AK [id number] 12/19/21 09:30 AK 12/19/21 12/19/21 09:24 09:28 Wound Center Nurse 1 31 R Med LE -Combined with other wound No No -Current Size (cm) - Length 1 3 -Current Size (cm) - Width 0.5 1.6 -Current Size (cm) - Depth 0.1 0.1 -Total Square Cm 0.5 4.8 -Photo Taken No No -Tunneling No No -Undermining/Tunneling No No -Circular Undermining No No -Change in Wound Grade/Stage No No -Exudate Amt Medium Medium -Exudate Type Serosanguineous Serosanguineous -Wound Margin Distinct, Distinct, Outline Outline Attached Attached -Granulation Amt None Present (0 Medium (34-66%) %) -Granulation Quality [place] -Slough/Fibrin Yes Yes -Necrosis Amt Medium (34-66%) Medium (34-66%) -Necrotic Tissue Type Adherent Slough Adherent Slough -Structure Exposed N/A N/A -Texture (Mariella-wound Skin Appearance) No Abnormality, No Abnormality, Assessed Assessed -Moisture (Mariella-wound Skin Appearance) No Abnormality, No Abnormality, Assessed Assessed -Color (Mariella-wound Skin Appearance) No Abnormality, No Abnormality, Assessed Assessed -Temperature (Mariella-wound Skin No Abnormality No Abnormality Appearance) (Pt Warm) (Pt Warm) -Tenderness on Palpation (Mariella-wound No No Skin Appearance) -Ulcer Cleansing Rinsed/ Rinsed/ Irrigated with Irrigated with Saline Saline -Foul Odor after Cleansing No No -Anesthetic Used 5% Lidocaine 5% Lidocaine Gel Gel -Wound Comment(s) gauze only. Will need to reinforce teaching Right Calf (cm) 42 29 Right Ankle (cm) 24 21 Left Calf (cm) 41 Left Ankle (cm) 23 WC - Nurse 2 - General Ulcer CM Notes Start: 12/19/21 09:24 Freq: Status: Active Protocol: Activity Type Activity Date Activity User E-sign Co-sign Detail Recorded Client Recorded Date Recorded By Document 12/19/21 09:37 MW [id number] 12/19/21 09:39 MW Document 12/26/21 09:34 MW [id number] 12/26/21 09:39 MW 12/19/21 12/26/21 09:37 09:34 Wound Center Nurse 2 31 R Med LE -Time 09:37 09:34 -Correct Patient Yes Yes -Correct Side, Site, Position Yes Yes -Correct Procedure Yes Yes -Procedure Performed Yes Yes -Type of Procedure Debridement Debridement -Clinical Debridement Subcutaneous Subcutaneous -Tissue Removed Subcutaneous Subcutaneous -Post Debridement (cm) - Length 2.5 1.3 -Post Debridement (cm) - Width 1.2 0.8 -Post Debridement (cm) - Depth 0.1 0.1 -Total Square (Post) (cm) 3.00 1.04 -Area of Debridement (cm) - Length 2.5 1.3 -Area of Debridement (cm) - Width 1.2 0.8 -Total Square (Area) (cm) 3.00 1.04 -Tunneling No No -Undermining/Tunneling No No -Circular Undermining No No -Wound/Ulcer Outcome Not Healed Not Healed -Ulcer Cleansing Rinsed/ Rinsed/ Irrigated with Irrigated with Saline Saline -Foul Odor after Cleansing No No -Bioengineered Tissue No No -Bleeding Controlled with Pressure Pressure -Treatment Response Procedure Procedure Tolerated Well Tolerated Well -Offloading No No -Debridement - Subq, 1st 20sq cm Yes Yes Pain Scale: 0-10 Numeric Is Patient Pain Free? Yes Yes - Nurse 3 - General Ulcer D/C NN Start: 12/19/21 09:24 Freq: Status: Active Protocol: Activity Type Activity Date Activity User E-sign Co-sign Detail Recorded Client Recorded Date Recorded By Document 12/19/21 12:12 NH [id number] 12/19/21 12:15 NH Document 12/26/21 09:[address] [facility] Desktop 12/26/21 09:53 BMF 12/19/21 12/26/21 12:12 09:52 Wound Care Nurse 3 31 R Med LE -Ulcer Cleansing Rinsed/ Rinsed/ Irrigated with Irrigated with Saline Saline -Foul Odor after Cleansing No No -Negative Pressure Wound Therapy N/A -Primary Dressing Applied Aquacel Extra NonAdherent Contact Layer, Promogran -Other Dressing xeroform -Primary Dressing Covered/Secured with Dry Gauze & Dry Gauze & Roll Gauze, Roll Gauze, Secured with Secured with Tape Tape -Aquacel Extra 1 -Promogran 2 Right -Tubular Bandage Single Layer -Size of Tubigrip Used Size D -Size D ($) 1 Treatment Response Procedure Tolerated Well Pain Scale: 0-10 Numeric Is Patient Pain Free? Yes Yes - Visit Discharge Discharge Condition Stable Stable Ambulatory Status Ambulatory Transportation Private Auto Private Auto Medication Reconcilliation completed & Yes provided to patient/care provider Clinical Summary of Care Provided Yes Assessment/Plan Assessment/Plan (1) Essential hypertension: CODE(S): I10 - Essential (primary) hypertension (2) Nonhealing nonsurgical wound: CODE(S): T14.8XXA - Other injury of unspecified body region, initial encounter PLAN: Wash right lower leg with antibacterial soap pat dry apply Promogran to wound base moistened cover with Adaptic then gauze and Amairani and a double layer Tubigrip to the right leg Follow-up in 2 week
[2021-12-26 11:56] VITALS: BP 123/83; PULSE 81; TEMP 36.2; BMI 18.9
[2022-01-09 10:19] VITALS: BP 130/76; PULSE 78; TEMP 35.6; BMI 18.9
--- NOTE | 2022-01-09 11:38 | PN.PCM_ITS ---
History of Present Illness Date of Service: 01/09/22 Chief Complaint: Right lower leg avulsion laceration from Linen door. History of Wound: 86-year-old white female approximately 1 month ago caught the linen door on her leg and developed a partial avulsion laceration was seen by her family doctor has had 2 rounds of antibiotics and is currently using saline and dressing some days leaving it open to air. Progress of Wound: The wound is healed and patient will be discharged from the wound center Subjective Subjective Patient was extremely pleased with her care here and was happy Objective Data Objective Data As stated above patient be discharged from the wound center and she can follow- up as needed I suggested maybe covering that area with a dry dressing just to protect so she has not hit it it is all new skin. Vital Signs: Vital Signs Temp Pulse Resp BP 96.1 F L 78 18 130/76 H 01/09/22 10:19 01/09/22 10:19 12/15/21 01:44 01/09/22 10:19 Weight: 128 lb 3.067 oz Body Mass Index (BMI) 18.9 Physical Exam Const oriented x3 General Appearance: cooperative Exam Limitations: no limitations HEENT normocephalic Head and Scalp: normal to inspection Eyes PERRL Neck full ROM Resp normal respiratory effort Effort and Inspection: able to speak in complete sentences Auscultation: clear to auscultation bilaterally Cardio regular rate and regular rhythm Palpation: normal PMI Rate: regular rate Rhythm: regular rhythm GI Palpation: soft and no hepatosplenomegaly external exam normal Extremity normal to inspection Skin no rashes or lesions noted Skin Narrative: Open wound right lower leg appears to be an avulsion laceration. Bleeding under control already has new cells growing in base some erythema around the edge of wound and edema of the right lower leg noticeable. Neuro oriented x3 Psych Appearance: grossly normal Speech: normal speech Thought Content: normal thought content Judgement: judgement good Debridement Note Debridement Note No debridement was completed: No debridement was completed today Post-Debridement Measurements and Additional Note: Post-Debridement Measurements/Treatment ILIANA - Nurse 1 - General Ulcer Assessment Start: 12/19/21 09:24 Freq: Status: Active Protocol: TAMMIE Activity Type Activity Date Activity User E-sign Co-sign Detail Recorded Client Recorded Date Recorded By Document 12/19/21 09:24 [email or web address] [id number] 12/19/21 09:27 AK Document 12/19/21 09:28 AK [id number] 12/19/21 09:30 AK Document 12/26/21 11:56 AK [id number] 12/26/21 11:58 AK Document 01/09/22 10:19 AK [id number] 01/09/22 10:20 AK 12/19/21 12/19/21 12/26/21 09:24 09:28 11:56 WC - Today's Visit Information Type of service Follow-up Visit Follow-up Visit Follow-up Visit (Physician/HIDE DROPPER (Physician/HIDE DROPPER (Physician/HIDE DROPPER ) ) ) Arrival Mode Ambulatory Ambulatory Ambulatory Patient Identification Verified (Name & Yes Yes Yes ) Patient Requires Transmission-Based No No No Precautions Safety Precautions NA NA NA Height and Weight Body Mass Index (BMI) 18.9 18.9 18.9 BMI Classification Normal Normal Normal Vital Signs Temperature (97.8 F-99.1 F) 97.2 F L 96.9 F L 97.2 F L Temperature Source Temporal Temporal Temporal Pulse Rate (60-100) 103 H 73 81 Pulse Location Monitor Monitor Monitor Blood Pressure (90/60-120/80) 140/69 H 111/68 123/83 H Blood Pressure Mean (mm Hg) 92 82 96 Source Monitor Monitor Monitor Comment charted a few min ago on wrong pt. This is correct informaton History Since Last Visit- (Skip if this is Patient's initial visit) Have you changed medications since your No No No last visit? Any new allergies or adverse reactions No No No Had a fall/change in ADL's that may No No No increase risk of falls Signs or symptoms of abuse and/or No No No neglect since last visit Have you been in the hospital since your No No No last visit? Has dressing in place as prescribed No No Yes Has compression in place as prescribed N/A No N/A Has offloadiing in place as prescribed N/A No N/A Experienced any changes in pain level or No No No management Left Footwear Regular Shoe Regular Shoe Regular Shoe Right Footwear Regular Shoe Regular Shoe Regular Shoe Pain Scale: 0-10 Numeric Is Patient Pain Free? Yes Yes Yes 01/09/22 10:19 WC - Today's Visit Information Type of service Follow-up Visit (Physician/HIDE DROPPER ) Arrival Mode Ambulatory Patient Identification Verified (Name & Yes ) Patient Requires Transmission-Based No Precautions Safety Precautions Height and Weight Body Mass Index (BMI) 18.9 BMI Classification Normal Vital Signs Temperature (97.8 F-99.1 F) 96.1 F L Temperature Source Temporal Pulse Rate (60-100) 78 Pulse Location Monitor Blood Pressure (90/60-120/80) 130/76 H Blood Pressure Mean (mm Hg) 94 Source Monitor Comment History Since Last Visit- (Skip if this is Patient's initial visit) Have you changed medications since your No last visit? Any new allergies or adverse reactions No Had a fall/change in ADL's that may No increase risk of falls Signs or symptoms of abuse and/or No neglect since last visit Have you been in the hospital since your No last visit? Has dressing in place as prescribed Yes Has compression in place as prescribed Has offloadiing in place as prescribed N/A Experienced any changes in pain level or No management Left Footwear Regular Shoe Right Footwear Regular Shoe Pain Scale: 0-10 Numeric Is Patient Pain Free? Yes WC - Nurse 1 - General Ulcer Measurement Start: 12/19/21 09:24 Freq: Status: Active Protocol: Activity Type Activity Date Activity User E-sign Co-sign Detail Recorded Client Recorded Date Recorded By Document 12/19/21 09:24 AK [id number] 12/19/21 09:27 AK Document 12/19/21 09:28 AK [id number] 12/19/21 09:30 AK Document 12/26/21 11:56 AK [id number] 12/26/21 11:58 AK 12/19/21 12/19/21 12/26/21 09:24 09:28 11:56 Wound Center Nurse 1 31 R Med LE -Combined with other wound No No No -Current Size (cm) - Length 1 3 1.2 -Current Size (cm) - Width 0.5 1.6 0.5 -Current Size (cm) - Depth 0.1 0.1 0.2 -Total Square Cm 0.5 4.8 0.60 -Photo Taken No No Yes -Tunneling No No No -Undermining/Tunneling No No No -Circular Undermining No No No -Change in Wound Grade/Stage No No No -Exudate Amt Medium Medium Small -Exudate Type Serosanguineous Serosanguineous Serosanguineous -Wound Margin Distinct, Distinct, Distinct, Outline Outline Outline Attached Attached Attached -Granulation Amt None Present (0 Medium (34-66%) None Present (0 %) %) -Granulation Quality [place] N/A -Slough/Fibrin Yes Yes Yes -Necrosis Amt Medium (34-66%) Medium (34-66%) Small (1-33%) -Necrotic Tissue Type Adherent Slough Adherent Slough Adherent Slough -Structure Exposed N/A N/A N/A -Texture (Mariella-wound Skin Appearance) No Abnormality, No Abnormality, No Abnormality, Assessed Assessed Assessed -Moisture (Mariella-wound Skin Appearance) No Abnormality, No Abnormality, No Abnormality, Assessed Assessed Assessed -Color (Mariella-wound Skin Appearance) No Abnormality, No Abnormality, No Abnormality, Assessed Assessed Assessed -Temperature (Mariella-wound Skin No Abnormality No Abnormality No Abnormality Appearance) (Pt Warm) (Pt Warm) (Pt Warm) -Tenderness on Palpation (Mariella-wound No No No Skin Appearance) -Ulcer Cleansing Rinsed/ Rinsed/ Rinsed/ Irrigated with Irrigated with Irrigated with Saline Saline Saline -Foul Odor after Cleansing No No No -Anesthetic Used 5% Lidocaine 5% Lidocaine 5% Lidocaine Gel Gel Gel -Wound Comment(s) gauze only. Will need to reinforce teaching Right Calf (cm) 42 29 Right Ankle (cm) 24 21 Left Calf (cm) 41 Left Ankle (cm) 23 WC - Nurse 2 - General Ulcer CM Notes Start: 12/19/21 09:24 Freq: Status: Active Protocol: Activity Type Activity Date Activity User E-sign Co-sign Detail Recorded Client Recorded Date Recorded By Document 12/19/21 09:37 MW [id number] 12/19/21 09:39 MW Document 12/26/21 09:34 MW [id number] 12/26/21 09:39 MW Document 01/09/22 10:09 MW [id number] 01/09/22 10:10 MW 12/19/21 12/26/21 01/09/22 09:37 09:34 10:09 Wound Center Nurse 2 31 R Med LE -Time 09:37 09:34 10:10 -Correct Patient Yes Yes Yes -Correct Side, Site, Position Yes Yes Yes -Correct Procedure Yes Yes Yes -Procedure Performed Yes Yes No -Type of Procedure Debridement Debridement -Clinical Debridement Subcutaneous Subcutaneous -Tissue Removed Subcutaneous Subcutaneous -Post Debridement (cm) - Length 2.5 1.3 0 -Post Debridement (cm) - Width 1.2 0.8 0 -Post Debridement (cm) - Depth 0.1 0.1 0 -Total Square (Post) (cm) 3.00 1.04 0 -Area of Debridement (cm) - Length 2.5 1.3 -Area of Debridement (cm) - Width 1.2 0.8 -Total Square (Area) (cm) 3.00 1.04 -Tunneling No No -Undermining/Tunneling No No -Circular Undermining No No -Wound/Ulcer Outcome Not Healed Not Healed Healed- Epithelialized -Ulcer Cleansing Rinsed/ Rinsed/ Irrigated with Irrigated with Saline Saline -Foul Odor after Cleansing No No -Bioengineered Tissue No No -Bleeding Controlled with Pressure Pressure -Treatment Response Procedure Procedure Tolerated Well Tolerated Well -Offloading No No -Debridement - Subq, 1st 20sq cm Yes Yes Pain Scale: 0-10 Numeric Is Patient Pain Free? Yes Yes Yes WC - Nurse 3 - General Ulcer D/C NN Start: 12/19/21 09:24 Freq: Status: Active Protocol: Activity Type Activity Date Activity User E-sign Co-sign Detail Recorded Client Recorded Date Recorded By Document 12/19/21 12:12 DC [id number] 12/19/21 12:15 DC Document 12/26/21 09:52 [facility] Desktop 12/26/21 09:53 [facility] Document 01/09/22 10:18 DL [id number] 01/09/22 10:19 DL 12/19/21 12/26/21 01/09/22 12:12 09:52 10:18 Wound Care Nurse 3 31 R Med LE -Ulcer Cleansing Rinsed/ Rinsed/ Irrigated with Irrigated with Saline Saline -Foul Odor after Cleansing No No -Negative Pressure Wound Therapy N/A -Primary Dressing Applied Aquacel Extra NonAdherent Contact Layer, Promogran -Other Dressing xeroform -Primary Dressing Covered/Secured with Dry Gauze & Dry Gauze & Roll Gauze, Roll Gauze, Secured with Secured with Tape Tape -Aquacel Extra 1 -Promogran 2 Right -Tubular Bandage Single Layer -Size of Tubigrip Used Size D -Size D ($) 1 Treatment Response Procedure Procedure Tolerated Well Tolerated Well Pain Scale: 0-10 Numeric Is Patient Pain Free? Yes Yes Yes WC - Visit Discharge Discharge Condition Stable Stable Stable Ambulatory Status Ambulatory Ambulatory Transportation Private Auto Private Auto Private Auto Medication Reconcilliation completed & Yes provided to patient/care provider Clinical Summary of Care Provided Yes Notes: Pt healed/ discharged. Protect area for 1 week. Assessment/Plan Assessment/Plan (1) Essential hypertension: CODE(S): I10 - Essential (primary) hypertension (2) Nonhealing nonsurgical wound: CODE(S): T14.8XXA - Other injury of unspecified body region, initial encounter PLAN: Wear protective gauze dressing for 1 more week otherwise patient is discharged from the wound center follow-up as needed
== END 2022-01-14 23:59 | disposition home or self-care (01) ==
LOC: WC 09:45
PROVIDERS: PCP Nurse Practitioner; Visit Provider Nurse Practitioner
DX: S81.811D Laceration without foreign body, right lower leg, subsequent encounter (principal); W22.09XD Striking against other stationary object, subsequent encounter; I10 Essential (primary) hypertension; Z79.02 Long term (current) use of antithrombotics/antiplatelets; Z79.899 Other long term (current) drug therapy
CPT/HCPCS: 11042; 99213; G0463

== ENCOUNTER 2022-12-28 10:12 | Emergency (ER) | payer MEDICARE, SELFPAY ==
[2022-12-28 10:13] VITALS: BP 163/110; PULSE 75; RESP 16; TEMP 36.6; O2SAT 97
--- NOTE | 2022-12-28 10:18 | RAD_ITS ---
STUDY: X-RAY - RIGHT FEMUR REASON FOR STUDY: Female, 87 years old. Trauma TECHNIQUE: 4 view(s) of the femur. COMPARISON: None. FINDINGS: Normal visualized femur. Normal visualized soft tissue structure. There is no demonstrated fracture or destructive process of the femur. 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 No fracture or cortical break is seen. A large knee joint effusion is visualized. Atherosclerotic calcifications are present. RAD/Femur Min 2 Views IMPRESSION: 1. 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 No fracture or cortical break is seen. A large knee joint effusion is visualized. Electronically Signed: Yoandy Trejo MD at 12:33 EDT ,
--- NOTE | 2022-12-28 10:18 | CT_ITS ---
STUDY: CT BRAIN WITHOUT CONTRAST REASON FOR EXAM: Female, 87 years old. Fall trauma RADIATION DOSAGE (If Supplied By Facility): CTDIvol = ( 44.99 ) mGy, DLP = ( 762.36 ) mGycm TECHNIQUE: Transaxial CT imaging of the brain was performed without administration of intravenous contrast material. Individualized dose optimization techniques were used for this CT. COMPARISON: None. FINDINGS: Normal soft tissue structures. 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 No visualized skull fracture or subdural hematoma or midline shift. There is moderate cerebral atrophy with widening of the extra-axial spaces and ventricular dilatation. There are areas of decreased attenuation within the white matter tracts of the supratentorial brain, consistent with microvascular disease changes. There are small punctate calcifications of the basal ganglia which are seen in the aging brain as a normal variant. Normal brainstem. Normal cerebellum. There is no intracranial hemorrhage. There are no findings of an acute ischemic infarction. Normal visualized paranasal sinuses. CT/Brain/Head without Contrast IMPRESSION: Chronic involutional changes of the brain. Electronically Signed: Yoandy Trejo MD at 12:43 EDT ,
--- NOTE | 2022-12-28 10:20 | ED.VIS.FALL ---
HPI HPI - Fall History of Present Illness Chief Complaint: Fall Informant: patient Narrative Narrative: Patient presents by EMS after a fall about 10 hours ago. Patient states she has an old house with slippery tile. She was walking in socks. She oftentimes uses a cane but was not using it. She states her foot just slipped out from under her and she fell onto her right hip/buttock area. She states she did not sure if she hit her head but does not think it was that hard. The fall was mechanical and not syncopal. She was not feeling ill. But she was not able to get up. Every time she tried to get up she had too much pain in her right hip area. It took her some time to crawl until she did get to the phone and call for help. I asked her if she wants something for pain now. She states she does not need anything for pain just laying in bed but she would like a drink of water. Of note, she is on Plavix. [facility] Medical History (Updated 12/28/22 @ 12:[address] Eleno Rosado MD) Abnormal ECG Atherosclerotic heart disease of [place] coronary artery without angina pectoris CAD (coronary artery disease) Cardiomyopathy Chronic systolic (congestive) heart failure Concussion COPD (chronic obstructive pulmonary disease) CVA (cerebral vascular accident) Debility Essential hypertension Fall HLD (hyperlipidemia) Right arm pain SDH (subdural hematoma) Seizure Stroke Home Medications clopidogrel 75 mg tablet 75 mg PO DAILY CLOTS 11/24/17 [History Last Taken 11/24/17] donepezil 5 mg tablet 5 mg PO QHS 12/02/17 [Rx Last Taken Unknown] hydralazine 10 mg tablet 10 mg PO 4X/DAY PRN SBP >160 06/26/18 [History Last Taken Unknown] amitriptyline 100 mg tablet 50 mg PO DAILY 12/28/18 [History Last Taken Unknown] carvedilol 3.125 mg tablet 3.125 mg PO BID 12/28/18 [History Last Taken Unknown] atorvastatin 10 mg tablet 10 mg PO DAILY 08/17/21 [History Last Taken Unknown] bisacodyl 5 mg tablet 10 mg PO QHS 08/17/21 [History Last Taken Unknown] diclofenac sodium 1 % topical gel (Voltaren Arthritis Pain) 1 ea topical 4X/DAY 08/17/21 [History Last Taken Unknown] kxtcjwov-yikwylsvdk-el glycn-C 500 mg-400 mg capsule 1 cap PO DAILY 08/17/21 [History Last Taken Unknown] hydrocortisone 2.5 % rectal cream with applicator 1 ea SD BID PRN PRN Pain 08/17/21 [History Last Taken Unknown] clopidogrel 75 mg tablet (Plavix) 75 mg PO DAILY 11/28/21 [History Last Taken Unknown] Allergy/AdvReac Type Severity Reaction Status Date / Time Sulfa (Sulfonamide Allergy Severe Hives Verified 12/28/22 10:19 Antibiotics) gabapentin AdvReac Other Verified 12/28/22 10:19 zolpidem [From Ambien] AdvReac Unknown Verified 12/28/22 10:19 Family History Father Myocardial infarction, Onset Age: 75 Surgical History History of left heart catheterization (LHC) (~05/23/06) History of spinal fusion Social History Smoking Status: Former smoker alcohol intake: current details: occasional ROS ROS ED Constitutional Constitutional ED: Denies chills or fever(s) Eyes Eyes: Denies blurry vision or change in vision ENT ENT ED: Denies rhinorrhea Cardiovascular Cardiovascular: Denies chest pain, palpitations or racing heartbeat Respiratory/Chest Respiratory/Chest: Denies cough or dyspnea Gastrointestinal Gastrointestinal: Denies abdominal pain, nausea or vomiting Genitourinary Genitourinary ED: Denies hematuria Musculoskeletal Musculoskeletal: Denies back pain or neck pain Integumentary Reports Abrasions Neurologic Neurologic: Reports headache(s); Denies paresthesias or weakness Endocrine Endocrinology: Denies polydipsia or polyphagia Hematologic/Lymphatic Hematologic/Lymphatic: Reports easy bleeding and easy bruising Allergic/Immunologic Allergic/Immunologic ED: Denies urticaria EXAM Physical Exam Narrative Exam Narrative: General: Patient is actually wide awake alert and appropriate. She is nontoxic in appearance. She looks comfortable despite her inability to get up. HEENT: I am not seeing signs of bruising or contusions. There is a slightly raised area on the back of the scalp just left of center. But is not tender. But there is suspicion that she has hit her head, she has a history of subdural hematoma and is on Plavix so she will be scanned. Neck is supple and there is no tenderness or pain with motion. Lungs are clear and chest is nontender. Saturations are normal at 97% on room air showing no hypoxia. Heart is regular. I do not hear a murmur on her. Abdomen is soft and nontender. I hear no bruit. Spine shows no tenderness of the cervical thoracic or lumbosacral area. Extremities I do not see shortening or rotation. She can lift her right lower leg from the knee down off the bed but she has trouble lifting the whole leg off the bed. She gets pain in the right hip area. I also noticed small abrasion on the posterior aspect of her right elbow. It is only a few millimeters around. There is no actual pain in the elbow. Neurologically she is awake alert appropriate and pretty good informant. Const Vital Signs: 12/28/22 10:13 12/28/22 10:20 12/28/22 12:33 Temperature 97.8 F Temperature Source Oral Pulse Rate 75 71 Respiratory Rate 16 Respiratory Effort Normal Non-Labored Respiratory Depth Normal Respiratory Pattern Normal Blood Pressure 163/110 H 167/81 H Blood Pressure Mean 127 109 Pulse Ox 97 Oxygen Delivery Method Room Air Room Air MDM MDM MDM Narrative Medical decision making narrative: My independent interpretation of her single view pelvis x-ray shows no acute fracture. Note is made of prior surgery. My independent interpretation of 4 view x-ray of her right femur shows no fracture but there is DJD. My independent interpretation of the patient's CT scan of the head without contrast shows no acute process. No sign of bleeding. There is some atrophy. My independent interpretation of her CT scan of the right hip shows no definite fracture. There is a small lucency at the inferior aspect of the acetabulum but this is not weightbearing and may be a cyst. Final reading of the above images is pending. Patient's CBC shows no marked abnormalities. Patient's electrolytes are overall relatively normal. Patient's total CPK is normal at 62. Final reading of the CT of her hip and the head are negative for acute process. We walked the patient here. We used a walker. She was pretty stable with this. She states she normally uses a cane at home but does have a walker. I sat down with her and had a long talk. She would like to go home. She feels really at her baseline. She has problems with her right knee all the time. But she states she takes care of her house. She does laundry cleaning and cooking. She does feel safe going home. I talked with her about the possibility of rehab. I also talked that she could talk to her physician and maybe get some help in the house on occasion. If she does not feel safe at home or feels too weak, she is free to come back. But at this point she does not want to come in the hospital. I have no medical acute reason to put her in the hospital at this time. Lab Data Attestation: I reviewed the patient's lab results. Labs: Laboratory Results - last 24 hr 12/28/22 10:37 WBC 6.8 RBC 4.69 Hgb 12.3 Hct 41.9 MCV 89.3 MCH 26.2 L MCHC 29.4 L RDW Std Deviation 45.1 H RDW Coeff of Karine 14.0 Plt Count 292 MPV 9.7 Immature Gran % (Auto) 0.400 Neut % (Auto) 65.1 Lymph % (Auto) 22.5 [place] % (Auto) 8.6 Eos % (Auto) 2.8 Baso % (Auto) 0.6 Absolute Neuts (auto) 4.5 Absolute Lymphs (auto) 1.54 Nucleated RBC % 0 Sodium 141 Potassium 3.9 Chloride 108 H Carbon Dioxide 31.0 Anion Gap 2 L BUN 16 Creatinine 0.81 Est GFR (MDRD) Af Amer 86 Est GFR (MDRD) Non-Af 71 BUN/Creatinine Ratio 19.7 Glucose 98 Calcium 9.3 Total Creatine Kinase 62 Radiography Diagnostic Testing: Clinical Impression(s) from Imaging Studies Brain CT 12/28/22 10:18 IMPRESSION: Chronic involutional changes of the brain. Electronically Signed: Yoandy Trejo MD at 12:43 EDT , Femur X-Ray 12/28/22 10:18 IMPRESSION: 1. 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 No fracture or cortical break is seen. A large knee joint effusion is visualized. Electronically Signed: Yoandy Trejo MD at 12:33 EDT , Pelvis X-Ray 12/28/22 11:37 IMPRESSION: No acute fractures Electronically Signed: Yoandy Trejo MD at 12:13 EDT , Lower Extremity CT 12/28/22 11:40 IMPRESSION: 1. No demonstrated acute fracture of the right hip or hemipelvic structures or acetabulum. Electronically Signed: Yoandy Trejo MD at 12:41 EDT , Discharge Plan Triage Chief Complaint: Fall ED Provider: Eleno Rosado Dx/Rx/DC Orders Clinical Impression: Fall at home, Pain in right hip Instructions: ED Mechanical Fall Prescriptions: No Action hydralazine 10 mg tablet 10 mg PO 4X/DAY PRN (Reason: SBP >160) amitriptyline 100 mg tablet 50 mg PO DAILY carvedilol 3.125 mg tablet 3.125 mg PO BID clopidogrel 75 MG tablet 75 mg PO DAILY Patient Comments: donepezil 5 MG tablet 5 mg PO QHS 0RF atorvastatin 10 mg Tablet 10 mg PO DAILY bisacodyl 5 mg Tablet 10 mg PO QHS Cosamin DS 500-400 mg Capsule 1 cap PO DAILY diclofenac sodium [Voltaren Arthritis Pain] 1 % Gel 1 ea TOPICAL 4X/DAY Anusol-HC 2.5 % Cream With Applicator 1 ea SD BID PRN PRN (Reason: Pain) clopidogrel [Plavix] 75 mg Tablet 75 mg PO DAILY Primary Care Provider: Natalee Spaulding Referrals: Older,Anca [employer]ELOPER, [employer] [Non-Staff] - As soon as possible Disposition Disposition: Home, Self Care
[2022-12-28] MEDS: 0.9% Normal Saline (500mL Bag) 500 ML 1000 ML IV (10:39)
[2022-12-28 10:53] LABS: Absolute Lymphocyte Count 1.54 X10^3/uL (0.83-4.51); Absolute Neutrophil Count 4.5 X10^3/uL (2.0-7.7); Basophil# 0.04 X10^3/uL; Basophil% 0.6 % (0-1); Eosinophil# 0.19 X10^3/uL; Eosinophils% 2.8 % (0-5); Hematocrit 41.9 % (37-47); Hemoglobin 12.3 g/dL (12.0-15.0); Lymphocyte # 1.54 X10^3/ul (0.83-4.51); Lymphocyte % 22.5 % (19-41); Mean Corp Hgb Conc 29.4 g/dL (32-36); Mean Corpuscular Hgb 26.2 pg (27.0-32.0); Mean Corpuscular Volume 89.3 fL (81-99); Mean Platelet Vol. 9.7 fl (6.2-12.0); Monocyte# 0.59 X10^3/uL; Monocyte% 8.6 % (0-10); NRBC Flagged by Analyzer 0 % (0-5); Neutrophil # 4.45 X10^3/uL (2.7-7.7); Neutrophil % 65.1 % (47-70); Platelet Count 292 K/mm3 (150-450); RBC Distribution Width SD 45.1 fl (35.1-43.9); Red Blood Count 4.69 M/mm3 (4.2-5.4); White Blood Count 6.8 K/mm3 (4.4-11.0)
[2022-12-28 10:58] LABS: Anion Gap 2 (5-15); BUN 16 mg/dL (7-18); BUN/Creat Ratio 19.7 RATIO (10-20); Calcium,Total 9.3 mg/dL (8.5-10.1); Chloride 108 mmol/L (98-107); Creatinine, Serum 0.81 mg/dL (0.55-1.02); EST Glomerular Filtration Rate 71 mL/min (>60); Est Glom Filt Rate - Afr Amer 86 mL/min (>60); Glucose 98 mg/dL (74-106); Potassium 3.9 mmol/L (3.5-5.1); Sodium Level 141 mmol/L (136-145)
[2022-12-28 11:30] LABS: CPK Total, Creatine Kinase 62 U/L (26-192)
--- NOTE | 2022-12-28 11:37 | RAD_ITS ---
STUDY: X-RAY - PELVIS REASON FOR EXAM: Female, 87 years old. TRAUMA, FALL TECHNIQUE: One view of the pelvis was obtained. COMPARISON: None. FINDINGS: There is a non-specific bowel gas pattern. Normal visualized soft tissue structures. No demonstrated acute fractures of the hips or of the pelvic bony structures. Lower lumbar spine hardware is present. Normal bilateral iliac wings, sacroiliac joints and visualized sacrum. Normal visualized bilateral superior and inferior pubic rami. Normal pubic symphysis. Normal ischial tuberosities. Normal visualized right femoral head. Normal right acetabulum. Normal right hip joint. Normal visualized left femoral head. Normal left acetabulum. Normal left hip joint. RAD/Pelvis 1 or 2 Views IMPRESSION: No acute fractures Electronically Signed: Yoandy Trejo MD at 12:13 EDT ,
--- NOTE | 2022-12-28 11:40 | CT_ITS ---
STUDY: CT RIGHT HIP WITHOUT CONTRAST REASON FOR EXAM: Female, 87 years old. Fall trauma RADIATION DOSAGE (If Supplied By Facility): CTDIvol = ( 12.26 ) mGy, DLP = ( 413.37 ) mGycm Individualized dose optimization techniques were used for this CT. ? TECHNIQUE: Transaxial CT imaging of the hip (pelvis) was performed. Coronal and sagittal images were reformatted. COMPARISON: Pelvic x-ray dated December 28, 2022 FINDINGS: No demonstrated acute fracture of the right hip or hemipelvis bony structures or pubic rami. The bony structures are mildly demineralized. No demonstrated fracture of the acetabulum. No displaced bony fragment or cortical break is seen. No visualized large hip joint effusion. No visualized soft tissue fluid collection or hematoma. Visualization of the intrapelvic structures are unremarkable. Rectosigmoid diverticulosis is present. Normal femoral head, neck, intertrochanteric region and visualized proximal femur. Normal acetabulum. Normal hip joint. Normal visualized superior and inferior pubic rami and ischial tuberosities. Mild degenerative changes are present in the pubic symphysis. CT/Extremity Lower without Contra IMPRESSION: 1. No demonstrated acute fracture of the right hip or hemipelvic structures or acetabulum. Electronically Signed: Yoandy Trejo MD at 12:41 EDT ,
[2022-12-28] MEDS: Acetaminophen 500 MG Tablet PO (12:31)
[2022-12-28 12:33] VITALS: BP 167/81; PULSE 71
[2022-12-28 13:24] VITALS: PULSE 76; RESP 16
== END 2022-12-28 13:37 | disposition home or self-care (01) ==
PROVIDERS: Emergency Provider Emergency Medicine; PCP Internal Medicine; Visit Provider Emergency Medicine
DX: M25.551 Pain in right hip (principal); J44.9 Chronic obstructive pulmonary disease, unspecified; I11.0 Hypertensive heart disease with heart failure; I50.22 Chronic systolic (congestive) heart failure; E78.5 Hyperlipidemia, unspecified; Z87.891 Personal history of nicotine dependence; I25.10 Atherosclerotic heart disease of native coronary artery without angina pectoris; W01.10XA Fall on same level from slipping, tripping and stumbling with subsequent striking against unspecified object, initial encounter; Z79.02 Long term (current) use of antithrombotics/antiplatelets; Z79.899 Other long term (current) drug therapy; Y92.009 Unspecified place in unspecified non-institutional (private) residence as the place of occurrence of the external cause
CPT/HCPCS: 70450; 72170; 73552; 73700; 80048; 82550; 85025; 96360; 96361; 99284

== ENCOUNTER 2023-01-09 16:02 | Emergency (ER) | payer MEDICARE, SELFPAY ==
[2023-01-09 16:03] VITALS: BP 144/72; PULSE 93; RESP 18; TEMP 36.5; O2SAT 97; BMI 19.2
--- NOTE | 2023-01-09 16:13 | ED.VIS.FALL ---
HPI HPI - Fall History of Present Illness Chief Complaint: Fall Narrative Narrative: 87-year-old female presents status [place] the [place]. She presents via EMS. She states that she was the only 1 in the lobby of the bank, caught her toe, and fell forward onto her bilateral knees. She also injured her right wrist. She is right-hand dominant. She states they would not let her leave and wanted her to be evaluated. She denies hitting her head or loss of consciousness, no neck pain. She has mild swelling of her right lateral wrist. She was able to ambulate with her cane afterwards. Of note, she does take Plavix for coronary artery disease. [facility] Medical History Abnormal ECG Atherosclerotic heart disease of [place] coronary artery without angina pectoris CAD (coronary artery disease) Cardiomyopathy Chronic systolic (congestive) heart failure Concussion COPD (chronic obstructive pulmonary disease) CVA (cerebral vascular accident) Debility Essential hypertension Fall HLD (hyperlipidemia) Right arm pain SDH (subdural hematoma) Seizure Stroke Home Medications clopidogrel 75 mg tablet 75 mg PO DAILY CLOTS 11/24/17 [History Last Taken 11/24/17] donepezil 5 mg tablet 5 mg PO QHS 12/02/17 [Rx Last Taken Unknown] hydralazine 10 mg tablet 10 mg PO 4X/DAY PRN SBP >160 06/26/18 [History Last Taken Unknown] amitriptyline 100 mg tablet 50 mg PO DAILY 12/28/18 [History Last Taken Unknown] carvedilol 3.125 mg tablet 3.125 mg PO BID 12/28/18 [History Last Taken Unknown] atorvastatin 10 mg tablet 10 mg PO DAILY 08/17/21 [History Last Taken Unknown] bisacodyl 5 mg tablet 10 mg PO QHS 08/17/21 [History Last Taken Unknown] diclofenac sodium 1 % topical gel (Voltaren Arthritis Pain) 1 ea topical 4X/DAY 08/17/21 [History Last Taken Unknown] nhwiykbl-iuqnuzpdzu-fd glycn-C 500 mg-400 mg capsule 1 cap PO DAILY 08/17/21 [History Last Taken Unknown] hydrocortisone 2.5 % rectal cream with applicator 1 ea AL BID PRN PRN Pain 08/17/21 [History Last Taken Unknown] clopidogrel 75 mg tablet (Plavix) 75 mg PO DAILY 11/28/21 [History Last Taken Unknown] Allergy/AdvReac Type Severity Reaction Status Date / Time Sulfa (Sulfonamide Allergy Severe Hives Verified 01/09/23 16:05 Antibiotics) zolpidem [From Ambien] AdvReac Unknown Verified 01/09/23 16:05 Family History Father Myocardial infarction, Onset Age: 75 Surgical History History of left heart catheterization (LHC) (~05/23/06) History of spinal fusion Social History Smoking Status: Former smoker alcohol intake: current details: occasional ROS ROS ED ROS Narrative Constitutional: No fever, no chills. HEENT: No sore throat. No neck pain. No loss of vision. No rhinorrhea. Cardiovascular: No chest pain. No palpitations. No pedal edema. Respiratory: No cough, no shortness of breath. Abdominal: No abdominal pain. No nausea. No vomiting. Genitourinary: No dysuria. No hematuria. Musculoskeletal: Pain and swelling right distal radius with ecchymosis. Bilateral knee pain. Neurologic: No headaches. No dizziness. No lightheadedness. Skin: No rash. No change in color. Psychiatric: No depression. No anxiety. EXAM Physical Exam Narrative Exam Narrative: Afebrile. Vital signs noted. GCS 15. ABCs intact. HEENT: Normocephalic. Atraumatic. PERRL, EOMI. Neck soft and supple. No point tenderness or step off. Cardiovascular: Regular rate and rhythm. No murmurs, rubs, or gallops appreciated. Respiratory: No tachypnea. Lungs clear to auscultation bilaterally. Gastrointestinal: Abdomen soft, nontender, with normoactive bowel sounds. No rebound or guarding. Neurological: Awake. Alert. Nonfocal, nonlateralizing. Skin: No rash. Normal color. No pallor. Musculoskeletal: No pedal edema. Full range of motion extremities. Mild tenderness distal radius with noted ecchymosis and mild hematoma. Flexion extension bilateral knees intact, no evidence of laceration. Able to lift legs off bed without difficulty. Palpable dorsalis pedis pulses bilaterally. Const Vital Signs: 01/09/23 16:03 01/09/23 16:20 Temperature 97.7 F L Temperature Source Temporal Pulse Rate 93 Respiratory Rate 18 Respiratory Effort Normal Respiratory Depth Normal Respiratory Pattern Normal Blood Pressure 144/72 H Blood Pressure Mean 96 Pulse Ox 97 Oxygen Delivery Method Room Air MDM MDM MDM Narrative Medical decision making narrative: Patient did not strike her head, she has a normal neurological examination, I do not feel CT of the brain or neck is indicated. She had fallen forward onto her knees she stated. Concern would mainly be for right distal radius fracture versus sprain. She may does have a hematoma secondary to her Plavix use. X-rays were obtained of the right wrist in 3 views and interpreted by myself independently. I will also obtain 4 view bilateral knee x-rays. She was administered Tylenol 650 mg for analgesia. She was able to ambulate with her cane in the ED to the cot and independently sit down. X-rays of the right wrist and 3 views interpreted by myself independently shows no evidence of an acute fracture. Additionally, her body in the lateral knee x-rays and 4 views interpreted by myself independently shows osteoarthritis but no evidence of an acute fracture. I reviewed the radiology report for all 3 sets of x-rays and they confirmed my independent interpretation. At this point in time, she will continue ice and elevation and [id number] analgesics for her right wrist hematoma and sprain. She states that the splint will not hinder her use of a cane. She was placed in a Velcro wrist splint. She can wear it for comfort and support but remove for bathing and sleeping. At this point in time, I do not feel she requires observation. She would like discharge. She will follow-up with her primary care provider. Return instructions to the emergency department were reviewed. Disposition is discharged home in stable condition. History & Record Review Discussion w/independent historian: Patient Additional record(s) reviewed:: Prior ED visit (Noncontributory to current chief complaint) Radiography Diagnostic Testing: Clinical Impression(s) from Imaging Studies Knee X-Ray 01/09/23 16:24 IMPRESSION: Bony osteopenia. Mild degenerative change. No visualized acute fracture. Electronically Signed: Eli Powell MD at 17:01 EDT Reading Location ID and State: [facility] / [place] Tel , Service support , Knee X-Ray 01/09/23 16:24 IMPRESSION: Improved joint effusion since prior study December 28 2022. Interval worsening of the arthrosis of the lateral compartment since November 05, 2019. There is severe degenerative change of the right knee with chronic appearing remodeling of the lateral compartment of the right knee. If appropriate an MRI would be recommended for further evaluation. No visualized acute fracture. Electronically Signed: Eli Powell MD at 18:15 EDT , Wrist X-Ray 01/09/23 16:24 IMPRESSION: Stable wrist. No visualized acute fracture. Electronically Signed: Eli Powell MD at 17:08 EDT , Discharge Plan Triage Chief Complaint: Fall ED Provider: Ulises Penaloza Dx/Rx/DC Orders Clinical Impression: Traumatic hematoma of right wrist, Bilateral knee pain, Fall, Sprain of wrist, right Instructions: ED Contusion, Lower Extremity, ED Contusion, Upper Extremity, ED Mechanical Fall, ED Wrist Sprain Prescriptions: No Action hydralazine 10 mg tablet 10 mg PO 4X/DAY PRN (Reason: SBP >160) amitriptyline 100 mg tablet 50 mg PO DAILY carvedilol 3.125 mg tablet 3.125 mg PO BID clopidogrel 75 MG tablet 75 mg PO DAILY Patient Comments: donepezil 5 MG tablet 5 mg PO QHS 0RF atorvastatin 10 mg Tablet 10 mg PO DAILY bisacodyl 5 mg Tablet 10 mg PO QHS Cosamin DS 500-400 mg Capsule 1 cap PO DAILY diclofenac sodium [Voltaren Arthritis Pain] 1 % Gel 1 ea TOPICAL 4X/DAY Anusol-HC 2.5 % Cream With Applicator 1 ea AL BID PRN PRN (Reason: Pain) clopidogrel [Plavix] 75 mg Tablet 75 mg PO DAILY Primary Care Provider: Natalee Spaulding Referrals: Natalee Spaulding MD [Primary Care Provider] - 1 Week if not improving Activity Restrictions/Additional Instructions: Continue ice and elevation of your right wrist when possible. [id number] analgesics like Tylenol as needed for pain. You may wear your splint for comfort and support, you may remove it for bathing and sleeping as needed. Disposition Disposition: Home, Self Care
[2023-01-09] MEDS: Acetaminophen 325 MG Tablet 650 MG PO (16:17)
--- NOTE | 2023-01-09 16:24 | RAD_ITS ---
STUDY: X-RAY - LEFT KNEE REASON FOR EXAM: Female, 87 years old. Trauma TECHNIQUE: 4 view(s) of the knee. COMPARISON: Left knee x-ray November 22, 2016 FINDINGS: There is demineralization of the visualized distal femur. There is demineralization of the tibia and fibula. There is mild arthrosis of the proximal tibiofibular articulation. There is slight lateral subluxation. Normal medial femorotibial compartment. Normal lateral femorotibial compartment. Normal patellofemoral articulation. There are atherosclerotic calcifications. RAD/Knee 4 or More Views IMPRESSION: Bony osteopenia. Mild degenerative change. No visualized acute fracture. Electronically Signed: Eli Powell MD at 17:01 EDT Reading Location ID and State: [facility] / [place] Tel , Service support ,
--- NOTE | 2023-01-09 16:24 | RAD_ITS ---
STUDY: X-RAY - RIGHT KNEE REASON FOR EXAM: Female, 87 years old. FALL -- -- PT FELL AT [facility] INJURING RIGHT WRIST AND B/L KNEES, DENIES HITTING HEAD/LOC TECHNIQUE: 4 view(s) of the knee. COMPARISON: Right femur December 28, 2022 x-ray which demonstrated a large joint effusion., Right knee x-ray November 05, 2019. FINDINGS: There is demineralization of the visualized distal femur. There is a suggestion of prior removal of hardware from the proximal tibia. Normal proximal tibiofibular articulation. There is moderate degenerative arthrosis of the medial femorotibial compartment with moderate joint space narrowing. There is severe degenerative change of the right lateral compartment with chronic narrowing and slight lateral subluxation and chronic remodeled appearance of the articular surface of the tibial articulation. When compared to prior study there is a persistent but lesser joint effusion. Normal patellofemoral articulation. There is a moderate volume joint effusion. Visualized soft tissue edema. RAD/Knee 4 or More Views IMPRESSION: Improved joint effusion since prior study December 28 2022. Interval worsening of the arthrosis of the lateral compartment since November 05, 2019. There is severe degenerative change of the right knee with chronic appearing remodeling of the lateral compartment of the right knee. If appropriate an MRI would be recommended for further evaluation. No visualized acute fracture. Electronically Signed: Eli Powell MD at 18:15 EDT ,
--- NOTE | 2023-01-09 16:24 | RAD_ITS ---
STUDY: X-RAY - RIGHT WRIST REASON FOR EXAM: Female, 87 years old. Trauma TECHNIQUE: 3 view(s) of the wrist were obtained. COMPARISON: Right hand x-ray November 22, 2016 FINDINGS: There is demineralization of the radius and ulna. There is degenerative arthrosis of the radiocarpal articulation. Normal distal radioulnar articulation. There is demineralization of the carpal bones. There is minimal degenerative arthrosis of the carpal articulations. Normal carpometacarpal articulation of the thumb. Normal second through fifth carpometacarpal articulations. Normal visualized metacarpal bones. The soft tissue structures are unremarkable. RAD/Wrist min 3 Views IMPRESSION: Stable wrist. No visualized acute fracture. Electronically Signed: Eli Powell MD at 17:08 EDT Reading Location ID and State: [facility] / [place] Tel , Service support ,
[2023-01-09 18:57] VITALS: PULSE 68; RESP 15; O2SAT 98
== END 2023-01-09 18:57 | disposition home or self-care (01) ==
PROVIDERS: Emergency Provider Emergency Medicine; PCP Internal Medicine; Visit Provider Emergency Medicine
DX: S60.211A Contusion of right wrist, initial encounter (principal); J44.9 Chronic obstructive pulmonary disease, unspecified; I50.22 Chronic systolic (congestive) heart failure; I11.0 Hypertensive heart disease with heart failure; E78.5 Hyperlipidemia, unspecified; I25.10 Atherosclerotic heart disease of native coronary artery without angina pectoris; M25.561 Pain in right knee; M25.562 Pain in left knee; S63.501A Unspecified sprain of right wrist, initial encounter; W01.10XA Fall on same level from slipping, tripping and stumbling with subsequent striking against unspecified object, initial encounter; Y92.510 Bank as the place of occurrence of the external cause; Z79.02 Long term (current) use of antithrombotics/antiplatelets; Z86.73 Personal history of transient ischemic attack (TIA), and cerebral infarction without residual deficits; Z79.899 Other long term (current) drug therapy; Z87.891 Personal history of nicotine dependence
CPT/HCPCS: 73110; 73564; 99283

== ENCOUNTER 2023-02-19 14:12 | Emergency (ER) | payer MEDICARE, SELFPAY ==
[2023-02-19 14:13] VITALS: BP 150/68; PULSE 92; RESP 14; TEMP 36.8; O2SAT 93; BMI 18.5
--- NOTE | 2023-02-19 14:22 | CT_ITS ---
STUDY: CT ABDOMEN AND PELVIS WITH CONTRAST REASON FOR EXAM: Female, 87 years old. llq pain. Rectal bleeding. RADIATION DOSAGE (If Supplied By Facility): CTDIvol = ( 13.35 ) mGy, DLP = ( 597.34 ) mGycm TECHNIQUE: Transaxial images were obtained from the dome of the diaphragm to the symphysis pubis without oral contrast. IV 100mL Isovue-300 was administered. Sagittal and coronal images were reconstructed. Individualized dose optimization techniques were used for this CT. COMPARISON: Comparison is made with prior study December 01, 2015. FINDINGS: The visualized lung bases are unremarkable. Coronary artery calcification. There is decreased attenuation of the liver consistent with steatosis. There are surgical clips in the gallbladder fossa consistent with a prior cholecystectomy. Mild degree of the biliary ductal dilatation. Normal spleen. There is diffuse atrophy of the pancreas. Normal bilateral adrenal glands. Normal right kidney. Normal left kidney. Normal visualized stomach. Normal small intestine. There are multiple colonic diverticula consistent with diverticulosis. The appendix is visualized and appears normal. There is diffuse atherosclerotic calcification of the abdominal aorta, without a demonstrated aneurysm. Normal inferior vena cava. Normal retroperitoneum. Nonspecific bladder wall thickening although the bladder is not completely distended at this time. There is absence of the uterus consistent with a prior hysterectomy. Normal abdominal wall. There are diffuse degenerative changes of the visualized lumbar spine. Dextroscoliosis. Grade 2 anterior listhesis of L4 on L5. Prior interpedicular screw fixation at the L4-L5 level. 50% loss of height of the L2 vertebrae. CT/Abdomen/Pelvis W IV Cont ONLY IMPRESSION: Sigmoid diverticulosis. Status post hysterectomy. Status post cholecystectomy. Fenestration of the liver and mild degree of intrahepatic biliary ductal dilatation. Electronically Signed: Francisco Hairston MD at 15:37 EST ,
--- NOTE | 2023-02-19 14:23 | ED.VIS.GI ---
HPI HPI - GI History of Present Illness Chief Complaint: GI Bleed Narrative Narrative: 87-year-old female past medical history of dementia, hypertension, TIAs on Plavix presents with 3 weeks of intermittent abdominal pain in the left lower quadrant and lower GI bleeding. She states intermittently she has had bright red blood per rectum, and today she has been having black stool. No fevers or chills, no nausea or vomiting. She saw her primary care provider and was sent in. She states that time she might feel lightheaded but denies any chest pain or shortness of breath. No prior abdominal surgeries. No exacerbating or alleviating factors. She lives at home alone, but one of her friends has been visiting her over the last 1 to 2 days. [facility] Medical History Abnormal ECG Atherosclerotic heart disease of [place] coronary artery without angina pectoris CAD (coronary artery disease) Cardiomyopathy Chronic systolic (congestive) heart failure Concussion COPD (chronic obstructive pulmonary disease) CVA (cerebral vascular accident) Debility Essential hypertension Fall HLD (hyperlipidemia) Right arm pain SDH (subdural hematoma) Seizure Stroke Home Medications clopidogrel 75 mg tablet 75 mg PO DAILY CLOTS 11/24/17 [History Last Taken 11/24/17] donepezil 5 mg tablet 5 mg PO QHS 12/02/17 [Rx Last Taken Unknown] hydralazine 10 mg tablet 10 mg PO 4X/DAY PRN SBP >160 06/26/18 [History Last Taken Unknown] amitriptyline 100 mg tablet 50 mg PO DAILY 12/28/18 [History Last Taken Unknown] carvedilol 3.125 mg tablet 3.125 mg PO BID 12/28/18 [History Last Taken Unknown] atorvastatin 10 mg tablet 10 mg PO DAILY 08/17/21 [History Last Taken Unknown] bisacodyl 5 mg tablet 10 mg PO QHS 08/17/21 [History Last Taken Unknown] diclofenac sodium 1 % topical gel (Voltaren Arthritis Pain) 1 ea topical 4X/DAY 08/17/21 [History Last Taken Unknown] ypvdwwqo-vamwuiphcs-uz glycn-C 500 mg-400 mg capsule 1 cap PO DAILY 08/17/21 [History Last Taken Unknown] hydrocortisone 2.5 % rectal cream with applicator 1 ea VT BID PRN PRN Pain 08/17/21 [History Last Taken Unknown] clopidogrel 75 mg tablet (Plavix) 75 mg PO DAILY 11/28/21 [History Last Taken Unknown] Allergy/AdvReac Type Severity Reaction Status Date / Time Sulfa (Sulfonamide Allergy Severe Hives Verified 01/09/23 16:05 Antibiotics) zolpidem [From Ambien] AdvReac Unknown Verified 01/09/23 16:05 Family History Father Myocardial infarction, Onset Age: 75 Surgical History History of left heart catheterization (LHC) (~05/23/06) History of spinal fusion Social History Smoking Status: Former smoker alcohol intake: current details: occasional ROS ROS ED ROS Narrative Constitutional: No fever, no chills. HEENT: No sore throat. No neck pain. No loss of vision. No rhinorrhea. Cardiovascular: No chest pain. No palpitations. No pedal edema. Respiratory: No cough, no shortness of breath. Abdominal: Left lower quadrant abdominal pain. No nausea. No vomiting. Positive rectal bleeding along with black stool. Genitourinary: No dysuria. No hematuria. Musculoskeletal: No myalgias. No arthralgias. Neurologic: No headaches. Intermittent lightheadedness and dizziness. Skin: No rash. No change in color. Psychiatric: No depression. No anxiety. EXAM Physical Exam Narrative Exam Narrative: Afebrile. Vital signs noted. HEENT: Normocephalic. Atraumatic. PERRL, EOMI. Neck soft and supple. No point tenderness or step off. Cardiovascular: Regular rate and rhythm. No murmurs, rubs, or gallops appreciated. Respiratory: No tachypnea. Lungs clear to auscultation bilaterally. Gastrointestinal: Abdomen soft, mild tenderness to palpation left lower quadrant, with normoactive bowel sounds. No rebound or guarding. Neurological: Awake. Alert. Nonfocal, nonlateralizing. Skin: No rash. Normal color. No pallor. No subconjunctival pallor. Musculoskeletal: No pedal edema. Full range of motion extremities. Const Vital Signs: 02/19/23 14:13 02/19/23 17:16 02/19/23 17:16 Temperature 98.2 F Temperature Source Temporal Pulse Rate 92 Respiratory Rate 14 16 16 Blood Pressure 150/68 H Blood Pressure Mean 95 Pulse Ox 93 96 Oxygen Delivery Method Room Air MDM MDM MDM Narrative Medical decision making narrative: Concern is for diverticular bleed versus AV malformation. Although she complains of tarry stool I have low suspicion for brisk bleeding ulcer as the history and physical does not support this and she has had intermittent bleeding over the last 3 weeks. Comprehensive work-up was pursued. I do feel CT imaging is indicated to look for diverticulitis. EKG obtained and interpreted by myself independently as normal sinus rhythm at 81 bpm without ectopy or acute ST changes. No STEMI. I reviewed her laboratory work from today and its grossly unremarkable with a CBC demonstrating normal white count of 7.2, hemoglobin normal at 12.6, hematocrit 41.1, and platelet count normal at 295. Electrolyte panel shows chloride slightly elevated at 108 which I think is nonspecific, BUN of 22 and creatinine of 1.03. Glucose is appropriately elevated at 123 with a low anion gap of 3, no concern for diabetic ketoacidosis. Chaperoned rectal examination did not reveal any gross hemorrhage, and normal colored stool. This was sent for occult blood which was reviewed and is negative as well. CT of the abdomen and pelvis was obtained and radiology report was reviewed which demonstrates sigmoid diverticulosis but no evidence of diverticulitis. There is no reason for her left lower quadrant pain on CT examination. Patient was unable to provide a urine sample, however without inflammation or obstruction of the renal collecting system noted on exam, I do not feel this is as important or cause of her left lower quadrant pain. She states she would like to be discharged. I do not feel she requires admission for reported GI bleed and dark stool as her Hemoccult was negative, she has a normal hemoglobin, and there is no gross blood on examination. She can follow-up with her primary care provider, and gastroenterology as an outpatient. Her friend is comfortable taking her home, stating that she will be with her for the next week. Disposition is discharged home in stable condition. History & Record Review Discussion w/independent historian: Patient and Friend Additional record(s) reviewed:: Prior ED visit Lab Data Attestation: I reviewed the patient's lab results. Labs: Laboratory Results - last 24 hr 02/19/23 14:34 WBC 7.2 RBC 4.76 Hgb 12.6 Hct 41.1 MCV 86.3 MCH 26.5 L MCHC 30.7 L RDW Std Deviation 44.1 H RDW Coeff of Karine 13.9 Plt Count 295 MPV 9.9 Immature Gran % (Auto) 0.300 Neut % (Auto) 66.6 Lymph % (Auto) 23.1 [place] % (Auto) 7.5 Eos % (Auto) 1.9 Baso % (Auto) 0.6 Absolute Neuts (auto) 4.8 Absolute Lymphs (auto) 1.66 Nucleated RBC % 0 Sodium 143 Potassium 3.9 Chloride 108 H Carbon Dioxide 32.0 Anion Gap 3 L BUN 22 H Creatinine 1.03 H Estim Creat Clear Calc 35.81 Est GFR (MDRD) Af Amer 66 Est GFR (MDRD) Non-Af 54 L BUN/Creatinine Ratio 21.4 H Glucose 123 H Calcium 8.9 Total Bilirubin 0.30 AST 16 ALT 14 Alkaline Phosphatase 110 Total Protein 6.5 Albumin 3.5 Globulin 3.0 Albumin/Globulin Ratio 1.2 Lipase 18 Radiography Diagnostic Testing: Clinical Impression(s) from Imaging Studies Abdomen/Pelvis CT 02/19/23 14:22 IMPRESSION: Sigmoid diverticulosis. Status post hysterectomy. Status post cholecystectomy. Fenestration of the liver and mild degree of intrahepatic biliary ductal dilatation. Electronically Signed: Francisco Hairston MD at 15:37 EST Reading Location ID and State: [address] [place] [address] , Service support , Discharge Plan Triage Chief Complaint: GI Bleed ED Provider: Ulises Penaloza Dx/Rx/DC Orders Clinical Impression: Abdominal pain, LLQ, Dark stools Instructions: ED Abdominal Pain Unkn Cause Fem Prescriptions: No Action hydralazine 10 mg tablet 10 mg PO 4X/DAY PRN (Reason: SBP >160) amitriptyline 100 mg tablet 50 mg PO DAILY carvedilol 3.125 mg tablet 3.125 mg PO BID clopidogrel 75 MG tablet 75 mg PO DAILY Patient Comments: donepezil 5 MG tablet 5 mg PO QHS 0RF atorvastatin 10 mg Tablet 10 mg PO DAILY bisacodyl 5 mg Tablet 10 mg PO QHS Cosamin DS 500-400 mg Capsule 1 cap PO DAILY diclofenac sodium [Voltaren Arthritis Pain] 1 % Gel 1 ea TOPICAL 4X/DAY Anusol-HC 2.5 % Cream With Applicator 1 ea VT BID PRN PRN (Reason: Pain) clopidogrel [Plavix] 75 mg Tablet 75 mg PO DAILY Primary Care Provider: Natalee Spaulding Referrals: Natalee Spaulding MD [Primary Care Provider] - 3-5 Days if not improving Disposition Disposition: Home, Self Care Discharge Date/Time: 02/19/23 17:18
[2023-02-19] MEDS: 0.9% Normal Saline (1000mL) 1,000 ML 1000 ML IV (14:34)
[2023-02-19 14:43] LABS: Absolute Lymphocyte Count 1.66 X10^3/uL (0.83-4.51); Absolute Neutrophil Count 4.8 X10^3/uL (2.0-7.7); Basophil# 0.04 X10^3/uL; Basophil% 0.6 % (0-1); Eosinophil# 0.14 X10^3/uL; Eosinophils% 1.9 % (0-5); Hematocrit 41.1 % (37-47); Hemoglobin 12.6 g/dL (12.0-15.0); Lymphocyte # 1.66 X10^3/ul (0.83-4.51); Lymphocyte % 23.1 % (19-41); Mean Corp Hgb Conc 30.7 g/dL (32-36); Mean Corpuscular Hgb 26.5 pg (27.0-32.0); Mean Corpuscular Volume 86.3 fL (81-99); Mean Platelet Vol. 9.9 fl (6.2-12.0); Monocyte# 0.54 X10^3/uL; Monocyte% 7.5 % (0-10); NRBC Flagged by Analyzer 0 % (0-5); Neutrophil % 66.6 % (47-70); Platelet Count 295 K/mm3 (150-450); RBC Distribution Width CV 13.9 % (11.6-14.6); RBC Distribution Width SD 44.1 fl (35.1-43.9); Red Blood Count 4.76 M/mm3 (4.2-5.4); White Blood Count 7.2 K/mm3 (4.4-11.0)
[2023-02-19 14:57] LABS: ALB/GLOB Ratio 1.2 RATIO (0.9-2.4); AST(SGOT) 16 U/L (15-37); Alanine Aminotransfer ALT/SGPT 14 U/L (13-56); Albumin, Serum 3.5 g/dL (3.2-5.0); Alkaline Phosphatase 110 U/L (45-117); Anion Gap 3 (5-15); BUN 22 mg/dL (7-18); BUN/Creat Ratio 21.4 RATIO (10-20); Calcium,Total 8.9 mg/dL (8.5-10.1); Chloride 108 mmol/L (98-107); Creatinine, Serum 1.03 mg/dL (0.55-1.02); EST Glomerular Filtration Rate 54 mL/min (>60); Est Glom Filt Rate - Afr Amer 66 mL/min (>60); Estimated Creatinine Clearance 35.81 ml/min; Glucose 123 mg/dL (74-106); Lipase 18 U/L (13-75); Potassium 3.9 mmol/L (3.5-5.1); Protein, Total 6.5 g/dL (6.4-8.2); Sodium Level 143 mmol/L (136-145)
[2023-02-19 17:16] VITALS: RESP 16; O2SAT 96
== END 2023-02-19 17:18 | disposition home or self-care (01) ==
PROVIDERS: Emergency Provider Emergency Medicine; PCP Internal Medicine; Referring Provider Emergency Medicine; Visit Provider Emergency Medicine
DX: R10.32 Left lower quadrant pain (principal); J44.9 Chronic obstructive pulmonary disease, unspecified; I11.0 Hypertensive heart disease with heart failure; I50.22 Chronic systolic (congestive) heart failure; I25.10 Atherosclerotic heart disease of native coronary artery without angina pectoris; Z87.891 Personal history of nicotine dependence; E78.5 Hyperlipidemia, unspecified; Z86.73 Personal history of transient ischemic attack (TIA), and cerebral infarction without residual deficits; Z79.02 Long term (current) use of antithrombotics/antiplatelets; Z79.899 Other long term (current) drug therapy; R19.5 Other fecal abnormalities
CPT/HCPCS: 74177; 80053; 82274; 83690; 85025; 93005; 96360; 96361; 99283; J7030; Q9967; A4216

== ENCOUNTER 2023-08-16 06:43 | Inpatient (IN) | payer MEDICARE, SELFPAY ==
[2023-08-16] VITALS (8 sets, daily range): BP systolic 101–167; BP diastolic 58–114; PULSE 64–77; RESP 14–22; TEMP 36.4–36.8; O2SAT 95–100; BMI 19.3; BMI 17.8
--- NOTE | 2023-08-16 07:02 | ED.RN ---
Called Casey See at
--- NOTE | 2023-08-16 07:45 | NURSING ---
08/16/23@0745- SON STATED THIS IS THE THIRD TIME PT HAS BEEN DRIVING IN THE MIDDLE OF THE NIGHT CONFUSED AND LOSS. PTS MIND HAS BEEN SLIPPING FOR MONTHS. PT WAITING TO GET INTO [facility] AND WAS TOLD IN MARCH IT WOULD BE TWO MONTHS AND PT IS STILL CURRENTLY LIVING AT HOME ALONE. PT ALSO GOES ON WALKS BY HERSELF AND HAS FALLEN TWICE AND HAS HIT HER HEAD. THIS NURSE EDUCATED FAMILY THAT PT SHOULD NOT BE DRIVING DUE TO THE DANGER IT WOULD IMPOSE ON THE PT AND OTHER DRIVERS ON THE ROAD. SON STATED PT WILL NOT BE DRIVING ANYMORE, I'LL BE TAKING HER KEYS AND THAT HIS BROTHER CURRENTLY HAS HER CAR.
--- NOTE | 2023-08-16 07:52 | EKG12_ITS ---
Test Reason : Blood Pressure : / mmHG Vent. Rate : 080 BPM Atrial Rate : 080 BPM P-R Int : 202 ms QRS Dur : 092 ms QT Int : 408 ms P-R-T Axes : 064 002 067 degrees QTc Int : 470 ms Normal sinus rhythm Normal ECG Confirmed by ISAIAH LIM MD ([id number]), editor trade journal MARGARET PACHECO ([id number]) on 08/18/2023 6:52:48 AM Referred By: Confirmed By:ISAIAH LIM MD
--- NOTE | 2023-08-16 07:57 | CT_ITS ---
HISTORY: AMS. TECHNIQUE: Multiple axial images were obtained of the head without intravenous contrast. A radiation dose optimization technique was used for this scan. 233 images. COMPARISON: 12/28/2022. FINDINGS: BRAIN PARENCHYMA: Mild zone of low attenuation in the right frontal lobe inferiorly adjacent to a 2.4 x 2.7 cm anterior cranial fossa mass with adjacent hyperostosis of the planum sphenoidale. Multiple foci and zones of low attenuation in the bilateral cerebral white matter compatible with chronic small vessel ischemic gliosis. No acute intra-axial hemorrhage identified. CSF SPACES: Generalized volume loss. No midline shift or other significant mass effect. No acute extra-axial hemorrhage seen. OTHER: Intact calvarium. No significant air fluid levels in the paranasal sinuses. Chronic mastoidectomies. Bilateral lens resections. 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 Recommend correlation with MRI without and with contrast to assess for meningioma or other neoplasm. Adjacent edema or infarction of the right inferior frontal lobe. No acute intracranial hemorrhage identified. Chronic involutional and white matter changes. Electronically Signed: Radha Ayala MD at 9:38 EDT ,
--- NOTE | 2023-08-16 08:08 | EDS_ITS ---
HPI History of Present Illness Chief Complaint: Alt LOC Narrative Narrative: 87-year-old female with a history of dementia brought in by Gin HERNANDEZ for confusion. Apparently the patient was driving her car around and got lost. She stopped next to a police aide in the parking lot of a [employer] and was confused so he had her brought to the emergency room. Apparently she has a history of this. Her son did come to the ER. He states that she has done this 2 other times. He states he was supposed to take the car away but he only took the keys. Is not clear how the patient was able to drive the car or if she had a spare set of keys. He states that he is going to take the car away now. Patient does not have any complaints although she is very confused but son is here and he states she has baseline. She does have history of falls distantly but has not fallen recently that the son is aware of. He states that he and his sister are trying to get her into an assisted living at [facility] as this is where she wants to go. They have been working with the facility and she is on a waiting list. The patient does live home alone. They have explored options for home health care but the son states is very expensive. [facility] Medical History Chronic systolic (congestive) heart failure Seizure CVA (cerebral vascular accident) Atherosclerotic heart disease of [place] coronary artery without angina pectoris Essential hypertension Concussion Fall SDH (subdural hematoma) Debility Right arm pain Stroke Cardiomyopathy HLD (hyperlipidemia) CAD (coronary artery disease) Abnormal ECG COPD (chronic obstructive pulmonary disease) Home Medications ?Medication ?Instructions ?Recorded ?Last Taken ?Type donepezil 5 mg tablet 5 mg PO QHS 12/02/17 Unknown Rx carvedilol 3.125 mg tablet 3.125 mg PO BID 12/28/18 Unknown History atorvastatin 10 mg tablet 10 mg PO DAILY 08/17/21 Unknown History bisacodyl 5 mg tablet 10 mg PO QHS 08/17/21 Unknown History diclofenac sodium 1 % topical gel 1 ea topical 4X/DAY 08/17/21 Unknown History (Voltaren Arthritis Pain) clopidogrel 75 mg tablet (Plavix) 75 mg PO DAILY 11/28/21 Unknown History amitriptyline 50 mg tablet 50 mg PO DAILY 08/16/23 Unknown History famotidine 40 mg tablet 40 mg PO DAILY 08/16/23 Unknown History ipratropium bromide 42 mcg (0.06 2 spray intranasal 4X/DAY PRN PRN 08/16/23 Unknown History %) nasal spray allergy symptoms levocetirizine 5 mg tablet 5 mg PO DAILY 08/16/23 Unknown History pantoprazole 40 mg tablet,delayed 40 mg PO DAILY 08/16/23 Unknown History release Allergy/AdvReac Type Severity Reaction Status Date / Time Sulfa (Sulfonamide Allergy Severe Hives Verified 08/16/23 07:41 Antibiotics) zolpidem (From Ambien) AdvReac Unknown Verified 08/16/23 07:41 Family History Father Myocardial infarction, Onset Age: 75 Surgical History History of spinal fusion History of left heart catheterization (LHC) (~05/23/06) Social History (Updated 08/16/23 @ 11:08 by Kajal Wright) housing: house Smoking Status: Former smoker alcohol intake: current details: occasional ROS ROS ED Constitutional Constitutional ED: Denies chills, fever(s) or sweats Eyes Eyes: Denies blurry vision or change in vision ENT ENT ED: Denies ear pain or sore throat Cardiovascular Cardiovascular: Denies chest pain, palpitations or racing heartbeat Respiratory/Chest Respiratory/Chest: Denies cough, dyspnea or sputum Gastrointestinal Gastrointestinal: Denies abdominal pain, constipation, diarrhea, nausea or vo miting Genitourinary Genitourinary ED: Denies dysuria, hematuria or urinary frequency Musculoskeletal Musculoskeletal: Denies arthralgias, myalgias or neck pain Integumentary Denies abscess, Abrasions or rash Neurologic Neurologic: Denies headache(s), paresthesias or weakness Psychiatric Psychiatric: Denies anxiety, depression, suicidal ideation or suicidal thoughts Endocrine Endocrinology: Denies polydipsia or polyuria EXAM Physical Exam Const Vital Signs: 08/16/23 06:45 08/16/23 08:44 08/16/23 10:00 Temperature 98.1 F Temperature Source Oral Pulse Rate 64 73 72 Respiratory Rate 16 19 H 19 H Blood Pressure 164/114 H 157/89 H 167/89 H Blood Pressure Mean 130 111 115 Pulse Ox 98 97 97 Oxygen Delivery Method Room Air Room Air Room Air MDM MDM MDM Narrative Medical decision making narrative: After discussion with the son it sounds like she has done this in the past. She does have history of falls as well. He would like her checked out because he is concerned she might be dehydrated and might of fallen and hit her head as she is done this in the past. Has a history of subdural hematoma. Patient has no evidence of trauma to the scalp. She does not have any complaints. Differential includes dementia, dehydration, anemia, subdural hematoma, pneumonia, UTI, ACS. CBC to assess white blood cell count, hemoglobin, platelets. CMP to assess liver function, renal function, electrolytes. High- sensitivity troponin EKG to assess for ischemia/dysrhythmia. Chest x-ray to rule out pneumonia. CT brain rule intracranial abnormalities. Urinalysis to assess for UTI. CBC shows normal white blood cell count of 5.4. Hemoglobin 12.3. Platelets are normal at 294. Creatinine slightly elevated 1.11. Electrolytes are normal. LFTs are normal. High-sensitivity troponin is 16. EKG interpreted by myself shows a sinus rhythm at [address] of the brain is read as abnormal. She has a 2.7 cm anterior cranial fossa anterior skull base mass. Differential is meningioma or other neoplasm. There is also an adjacent edema and/ or infarct in the inferior right frontal lobe. Discussed at length with the patient's daughter. She does not think she would have any kind of intervention. She recommends that we do not send her somewhere for neurosurgery consult as she does not think she would go through with surgery. She just wants supportive care for now. She is willing to have the patient admitted to have an MRI to better elucidate the brain. She does however want her to come home back to her house where they can monitor her. They will try to get her into a half-way on their own after the admission. Impression: 1. Brain mass Lab Data Labs: Laboratory Results - last 24 hr 08/16/23 08:10 WBC 5.4 RBC 4.71 Hgb 12.3 Hct 40.6 MCV 86.2 MCH 26.1 L MCHC 30.3 L RDW Std Deviation 42.5 RDW Coeff of Karine 13.7 Plt Count 294 MPV 10.0 Immature Gran % (Auto) 0.400 Neut % (Auto) 62.7 Lymph % (Auto) 27.0 [place] % (Auto) 7.6 Eos % (Auto) 1.7 Baso % (Auto) 0.6 Absolute Neuts (auto) 3.4 Absolute Lymphs (auto) 1.46 Nucleated RBC % 0 Sodium 140 Potassium 3.9 Chloride 107 Carbon Dioxide 28.0 Anion Gap 5 BUN 22 H Creatinine 1.11 H Estim Creat Clear Calc 34.75 Est GFR (MDRD) Af Amer 60 Est GFR (MDRD) Non-Af 50 L BUN/Creatinine Ratio 19.8 Glucose 99 Calcium 9.8 Total Bilirubin 0.50 AST 15 ALT 12 L Alkaline Phosphatase 73 Troponin I High Sens 16 Total Protein 7.1 Albumin 3.9 Globulin 3.2 Albumin/Globulin Ratio 1.2 Radiography Diagnostic Testing: Clinical Impression(s) from Imaging Studies Brain CT 08/16/23 07:57 IMPRESSION: 2.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 Recommend correlation with MRI without and with contrast to assess for meningioma or other neoplasm. Adjacent edema or infarction of the right inferior frontal lobe. No acute intracranial hemorrhage identified. Chronic involutional and white matter changes. Electronically Signed: Radha Ayala MD at 9:38 EDT , Chest X-Ray 08/16/23 09:07 IMPRESSION: Mild bibasilar atelectasis and scarring. Electronically Signed: Radha Ayala MD at 9:21 EDT , Discharge Plan Disposition Disposition: Acute Care Hospital [facility] Discharge Date/Time: 08/16/23 10:45
--- NOTE | 2023-08-16 08:26 | NURSING ---
08/16/23@ 0820- SPOKE WITH PTS DAUGHTER BALWINDER VILLAFANA. BALWINDER STATED I'VE BEEN IN CONTACT WITH APS THE AGENTS NAME IS LEDY SUE AND NUMBER IS #[phone]. PT HAS DENIED HHC DUE TO WANTING TO BE ALONE AND NOT HAVE STRANGERS IN HER HOME. APS AGENT ADVISED THE DAUGHTER TO FILE FOR EMERGENCY GUARDIANSHIP NOT POA. ALL PAPERWORK HAS BEEN SUBMITTED WE ARE JUST WAITING ON THE CONCRETE PLANT LABORER TO SIGN OFF. PT HAS BEEN WAITING SINCE END OF APR 2023 TO GET INTO [facility] BUT IS STILL WAITING. I'D LIKE MY MOM TO BE ADMITTED SO WE CAN GET HER INTO ANYWHERE FAST BECAUSE WE CAN'T TAKE HER HOME AND SHE CANNOT LIVE ALONE. DAUGHTER FLEW IN FROM [place] LAST MONTH PER APS AGENT RECOMMENDATION AND GOT ALL THE PTS BILLS ORGANIZED. DR. FORMAN NOTIFIED. HOSPITALIST PAGED. DAUGHTER AND SON UPDATED.
--- NOTE | 2023-08-16 08:31 | NURSING ---
DR BURR FOR DR FORMAN
[2023-08-16 08:38] LABS: Absolute Lymphocyte Count 1.46 X10^3/uL (0.83-4.51); Absolute Neutrophil Count 3.4 X10^3/uL (2.0-7.7); Basophil# 0.03 X10^3/uL; Basophil% 0.6 % (0-1); Eosinophil# 0.09 X10^3/uL; Eosinophils% 1.7 % (0-5); Hematocrit 40.6 % (37-47); Hemoglobin 12.3 g/dL (12.0-15.0); Lymphocyte # 1.46 X10^3/ul (0.83-4.51); Mean Corp Hgb Conc 30.3 g/dL (32-36); Mean Corpuscular Hgb 26.1 pg (27.0-32.0); Mean Corpuscular Volume 86.2 fL (81-99); Monocyte# 0.41 X10^3/uL; Monocyte% 7.6 % (0-10); NRBC Flagged by Analyzer 0 % (0-5); Neutrophil # 3.39 X10^3/uL (2.7-7.7); Neutrophil % 62.7 % (47-70); Platelet Count 294 K/mm3 (150-450); RBC Distribution Width CV 13.7 % (11.6-14.6); RBC Distribution Width SD 42.5 fl (35.1-43.9); Red Blood Count 4.71 M/mm3 (4.2-5.4); White Blood Count 5.4 K/mm3 (4.4-11.0)
[2023-08-16 08:47] LABS: ALB/GLOB Ratio 1.2 RATIO (0.9-2.4); AST(SGOT) 15 U/L (15-37); Alanine Aminotransfer ALT/SGPT 12 U/L (13-56); Albumin, Serum 3.9 g/dL (3.2-5.0); Alkaline Phosphatase 73 U/L (45-117); Anion Gap 5 (5-15); BUN 22 mg/dL (7-18); BUN/Creat Ratio 19.8 RATIO (10-20); Calcium,Total 9.8 mg/dL (8.5-10.1); Chloride 107 mmol/L (98-107); Creatinine, Serum 1.11 mg/dL (0.55-1.02); EST Glomerular Filtration Rate 50 mL/min (>60); Est Glom Filt Rate - Afr Amer 60 mL/min (>60); Estimated Creatinine Clearance 34.75 ml/min; Globulin 3.2 g/dL (2.2-4.2); Glucose 99 mg/dL (74-106); Potassium 3.9 mmol/L (3.5-5.1); Protein, Total 7.1 g/dL (6.4-8.2); Sodium Level 140 mmol/L (136-145); Troponin-I HS (w/2H Reflex) 16 pg/mL (3.0-54.0)
--- NOTE | 2023-08-16 09:07 | RAD_ITS ---
HISTORY: altered mental status. TECHNIQUE: XR Chest 1 View. COMPARISON: 08/17/2021. FINDINGS: CARDIOMEDIASTINAL BORDERS: Cardiac silhouette within normal limits in size. Mediastinal contour unchanged with tortuosity calcification of the aorta. LUNGS: Mild atelectasis and scarring in the lung bases. PLEURA: No pleural effusion or pneumothorax seen. OSSEOUS STRUCTURES: Scoliosis and degenerative change. Old fracture of the right humerus with severe arthritis of the shoulder. RAD/Chest 1 View (Portable) IMPRESSION: Mild bibasilar atelectasis and scarring. Electronically Signed: Radha Ayala MD at 9:21 EDT ,
--- NOTE | 2023-08-16 10:13 | NURSING ---
DR BURR FOR DR FORMAN
--- NOTE | 2023-08-16 10:14 | HP.PCM.HOS_ITS ---
HPI - General General Date of Admission: 08/16/23 Date of Service: 08/16/23 Chief Complaint: Altered mentation with new brain mass HPI Narrative MARINA ESPINO, is a 87 F who presented to [facility] ED on 08/16/2023 with altered mentation. Per ED staff, patient was brought in by [facility] for confusion. She was apparently driving her car around and got lost, and was stopped next to a police car in the parking lot of a [employer] so the police had her brought in for evaluation. Son and daughter were at bedside in the ED to help provide further history. They note that patient lives alone and has a diagnosis of dementia, and she has done this 2 other times. They had talked about taking her car keys away prior to this episode. They noted that they have been working on trying to get her into the assisted living part of [facility] since March but she remains on the waiting list. Patient was hemodynamically stable in the ED and making appropriate eye contact but not answering questions appropriately. Per son and daughter, this is her baseline. On further workup in the ED, CT brain without contrast showed a 2.7 cm anterior cranial fossa mass concerning for meningioma versus other neoplasm as well as adjacent edema or infarction of the right inferior frontal lobe. Patient notably had no other neurologic deficits noted on exam in the ED. Lab workup was otherwise benign. ED physician discussed with son and daughter about management for this mass. They noted that they wanted to be conservative with management and had no interest in any neurosurgical procedures for the patient. They were agreeable to admission here with plan for MRI brain with and without contrast as well as teleneurology consult and therapy evaluations. Hospitalist was then contacted for admission. I saw the patient at the bedside on the floor shortly after arriving over from the ED. Son was present but daughter had left. Patient at that time was sitting up comfortably in bed in no acute distress. She was making appropriate eye contact for me and tried to answer questions for me but did not have a proper responses. She denied being in any acute pain or discomfort. No other acute concerns at this time. [facility] Medical History Chronic systolic (congestive) heart failure Seizure CVA (cerebral vascular accident) Atherosclerotic heart disease of [place] coronary artery without angina pectoris Essential hypertension Concussion Fall SDH (subdural hematoma) Debility Right arm pain Stroke Cardiomyopathy HLD (hyperlipidemia) CAD (coronary artery disease) Abnormal ECG COPD (chronic obstructive pulmonary disease) Home Medications ?Medication ?Instructions ?Recorded ?Last Taken ?Type donepezil 5 mg tablet 5 mg PO QHS 12/02/17 Unknown Rx carvedilol 3.125 mg tablet 3.125 mg PO BID 12/28/18 Unknown History atorvastatin 10 mg tablet 10 mg PO DAILY 08/17/21 Unknown History bisacodyl 5 mg tablet 10 mg PO QHS 08/17/21 Unknown History diclofenac sodium 1 % topical gel 1 ea topical 4X/DAY 08/17/21 Unknown History (Voltaren Arthritis Pain) clopidogrel 75 mg tablet (Plavix) 75 mg PO DAILY 11/28/21 Unknown History amitriptyline 50 mg tablet 50 mg PO DAILY 08/16/23 Unknown History famotidine 40 mg tablet 40 mg PO DAILY 08/16/23 Unknown History ipratropium bromide 42 mcg (0.06 2 spray intranasal 4X/DAY PRN PRN 08/16/23 Unknown History %) nasal spray allergy symptoms levocetirizine 5 mg tablet 5 mg PO DAILY 08/16/23 Unknown History pantoprazole 40 mg tablet,delayed 40 mg PO DAILY 08/16/23 Unknown History release Allergy/AdvReac Type Severity Reaction Status Date / Time Sulfa (Sulfonamide Allergy Severe Hives Verified 08/16/23 07:41 Antibiotics) zolpidem (From Ambien) AdvReac Unknown Verified 08/16/23 07:41 Family History Father Myocardial infarction, Onset Age: 75 Surgical History History of spinal fusion History of left heart catheterization (LHC) (~05/23/06) Social History (Updated 08/16/23 @ 11:08 by Kajal Wright) housing: house Smoking Status: Former smoker alcohol intake: current details: occasional ROS Review of Systems ROS Unobtainable: due to mental condition Vital Signs Vital Signs Vital Signs: 08/16/23 06:45 08/16/23 08:44 Temperature 98.1 F Temperature Source Oral Pulse Rate 64 73 Respiratory Rate 16 19 H Blood Pressure 164/114 H 157/89 H Blood Pressure Mean 130 111 Pulse Ox 98 97 Oxygen Delivery Method Room Air Room Air Weight Weight: 59.4 kg Body Mass Index (BMI) 19.3 Physical Exam Const alert and no apparent distress Constitutional Narrative: Elderly female, thin and somewhat cachectic appearing, sitting up comfortably in bed, making appropriate eye contact but not answering questions appropriately due to dementia, in no acute distress. General Appearance: cooperative and comfortable HEENT normocephalic, head/scalp atraumatic, hearing grossly normal bilaterally and nasal mucous membranes and turbinates normal Eyes PERRL, EOMs intact bilaterally and conjunctivae normal Neck full ROM Chest inspection of chest normal Resp normal respiratory effort, normal air movement, no use of accessory muscles and clear to auscultation bilaterally Cardio regular rate, regular rhythm, no murmurs and peripheral pulses 2+ throughout GI normal to inspection, nondistended, normoactive bowel sounds, soft to palpation, non-tender and non-distended Back/Spine normal ROM Extremity normal to inspection and no pedal edema Skin no rashes or lesions noted Neuro moves all extremities and no focal motor deficits Results Lab / Micro Data 08/16/23 08:10 08/16/23 08:10 Labs: Laboratory Results - last 24 hr 08/16/23 08:10: WBC 5.4, RBC 4.71, Hgb 12.3, Hct 40.6, MCV 86.2, MCH 26.1 L, M CHC 30.3 L, RDW Std Deviation 42.5, RDW Coeff of Karine 13.7, Plt Count 294, MPV 10.0, Immature Gran % (Auto) 0.400, Neut % (Auto) 62.7, Lymph % (Auto) 27.0, [place] % (Auto) 7.6, Eos % (Auto) 1.7, Baso % (Auto) 0.6, Absolute Neuts (auto) 3.4, Absolute Lymphs (auto) 1.46, Nucleated RBC % 0, Sodium 140, Potassium 3.9, Chloride 107, Carbon Dioxide 28.0, Anion Gap 5, BUN 22 H, Creatinine 1.11 H, Estim Creat Clear Calc 34.75, Est GFR (MDRD) Af Amer 60, Est GFR (MDRD) Non-Af 50 L, BUN/Creatinine Ratio 19.8, Glucose 99, Calcium 9.8, Total Bilirubin 0.50, AST 15, ALT 12 L, Alkaline Phosphatase 73, Troponin I High Sens 16, Total Protein 7.1, Albumin 3.9, Globulin 3.2, Albumin/Globulin Ratio 1.2 Imaging Radiology Impression Brain CT 08/16/23 07:57 IMPRESSION: 2.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 Recommend correlation with MRI without and with contrast to assess for meningioma or other neoplasm. Adjacent edema or infarction of the right inferior frontal lobe. No acute intracranial hemorrhage identified. Chronic involutional and white matter changes. Electronically Signed: Radha Ayala MD at 9:38 EDT , Chest X-Ray 08/16/23 09:07 IMPRESSION: Mild bibasilar atelectasis and scarring. Electronically Signed: Radha Ayala MD at 9:21 EDT , Assessment & Plan Assessment/Plan (1) Dementia: (2) Brain mass: (3) Debility: PLAN: Plan Patient is an 87-year-old female who presented [facility] ED on 08/16/2023 with altered mentation. 1. Concern for altered mentation versus worsening dementia; new brain mass Presentation seems more consistent with worsening dementia rather than acute altered mentation. CT brain without contrast on admit showed a 2.7 cm anterior cranial fossa/skull base mass with adjacent edema or infarction of right inferior frontal lobe. 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 Patient hemodynamically stable and labs unremarkable on admission. ? Admit under inpatient status to PCU. Neurology evaluated on day of admission. Noted that mass is probably a meningioma and typically this would be referred to neurosurgery; however, this meningioma is responsible for dementia and resecting it would likely accelerate the dementia process. Recommended against any surgical evaluation and daughter was in agreement with this. Neurology noted that patient is not safe to live independently without assistance and will need guardianship. Case management consulted for assistance. Avoid sedating medications as able. 2. Debility ? PT/OT/case management consulted. Suspect patient is about at her baseline but has had worsening weakness and debility over the past weeks to months suspected due to worsening dementia as noted above. 3. Suspected malnutrition ? Nutrition consulted. BMI 17 on admit. Suspected malnutrition secondary to poor p.o. intake in setting of dementia as noted above. Chronic medical conditions: ? History of heart failure with recovered ejection fraction with nonischemic cardiomyopathy, hypertension, hyperlipidemia: Stable. Continue home Coreg and statin. Holding home Plavix for now given new brain mass as noted above. ? History of fall with subdural hematoma ? GERD: Continue home PPI. ? Allergies: Continue home cetirizine. DVT prophylaxis: SCDs CODE STATUS: DNR CCA, DNI Expected disposition: TBD Total clinical time spent by myself addressing the patient's medical issues, reviewing all the data, and collaborating with patient's care team: 55 minutes. Charges/Coding Visit Charges Inpatient E&M: 60055 Init Hosp L2
--- NOTE | 2023-08-16 10:20 | MRI_ITS ---
HISTORY: new brain mass, CONFUSION, SLURRED SPEACH, CT AND PREVIOUS MRI. TECHNIQUE: Multiplanar and multisequence MR images of the brain were obtained before and after the intravenous administration of contrast. 969 images. COMPARISON: CT same day, MRI 11/25/2017. FINDINGS: BRAIN PARENCHYMA: New vasogenic edema in the right inferior frontal lobe Chronic white matter changes. No abnormal focus of restricted diffusion. No acute intracranial hemorrhage identified. CSF SPACES: 1.9 x 2.8 x 3 cm dural based and lobulated enhancing isointense extra-axial mass with partial calcification and hyperostosis inferiorly extending superiorly from the planum sphenoidale with mass effect on the inferior frontal lobes. Mass abuts the prechiasmatic optic nerves without deviation of the optic chiasm or invasion of the cavernous sinus. No midline shift or effacement of the basal cisterns. Chronic volume loss. No extra-axial fluid collection. VASCULAR SYSTEM: Major intracranial flow voids are maintained. PARANASAL SINUSES AND MASTOID AIR CELLS: No significant air fluid levels. ORBITS: Symmetric contents. Bilateral lens resections. MRI/Brain W/WO Contrast IMPRESSION: 3 cm enhancing extra-axial mass arising from the planum sphenoidale, compatible with a skull base meningioma. Dural-based metastasis could have a similar appearance. Vasogenic edema of the adjacent right inferior frontal lobe. No evidence for acute infarct. Chronic involutional and white matter changes. Electronically Signed: Radha Ayala MD at 12:57 EDT ,
--- NOTE | 2023-08-16 10:23 | NURSING ---
PCU OBS MOSTELLER BRAIN MASS
[2023-08-16 10:25] LABS: Reflex Troponin-HS? (from REC) Y
[2023-08-16 11:10] LABS: Troponin-I HS 18 pg/mL (3.0-54.0)
--- NOTE | 2023-08-16 13:23 | CON.PCM.NE_ITS ---
Assessment and Plan: Neuro Assessment/Plan MARINA ESPINO is a 87 yo woman with h/o SDH, COPD, CAD, CHF, HLD, SDH and dementia being evaluated by teleneurology for skull base mass. Her intracranial mass is probably a meningioma. I would typically recommend referral to neurosurgery for a mass of this size, and explained this to both patient (to which she did not respond) and daughter. I do not believe this meningioma is responsible for her dementia. Resecting it would not only not cure her dementia but likely accelerate the process, as an anesthesia event plus recovery is likely to put extreme stress on her cognitive reserve. While referral to Neurosurgery is a possibility I do not recommend it here. Daughter does not desire referral, which is reasonable. Patient is not safe to live independently without assistance and I do believe she needs guardianship. Diagnosis: meningioma Plan: - defer any referral to Neurosurgery unless family or guardian requests this - she can benefit from guardianship with APS I personally attended this patient and spent a total time of 40 minutes evaluating this patient, from 12:57 to 1:37, including clinical assessment, review of chart, medical history imaging, and determining appropriate treatment and workup. Eleno Eaton MD Mechanical Project Manager [facility] Teleneurology HPI Consult Data Date of Consult: 08/16/23 HPI Narrative HPI Narrative: MARINA ESPINO, is a 87 yo woman with history of SDH, COPD, CAD, CHF, HLD, SDH and dementia on whom teleneurology is consulted for mass seen on imaging. Most history is per chart and per discussion with daughter as patient does not respond to most questions over video. Brought in by police for confusion after being lost in her car. Son came to ED and provided context to other physicians - she is not supposed to be driving and in fact had keys taken away. He stated she is currently at her baseline. CTH in ED showed skull base mass with associated vasogenic edema R frontal lobe. This was not present on prior scans of 2 years ago. MRI inpatient confirmed this and showed what is most likely a meningioma. While radiology does comment this could in principle also be consistent with dural metastasis there are no other signs of metastasis or cancer elsewhere. Explained findings to patient but she had no reaction and was eating calmly throughout our interview - unclear how much she understood. Called daughter Elise Ochoa who explained that family has been trying to get mother placed for some time and that Adult Protective Services are waiting on a grain elevator operator's signature to take legal guardianship - this has been a very lengthy process. [facility] Medical History Chronic systolic (congestive) heart failure Seizure CVA (cerebral vascular accident) Atherosclerotic heart disease of [place] coronary artery without angina pectoris Essential hypertension Concussion Fall SDH (subdural hematoma) Debility Right arm pain Stroke Cardiomyopathy HLD (hyperlipidemia) CAD (coronary artery disease) Abnormal ECG COPD (chronic obstructive pulmonary disease) Home Medications ?Medication ?Instructions ?Recorded ?Last Taken ?Type donepezil 5 mg tablet 5 mg PO QHS 12/02/17 Unknown Rx carvedilol 3.125 mg tablet 3.125 mg PO BID 12/28/18 Unknown History atorvastatin 10 mg tablet 10 mg PO DAILY 08/17/21 Unknown History bisacodyl 5 mg tablet 10 mg PO QHS 08/17/21 Unknown History diclofenac sodium 1 % topical gel 1 ea topical 4X/DAY 08/17/21 Unknown History (Voltaren Arthritis Pain) clopidogrel 75 mg tablet (Plavix) 75 mg PO DAILY 11/28/21 Unknown History amitriptyline 50 mg tablet 50 mg PO DAILY 08/16/23 Unknown History famotidine 40 mg tablet 40 mg PO DAILY 08/16/23 Unknown History ipratropium bromide 42 mcg (0.06 2 spray intranasal 4X/DAY PRN PRN 08/16/23 Unknown History %) nasal spray allergy symptoms levocetirizine 5 mg tablet 5 mg PO DAILY 08/16/23 Unknown History pantoprazole 40 mg tablet,delayed 40 mg PO DAILY 08/16/23 Unknown History release Allergy/AdvReac Type Severity Reaction Status Date / Time Sulfa (Sulfonamide Allergy Severe Hives Verified 08/16/23 07:41 Antibiotics) zolpidem (From Ambien) AdvReac Unknown Verified 08/16/23 07:41 Family History Father Myocardial infarction, Onset Age: 75 Surgical History History of spinal fusion History of left heart catheterization (LHC) (~05/23/06) Social History (Updated 08/16/23 @ 11:08 by Kajal Wright) housing: house Smoking Status: Former smoker alcohol intake: current details: occasional Vital Signs Vital Signs Vital Signs: 08/16/23 06:45 08/16/23 08:44 08/16/23 10:00 Temperature 98.1 F Temperature Source Oral Pulse Rate 64 73 72 Respiratory Rate 16 19 H 19 H Respiratory Effort Respiratory Depth Respiratory Pattern Blood Pressure 164/114 H 157/89 H 167/89 H Blood Pressure Mean 130 111 115 Blood Pressure Source Blood Pressure Position Blood Pressure Location Pulse Ox 98 97 97 Oxygen Delivery Method Room Air Room Air Room Air 08/16/23 10:45 08/16/23 10:55 08/16/23 11:06 Temperature 98.3 F 97.8 F Temperature Source Oral Pulse Rate 74 69 Respiratory Rate 22 H 14 Respiratory Effort Normal Non-Labored Respiratory Depth Normal Respiratory Pattern Normal Blood Pressure 154/79 H 164/77 H Blood Pressure Mean 104 106 Blood Pressure Source Monitor Blood Pressure Position Semi-Fowlers Blood Pressure Location Right Arm Pulse Ox 98 98 Oxygen Delivery Method Room Air Room Air Weight Weight: 54.5 kg Body Mass Index (BMI) 17.8 EEG Results Procedure Details EEG Procedure Details: MARINA ESPINO is a 87 year old F with a past medical history of , who presents for evaluation of Electroencephalogram on DATE at TIME Physical Exam Neuro Neuro Narrative: Patient does not participate with most of the exam, which is done with assistance of bedside nurse. To the best of our ability to examine: Eating calmly throughout exam. With considerable prompting she is oriented to self, hospital and year but not month. EOMI, no facial asymmetry, sensation intact in V1/2/3 bilaterally, hearing at least in part intact to voice, can recognize her own face on the screen but does not respond to video questions which must be repeated by bedside RN. Antigravity + throughout with equal financial institution vice president, push-pull, hip flexion, dorsi/plantarflexion, and sensation intact to light touch in all extremities. Lab / Micro Data 08/16/23 08:10 08/16/23 08:10 Labs: Laboratory Results - last 24 hr 08/16/23 08:10: WBC 5.4, RBC 4.71, Hgb 12.3, Hct 40.6, MCV 86.2, MCH 26.1 L, M CHC 30.3 L, RDW Std Deviation 42.5, RDW Coeff of Karine 13.7, Plt Count 294, MPV 10.0, Immature Gran % (Auto) 0.400, Neut % (Auto) 62.7, Lymph % (Auto) 27.0, [place] % (Auto) 7.6, Eos % (Auto) 1.7, Baso % (Auto) 0.6, Absolute Neuts (auto) 3.4, Absolute Lymphs (auto) 1.46, Nucleated RBC % 0, Sodium 140, Potassium 3.9, Chloride 107, Carbon Dioxide 28.0, Anion Gap 5, BUN 22 H, Creatinine 1.11 H, Estim Creat Clear Calc 34.75, Est GFR (MDRD) Af Amer 60, Est GFR (MDRD) Non-Af 50 L, BUN/Creatinine Ratio 19.8, Glucose 99, Calcium 9.8, Total Bilirubin 0.50, AST 15, ALT 12 L, Alkaline Phosphatase 73, Troponin I High Sens 16, Total Protein 7.1, Albumin 3.9, Globulin 3.2, Albumin/Globulin Ratio 1.2 08/16/23 10:25: Troponin I High Sens 18 Imaging Radiology Impression Brain CT 08/16/23 07:57 IMPRESSION: 2.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 Recommend correlation with MRI without and with contrast to assess for meningioma or other neoplasm. Adjacent edema or infarction of the right inferior frontal lobe. No acute intracranial hemorrhage identified. Chronic involutional and white matter changes. Electronically Signed: Radha Ayala MD at 9:38 EDT Reading Location ID and State: [facility] / [place] Tel , Service support , Chest X-Ray 08/16/23 09:07 IMPRESSION: Mild bibasilar atelectasis and scarring. Electronically Signed: Radha Ayala MD at 9:21 EDT , Brain MRI 08/16/23 10:20 IMPRESSION: 3 cm enhancing extra-axial mass arising from the planum sphenoidale, compatible with a skull base meningioma. Dural-based metastasis could have a similar appearance. Vasogenic edema of the adjacent right inferior frontal lobe. No evidence for acute infarct. Chronic involutional and white matter changes. Electronically Signed: Radha Ayala MD at 12:57 EDT , Active Medications Active Medications Active Medications: Current Medications Generic Name Dose Route Start Last Admin Trade Name Freq PRN Reason Stop Dose Admin Acetaminophen 650 mg 08/16/23 10:48 Acetaminophen 325 Mg Tablet PO Q6H PRN PRN Pain 1-10 Or Fever>100.7 Amitriptyline HCl 50 mg 08/17/23 10:00 Amitriptyline 25 Mg Tablet PO DAILY [facility] Atorvastatin Calcium 10 mg 08/17/23 10:00 Atorvastatin Calcium 10 Mg Tablet PO DAILY RHETT Bisacodyl 10 mg 08/16/23 22:00 Bisacodyl 5 Mg Tablet PO QHS [facility] Carvedilol 3.125 mg 08/16/23 17:00 Carvedilol 3.125 Mg Tablet PO BIDCM [facility] Protocol Compound Med 2 click 08/16/23 11:10 Arthritis Pain Compound 60 Click Tube TOPICAL TID PRN PRN Pain Score 1-10 Protocol Donepezil HCl 5 mg 08/16/23 22:00 Donepezil Hcl 5 Mg Tablet PO QHS RHETT Sodium Chloride 250 mls @ 15 mls/hr 08/16/23 10:49 IV .[id number] PRN Additional IVPB Infusion Sodium Chloride 250 mls @ 15 mls/hr 08/16/23 10:49 IV .[id number] PRN Saline Flush Iopamidol 0 ml 08/16/23 10:48 Contrast Allergy Safety Check IV X1 RHETT Loratadine 10 mg 08/17/23 10:00 Loratadine 10 Mg Tablet PO DAILY RHETT Melatonin 3 mg 08/16/23 10:48 Melatonin 3 Mg Tablet PO QHS PRN PRN INSOMNIA Ondansetron HCl 4 mg 08/16/23 10:48 Ondansetron 4 Mg/2 Ml Vial IV Q8H PRN PRN NAUSEA/VOMITING Pantoprazole Sodium 40 mg 08/17/23 10:00 Pantoprazole Sodium 40 Mg Tablet PO DAILY RHETT Sodium Chloride 10 - 40 ml 08/16/23 10:49 0.9% Saline Lock 10 Ml Syringe IV UD PRN SALINE FLUSH
[2023-08-16] MEDS: Carvedilol 3.125 MG TABLET PO (16:35)
--- NOTE | 2023-08-16 16:38 | NURSING ---
vera Peña [id number]
[2023-08-16] MEDS: Donepezil HCl 5 MG Tablet PO (21:00)
[2023-08-17 04:00] VITALS: BP 107/59; PULSE 65; RESP 18; TEMP 36.6; O2SAT 99
[2023-08-17 05:45] LABS: Hematocrit 39.8 % (37-47); Mean Corp Hgb Conc 30.2 g/dL (32-36); Mean Corpuscular Hgb 26.1 pg (27.0-32.0); Mean Corpuscular Volume 86.5 fL (81-99); Mean Platelet Vol. 9.8 fl (6.2-12.0); Platelet Count 302 K/mm3 (150-450); RBC Distribution Width CV 13.6 % (11.6-14.6); RBC Distribution Width SD 42.7 fl (35.1-43.9); White Blood Count 6.3 K/mm3 (4.4-11.0)
[2023-08-17 06:05] LABS: Anion Gap 4 (5-15); BUN 20 mg/dL (7-18); BUN/Creat Ratio 23.7 RATIO (10-20); Calcium,Total 9.3 mg/dL (8.5-10.1); Chloride 108 mmol/L (98-107); Creatinine, Serum 0.84 mg/dL (0.55-1.02); EST Glomerular Filtration Rate 68 mL/min (>60); Est Glom Filt Rate - Afr Amer 82 mL/min (>60); Estimated Creatinine Clearance 42.13 ml/min; Glucose 99 mg/dL (74-106); Potassium 3.7 mmol/L (3.5-5.1); Sodium Level 140 mmol/L (136-145)
[2023-08-17 08:32] VITALS: O2SAT 94
[2023-08-17 10:08] VITALS: BP 115/74; PULSE 77; RESP 16; TEMP 37.1; O2SAT 100
[2023-08-17] MEDS: Atorvastatin Calcium 10 MG Tablet PO (10:27)
[2023-08-17] MEDS: Pantoprazole Sodium 40 MG Tablet PO (10:27)
[2023-08-17] MEDS: Amitriptyline 25 MG Tablet 50 MG PO (10:27)
[2023-08-17] MEDS: Carvedilol 3.125 MG TABLET PO ×2 (10:28→17:20)
[2023-08-17] MEDS: Loratadine 10 MG Tablet PO (10:28)
--- NOTE | 2023-08-17 11:12 | PCM.PN.HOSP ---
Reason for Visit Reason for Visit: Diagnoses Unspecified dementia, unspecified severity, without behavioral disturbance, psychotic disturbance, mood disturbance, and anxiety (08/16/23) Other specified disorders of brain (08/16/23) Other malaise (08/16/23) Subjective Subjective No acute events overnight. Patient seen at bedside this morning, son present. Patient sitting up comfortably in bed, no acute distress. Making appropriate eye contact but not answering questions appropriately, similar to yesterday. Appears to be at her baseline. No new concerns this morning. Objective Data Objective Data Vital Signs: Vital Signs Temp Pulse Resp BP Pulse Ox O2 Del Method 98.8 F 77 16 115/74 100 Room Air 08/17/23 10:08 08/17/23 10:08 08/17/23 10:08 08/17/23 10:08 08/17/23 10:08 08/17/23 10:41 Oxygen Delivery Method Room Air Weight: 54.5 kg Body Mass Index (BMI) 17.8 Intake & Output: Intake and Output for Last 24 Hours 08/15/23 08/16/23 08/17/23 23:59 23:59 23:59 Intake Total 450 / 570 240 / 240 Balance 450 / 570 240 / 240 Lab / Micro Data 08/17/23 05:33 08/17/23 05:33 Labs: Laboratory Results - last 24 hr 08/17/23 05:33: WBC 6.3, RBC 4.60, Hgb 12.0, Hct 39.8, MCV 86.5, MCH 26.1 L, MCHC 30.2 L, RDW Std Deviation 42.7, RDW Coeff of Karine 13.6, Plt Count 302, MPV 9.8, Sodium 140, Potassium 3.7, Chloride 108 H, Carbon Dioxide 28.0, Anion Gap 4 L, BUN 20 H, Creatinine 0.84, Estim Creat Clear Calc 42.13, Est GFR (MDRD) Af Amer 82, Est GFR (MDRD) Non-Af 68, BUN/Creatinine Ratio 23.7 H, Glucose 99, Calcium 9.3 Radiography Diagnostic Testing: Radiology Impression Brain MRI 08/16/23 10:20 IMPRESSION: 3 cm enhancing extra-axial mass arising from the planum sphenoidale, compatible with a skull base meningioma. Dural-based metastasis could have a similar appearance. Vasogenic edema of the adjacent right inferior frontal lobe. No evidence for acute infarct. Chronic involutional and white matter changes. Electronically Signed: Radha Ayala MD at 12:57 EDT , Physical Exam Const alert and no apparent distress Constitutional Narrative: Elderly female, thin and somewhat cachectic appearing, sitting up comfortably in bed, making appropriate eye contact but not answering questions appropriately due to dementia, in no acute distress. Stable. General Appearance: cooperative and comfortable HEENT normocephalic, head/scalp atraumatic, hearing grossly normal bilaterally and nasal mucous membranes and turbinates normal Eyes PERRL, EOMs intact bilaterally and conjunctivae normal Neck full ROM Chest inspection of chest normal Resp normal respiratory effort, normal air movement, no use of accessory muscles and clear to auscultation bilaterally Cardio regular rate, regular rhythm, no murmurs and peripheral pulses 2+ throughout GI normal to inspection, nondistended, normoactive bowel sounds, soft to palpation, non-tender and non-distended Back/Spine normal ROM Extremity normal to inspection and no pedal edema Skin no rashes or lesions noted Neuro moves all extremities and no focal motor deficits Assessment & Plan Assessment/Plan (1) Dementia: (2) Brain mass: (3) Debility: PLAN: Plan Patient is an 87-year-old female who presented [facility] ED on 08/16/2023 with altered mentation. 1. Concern for altered mentation versus worsening dementia; new brain mass Presentation seems more consistent with worsening dementia rather than acute altered mentation. CT brain without contrast on admit showed a 2.7 cm anterior cranial fossa/skull base mass with adjacent edema or infarction of right inferior frontal lobe. 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 Patient hemodynamically stable and labs unremarkable on admission. ? Neurology following. Noted that mass is probably a meningioma and typically this would be referred to neurosurgery; however, this meningioma is responsible for dementia and resecting it would likely accelerate the dementia process. Recommended against any surgical evaluation and daughter was in agreement with this. Neurology noted that patient is not safe to live independently without assistance and will need guardianship. Case management following, appreciate assistance. Unclear if patient may be candidate for SNF placement on discharge versus planning for placement in an extended care facility on discharge. Avoid sedating medications as able. 2. Debility ? PT/OT/case management following. Suspect patient is about at her baseline but has had worsening weakness and debility over the past weeks to months suspected due to worsening dementia as noted above. 3. Malnutrition ? Nutrition following. Met malnutrition criteria on admit as evidenced by less than 50% p.o. intake of usual intake and mild to moderate fat/muscle loss throughout the body, as well as BMI 17.8 and around 3% weight loss over the last month. Per nutrition, continue normal regular diet with Ensure high-protein with meals. Chronic medical conditions: ? History of heart failure with recovered ejection fraction with nonischemic cardiomyopathy, hypertension, hyperlipidemia: Stable. Continue home Coreg and statin. Holding home Plavix for now given new brain mass as noted above. ? History of fall with subdural hematoma ? GERD: Continue home PPI. ? Allergies: Continue home cetirizine. DVT prophylaxis: Lovenox CODE STATUS: DNR CCA, DNI Expected disposition: TBD Total clinical time spent by myself addressing the patient's medical issues, reviewing all the data, and collaborating with patient's care team: 35 minutes. Charges/Coding Visit Charges Inpatient E&M: 20297 Subs Hosp L2
[2023-08-17 15:26] VITALS: BP 104/61; PULSE 73; RESP 15; TEMP 36.5; O2SAT 98
[2023-08-17 15:41] LABS: Mucous, Urine 0 SEEN /hpf (<or=2+)
[2023-08-17 15:46] LABS: Color, Urine Yellow (Yellow); Glucose, Dipstick Normal (Normal); Ketone-Dipstick Negative (Negative); Leukocyte Esterase-Dipstick 500 /ul (Negative); Nitrite-Dipstick Negative (Negative); Occult Blood-Urine Negative /ul (Negative); Protein-Dipstick Negative (Negative); Urine Bilirubin Dipstick Negative (Negative); Urine Clarity Sl. Cloudy (Clear); Urine Urobilinogen Normal (Normal)
[2023-08-17 16:05] LABS: Red Blood Cells-Urine 0-5 SEEN /hpf (0-5); White Blood Cells 10-25 SEEN /hpf (0-5)
[2023-08-17 16:06] LABS: Amorphous Sediment 1+ URATE; Bacteria RARE /hpf (None Seen); Squamous Epithelial Cells - UA 0-5 SEEN /hpf (5-10)
[2023-08-17 17:16] VITALS: BP 112/78; PULSE 67; RESP 14; TEMP 36.6; O2SAT 98
[2023-08-17 19:34] VITALS: BP 127/79; PULSE 68; RESP 18; TEMP 36.2; O2SAT 100
[2023-08-17] MEDS: MELATONIN 3 MG TABLET PO (20:26)
[2023-08-17] MEDS: 0.9% Saline Lock 10 ML Syringe IV (20:26)
[2023-08-17] MEDS: Donepezil HCl 5 MG Tablet PO (20:26)
[2023-08-17] MEDS: Acetaminophen 325 MG Tablet 650 MG PO (23:45)
[2023-08-18] VITALS (7 sets, daily range): BP systolic 100–143; BP diastolic 64–96; PULSE 66–80; RESP 14–18; TEMP 35.8–36.6; O2SAT 93–100
[2023-08-18] MEDS: Loratadine 10 MG Tablet PO (09:21)
[2023-08-18] MEDS: Atorvastatin Calcium 10 MG Tablet PO (09:21)
[2023-08-18] MEDS: Enoxaparin 40 MG/0.4 ML Syringe SC (09:22)
[2023-08-18] MEDS: Pantoprazole Sodium 40 MG Tablet PO (09:22)
[2023-08-18] MEDS: Carvedilol 3.125 MG TABLET PO (09:22)
[2023-08-18] MEDS: Amitriptyline 25 MG Tablet 50 MG PO (09:22)
--- NOTE | 2023-08-18 09:49 | PN.HOSP_ITS ---
Reason for Visit Reason for Visit: Diagnoses Unspecified dementia, unspecified severity, without behavioral disturbance, psychotic disturbance, mood disturbance, and anxiety (08/17/23) Other specified disorders of brain (08/17/23) Other malaise (08/17/23) Subjective Subjective Pleasantly confused. Objective Data Objective Data Vital Signs: Vital Signs Temp Pulse Resp BP Pulse Ox O2 Del Method 36.6 C 67 15 113/80 97 Room Air 08/18/23 09:10 08/18/23 09:10 08/18/23 09:10 08/18/23 09:10 08/18/23 09:10 08/18/23 09:12 Oxygen Delivery Method Room Air Weight: 54.5 kg Body Mass Index (BMI) 17.8 Intake & Output: Intake and Output for Last 24 Hours 08/16/23 08/17/23 08/18/23 23:59 23:59 23:59 Intake Total 450 / 570 855 / 855 Output Total 600 / 600 Balance 450 / 570 255 / 255 Medical Nutrition Assessment Dietitian: Malnutrition Criteria Met Start: 08/17/23 11:27 Freq: Status: Active Protocol: Document 08/17/23 11:27 DIETER (Rec: 08/17/23 11:27 [facility] ) Nutrition Malnutrition Evidence of Malnutrition Exists Yes Malnutrition (moderate): Acute Illness/Injury Evidenced By Suboptimal Energy Intake ( Moderate),Physical Changes ( Mild),Physical Changes ( Moderate) Clinical Problem Acute Disease or Injury Related Malnutrition Etiology related to inadequate po intake and dementia Signs/Symptoms as evidenced by <50% po intake of usual intake and mild-mod fat/muscle loss throughout body; BMI 17.8 - also w/ ~3% wt loss within last month Status Active Problem Recommendation Dietitian Recommendations/Changes Continue liberal regular diet d/t signs and symptoms of malnutrition Will order chocolate ensure plus high protein tid w/ meals for increased nutrition if consumed (family request ONS w / meals vs medpass) Lab / Micro Data 08/17/23 05:33 08/17/23 05:33 Labs: Laboratory Results - last 24 hr 08/16/23 15:30: Urine Color Yellow, Urine Clarity Sl. Cloudy, Urine pH 6.0, Ur Specific [place] 1.020, Urine Protein Negative, Urine Glucose (UA) Normal, Urine Ketones Negative, Urine Occult Blood Negative, Urine Nitrite Negative, Urine Bilirubin Negative, Urine Urobilinogen Normal, Ur Leukocyte Esterase 500 H, Urine RBC 0-5 SEEN, Urine WBC 10-25 SEEN, Ur Squamous Epith Cells 0-5 SEEN, Amorphous Sediment 1+ URATE, Urine Bacteria RARE, Urine Mucus 0 SEEN Physical Exam Const alert and no apparent distress Constitutional Narrative: oriented to self. HEENT head/scalp atraumatic and moist oral mucous membranes Eyes PERRL and EOMs intact bilaterally Neck no lymphadenopathy and supple GI normal to inspection, nondistended, normoactive bowel sounds and soft to palpation Extremity normal to inspection Neuro Sensorium / Orientation: awake and alert Assessment & Plan Assessment/Plan (1) Dementia: (2) Brain mass: (3) Debility: PLAN: Plan 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 * Family declined transfer for neurosurgery evaluation. * Supportive management this time. * Hold off on steroids unless her condition does get worse. I would be concerned about patient having worsening delirium with the steroids yet to be started now. Dementia * No correlation related with meningioma * Minimize potentiating agents. Debility * PT/OT/case management following. * Suspect patient is about at her baseline but has had worsening weakness and debility over the past weeks to months suspected due to worsening dementia as noted above. Malnutrition * Nutrition following. Met malnutrition criteria on admit as evidenced by less than 50% p.o. intake of usual intake and mild to moderate fat/muscle loss throughout the body, as well as BMI 17.8 and around 3% weight loss over the last month. Per nutrition, continue normal regular diet with Ensure high- protein with meals. Chronic medical conditions: * HFpEF: compensated. Continue home Coreg and statin. Holding home Plavix for now given new brain mass as noted above. * GERD: Continue home PPI. * Allergies: Continue home cetirizine. DVT prophylaxis: Lovenox CODE STATUS: DNR CCA, DNI Expected disposition: TBD Charges/Coding Visit Charges Inpatient E&M: 13508 Subs Hosp L2
--- NOTE | 2023-08-18 13:53 | CASEMGMT ---
Addendum entered by Marjorie Barnett 08/18/23 15:10: Family declined a SNF list unless patient cannot go to [facility]. Marjorie ANDRES Original Note: CHERYLE spoke with RN and family has been trying to get patient into assisted living at [facility]. Per child and family services worker has also been working on getting a guardian for patient. CHERYLE called patient's daughter Aleta who lives in [place]. Aleta explained that they would like for patient to go to [facility] under her insurance. Aleta has been working with Don at [facility] on getting patient a guardian and getting patient into [facility] [place]. Aleta said that if by some chance insurance does not pay, patient does have some funds to private pay for a short time. CHERYLE let Aleta know a referral will be made to [facility]. CHERYLE will follow up with Don at [facility]. CHERYLE let Aleta know that CHERYLE will follow up with her. Marjorie ANDRES
--- NOTE | 2023-08-18 14:20 | CASEMGMT ---
CHERYLE spoke with Don at [facility]. Don confirmed she has been working with patient's daughter Aleta on getting patient a guardian. Aleta will not be the guardian as she lives in [place]. CHERYLE let Don know the plan is to try and get patient into [facility] skilled. Don said the courts are 1-2 months out on guardianship hearings. CHERYLE will keep Don updated on d/c plan. Marjorie ANDRES
--- NOTE | 2023-08-18 14:40 | CHAPLAIN ---
Type of Pastoral Visit _x__ Initial Visit ___ Follow-up Visit ___ On-call Visit ___ General Patient Visit ___ Spiritual Assessment ___ Family Conference ___ Bereavement ___ Rapid Response ___ Code Blue ___ Other (describe below) Pastoral Care Referral From _x__ Patient ___ Family ___ Nurse ___ Physician ___ Electrician Elevator Maintenance ___ Water Main Inspector ___ Other (describe below) Sacrament/Intervention _x__ Active listening ___ Anointing ___ Buddhist ___ Bereavement ___ Communion ___ [place] exploration ___ ___ Life review _x__ Prayer ___ Reconciliation ___ Sacrament of Sick _x__ Supportive presence ___ Wedding ___ Other (describe below) Pastoral Comments at first attempt a calling card is left due to pt being asleep; on second attempt the pt is looking at her card and is awake; this assistant professor surgical technology introduces self and role to pt but pt mumbles something and then continues to talk without clear understanding; this assistant professor surgical technology sits at bedside and interacts with the pt while she talks or asks questions that sometimes make sense and sometimes does not; pt repeats herself when asking this assistant professor surgical technology where he lives; pt is offered a prayer and she accepts
--- NOTE | 2023-08-18 15:27 | CASEMGMT ---
Addendum entered by Penelope Kim 08/19/23 08:41: Updates sent to [facility] via [facility] and requested that precert be started (was not submitted yesterday). Penelope Kim DC Planning Asst. Addendum entered by Penelope Kim 08/18/23 15:42: [facility] accepted and will submit for precert. Penelope Kim DC Planning Asst. Original Note: Discharge Planning Referral sent to [facility] via [facility]. Penelope Kim DC Planning Asst.
[2023-08-18] MEDS: MELATONIN 3 MG TABLET PO (20:27)
[2023-08-18] MEDS: Donepezil HCl 5 MG Tablet PO (20:27)
[2023-08-19 05:00] VITALS: BP 113/75; PULSE 70; RESP 18; TEMP 36.1; O2SAT 96
[2023-08-19 07:42] VITALS: O2SAT 95
[2023-08-19] MEDS: Carvedilol 3.125 MG TABLET PO (09:37)
[2023-08-19] MEDS: Enoxaparin 40 MG/0.4 ML Syringe SC (09:37)
[2023-08-19] MEDS: Loratadine 10 MG Tablet PO (09:37)
[2023-08-19] MEDS: Pantoprazole Sodium 40 MG Tablet PO (09:37)
[2023-08-19] MEDS: Amitriptyline 25 MG Tablet 50 MG PO (09:37)
[2023-08-19] MEDS: Atorvastatin Calcium 10 MG Tablet PO (09:38)
[2023-08-19 10:00] VITALS: BP 107/53; PULSE 74; RESP 18; TEMP 37; O2SAT 96
--- NOTE | 2023-08-19 12:00 | CASEMGMT ---
Patient was approved for [facility]. SW notified physician, fish agent, and charge loader. SW completed a PASRR as [facility]. Plan: d/c to [facility] under skilled level of care on a PASRR. Physicians will transport patient via cot. Marjorie ANDRES
--- NOTE | 2023-08-19 12:52 | PCM.TXEXTCAR ---
Diet Diet Order/Speech Therapy: 08/16/23 10:48 Diet: Regular - General Food consistency:: Easy to Chew Liquid Consistency:: Regular/Thin Type of Dietary Supplement:: rafi EPHP w/ meals tid Is pt able to select menu?: Yes Diet Comments: 1:1 direct supervision, small bite/small sip, only feed when alert Therapies Weight Bearing: Full weight bearing Physical Therapy: Eval and Treat Occupational Therapy: Eval and Treat Problem/Diagnosis (1) Dementia: Status: Acute Code(s): F03.90 - Unspecified dementia, unspecified severity, without behavioral disturbance, psychotic disturbance, mood disturbance, and anxiety (2) Brain mass: Status: Acute Code(s): G93.89 - Other specified disorders of brain (3) Debility: Status: Acute Code(s): R53.81 - Other malaise Plan Brain mass favoring meningioma with vasogenic edema. Family declined transfer for neurosurgery evaluation. Supportive management this time. Hold off on steroids unless her condition does get worse. I would be concerned about patient having worsening delirium with the steroids yet to be started now. Dementia No correlation related with meningioma Minimize potentiating agents. Debility PT/OT/case management following. Suspect patient is about at her baseline but has had worsening weakness and debility over the past weeks to months suspected due to worsening dementia as noted above. Malnutrition Nutrition following. Met malnutrition criteria on admit as evidenced by less than 50% p.o. intake of usual intake and mild to moderate fat/muscle loss throughout the body, as well as BMI 17.8 and around 3% weight loss over the last month. Per nutrition, continue normal regular diet with Ensure high-protein with meals. Chronic medical conditions: HFpEF: compensated. Continue home Coreg and statin. Holding home Plavix for now given new brain mass as noted above. GERD: Continue home PPI. Allergies: Continue home cetirizine. DVT prophylaxis: Lovenox CODE STATUS: DNR CCA, DNI Expected disposition: TBD Allergies/Procedures Done in Hospital Allergies Sulfa (Sulfonamide Antibiotics) Allergy (Severe, Verified 08/16/23 07:41) Hives zolpidem (From Ambien) Adverse Reaction (Verified 08/16/23 07:41) Unknown Type of Care/Length of Stay Estimated LOS: Convalescent Care Less Than 30 days Type of Care Needed: Skilled Rehab Potential: Fair Prognosis: Fair Additional Orders/Day of Discharge Day of Discharge: 08/19/23 Dietary and Speech Recommendations Dietitian Recommendations/Changes: Continue liberal regular diet d/t signs and symptoms of malnutrition Will order chocolate ensure plus high protein tid w/ meals for increased nutrition if consumed (family request ONS w/ meals vs medpass) Discharge Plan Admission Admit Date/Time: 08/17/23 16:21 Primary Reason for Your Visit: debility Attending Provider: [place] Primary Care Provider: Natalee Spaulding Consulting Providers: Neil Bellamy; Adan Cervantes; Kailey Kenny; Renetta Quinones; Sulma Ochoa; Nessa Jimenez; Bruce Dejesus; Arabella Myers; Naldo Carreon; Nael Carreon; Bel Sethi; Jairo Schmidt; Monica Donahue; Hero Pa; Kylah Terrell; Eleno Eaton; Sathish Lowe; Gee Srinivasan; April Bautista; Miguel Angel Simon Discharge Orders/Prescriptions Prescriptions: Continued donepezil 5 MG tablet 5 mg PO QHS 0RF atorvastatin 10 mg Tablet 10 mg PO DAILY diclofenac sodium [Voltaren Arthritis Pain] 1 % Gel 1 ea TOPICAL 4X/DAY clopidogrel [Plavix] 75 mg Tablet 75 mg PO DAILY famotidine 40 mg tablet 40 mg PO DAILY pantoprazole 40 mg tablet,delayed release (DR/EC) 40 mg PO DAILY ipratropium bromide 42 mcg (0.06 %) spray,non-aerosol 2 spray INTRANASAL 4X/DAY PRN PRN (Reason: allergy symptoms) levocetirizine 5 mg tablet 5 mg PO DAILY amitriptyline 50 mg tablet 50 mg PO DAILY albuterol sulfate 90 mcg/actuation HFA aerosol inhaler 2 puff inhalation Q6H PRN (Reason: sob wheezes) Discontinued carvedilol 3.125 mg tablet 3.125 mg PO BID Referrals / Follow Up: Natalee Spaulding MD [Primary Care Provider] - Within 2 Weeks Disposition Disposition (needs filled in before D/C Order can be placed): Residential Facility
--- NOTE | 2023-08-19 12:55 | DS.PCM_ITS ---
Providers Date of Admission: 08/17/23 Primary Care Physician: Dr. Natalee Spaulding MD Consultations 08/16/23 10:48 neuro [Consult: Tele-Neurology] Routine Consulting Provider: [facility] Reason for Consult: new brain mass, presented w/ AMS EMERGENT Consult: No MD Notified: Yes Date Notified: 08/16/23 Time Notified: 10:19 Method of Notification: Answering Service Nursing Unit Staff Notify [facility] of Tele-Neurology Consult: Yes Reason For Visit: ALTERED MENTATION WITH BRAIN MASS Diagnosis Discharge Diagnosis (1) Dementia: Status: Acute Code(s): F03.90 - Unspecified dementia, unspecified severity, without behavioral disturbance, psychotic disturbance, mood disturbance, and anxiety (2) Brain mass: Status: Acute Code(s): G93.89 - Other specified disorders of brain (3) Debility: Status: Acute Code(s): R53.81 - Other malaise Plan 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 * Family declined transfer for neurosurgery evaluation. * Supportive management this time. * Hold off on steroids unless her condition does get worse. I would be concerned about patient having worsening delirium with the steroids yet to be started now. Dementia * No correlation related with meningioma * Minimize potentiating agents. Debility * PT/OT/case management following. * Suspect patient is about at her baseline but has had worsening weakness and debility over the past weeks to months suspected due to worsening dementia as noted above. Malnutrition * Nutrition following. Met malnutrition criteria on admit as evidenced by less than 50% p.o. intake of usual intake and mild to moderate fat/muscle loss throughout the body, as well as BMI 17.8 and around 3% weight loss over the last month. Per nutrition, continue normal regular diet with Ensure high- protein with meals. Chronic medical conditions: * HFpEF: compensated. Continue home Coreg and statin. Holding home Plavix for now given new brain mass as noted above. * GERD: Continue home PPI. * Allergies: Continue home cetirizine. DVT prophylaxis: Lovenox CODE STATUS: DNR CCA, DNI Expected disposition: TBD Medications at Discharge Home Medications donepezil 5 mg tablet 5 mg PO QHS 12/02/17 atorvastatin 10 mg tablet 10 mg PO DAILY cholesterol 08/17/21 diclofenac sodium 1 % topical gel (Voltaren Arthritis Pain) 1 ea topical 4X/DAY pain arthritis 08/17/21 clopidogrel 75 mg tablet (Plavix) 75 mg PO DAILY antiplatlet 11/28/21 amitriptyline 50 mg tablet 50 mg PO DAILY 08/16/23 famotidine 40 mg tablet 40 mg PO DAILY 08/16/23 ipratropium bromide 42 mcg (0.06 %) nasal spray 2 spray intranasal 4X/DAY PRN PRN allergy symptoms 08/16/23 levocetirizine 5 mg tablet 5 mg PO DAILY 08/16/23 pantoprazole 40 mg tablet,delayed release 40 mg PO DAILY 08/16/23 albuterol sulfate 90 mcg/actuation aerosol inhaler 2 puff inhalation Q6H PRN sob wheezes 08/18/23 Hospital Course Operations None Procedures None Summary of Care Provided Hospital Course: Patient presents with increased confusion. She was brought to the emergency room and had a CAT scan that showed a 2.7 cm mass. She later went on and had an MRI that showed the mass with vasogenic edema. Patient was seen by neurology who felt that was prior more likely meningioma and recommended neurosurgical evaluation for further recommendations. Given the patient's underlying dementia, the family declined transfer to a facility with neurosurgery. Patient remained stable while she was here. Steroids were not initiated as that could help with vasogenic edema as it may facilitate increased confusion and patient already with dementia. Patient was stable during her hospitalization. Patient has been approved to go to a senior living facility and will be discharged in stable condition. Medical Records Data Medical Nutrition Assessment Dietitian: Malnutrition Criteria Met Start: 08/17/23 11:27 Freq: Status: Active Protocol: Document 08/17/23 11:27 DIETER (Rec: 08/17/23 11:27 [facility] ) Nutrition Malnutrition Evidence of Malnutrition Exists Yes Malnutrition (moderate): Acute Illness/Injury Evidenced By Suboptimal Energy Intake ( Moderate),Physical Changes ( Mild),Physical Changes ( Moderate) Clinical Problem Acute Disease or Injury Related Malnutrition Etiology related to inadequate po intake and dementia Signs/Symptoms as evidenced by <50% po intake of usual intake and mild-mod fat/muscle loss throughout body; BMI 17.8 - also w/ ~3% wt loss within last month Status Active Problem Recommendation Dietitian Recommendations/Changes Continue liberal regular diet d/t signs and symptoms of malnutrition Will order chocolate ensure plus high protein tid w/ meals for increased nutrition if consumed (family request ONS w / meals vs medpass) Weight / BMI Weight Weight: 54.5 kg Body Mass Index (BMI) 17.8 ABG / Lab / Microbiology Data 08/17/23 05:33 08/17/23 05:33 D/C Instructions Discharge Diet: No restrictions Meaningful Use Info Meaningful Use Meaningful Use Diagnoses (Choose all that apply): None applicable Ischemic Stroke Statin Dosing Therapy Reference: STATIN DOSE THERAPY REFERENCE: * Patients > 75 years receive moderate or high dose statin therapy. * Patients 75 years or YOUNGER should receive HIGH intensity statin dose unless contraindicated. You will be required to document reason for non-treatment if statin daily dose does not meet guidelines. HIGH DOSE STATIN THERAPY DAILY Atorvastatin > than or = to 40 mg Rosuvastatin > than or = to 20 mg Amlodipine + Atorvastatin > than or = to 2.5/40 mg Ezetimibe + Simvastatin 10/80 mg Simvastatin 80mg Discharge Plan Admission Admit Date/Time: 08/17/23 16:21 Primary Reason for Your Visit: debility Attending Provider: [place] Primary Care Provider: Natalee Spaulding Consulting Providers: Neil Bellamy; Adan Cervantes; Kailey Kenny; Renetta Quinones; Sulma Ochoa; Nessa Jimenez; Bruce Dejesus; Arabella Myers; Naldo Carreon; Nael Carreon; Bel Sethi; Jairo Schmidt; Monica Donahue; Hero Pa; Kylah Terrell; Eleno Eaton; Sathish Lowe; Gee Srinivasan; April Bautista; Miguel Angel Simon Discharge Orders/Prescriptions Prescriptions: Continued donepezil 5 MG tablet 5 mg PO QHS 0RF atorvastatin 10 mg Tablet 10 mg PO DAILY diclofenac sodium [Voltaren Arthritis Pain] 1 % Gel 1 ea TOPICAL 4X/DAY clopidogrel [Plavix] 75 mg Tablet 75 mg PO DAILY famotidine 40 mg tablet 40 mg PO DAILY pantoprazole 40 mg tablet,delayed release (DR/EC) 40 mg PO DAILY ipratropium bromide 42 mcg (0.06 %) spray,non-aerosol 2 spray INTRANASAL 4X/DAY PRN PRN (Reason: allergy symptoms) levocetirizine 5 mg tablet 5 mg PO DAILY amitriptyline 50 mg tablet 50 mg PO DAILY albuterol sulfate 90 mcg/actuation HFA aerosol inhaler 2 puff inhalation Q6H PRN (Reason: sob wheezes) Discontinued carvedilol 3.125 mg tablet 3.125 mg PO BID Referrals / Follow Up: Natalee Spaulding MD [Primary Care Provider] - Within 2 Weeks Disposition Disposition (needs filled in before D/C Order can be placed): Jail Facility Charges/Coding Visit Charges Inpatient E&M: 01225 Disch Hosp
--- NOTE | 2023-08-19 13:00 | CASEMGMT ---
CHERYLE called patient's daughter Aleta. SW left her a voice mail letting her know patient was approved by insurance to go to [facility] and patient will go today. CHERYLE called patient's son Milind. SW left him a voice mail letting him know patient was approved by insurance to to to [facility] and patient will go today. CHERYLE called Don with Adult Protective Services and notified her patient will be going to [facility] today under her insurance. Plan: d/c to [facility] under skilled level of care on a PASRR. Physicians will transport patient via cot. Marjorie ANDRES
--- NOTE | 2023-08-19 13:33 | CASEMGMT ---
CHERYLE received a call from patient's son Milind. Milind asked if he needs to get anything together for patient. CHERYLE told him to pack comfortable clothes, nightgown etc. Milind said he will get patient's belongings to her at [facility]. Marjorie ANDRES
[2023-08-19 13:49] VITALS: BP 124/67; PULSE 70; RESP 18; TEMP 36.9; O2SAT 98
--- NOTE | 2023-08-19 14:11 | PHA.DC.MR.R ---
Pharmacy [place] Med Reconciliation Pharmacy Service has performed discharge medication reconciliation for this patient. The patient's discharge medication list was reviewed for discrepancies and discrepancies were resolved. Medications at Discharge Home Medications donepezil 5 mg tablet 5 mg PO QHS 12/02/17 atorvastatin 10 mg tablet 10 mg PO DAILY cholesterol 08/17/21 diclofenac sodium 1 % topical gel (Voltaren Arthritis Pain) 1 ea topical 4X/DAY pain arthritis 08/17/21 clopidogrel 75 mg tablet (Plavix) 75 mg PO DAILY antiplatlet 11/28/21 amitriptyline 50 mg tablet 50 mg PO DAILY 08/16/23 famotidine 40 mg tablet 40 mg PO DAILY 08/16/23 ipratropium bromide 42 mcg (0.06 %) nasal spray 2 spray intranasal 4X/DAY PRN PRN allergy symptoms 08/16/23 levocetirizine 5 mg tablet 5 mg PO DAILY 08/16/23 pantoprazole 40 mg tablet,delayed release 40 mg PO DAILY 08/16/23 albuterol sulfate 90 mcg/actuation aerosol inhaler 2 puff inhalation Q6H PRN sob wheezes 08/18/23
--- NOTE | 2023-08-19 14:19 | CASEMGMT ---
Discharge Planning Discharge orders, signed med list, and transport time sent to [facility] via [facility]. Physicians will transport patient by cot at 4:30p. Nursing and SW updated. Penelope Kim DC Planning Asst.
--- NOTE | 2023-08-19 14:24 | CASEMGMT ---
Met with patient to complete KULKARNI form. KULKARNI form explained to patient who voiced understanding and signed form. Original form placed in pt?s chart and copy provided to patient. Penelope Kim, Discharge Planning Asst
== END 2023-08-19 16:06 | disposition skilled nursing facility (03) | DRG 54 ==
LOC: ED 10:19 → PCU 13:46
PROVIDERS: Admitting Provider Hospitalist; Emergency Provider Student in an Organized Health Care Education/Training Program; PCP Internal Medicine
DX: D32.0 Benign neoplasm of cerebral meninges (principal); G93.6 Cerebral edema; E44.0 Moderate protein-calorie malnutrition; I42.8 Other cardiomyopathies; I50.22 Chronic systolic (congestive) heart failure; Z68.1 Body mass index [BMI] 19.9 or less, adult; F03.90 Unspecified dementia, unspecified severity, without behavioral disturbance, psychotic disturbance, mood disturbance, and anxiety; I11.0 Hypertensive heart disease with heart failure; J44.9 Chronic obstructive pulmonary disease, unspecified; E78.5 Hyperlipidemia, unspecified; K21.9 Gastro-esophageal reflux disease without esophagitis; I25.10 Atherosclerotic heart disease of native coronary artery without angina pectoris; R53.81 Other malaise; Z66 Do not resuscitate; Z87.891 Personal history of nicotine dependence; Z79.02 Long term (current) use of antithrombotics/antiplatelets; Z91.81 History of falling
CPT/HCPCS: 36415; 70450; 70553; 71045; 80048; 80053; 81001; 84484; 85025; 85027; 92526; 92610; 93005; 97163; 97166; 97535; 97802; 99284; A9575; A4216

== ENCOUNTER → 2023-09-16 14:39 | Outpatient (REF) | payer MEDICARE, SELFPAY ==
[2023-09-16 15:45] LABS: Hematocrit 33.5 % (37-47); Hemoglobin 10.1 g/dL (12.0-15.0); Mean Corp Hgb Conc 30.1 g/dL (32-36); Mean Corpuscular Hgb 25.8 pg (27.0-32.0); Mean Corpuscular Volume 85.7 fL (81-99); Mean Platelet Vol. 10.4 fl (6.2-12.0); Platelet Count 332 K/mm3 (150-450); RBC Distribution Width CV 13.4 % (11.6-14.6); RBC Distribution Width SD 41.6 fl (35.1-43.9); Red Blood Count 3.91 M/mm3 (4.2-5.4)
== END ==
LOC: OLS.SW 14:39
PROVIDERS: PCP Internal Medicine; Visit Provider Family Medicine
DX: R53.83 Other fatigue (principal); R05.9 Cough, unspecified; R09.81 Nasal congestion
CPT/HCPCS: 85027

== ENCOUNTER 2023-09-28 20:06 | Inpatient (IN) | payer MEDICARE, MEDICAID, SELFPAY ==
[2023-09-28 20:11] VITALS: BP 114/43; PULSE 112; RESP 20; TEMP 38.3; O2SAT 100; O2SAT 95; BMI 18.2
[2023-09-28 20:15] VITALS: BP 114/43; PULSE 111; RESP 20; TEMP 38.3; O2SAT 100
--- NOTE | 2023-09-28 20:30 | EKG12_ITS ---
Test Reason : ALT LOC Blood Pressure : / mmHG Vent. Rate : 111 BPM Atrial Rate : 111 BPM P-R Int : 160 ms QRS Dur : 088 ms QT Int : 358 ms P-R-T Axes : 076 032 071 degrees QTc Int : 486 ms Sinus tachycardia Low voltage QRS Borderline ECG Confirmed by ANAMIKA TILLMAN, DARREL ([id number]), assistant editor MARGARET PACHECO ([id number]) on 10/01/2023 9:49:33 AM Referred By: Confirmed By:PAYAL WILLSON MD
--- NOTE | 2023-09-28 20:30 | CT_ITS ---
INDICATION: AMS EXAMINATION: CT BRAIN - CT Head or Brain W/O Contrast Injection TECHNIQUE: Serial CT axial images were obtained of the head without intravenous contrast. A radiation dose optimization technique was used for this scan. COMPARISON:Brain MRI and Head CT 08/16/2023. Findings: Serial CT axial images of the head without contrast. BRAIN PARENCHYMA: Again is noted large 3 cm mass containing few calcifications with surrounding edema of the midline anterior fossa skull base. Ventricular size is unchanged. Diffuse periventricular hypoattenuation likely chronic white matter ischemic changes. Moderate diffuse volume loss. No evidence of intraparenchymal hemorrhage or hyperattenuating extra-axial fluid collection. VASCULAR STRUCTURES: Atherosclerotic vascular calcifications. BONES: Paranasal sinuses are clear. SCALP/REMAINING SOFT TISSUES: Unremarkable. ASPECTS Score for Acute Strokes, if applicable: 10 CT/Brain/Head without Contrast IMPRESSION: Again is noted large 3 cm mass containing few calcifications with surrounding edema of the midline anterior fossa skull base. Ventricular size is unchanged. No acute intracranial hemorrhage in this noncontrast head CT. Electronically Signed: Urban Gómez MD at 21:38 EDT ,
--- NOTE | 2023-09-28 20:33 | EX.ED.DYSGE1 ---
HPI History of Present Illness Chief Complaint: Alt LOC Informant: EMS and SNF Narrative Narrative: Patient brought in via EMS from [facility] secondary to altered level consciousness. They report the patient has been more tired over the past couple of days. At 7 PM this evening they found her unresponsive in her bed. Her O2 sat was 84% on room air. Patient was admitted to the hospital in early August with altered mentation/confusion. She has baseline dementia and was found to have a new brain mass. Fine with that time did not want aggressive measures taken and she has been in the extended care facility since that time. On arrival patient will answer some questions and is spontaneously moving all 4 extremities. Her temperature is 101 axillary. [facility] Medical History Dementia Chronic systolic (congestive) heart failure Seizure CVA (cerebral vascular accident) Atherosclerotic heart disease of [place] coronary artery without angina pectoris Essential hypertension Concussion Fall SDH (subdural hematoma) Debility Right arm pain Stroke Cardiomyopathy HLD (hyperlipidemia) CAD (coronary artery disease) Abnormal ECG COPD (chronic obstructive pulmonary disease) Home Medications ?Medication ?Instructions ?Recorded ?Last Taken ?Type donepezil 5 mg tablet 5 mg PO QHS 12/02/17 Unknown Rx atorvastatin 10 mg tablet 10 mg PO DAILY cholesterol 08/17/21 Unknown History diclofenac sodium 1 % topical gel 1 ea topical 4X/DAY pain arthritis 08/17/21 Unknown History (Voltaren Arthritis Pain) clopidogrel 75 mg tablet (Plavix) 75 mg PO DAILY antiplatlet 11/28/21 Unknown History amitriptyline 50 mg tablet 50 mg PO DAILY 08/16/23 Unknown History famotidine 40 mg tablet 40 mg PO DAILY 08/16/23 Unknown History ipratropium bromide 42 mcg (0.06 2 spray intranasal 4X/DAY PRN PRN 08/16/23 Unknown History %) nasal spray allergy symptoms levocetirizine 5 mg tablet 5 mg PO DAILY 08/16/23 Unknown History pantoprazole 40 mg tablet,delayed 40 mg PO DAILY 08/16/23 Unknown History release albuterol sulfate 90 mcg/actuation 2 puff inhalation Q6H PRN sob 08/18/23 Unknown History aerosol inhaler wheezes Allergy/AdvReac Type Severity Reaction Status Date / Time Sulfa (Sulfonamide Allergy Severe Hives Verified 09/28/23 20:09 Antibiotics) gabapentin AdvReac PT UNABLE Verified 09/28/23 20:09 TO RESPOND-NEEDS F/U zolpidem (From Ambien) AdvReac Unknown Verified 09/28/23 20:09 Family History Father Myocardial infarction, Onset Age: 75 Surgical History History of spinal fusion History of left heart catheterization (LHC) (~05/23/06) Social History housing: house Smoking Status: Former smoker alcohol intake: current details: occasional ROS ROS ED Review of Systems ROS Unobtainable: due to mental status EXAM Physical Exam Narrative Exam Narrative: Patient rolling to her right side when I enter the room. She will respond to her name. She will spontaneously move all 4 extremities. When I asked her if she is having any pain she answers no. Const Vital Signs: 09/28/23 20:11 09/28/23 20:15 09/28/23 20:54 Temperature 101 F H 101 F H Temperature Source Axillary Axillary Pulse Rate 112 H 111 H Respiratory Rate 20 H 20 H Blood Pressure 114/43 L 114/43 L Blood Pressure Mean 66 66 Pulse Ox 100 100 91 Oxygen Delivery Method Nasal Cannula Nasal Cannula Room Air Oxygen Flow Rate (L/min) 5 Positive cachectic General Appearance ED: cachectic Nutritional Appearance: cachectic HEENT Reports moist mucous membranes Chest Wall inspection of chest normal and palpation of chest normal Resp normal respiratory effort Resp Narrative: Coarse breath sounds bilaterally. Cardio regular rhythm Rate: tachycardic GI non-tender Palpation: soft Extremity normal to inspection Neuro Neuro Narrative: Spontaneous movement of all 4 extremities. Patient will answer some questions. Skin no rashes or lesions noted MDM MDM MDM Narrative Medical decision making narrative: IV line established. Blood and urine cultures obtained. Patient be given rectal Tylenol for fever control. Labwork obtained to evaluate for leukocytosis, anemia, and electrolyte derangement. Urinalysis obtained to evaluate for infection/hematuria. CT scan of the head will be obtained given her altered mental status with recent diagnosis of a brain mass. Chest x-ray obtained to evaluate for acute lung pathology, cardiac size, or mediastinal abnormality. Shortly after arrival nursing staff did speak to patient's daughter on the phone. She has 2 daughters that are out of state and a son who lives locally but is unable to come up to the hospital at this time. Daughter did reiterate the patient is DNR Comfort Care arrest with no intubation and just asked for phone calls to update on her workup. History & Record Review Additional record(s) reviewed:: Prior inpatient record, Prior ED visit and Prior labs Lab Data Attestation: I reviewed the patient's lab results. Labs: Laboratory Results - last 24 hr 09/28/23 09/28/23 20:25 20:48 WBC 20.5 H RBC 4.08 L Hgb 10.7 L Hct 34.3 L MCV 84.1 MCH 26.2 L MCHC 31.2 L RDW Std Deviation 40.6 RDW Coeff of Karine 13.2 Plt Count 326 MPV 9.7 Immature Gran % (Auto) 0.900 Neut % (Auto) 82.4 H Lymph % (Auto) 1.7 L [place] % (Auto) 5.6 Eos % (Auto) 9.2 H Baso % (Auto) 0.2 Absolute Neuts (auto) 16.9 H Absolute Lymphs (auto) 0.34 L Nucleated RBC % 0 Differential Comment SEE COMMENT Platelet Estimate ADEQUATE RBC Morphology NORM C+C Anisocytosis RARE Ovalocytes RARE PT 13.7 INR 1.0 APTT 28.0 Sodium 140 Potassium 3.6 Chloride 106 Carbon Dioxide 28.0 Anion Gap 6 BUN 24 H Creatinine 0.98 Estim Creat Clear Calc 36.06 Est GFR (MDRD) Af Amer 69 Est GFR (MDRD) Non-Af 57 L BUN/Creatinine Ratio 24.5 H Glucose 120 H Lactic Acid 1.3 Calcium 9.1 Total Bilirubin 0.50 AST 23 ALT 17 Alkaline Phosphatase 90 Total Protein 6.4 Albumin 3.1 L Globulin 3.3 Albumin/Globulin Ratio 0.9 Urine Color Yellow Urine Clarity Clear Urine pH 6.5 Ur Specific [place] 1.015 Urine Protein 15 H Urine Glucose (UA) Normal Urine Ketones Negative Urine Occult Blood 10 H Urine Nitrite Negative Urine Bilirubin Negative Urine Urobilinogen Normal Ur Leukocyte Esterase 100 H Urine RBC 0 SEEN Urine WBC 0-5 SEEN Ur Squamous Epith Cells 0 SEEN Urine Bacteria 0 SEEN Urine Mucus 0 SEEN Radiography Chest X-Ray - ED: 1 View, Read by ED Physician and Right Infiltrate Diagnostic Testing: Clinical Impression(s) from Imaging Studies Brain CT 09/28/23 20:30 IMPRESSION: Again is noted large 3 cm mass containing few calcifications with surrounding edema of the midline anterior fossa skull base. Ventricular size is unchanged. No acute intracranial hemorrhage in this noncontrast head CT. Electronically Signed: Urban Gómez MD at 21:38 EDT , EKG Initial EKG: Attestation: I personally reviewed and interpreted this EKG as follows: Interpretation: Sinus Tachycardia (Sinus tachycardia at [address].) Treatment and Re-Evaluation :: CBC was a white count of 20.5 with 82% neutrophils. Hemoglobin is 10.7. Chemistry studies reveal a BUN of 24 with normal creatinine 0.98. Glucose is 120. LFTs are unremarkable. Lactic acid is normal at 1.3. Urinalysis reveals no evidence of infection. Portable chest x-ray per my interpretation reveals multiple right-sided infiltrates consistent with aspiration. EKG is sinus tachycardia with no evidence of ischemia. Blood and urine cultures have been sent. I did discuss case with hospitalist. I do have concern that she may have had a seizure and this is certainly possible given the brain mass that she was recently diagnosed with. Patient be given Unasyn for her pneumonia. We will also give her a gram of Keppra as well as 10 mg of IV Decadron. Patient be admitted to PCU for close monitoring. Discharge Plan Triage Chief Complaint: Alt LOC ED Provider: Nathalie Enriquez Dx/Rx/DC Orders Clinical Impression: Aspiration pneumonia, Brain mass Primary Care Provider: Asad Hamlin Disposition Disposition: Acute Care [facility]
[2023-09-28] MEDS: 0.9% Normal Saline (1000mL) 1,000 ML 150 ML IV (20:49)
[2023-09-28] MEDS: Acetaminophen 650 MG Suppository RC (20:49)
[2023-09-28 20:53] LABS: Absolute Lymphocyte Count 0.34 X10^3/uL (0.83-4.51); Absolute Neutrophil Count 16.9 X10^3/uL (2.0-7.7); Basophil# 0.05 X10^3/uL; Basophil% 0.2 % (0-1); Eosinophil# 1.88 X10^3/uL; Eosinophils% 9.2 % (0-5); Hematocrit 34.3 % (37-47); Hemoglobin 10.7 g/dL (12.0-15.0); Lymphocyte # 0.34 X10^3/ul (0.83-4.51); Lymphocyte % 1.7 % (19-41); Mean Corp Hgb Conc 31.2 g/dL (32-36); Mean Corpuscular Hgb 26.2 pg (27.0-32.0); Mean Corpuscular Volume 84.1 fL (81-99); Mean Platelet Vol. 9.7 fl (6.2-12.0); Monocyte# 1.14 X10^3/uL; Monocyte% 5.6 % (0-10); NRBC Flagged by Analyzer 0 % (0-5); Neutrophil # 16.87 X10^3/uL (2.7-7.7); Neutrophil % 82.4 % (47-70); POSITIVE DIFFERENTIAL YES; POSITIVE MORPHOLOGY YES; Platelet Count 326 K/mm3 (150-450); RBC Distribution Width CV 13.2 % (11.6-14.6); RBC Distribution Width SD 40.6 fl (35.1-43.9); Red Blood Count 4.08 M/mm3 (4.2-5.4); White Blood Count 20.5 K/mm3 (4.4-11.0)
[2023-09-28 20:54] VITALS: O2SAT 91
[2023-09-28 21:04] LABS: Bacteria 0 SEEN /hpf (None Seen); Mucous, Urine 0 SEEN /hpf (<or=2+); Red Blood Cells-Urine 0 SEEN /hpf (0-5); Squamous Epithelial Cells - UA 0 SEEN /hpf (5-10)
--- NOTE | 2023-09-28 21:05 | RAD_ITS ---
INDICATION: fever, alt loc EXAMINATION/TECHNIQUE: X-RAY - XR Chest 1 View COMPARISON: 08/16/2023 chest radiograph. Findings: Single frontal view of the chest. LUNG PARENCHYMA: Patchy and nodular diffuse right lung airspace disease. PLEURA: No pleural effusion. No pneumothorax. HEART/[place]: Cardiomediastinal silhouette is unremarkable. BONES: Severe right shoulder degenerative change. S-shaped thoracolumbar scoliosis again noted. RAD/Chest 1 View (Portable) IMPRESSION: Patchy and nodular diffuse right lung airspace disease, to include pneumonia. Recommend follow-up to resolution as metastatic process is not excluded. Electronically Signed: Urban Gómez MD at 22:53 EDT ,
[2023-09-28 21:06] LABS: ALB/GLOB Ratio 0.9 RATIO (0.9-2.4); AST(SGOT) 23 U/L (15-37); Alanine Aminotransfer ALT/SGPT 17 U/L (13-56); Albumin, Serum 3.1 g/dL (3.2-5.0); Alkaline Phosphatase 90 U/L (45-117); Anion Gap 6 (5-15); BUN 24 mg/dL (7-18); BUN/Creat Ratio 24.5 RATIO (10-20); Calcium,Total 9.1 mg/dL (8.5-10.1); Chloride 106 mmol/L (98-107); Creatinine, Serum 0.98 mg/dL (0.55-1.02); EST Glomerular Filtration Rate 57 mL/min (>60); Est Glom Filt Rate - Afr Amer 69 mL/min (>60); Estimated Creatinine Clearance 36.06 ml/min; Globulin 3.3 g/dL (2.2-4.2); Glucose 120 mg/dL (74-106); Potassium 3.6 mmol/L (3.5-5.1); Protein, Total 6.4 g/dL (6.4-8.2); Prothrombin Time (Protime)PT. 13.7 SECONDS (11.7-14.9); Sodium Level 140 mmol/L (136-145)
[2023-09-28 21:08] LABS: Lactic Acid 1.3 mmol/L (0.4-1.9)
[2023-09-28 21:09] LABS: Color, Urine Yellow (Yellow); Glucose, Dipstick Normal (Normal); Ketone-Dipstick Negative (Negative); Leukocyte Esterase-Dipstick 100 /ul (Negative); Nitrite-Dipstick Negative (Negative); Occult Blood-Urine 10 /ul (Negative); Protein-Dipstick 15 mg/dl (Negative); Specific Gravity, Urine 1.015 (1.002-1.030); Urine Bilirubin Dipstick Negative (Negative); Urine Clarity Clear (Clear); Urine Urobilinogen Normal (Normal); Urine pH 6.5 (5.0 - 8.0)
[2023-09-28 21:11] LABS: Differential Indicated SCAN CRITERIA MET
[2023-09-28 21:25] LABS: White Blood Cells 0-5 SEEN /hpf (0-5)
[2023-09-28 21:27] LABS: Anisocytosis RARE; Ovalocyte RARE; Platelet Estimate ADEQUATE (ADEQ); Red Cell Morphology NORM C+C NORMAL (NORM C&C)
[2023-09-28 22:00] VITALS: BP 106/61; PULSE 105; RESP 20; O2SAT 93
--- NOTE | 2023-09-28 22:05 | PCM.HP.STD ---
HPI - General General Date of Admission: 09/28/23 Date of Service: 09/28/23 Chief Complaint: Unresponsive, hypoxic. 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 Seizure disorder, CAD, HF with recovered EF, HTN, HLD, GERD, Allergic rhinitis, Dementia unclear type with unclear behavioral disturbance history, most recent discharge 08/19/23 following evaluation and treatment of altered mental status with workup/evaluation notable for brain mass favoring meningioma with vasogenic edema with declined neurosurgery evaluation and transfer with supportive management request with deferral of steroids given concern for potentially worsening of her delirium and underlying dementia who now represents to the [facility] ED on 09/28/23 with history of altered level of consciousness reportedly per facility more tired over the last several days found at approximately 7 PM on day of presentation unresponsive in her bed with oxygenation down to 84% prompting EMS evaluation noted upon arrival to be answering some questions and moving all extremities however she had an axillary temperature elevated to 101.Workup in the ED included T101, heart rate 112, BP 114/43, respiratory rate 20, 91% on room air, CBC with WBC 20.5, hemoglobin 10.7, MCV 84.1, platelet 326 with significant left shift and lymphopenia, unremarkable coags, CMP with BUN/creatinine 24/0.98, GFR 57, glucose 120, hepatic profile not marked appearing, lactic acid 1.3, chest x-ray with significant right-sided infiltrates concerning for aspiration with final read pending upon evaluation of patient, CT brain with large 3 cm mass continued to calcifications with surrounding edema of the midline anterior fossa skull base with ventricular size unchanged with no evidence of any acute intracranial hemorrhage, urinalysis not marked appearing with urine protein 15, occult blood 10, negative nitrite, leukocyte Estrace 100 with no marked urine WBCs or urine bacteria identified, blood culture x 2 pending per ED, urine culture pending per ED, EKG with sinus tachycardia with no acute evidence of ischemia. In the ED patient administered maintenance IV fluids and rectal Tylenol 650 mg x 1. [facility] Medical History Dementia Chronic systolic (congestive) heart failure Seizure CVA (cerebral vascular accident) Atherosclerotic heart disease of [place] coronary artery without angina pectoris Essential hypertension Concussion Fall SDH (subdural hematoma) Debility Right arm pain Stroke Cardiomyopathy HLD (hyperlipidemia) CAD (coronary artery disease) Abnormal ECG COPD (chronic obstructive pulmonary disease) Home Medications ?Medication ?Instructions ?Recorded ?Last Taken ?Type donepezil 5 mg tablet 5 mg PO QHS 12/02/17 Unknown Rx atorvastatin 10 mg tablet 10 mg PO DAILY cholesterol 08/17/21 Unknown History diclofenac sodium 1 % topical gel 1 ea topical 4X/DAY pain arthritis 08/17/21 Unknown History (Voltaren Arthritis Pain) clopidogrel 75 mg tablet (Plavix) 75 mg PO DAILY antiplatlet 11/28/21 Unknown History amitriptyline 50 mg tablet 50 mg PO DAILY 08/16/23 Unknown History famotidine 40 mg tablet 40 mg PO DAILY 08/16/23 Unknown History ipratropium bromide 42 mcg (0.06 2 spray intranasal 4X/DAY PRN PRN 08/16/23 Unknown History %) nasal spray allergy symptoms levocetirizine 5 mg tablet 5 mg PO DAILY 08/16/23 Unknown History pantoprazole 40 mg tablet,delayed 40 mg PO DAILY 08/16/23 Unknown History release albuterol sulfate 90 mcg/actuation 2 puff inhalation Q6H PRN sob 08/18/23 Unknown History aerosol inhaler wheezes Allergy/AdvReac Type Severity Reaction Status Date / Time Sulfa (Sulfonamide Allergy Severe Hives Verified 09/28/23 20:09 Antibiotics) gabapentin AdvReac PT UNABLE Verified 09/28/23 20:09 TO RESPOND-NEEDS F/U zolpidem (From Ambien) AdvReac Unknown Verified 09/28/23 20:09 Family History Father Myocardial infarction, Onset Age: 75 Surgical History History of spinal fusion History of left heart catheterization (LHC) (~05/23/06) Social History (Updated 09/28/23 @ 22:[address] Nikole Mancuso MD) housing: assisted living facility Smoking Status: Former smoker alcohol intake: current details: occasional substance use type: does not use ROS Review of Systems ROS Unobtainable: due to encephalopathy Vital Signs Vital Signs Vital Signs: 09/28/23 20:11 09/28/23 20:15 09/28/23 20:54 Temperature 101 F H 101 F H Temperature Source Axillary Axillary Pulse Rate 112 H 111 H Respiratory Rate 20 H 20 H Blood Pressure 114/43 L 114/43 L Blood Pressure Mean 66 66 Pulse Ox 100 100 91 Oxygen Delivery Method Nasal Cannula Nasal Cannula Room Air Oxygen Flow Rate (L/min) 5 Weight Weight: 120 lb Body Mass Index (BMI) 18.2 Physical Exam Narrative Physical Examination: General: Patient will awaken and become more alert but is unable to clearly answer any questions, mumbling, will follow some commands but is completely lethargic, no obvious distress. Skin: Normal color, normal turgor, no icterus, no cyanosis except significant very staged ecchymoses especially to upper and lower extremities HEENT: AT/NC, EOM appear intact but difficult as she is not following commands well, PERRLA, dry MM, slight mild flattening of the left nasal labial fold of unclear chronicity, no carotid bruits or JVD noted. Lungs: Significantly diminished, greater bases, mildly coarse and rhonchorous right base, mildly increased respiratory rate but no distress, no wheezing. Heart: Tachycardic with regular rhythm; no gallop, rub audible. Abdomen: Soft, thin cachectic appearing habitus, NTTP, ND, distant BS, no appreciated HSM. Extremities: No cyanosis, no clubbing, no marked peripheral edema, evidence of muscle and fat loss. Neurological: Patient will awaken and become more alert but is unable to clearly answer any questions, mumbling, will follow some commands but is completely lethargic, no obvious distress, cognitive function not baseline intact; pupils equally reactive to light and accommodation, cranial nerves difficult to assess but appear grossly normal except a mild left-sided nasolabial flattening but this is of unclear chronicity, still spontaneously moving all 4 extremities, strength difficult to assess but severely globally decreased at this time Psychiatric: Affect appears fatigued, mumbling, no acute evidence of depressive or anxiety feelings. Results Lab / Micro Data 09/28/23 20:25 09/28/23 20:25 Labs: Laboratory Results - last 24 hr 09/28/23 20:25: WBC 20.5 H, RBC 4.08 L, Hgb 10.7 L, Hct 34.3 L, MCV 84.1, MCH 26.2 L, MCHC 31.2 L, RDW Std Deviation 40.6, RDW Coeff of Karine 13.2, Plt Count 326, MPV 9.7, Immature Gran % (Auto) 0.900, Neut % (Auto) 82.4 H, Lymph % (Auto) 1.7 L, [place] % (Auto) 5.6, Eos % (Auto) 9.2 H, Baso % (Auto) 0.2, Absolute Neuts (auto) 16.9 H, Absolute Lymphs (auto) 0.34 L, Nucleated RBC % 0, Differential Comment SEE COMMENT, Platelet Estimate ADEQUATE, RBC Morphology NORM C+C, Anisocytosis RARE, Ovalocytes RARE, PT 13.7, INR 1.0, APTT 28.0, Sodium 140, Potassium 3.6, Chloride 106, Carbon Dioxide 28.0, Anion Gap 6, BUN 24 H, Creatinine 0.98, Estim Creat Clear Calc 36.06, Est GFR (MDRD) Af Amer 69, Est GFR (MDRD) Non-Af 57 L, BUN/Creatinine Ratio 24.5 H, Glucose 120 H, Lactic Acid 1.3, Calcium 9.1, Total Bilirubin 0.50, AST 23, ALT 17, Alkaline Phosphatase 90, Total Protein 6.4, Albumin 3.1 L, Globulin 3.3, Albumin/Globulin Ratio 0.9 09/28/23 20:48: Urine Color Yellow, Urine Clarity Clear, Urine pH 6.5, Ur Specific [place] 1.015, Urine Protein 15 H, Urine Glucose (UA) Normal, Urine Ketones Negative, Urine Occult Blood 10 H, Urine Nitrite Negative, Urine Bilirubin Negative, Urine Urobilinogen Normal, Ur Leukocyte Esterase 100 H, Urine RBC 0 SEEN, Urine WBC 0-5 SEEN, Ur Squamous Epith Cells 0 SEEN, Urine Bacteria 0 SEEN, Urine Mucus 0 SEEN Imaging Radiology Impression Brain CT 09/28/23 20:30 IMPRESSION: Again is noted large 3 cm mass containing few calcifications with surrounding edema of the midline anterior fossa skull base. Ventricular size is unchanged. No acute intracranial hemorrhage in this noncontrast head CT. 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 Seizure disorder, CAD, HF with recovered EF, HTN, HLD, GERD, Allergic rhinitis, Dementia unclear type with unclear behavioral disturbance history, most recent discharge 08/19/23 following evaluation and treatment of altered mental status with workup/evaluation notable for brain mass favoring meningioma with vasogenic edema with declined neurosurgery evaluation and transfer with supportive management request with deferral of steroids given concern for potentially worsening of her delirium and underlying dementia who now represents to the [facility] ED on 09/28/23 with history of altered level of consciousness reportedly per facility more tired over the last several days found at approximately 7 PM on day of presentation unresponsive in her bed with oxygenation down to 84% prompting EMS evaluation noted upon arrival to be answering some questions and moving all extremities however she had an axillary temperature elevated to 101. #1. Altered status, Acute Encephalopathy w/ unresponsive status secondary to Acute Hypoxia secondary to Acute High Suspicion Aspiration Pneumonia complicated by #2 as noted with possible seizure activity contributing: Will admit to PCU, maintain on oxygen with wean as tolerated to room air, ATC budeonside therapies, PRN albuterol, maintained on IV Unasyn with MRSA screen requested and if positive we will certainly add vancomycin additionally, HOB, IS parameters w/ pending sputum cultures, full respiratory viral panel and urine antigens. Also as noted below some concern that patient may be having seizure activity given brain mass with edema thus we will continue Keppra and Decadron at this time pending EEG and neurology evaluation additionally. Bld cx x 2 obtained in the ED. PT/OT/ST/CM consulted for discharge planning. #2. Recent diagnosis brain mass, favored meningioma with vasogenic edema: Diagnosed 08/2023 admission with encephalopathy at that time, family had deferred transfer for neurology and neurosurgery evaluation, deferred any treatment, steroids also avoided at that time as concern would contribute to worsening encephalopathy. Current presentation repeat CT brain with large 3 cm mass continued to calcifications with surrounding edema of the midline anterior fossa skull base with ventricular size unchanged with no evidence of any acute intracranial hemorrhage. As noted number 1 but from discussion with staff at facility patient has been less interactive and less responsive therefore possibly not just infectious therefore as discussed with ED physician patient was administered a loading dose of Keppra which will also be continued and was given a loading dose of Decadron which will also be continued with EEG ordered and neurology consultation also requested. #3. History CVA: Patient on Plavix therapy which during previous admission had been held temporarily but was resumed upon discharge. Once oral intake safe will continue Plavix, statin, not on hypertensive regimen with low normal BP, previously been on low-dose Coreg but this was discontinued during prior admission. #4. History SDH: Noted to be associated with mechanical fall, resolved, remote. #5. Dementia unclear type with unclear behavioral disturbance history: Complicates presentation. Once oral intake safe will continue home donepezil, maintain on fall and aspiration precautions, PT/OT/case management consulted for discharge planning. #6. Chronic COPD: Will maintain on oxygen with wean as tolerated to room air given presentation as noted above, continue ATC budesonide therapy, PRN albuterol, HOB, IS parameters. #7. CAD: Patient on Plavix therapy which during previous admission had been held temporarily but was resumed upon discharge. Once oral intake safe will continue Plavix, statin, not on beta-jessica nor JOSEP inhibitor/ARB given low BP, previously been on low-dose Coreg but this was discontinued during prior admission also. #8. Chronic Kidney Disease Stage III primarily per review of GFR trending but vacillates thus certainly could be stage II but uncertain: Admission BUN/Cr 24/0.98, GFR 57, baseline renal function 0.7-0.9 primarily, GFR baseline previously has ranged 50-70 but has vacillated thus unclear if stage II versus stage III, repeat BMP in AM to further elucidate. #9. Chronic normocytic anemia: Admission hemoglobin 10.7, MCV 84.1, prior baseline more recently 10-11, stable, continue to trend. #10. HF with recovered EF: Noted history of HF with recovered EF with nonischemic cardiomyopathy, patient on Plavix therapy which during previous admission had been held temporarily but was resumed upon discharge. Once oral intake safe will continue Plavix, statin, not on beta-jessica nor JOSEP inhibitor/ARB given low BP, previously been on low-dose Coreg but this was discontinued during prior admission also. #11. Hypertension: Per current list does not appear to be on regimen although had been on low-dose Coreg but this was discontinued during prior admission, BP low normal, will have PRN hydralazine. #12. Hyperlipidemia: Once oral intake stable continue home statin therapy. #13. Allergic rhinitis: Once oral intake safe will continue home levocetirizine regimen. #14. Former tobacco use: Encourage continued tobacco cessation. #15. GERD: Once oral intake safe will utilize home oral PPI, IV PPI in interim. #16. DVT prophylaxis: SCDs. Defer any chemoprophylaxis given ongoing issues with underlying brain mass with deferred workup per family and patient. #17. CODE status: DNR-CCA, no intubation, no aggressive measures including no central line or pressor therapies, no transfer for neurology/neurosurgery evaluation with preference to defer brain mass work-up. Given patient presentation with readmission do suspect that patient will continue to decline and would be highly appropriate for consideration of hospice likely in the near future. Charges/Coding Visit Charges Inpatient E&M: 24095 Init Hosp L3
[2023-09-28] MEDS: dexAMETHasone 10 MG/ML Vial IV (22:07)
[2023-09-28] MEDS: levETIRAcetam IV 1,000 MG/100 ML BAG 400 MG IV (22:14)
[2023-09-28 22:15] VITALS: BP 93/56; PULSE 105; RESP 25; TEMP -6.6; TEMP 20; O2SAT 97
[2023-09-28 22:33] LABS: Phosphorus 1.7 mg/dL (2.5-4.9)
[2023-09-28 22:54] VITALS: BP 95/64; PULSE 99; RESP 24; TEMP 37.2; O2SAT 92
[2023-09-28] MEDS: 0.9% Normal Saline (1000mL) 1,000 ML 100 ML IV (23:30)
[2023-09-28] MEDS: Ampicillin/Sulbactam 3 GM in 0.9% Normal Saline (100mL MB+) 100 ML IV (23:35)
[2023-09-29] MEDS: Pantoprazole Sodium 40 MG in 0.9% Normal Saline (100mL MB+) 100 ML 330 MG IV ×3 (00:01→21:39)
[2023-09-29 04:55] VITALS: BP 115/73; PULSE 85; RESP 20; TEMP 35.8; O2SAT 97
[2023-09-29] MEDS: dexAMETHasone 4 MG/ML Vial IV ×2 (05:51→11:31)
[2023-09-29] MEDS: Ampicillin/Sulbactam 3 GM in 0.9% Normal Saline (100mL MB+) 100 ML IV ×3 (05:51→17:34)
[2023-09-29 06:24] LABS: Absolute Lymphocyte Count 0.74 X10^3/uL (0.83-4.51); Absolute Neutrophil Count 26.7 X10^3/uL (2.0-7.7); Basophil# 0.04 X10^3/uL; Basophil% 0.1 % (0-1); Hematocrit 33.8 % (37-47); Hemoglobin 10.3 g/dL (12.0-15.0); Lymphocyte # 0.74 X10^3/ul (0.83-4.51); Lymphocyte % 2.6 % (19-41); Mean Corp Hgb Conc 30.5 g/dL (32-36); Mean Corpuscular Hgb 25.9 pg (27.0-32.0); Mean Corpuscular Volume 85.1 fL (81-99); Mean Platelet Vol. 9.8 fl (6.2-12.0); Monocyte# 0.57 X10^3/uL; NRBC Flagged by Analyzer 0 % (0-5); POSITIVE DIFFERENTIAL YES; Platelet Count 307 K/mm3 (150-450); RBC Distribution Width CV 13.2 % (11.6-14.6); Red Blood Count 3.97 M/mm3 (4.2-5.4); White Blood Count 28.4 K/mm3 (4.4-11.0)
[2023-09-29 06:34] LABS: Differential Indicated SCAN CRITERIA MET
[2023-09-29 07:16] LABS: ALB/GLOB Ratio 0.8 RATIO (0.9-2.4); AST(SGOT) 23 U/L (15-37); Alanine Aminotransfer ALT/SGPT 15 U/L (13-56); Albumin, Serum 2.6 g/dL (3.2-5.0); Alkaline Phosphatase 83 U/L (45-117); Anion Gap 6 (5-15); BUN 24 mg/dL (7-18); BUN/Creat Ratio 27.9 RATIO (10-20); Calcium,Total 8.8 mg/dL (8.5-10.1); Chloride 109 mmol/L (98-107); Creatinine, Serum 0.86 mg/dL (0.55-1.02); EST Glomerular Filtration Rate 66 mL/min (>60); Est Glom Filt Rate - Afr Amer 80 mL/min (>60); Estimated Creatinine Clearance 41.07 ml/min; Globulin 3.1 g/dL (2.2-4.2); Glucose 143 mg/dL (74-106); Potassium 3.9 mmol/L (3.5-5.1); Protein, Total 5.7 g/dL (6.4-8.2); Sodium Level 139 mmol/L (136-145)
[2023-09-29 08:09] VITALS: O2SAT 98
--- NOTE | 2023-09-29 08:10 | PN.HOSP_ITS ---
Reason for Visit Reason for Visit: Diagnoses Pneumonitis due to inhalation of food and vomit (09/28/23) Subjective Subjective Patient tore off the EEG leads for being placed. Objective Data Objective Data Vital Signs: Vital Signs Temp Pulse Resp BP Pulse Ox O2 Del Method O2 Flow Rate 35.8 C L 85 20 H 115/73 98 Room Air 5 09/29/23 04:55 09/29/23 04:55 09/29/23 04:55 09/29/23 04:55 09/29/23 08:09 09/29/23 08:09 09/28/23 20:15 Oxygen Flow Rate (L/min) 5 Oxygen Delivery Method Room Air Weight: 54.4 kg Body Mass Index (BMI) 18.2 Intake & Output: Intake and Output for Last 24 Hours 09/27/23 09/28/23 09/29/23 23:59 23:59 23:59 Intake Total 505 / 505 334 / 334 Balance 505 / 505 334 / 334 Lab / Micro Data 09/29/23 05:54 09/29/23 05:54 Labs: Laboratory Results - last 24 hr 09/28/23 20:25: WBC 20.5 H, RBC 4.08 L, Hgb 10.7 L, Hct 34.3 L, MCV 84.1, MCH 26.2 L, MCHC 31.2 L, RDW Std Deviation 40.6, RDW Coeff of Karine 13.2, Plt Count 326, MPV 9.7, Immature Gran % (Auto) 0.900, Neut % (Auto) 82.4 H, Lymph % (Auto) 1.7 L, [place] % (Auto) 5.6, Eos % (Auto) 9.2 H, Baso % (Auto) 0.2, Absolute Neuts (auto) 16.9 H, Absolute Lymphs (auto) 0.34 L, Nucleated RBC % 0, Differential Comment SEE COMMENT, Platelet Estimate ADEQUATE, RBC Morphology NORM C+C, Anisocytosis RARE, Ovalocytes RARE, PT 13.7, INR 1.0, APTT 28.0, Sodium 140, Potassium 3.6, Chloride 106, Carbon Dioxide 28.0, Anion Gap 6, BUN 24 H, Creatinine 0.98, Estim Creat Clear Calc 36.06, Est GFR (MDRD) Af Amer 69, Est GFR (MDRD) Non-Af 57 L, BUN/Creatinine Ratio 24.5 H, Glucose 120 H, Lactic Acid 1.3, Calcium 9.1, Phosphorus 1.7 L, Magnesium 2.0, Total Bilirubin 0.50, AST 23, ALT 17, Alkaline Phosphatase 90, Total Protein 6.4, Albumin 3.1 L, Globulin 3.3, Albumin/Globulin Ratio 0.9 09/28/23 20:48: Urine Color Yellow, Urine Clarity Clear, Urine pH 6.5, Ur Specific [place] 1.015, Urine Protein 15 H, Urine Glucose (UA) Normal, Urine Ketones Negative, Urine Occult Blood 10 H, Urine Nitrite Negative, Urine Bilirubin Negative, Urine Urobilinogen Normal, Ur Leukocyte Esterase 100 H, Urine RBC 0 SEEN, Urine WBC 0-5 SEEN, Ur Squamous Epith Cells 0 SEEN, Urine Bacteria 0 SEEN, Urine Mucus 0 SEEN 09/29/23 05:54: WBC 28.4 H, RBC 3.97 L, Hgb 10.3 L, Hct 33.8 L, MCV 85.1, MCH 25.9 L, MCHC 30.5 L, RDW Std Deviation 41.0, RDW Coeff of Karine 13.2, Plt Count 307, MPV 9.8, Immature Gran % (Auto) 1.300 H, Neut % (Auto) 94.0 H, Lymph % (Auto) 2.6 L, [place] % (Auto) 2.0, Eos % (Auto) 0.0, Baso % (Auto) 0.1, Absolute Neuts (auto) 26.7 H, Absolute Lymphs (auto) 0.74 L, Nucleated RBC % 0, Differential Comment , Sodium 139, Potassium 3.9, Chloride 109 H, Carbon Dioxide 24.0, Anion Gap 6, BUN 24 H, Creatinine 0.86, Estim Creat Clear Calc 41.07, Est GFR (MDRD) Af Amer 80, Est GFR (MDRD) Non-Af 66, BUN/Creatinine Ratio 27.9 H, G lucose 143 H, Calcium 8.8, Total Bilirubin 0.50, AST 23, ALT 15, Alkaline Phosphatase 83, Total Protein 5.7 L, Albumin 2.6 L, Globulin 3.1, A lbumin/Globulin Ratio 0.8 L Micro: Microbiology 09/28/23 20:48 Urine Catheter - Catheter Legionella Antigen - Final 09/28/23 20:48 Urine Catheter - Catheter Streptococcus pneumoniae Antigen (M - Final 09/29/23 00:18 Mucosa - Nasopharyngeal Respiratory Panel (PCR) - Final Radiography Diagnostic Testing: Radiology Impression Brain CT 09/28/23 20:30 IMPRESSION: Again is noted large 3 cm mass containing few calcifications with surrounding edema of the midline anterior fossa skull base. Ventricular size is unchanged. No acute intracranial hemorrhage in this noncontrast head CT. Electronically Signed: Urban Gómez MD at 21:38 EDT , Chest X-Ray 09/28/23 21:05 IMPRESSION: Patchy and nodular diffuse right lung airspace disease, to include pneumonia. Recommend follow-up to resolution as metastatic process is not excluded. Electronically Signed: Urban Gómez MD at 22:53 EDT , Physical Exam Const Constitutional Narrative: Confused. Does open eyes to voice. Resp normal respiratory effort, no retractions, no use of accessory muscles and clear to auscultation bilaterally Cardio regular rate, regular rhythm, S1 normal heart sound and S2 normal heart sound GI normal to inspection, nondistended, normoactive bowel sounds, soft to palpation, non-tender and non-distended Neuro Sensorium / Orientation: awake and alert Assessment & Plan Assessment/Plan (1) Aspiration pneumonia: PLAN: Plan Acute metabolic encephalopathy * probably 2/2 acute respiratory failure and pneumonia. Questionable seizure activity, though pt is higher risk given brain mass. Therefore, cannot rule out post ictal * avoid potentiating agents. * Seen by neurology who since there is no clear epileptic activity, recommends no additional workup and no antiepileptics at this time. Pneumonia * Suspect aspiration. Chest x-ray reviewed and showed diffuse right-sided infiltrate. * Antibiotics with ampicillin/sulbactam. Brain mass * Family previously declined neurosurgery input. Recent admission. Patient had been doing well during recent admission despite the patient having edema so with her dementia, steroids were avoided. With these new events, patient is currently on IV dexamethasone. * Unclear if the vasogenic edema, which she had previously, is contributing to her encephalopathy. Will de-escalate steroid therapy as it may potentiate her encephalopathy given her underlying severe dementia. Chronic conditions: * History CVA: Continue clopidogrel * History SDH: Noted to be associated with mechanical fall, resolved, remote. * Dementia unclear type with unclear behavioral disturbance history: Complicates care and recovery * Chronic COPD: Stable not in exacerbation * CAD: Continue carvedilol * Chronic Kidney Disease Stage III stable * Chronic normocytic anemia: Stable * HF with recovered EF: Noted history of HF with recovered EF with nonischemic cardiomyopathy, patient on Plavix therapy which during previous admission had been held temporarily but was resumed upon discharge. Once oral intake safe will continue Plavix, statin, not on beta-jessica nor OJSEP inhibitor/ARB given low BP, previously been on low-dose Coreg but this was discontinued during prior admission also. * Hypertension: Per current list does not appear to be on regimen although had been on low-dose Coreg but this was discontinued during prior admission, BP low normal, will have PRN hydralazine. * hyperlipidemia: Once oral intake stable continue home statin therapy. * Allergic rhinitis: Once oral intake safe will continue home levocetirizine regimen. * Former tobacco use: Encourage continued tobacco cessation. * GERD: Once oral intake safe will utilize home oral PPI, IV PPI in interim. VTE prophylaxis: SCDs Code status: DNRCCA, DNI. Charges/Coding Visit Charges Inpatient E&M: 38150 Subs Hosp L2
[2023-09-29 09:01] LABS: M R Staph aureus DNA By PCR Negative (Negative); Probe Check PASS; Specimen Processing Control PASS
--- NOTE | 2023-09-29 09:19 | CASEMGMT ---
Patient is from [facility]. CHERYLE is familiar with patient from a recent admission. At that time Adult Protective Services (APS) was working on getting a guardian. CHERYLE called APS and left a message for Don. Patient's RN then notified CHERYLE that patient's daughter called and said patient now has a guardian. The guardian's name is Jennifer Norton and she is from [employer]. CHERYLE called [employer] and they will send guardianship papers to CHERYLE. Jennifer is out for the week. CHERYLE left a voice mail for Jennifer letting her know about patient's admission to the hospital. Marjorie Barnett CREATIVE ASSISTANT DMITRY
[2023-09-29 09:38] VITALS: BP 103/54; PULSE 84; RESP 26; TEMP 36.3; O2SAT 95
--- NOTE | 2023-09-29 09:43 | CASEMGMT ---
Addendum entered by Penelope Kim 09/29/23 09:48: Precert needed. Penelope Kim DC Planning Asst. Original Note: Discharge Planning Updates sent to [facility] via [facility]. Asked if precert is needed to return. Awaiting response. Penelope Kim DC Planning Asst.
--- NOTE | 2023-09-29 10:13 | CASEMGMT ---
SW was informed that patient does not have a guardian yet. The court date had to be rescheduled for 7-[address] could not ge a hold of one of patient's sons. Paperwork [employer] sent was just the Oath of Guardian. Patient's guardian will be Systems Testing [employer] Technician Jennifer Norton. Marjorie ANDRES
[2023-09-29 10:15] VITALS: BMI 20.7
[2023-09-29] MEDS: levETIRAcetam IV 500 MG in 0.9% Normal Saline (100mL Bag) 100 ML 420 MG IV (10:17)
--- NOTE | 2023-09-29 10:55 | NEURO.CONS ---
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 Started on Abx. Diagnosis: toxic metabolic encephalopathy, meningioma Presentation likely toxic metabolic encephalopathy. COntinue treatment of underlying infection. As far as the meningioma, this was addressed last months with family, and family opted against further surgical evaluation. She was started on Keppra prophylactically during this admission. Though risk factor for seizures with her meningioma, but given behavioral changes, and no evidence to support seizures, and presentation explained by toxic metabolic derangements, can hold off on Keppra for now unless she reveals herself to have seizures in the future. I personally attended this patient and spent a total time of 45 minutes evaluating this patient including clinical assessment, review of chart, medical history imaging, and determining appropriate treatment and workup. 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 Seizure disorder, CAD, HF with recovered EF, HTN, HLD, GERD, Allergic rhinitis, Dementia, presenting with altered mental status She was recently discharged from the hospital early following evaluation and treatmentof altered mental status with workup/evaluation notable for brain mass favoring meningioma with vasogenic edema with declined neurosurgery evaluation and transfer with supportive management request with deferral of steroids given concern for potentially worsening of her delirium and underlying dementia She is presenting now09/28/23 from facility, reportedly she has been? tired over the past few days and was found at approximately 7 PM on day of presentation unresponsive in her bed with oxygenation down to 84% prompting EMS evaluation noted upon arrival to be answering some questions and moving all extremities. In the ER, Temp T101 WBC 20.5 BUN/creatinine 24/0.98 UA + LE CXR consistent with PNA CT brain with known large 3 cm mass with surrounding edema of the midline anterior fossa skull base with ventricular size unchanged with no evidence of any acute intracranial hemorrhage Attempted EEG this morning, patient was agitated and ripped off the leads [facility] Medical History Dementia Chronic systolic (congestive) heart failure Seizure CVA (cerebral vascular accident) Atherosclerotic heart disease of [place] coronary artery without angina pectoris Essential hypertension Concussion Fall SDH (subdural hematoma) Debility Right arm pain Stroke Cardiomyopathy HLD (hyperlipidemia) CAD (coronary artery disease) Abnormal ECG COPD (chronic obstructive pulmonary disease) Home Medications ?Medication ?Instructions ?Recorded ?Last Taken ?Type donepezil 5 mg tablet 5 mg PO QHS dementia 12/02/17 Unknown Rx atorvastatin 10 mg tablet 10 mg PO QHS cholesterol 08/17/21 Unknown History diclofenac sodium 1 % topical gel 1 ea topical 4X/DAY pain arthritis 08/17/21 Unknown History (Voltaren Arthritis Pain) clopidogrel 75 mg tablet (Plavix) 75 mg PO DAILY antiplatlet 11/28/21 Unknown History amitriptyline 50 mg tablet 50 mg PO DAILY depression 08/16/23 Unknown History famotidine 40 mg tablet 40 mg PO DAILY GERD 08/16/23 Unknown History ipratropium bromide 42 mcg (0.06 2 spray intranasal 4X/DAY PRN PRN 08/16/23 Unknown History %) nasal spray allergy symptoms levocetirizine 5 mg tablet 5 mg PO DAILY allergies 08/16/23 Unknown History pantoprazole 40 mg tablet,delayed 40 mg PO DAILY GERD 08/16/23 Unknown History release albuterol sulfate 90 mcg/actuation 2 puff inhalation Q6H PRN sob 08/18/23 Unknown History aerosol inhaler wheezes multivitamin (Daily Multi-Vitamin 1 tab PO DAILY supplement 09/28/23 Unknown History tablet) Allergy/AdvReac Type Severity Reaction Status Date / Time Sulfa (Sulfonamide Allergy Severe Hives Verified 09/28/23 20:09 Antibiotics) gabapentin AdvReac PT UNABLE Verified 09/28/23 20:09 TO RESPOND-NEEDS F/U zolpidem (From Ambien) AdvReac Unknown Verified 09/28/23 20:09 Family History Father Myocardial infarction, Onset Age: 75 Surgical History History of spinal fusion History of left heart catheterization (LHC) (~05/23/06) Social History (Updated 09/28/23 @ 22:[address] Nikole Mancuso MD) housing: assisted living facility Smoking Status: Former smoker alcohol intake: current details: occasional substance use type: does not use Vital Signs Vital Signs Vital Signs: 09/28/23 20:11 09/28/23 20:15 09/28/23 20:54 Temperature 101 F H 101 F H Temperature Source Axillary Axillary Pulse Rate 112 H 111 H Respiratory Rate 20 H 20 H Respiratory Effort Respiratory Depth Respiratory Pattern Blood Pressure 114/43 L 114/43 L Blood Pressure Mean 66 66 Blood Pressure Source Blood Pressure Position Blood Pressure Location Pulse Ox 100 100 91 Oxygen Delivery Method Nasal Cannula Nasal Cannula Room Air Oxygen Flow Rate (L/min) 5 09/28/23 22:00 09/28/23 22:15 09/28/23 22:54 Temperature 20 F L 98.9 F Temperature Source Axillary Pulse Rate 105 H 105 H 99 Respiratory Rate 20 H 25 H 24 H Respiratory Effort Respiratory Depth Respiratory Pattern Blood Pressure 106/61 93/56 L 95/64 Blood Pressure Mean 76 68 74 Blood Pressure Source Blood Pressure Position Blood Pressure Location Pulse Ox 93 97 92 Oxygen Delivery Method Room Air Room Air Oxygen Flow Rate (L/min) 09/28/23 23:51 09/29/23 04:55 09/29/23 04:56 Temperature 96.5 F L Temperature Source Oral Pulse Rate 85 Respiratory Rate 20 H Respiratory Effort Respiratory Depth Respiratory Pattern Blood Pressure 115/73 Blood Pressure Mean 87 Blood Pressure Source Blood Pressure Position Blood Pressure Location Pulse Ox 97 Oxygen Delivery Method Room Air Room Air Room Air Oxygen Flow Rate (L/min) 09/29/23 08:09 09/29/23 08:12 09/29/23 09:38 Temperature 97.4 F L Temperature Source Temporal Pulse Rate 84 Respiratory Rate 26 H Respiratory Effort Normal Non-Labored Respiratory Depth Normal Respiratory Pattern Tachypnea Blood Pressure 103/54 L Blood Pressure Mean 70 Blood Pressure Source Blood Pressure Position Blood Pressure Location Pulse Ox 98 95 Oxygen Delivery Method Room Air Room Air Room Air Oxygen Flow Rate (L/min) 09/29/23 09:38 Temperature 97.4 F L Temperature Source Temporal Pulse Rate 84 Respiratory Rate 26 H Respiratory Effort Respiratory Depth Respiratory Pattern Blood Pressure 103/54 L Blood Pressure Mean 70 Blood Pressure Source Monitor Blood Pressure Position Semi-Fowlers Blood Pressure Location Left Leg Pulse Ox 95 Oxygen Delivery Method Room Air Oxygen Flow Rate (L/min) Weight Weight: 62 kg Body Mass Index (BMI) 20.7 EEG Results Procedure Details EEG Procedure Details: MARINA ESPINO is a 87 year old F with a past medical history of , who presents for evaluation of Electroencephalogram on DATE at TIME Physical Exam Narrative Exam performed with help of the nurse/WESTON present with patient on Tele site NEURO: Sleepy, wakes up to voice, not cooperative, not following commands, eyes midline Moving all extremities anti gravity Lab / Micro Data 09/29/23 05:54 09/29/23 05:54 Labs: Laboratory Results - last 24 hr 09/28/23 20:25: WBC 20.5 H, RBC 4.08 L, Hgb 10.7 L, Hct 34.3 L, MCV 84.1, MCH 26.2 L, MCHC 31.2 L, RDW Std Deviation 40.6, RDW Coeff of Karine 13.2, Plt Count 326, MPV 9.7, Immature Gran % (Auto) 0.900, Neut % (Auto) 82.4 H, Lymph % (Auto) 1.7 L, [place] % (Auto) 5.6, Eos % (Auto) 9.2 H, Baso % (Auto) 0.2, Absolute Neuts (auto) 16.9 H, Absolute Lymphs (auto) 0.34 L, Nucleated RBC % 0, Differential Comment SEE COMMENT, Platelet Estimate ADEQUATE, RBC Morphology NORM C+C, Anisocytosis RARE, Ovalocytes RARE, PT 13.7, INR 1.0, APTT 28.0, Sodium 140, Potassium 3.6, Chloride 106, Carbon Dioxide 28.0, Anion Gap 6, BUN 24 H, Creatinine 0.98, Estim Creat Clear Calc 36.06, Est GFR (MDRD) Af Amer 69, Est GFR (MDRD) Non-Af 57 L, BUN/Creatinine Ratio 24.5 H, Glucose 120 H, Lactic Acid 1.3, Calcium 9.1, Phosphorus 1.7 L, Magnesium 2.0, Total Bilirubin 0.50, AST 23, ALT 17, Alkaline Phosphatase 90, Total Protein 6.4, Albumin 3.1 L, Globulin 3.3, Albumin/Globulin Ratio 0.9 09/28/23 20:48: Urine Color Yellow, Urine Clarity Clear, Urine pH 6.5, Ur Specific [place] 1.015, Urine Protein 15 H, Urine Glucose (UA) Normal, Urine Ketones Negative, Urine Occult Blood 10 H, Urine Nitrite Negative, Urine Bilirubin Negative, Urine Urobilinogen Normal, Ur Leukocyte Esterase 100 H, Urine RBC 0 SEEN, Urine WBC 0-5 SEEN, Ur Squamous Epith Cells 0 SEEN, Urine Bacteria 0 SEEN, Urine Mucus 0 SEEN 09/28/23 23:38: MRSA (PCR) Negative 09/29/23 05:54: WBC 28.4 H, RBC 3.97 L, Hgb 10.3 L, Hct 33.8 L, MCV 85.1, MCH 25.9 L, MCHC 30.5 L, RDW Std Deviation 41.0, RDW Coeff of Karine 13.2, Plt Count 307, MPV 9.8, Immature Gran % (Auto) 1.300 H, Neut % (Auto) 94.0 H, Lymph % (Auto) 2.[address], [place] % (Auto) 2.0, Eos % (Auto) 0.0, Baso % (Auto) 0.1, Absolute Neuts (auto) 26.7 H, Absolute Lymphs (auto) 0.74 L, Nucleated RBC % 0, Differential Comment , Sodium 139, Potassium 3.9, Chloride 109 H, Carbon Dioxide 24.0, Anion Gap 6, BUN 24 H, Creatinine 0.86, Estim Creat Clear Calc 41.07, Est GFR (MDRD) Af Amer 80, Est GFR (MDRD) Non-Af 66, BUN/Creatinine Ratio 27.9 H, Glucose 143 H, Calcium 8.8, Total Bilirubin 0.50, AST 23, ALT 15, Alkaline Phosphatase 83, Total Protein 5.7 L, Albumin 2.6 L, Globulin 3.1, Albumin/Globulin Ratio 0.8 L Micro: Microbiology 09/28/23 20:48 Urine Catheter - Catheter Legionella Antigen - Final 09/28/23 20:48 Urine Catheter - Catheter Streptococcus pneumoniae Antigen (M - Final 09/29/23 00:18 Mucosa - Nasopharyngeal Respiratory Panel (PCR) - Final Imaging Radiology Impression Brain CT 09/28/23 20:30 IMPRESSION: Again is noted large 3 cm mass containing few calcifications with surrounding edema of the midline anterior fossa skull base. Ventricular size is unchanged. No acute intracranial hemorrhage in this noncontrast head CT. Electronically Signed: Urban Gómez MD at 21:38 EDT , Chest X-Ray 09/28/23 21:05 IMPRESSION: Patchy and nodular diffuse right lung airspace disease, to include pneumonia. Recommend follow-up to resolution as metastatic process is not excluded. Electronically Signed: Urban Gómez MD at 22:53 EDT , Active Medications Active Medications Active Medications: Current Medications Generic Name Dose Route Start Last Admin Trade Name Freq PRN Reason Stop Dose Admin Acetaminophen 650 mg 09/28/23 22:36 Acetaminophen 650 Mg Suppository RC Q4H PRN PRN Fever, pain 1-10 Albuterol Sulfate 2.5 mg 09/28/23 22:36 Albuterol 2.5 Mg/3 Ml Vial.Neb. INHALATION Q2H PRN PRN Dyspnea, wheezing Dexamethasone Sodium Phosphate 4 mg 09/29/23 06:00 09/29/23 05:51 Dexamethasone 4 Mg/Ml Vial IV 4 mg Q6 RHETT Administration Hydralazine HCl 10 mg 09/28/23 22:36 Hydralazine 20 Mg/Ml Vial IV Q4H PRN PRN SBP > 160 Protocol Ampicillin Sodium/Sulbactam 112 mls @ 150 mls/hr 09/29/23 06:00 09/29/23 06:49 Sodium 3 gm/ Sodium Chloride IV 10/06/23 06:01 Infused Q6 RHETT Infusion Levetiracetam 500 mg/ Sodium 105 mls @ 420 mls/hr 09/29/23 10:00 09/29/23 10:17 Chloride IV 420 mls/hr Q12 RHETT Administration Pantoprazole Sodium 40 mg/ 110 mls @ 330 mls/hr 09/28/23 22:36 09/29/23 09:33 Sodium Chloride IV 330 mls/hr Q12 RHETT Administration Sodium Chloride 250 mls @ 15 mls/hr 09/28/23 22:46 IV .[id number] PRN Additional IVPB Infusion Sodium Chloride 250 mls @ 15 mls/hr 09/28/23 22:46 IV .[id number] PRN Saline Flush Ondansetron HCl 4 mg 09/28/23 22:36 Ondansetron 4 Mg/2 Ml Vial IV Q8H PRN PRN NAUSEA/VOMITING Prochlorperazine Edisylate 5 mg 09/28/23 22:36 Prochlorperazine 10 Mg/2 Ml Vial IV Q4H PRN PRN Breakthrough Nausea/Vomiting Sodium Chloride 10 - 40 ml 09/28/23 22:46 0.9% Saline Lock 10 Ml Syringe IV UD PRN SALINE FLUSH
[2023-09-29 11:24] VITALS: BP 122/65; PULSE 81; RESP 20; TEMP 36.4; O2SAT 96
--- NOTE | 2023-09-29 11:35 | CASEMGMT ---
CHERYLE spoke with Don from [employer]. Don confirmed that the hearing was postponed until October 07 as the courts could not get a hold of one of patient's sons. Don asked that CHERYLE keep her updated. Marjorie Barnett OXYGEN THERAPY TECHNICIAN DMITRY
[2023-09-29 16:03] VITALS: BP 123/74; PULSE 76; RESP 20; TEMP 36.4; O2SAT 98
[2023-09-29 21:40] VITALS: BP 121/75; PULSE 84; RESP 16; TEMP 36.4; O2SAT 96
[2023-09-30] VITALS (8 sets, daily range): BP systolic 113–140; BP diastolic 59–75; PULSE 71–80; RESP 14–18; TEMP 36.2–36.6; O2SAT 96–99
[2023-09-30] MEDS: Ampicillin/Sulbactam 3 GM in 0.9% Normal Saline (100mL MB+) 100 ML IV ×4 (00:52→17:39)
[2023-09-30 06:31] LABS: Absolute Lymphocyte Count 1.05 X10^3/uL (0.83-4.51); Absolute Neutrophil Count 20.8 X10^3/uL (2.0-7.7); Basophil# 0.02 X10^3/uL; Basophil% 0.1 % (0-1); Hematocrit 32.3 % (37-47); Hemoglobin 9.8 g/dL (12.0-15.0); Lymphocyte # 1.05 X10^3/ul (0.83-4.51); Lymphocyte % 4.6 % (19-41); Mean Corp Hgb Conc 30.3 g/dL (32-36); Mean Corpuscular Hgb 25.7 pg (27.0-32.0); Mean Corpuscular Volume 84.6 fL (81-99); Monocyte# 1.01 X10^3/uL; Monocyte% 4.4 % (0-10); NRBC Flagged by Analyzer 0 % (0-5); Neutrophil % 90.2 % (47-70); POSITIVE DIFFERENTIAL YES; Platelet Count 307 K/mm3 (150-450); RBC Distribution Width CV 13.3 % (11.6-14.6); RBC Distribution Width SD 41.3 fl (35.1-43.9); Red Blood Count 3.82 M/mm3 (4.2-5.4); White Blood Count 23.1 K/mm3 (4.4-11.0)
[2023-09-30 06:35] LABS: Differential Indicated SCAN CRITERIA MET
[2023-09-30 07:06] LABS: Anion Gap 5 (5-15); BUN 26 mg/dL (7-18); BUN/Creat Ratio 33.4 RATIO (10-20); Calcium,Total 8.8 mg/dL (8.5-10.1); Chloride 114 mmol/L (98-107); Creatinine, Serum 0.78 mg/dL (0.55-1.02); EST Glomerular Filtration Rate 75 mL/min (>60); Est Glom Filt Rate - Afr Amer 90 mL/min (>60); Estimated Creatinine Clearance 50.32 ml/min; Glucose 91 mg/dL (74-106); Potassium 3.7 mmol/L (3.5-5.1); Sodium Level 144 mmol/L (136-145)
--- NOTE | 2023-09-30 07:50 | PCM.PN.HOSP ---
Reason for Visit Reason for Visit: Diagnoses Pneumonitis due to inhalation of food and vomit (09/28/23) Subjective Subjective Wanting telemetry taken off. Objective Data Objective Data Vital Signs: Vital Signs Temp Pulse Resp BP Pulse Ox O2 Del Method O2 Flow Rate 36.2 C L 73 16 120/70 98 Room Air 5 09/30/23 04:23 09/30/23 04:23 09/30/23 04:23 09/30/23 04:23 09/30/23 04:23 09/30/23 04:23 09/28/23 20:15 Oxygen Flow Rate (L/min) 5 Oxygen Delivery Method Room Air Weight: 62 kg Body Mass Index (BMI) 20.7 Intake & Output: Intake and Output for Last 24 Hours 09/28/23 09/29/23 09/30/23 23:59 23:59 23:59 Intake Total 505 / 505 1883 / 1883 224 / 224 Balance 505 / 505 1883 / 1883 224 / 224 Lab / Micro Data 09/30/23 06:01 09/30/23 06:01 Labs: Laboratory Results - last 24 hr 09/28/23 23:38: MRSA (PCR) Negative 09/30/23 06:01: WBC 23.1 H, RBC 3.82 L, Hgb 9.8 L, Hct 32.3 L, MCV 84.6, MCH 25.7 L, MCHC 30.3 L, RDW Std Deviation 41.3, RDW Coeff of Karine 13.3, Plt Count 307, MPV 10.0, Immature Gran % (Auto) 0.700, Neut % (Auto) 90.2 H, Lymph % (Auto) 4.6 L, [place] % (Auto) 4.4, Eos % (Auto) 0.0, Baso % (Auto) 0.1, Absolute Neuts (auto) 20.8 H, Absolute Lymphs (auto) 1.05, Nucleated RBC % 0, Sodium 144, Potassium 3.7, Chloride 114 H, Carbon Dioxide 25.0, Anion Gap 5, BUN 26 H, Creatinine 0.78, Estim Creat Clear Calc 50.32, Est GFR (MDRD) Af Amer 90, Est GFR (MDRD) Non-Af 75, BUN/Creatinine Ratio 33.4 H, Glucose 91, Calcium 8.8 Micro: Microbiology 09/28/23 20:48 Urine Catheter - Catheter Legionella Antigen - Final 09/28/23 20:48 Urine Catheter - Catheter Streptococcus pneumoniae Antigen (M - Final 09/29/23 00:18 Mucosa - Nasopharyngeal Respiratory Panel (PCR) - Final Physical Exam Const Constitutional Narrative: Sitting up in bed with the telemetry pack in her hand. More coherent today and talkative. Resp normal respiratory effort, no retractions, no use of accessory muscles and clear to auscultation bilaterally Cardio regular rate, regular rhythm, S1 normal heart sound and S2 normal heart sound GI normal to inspection, nondistended, normoactive bowel sounds, soft to palpation, non-tender and non-distended Extremity normal to inspection and full ROM Assessment & Plan Assessment/Plan (1) Aspiration pneumonia: PLAN: Plan Acute metabolic encephalopathy Overall improved. Likely secondary to pneumonia in a patient with advanced dementia. Seen by neurology who since there is no clear epileptic activity, recommends no additional workup and no antiepileptics at this time. Pneumonia Suspect aspiration. Chest x-ray reviewed and showed diffuse right-sided infiltrate. Antibiotics with ampicillin/sulbactam. Brain mass Family previously declined neurosurgery input. Recent admission. Patient had been doing well during recent admission despite the patient having edema so with her dementia, steroids were avoided. With these new events, patient is currently on IV dexamethasone. Unclear if the vasogenic edema, which she had previously, is contributing to her encephalopathy. Will de-escalate steroid therapy as it may potentiate her encephalopathy given her underlying severe dementia. Chronic conditions: History CVA: Continue clopidogrel History SDH: Noted to be associated with mechanical fall, resolved, remote. Dementia unclear type with unclear behavioral disturbance history: Complicates care and recovery Chronic COPD: Stable not in exacerbation CAD: Continue carvedilol Chronic Kidney Disease Stage III stable Chronic normocytic anemia: Stable HF with recovered EF: Noted history of HF with recovered EF with nonischemic cardiomyopathy, patient on Plavix therapy which during previous admission had been held temporarily but was resumed upon discharge. Once oral intake safe will continue Plavix, statin, not on beta-jessica nor JOSEP inhibitor/ARB given low BP, previously been on low-dose Coreg but this was discontinued during prior admission also. Hypertension: Per current list does not appear to be on regimen although had been on low-dose Coreg but this was discontinued during prior admission, BP low normal, will have PRN hydralazine. hyperlipidemia: Once oral intake stable continue home statin therapy. Allergic rhinitis: Once oral intake safe will continue home levocetirizine regimen. Former tobacco use: Encourage continued tobacco cessation. GERD: Once oral intake safe will utilize home oral PPI, IV PPI in interim. VTE prophylaxis: SCDs Code status: DNRCCA, DNI. Disposition: Patient medically stable. Waiting on insurance authorization. Charges/Coding Visit Charges Inpatient E&M: 05721 Subs Hosp L2
[2023-09-30] MEDS: Pantoprazole Sodium 40 MG in 0.9% Normal Saline (100mL MB+) 100 ML 330 MG IV ×2 (08:16→22:47)
--- NOTE | 2023-09-30 11:10 | CASEMGMT ---
Per physician patient is ready for discharge back to [facility]. Once therapy sees patient will have [facility] start the pre-cert. Plan: d/c back to [facility] pending insurance approval. Marjorie ANDRES
--- NOTE | 2023-09-30 14:44 | ST.MBS ---
Modified Barium Swallow Patient Information Study Date: 09/30/23 Study Time: 13:00 Direct Billable Minutes: 104 Total Minutes procedure & reportin Diagnosis: Aspiration PNA J18.9 Referring Physician: Ramos Park Reason for Referral: Objectively assess swallow function, assess risk for aspiration, and determine recommendations for least restrictive diet textures and compensatory strategies to improve safety of swallow. Medical History: PMH: Dementia, Chronic systolic (congestive) heart failure, Seizure, CVA, Atherosclerotic heart disease of [place] coronary artery without angina pectoris, HTN, Concussion, Fall, SDH, Debility, Right arm pain, Stroke, Cardiomyopathy, HLD, CAD, Abnormal ECG, COPD. Per H&P: Most recent discharge 08/19/23 following evaluation and treatment of altered mental status with workup/evaluation notable for brain mass favoring meningioma with vasogenic edema with declined neurosurgery evaluation and transfer with supportive management request with deferral of steroids given concern for potentially worsening of her delirium and underlying dementia. Pt represents to the [facility] on 09/28/23 with altered level of consciousness per facility. She was more tired over the last several days and then found on day of presentation unresponsive in her bed with oxygenation down to 84% prompting EMS evaluation. Pt brought to [facility] and admitted for management of aspiration pneumonia and metabolic encephalopathy. PNA is suspected to be due to aspiration. Chest X-ray IMPRESSION: Patchy and nodular diffuse right lung airspace disease, to include pneumonia. Recommend follow-up to resolution as metastatic process is not excluded. Antibiotics with ampicillin/sulbactam. Pt is NPO and has been referred for ST consult. BSE 09/29/23 recommended strict NPO due to poor alertness. WOOL SUPPLIER trialed thin water and applesauce at bedside today with pt gargling water, max cues to swallow, wet belching following trials. She was recommended for MBSS to objectively assess swallow function and aspiration risk to determine LRD textures. Current Diet Ordered: Strict NPO Dentition: Edentulous Mental Status: Impaired Respiratory Status: Oxygenating on Room Air Penetration-Aspiration Scale Penetration-Aspiration Scale: OBJECTIVE ASSESSMENT OF SWALLOW FUNCTION (QUANTITATIVE ? PER TRIAL): PENETRATION / ASPIRATION SCALE (IYER): 1 = does not enter airway 2 = enters airway/above vocal folds/ejected 3 = enters airway/above vocal folds/not ejected 4 = enters airway/contacts vocal folds/ejected 5 = enters airway/contacts vocal folds/not ejected 6 = enters airway/below vocal folds/ejected 7 = enters airway/below vocal folds/not ejected despite effort 8 = enters airway/below vocal folds/no effort VIDEOFLOROSCOPIC SCALE SCORE (IYER): Grade I = aspiration of material that has penetrated into the laryngeal vestibule, intact cough reflex Grade II = aspiration < 10 % of the bolus, intact cough reflex Grade III = aspiration of < 10 % of the bolus, reduced cough reflex or aspiration of > 10 % of the bolus, intact cough reflex Grade IV = aspiration of > 10 % of the bolus, reduced cough reflex Penetration-Aspiration Scale Score Thin Liquid via teaspoon: Result: 1= does not enter airway Thin Liquid via teaspoon Trial 2: Result: 1= does not enter airway Comment: Due to retrograde flow of bolus through the UES, WOOL SUPPLIER had associate professor of radiology perform esophageal sweep. WOOL SUPPLIER had patient position arms raised up to partially reveal pouch-like collection of barium in the upper esophagus. Pudding via teaspoon: Result: 1= does not enter airway Comment: Esophageal screen - WOOL SUPPLIER had patient position arms raised up to reveal pouch-like collection of barium in the upper esophagus with barium pudding. Retrograde flow of large amount of pudding bolus through the UES and into the pharynx. Oral Phase Labial Seal: Escape progressing to mid-chin Tongue Control During Bolus Hold: Posterior escape of greater than half of bolus Bolus Transport/Lingual Motion: Brisk tongue motion Oral Residue: Residue collection on oral structures (Piecemeal deglutition of pudding) Pharyngeal Phase Initiation of Pharyngeal Swallow: Bolus head in pyriforms Soft Palate Elevation: No bolus between soft palate and pharyngeal wall Laryngeal Elevation: Comp. Superior move thyroid cart w/comp. apprx arytenoid cart-epig pet Anterior Hyoid Excursion: Partial anterior movement Epiglottic Movement: Complete inversion Laryngeal Vestibule Closure at Height of Swallow: Complete; no air/contrast in laryngeal vestibule Pharyngeal Stripping Wave: Present - complete Pharyngoesophageal Segment Opening: Complete distension and complete duration; no obstruction of flow Tongue Base Retraction: Trace column of contrast between tongue base & post. pharyngeal wall Pharyngeal Residue: Trace residue within or on pharyngeal structures Esophageal Phase Esophageal Clearance: Esophageal retention w/ retrograde flow through pharyngoesophageal seg Diagnosis/Impression Diagnosis: Severe esophageal dysphagia R13.14; Mild oropharyngeal dysphagia R13.12 Impression: The oral phase is primarily marked by... -Poor bolus control with posterior loss of >1/2 bolus to the pyriforms prior to swallow onset -Did not assess mastication due to WOOL SUPPLIER concerns for choking due to deficits in mentation and poor esophageal clearance of thin and pudding. The pharyngeal phase is primarily marked by... -Delayed swallow onset. -Decreased anterior hyoid excursion; however, complete airway closure during the swallow. No aspiration observed; however, pt is at high risk for reflux aspiration. See esophageal phase findings below. -Trace pharyngeal residues after the swallow initially; however, mild-moderate pharyngeal residue with retrograde flow of thin and pudding through the UES. The esophageal phase is primarily marked by... -Large pouch-like collection of barium in the upper esophagus, which WOOL SUPPLIER reviewed with radiologist, Dr. Hairston, who confirmed pt to have a Zenker's diverticulum. See Image 1 below. -Retrograde flow of thin and pudding thick barium through the upper esophageal sphincter. -Retention of thin barium in the lower esophagus. Image 1. Large pouch-like collection of barium in the upper esophagus with retrograde flow of pudding bolus through the upper esophageal sphincter. Recommendations Diet: Thin Liquids (Full Thin Liquid diet) Comment: If increased s/s of aspiration, stop oral intake and resume at a later time. Meds by IV as able - other critical medications crushed in if unable to be given via IV. Compensatory Strategies: Small Sips, Slow Rate, Sitting upright and Remain sitting upright for 30 minutes after PO intake (60min after po intake) Recommend Repeat Modified Barium Swallow: No Need for Skilled Speech Therapy Services: Yes Comment: -Train the patient and staff in use of strategies to decrease risk for aspiration and reflux aspiration. -Ongoing assessment of diet tolerance of recommended textures. Education Completed: 1. Described result of evaluation. and 7. Pt requires further education on strategies & risks. Comment: WOOL SUPPLIER reviewed and discussed results of MBSS with Dr. Park via phone call. Due to patient being so medically complex, she is not appropriate for surgical intervention of Zenker's diverticulum or tube feeding. WOOL SUPPLIER proceeded with full thin liquid diet and educated RN and CONTINUOUS IMPROVEMENT INTERN in patient's HIGH risk for reflux aspiration. WOOL SUPPLIER posted above aspiration precautions in the patient's room. WOOL SUPPLIER also called sleep medicine physician to inform her of restrictive diet recommendations as WOOL SUPPLIER is concerned for the patient's ability to adequately consume enough po intake to meet nutrition and hydration needs. Status Active ST Patient: Active Contact Information [facility] Speech Therapy:: Corrina Gallardo M.A. CCC-WOOL SUPPLIER? Speech-Language Pathologist?? [facility] [address] [place] [address]? [email or web address]?? [phone]
[2023-09-30] MEDS: 0.9% Saline Lock 10 ML Syringe IV (17:39)
[2023-10-01] MEDS: Ampicillin/Sulbactam 3 GM in 0.9% Normal Saline (100mL MB+) 100 ML IV ×5 (00:48→23:24)
[2023-10-01 04:53] VITALS: BMI 20.8
[2023-10-01 06:00] VITALS: BP 142/69; PULSE 74; RESP 14; TEMP 36.6; O2SAT 100
[2023-10-01] MEDS: predniSONE 20 MG Tablet 40 MG PO (08:38)
[2023-10-01 09:00] VITALS: BP 149/87; PULSE 76; RESP 14; TEMP 36.6; O2SAT 99
[2023-10-01] MEDS: Pantoprazole Sodium 40 MG in 0.9% Normal Saline (100mL MB+) 100 ML 330 MG IV ×2 (10:46→20:02)
[2023-10-01] MEDS: 0.9% Saline Lock 10 ML Syringe IV ×2 (10:46→17:20)
--- NOTE | 2023-10-01 10:51 | PCM.PN.HOSP ---
Subjective Subjective No issues overnight. Pleasantly confused Objective Data Objective Data Vital Signs: Vital Signs Temp Pulse Resp BP Pulse Ox O2 Del Method O2 Flow Rate 97.9 F 76 14 149/87 H 99 Room Air 5 10/01/23 09:00 10/01/23 09:00 10/01/23 09:00 10/01/23 09:00 10/01/23 09:00 10/01/23 09:00 09/28/23 20:15 Oxygen Flow Rate (L/min) 5 Oxygen Delivery Method Room Air Weight: 137 lb 2.04 oz Body Mass Index (BMI) 20.8 Intake & Output: Intake and Output for Last 24 Hours 09/30/23 10/01/23 10/02/23 03:59 03:59 03:59 Intake Total 1773 / 1773 928 / 928 112 / 112 Balance 1773 / 1773 928 / 928 112 / 112 Lab / Micro Data 09/30/23 06:01 09/30/23 06:01 Micro: Microbiology 09/28/23 20:48 Urine, Catheterized Urine Culture - Final Culture exhibits no growth. 09/28/23 20:48 Urine Catheter - Catheter Legionella Antigen - Final 09/28/23 20:48 Urine Catheter - Catheter Streptococcus pneumoniae Antigen (M - Final 09/29/23 00:18 Mucosa - Nasopharyngeal Respiratory Panel (PCR) - Final Physical Exam Narrative General: Alert, confused, Cooperative, No apparent distress HEENT: Atraumatic, PERRLA, EOMI, Normocephalic Oral: Moist Mucosa Neck: Supple, No JVD Lungs: Diminished, Normal air movement, No rhonchi, No wheeze, No rales Cardiovascular: Regular rate, Regular Rhythm, Normal S1, Normal S2, No murmurs Abdomen: Soft, Non Tender, Non-Distended, No Hepato-splenomegaly Extremities: No edema, Capillary Refill Less than 3 Seconds Skin: No rashes, No breakdown Musculoskeletal: No Tenderness to Palpation of Joints or Extremities Neurological: No focal neurological deficits, Motor Exam 5/5 strength throughout, Sensory exam intact to light touch and pain Psych/Mental Status: Normal Affect, Appropriate Assessment & Plan Assessment/Plan (1) Aspiration pneumonia: PLAN: Plan 1. Acute metabolic encephalopathy secondary to aspiration pneumonia in the setting of a known brain mass ? Physical condition does appear to be improved proved with the Unasyn, can transition to Augmentin when ready for discharge ? She is continually confused which is her baseline ? There was a concern for possible seizures so neurology was consulted but felt that the EEG did not demonstrate any epileptic activity did not recommend any antiepileptics ? PT/OT ? Family declined any neurosurgical evaluation for the brain mass she is a DNR CCA 2. Essential HTN/HLD ? Blood pressures are stable/continue with her home medications ? Will monitor make adjustments as necessary ? Continue with antiplatelet for history of CVA 3. GERD ? Stable ? Continue with PPI 4. Anxiety/depression/dementia ? Stable ? Continue with her home medications 5. COPD ? Not in exacerbation ? Continue with her home inhalers DVT: SCDs Charges/Coding Visit Charges Inpatient E&M: 27716 Subs Hosp L2
[2023-10-01 15:00] VITALS: BP 143/52; PULSE 78; RESP 14; TEMP 36.6; O2SAT 98
[2023-10-01 20:40] VITALS: BP 113/94; PULSE 87; RESP 18; TEMP 36.3; O2SAT 98
[2023-10-02 03:13] VITALS: BMI 20.7
[2023-10-02 03:15] VITALS: BP 143/75; PULSE 80; RESP 18; TEMP 36.6; O2SAT 98
[2023-10-02] MEDS: Ampicillin/Sulbactam 3 GM in 0.9% Normal Saline (100mL MB+) 100 ML IV ×2 (05:21→12:49)
[2023-10-02 07:23] LABS: Absolute Lymphocyte Count 1.32 X10^3/uL (0.83-4.51); Absolute Neutrophil Count 10.1 X10^3/uL (2.0-7.7); Basophil# 0.01 X10^3/uL; Basophil% 0.1 % (0-1); Eosinophil# 0.03 X10^3/uL; Eosinophils% 0.2 % (0-5); Hematocrit 33.9 % (37-47); Hemoglobin 10.6 g/dL (12.0-15.0); Lymphocyte # 1.32 X10^3/ul (0.83-4.51); Lymphocyte % 10.4 % (19-41); Mean Corp Hgb Conc 31.3 g/dL (32-36); Mean Corpuscular Hgb 25.7 pg (27.0-32.0); Mean Corpuscular Volume 82.3 fL (81-99); Mean Platelet Vol. 9.9 fl (6.2-12.0); Monocyte# 1.07 X10^3/uL; Monocyte% 8.5 % (0-10); NRBC Flagged by Analyzer 0 % (0-5); Neutrophil # 10.08 X10^3/uL (2.7-7.7); Neutrophil % 79.8 % (47-70); Platelet Count 331 K/mm3 (150-450); RBC Distribution Width CV 13.2 % (11.6-14.6); RBC Distribution Width SD 39.4 fl (35.1-43.9); Red Blood Count 4.12 M/mm3 (4.2-5.4); White Blood Count 12.6 K/mm3 (4.4-11.0)
[2023-10-02 07:35] LABS: Anion Gap 6 (5-15); BUN 11 mg/dL (7-18); BUN/Creat Ratio 16.4 RATIO (10-20); Calcium,Total 8.6 mg/dL (8.5-10.1); Chloride 104 mmol/L (98-107); Creatinine, Serum 0.67 mg/dL (0.55-1.02); EST Glomerular Filtration Rate 89 mL/min (>60); Est Glom Filt Rate - Afr Amer 108 mL/min (>60); Estimated Creatinine Clearance 50.32 ml/min; Glucose 86 mg/dL (74-106); Potassium 3.1 mmol/L (3.5-5.1); Sodium Level 138 mmol/L (136-145)
[2023-10-02 08:25] VITALS: BP 133/69; PULSE 83; RESP 16; TEMP 36.3; O2SAT 93
[2023-10-02] MEDS: predniSONE 20 MG Tablet 40 MG PO (08:31)
[2023-10-02] MEDS: Pantoprazole Sodium 40 MG in 0.9% Normal Saline (100mL MB+) 100 ML 330 MG IV (08:37)
--- NOTE | 2023-10-02 10:34 | NURSING ---
Pt's son Casey See here at bedside, gave updates on pt's dispo, awaiting precert at [facility]. Pt asked to be updated on transfer back to [facility] so he could visit. He seemed disgruntled w/ current communication between [facility] and his sister who lives out of state, saying that he is the oldest child and next of kin... This RN stated she had no knowledge of any social dynamics and only had daughters listed on file. The pt ok'd son to have information while he was in the room. His number is [phone].
--- NOTE | 2023-10-02 10:54 | CASEMGMT ---
Voice mail received from insurance requesting a peer to peer. SW notified physician. Patient does have pending Medicaid so she can return on that. SW is waiting to see if the physician is willing to do a peer to peer. Marjorie ANDRES
--- NOTE | 2023-10-02 13:39 | PCM.TXEXTCAR ---
Diet Diet Order/Speech Therapy: 09/30/23 14:47 Diet: Full Liquid Liquid Consistency:: Regular/Thin Is pt able to select menu?: No Diet Comments: THIN LIQUIDS ONLY; Direct sup, slow rate, upright 60min after po intake Routine Orders/Code Status Routine Lab Work: CBC and BMP Code Status: DNRCC-A Wound(s) BLE: Wound Type: Abrasion Therapies Physical Therapy: Eval and Treat Occupational Therapy: Eval and Treat Problem/Diagnosis (1) Aspiration pneumonia: Status: Acute Code(s): J69.0 - Pneumonitis due to inhalation of food and vomit Plan 1. Acute metabolic encephalopathy secondary to aspiration pneumonia in the setting of a known brain mass ? Physical condition does appear to be improved proved with the Unasyn, can transition to Augmentin when ready for discharge ? She is continually confused which is her baseline ? There was a concern for possible seizures so neurology was consulted but felt that the EEG did not demonstrate any epileptic activity did not recommend any antiepileptics ? PT/OT ? Family declined any neurosurgical evaluation for the brain mass she is a DNR CCA 2. Essential HTN/HLD ? Blood pressures are stable/continue with her home medications ? Will monitor make adjustments as necessary ? Continue with antiplatelet for history of CVA 3. GERD ? Stable ? Continue with PPI 4. Anxiety/depression/dementia ? Stable ? Continue with her home medications 5. COPD ? Not in exacerbation ? Continue with her home inhalers DVT: SCDs Allergies/Procedures Done in Hospital Allergies Sulfa (Sulfonamide Antibiotics) Allergy (Severe, Verified 09/28/23 20:09) Hives gabapentin Adverse Reaction (Verified 09/28/23 20:09) PT UNABLE TO RESPOND-NEEDS F/U zolpidem (From Ambien) Adverse Reaction (Verified 09/28/23 20:09) Unknown Procedures: None Type of Care/Length of Stay Estimated LOS: More Than 30 Days Type of Care Needed: Intermediate Rehab Potential: Good Prognosis: Good Additional Orders/Day of Discharge Day of Discharge: 10/02/23 Dietary and Speech Recommendations Dietitian Recommendations/Changes: Advance diet as tolerated to regular/no added salt with consistency/texture as per HAND PAINTER. Will add ONS as diet advanced from NPO. Consider enteral nutrition support if pt deemed unsafe for PO nutrition. Discharge Plan Admission Admit Date/Time: 09/28/23 22:06 Attending Provider: Rizwan Rodriguez Primary Care Provider: Asad Hamlin Consulting Providers: Kailey Kenny; Nessa Jimenez; Mercy Summers; David Hayes; Matias Lugo; Evangelista Ruiz; JURGEN SANTILLAN; Bel Sethi; Monica Donahue; Juan Antonio Gauthier; Michelle Quigley; Nikole Mancuso; Ramos Park Discharge Orders/Prescriptions Prescriptions: New prednisone 10 mg tablet 40 mg PO BREAKFAST Qty: 0 0RF Rx Instructions: Take 3 tablets daily for 2 days then 2 tablets daily for 2 days then 1 tablet daily for 2 days then half tablet daily for 2 days amoxicillin-pot clavulanate 875-125 mg tablet 1 tab PO BID Qty: 10 0RF Continued donepezil 5 MG tablet 5 mg PO QHS 0RF atorvastatin 10 mg Tablet 10 mg PO QHS diclofenac sodium [Voltaren Arthritis Pain] 1 % Gel 1 ea TOPICAL 4X/DAY clopidogrel [Plavix] 75 mg Tablet 75 mg PO DAILY multivitamin [Daily Multi-Vitamin] Tablet 1 tab PO DAILY famotidine 40 mg tablet 40 mg PO DAILY pantoprazole 40 mg tablet,delayed release (DR/EC) 40 mg PO DAILY ipratropium bromide 42 mcg (0.06 %) spray,non-aerosol 2 spray INTRANASAL 4X/DAY PRN PRN (Reason: allergy symptoms) levocetirizine 5 mg tablet 5 mg PO DAILY amitriptyline 50 mg tablet 50 mg PO DAILY albuterol sulfate 90 mcg/actuation HFA aerosol inhaler 2 puff inhalation Q6H PRN (Reason: sob wheezes) Referrals / Follow Up: Asad Hamlin MD [Primary Care Provider] - Disposition Disposition (needs filled in before D/C Order can be placed): NonSkilled [facility]
--- NOTE | 2023-10-02 14:22 | CASEMGMT ---
Discharge Planning Discharge orders, signed med list, and transport time sent to [facility] via [facility]. Physicians will transport patient by cot at 4p. Nursing, SW, and her daughter (Aleta) updated. left for Jennifer Norton (legal guardian). Penelope Kim DC Planning Asst.
--- NOTE | 2023-10-02 14:28 | CASEMGMT ---
CHERYLE called Don at [facility] and let her know patient is being discharged back to [facility] today. Don said that patient's other son did sign off on the guardianship so patient does have an official guardian, Senior Net Software Engineer Jennifer Norton. Plan: d/c back to [facility] under intermediate level of care. Physicians will transport patient. Marjorie ANDRES
--- NOTE | 2023-10-02 14:34 | PHA.DC.MR.R ---
Pharmacy [place] Med Reconciliation Pharmacy Service has performed discharge medication reconciliation for this patient upon transfer to [facility] The patient's discharge medication list was reviewed for discrepancies and discrepancies were resolved. Medications at Discharge Home Medications donepezil 5 mg tablet 5 mg PO QHS dementia 12/02/17 atorvastatin 10 mg tablet 10 mg PO QHS cholesterol 08/17/21 diclofenac sodium 1 % topical gel (Voltaren Arthritis Pain) 1 ea topical 4X/DAY pain arthritis 08/17/21 clopidogrel 75 mg tablet (Plavix) 75 mg PO DAILY antiplatlet 11/28/21 amitriptyline 50 mg tablet 50 mg PO DAILY depression 08/16/23 famotidine 40 mg tablet 40 mg PO DAILY GERD 08/16/23 ipratropium bromide 42 mcg (0.06 %) nasal spray 2 spray intranasal 4X/DAY PRN PRN allergy symptoms 08/16/23 levocetirizine 5 mg tablet 5 mg PO DAILY allergies 08/16/23 pantoprazole 40 mg tablet,delayed release 40 mg PO DAILY GERD 08/16/23 albuterol sulfate 90 mcg/actuation aerosol inhaler 2 puff inhalation Q6H PRN sob wheezes 08/18/23 multivitamin (Daily Multi-Vitamin tablet) 1 tab PO DAILY supplement 09/28/23 amoxicillin 875 mg-potassium clavulanate 125 mg tablet 1 tab PO BID #10 tabs 10/02/23 prednisone 10 mg tablet 40 mg (4 x 10 mg) PO BREAKFAST #0 tabs 10/02/23
--- NOTE | 2023-10-02 15:00 | DS.PCM_ITS ---
Providers Date of Admission: 09/28/23 Primary Care Physician: Dr. Asad Hamlin MD Consultations 09/28/23 22:36 Consult: Tele-Neurology Routine Consulting Provider: [facility] Reason for Consult: brain mass w/ edema (damily defering work-up), concern seizure EMERGENT Consult: No MD Notified: Yes Date Notified: 09/29/23 Time Notified: 00:19 Method of Notification: [facility]swering Service Nursing Unit Staff Notify [facility] of Tele-Neurology Consult: Yes Reason For Visit: ENCEPHALOPATHY, ASPIRATION PNA, POSSIBLE SEIZURE Diagnosis Discharge Diagnosis (1) Aspiration pneumonia: Status: Acute Code(s): J69.0 - Pneumonitis due to inhalation of food and vomit Medications at Discharge Home Medications donepezil 5 mg tablet 5 mg PO QHS dementia 12/02/17 atorvastatin 10 mg tablet 10 mg PO QHS cholesterol 08/17/21 diclofenac sodium 1 % topical gel (Voltaren Arthritis Pain) 1 ea topical 4X/DAY pain arthritis 08/17/21 clopidogrel 75 mg tablet (Plavix) 75 mg PO DAILY antiplatlet 11/28/21 amitriptyline 50 mg tablet 50 mg PO DAILY depression 08/16/23 famotidine 40 mg tablet 40 mg PO DAILY GERD 08/16/23 ipratropium bromide 42 mcg (0.06 %) nasal spray 2 spray intranasal 4X/DAY PRN PRN allergy symptoms 08/16/23 levocetirizine 5 mg tablet 5 mg PO DAILY allergies 08/16/23 pantoprazole 40 mg tablet,delayed release 40 mg PO DAILY GERD 08/16/23 albuterol sulfate 90 mcg/actuation aerosol inhaler 2 puff inhalation Q6H PRN sob wheezes 08/18/23 multivitamin (Daily Multi-Vitamin tablet) 1 tab PO DAILY supplement 09/28/23 amoxicillin 875 mg-potassium clavulanate 125 mg tablet 1 tab PO BID #10 tabs 10/02/23 prednisone 10 mg tablet 40 mg (4 x 10 mg) PO BREAKFAST #0 tabs 10/02/23 Hospital Course Operations None Procedures None Summary of Care Provided Minutes Spent on Discharge: 34 Hospital Course: Per HPI: The patient is an 87 y/o F w/ PMHx: 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 Seizure disorder, CAD, HF with recovered EF, HTN, HLD, GERD, Allergic rhinitis, Dementia unclear type with unclear behavioral disturbance history, most recent discharge 08/19/23 following evaluation and treatment of altered mental status with workup/evaluation notable for brain mass favoring meningioma with vasogenic edema with declined neurosurgery evaluation and transfer with supportive management request with deferral of steroids given concern for potentially worsening of her delirium and underlying dementia who now represents to the [facility] ED on 09/28/23 with history of altered level of consciousness reportedly per facility more tired over the last several days found at approximately 7 PM on day of presentation unresponsive in her bed with oxygenation down to 84% prompting EMS evaluation noted upon arrival to be answering some questions and moving all extremities however she had an axillary temperature elevated to 101.Workup in the ED included T101, heart rate 112, BP 114/43, respiratory rate 20, 91% on room air, CBC with WBC 20.5, hemoglobin 10.7, MCV 84.1, platelet 326 with significant left shift and lymphopenia, unremarkable coags, CMP with BUN/creatinine 24/0.98, GFR 57, glucose 120, hepatic profile not marked appearing, lactic acid 1.3, chest x-ray with significant right-sided infiltrates concerning for aspiration with final read pending upon evaluation of patient, CT brain with large 3 cm mass continued to calcifications with surrounding edema of the midline anterior fossa skull base with ventricular size unchanged with no evidence of any acute intracranial hemorrhage, urinalysis not marked appearing with urine protein 15, occult blood 10, negative nitrite, leukocyte Estrace 100 with no marked urine WBCs or urine bacteria identified, blood culture x 2 pending per ED, urine culture pending per ED, EKG with sinus tachycardia with no acute evidence of ischemia. In the ED patient administered maintenance IV fluids and rectal Tylenol 650 mg x 1. Hospital Course: 1. Acute metabolic encephalopathy secondary to aspiration pneumonia in the setting of a known brain mass ? Physical condition does appear to be improved proved with the Unasyn, can transition to Augmentin when ready for discharge ? She is continually confused which is her baseline ? There was a concern for possible seizures so neurology was consulted but felt that the EEG did not demonstrate any epileptic activity did not recommend any antiepileptics ? PT/OT ? Family declined any neurosurgical evaluation for the brain mass she is a DNR CCA ? She did receive pre-CERT for intermediate care at [facility], discussed with plan for discharge today she is doing much better and her white count has resolved. Will taper her steroids secondary to her meningioma as there is concern for possible vasogenic edema. Will continue with Augmentin for another 5 days on discharge. 2. Essential HTN/HLD ? Blood pressures are stable/continue with her home medications ? Will monitor make adjustments as necessary ? Continue with antiplatelet for history of CVA 3. GERD ? Stable ? Continue with PPI 4. Anxiety/depression/dementia ? Stable ? Continue with her home medications 5. COPD ? Not in exacerbation ? Continue with her home inhalers Physical Exam Narrative General: Alert, confused, Cooperative, No apparent distress HEENT: Atraumatic, PERRLA, EOMI, Normocephalic Oral: Moist Mucosa Neck: Supple, No JVD Lungs: Diminished, Normal air movement, No rhonchi, No wheeze, No rales Cardiovascular: Regular rate, Regular Rhythm, Normal S1, Normal S2, No murmurs Abdomen: Soft, Non Tender, Non-Distended, No Hepato-splenomegaly Extremities: No edema, Capillary Refill Less than 3 Seconds Skin: No rashes, No breakdown Musculoskeletal: No Tenderness to Palpation of Joints or Extremities Neurological: No focal neurological deficits, Motor Exam 5/5 strength throughout, Sensory exam intact to light touch and pain Psych/Mental Status: Normal Affect, Appropriate Weight / BMI Weight Weight: 136 lb 10.986 oz Body Mass Index (BMI) 20.7 ABG / Lab / Microbiology Data 10/02/23 06:56 10/02/23 06:56 Laboratory: Laboratory Results - last 24 hr 10/02/23 06:56: WBC 12.6 H, RBC 4.12 L, Hgb 10.6 L, Hct 33.9 L, MCV 82.3, MCH 25.7 L, MCHC 31.3 L, RDW Std Deviation 39.4, RDW Coeff of Karine 13.2, Plt Count 331, MPV 9.9, Immature Gran % (Auto) 1.000 H, Neut % (Auto) 79.8 H, Lymph % (Auto) 10.4 L, Luce % (Auto) 8.5, Eos % (Auto) 0.2, Baso % (Auto) 0.1, Absolute Neuts (auto) 10.1 H, Absolute Lymphs (auto) 1.32, Nucleated RBC % 0, Sodium 138, Potassium 3.1 L, Chloride 104, Carbon Dioxide 28.0, Anion Gap 6, BUN 11, Creatinine 0.67, Estim Creat Clear Calc 50.32, Est GFR (MDRD) Af Amer 108, Est GFR (MDRD) Non-Af 89, BUN/Creatinine Ratio 16.4, Glucose 86, Calcium 8.6 Microbiology: Microbiology 09/28/23 20:25 Blood Culture (Wb) - Right Forearm Blood Culture - Preliminary No growth in 48 hours. 09/28/23 20:48 Blood Culture (Wb) - Anticubital Left Blood Culture - Preliminary No growth in 48 hours. 09/28/23 20:48 Urine, Catheterized Urine Culture - Final Culture exhibits no growth. 09/28/23 20:48 Urine Catheter - Catheter Legionella Antigen - Final 09/28/23 20:48 Urine Catheter - Catheter Streptococcus pneumoniae Antigen (M - Final 09/29/23 00:18 Mucosa - Nasopharyngeal Respiratory Panel (PCR) - Final Meaningful Use Info Meaningful Use Meaningful Use Diagnoses (Choose all that apply): None applicable Ischemic Stroke Statin Dosing Therapy Reference: STATIN DOSE THERAPY REFERENCE: * Patients > 75 years receive moderate or high dose statin therapy. * Patients 75 years or YOUNGER should receive HIGH intensity statin dose unless contraindicated. You will be required to document reason for non-treatment if statin daily dose does not meet guidelines. HIGH DOSE STATIN THERAPY DAILY Atorvastatin > than or = to 40 mg Rosuvastatin > than or = to 20 mg Amlodipine + Atorvastatin > than or = to 2.5/40 mg Ezetimibe + Simvastatin 10/80 mg Simvastatin 80mg Discharge Plan Admission Admit Date/Time: 09/28/23 22:06 Attending Provider: Rizwan Rodriguez Primary Care Provider: Asad Hamlin Consulting Providers: Kailey Kenny; Nessa Jimenez; Mercy Summers; David Hayes; Matias Lugo; Evangelista Ruiz; JURGEN SANTILLAN; Bel Sethi; Monica Donahue; Juan Antonio Gauthier; Michelle Quigley; Nikole Mancuso; [place] Discharge Orders/Prescriptions Prescriptions: New prednisone 10 mg tablet 40 mg PO BREAKFAST Qty: 0 0RF Rx Instructions: Take 3 tablets daily for 2 days then 2 tablets daily for 2 days then 1 tablet daily for 2 days then half tablet daily for 2 days amoxicillin-pot clavulanate 875-125 mg tablet 1 tab PO BID Qty: 10 0RF Continued donepezil 5 MG tablet 5 mg PO QHS 0RF atorvastatin 10 mg Tablet 10 mg PO QHS diclofenac sodium [Voltaren Arthritis Pain] 1 % Gel 1 ea TOPICAL 4X/DAY clopidogrel [Plavix] 75 mg Tablet 75 mg PO DAILY multivitamin [Daily Multi-Vitamin] Tablet 1 tab PO DAILY famotidine 40 mg tablet 40 mg PO DAILY pantoprazole 40 mg tablet,delayed release (DR/EC) 40 mg PO DAILY ipratropium bromide 42 mcg (0.06 %) spray,non-aerosol 2 spray INTRANASAL 4X/DAY PRN PRN (Reason: allergy symptoms) levocetirizine 5 mg tablet 5 mg PO DAILY amitriptyline 50 mg tablet 50 mg PO DAILY albuterol sulfate 90 mcg/actuation HFA aerosol inhaler 2 puff inhalation Q6H PRN (Reason: sob wheezes) Referrals / Follow Up: Asad Hamlin MD [Primary Care Provider] - Disposition Disposition (needs filled in before D/C Order can be placed): NonSkilled NH/Intermed Care Charges/Coding Visit Charges Inpatient E&M: 67643 Disch Hosp >30min
[2023-10-02 15:17] VITALS: BP 121/67; PULSE 87; RESP 17; TEMP 36.8; O2SAT 96
--- NOTE | 2023-10-02 15:24 | NURSING ---
Report called to [facility] At [facility].
== END 2023-10-02 16:16 | disposition intermediate care facility (04) | DRG 178 ==
LOC: ED 20:36 → PCU 22:13
PROVIDERS: Admitting Provider Family Medicine; Emergency Provider Emergency Medicine; PCP Family Medicine; Visit Provider Family Medicine
DX: J69.0 Pneumonitis due to inhalation of food and vomit (principal); I13.0 Hypertensive heart and chronic kidney disease with heart failure and stage 1 through stage 4 chronic kidney disease, or unspecified chronic kidney disease; F03.C18 Unspecified dementia, severe, with other behavioral disturbance; I42.9 Cardiomyopathy, unspecified; I50.32 Chronic diastolic (congestive) heart failure; G40.909 Epilepsy, unspecified, not intractable, without status epilepticus; N18.30 Chronic kidney disease, stage 3 unspecified; J44.9 Chronic obstructive pulmonary disease, unspecified; F32.A Depression, unspecified; D32.0 Benign neoplasm of cerebral meninges; E78.5 Hyperlipidemia, unspecified; J30.9 Allergic rhinitis, unspecified; I25.10 Atherosclerotic heart disease of native coronary artery without angina pectoris; K21.9 Gastro-esophageal reflux disease without esophagitis; K22.5 Diverticulum of esophagus, acquired; F41.9 Anxiety disorder, unspecified; D72.810 Lymphocytopenia; Z87.891 Personal history of nicotine dependence; Z79.02 Long term (current) use of antithrombotics/antiplatelets; Z66 Do not resuscitate; Z86.73 Personal history of transient ischemic attack (TIA), and cerebral infarction without residual deficits
CPT/HCPCS: 36415; 70450; 71045; 74230; 80048; 80053; 81001; 83605; 83735; 84100; 85025; 85610; 85730; 87040; 87086; 87449; 87633; 87641; 92526; 92610; 92611; 93005; 97162; 97166; 97530; 97535; 97802; 99285; A4216; J0295

== ENCOUNTER → 2023-10-21 | Outpatient (REF) | payer MEDICARE, SELFPAY ==
[2023-10-21 10:35] LABS: Anion Gap 4 (5-15); BUN 33 mg/dL (7-18); BUN/Creat Ratio 29.5 RATIO (10-20); Calcium,Total 9.1 mg/dL (8.5-10.1); Chloride 105 mmol/L (98-107); Creatinine, Serum 1.12 mg/dL (0.55-1.02); EST Glomerular Filtration Rate 49 mL/min (>60); Est Glom Filt Rate - Afr Amer 59 mL/min (>60); Glucose 86 mg/dL (74-106); Potassium 4.2 mmol/L (3.5-5.1); Sodium Level 138 mmol/L (136-145)
[2023-10-21 10:36] LABS: Hematocrit 32.7 % (37-47); Hemoglobin 9.8 g/dL (12.0-15.0); Mean Corpuscular Hgb 25.4 pg (27.0-32.0); Mean Corpuscular Volume 84.7 fL (81-99); Mean Platelet Vol. 10.1 fl (6.2-12.0); Platelet Count 330 K/mm3 (150-450); RBC Distribution Width CV 13.7 % (11.6-14.6); RBC Distribution Width SD 42.3 fl (35.1-43.9); Red Blood Count 3.86 M/mm3 (4.2-5.4); White Blood Count 5.1 K/mm3 (4.4-11.0)
== END ==
LOC: OLS.SW 05:00
PROVIDERS: PCP Family Medicine; Visit Provider Family Medicine
DX: R45.1 Restlessness and agitation (principal); E78.5 Hyperlipidemia, unspecified
CPT/HCPCS: 36415; 80048; 85027

== ENCOUNTER 2023-10-29 14:39 | Inpatient (IN) | payer MEDICARE, SELFPAY ==
[2023-10-29] VITALS (15 sets, daily range): BP systolic 111–156; BP diastolic 61–106; PULSE 72–131; RESP 12–44; TEMP 36.1–37.1; O2SAT 82–98; BMI 18.5; BMI 38.7
--- NOTE | 2023-10-29 15:00 | ED.VIS.DYS ---
HPI History of Present Illness Chief Complaint: Shortness of Breath Informant: patient and SNF Onset/Context/Timing Onset: Today Context: gradual Timing: Continuous Quality: Positive for Wheezing Current Severity: Moderate Maximum Severity: Moderate Worsened by: Nothing Relieved by: Nothing Associated Symptoms cough Chest Pain: Positive for None Narrative Narrative: 87-year-old female from this visit was to the care facility history of prior aspiration pneumonia, dementia, CHF, prior stroke, COPD and cardiomyopathy. Patient is typically not on oxygen. Today was found extended-care facility with shortness of breath hypoxia with pulse ox 82% on room air. She does have a DNR Comfort Care arrest CODE STATUS. Patient is a very limited informant. PE Risk Factors: Negative for Cancer, OCP + Smoking + > 35, Prior DVT or PE, Recent immobilization, Recent surgery or Recent travel Prior similar symptoms: Yes Recent Illness/Hospitalization: No PFSH PFS Medical History (Updated 10/29/23 @ 16:[address] Kita Bautista, DO) Anemia Dementia Chronic systolic (congestive) heart failure Seizure CVA (cerebral vascular accident) Atherosclerotic heart disease of [place] coronary artery without angina pectoris Essential hypertension Concussion Fall SDH (subdural hematoma) Debility Right arm pain Stroke Cardiomyopathy HLD (hyperlipidemia) CAD (coronary artery disease) Abnormal ECG COPD (chronic obstructive pulmonary disease) Home Medications ?Medication ?Instructions ?Recorded ?Last Taken ?Type donepezil 5 mg tablet 5 mg PO QHS dementia 12/02/17 Unknown Rx atorvastatin 10 mg tablet 10 mg PO QHS cholesterol 08/17/21 Unknown History diclofenac sodium 1 % topical gel 1 ea topical 4X/DAY pain arthritis 08/17/21 Unknown History (Voltaren Arthritis Pain) clopidogrel 75 mg tablet (Plavix) 75 mg PO DAILY antiplatlet 11/28/21 Unknown History amitriptyline 50 mg tablet 50 mg PO DAILY depression 08/16/23 Unknown History famotidine 40 mg tablet 40 mg PO DAILY GERD 08/16/23 Unknown History ipratropium bromide 42 mcg (0.06 2 spray intranasal 4X/DAY PRN PRN 08/16/23 Unknown History %) nasal spray allergy symptoms levocetirizine 5 mg tablet 5 mg PO DAILY allergies 08/16/23 Unknown History pantoprazole 40 mg tablet,delayed 40 mg PO DAILY GERD 08/16/23 Unknown History release albuterol sulfate 90 mcg/actuation 2 puff inhalation Q6H PRN sob 08/18/23 Unknown History aerosol inhaler wheezes multivitamin (Daily Multi-Vitamin 1 tab PO DAILY supplement 09/28/23 Unknown History tablet) amoxicillin 875 mg-potassium 1 tab PO BID #10 tabs 10/02/23 Unknown Rx clavulanate 125 mg tablet prednisone 10 mg tablet 40 mg (4 x 10 mg) PO BREAKFAST #0 10/02/23 Unknown Rx tabs Allergy/AdvReac Type Severity Reaction Status Date / Time Sulfa (Sulfonamide Allergy Severe Hives Verified 10/29/23 14:46 Antibiotics) gabapentin AdvReac PT UNABLE Verified 10/29/23 14:46 TO RESPOND-NEEDS F/U zolpidem (From Ambien) AdvReac Unknown Verified 10/29/23 14:46 Family History Father Myocardial infarction, Onset Age: 75 Surgical History History of spinal fusion History of left heart catheterization (LHC) (~05/23/06) Social History housing: assisted living facility Smoking Status: Former smoker alcohol intake: current details: occasional substance use type: does not use ROS ROS ED ROS Narrative Shortness of breath. Wheezing. Review of Systems ROS Unobtainable: due to mental status EXAM Physical Exam Narrative Exam Narrative: 87-year-old female sitting upright in bed. No family is present in the room. Vital signs show a pulse of 82% on room air consistent with hypoxia. She is afebrile. She is tachycardic. She has increased respiratory rate and work of breathing. Respiratory rates about 30. She has audible wheezing and crackles. H EENT exam pupils round react light. No facial droop or trauma. Neck nontender no JVD. Lungs expiratory wheezing. Rales. No rhonchi appreciated. Heart tachycardic rate about 110 no murmur. Chest wall ribs nontender. Abdomen soft nontender. Back nontender. Moving all 4 extremities. Nontender no edema. Neurologically she is awake her eyes room. She is a very limited informant. She has a history of dementia. Const Vital Signs: 10/29/23 14:40 10/29/23 14:44 10/29/23 14:46 Temperature 97.4 F L 97.2 F L Temperature Source Temporal Temporal Pulse Rate 112 H 107 H Respiratory Rate 30 H 32 H Respiratory Effort Short of Breath Labored Respiratory Depth Deep Respiratory Pattern Tachypnea Blood Pressure 151/90 H 142/101 H Blood Pressure Mean 110 114 Pulse Ox 82 90 Oxygen Delivery Method Room Air Nasal Cannula Room Air Oxygen Flow Rate (L/min) 4 4 10/29/23 14:49 10/29/23 14:53 10/29/23 15:09 Temperature Temperature Source Pulse Rate Respiratory Rate Respiratory Effort Respiratory Depth Respiratory Pattern Blood Pressure Blood Pressure Mean Pulse Ox 94 93 Oxygen Delivery Method Nasal Cannula Nasal Cannula Nasal Cannula Oxygen Flow Rate (L/min) 4 4 4 10/29/23 15:09 Temperature Temperature Source Pulse Rate 106 H Respiratory Rate 22 H Respiratory Effort Respiratory Depth Respiratory Pattern Tachypnea Blood Pressure Blood Pressure Mean Pulse Ox Oxygen Delivery Method Oxygen Flow Rate (L/min) Positive well nourished and well developed; Negative for obese, cachectic or contractures General Appearance ED: well developed; Negative for cachectic, contractures, NAD or pallor Nutritional Appearance: Negative for cachectic or obese HEENT Reports moist mucous membranes; Denies dry mucous membranes atraumatic; Negative for trauma or tenderness Mouth ED: No dry mucous membranes Mouth: No dry mucous membranes Eyes PERRL and EOMs intact bilaterally General Eye ED: Negative for pale conjunctiva or scleral icterus Neck no lymphadenopathy, supple, no meningeal signs and no JVD General: Negative for tenderness Lymph Lymphatic: Negative for other Resp No normal respiratory effort and No clear to auscultation bilaterally Resp Narrative: Increased respiratory rate. Rales and wheezing. Auscultation: rales and wheezes Cardio regular rhythm, S1 normal heart sound, S2 normal heart sound and no murmurs; Negative for regular rate Rate: tachycardic GI non-tender, non-distended and no masses Inspection: Negative for other Auscultation: normoactive bowel sounds Palpation: soft; Negative for tender, guarding or rebound tenderness present Back/Spine no CVA tenderness and normal to inspection General Back: Negative for CVA tenderness Extremity normal to inspection General Extremety ED: Negative for edema, tenderness or other findings General Extremity: Negative for edema or other findings Neuro No oriented x3 and CN's II-XII intact bilaterally Neuro Narrative: Demented. Confused. Eyes open. Very poor informant. Sensorium / Orientation: alert, oriented to person, orientation impaired and confused; Negative for oriented to place or oriented to time Psych mental status grossly normal Attitude: No agitated Mood & Affect: Negative for depressed, anxious or tearful Thought Process: No normal thought process Skin no wounds General Skin Exam: Negative for jaundice or pallor Lesions: no lesions Rashes: no rashes MDM MDM MDM Narrative Medical decision making narrative: 87-year-old hypoxic lesion with longterm may be secondary to CHF, COPD due to her wheezing. Versus pneumonia or aspiration pneumonia. Clinically less likely to be PE. Cardiac workup. Both DuoNeb and albuterol aerosols. IV Solu-Medrol. She is DNR Comfort Care arrest. Repeat exam at 3:37 PM no significant change. Patient's pulse ox currently is 93% on 4 L. COVID and flu will be sent. Her labs did not show any significant abnormality. This could be an underlying aspiration pneumonia just has not shown up yet on chest x-ray. Could be a COPD flare. Versus a viral syndrome. I did speak to patient's nurse, Celi, at the [facility]. She is in multiple people there of respiratory infections. They have no current diagnoses of COVID. I went over the patient's test with her explaining we are going admit her. I have the hospitalist on page. History & Record Review Discussion w/independent historian: Patient Additional record(s) reviewed:: Prior inpatient record, Prior outpatient record, Prior ED visit and Prior labs Lab Data Attestation: I reviewed the patient's lab results. Lab results narrative: CBC shows a white count 8. H&H 11 and 37. Platelets 317. Electrolytes show a gap of 7. BUN and creatinine 25 and 1. Glucose 146. Troponin normal at 22. BNP of 102. Labs are consistent with baseline when compared to prior studies. Labs: Laboratory Results - last 24 hr 10/29/23 14:50 WBC 8.0 RBC 4.46 Hgb 11.0 L Hct 37.4 MCV 83.9 MCH 24.7 L MCHC 29.4 L RDW Std Deviation 41.7 RDW Coeff of Karine 13.7 Plt Count 317 MPV 9.3 Immature Gran % (Auto) 0.500 Neut % (Auto) 73.9 H Lymph % (Auto) 18.8 L Bennett % (Auto) 6.4 Eos % (Auto) 0.1 Baso % (Auto) 0.3 Absolute Neuts (auto) 5.9 Absolute Lymphs (auto) 1.50 Nucleated RBC % 0 Sodium 136 Potassium 3.9 Chloride 103 Carbon Dioxide 26.0 Anion Gap 7 BUN 25 H Creatinine 1.09 H Estim Creat Clear Calc 32.94 Est GFR (MDRD) Af Amer 61 Est GFR (MDRD) Non-Af 51 L BUN/Creatinine Ratio 22.9 H Glucose 146 H Calcium 8.7 Troponin I High Sens 22 B-Natriuretic Peptide 102.7 H Radiography Chest X-Ray - ED: 1 View, Read by ED Physician, Read by Radiologist, Heart, Lungs, Mediastinum, Bony Structures, No Acute Disease and Chronic Changes Diagnostic Testing: Clinical Impression(s) from Imaging Studies Chest X-Ray 10/29/23 15:10 IMPRESSION: Hyperinflation. Mild scarring at the lung bases. No acute abnormality is seen. Electronically Signed: Francisco Hairston MD at 15:34 EDT , Chest x-ray, portable, single view interpreted both by myself and the radiologist shows no acute abnormality. Normal cardiac silhouette. Normal lung piper. Chronic changes. No obvious pneumonia. No pneumothorax. No pleural effusions. No CHF. Rhythm Strip Rhythm Strip: Sinus Tach Rate: 107 Ectopy: None EKG Initial EKG: Attestation: I personally reviewed and interpreted this EKG as follows: Interpretation: No Acute Injury Pattern and Sinus Tachycardia Comments: Sinus tachycardia with PACs. No acute signs of [place] or ischemia. Discharge Plan Dx/Rx/DC Orders Clinical Impression: Acute dyspnea, History of aspiration pneumonia, History of dementia, Hypoxia Disposition Disposition: Acute Care [facility]
[2023-10-29 15:03] LABS: Absolute Neutrophil Count 5.9 X10^3/uL (2.0-7.7); Basophil# 0.02 X10^3/uL; Basophil% 0.3 % (0-1); Eosinophil# 0.01 X10^3/uL; Eosinophils% 0.1 % (0-5); Hematocrit 37.4 % (37-47); Lymphocyte % 18.8 % (19-41); Mean Corp Hgb Conc 29.4 g/dL (32-36); Mean Corpuscular Hgb 24.7 pg (27.0-32.0); Mean Corpuscular Volume 83.9 fL (81-99); Mean Platelet Vol. 9.3 fl (6.2-12.0); Monocyte# 0.51 X10^3/uL; Monocyte% 6.4 % (0-10); NRBC Flagged by Analyzer 0 % (0-5); Neutrophil # 5.89 X10^3/uL (2.7-7.7); Neutrophil % 73.9 % (47-70); Platelet Count 317 K/mm3 (150-450); RBC Distribution Width CV 13.7 % (11.6-14.6); RBC Distribution Width SD 41.7 fl (35.1-43.9); Red Blood Count 4.46 M/mm3 (4.2-5.4)
[2023-10-29] MEDS: Albuterol 2.5 MG/3 ML VIAL.NEB. INHALATION (15:06)
[2023-10-29] MEDS: Ipratropium/Albuterol Sulfate 3 ML AMPUL.NEB INHALATION (15:06)
[2023-10-29] MEDS: MethylPREDNISolone 125 MG/2 ML Vial IV (15:08)
--- NOTE | 2023-10-29 15:10 | RAD_ITS ---
STUDY: X-RAY CHEST REASON FOR EXAM: Female, 87 years old. Chest pain. TECHNIQUE: Single AP portable view of the chest. COMPARISON: Comparison is made with prior study dated September 28, 2023. FINDINGS: EKG electrodes are seen. Hyperinflation. Minimal increased linear markings at the lung bases suggestive of mild scarring. There is no demonstrated pleural abnormality. Normal size heart. Normal mediastinum and staci. Normal visualized pulmonary arteries. There is atherosclerotic calcification of the aortic arch with tortuosity. There are diffuse degenerative changes of the visualized thoracic spine. Levoscoliosis. There is degenerative osteoarthritis of the bilateral shoulders. There is no demonstrated abnormality of the visualized soft tissue structures of the upper abdomen. RAD/Chest 1 View (Portable) IMPRESSION: Hyperinflation. Mild scarring at the lung bases. No acute abnormality is seen. Electronically Signed: Francisco Hairston MD at 15:34 EDT ,
[2023-10-29 15:23] LABS: Anion Gap 7 (5-15); BUN 25 mg/dL (7-18); BUN/Creat Ratio 22.9 RATIO (10-20); Calcium,Total 8.7 mg/dL (8.5-10.1); Chloride 103 mmol/L (98-107); Creatinine, Serum 1.09 mg/dL (0.55-1.02); EST Glomerular Filtration Rate 51 mL/min (>60); Est Glom Filt Rate - Afr Amer 61 mL/min (>60); Estimated Creatinine Clearance 32.94 ml/min; Glucose 146 mg/dL (74-106); Potassium 3.9 mmol/L (3.5-5.1); Sodium Level 136 mmol/L (136-145); Troponin-I HS 22 pg/mL (3.0-54.0)
[2023-10-29 15:25] LABS: BNP,B-Type NATRIURETIC PEPTIDE 102.7 pg/mL (0-100)
--- NOTE | 2023-10-29 15:56 | HP.PCM.HOS_ITS ---
HPI - General General Date of Admission: 10/29/23 Date of Service: 10/29/23 Chief Complaint: Shortness of Breath HPI Narrative MARINA ESPINO, is a 87 F who present to the emergency department at [facility] on 10/29/2023 with a chief complaint of shortness of breath. She presented from local long-term and the patient has a history of dementia and is a poor informant. She is evidently not typically on oxygen but was [facility] at the [facility] with shortness of breath and hypoxia having oxygen saturation of 82% on room air. At baseline the patient is evidently alert and oriented only to self. Per discussion with patient's family she has been dwindling and having increased weight loss and decreased quality of life at the nursing facility. She is unable to give me any history however the time of my evaluation she was markedly tachypneic with respiratory rates in the 40s, hypertensive due to respiratory distress, significant agitated having difficulty keeping her oxygen on, and tachycardic with heart rates in the 140s. Per the ER physician many people at the facility at which she resides have had upper respiratory infections. Patient does have known COPD with previous tobacco abuse history, asthma, and chronic systolic heart failure however last echocardiogram from 2019 showed an EF of 55% with diastolic dysfunction and right ventricular systolic pressure 25 mmHg. Baseline CODE STATUS from the nursing facility was documented as DNR CCA with no intubation Vital signs on presentation showed temperature of 97.4, heart rate was 112, respiratory rate was 30, blood pressure was 151/90 and oxygen saturation was 82% on room air. Her CBC showed a mild anemia and a left shift with a 73.9% neutrophilia however her white count was normal at 8.0. Chemistry panel showed mild dehydration with a serum creatinine of 1.09 and a baseline of 0.5-0.8. Glucose was 146, troponin was 22, and BNP was slightly elevated 102.7. With her respiratory distress and exam at the time of my evaluation I obtained a lactic acid which was 3.8 and an ABG which was done on 6 L nasal cannula showing a pH of 7.35/pCO2 of 44.5 and a pO2 of 44. Sats were estimated at 77%. At the time my evaluation, her monitor also revealed a wide-complex tachycardia which appeared to be atrial fibrillation with aberrancy based on her twelve-lead EKG. Her initial twelve-lead EKG showed sinus tachycardia with few PACs and no ST-T wave changes concerning for acute ischemia. Chest x-ray showed hyperinflation with mild scarring of the lung bases and no acute abnormality seen. COVID/flu/RSV testing was performed and her COVID-19 test was positive. During my evaluation, one of her son showed up at the bedside and then another showed up and we were able to get on the phone with her daughter who lives in [place] to have a conversation about goals of care. Overall it seems like she was dwindling and her daughter reports that she was quite active and independent lady prior to her dementia setting in. They all agreed that she would not want to live in the current situation she was living and felt that comfort care would be appropriate in this situation and wanted us to keep her quant comfortable. [facility] Medical History (Updated 10/29/23 @ 16:[address] Kita Bautista, ) Anemia Dementia Chronic systolic (congestive) heart failure Seizure CVA (cerebral vascular accident) Atherosclerotic heart disease of viejas coronary artery without angina pectoris Essential hypertension Concussion Fall SDH (subdural hematoma) Debility Right arm pain Stroke Cardiomyopathy HLD (hyperlipidemia) CAD (coronary artery disease) Abnormal ECG COPD (chronic obstructive pulmonary disease) Home Medications ?Medication ?Instructions ?Recorded ?Last Taken ?Type donepezil 5 mg tablet 5 mg PO QHS dementia 12/02/17 Unknown Rx atorvastatin 10 mg tablet 10 mg PO QHS cholesterol 08/17/21 Unknown History diclofenac sodium 1 % topical gel 1 ea topical 4X/DAY pain arthritis 08/17/21 Unknown History (Voltaren Arthritis Pain) clopidogrel 75 mg tablet (Plavix) 75 mg PO DAILY antiplatlet 11/28/21 Unknown History amitriptyline 50 mg tablet 50 mg PO DAILY depression 08/16/23 Unknown History famotidine 40 mg tablet 40 mg PO DAILY GERD 08/16/23 Unknown History ipratropium bromide 42 mcg (0.06 2 spray intranasal 4X/DAY PRN PRN 08/16/23 Unknown History %) nasal spray allergy symptoms levocetirizine 5 mg tablet 5 mg PO DAILY allergies 08/16/23 Unknown History pantoprazole 40 mg tablet,delayed 40 mg PO DAILY GERD 08/16/23 Unknown History release albuterol sulfate 90 mcg/actuation 2 puff inhalation Q6H PRN sob 08/18/23 Unknown History aerosol inhaler wheezes multivitamin (Daily Multi-Vitamin 1 tab PO DAILY supplement 09/28/23 Unknown History tablet) amoxicillin 875 mg-potassium 1 tab PO BID infection #10 tabs 10/02/23 Unknown Rx clavulanate 125 mg tablet prednisone 10 mg tablet 40 mg (4 x 10 mg) PO BREAKFAST not 10/02/23 Unknown Rx listed on med list #0 tabs Allergy/AdvReac Type Severity Reaction Status Date / Time Sulfa (Sulfonamide Allergy Severe Hives Verified 10/29/23 14:46 Antibiotics) gabapentin AdvReac PT UNABLE Verified 10/29/23 14:46 TO RESPOND-NEEDS F/U zolpidem (From Ambien) AdvReac Unknown Verified 10/29/23 14:46 Family History Father Myocardial infarction, Onset Age: 75 Surgical History History of spinal fusion History of left heart catheterization (LHC) (~05/23/06) Social History (Updated 10/29/23 @ 19:[address] Kita Bautista DO) housing: long-term Smoking Status: Former smoker alcohol intake: never details: occasional substance use type: does not use ROS Review of Systems ROS Unobtainable: due to mental condition and other Details: dementia Vital Signs Vital Signs Vital Signs: 10/29/23 14:40 10/29/23 14:44 10/29/23 14:46 Temperature 97.4 F L 97.2 F L Temperature Source Temporal Temporal Pulse Rate 112 H 107 H Respiratory Rate 30 H 32 H Respiratory Effort Short of Breath Labored Respiratory Depth Deep Respiratory Pattern Tachypnea Blood Pressure 151/90 H 142/101 H Blood Pressure Mean 110 114 Pulse Ox 82 90 Oxygen Delivery Method Room Air Nasal Cannula Room Air Oxygen Flow Rate (L/min) 4 4 10/29/23 14:49 10/29/23 14:53 10/29/23 15:09 Temperature Temperature Source Pulse Rate Respiratory Rate Respiratory Effort Respiratory Depth Respiratory Pattern Blood Pressure Blood Pressure Mean Pulse Ox 94 93 Oxygen Delivery Method Nasal Cannula Nasal Cannula Nasal Cannula Oxygen Flow Rate (L/min) 4 4 4 10/29/23 15:09 Temperature Temperature Source Pulse Rate 106 H Respiratory Rate 22 H Respiratory Effort Respiratory Depth Respiratory Pattern Tachypnea Blood Pressure Blood Pressure Mean Pulse Ox Oxygen Delivery Method Oxygen Flow Rate (L/min) Weight Weight: 55.3 kg Body Mass Index (BMI) 18.5 Physical Exam Const alert; Negative for oriented x3, no apparent distress, average body habitus or healthy appearing Constitutional Narrative: Agitated, elderly, white female, lying in bed with 2 nurses at the bedside holding her hands trying to enable keeping her oxygen in place as she kept pulling it off, patient is markedly confused and only oriented to self, appears ill General Appearance: uncooperative Orientation / Consciousness: confused and disoriented HEENT normocephalic and head/scalp atraumatic HEENT Narrative: Dentition is poor, Mallampati is 1-2, no thrush Eyes PERRL and conjunctivae normal Neck no lymphadenopathy and supple Neck Narrative: Trachea midline, no thyroid enlargement Resp No normal respiratory effort, No no retractions, no use of accessory muscles and No clear to auscultation bilaterally Resp Narrative: Markedly tachypneic with diffuse rhonchi and wheezes and few scattered crackles Cardio S1 normal heart sound, S2 normal heart sound, no murmurs, no rub, no gallops and no clicks Cardio Narrative: Tachycardic with irregularly irregular rhythm GI normal to inspection, nondistended, normoactive bowel sounds, soft to palpation and non-tender Extremity Extremity Narrative: Trace bilateral lower extremity edema, pitting in nature, radial and pedal pulses are 2+ Skin no jaundice, no petechiae and no mottling Skin Narrative: Scattered ecchymosis with no significant wounds noted Neuro Neuro Narrative: Very confused, spontaneously moves all extremities but does not follow commands consistently, no significant meaningful conversation Sensorium / Orientation: awake, alert and oriented to person; Negative for oriented to place or oriented to time Speech: Negative for speech normal Psych Psych Narrative: Unable to assess Results Lab / Micro Data 10/29/23 14:50 10/29/23 14:50 Labs: Laboratory Results - last 24 hr 10/29/23 14:50: WBC 8.0, RBC 4.46, Hgb 11.0 L, Hct 37.4, MCV 83.9, MCH 24.7 L, M CHC 29.4 L, RDW Std Deviation 41.7, RDW Coeff of Karine 13.7, Plt Count 317, MPV 9.3, Immature Gran % (Auto) 0.500, Neut % (Auto) 73.9 H, Lymph % (Auto) 18.8 L, [place] % (Auto) 6.4, Eos % (Auto) 0.1, Baso % (Auto) 0.3, Absolute Neuts (auto) 5.9, Absolute Lymphs (auto) 1.50, Nucleated RBC % 0, Sodium 136, Potassium 3.9, Chloride 103, Carbon Dioxide 26.0, Anion Gap 7, BUN 25 H, Creatinine 1.09 H, Estim Creat Clear Calc 32.94, Est GFR (MDRD) Af Amer 61, Est GFR (MDRD) Non-Af 51 L, BUN/Creatinine Ratio 22.9 H, Glucose 146 H, Calcium 8.7, Troponin I High Sens 22, B-Natriuretic Peptide 102.7 H Rhythm Strip Rhythm Strip: Sinus Tach Rate: 107 Ectopy: None Imaging Radiology Impression Chest X-Ray 10/29/23 15:10 IMPRESSION: Hyperinflation. Mild scarring at the lung bases. No acute abnormality is seen. Electronically Signed: Francisco Hairston MD at 15:34 EDT , Assessment & Plan Assessment/Plan (1) Acute hypoxic respiratory failure: (2) Shortness of breath: (3) Elevated serum creatinine: (4) Hyperglycemia: PLAN: Plan Assessment: Acute hypoxic respiratory failure secondary to COVID-19 Shortness of breath Elevated serum creatinine Hyperglycemia Toxic/metabolic encephalopathy secondary to the above in the setting of chronic dementia of unspecified type Dysphagia with history of aspiration pneumonia History of brain mass Hyperlipidemia History of tobacco abuse Chronic anemia History of stroke History of seizure History of subdural hematoma CAD GERD Seasonal allergies Plan: -Highly suspect her respiratory failure is multifactorial however as patient has a history of CHF, COPD, aspiration and dementia -After extensive conversation with daughter and sons who are at the bedside they elected to pursue comfort care measures and keep her comfortable as patient was markedly agitated and pulling off her oxygen we did discuss that for aggressive care at this time we would have to place her on BiPAP and put her on Precedex Family had indicated that her overall functional status and quality of life had deteriorated significantly in the last several months and she lost a significant amount of weight and or intake was less -Comfort medications initiated and patient was medicated with morphine 4 mg IV in the emergency department with improvement in her agitation and comfort -Palliative care/hospice order set initiated for comfort medications -DNR CATALOGUE ILLUSTRATOR order placed -Hospice consult in place Charges/Coding Visit Charges Inpatient E&M: 66884 Init Hosp L3
[2023-10-29] MEDS: Haloperidol Lactate 5 MG/ML Vial 1 MG IM (16:27)
[2023-10-29] MEDS: Metoprolol Tartrate 5 MG/5 ML Vial IV (16:35)
[2023-10-29 16:39] LABS: Allen Test Positive; Base Excess -1 mmol/L (-2 to +2); Bicarbonate 24.3 mmol/L (22-26); Blood Gas Specimen Type ART; Mode Not entered; O2 Delivery Device Cannula; PO2 44 mmHG (75-100); SITE R Radial; SO2 77 % (95-99); Total Carbon Dioxide 26 mmol/L; pCO2 44.5 mmHg (35-45); pH 7.35 (7.35-7.45)
[2023-10-29 17:13] LABS: Lactic Acid 3.8 mmol/L (0.4-1.9)
[2023-10-29] MEDS: Morphine 4 MG/ML Syringe IV (17:15)
[2023-10-29] MEDS: Morphine 2 MG/ML Syringe IV (17:49)
[2023-10-29] MEDS: Furosemide 40 MG/4 ML Vial IV (18:01)
--- NOTE | 2023-10-29 18:32 | NURSING ---
information faxed to [facility] hospice referral line
--- NOTE | 2023-10-29 18:55 | NURSING ---
talked with Dr. Bautista and senior housekeeper mariella as homeworker had called [facility] to get POA papers faxed over, per [facility] nurse pt has a guardian and information is suppose to be given to daughter Aleta Ochoa from [place]. [facility] was going to try to fax over paperwork they had but we were informed they weren't sure if they even had poa or guardianship paperwork. attempted to reach Guardian Roxana Norton listed on [facility] demographics, message left requesting a return call.
--- NOTE | 2023-10-29 19:01 | NURSING ---
hospice referral called w/ update on guardian involved.
--- NOTE | 2023-10-29 19:45 | PCM.HOSP.N ---
Hospitalist Note We found out after my conversation with the that the pt as a legal guardian of which we were not aware of initially in the ED. (family did not relay this information to me at the time of the conference call with the family) We did call the daughter back and she verified that Jennifer Norton is the Director Sales Support who is responsible and is indeed HCPOA. We are trying to get a hold of Ms Norton but have not yet been able to reach her. If we are unable to verify this Code Status, I will need to transition her care to DNRCCA no ETT and transfer her to the ICU until we can have further conversation with her Guardian.
[2023-10-29 20:39] LABS: Reflex Lactate? Y
--- NOTE | 2023-10-29 20:45 | PCM.HOSP.N ---
Hospitalist Note Was able to discuss with Guardian Jennifer Norton who after our conversation with regards to her overall quality of life and current medical condition agrees with the current POC for DNR-SONAR SUBSYSTEM EQUIPMENT OPERATOR and comfort measures with hospice consult if pt does not through the night. MS 3 charge notified. Ms Norton's cell number is [phone] and she is available anytime for conversation.
[2023-10-29 22:01] LABS: Lactic Acid 1.1 mmol/L (0.4-1.9)
[2023-10-29] MEDS: 0.9% Saline Lock 10 ML Syringe IV (22:30)
[2023-10-30 00:27] VITALS: PULSE 80; O2SAT 92
[2023-10-30 02:32] VITALS: PULSE 87; RESP 26; O2SAT 94
[2023-10-30 05:29] VITALS: BP 122/57; PULSE 78; RESP 26; TEMP 36.6; O2SAT 94
[2023-10-30 05:46] VITALS: PULSE 80; O2SAT 95
[2023-10-30] MEDS: 0.9% Saline Lock 10 ML Syringe IV ×2 (07:04→14:50)
[2023-10-30] MEDS: Morphine 4 MG/ML Syringe IV ×2 (07:04→14:49)
[2023-10-30] MEDS: Ondansetron 4 MG/2 ML Vial IV (07:04)
[2023-10-30] MEDS: LORazepam 2 MG/ML Bottle 0.5 MG SL (07:26)
[2023-10-30 07:40] VITALS: O2SAT 94
--- NOTE | 2023-10-30 08:32 | CASEMGMT ---
Social Work - EMERGENCY CONTACTS/LEGAL GUARDIAN Patient has a legal guardian, Environmental Research Scientist Roxana Norton: office [phone], cell is [phone]. Secure email sent to legal guardian today requesting letter of guardianship. Oath of Guardian is scanned into the EMR. Other emergency contacts: Radha Price, Daughter, living in [place] - [phone] Aleta Ochoa, Daughter, living in [place] - [phone] Casey See, Son, living in [facility] [phone] Connor Dalton, brother, living in [facility] - [phone] Pranay Nirmal, friend, living in [place] - [phone], -DONIS Griffin
[2023-10-30 09:01] VITALS: BP 92/54; PULSE 72; RESP 18; RESP 28; TEMP 37.2; O2SAT 94
[2023-10-30] MEDS: Morphine 2 MG/ML Syringe IV (09:04)
--- NOTE | 2023-10-30 10:41 | CASEMGMT ---
Addendum entered by Destiny Gusman 10/30/23 13:44: Social Work [facility] to be at [facility] at 1400 to assess patient for admission. KIARRA Bhandari Original Note: Social Work SW placed call to [facility]. Referral has been received and hospice has been in contact with pt's guardian. Consents have been sent to the Guardian and once they are returned, hospice will schedule a time to come and assess patient. Nursing updated. KIARRA Bhandari
--- NOTE | 2023-10-30 10:58 | CASEMGMT ---
Social Work Guardianship papers obtained naming Jennifer Norton. Copy of guardianship forms placed on pt chart. KIARRA Bhandari
--- NOTE | 2023-10-30 15:49 | CASEMGMT ---
Social Work Pt has been accepted by [facility] for admission to the [facility]. Hospice nurse notified pt's guardian and dgt and arranged for transportation. [facility] notified of pt discharge to [facility]. KIARRA Bhandari
--- NOTE | 2023-10-30 16:20 | PCM.DC.SUM ---
Providers Date of Admission: 10/29/23 Date of Discharge: 10/30/23 Primary Care Physician: Dr. Asad Hamlin MD Reason For Visit: ACUTE HYPOXIC RESPIRATORY FAILURE Diagnosis Discharge Diagnosis (1) Acute hypoxic respiratory failure: Status: Acute Code(s): J96.01 - Acute respiratory failure with hypoxia (2) Shortness of breath: Status: Acute Code(s): R06.02 - Shortness of breath (3) Elevated serum creatinine: Status: Acute Code(s): R79.89 - Other specified abnormal findings of blood chemistry (4) Hyperglycemia: Status: Acute Code(s): R73.9 - Hyperglycemia, unspecified Plan 1. Acute COVID-19 infection #2 acute hypoxic respiratory failure secondary to COVID-19 infection #3 chronic dementia #4 cerebrovascular disease #5 coronary artery disease #6 chronic obstructive pulmonary disease Medications at Discharge Home Medications donepezil 5 mg tablet 5 mg PO QHS dementia 12/02/17 atorvastatin 10 mg tablet 10 mg PO QHS cholesterol 08/17/21 diclofenac sodium 1 % topical gel (Voltaren Arthritis Pain) 1 ea topical 4X/DAY pain arthritis 08/17/21 clopidogrel 75 mg tablet (Plavix) 75 mg PO DAILY antiplatlet 11/28/21 amitriptyline 50 mg tablet 50 mg PO DAILY depression 08/16/23 famotidine 40 mg tablet 40 mg PO DAILY GERD 08/16/23 ipratropium bromide 42 mcg (0.06 %) nasal spray 2 spray intranasal 4X/DAY PRN PRN allergy symptoms 08/16/23 levocetirizine 5 mg tablet 5 mg PO DAILY allergies 08/16/23 pantoprazole 40 mg tablet,delayed release 40 mg PO DAILY GERD 08/16/23 albuterol sulfate 90 mcg/actuation aerosol inhaler 2 puff inhalation Q6H PRN sob wheezes 08/18/23 multivitamin (Daily Multi-Vitamin tablet) 1 tab PO DAILY supplement 09/28/23 amoxicillin 875 mg-potassium clavulanate 125 mg tablet 1 tab PO BID infection #10 tabs 10/02/23 prednisone 10 mg tablet 40 mg (4 x 10 mg) PO BREAKFAST not listed on med list #0 tabs 10/02/23 Hospital Course Operations None Procedures None Summary of Care Provided Minutes Spent on Discharge: 32 Hospital Course: This 87-year-old white female presented to the emergency room at [facility] with a chief complaint of shortness of breath, she [facility]ically in a prison due to dementia and debility. Patient was found at the nursing facility with shortness of breath and hypoxia with an O2 saturation of 82% on room air. Workup in the emergency room showed a normal white blood cell count, oxygen saturation was 82% on room air, lactic acid was elevated at 3.8, arterial blood gas on 6 L showed a pH of 7.35, pCO2 of 44, and a pO2 of 44. Chest x-ray showed hyperinflation with mild scarring at the lung bases, COVID test was positive. Discussions were carried out by the hospitalist with the patient's son and daughter, patient was made comfort care only and admitted to [place] [id number]. She was seen in consultation by hospice and hospice agreed to accept the patient into the inpatient hospice unit in [facility]. On 10/30/2023, patient was seen and examined: On examination she appeared frail and confused, she does not appear to be in any distress-she is on oxygen. Vital signs as documented. Skin warm and dry and without overt rashes. Neck without JVD, thyroid appears normal, trachea is midline, neck is supple. Lungs clear, normal air movement was noted. Heart exam notable for regular rhythm, normal sounds and absence of murmurs, rubs or gallops. Abdomen unremarkable and without evidence of organomegaly, masses, or abdominal aortic enlargement, bowel sounds are present in all 4 quadrants, no abdominal tenderness was noted. Extremities nonedematous, no cyanosis was noted, no clubbing was noted. Neuro: Cranial nerves II through XII are grossly intact, no focal motor deficits were noted, sensation to light touch and pinprick is intact, motor exam 5/5 throughout. Psych: Patient is alert but confused, she is unable to carry on a conversation On 10/30/2023, patient was transferred to the hospice unit in [facility] in stable condition, prognosis was poor. Weight / BMI Weight Weight: 115.7 kg Body Mass Index (BMI) 38.7 ABG / Lab / Microbiology Data 10/29/23 14:50 10/29/23 14:50 Laboratory: Laboratory Results - last 24 hr 10/29/23 16:30: Lactic Acid 3.8 H* 10/29/23 21:14: Lactic Acid 1.1 Microbiology: Microbiology 10/29/23 15:41 Mucosa - Nose SARS-CoV-2, Influenza & RSV (PCR) - Final SARS-CoV-2 (COVID 19) ABG: ABG 10/29/23 16:36 Specimen Type ART Sample Site R Radial pH 7.35 Bicarbonate Actual 24.3 Total CO2 26 Base Excess -1 O2 Saturation 77 L O2 % 4.0 ABG pCO2 44.5 ABG pO2 44 L Roger Test Positive O2 Delivery Device Cannula Vent Mode Not entered Meaningful Use Info Meaningful Use Meaningful Use Diagnoses (Choose all that apply): None applicable Ischemic Stroke Statin Dosing Therapy Reference: STATIN DOSE THERAPY REFERENCE: * Patients > 75 years receive moderate or high dose statin therapy. * Patients 75 years or YOUNGER should receive HIGH intensity statin dose unless contraindicated. You will be required to document reason for non-treatment if statin daily dose does not meet guidelines. HIGH DOSE STATIN THERAPY DAILY Atorvastatin > than or = to 40 mg Rosuvastatin > than or = to 20 mg Amlodipine + Atorvastatin > than or = to 2.5/40 mg Ezetimibe + Simvastatin 10/80 mg Simvastatin 80mg Discharge Plan Admission Admit Date/Time: 10/29/23 16:02 Attending Provider: Logan Mast Primary Care Provider: Asad Hamlin Consulting Providers: Kita Bautista Discharge Orders/Prescriptions Prescriptions: No Action donepezil 5 MG tablet 5 mg PO QHS 0RF atorvastatin 10 mg Tablet 10 mg PO QHS diclofenac sodium [Voltaren Arthritis Pain] 1 % Gel 1 ea TOPICAL 4X/DAY clopidogrel [Plavix] 75 mg Tablet 75 mg PO DAILY multivitamin [Daily Multi-Vitamin] Tablet 1 tab PO DAILY prednisone 10 mg tablet 40 mg PO BREAKFAST Qty: 0 0RF Rx Instructions: Take 3 tablets daily for 2 days then 2 tablets daily for 2 days then 1 tablet daily for 2 days then half tablet daily for 2 days amoxicillin-pot clavulanate 875-125 mg tablet 1 tab PO BID Qty: 10 0RF famotidine 40 mg tablet 40 mg PO DAILY pantoprazole 40 mg tablet,delayed release (DR/EC) 40 mg PO DAILY ipratropium bromide 42 mcg (0.06 %) spray,non-aerosol 2 spray INTRANASAL 4X/DAY PRN PRN (Reason: allergy symptoms) levocetirizine 5 mg tablet 5 mg PO DAILY amitriptyline 50 mg tablet 50 mg PO DAILY albuterol sulfate 90 mcg/actuation HFA aerosol inhaler 2 puff inhalation Q6H PRN (Reason: sob wheezes) Referrals / Follow Up: Asad Hamlin MD [Primary Care Provider] - Disposition Disposition (needs filled in before D/C Order can be placed): Hospice in Medical Facility Charges/Coding Visit Charges Inpatient E&M: 06323 Disch Hosp >30min
== END 2023-10-30 15:45 | disposition hospice, inpatient (51) | DRG 177 ==
LOC: ED 15:45 → MS3 17:30
PROVIDERS: Admitting Provider Internal Medicine; Emergency Provider Emergency Medicine; PCP Family Medicine; Visit Provider Internal Medicine
DX: U07.1 COVID-19 (principal); J96.01 Acute respiratory failure with hypoxia; G92.8 Other toxic encephalopathy; I50.22 Chronic systolic (congestive) heart failure; I42.9 Cardiomyopathy, unspecified; J44.9 Chronic obstructive pulmonary disease, unspecified; F03.90 Unspecified dementia, unspecified severity, without behavioral disturbance, psychotic disturbance, mood disturbance, and anxiety; I11.0 Hypertensive heart disease with heart failure; E78.5 Hyperlipidemia, unspecified; I25.10 Atherosclerotic heart disease of native coronary artery without angina pectoris; J30.2 Other seasonal allergic rhinitis; K21.9 Gastro-esophageal reflux disease without esophagitis; R73.9 Hyperglycemia, unspecified; Z87.891 Personal history of nicotine dependence; R13.10 Dysphagia, unspecified; Z79.02 Long term (current) use of antithrombotics/antiplatelets; Z51.5 Encounter for palliative care; Z86.73 Personal history of transient ischemic attack (TIA), and cerebral infarction without residual deficits
CPT/HCPCS: 36415; 36600; 71045; 80048; 82803; 83605; 83880; 84484; 85025; 87631; 93005; 94002; 94640; 99285; A4216; J1940; J2405